=== PATIENT | male | born 1965 | race Hispanic/Latino ===

== ENCOUNTER → 2018-12-29 | Day surgery (SDC) | payer OTHER ==
[~2018-12-29] MED LIST: ATROPINE SULFATE 1 MG/ML VIAL ONE; B&O 60MG R/S 60 MG SUPP PR ONE; BUPIVACAINE HCL 0.5% INJ 30 ML VIAL INJ ONE; CIPRO500 MG PO; FENTANYL CITRATE/PF 100MCG/2 ML INJ ONE; FLOMAX0.4 MG PO; GENTAMICIN 80MG/NS 100 ML 200 ML IV ONE; IOPAMIDOL 300MG/ML 50ML INFUS..BTL IV ONE; LIDOCAINE HCL 2% LOCAL INJ 5 ML SDV VIAL INJ ONE; METHYLPREDNISONE PO; MIDAZOLAM HCL 2 MG/2 ML VIAL ONE; NEOSTIGMINE 1 MG/ML 10ML VIAL ONE; PIPER-TAZ 3.375 GM 50 ML ONE; PROPOFOL IV EMULSION 10 MG/ML 20 ML VIAL ONE; SULFAMETHOXAZO1 EAC1 PO
[2018-12-29 13:15] VITALS: BP 118/77
--- NOTE | 2018-12-30 02:46 | Diagnostic Imaging Report ---
Transrectal ultrasound of the prostate, ultrasound guidance. TECHNIQUE: Sonographic guidance was provided to Dr. Tomy Campfor the purposes of a transrectal prostate biopsy. HISTORY: Hematuria, phimosis FINDINGS: The seminal vesicles are present and unremarkable. The gland size measures 2.5 x 4.3 x 4.9 cm. The volume is 27.7 cubic cm. The peripheral zone is homogeneous without focal nodules. The transition zone demonstrates no discrete nodules. IMPRESSION: As above Signed by: Dr. Maylin Allen MD on 12/30/2018 2:43 AM
--- OUTSIDE RECORDS SUMMARY | 2018-12-31 11:51 | XMS REPORT | Clinical Summary ---
Author Author [facility] Organization [facility] Address Unknown Phone Unavailable Care Team Providers Care County Supervisor Name Role Phone PCP Unavailable Allergies Comments Active Allergy Reactions Severity Noted Date No Known Drug Allergies 09/02/2012 Medications End Date Status Medication Sig Dispensed Refills Start Date Active methylPREDNISolone Take 1 tablet 30 tablet 4 (MEDROL) 4 mg dose by mouth 9 packIndications: daily only Rheumatoid arthritis with positive rheumatoid factor, involving unspecified site Active sulfaSALAzine (SULFAZINE) Take 500 mg 180 tablet 4 500 mg tabletIndications: PO BID after 9 Rheumatoid arthritis with 2 weeks and positive rheumatoid then 1 gm PO factor, involving BID. 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 12/26/2018 Office Visit Ent-Otolaryngology 12/26/2018 Travel 12/03/2018 Travel Rhonda Crooks MD Tracheostomy care (Primary Dx); Vocal cord paresis 11/23/2018 Office Visit Ent-Otolaryngology Rheumatoid arteritis 11/01/2018 Ancillary Radiology Procedure Rheumatoid arteritis 11/01/2018 Ancillary Radiology Procedure Maxx Mohr MD Shaikh, Kashif S, Fellow() Rheumatoid arthritis with positive rheumatoid factor, involving unspecified site (Primary Dx) 11/01/2018 Office Visit Rheumatology Carissa Garcia Interpretation 11/01/2018 Telephone Radha Haddad, Fellow() Rheumatoid arthritis with positive rheumatoid factor, involving unspecified site (Primary Dx) 11/01/2018 Orders Only Rheumatology 11/01/2018 Travel Neptali Hearn NP Alexander, Ronda E, MD Vocal cord paresis (Primary Dx); Tracheostomy care; Tracheostomy in place 09/05/2018 Office Visit Ent-Otolaryngology 09/05/2018 Travel Rosangela Ramos 08/27/2018 Clinical Case Mgt Neptali Hearn NP Alexander, Ronda E, MD Disorder of vocal cords (Primary Dx); Encounter for attention to tracheostomy; Tracheostomy in place 08/08/2018 Office Visit Ent-Otolaryngology Frida Campos Interpretation 08/08/2018 Telephone Oral Surgery Reba Grullon Interpretation 08/08/2018 Telephone 08/08/2018 Travel Rhonda Crooks MD Rheumatoid arthritis involving multiple sites, unspecified rheumatoid factor presence (Primary Dx) 07/20/2018 Orders Only Ent-Otolaryngology Rhonda Crooks MD Rheumatoid arteritis (Primary Dx) 07/11/2018 Orders Only Ent-Otolaryngology Zac Maxwell ResidentRI 07/10/2018 E-Consult Ent-Otolaryngology Rhonda Crooks MD Vocal cord paresis; Rheumatoid arthritis involving multiple sites, unspecified rheumatoid factor presence 07/04/2018 Hospital Lab Encounter Rhonda Crooks MD Vocal cord paresis (Primary Dx); Rheumatoid arthritis involving multiple sites, unspecified rheumatoid factor presence; Shortness of breath 07/04/2018 Office Visit Ent-Otolaryngology 07/04/2018 Travel after 12/30/2017 Social History Date Tobacco Use Types Packs/Day Years Used Former Smoker Smokeless Tobacco: Never Used Food Insecurity Answer Date Recorded Within the past 12 months, you worried that your Never true 09/05/2018 food would run out before you got money to buy more. Within the past 12 months, the food you bought Never true 09/05/2018 just didn't last and you didn't have money to get more. Sex Assigned at Date Recorded Not on file Industry Job Start Date Occupation Not on file Not on file Not on file Travel End Travel History Travel Start No recent travel history available. Last Filed Vital Signs Reading Time Taken Comments Vital Sign 141/66 12/26/2018 11:50 AM CDT Blood Pressure 82 12/26/2018 11:50 AM CDT Pulse 36.7 C (98.1 F) 12/26/2018 11:50 AM CDT Temperature 18 12/26/2018 11:50 AM CDT Respiratory Rate - - Oxygen Saturation - - Inhaled Oxygen Concentration 125.2 kg (276 lb) 12/26/2018 11:50 AM CDT Weight 175.3 cm (5' 9") 12/26/2018 11:50 AM CDT Height 40.76 12/26/2018 11:50 AM CDT Body Mass Index Plan of Treatment Care Team Description Date Type Specialty Ashley Schumacher, Fellow() [address] [place] [address] radha 01/25/2019 Office Visit Rheumatology Health Maintenance Due Date Last Done Comments Colorectal Cancer Scrn 2016 Annual (FIT/FOBT) Age 50 to 75 IMM Influenza Seasonal 03/26/2019 Oct to August (>/=19 yrs) Procedures Comments Procedure Name Priority Date/Time Associated Diagnosis DIFFERENTIAL, MANUAL Routine 12/03/2018 Rheumatoid arthritis with 10:14 AM CDT positive rheumatoid factor, involving unspecified site CBC Routine 12/03/2018 Rheumatoid arthritis with 10:14 AM CDT positive rheumatoid factor, involving unspecified site COMPREHENSIVE METABOLIC Routine 12/03/2018 Rheumatoid arthritis with PANEL 10:14 AM CDT positive rheumatoid factor, involving unspecified site CBC/DIFF Routine 12/03/2018 Rheumatoid arthritis with 10:14 AM CDT positive rheumatoid factor, involving unspecified site XRAY HAND 2 VIEWS Routine 11/01/2018 Rheumatoid arteritis 12:07 PM CDT XRAY HAND 2 VIEWS Routine 11/01/2018 Rheumatoid arteritis 12:07 PM CDT XRAY FOOT 2 VIEWS MIN Routine 11/01/2018 Rheumatoid arteritis 12:07 PM CDT XRAY FOOT 2 VIEWS MIN Routine 11/01/2018 Rheumatoid arteritis 12:07 PM CDT SJOGREN'S AB Routine 11/01/2018 Rheumatoid arthritis with 11:17 AM CDT positive rheumatoid factor, involving unspecified site QUANTIFERON TB GOLD Routine 11/01/2018 11:06 AM CDT QUANTIFERON TB GOLD Routine 11/01/2018 Rheumatoid arthritis with 11:06 AM CDT positive rheumatoid factor, involving unspecified site HEPATITIS PANEL Routine 11/01/2018 Rheumatoid arthritis with 11:06 AM CDT positive rheumatoid factor, involving unspecified site COMPLEMENT C4 Routine 11/01/2018 Rheumatoid arthritis with 11:06 AM CDT positive rheumatoid factor, involving unspecified site COMPLEMENT C3 Routine 11/01/2018 Rheumatoid arthritis with 11:06 AM CDT positive rheumatoid factor, involving unspecified site SANDY Routine 11/01/2018 Rheumatoid arthritis with 11:06 AM CDT positive rheumatoid factor, involving unspecified site COMPREHENSIVE METABOLIC Routine 11/01/2018 Rheumatoid arthritis with PANEL 11:06 AM CDT positive rheumatoid factor, involving unspecified site CBC/DIFF Routine 11/01/2018 Rheumatoid arthritis with 11:06 AM CDT positive rheumatoid factor, involving unspecified site TOTAL PROTEIN/CREATININE Routine 11/01/2018 Rheumatoid arthritis with RATIO, URINE 10:48 AM CDT positive rheumatoid factor, involving unspecified site URINALYSIS Routine 11/01/2018 Rheumatoid arthritis with 10:48 AM CDT positive rheumatoid factor, involving unspecified site CCP IGG ABS Routine 07/04/2018 12:20 PM [facility] [employer] COMPREHENSIVE METABOLIC Routine 07/04/2018 Vocal cord paresis PANEL 12:20 PM [employer] Rheumatoid arthritis involving multiple sites, unspecified rheumatoid factor presence CBC/DIFF Routine 07/04/2018 Vocal cord paresis 12:20 PM [employer] Rheumatoid arthritis involving multiple sites, unspecified rheumatoid factor presence SED RATE Routine 07/04/2018 Vocal cord paresis 12:20 PM [employer] Rheumatoid arthritis involving multiple sites, unspecified rheumatoid factor presence C-REACTIVE PROTEIN HIGH Routine 07/04/2018 Vocal cord paresis SENSITIVITY (CRP-HS) 12:20 PM [employer] Rheumatoid arthritis involving multiple sites, unspecified rheumatoid factor presence RA FACTOR Routine 07/04/2018 Vocal cord paresis 12:20 PM [employer] Rheumatoid arthritis involving multiple sites, unspecified rheumatoid factor presence after 12/30/2017 Results * CBC (12/03/2018 10:14 AM CDT) WBC 9.8 4.5 - 12.0 K/uL [facility] RBC 4.58 (L) 4.60 - 6.20 M/uL [facility] Hemoglobin 13.1 (L) 14.0 - 18.0 g/dL [facility] Hematocrit 41.1 40.0 - 54.0 % [facility] MCV 89.7 82.0 - 92.0 fL [facility] MCH 28.6 27.0 - 31.0 pg [facility] MCHC 31.9 (L) 32.0 - 36.0 g/dL [facility] RDW 51.3 (H) 35.1 - 43.9 fL [facility] Platelet 211 150 - 400 K/uL [facility] Mean Platelet 9.7 9.4 - 12.4 fL [facility] Volume LAB Specimen Blood Performing Organization Address City/State/Zipcode Phone Number [facility] [address] [place] [address] [facility] [address] [place] [address] * COMPREHENSIVE METABOLIC PANEL(DBIL NOT INCLUDED) (12/03/2018 10:14 AM CDT) Only the most recent of 3 results within the time period is included. Sodium 140 136 - 145 mmol/L [facility] Potassium 3.9 3.5 - 5.1 mmol/L [facility] Chloride 107 98 - 107 mmol/L [facility] CO2 26 21 - 31 mmol/L [facility] Glucose 102 70 - 110 mg/dL [facility] Calcium, Total 8.9 8.6 - 10.3 mg/dL [facility] Urea Nitrogen 10.0 7.0 - 25.0 mg/dL [facility] Creatinine 1.0 0.7 - 1.3 mg/dL [facility] Alkaline 41 34 - 104 U/L [facility] Phosphatase LAB ALT 16 7 - 52 U/L [facility] AST 18 13 - 39 U/L [facility] Total Bilirubin 0.4 0.2 - 1.2 mg/dL [facility] Total Protein 6.6 6.0 - 8.3 g/dL [facility] GFR, Estimated >60 mL/min/1.73 m2 [facility] Albumin 3.5 (L) 4.2 - 5.5 g/dL [facility] Anion Gap 7 5 - 16 mmol/L [facility] Specimen Blood Performing Organization Address [facility]/Zipcode Phone Number [facility] [address] [place] [phone] [facility] [address] [place] [phone] * DIFFERENTIAL, MANUAL (12/03/2018 10:14 AM CDT) WBC Corrected 9.8 4.5 - 12.0 K/uL [facility] Neutrophil 62.0 34.0 - 67.9 % [facility] Lymphocyte 20.0 (L) 21.8 - 50.0 % [facility] Monocyte 14.0 (H) 5.3 - 12.0 % [facility] Eosinophil 2.0 0.8 - 5.0 % [facility] Basophil 2.0 (H) 0.2 - 1.2 % [facility] Segs + Bands, 6.08 K/uL [facility] Abs LAB Neutrophil, Abs 6.08 (H) 1.78 - 5.36 K/uL [facility] Lymphocyte, Abs 1.96 1.32 - 3.57 K/uL [facility] Monocyte, Abs 1.37 (H) 0.30 - 0.82 K/uL [facility] Eosinophil, Abs 0.20 0.04 - 0.54 K/uL [facility] Basophil, Abs 0.20 (H) 0.01 - 0.08 K/uL [facility] Cells Counted 100 [facility] Specimen Blood Performing Organization Address City/[facility]/Zipcode Phone Number [facility] [address] [place] [phone] [facility] [address] [place] [phone] * XRAY HAND 2 VIEWS (11/01/2018 12:07 PM CDT) Only the most recent of 2 results within the time period is included. Specimen Impressions Performed At IMPRESSION: SMS Periarticular osseous demineralization may be reflective of early rheumatoid arthropathy. Dictated By: Jj Sierra MD, 11/01/2018 3:07 PM I have reviewed the study and agree with the findings in this report. Signed By: Gera Monaco MD, 11/01/2018 3:08 PM Narrative Performed At Bilateral hand x-rays - 2 view(s), 4 images SMS HISTORY:rheumatoid arthritis COMPARISON: None DISCUSSION: Bone: No acute displaced fracture. No aggressive osseous lesion. Periarticular osseous demineralization. Joints: The joint spaces are well-maintained. No dislocation. Soft tissues: Appear unremarkable. Procedure Note Logan Delgado/Karolina In - 11/01/2018 3:13 PM CDT Bilateral hand x-rays - 2 view(s), 4 images HISTORY: rheumatoid arthritis COMPARISON: None DISCUSSION: Bone: No acute displaced fracture. No aggressive osseous lesion. Periarticular osseous demineralization. Joints: The joint spaces are well-maintained. No dislocation. Soft tissues: Appear unremarkable. IMPRESSION IMPRESSION: Periarticular osseous demineralization may be reflective of early rheumatoid arthropathy. Dictated By: Jj Sierra MD, 11/01/2018 3:07 PM I have reviewed the study and agree with the findings in this report. Signed By: Gera Monaco MD, 11/01/2018 3:08 PM Performing Organization Address City/State/Zipcode Phone Number SMS * XRAY FOOT 2 VIEWS MIN (11/01/2018 12:07 PM CDT) Only the most recent of 2 results within the time period is included. Specimen Impressions Performed At IMPRESSION: SMS Periarticular osseous demineralization may be associated with known diagnosis of rheumatoid arthropathy. Signed By: Gera Monaco MD, 11/02/2018 12:46 PM Narrative Performed At foot x-rays - 2 view(s), right SMS HISTORY:Rheumatoid arthritis COMPARISON: None DISCUSSION: Periarticular osseous demineralization. No acute displaced fracture. No aggressive osseous lesion. Plantar calcaneal enthesophyte Joints: The joint spaces are well-maintained. No dislocation. Soft tissues: Appear unremarkable. Procedure Note Logan Delgado/Karolina In - 11/02/2018 12:51 PM CDT foot x-rays - 2 view(s), right HISTORY: Rheumatoid arthritis COMPARISON: None DISCUSSION: Periarticular osseous demineralization. No acute displaced fracture. No aggressive osseous lesion. Plantar calcaneal enthesophyte Joints: The joint spaces are well-maintained. No dislocation. Soft tissues: Appear unremarkable. IMPRESSION IMPRESSION: Periarticular osseous demineralization may be associated with known diagnosis of rheumatoid arthropathy. Signed By: Gera Monaco MD, 11/02/2018 12:46 PM Performing Organization Address [facility] Phone Number SMS * SJOGREN'S AB (11/01/2018 11:17 AM CDT) Pathologist [facility] Anti SS/A <0.2 LABORATORY Reference range: 0.0 to 0.9 CORPORATION OF Unit: AI [place] Anti SS/B <0.2 LABORATORY Reference range: 0.0 to 0.9 CORPORATION OF Unit: AI [place] Specimen Blood Products (Lab Use Only) - BLOOD Performing Organization Address [facility] Phone Number [employer] [employer] OF [address] [place] [address] HARRY 145 * QUANTIFERON TB GOLD (11/01/2018 11:06 AM CDT) [facility] QuantiFERON Comment LABORATORY Criteria (note) CORPORATION OF The QuantiFERON-TB Gold Plus [place]ARRY result is determined by subtracting the Nil value from either TB antigen (Ag) tube. The mitogen tube serves as a control for the test. Quantiferon TB1 0.21 LABORATORY Unit: IU/mL CORPORATION OF [place] Quantiferon TB2 0.31 LABORATORY Unit: IU/mL [facility]POR[facility] OF [place] QuantiFERON Nil 0.22 LABORATORY Value Unit: IU/mL [facility]POR[facility] OF [place] QuantiFERON >10.00 LABORATORY Mitogen Value Unit: IU/mL [facility]POR[facility] OF [place] Specimen Performing Organization Address [facility] Phone Number [facility] [employer] OF [address] [place] [phone] H[place] 145 * QUANTIFERON TB GOLD (11/01/2018 11:06 AM CDT) [facility] QuantiFERON Incubation performed. LABORATORY Incubation [facility]POR[facility] OF [place] QuantiFERON TB Negative LABORATORY Gold Plus Reference range: Negative [facility]PORATION OF [place] Specimen Blood Performing Organization Address [facility] Phone Number [facility]POR[facility] OF [address] [facility] [place] [address] HARRY 145 * HEPATITIS PANEL (11/01/2018 11:06 AM CDT) HCV IgG Negative NEG BT [facility] 3 HBsAg Negative NEG BT [facility] 3 HAV, IgM Negative NEG BT [facility] 3 HBcAb, IgM Negative NEG BT [facility] 3 Specimen Blood Performing Organization Address City/State/Zipcode Phone Number MISYS BT [facility] 3 * CBC/DIFF (11/01/2018 11:06 AM CDT) Only the most recent of 2 results within the time period is included. WBC 17.6 (H) 4.5 - 12.0 K/uL [facility] 2 RBC 4.70 4.60 - 6.20 M/uL [facility] 2 Hemoglobin 13.4 (L) 14.0 - 18.0 g/dL [place] [address] Hematocrit 41.7 40.0 - 54.0 % [place] [address] MCV 89 82 - 92 fL [facility] 2 MCH 28.5 27.0 - 31.0 pg [facility] 2 MCHC 32.1 32.0 - 36.0 g/dL [place] [address] RDW 50.9 (H) 35.1 - 43.9 fL [facility] 2 Platelets 247 150 - 400 K/uL [facility] 2 Neutrophils 62.3Comment: Corrected on 34.0 - 67.9 % [facility] 2 11/01 AT 1232: Previously reported as: 64.3 Lymphs 22.6 21.8 - 50.0 % [facility] 2 Monocytes 11.2 5.3 - 12.0 % [facility] 2 Eos 1.3 0.8 - 5.0 % [facility] 2 Basos 0.6 0.2 - 1.2 % [facility] 2 Neutrophils 10.96 (H)Comment: Corrected on 1.78 - 5.36 K/uL [facility] 2 (Absolute) 11/01 AT 1232: Previously reported as: 11.31 Lymphs 3.98 (H)Comment: Corrected on 1.32 - 3.57 K/uL [facility] 2 (Absolute) 11/01 AT 1232: Previously reported as: 3.96 Monocytes(Absol 1.97 (H)Comment: Corrected on 0.30 - 0.82 K/uL [facility] 2 eklutna) 11/01 AT 1232: Previously reported as: 1.96 Eos (Absolute) 0.23Comment: Corrected on 0.04 - 0.54 K/uL [facility] 2 11/01 AT 1232: Previously reported as: 0.22 Baso (Absolute) 0.11 (H)Comment: Corrected on 0.01 - 0.08 K/uL [facility] 2 11/01 AT 1232: Previously reported as: 0.10 Atypical Lymph 2 % [facility] 2 Specimen Blood Performing Organization Address [facility] Phone Number [facility] 2 * COMPLEMENT C4 (11/01/2018 11:06 AM CDT) Complement C4 25.2 19 - 52 mg/dL [facility] 1 Specimen Blood Performing Organization Address [facility] Phone Number [facility] BT [facility] 1 * COMPLEMENT C3 (11/01/2018 11:06 AM CDT) Complement C3 141.2 87 - 200 mg/dL [facility] 1 Specimen Blood Performing Organization Address [facility] Phone Number [facility] BT MAIN[facility] 1 * SANDY (11/01/2018 11:06 AM CDT) SANDY Screen Negative NEG BT DIAGNOSTIC IMMUNOLOGY Specimen Blood Performing Organization Address [facility] Phone Number [facility] BT DIAGNOSTIC IMMUNOLOGY * UA CHEMISTRIES (11/01/2018 10:48 AM CDT) Color Yellow [facility] 2 Clarity Clear [facility] 2 Specific 1.019 1.001 - 1.035 BT [facility] [place] 2 pH 6.0 5 - 8 [facility] 2 Protein 1+ (A) NEG BT [facility] 2 Glucose Negative NEG BT [facility] 2 Ketones Negative NEG BT [facility] 2 Bilirubin Negative NEG [facility] 2 Nitrate Negative NEG BT [facility] 2 Urobilinogen,Se <1.0 0.2 - 1.0 EU/dL BT [facility] mi-Qn 2 Leukocyte Negative NEG BT [facility] 2 Occult Blood 3+ (A) NEG BT [facility] 2 RBC 7 (H) 0 - 4 /HPF [facility] 2 WBC 1 0 - 5 /HPF [facility] 2 Epithelial Cell 2 /HPF BT [facility] 2 Mucous Present BT [facility] 2 Specimen Urine Performing Organization Address [facility] Phone Number [facility] 2 * T PROT/CREA RATIO,UR (11/01/2018 10:48 AM CDT) Creatinine, 182.5 20 - 370 mg/dL [facility] Urine 1 T Prot, Ur 0.26 g/L [facility] 1 T Prot/Crea 0.14 0.0 - 0.5 BT [facility] Ratio,Ur 1 Specimen Urine Performing Organization Address [facility] Phone Number [facility] BT [facility] 1 * CCP IGG ABS (07/04/2018 12:20 PM [employer]) CCP Abs IgG/IgA >250 LABORATORY Reference range: 0 to 19 CORPORATION OF Unit: units HARRY (note) Negative <20 Weak - 39 Moderate [id number] - 59 Strong positive>59 (H) Specimen Performing Organization Address [facility] Phone Number [facility] OF [address] [place], [place] [phone] HARRY 145 * CRP, HIGH SENS (07/04/2018 12:20 PM [employer]) CRP, high sens 14.692 (H) <1.0 mg/dL [facility] 1 Specimen Blood Performing Organization Address [facility] Phone Number [facility] 1 * SED RATE (07/04/2018 12:20 PM [employer]) Sed Rate 91 (H) <20 mm/Hr [facility]OD [facility] Specimen Blood Performing Organization Address [facility] Phone Number [facility] [address] [place] [id number] * RA FACTOR (07/04/2018 12:20 PM [employer]) RA Factor 1,754 (H) <14 IU/mL BT [facility] 1 Specimen Blood Performing Organization Address [facility] Phone Number [facility] BT [facility] 1 after 12/30/2017 Insurance Type Payer Benefit Subscriber ID Effective Phone Address Plan / Dates Group [facility] xxxxxxxxxxxx 2018-P [phone] [address] [facility] [id number] [facility] [phone] [employer] PLAN H[employer] PLAN xxxxxxx 2018-9 [address] [place] [address]
--- OUTSIDE RECORDS SUMMARY | 2018-12-31 11:55 | XMS REPORT | Continuity of Care Document ---
Author Author [place] Address Unknown Phone Unavailable Care Team Providers Care Public Safety Director Name Role Phone [employer] Unavailable Unavailable Problems Problem Status Onset Date Classification Date Reported Comments Source Tracheostomy care Active 11/23/2018 12/26/2018 [facility] Vocal cord paresis Active 07/04/2018 12/26/2018 [facility] Encounter for attention to tracheostomy 05/28/2018 10/11/2018 [facility] OTHER Active 03/24/2018 [facility] Sepsis, unspecified organism 01/31/2018 08/11/2018 [facility] SOB Active 01/07/2018 [facility] STRIDOR Active 01/07/2018 [facility] DIFFICULTY BREATHING Active 12/11/2017 [facility] STRIDOR, GI BLEED Active 12/11/2017 [facility] RECURRENT PLEURAL EFFUSION ON RIGHT, ANEUDY Active 12/06/2017 [facility] Pneumonia 10/16/2017 10/19/2017 [facility] SOB 10/16/2017 10/19/2017 [facility] Swelling of lower extremity 10/16/2017 10/19/2017 [facility] DIFF BREATHING Active 10/16/2017 [facility] BACTERIAL PNEUMONIA Active 07/01/2016 [facility] Discharge Diagnosis: Pleurisy 04/11/2016 04/14/2016 [facility] Discharge Diagnosis: Pleural effusion 04/11/2016 04/14/2016 [facility] ABD PAIN Active 03/20/2016 [facility] PLEURAL EFFUSION Active 03/20/2016 [facility] RT PLEURAL EFFUSION Active 03/08/2016 [facility] LT PLEURAL EFFUSION Active 03/04/2016 [facility] LOW BACK PAIN/COUGHING Active 02/03/2016 [facility] PLEURAL EFFSUION, PNEUMONIA Active 02/03/2016 [facility] UTI Active 09/02/2012 12/26/2018 [facility] FLU LIKE SYMPTOMS Active 07/28/2012 [facility] URINARY PROBLEMS Active 05/12/2011 [facility] Disorder of vocal cords Active 12/26/2018 [facility] Encounter for attention to tracheostomy Active 12/26/2018 [facility] Tracheostomy in place Active 12/26/2018 [facility] Rheumatoid arthritis involving multiple sites, unspecified rheumatoid factor presence Active 12/26/2018 [facility] Rheumatoid arteritis Active 12/26/2018 [facility] Shortness of breath Active 12/26/2018 [facility] Rheumatoid arthritis with positive rheumatoid factor, involving unspecified site Active 12/26/2018 [facility] Dietary counseling Active 12/26/2018 [facility] Exercise counseling Active 12/26/2018 [facility] Rheumatoid arthritis Resolved Problem 10/11/2018 [facility] [place] Pleural effusion Resolved Problem 10/11/2018 [facility] Paralysis of vocal cords and larynx, bilateral 10/11/2018 [facility] Rheumatoid arthritis, unspecified 10/11/2018 [facility] jail use of anticoagulants 10/11/2018 [facility] Other nursing home drug therapy 10/11/2018 [facility] Nicotine dependence, cigarettes, uncomplicated 10/11/2018 [facility] Pneumonia due to Pseudomonas 08/11/2018 [facility] Acute respiratory failure with hypoxia 08/11/2018 [facility] Acute on chronic diastolic heart failure 08/11/2018 [facility] Chronic obstructive pulmonary disease with acute lower respiratory infection 08/11/2018 [facility] Dependence on respirator [ventilator] status 08/11/2018 [facility] Severe sepsis without septic shock 08/11/2018 [facility] Major depressive disorder, single episode, unspecified 08/11/2018 [facility] Anxiety disorder, unspecified 08/11/2018 [facility] Anemia, unspecified 08/11/2018 [facility] Obstructive sleep apnea (pediatric) 08/11/2018 [facility] Unspecified atrial fibrillation 08/11/2018 [facility] Dysphagia, unspecified 08/11/2018 [facility] Sleep deprivation 08/11/2018 [facility] PNEUMONIA, UNSPECIFIED ORGANISM Active [facility] PLEURAL EFFUSION, NOT ELSEWHERE CLASSIFI Active [facility] SHORTNESS OF BREATH Active [facility] STRIDOR Active [facility] GASTROINTESTINAL HEMORRHAGE, UNSPECIFIED Active [facility] Medications Medication Details Route Status Patient Instructions Ordering Provider Order Date Source methylPREDNISolone (MEDROL) 4 mg dose pack Take 1 tablet by mouth daily only Oral Active 11/01/2018 [facility] sulfaSALAzine (SULFAZINE) 500 mg tablet Take 500 mg PO BID after 2 weeks and then 1 gm PO BID. Active 11/01/2018 [facility] levofloxacin 750 mg oral tablet 750 mg=1 tab, PO, [id number], X 10 day, # 10 tab, 0 Refill(s), Pharmacy: [id number] No Longer Active 01/20/2018 [facility] Furosemide 20 MG Oral Tablet 20 mg=1 tab, PO, Daily, # 30 tab, 0 Refill(s), Pharmacy: [place] [id number] Active 01/20/2018 [facility] AMIODarone 200 mg oral tablet 200 mg=1 tab, PO, Daily, # 30 tab, 0 Refill(s), Pharmacy: [place] [id number] Active 01/20/2018 [facility] pantoprazole 40 mg oral enteric coated tablet 40 mg=1 tab, PO, BID-Before Meals, # 60 tab, 0 Refill(s), Pharmacy: [place] [id number] Active 01/20/2018 [facility] leflunomide 10 mg oral tablet 10 mg=1 tab, PO, Bedtime, # 30 tab, 0 Refill(s), Pharmacy: [place] [id number] Active 01/20/2018 [facility] rivaroxaban 20 mg oral tablet 20 mg=1 tab, PO, QPM, # 30 tab, 0 Refill(s), Pharmacy: [place] [id number] Active 01/20/2018 [facility] Levaquin 750 mg, 3 tab, Route: PO, Drug form: TAB, [id number], Dosing Weight 107.7, kg, Priority: STAT, Start date: 01/20/18 12:52:00 CDT, Duration: 10 day, Stop date: 01/29/18 12:52:00 CDT, ABX Indication: Pneumon iaNotes: Do not give w/antacids, dairy pdt & minerals Take 1 hr before or 2 hr after dairy pdt (Same as:Levaquin) No Longer Active 01/20/2018 [facility] Amiodarone 200 mg, 1 tab, Route: PO, Drug form: TAB, Daily, Dosing Weight 107.7, kg, Priority: Routine, Start date: 01/20/18 9:00:00 CDT, Duration: 30 day, Stop date: 02/18/18 9:00:00 CDTNotes: (Same as: Cordarone) No Longer Active 01/20/2018 [facility] Mucinex 600 mg, 1 tab, Route: PO, Drug form: ERTAB, Q12H, Dosing Weight 107.7, kg, Priority: NOW, Start date: 01/19/18 21:08:00 CDT, Duration: 30 day, Stop date: 02/18/18 21:00:00 CDTNotes: (Same as: Guaifenesin LA, Humibid LA, Mucinex) "Do Not Crush" Take medication with plenty of water. No Longer Active 01/20/2018 [facility] cefepime 2 gm, Route: IVPB, [id number], Dosing Weight 107.7, kg, (CrCl >/=50 ml/min, INFECTION CONTROL RN infection or neutropenic fever), Start date: 01/18/18 0:00:00 CDT, Duration: 10 day, Stop date: 01/27/18 16:00:00 CDT, ABX Indication: PneumoniaNotes: (Same as: Maxipime) MEDICATION WASTE Product Size: 2000 mg Product Wasted: ___ mg No Longer Active 01/18/2018 [facility] Amiodarone 200 mg, 1 tab, Route: PO, Drug form: TAB, BID, Dosing Weight 107.7, kg, Start date: 01/16/18 21:00:00 CDT, Duration: 30 day, Stop date: 02/15/18 9:00:00 CDTNotes: (Same as: Cordarone) No Longer Active 01/17/2018 [facility] vancomycin + Sodium Chloride 0.9% IV 500 mL 1,750 mg, Route: IVPB, [id number], Start date: 01/16/18 19:00:00 CDT, Duration: 12 day, Stop date: 01/28/18 7:00:00 CDT, ABX Indication: PneumoniaNotes: TIME CRITICAL MEDICATION (Same As: Vancocin) Infusion rate 2001 mg: infuse over 2.5 hours For adult patients only: Round to nearest 250 mg per Medical Staff approval MEDICATION WASTE Product Size: 1000 mg Product Wasted: ___ mg No Longer Active 01/17/2018 [facility] Protonix 40 mg, 1 tab, Route: PO, Drug form: ECTAB, BID- Before Meals, Start date: 01/16/18 17:30:00 CDT, Duration: 30 day, Stop date: 02/15/18 16:30:00 CDTNotes: Tablet should not be chewed or crushed. (Same as: Protonix) No Longer Active 01/16/2018 [facility] ATTN RN please do not admin vanc dose until trough drawn* ATTN RN please do not admin vanc dose until trough drawn*, ATTN RN, Drug form: MISC, Route: MISC, ONCE, 01/16/18 17:00:00 CDT, Stop date: 01/16/18 17:00:00 CDT Inactive 01/16/2018 [facility] Xarelto 20 mg, 1 tab, Route: PO, Drug form: TAB, QPM, Dosing Weight 107.7, kg, Start date: 01/16/18 17:00:00 CDT, Duration: 30 day, Stop date: 02/14/18 17:00:00 CDTNotes: (Same as: Xarelto) Administer with food No Longer Active 01/16/2018 [facility] Digoxin 0.25 MG Oral Tablet 0.25 mg, 1 tab, Route: PO, Drug form: TAB, Daily, Dosing Weight 107.7, kg, Start date: 01/16/18 9:00:00 CDT, Duration: 30 day, Stop date: 02/14/18 9:00:00 CDTNotes: Take on an Empty Stomach (Same as: Lanoxin) No Longer Active 01/16/2018 [facility] Lovenox 110 mg, 0.73 mL, Route: SUB-Q, Drug form: INJ, [id number], Dosing Weight 107.7, kg, Start date: 01/15/18 13:00:00 CDT, Duration: 30 day, Stop date: 02/14/18 1:00:00 CDT No Longer Active 01/15/2018 [facility] Amiodarone 150 mg, 3 mL, Route: IVPB, ONCE, Dosing Weight 107.7, kg, Start date: 01/15/18 10:51:00 CDT, Stop date: 01/15/18 10:51:00 CDTNotes: Central administration only for concentrations > 2 mg/ml. "Recommendation: Use an in-line filter during administration for continuous infusions to reduce the incidence of phlebitis" (Same as Codarone) MEDICATION WASTE Product Size: 150 mg Product Wasted: ___ mg Inactive 01/15/2018 [facility] AMIODarone 900 mg in D5W 500 ml IV 900 mg + Dextrose 5% in Water IV 482 mL 900 mg, 18 mL, Rate: 1 mg/min for 6 hours, then reduce to 0.5 mg/min, Dosing Weight 107.7, kg, Route: IV, Total Volume: 500, Start Date: 01/15/18 10:51:00 CDT, Duration: 1 day, Stop date: 01/16/18 10:50:00 CDT, Replace Every: 24 hrNotes: Central administration only for concentration > 2 mg/ml. Use Glass Bottle or Non PVC Bag "Use 0.22 micron in-line filter" MEDICATION WASTE Product Size: 900 mg Product Wasted: ___ mg No Longer Active 01/15/2018 [facility] Lopressor 5 mg, 5 mL, Route: IVP, Drug form: INJ, ONCE, Dosing Weight 107.7, kg, PRN Other -See Comment, Start date: 01/15/18 10:30:00 CDTNotes: (Same as: Lopressor) Push over 2 minutes Inactive 01/15/2018 [facility] NS (Bolus) IV 1,000 mL, 1,000 ml/hr, Infuse Over: 1 hr, Route: IV, 1,000, Drug form: INJ, ONCE, Priority: STAT, Dosing Weight 107.7 kg, Start date: 01/15/18 10:22:00 CDT, Stop date: 01/15/18 10:22:00 CDT Inactive 01/15/2018 [facility] Metoprolol 5 mg, 5 mL, Route: IVP, Drug form: INJ, ONCE, Dosing Weight 107.7, kg, Start date: 01/15/18 10:18:00 CDT, Stop date: 01/15/18 10:18:00 CDTNotes: (Same as: Lopressor) Push over 2 minutes Inactive 01/15/2018 [facility] Digoxin 250 microgram, 1 mL, Route: IV, Drug form: INJ, ONCE, Dosing Weight 107.7, kg, Start date: 01/15/18 4:47:00 CDT, Stop date: 01/15/18 4:47:00 CDTNotes: (Same as: Lanoxin) Inactive 01/15/2018 [facility] Metoprolol 2.5 mg, 2.5 mL, Route: IV, Drug form: INJ, ONCE, Dosing Weight 107.7, kg, Start date: 01/15/18 2:21:00 CDT, Stop date: 01/15/18 2:21:00 CDTNotes: (Same as: Lopressor) Push over 2 minutes Inactive 01/15/2018 [facility] Diltiazem 5 mg, 1 mL, Route: IV, Drug form: INJ, ONCE, Dosing Weight 107.7, kg, Start date: 01/15/18 1:26:00 CDT, Stop date: 01/15/18 1:26:00 CDTNotes: (Same as: Cardizem) Inactive 01/15/2018 [facility] Zoloft 25 mg, 0.5 tab, Route: PO, Drug form: TAB, Bedtime, Dosing Weight 107.7, kg, Start date: 01/14/18 21:00:00 CDT, Duration: 30 day, Stop date: 02/12/18 21:00:00 CDTNotes: (Same as: Zoloft) No Longer Active 01/15/2018 [facility] cefepime 1 gm, Route: IVPB, [id number], Dosing Weight 107.7, kg, (CrCl >/=50 ml/min), Start date: 01/14/18 18:00:00 CDT, Duration: 10 day, Stop date: 01/24/18 10:00:00 CDT, ABX Indication: ED - Suspected SepsisNotes: (Same As: Maxipime) MEDICATION WASTE Product Size: 1000 mg Product Wasted: ___ mg No Longer Active 01/14/2018 [facility] Vancomycin Route: IVPB, [id number], Dosing Weight 107.7, kg, Start date: 01/14/18 18:00:00 CDT, Duration: 14 day, Stop date: 01/28/18 6:00:00 CDT, ABX Indication: ED - Suspected SepsisNotes: TIME CRITICAL MEDICATI ON (Same As: Vancocin) Infusion rate 2001 mg: infuse over 2.5 hours For adult patients only: Round to nearest 250 mg per Medical Staff approval MEDICATION WASTE Product Size: 1000 mg Product Wasted: ___ mg No Longer Active 01/14/2018 [facility] Tylenol 650 mg, 2 tab, Route: PO, Drug form: TAB, Q6H, Dosing Weight 107.7, kg, PRN Pain 1-3/Temp > 100.4 F, Start date: 01/14/18 17:33:00 CDT, Duration: 30 day, Stop date: 02/13/18 17:32:00 CDTNotes: Do not exceed 4 gm/day. (Same as: Tylenol) No Longer Active 01/14/2018 [facility] Zoloft 25 mg, 0.5 tab, Route: PO, Drug form: TAB, ONCE, Dosing Weight 107.7, kg, Start date: 01/13/18 22:00:00 CDT, Stop date: 01/13/18 22:00:00 CDTNotes: (Same as: Zoloft) Inactive 01/14/2018 [facility] Melatonin 3 MG Extended Release Tablet 3 mg, 1 tab, Route: PO, Drug Form: TAB, Dosing Weight 107.7, kg, Bedtime, PRN Insomnia, Start date: 01/13/18 16:16:00 CDT, Duration: 30 day, Stop date: 02/12/18 16:15:00 CDTNotes: (Same as: Melatonin) No Longer Active 01/13/2018 [facility] D5W 1/2NS 1,000 mL 1,000 mL, Rate: 100 ml/hr, Infuse over: 10 hr, Route: IV, Dosing Weight 107.7 kg, Total Volume: 1,000, Start date: 01/13/18 14:04:00 CDT, Duration: 30 day, Stop date: 02/12/18 14:03:00 CDT, 2.36, m2 No Longer Active 01/13/2018 [facility] D5NS 1000 mL 1,000 mL, Rate: 100 ml/hr, Infuse over: 10 hr, Route: IV, Dosing Weight 107.7 kg, Total Volume: 1,000, Start date: 01/13/18 14:04:00 CDT, Duration: 30 day, Stop date: 02/12/18 14:03:00 CDT, 2.36, m2 Inactive 01/13/2018 [facility] Zofran 4 mg, 2 mL, Route: IVP, Drug form: INJ, Q8H, Dosing Weight 107.7, kg, PRN Nausea, Start date: 01/12/18 19:38:00 CDT, Duration: 30 day, Stop date: 02/11/18 19:37:00 CDTNotes: (Same as: Zofran) MEDICATION WASTE Product Size: 4 mg Product Wasted: ___ mg No Longer Active 01/13/2018 [facility] Morphine 6 mg, 3 mL, Route: PO, Drug form: SOLN, Q4H, Dosing Weight 107.7, kg, PRN Pain Score 7-10, Start date: 01/12/18 14:41:00 CDT, Duration: 30 day, Stop date: 02/11/18 14:40:00 CDTNotes: (Same as:MORPhine Sulfate) No Longer Active 01/12/2018 [facility] Furosemide 20 MG Oral Tablet 20 mg, 1 tab, Route: PO, Drug form: TAB, Daily, Dosing Weight 107.7, kg, Start date: 01/12/18 9:00:00 CDT, Duration: 30 day, Stop date: 02/10/18 9:00:00 CDTNotes: (Same as: Lasix) May cause GI upset. Give with food or milk. No Longer Active 01/12/2018 [facility] Fentanyl 25 microgram, 0.5 mL, Route: IV, Drug form: INJ, Q2H, Dosing Weight 107.7, kg, PRN Pain Score 6-10, Start date: 01/11/18 9:20:00 CDT, Duration: 30 day, Stop date: 02/10/18 9:19:00 CDTNotes: (Same as: Sublimaze) Preservative free. No Longer Active 01/11/2018 [facility] glycopyrrolate (ANES) Route: IV, Drug form: INJ, ONCE, Stop date: 01/10/18 9:46:00 CDT Inactive 01/10/2018 [facility] neostigmine (ANES) Route: IV, Drug form: INJ, ONCE, Stop date: 01/10/18 9:46:00 CDT Inactive 01/10/2018 [facility] dexamethasone (ANES) Route: IV, Drug form: INJ, ONCE, Stop date: 01/10/18 9:31:00 CDT Inactive 01/10/2018 [facility] fentaNYL (ANES) Route: IV, Drug form: INJ, ONCE, Stop date: 01/10/18 9:26:00 CDT Inactive 01/10/2018 [facility] rocuronium (ANES) Route: IV, Drug form: INJ, ONCE, Stop date: 01/10/18 9:26:00 CDT Inactive 01/10/2018 [facility] propofol (ANES) Route: IV, Drug form: INJ, ONCE, Stop date: 01/10/18 9:26:00 CDT Inactive 01/10/2018 [facility] ceFAZolin (ANES) Route: IV, Drug form: INJ, ONCE, Stop date: 01/10/18 9:26:00 CDT Inactive 01/10/2018 [facility] midazolam (ANES) Route: IV, Drug form: SOLN, ONCE, Stop date: 01/10/18 9:16:00 CDT Inactive 01/10/2018 [facility] Lactated Ringers Injection IV (ANES) 1000 mL Route: IV, Total Volume: 1,000, Start date: 01/10/18 8:20:00 CDT, Stop date: 01/10/18 9:20:00 CDT Inactive 01/10/2018 [facility] Epinephrine 0.01 MG/ML / Lidocaine Hydrochloride 10 MG/ML Injectable Solution 30 mL, Route: SUB-Q, Drug Form: INJ, Dosing Weight 107.7, kg, ONCE, Start date: 01/10/18 7:25:00 CDT, Stop date: 01/10/18 7:25:00 CDTNotes: (Same as: Xylocaine w/Epinephrine) Inactive 01/10/2018 [facility] leflunomide 10 mg, 1 tab, Route: PO, Drug form: TAB, Bedtime, Dosing Weight 107.7, kg, Start date: 01/08/18 21:00:00 CDT, Duration: 30 day, Stop date: 02/06/18 21:00:00 CDTNotes: (Same as: Arava) No Longer Active 01/09/2018 [facility] pantoprazole 40 mg, 1 tab, Route: PO, Drug form: ECTAB, BID-Before Meals, Dosing Weight 107.7, kg, Start date: 01/08/18 16:30:00 CDT, Duration: 30 day, Stop date: 02/07/18 7:30:00 CDTNotes: Tablet should not be c hewed or crushed. (Same as: Protonix) Inactive 01/08/2018 [facility] Prevacid 30 mg, 10 mL, Route: NG, Drug form: SUSP, BID- Before Meals, Start date: 01/08/18 16:30:00 CDT, Duration: 30 day, Stop date: 02/07/18 7:30:00 CDTNotes: Take 1 hour before or 2 hours after meal; Expires in 14 days. Shake well before use. (Same as:Prevacid) Compounded Product - formulation not commercially available No Longer Active 01/08/2018 [facility] Carafate 1 gm, 1 tab, Route: PO, Drug form: TAB, QID-Before Meals, Dosing Weight 107.7, kg, Start date: 01/08/18 11:30:00 CDT, Duration: 30 day, Stop date: 02/07/18 7:30:00 CDT No Longer Active 01/08/2018 [facility] Furosemide 20 MG Oral Tablet 20 mg, 1 tab, Route: PO, Drug form: TAB, Q12H, Dosing Weight 107.7, kg, Start date: 01/08/18 10:24:00 CDT, Duration: 30 day, Stop date: 02/07/18 9:00:00 CDTNotes: (Same as: Lasix) May cause GI upset. Give with food or milk. No Longer Active 01/08/2018 [facility] Albuterol 0.83 MG/ML Inhalant Solution 2.49 mg, 3 mL, Route: NEB, Drug form: SOLN, PRN, Dosing Weight 107.7, kg, PRN Respiratory Pathway, Start date: 01/08/18 10:21:00 CDT, Duration: 30 day, Stop date: 02/07/18 10:20:00 CDTNotes: SEE RT DOCUMENTATION (Same as: Proventil) No Longer Active 01/08/2018 [facility] Mupirocin 1 appl, Route: NASAL, Q12H, Drug form: OINT, Start date: 01/08/18 9:00:00 CDT, Duration: 5 day, Stop date: 01/12/18 21:00:00 CDT, MRSA Decolonization No Longer Active 01/08/2018 [facility] Famotidine 20 mg, 2 mL, Route: IVP, Drug form: INJ, Q12H, Dosing Weight 107.7, kg, Start date: 01/08/18 9:00:00 CDT, Duration: 30 day, Stop date: 02/06/18 21:00:00 CDTNotes: (Same as: Pepcid) Can be dilute in 5-10cc NS IVP: Slow IV push over at least 2 minutes. Inactive 01/08/2018 [facility] chlorhexidine gluconate 1.2 MG/ML Mouthwash 15 mL, Route: Swab Mouth, Q12H, Drug form: LIQ, Start date: 01/07/18 21:00:00 CDT, Duration: 30 day, Stop date: 02/06/18 9:00:00 CDTNotes: (Same As: Peridex) No Longer Active 01/08/2018 [facility] heparin 5,000 unit, 1 mL, Route: SUB-Q, Drug form: INJ, Q12H, Dosing Weight 107.7, kg, Start date: 01/07/18 21:00:00 CDT, Duration: 30 day, Stop date: 02/06/18 9:00:00 CDTNotes: porcine heparin No Longer Active 01/08/2018 [facility] Famotidine 20 mg, Route: IVPB, Q12H, Dosing Weight 107.7, kg, Start date: 01/07/18 21:00:00 CDT, Duration: 30 day, Stop date: 02/06/18 9:00:00 CDT Inactive 01/08/2018 [facility] ocular lubricant 1 appl, Route: BOTH EYES, Q6H, Drug form: OINT, Start date: 01/07/18 18:00:00 CDT, Duration: 30 day, Stop date: 02/06/18 12:00:00 CDTNotes: (mineral oil/petrolatum,white 3.5 gm oph OIN) (Same as:Hypo tears) No Longer Active 01/07/2018 [facility] chlorhexidine gluconate 1.2 MG/ML Mouthwash 15 mL, Route: Swab Mouth, PRN, Drug form: LIQ, PRN Other -See Comment, Start date: 01/07/18 16:03:00 CDT, Duration: 30 day, Stop date: 02/06/18 16:02:00 CDTNotes: (Same As: Peridex) No Longer Active 01/07/2018 [facility] chlorhexidine gluconate 1.2 MG/ML Mouthwash 15 mL, Route: Swab Mouth, PRN, PRN Other -See Comment, Start date: 01/07/18 16:02:00 CDT, Duration: 30 day, Stop date: 02/06/18 16:01:00 CDT Inactive 01/07/2018 [facility] Midazolam 50 mg, 50 mL, Rate: Titrate, Start Dose: 1 mg/hr, Titration: Rebolus 1 mg IV and/or Titrate infusion by 1 mg/hour every 30 minutes, Goal(s): -2, Max Dose: 10 mg/hr, Route: IV, Dosing Weight 107.7 kg, To mana Volume: 50, Start date: 01/07/18 11:25:00 CDT...Notes: (Same as: Versed) No Longer Active 01/07/2018 [facility] Fentanyl 1,250 microgram, 250 mL, Rate: Titrate, Start Dose: 50 microgram/hr, Titration: 25 microgram/hour every 15 minutes, Goal(s): - 2, Max Dose: 300 microgram/hr, Route: IV, Dosing Weight 107.7 kg, Total Volume: 250, Start date: 01/07/18 11:25:00 CDT, Durat...Notes: Concentration: 5 microgram / ml No Longer Active 01/07/2018 [facility] methylPREDNISolone SODium SUCCinate 20 mg, 0.5 mL, Route: IV, Drug form: INJ, Daily, Dosing Weight 107.7, kg, Start date: 01/07/18 9:00:00 CDT, Duration: 30 day, Stop date: 02/05/18 9:00:00 CDTNotes: (Same as:Solu-MEDROL, A-Methapred) No Longer Active 01/07/2018 [facility] Rocephin 1 gm, Route: IV, [id number], Dosing Weight 107.7, kg, Start date: 01/07/18 7:00:00 CDT, Duration: 30 day, Stop date: 02/05/18 7:00:00 CDT, ABX Indication: Other (specify in Comments)Notes: (Same As: Roceph in). Use with 100 mL NS and infuse over 30 min MEDICATION WASTE Product Size: 1000 mg Product Wasted: ___ mg No Longer Active 01/07/2018 [facility] Rocephin + sterile water 10 mL 1 gm, Route: IV, [id number], Dosing Weight 107.7, kg, Start date: 01/07/18 7:00:00 CDT, Duration: 30 day, Stop date: 02/05/18 7:00:00 CDT, ABX Indication: Other (specify in Comments)Notes: (Same As: Rocephin). Use with 100 mL NS and infuse over 30 min MEDICATION WASTE Product Size: 1000 mg Product Wasted: ___ mg No Longer Active 01/07/2018 [facility] Nurse pls update Height/Weight/Allergies in adhoc Nurse pls update Height/Weight/Allergies in adhoc, REMINDER, Drug form: MISC, Route: MISC, Q15Min, 01/07/18 6:15:00 CDT, Duration: 1 day, Stop date: 01/08/18 6:00:00 CDT Inactive 01/07/2018 [facility] leflunomide 10 mg oral tablet 10 mg=1 tab, PO, Bedtime, Daily, 0 Refill(s) No Longer Active 01/07/2018 [facility] Vitamin D3 0 Refill(s) No Longer Active 01/07/2018 [facility] multivitamin Daily, 0 Refill(s) No Longer Active 01/07/2018 [facility] Albuterol 0.833 MG/ML / Ipratropium [place] 0.167 MG/ML Inhalant Solution 3 mL, Route: NEB, Drug Form: SOLN, Dosing Weight 107.2, kg, ONCE, STAT, Start date: 01/07/18 1:33:00 CDT, Stop date: 01/07/18 1:33:00 CDT Inactive 01/07/2018 [facility] Racepinephrine 0.5 mL, Route: NEB, Dosing Weight 107.2, kg, ONCE, STAT, Start date: 01/07/18 1:33:00 CDT, Stop date: 01/07/18 1:33:00 CDT Inactive 01/07/2018 [facility] Saline Flush 0.9% 10 mL, Route: IVP, Drug Form: INJ, Dosing Weight 107.2, kg, PRN, PRN Line Flush, Start date: 01/07/18 1:33:00 CDT, Duration: 30 day, Stop date: 02/06/18 1:32:00 CDTNotes: (Same as: BD Posiflush) Inactive 01/07/2018 [facility] methylPREDNISolone SODium SUCCinate 125 mg, 2 mL, Route: IVP, Drug form: INJ, ONCE, Dosing Weight 107.2, kg, Priority: STAT, Start date: 01/07/18 1:33:00 CDT, Stop date: 01/07/18 1:33:00 CDTNotes: (Same as:Solu- MEDROL, A-Methapred) Inactive 01/07/2018 [facility] Racepinephrine 22.5 MG/ML Inhalant Solution 0.5 mL, Route: NEB, Dosing Weight 107.2, kg, ONCE, STAT, Start date: 01/07/18 1:29:00 CDT, Stop date: 01/07/18 1:29:00 CDT Inactive 01/07/2018 [facility] amoxicillin 500 mg oral capsule 1,000 mg=2 cap, PO, BID, X 10 day, # 40 cap, 0 Refill(s), Pharmacy: [facility] [id number] Active 12/15/2017 [facility] Sucralfate 1000 MG Oral Tablet [Carafate] 1 gm=1 tab, PO, QID, # 120 tab, 0 Refill(s), Pharmacy: [facility] [id number] Active 12/15/2017 [facility] pantoprazole 40 mg oral enteric coated tablet 40 mg=1 tab, PO, BID, # 60 tab, 0 Refill(s), Pharmacy: [facility] [id number] Active 12/15/2017 [facility] clarithromycin 250 mg oral tablet 500 mg=2 tab, PO, Q12H, X 10 day, # 40 tab, 0 Refill(s), Pharmacy: [facility] [id number] Active 12/15/2017 [facility] pantoprazole 40 mg, Route: IVP, Drug form: INJ, Q12H, Dosing Weight 113.636, kg, Start date: 12/15/17 9:00:00 CDT, Duration: 30 day, Stop date: 01/13/18 21:00:00 CDTNotes: For IV push reconstitute with 10 ml 0.9% so dium chloride and push over 2 minutes. (Same as: Protonix) No Longer Active 12/15/2017 [facility] Clarithromycin 500 mg, 2 tab, Route: PO, Drug form: TAB, Q12H, Dosing Weight 107.2, kg, Start date: 12/14/17 21:00:00 CDT, Stop date: 12/24/17 9:00:00 CDTNotes: (Same As: Biaxin) No Longer Active 12/15/2017 [facility] Protonix 40 mg, 1 tab, Route: PO, Drug form: ECTAB, BID, Dosing Weight 107.2, kg, Start date: 12/14/17 17:00:00 CDT, Duration: 30 day, Stop date: 01/13/18 9:00:00 CDTNotes: Tablet should not be chewed or crushed. (Same as: Protonix) No Longer Active 12/14/2017 [facility] Clarithromycin 500 mg, 2 tab, Route: PO, Drug form: TAB, Q12H, Dosing Weight 107.2, kg, Start date: 12/14/17 17:00:00 CDT, Stop date: 12/24/17 9:00:00 CDTNotes: (Same As: Biaxin) Inactive 12/14/2017 [facility] Amoxicillin 1,000 mg, 2 cap, Route: PO, Drug form: CAP, BID, Dosing Weight 107.2, kg, Start date: 12/14/17 17:00:00 CDT, Duration: 10 day, Stop date: 12/24/17 9:00:00 CDTNotes: (Same as: Amoxil) No Longer Active 12/14/2017 [facility] Solu-Medrol 40 mg, 1 mL, Route: IV, Drug form: INJ, Q6Hnow, Dosing Weight 107.2, kg, Priority: NOW, Start date: 12/12/17 20:52:00 CDT, Duration: 30 day, Stop date: 01/11/18 14:52:00 CDTNotes: (Same as:Solu-MEDROL, A-Methapred) No Longer Active 12/13/2017 [facility] tramadol hydrochloride 50 MG Oral Tablet 50 mg, 1 tab, Route: PO, Drug form: TAB, Q4H, Dosing Weight 107.2, kg, PRN Pain Score 4-6, Start date: 12/12/17 20:52:00 CDT, Duration: 30 day, Stop date: 01/11/18 20:51:00 CDTNotes: Not to exceed 400mg/day. (Same As: Ultram) No Longer Active 12/13/2017 [facility] Protonix 40 mg, Route: IVP, Drug form: INJ, BID, Dosing Weight 107.2, kg, Start date: 12/12/17 17:00:00 CDT, Duration: 30 day, Stop date: 01/11/18 9:00:00 CDTNotes: For IV push reconstitute with 10 ml 0.9% sodium chloride and push over 2 minutes. (Same as: Protonix) No Longer Active 12/12/2017 [facility] Sucralfate 100 MG/ML Oral Suspension [Carafate] 1 gm, 1 tab, Route: PO, Drug form: TAB, QID, Dosing Weight 107.2, kg, Start date: 12/12/17 17:00:00 CDT, Duration: 30 day, Stop date: 01/11/18 13:00:00 CDTNotes: May interfere w/enteral feeds - Take 1 hr before or 2 hr after antacids, dairy pdt, meals & minerals - On empty stomach. For patients unable to swallow tablet, dissolve in 10mL - 30mL of water or juice and stir before giving. (Same As: Carafate) No Longer Active 12/12/2017 [facility] sodium phosphate 15 mmol, 5 mL, Route: IVPB, PRN, Dosing Weight 113.636, kg, PRN Abnormal Lab Result, Start date: 12/12/17 2:17:00 CDT, Duration: 30 day, Stop date: 01/11/18 2:16:00 CDT, FOR ICU USE ONLY No Longer Active 12/12/2017 [facility] Potassium Chloride 20 mEq, 15 mL, Route: NJ, Drug form: LIQ, PRN, Dosing Weight 113.636, kg, PRN Abnormal Lab Result, Start date: 12/12/17 2:17:00 CDT, Duration: 30 day, Stop date: 01/11/18 2:16:00 CDT, FOR ICU USE ONLYNotes: (Same as: Potassium Chloride) No Longer Active 12/12/2017 [facility] Calcium Carbonate 500 MG Chewable Tablet 500 mg, 1 tab, Route: PO, Drug form: CHEWTAB, PRN, Dosing Weight 113.636, kg, PRN Abnormal Lab Result, FOR ICU USE ONLY, Start date: 12/12/17 2:17:00 CDT, Duration: 30 day, Stop date: 01/11/18 2:16:00 CDTNotes: (Same As: Tums) Calcium Carbonate 500 fy=931 mg elemental calcium Dose= mg calcium carbonate ( mg elemental calcium) No Longer Active 12/12/2017 [facility] Calcium Gluconate 1 gm, 50 mL, Route: IVPB, Drug form: INJ, PRN, Dosing Weight 113.636, kg, PRN Abnormal Lab Result, Start date: 12/12/17 2:17:00 CDT, Duration: 30 day, Stop date: 01/11/18 2:16:00 CDT, FOR ICU USE ONLYNotes: WASTE: F/P - Sink; E - Municipal Trash Bin No Longer Active 12/12/2017 [facility] Magnesium Sulfate 2 gm, 50 mL, Route: IVPB, Drug form: INJ, PRN, Dosing Weight 113.636, kg, PRN Abnormal Lab Result, Start date: 12/12/17 2:17:00 CDT, Duration: 30 day, Stop date: 01/11/18 2:16:00 CDT, FOR ICU USE ONLYNotes: WASTE: F/P - Sink; E - Municipal Trash Bin No Longer Active 12/12/2017 [facility] Magnesium Oxide 800 mg, 2 tab, Route: PO, Drug form: TAB, PRN, Dosing Weight 113.636, kg, PRN Abnormal Lab Result, FOR ICU USE ONLY, Start date: 12/12/17 2:17:00 CDT, Duration: 30 day, Stop date: 01/11/18 2:16:00 CDTNotes: (Same as: Mag-Ox 400) Magnesium oxide [id number] elemental magnesium Dose=____mg magnesium oxide (___mg elemental magnesium) No Longer Active 12/12/2017 [facility] potassium phosphate 45 mmol, 15 mL, Route: IVPB, PRN, Dosing Weight 113.636, kg, PRN Abnormal Lab Result, Start date: 12/12/17 2:17:00 CDT, Duration: 30 day, Stop date: 01/11/18 2:16:00 CDT, FOR ICU USE ONLYNotes: (Same as: K Phosphate.) 1 mMol phoshate has 1.47 mEq potassium Infuse over 4 hours No Longer Active 12/12/2017 [facility] potassium phosphate-sodium phosphate 250 mg-280 mg-160 mg oral powder for reconstitution 2 pkt, Route: PO, Drug Form: PDR/REC, Dosing Weight 113.636, kg, PRN, PRN Abnormal Lab Result, FOR ICU USE ONLY, Start date: 12/12/17 2:17:00 CDT, Duration: 30 day, Stop date: 01/11/18 2:16:00 CDTNotes: (Same as: Phos-NaK) Each 1.5 gm pkt has 250mg phosphorous. Mix w/2.5oz water and stir. No Longer Active 12/12/2017 [facility] potassium phosphate 18 mmol, 6 mL, Route: IVPB, ONCE, Dosing Weight 113.636, kg, Start date: 12/12/17 2:13:00 CDT, Stop date: 12/12/17 2:13:00 CDTNotes: (Same as: K Phosphate.) 1 mMol phoshate has 1.47 mEq potassium Infuse over 4 hours Inactive 12/12/2017 [facility] pantoprazole 80 mg + Sodium Chloride 0.9% IV 100 mL 100 mL, Rate: 10 ml/hr, Infuse over: 10 hr, Route: IVPB, Dosing Weight 113.636 kg, Total Volume: 100, Infuse at 8 mg / hr for 72 hours for GI bleeding, Start date: 12/12/17 1:13:00 CDT, Duration: 72 hr, Stop date: 12/15/17 1:12:00 CDT, 2.38, m2 Inactive 12/12/2017 [facility] Azithromycin 500 mg, Route: IVPB, ONCE, Dosing Weight 113.636, kg, Priority: STAT, Start date: 12/12/17 1:07:00 CDT, Stop date: 12/12/17 1:07:00 CDT, ABX Indication: PneumoniaNotes: (Same As: Zithromax IV) Inactive 12/12/2017 [facility] Ceftriaxone 1 gm, Route: IVPB, Drug form: PDR/INJ, ONCE, Dosing Weight 113.636, kg, Priority: STAT, Start date: 12/12/17 1:07:00 CDT, Stop date: 12/12/17 1:07:00 CDT, ABX Indication: Pneumonia Inactive 12/12/2017 [facility] Hurricaine Route: TOP, ONCE, Drug form: SPRY, Start date: 12/11/17 22:26:00 CDT, Stop date: 12/11/17 22:26:00 CDTNotes: (Same As: Hurricaine) WASTE: F/P - Black; E - Municipal Trash Bin FOR ORAL USE No Longer Active 12/12/2017 [facility] Protonix 40 mg, Route: IVP, Drug form: INJ, ONCE, Dosing Weight 113.636, kg, Priority: STAT, Start date: 12/11/17 22:23:00 CDT, Stop date: 12/11/17 22:23:00 CDTNotes: For IV push reconstitute with 10 ml 0.9% sod ium chloride and push over 2 minutes. (Same as: Protonix) No Longer Active 12/12/2017 [facility] Lidocaine 5 mL, Route: NEB, Drug Form: INJ, Dosing Weight 113.636, kg, ONCE, Start date: 12/11/17 22:21:00 CDT, Stop date: 12/11/17 22:21:00 CDTNotes: (Same as: Xylocaine) Inactive 12/12/2017 [facility] Saline Flush 0.9% 10 mL, Route: IVP, Drug Form: INJ, Dosing Weight 113.636, kg, PRN, PRN Line Flush, Start date: 12/11/17 21:19:00 CDT, Duration: 30 day, Stop date: 01/10/18 21:18:00 CDTNotes: (Same as: BD Posiflush) No Longer Active 12/12/2017 [facility] MethylPREDNISolone Dose Pack 4 mg oral tablet See Instructions, PO, Daily, Use as directed on label., # 1 Pack, 0 Refill(s), Pharmacy: [facility] [id number] Active 12/07/2017 [facility] Methylprednisolone 4 mg, 1 tab, Route: PO, Drug form: TAB, Daily, Dosing Weight 109.091, kg, Start date: 12/07/17 9:00:00 CDT, Duration: 30 day, Stop date: 01/05/18 9:00:00 CDTNotes: (Same as :Medrol) Take with food Inactive 12/07/2017 [facility] Lovenox 40 mg, 0.4 mL, Route: SUB-Q, Drug form: INJ, [id number], Dosing Weight 109.091, kg, Start date: 12/07/17 9:00:00 CDT, Duration: 30 day, Stop date: 01/05/18 9:00:00 CDTNotes: (Same as: Lovenox) Inactive 12/07/2017 [facility] Albuterol 0.833 MG/ML / Ipratropium [place] 0.167 MG/ML Inhalant Solution [DuoNeb] 3 mL, Route: NEB, Drug Form: SOLN, Dosing Weight 113.636, kg, RQID, Start date: 12/07/17 7:00:00 CDT, Duration: 30 day, Stop date: 01/05/18 19:00:00 CDTNotes: (Same as: Duoneb) Inactive 12/07/2017 [facility] Tessalon Perles 100 mg, 1 cap, Route: PO, Drug form: CAP, TID, Dosing Weight 109.091, kg, PRN Cough, Start date: 12/07/17 0:04:00 CDT, Duration: 30 day, Stop date: 01/06/18 0:03:00 CDTNotes: (Same As: Tessalon Perle s) "Do Not Crush" Inactive 12/07/2017 [facility] Levaquin 750 mg, 150 mL, Route: IVPB, Drug form: SOLN, [id number], Dosing Weight 113.636, kg, Start date: 12/07/17 0:00:00 CDT, Duration: 5 day, Stop date: 12/11/17 0:00:00 CDT, ABX Indication: PneumoniaNotes: (Same as:Levaquin) Inactive 12/07/2017 [facility] MethylPREDNISolone Dose Pack 4 mg oral tablet 4 mg, PO, Daily, 0 Refill(s) Inactive 12/07/2017 [facility] NS 1,000 mL 1,000 mL, Rate: 75 ml/hr, Infuse over: 13.3 hr, Route: IV, Dosing Weight 113.636 kg, Total Volume: 1,000, Start date: 12/06/17 23:37:00 CDT, Duration: 30 day, Stop date: 01/05/18 23:36:00 CDT, 2.38, m2 No Longer Active 12/07/2017 [facility] Ondansetron 4 mg, 2 mL, Route: IVP, Drug form: INJ, Q6H, Dosing Weight 113.636, kg, PRN Nausea & Vomiting, Start date: 12/06/17 23:35:00 CDT, Duration: 30 day, Stop date: 01/05/18 23:34:00 CDTNotes: (Same as: [place]) MEDICATION WASTE Product Size: 4 mg Product Wasted: ___ mg No Longer Active 12/07/2017 [facility] Acetaminophen 325 MG / Hydrocodone Bitartrate 5 MG Oral Tablet 1 tab, Route: PO, Drug Form: TAB, Dosing Weight 113.636, kg, Q4H, PRN Pain Score 4-6, Start date: 12/06/17 23:35:00 CDT, Duration: 30 day, Stop date: 01/05/18 23:34:00 CDTNotes: (Same as: [place] 325/5) Do not exceed 4gm/day of acetaminophen. No Longer Active 12/07/2017 [facility] Acetaminophen 650 mg, 2 tab, Route: PO, Drug form: TAB, Q4H, Dosing Weight 113.636, kg, PRN Pain 1-3/Temp > 100.4 F, Start date: 12/06/17 23:35:00 CDT, Duration: 30 day, Stop date: 01/05/18 23:34:00 CDTNotes: Do not exceed 4 gm/day. (Same as: Tylenol) No Longer Active 12/07/2017 [facility] Dexamethasone 10 mg, 2.5 mL, Route: IM, Drug form: INJ, ONCE, Dosing Weight 113.636, kg, Priority: STAT, Start date: 12/06/17 14:10:00 CDT, Stop date: 12/06/17 14:10:00 CDT Inactive 12/06/2017 [facility] Albuterol 0.833 MG/ML / Ipratropium [place] 0.167 MG/ML Inhalant Solution [DuoNeb] 3 ml, Route: NEB, Drug Form: SOLN, Dosing Weight 113.636, kg, PRN, PRN Respiratory Pathway, Start date: 12/06/17 14:09:00 CDT, Duration: 30 day, Stop date: 01/05/18 14:08:00 CDTNotes: (Same as: Duoneb) No Longer Active 12/06/2017 [facility] Levofloxacin 750 MG Oral Tablet [Levaquin] 750 mg=1 tab, PO, Daily, X 5 day, # 5 tab, 0 Refill(s) Active 10/16/2017 [facility] albuterol 90 mcg/inh inhalation aerosol 2 puff, INHALATION, QID, # 17 gm, 0 Refill(s) Active 10/16/2017 [facility] Levofloxacin 750 mg, 150 mL, Route: IVPB, Drug form: SOLN, ONCE, Dosing Weight 113.636, kg, Start date: 10/16/17 11:05:00 CDT, Stop date: 10/16/17 11:05:00 CDT, ABX Indication: PneumoniaNotes: (Same as:Levaquin) Inactive 10/16/2017 [facility] methylPREDNISolone SODium SUCCinate 125 mg, 2 mL, Route: IVP, Drug form: INJ, ONCE, Dosing Weight 113.636, kg, Priority: STAT, Start date: 10/16/17 7:25:00 CDT, Stop date: 10/16/17 7:25:00 CDTNotes: (Same as:Solu- MEDROL, A-Methapred) Inactive 10/16/2017 [facility] Albuterol 0.833 MG/ML / Ipratropium [place] 0.167 MG/ML Inhalant Solution 3 mL, Route: NEB, Drug Form: SOLN, Dosing Weight 113.636, kg, ONCE, STAT, Start date: 10/16/17 7:25:00 CDT, Stop date: 10/16/17 7:25:00 CDTNotes: (Same as: Duoneb) Inactive 10/16/2017 [facility] Saline Flush 0.9% 10 mL, Route: IVP, Drug Form: INJ, Dosing Weight 113.636, kg, PRN, PRN Line Flush, Start date: 10/16/17 7:25:00 CDT, Duration: 30 day, Stop date: 11/15/17 7:24:00 CDTNotes: (Same as: BD Posiflush) Inactive 10/16/2017 [facility] Levofloxacin 500 MG Oral Tablet [Levaquin] 500 mg=1 tab, PO, Q24H, X 7 day, # 7 tab, 0 Refill(s) Active 07/03/2016 [facility] predniSONE 10 mg oral tablet 10 mg=1 tab, PO, Daily, X 30 day, # 30 tab, 0 Refill(s) Active 07/03/2016 [facility] Solu-Medrol 40 mg, 1 mL, Route: IVP, Drug form: INJ, Q8Hnow, Dosing Weight 115, kg, Start date: 07/02/16 6:00:00 LIBRARY SERVICES COORDINATOR, Duration: 30 day, Stop date: 07/31/16 22:00:00 CSTNotes: (Same as:Solu-MEDROL, A-Methapred) No Longer Active 07/02/2016 [facility] Rocephin 1 gm, Route: IVPB, [id number], Dosing Weight 115, kg, Start date: 07/02/16 0:00:00 LIBRARY SERVICES COORDINATOR, Duration: 30 day, Stop date: 07/31/16 0:00:00 CSTNotes: (Same As: Rocephin). Use with 100 mL NS and infuse over 30 m in MEDICATION WASTE Product Size: 1000 mg Product Wasted: ___ mg No Longer Active 07/02/2016 [facility] Azithromycin 500 MG Oral Tablet [Zithromax] 500 mg, 2 tab, Route: PO, Drug form: TAB, [id number], Dosing Weight 115, kg, Start date: 07/02/16 0:00:00 LIBRARY SERVICES COORDINATOR, Duration: 30 day, Stop date: 07/31/16 0:00:00 CSTNotes: Take 1 hour before or 2 hours after meals. (Same As: Zithromax) No Longer Active 07/02/2016 [facility] Albuterol 0.833 MG/ML / Ipratropium [place] 0.167 MG/ML Inhalant Solution [DuoNeb] 3 ml, Route: NEB, Drug Form: SOLN, Dosing Weight 115, kg, PRN, PRN Respiratory Protocol, Start date: 07/01/16 23:37:00 LIBRARY SERVICES COORDINATOR, Duration: 30 day, Stop date: 07/31/16 23:36:00 CSTNotes: (Same as: Duoneb) No Longer Active 07/02/2016 [facility] Levofloxacin 750 mg, 150 mL, Route: IVPB, Drug form: SOLN, ONCE, Dosing Weight 109.091, kg, Priority: STAT, Start date: 07/01/16 21:27:00 LIBRARY SERVICES COORDINATOR, Stop date: 07/01/16 21:27:00 CSTNotes: (Same as:Levaquin) Inactive 07/02/2016 [facility] methylPREDNISolone SODium SUCCinate 125 mg, 2 mL, Route: IVP, Drug form: INJ, ONCE, Dosing Weight 109.091, kg, Priority: STAT, Start date: 07/01/16 21:08:00 LIBRARY SERVICES COORDINATOR, Stop date: 07/01/16 21:08:00 CSTNotes: (Same as:Solu-MEDROL, A-Methapred) Inactive 07/02/2016 [facility] Albuterol 0.83 MG/ML Inhalant Solution 2.49 mg, 3 mL, Route: NEB, Drug form: SOLN, ONCE, Dosing Weight 109.091, kg, Priority: STAT, Start date: 07/01/16 21:08:00 LIBRARY SERVICES COORDINATOR, Stop date: 07/01/16 21:08:00 CSTNotes: SEE RT DOCUMENTATION (Same as: Proventil) Inactive 07/02/2016 [facility] Albuterol 0.833 MG/ML / Ipratropium [place] 0.167 MG/ML Inhalant Solution 3 mL, Route: NEB, Drug Form: SOLN, Dosing Weight 109.091, kg, ONCE, STAT, Start date: 07/01/16 21:08:00 LIBRARY SERVICES COORDINATOR, Stop date: 07/01/16 21:08:00 CSTNotes: (Same as: Duoneb) Inactive 07/02/2016 [facility] Saline Flush 0.9% 10 mL, Route: IVP, Drug Form: INJ, Dosing Weight 109.091, kg, PRN, PRN Line Flush, Start date: 07/01/16 21:08:00 LIBRARY SERVICES COORDINATOR, Duration: 30 day, Stop date: 07/31/16 21:07:00 CSTNotes: (Same as: BD Posiflush) No Longer Active 07/02/2016 [facility] Sodium Chloride 0.154 MEQ/ML Injectable Solution 1,000 mL, 1000 ml/hr, Infuse Over: 1 hr, Route: IV, 1,000, Drug form: INJ, ONCE, Priority: STAT, Dosing Weight 109.091 kg, Start date: 07/01/16 21:08:00 LIBRARY SERVICES COORDINATOR, Duration: 1 doses or times, Stop date: 07/01/16 21:08:00 LIBRARY SERVICES COORDINATOR Inactive 07/02/2016 [facility] Medrol 4 mg oral tablet 4 mg=1 tab, PO, Daily, # 10 tab, 0 Refill(s) No Longer Active 07/02/2016 [facility] Saline Flush 0.9% 10 mL, Route: IVP, Drug Form: INJ, Dosing Weight 115.455, kg, PRN, PRN Line Flush, Start date: 07/01/16 20:09:00 LIBRARY SERVICES COORDINATOR, Duration: 30 day, Stop date: 07/31/16 20:08:00 CSTNotes: (Same as: BD Posiflush) No Longer Active 07/02/2016 [facility] tramadol hydrochloride 50 MG Oral Tablet 50 mg=1 tab, PO, BID, X 15 day, # 30 tab, 0 Refill(s) Active 04/11/2016 [facility] predniSONE 10 mg oral tablet See Special Instructions, PO, Daily, 16 day regimen: 1st week - 40 mg (4 tabs) daily x 4 days, 2nd week - 30 mg (3 tabs) daily x 4 days, 3rd week - 20 mg (2 tabs) daily x 30 days, X 30 day, # 90 tab, 0 Refill(s) Active 04/11/2016 [facility] methylPREDNISolone SODium SUCCinate 125 mg, 2 mL, Route: IVP, Drug form: INJ, ONCE, Dosing Weight 115.455, kg, Priority: STAT, Start date: 04/11/16 14:14:00 CDT, Stop date: 04/11/16 14:14:00 CDTNotes: (Same as:Solu-MEDROL, A-Methapred) Inactive 04/11/2016 [facility] Saline Flush 0.9% 10 mL, Route: IVP, Drug Form: INJ, Dosing Weight 115.455, kg, PRN, PRN Line Flush, Start date: 04/11/16 12:12:00 CDT, Duration: 30 day, Stop date: 05/11/16 11:11:00 CSTNotes: Same as: BD Posiflush Sterile Inactive 04/11/2016 [facility] 24 HR Nicotine 0.583 MG/HR Transdermal Patch =1 patch, TOP, Daily, X 30 day, # 30 patch, 0 Refill(s) Active 03/21/2016 [facility] predniSONE 10 mg oral tablet See Special Instructions, PO, Daily, 16 day regimen: 1st week - 40 mg (4 tabs) daily x 4 days, 2nd week - 30 mg (3 tabs) daily x 4 days, 3rd week - 20 mg (2 tabs) daily x 4days, 4th week - 10 mg (1 tab) daily x 4 days then stop. X16 days, #42 Tabs, X... Active 03/21/2016 [facility] Levofloxacin 500 MG Oral Tablet [Levaquin] 500 mg=1 tab, PO, Q24H, X 7 day, # 7 tab, 0 Refill(s) Active 03/21/2016 [facility] Zosyn + sodium chloride 0.9% 100 ml ADV 100 mL 3.375 gm, Route: IVPB, [id number], Dosing Weight 111.818, kg, CrCl >=20 ml/min infuse over 4 hours, Start date: 03/21/16 0:00:00 CDT, Duration: 30 day, Stop date: 04/19/16 16:00:00 CDTNotes: (Same as: Zosyn) Dosing based on Piperacillin component Inactive 03/21/2016 [facility] Solu-Medrol 20 mg, 0.5 mL, Route: IVP, Drug form: INJ, Q12H, Dosing Weight 111.818, kg, Start date: 03/20/16 21:00:00 CDT, Duration: 30 day, Stop date: 04/19/16 9:00:00 CDTNotes: (Same as:Solu-MEDROL, A-Methapred) No Longer Active 03/21/2016 [facility] Saline Flush 0.9% 10 ml, Route: IVP, Drug Form: INJ, Dosing Weight 112.727, kg, PRN, PRN Line Flush, Start date: 03/20/16 19:56:00 CDT, Duration: 30 day, Stop date: 04/19/16 19:55:00 CDTNotes: (Same as: BD Posiflush) No Longer Active 03/21/2016 [facility] Sodium Chloride 0.154 MEQ/ML Injectable Solution 1,000 mL, Rate: 125 ml/hr, Infuse over: 8 hr, Route: IV, Dosing Weight 112.727 kg, Total Volume: 1,000, Start date: 03/20/16 19:56:00 CDT, Duration: 30 day, Stop date: 04/19/16 19:55:00 CDT No Longer Active 03/21/2016 [facility] Acetaminophen 325 MG / Hydrocodone Bitartrate 5 MG Oral Tablet 2 tab, Route: PO, Drug Form: TAB, Dosing Weight 112.727, kg, Q4H, PRN Pain Score 7-10, Start date: 03/20/16 19:56:00 CDT, Duration: 30 day, Stop date: 04/19/16 19:55:00 CDTNotes: (Same as: [place] 325/5) Do not exceed 4gm/day of acetaminophen. No Longer Active 03/21/2016 [facility] Morphine 2 mg, 1 mL, Route: IVP, Drug form: INJ, Q4H, Dosing Weight 112.727, kg, PRN Pain Score 7-10, Start date: 03/20/16 19:56:00 CDT, Duration: 30 day, Stop date: 04/19/16 19:55:00 CDTNotes: (Same as:MORPhine Sulfate) No Longer Active 03/21/2016 [facility] Zosyn 3.375 gm, Route: IVPB, [id number], Dosing Weight 111.818, kg, CrCl >=20 ml/min infuse over 4 hours, Start date: 03/20/16 18:00:00 CDT, Duration: 30 day, Stop date: 04/19/16 10:00:00 CDTNotes: (Same as: Zosyn) Dosing based on Piperacillin component Inactive 03/20/2016 [facility] Enoxaparin 40 mg, 0.4 mL, Route: SUB-Q, Drug form: INJ, [id number], Dosing Weight 111.818, kg, Start date: 03/20/16 18:00:00 CDT, Duration: 30 day, Stop date: 04/18/16 18:00:00 CDTNotes: (Same as: Lovenox) No Longer Active 03/20/2016 [facility] Tramadol 50 mg, 1 tab, Route: PO, Drug form: TAB, Q6H, Dosing Weight 111.818, kg, PRN Pain Score 1-5, Start date: 03/20/16 17:14:00 CDT, Duration: 30 day, Stop date: 04/19/16 17:13:00 CDTNotes: Not to exceed 400mg/day. (Same As: Ultram) No Longer Active 03/20/2016 [facility] Insulin, Aspart, Human 3 unit, 0.03 mL, Route: SUB-Q, Drug form: SOLN, Bedtime, Dosing Weight 111.818, kg, PRN Blood Glucose Results, Start date: 03/20/16 17:12:00 CDT, Duration: 30 day, Stop date: 04/19/16 17:11:00 CDTNotes: Roll in palms of hands gently; Do not shake vigorously. (Same as: NovoLOG) "single patient use only" WASTE: F/P - Black; E - Municipal Trash Bin Stable for 28 days at room temperature. Expires in days from Date No Longer Active 03/20/2016 [facility] Dextrose 50% Syringe 12.5 gm, 25 mL, Route: IVP, Drug Form: INJ, Dosing Weight 111.818, kg, PRN, PRN Blood Glucose Results, Start date: 03/20/16 17:12:00 CDT, Duration: 30 day, Stop date: 04/19/16 17:11:00 CDT No Longer Active 03/20/2016 [facility] Glucagon 1 mg, Route: IM, Drug form: PDR/INJ, PRN, Dosing Weight 111.818, kg, PRN Blood Glucose Results, Start date: 03/20/16 17:12:00 CDT, Duration: 30 day, Stop date: 04/19/16 17:11:00 CDT No Longer Active 03/20/2016 [facility] Vancomycin 1,000 mg, Route: IVPB, Drug form: INJ, ONCE, Dosing Weight 111.818, kg, Priority: STAT, Start date: 03/20/16 15:43:00 CDT, Stop date: 03/20/16 15:43:00 CDT Inactive 03/20/2016 [facility] Zosyn 3.375 gm, Route: IVPB, ONCE, Dosing Weight 111.818, kg, Priority: STAT, Start date: 03/20/16 15:43:00 CDT, Stop date: 03/20/16 15:43:00 CDT Inactive 03/20/2016 [facility] Tessalon Perles 100 mg, Route: PO, ONCE, Dosing Weight 111.818, kg, Start date: 03/20/16 13:37:00 CDT, Stop date: 03/20/16 13:37:00 CDT Inactive 03/20/2016 [facility] Acetaminophen 325 MG / Hydrocodone Bitartrate 5 MG Oral Tablet 1 tab, Route: PO, Dosing Weight 111.818, kg, ONCE, STAT, Start date: 03/20/16 13:34:00 CDT, Stop date: 03/20/16 13:34:00 CDT Inactive 03/20/2016 [facility] Saline Flush 0.9% 10 mL, Route: IVP, Drug Form: INJ, Dosing Weight 111.818, kg, PRN, PRN Line Flush, Start date: 03/20/16 13:34:00 CDT, Duration: 30 day, Stop date: 04/19/16 13:33:00 CDTNotes: (Same as: BD Posiflush) Inactive 03/20/2016 [facility] Furosemide 40 mg, Route: PO, Drug form: TAB, ONCE, Dosing Weight 115.09, kg, Start date: 02/08/16 12:51:00 CDT, Stop date: 02/08/16 12:51:00 CDT Inactive 02/08/2016 [facility] Lasix 40 mg, 4 mL, Route: IVP, Drug form: INJ, ONCE, Dosing Weight 115.09, kg, Start date: 02/08/16 12:43:00 CDT, Stop date: 02/08/16 12:43:00 CDTNotes: (Same as: Lasix) MEDICATION WASTE Product Size: 40 mg Product Wasted: ___ mg Inactive 02/08/2016 [facility] pneumococcal capsular polysaccharide type 1 vaccine / pneumococcal capsular polysaccharide type 10A vaccine / pneumococcal capsular polysaccharide type 11A vaccine / pneumococcal capsular polysaccharide type 12F vaccine / pneumococcal capsular polysacchar 0.5 mL, Route: IM, Drug Form: INJ, Daily, Start date: 02/08/16 12:00:00 CDT, Stop date: 02/09/16 17:00:00 CDTNotes: (Same as: Pneumovax 23) Refrigerate Inactive 02/08/2016 [facility] Levofloxacin 500 MG Oral Tablet [Levaquin] 500 mg=1 tab, PO, Q24H, X 14 day, # 14 tab, 0 Refill(s) Active 02/08/2016 [facility] Dilaudid 1 mg, 1 mL, Route: IV, Drug form: INJ, Q6H, Dosing Weight 115.09, kg, PRN Pain Score 7-10, Start date: 02/06/16 19:08:00 CDT, Duration: 30 day, Stop date: 03/07/16 19:07:00 CDT No Longer Active 02/07/2016 [facility] Ceftriaxone 1 gm, Route: IVPB, [id number], Dosing Weight 115.909, kg, Priority: Routine, Start date: 02/05/16 5:00:00 CDT, Duration: 30 day, Stop date: 03/05/16 5:00:00 CDTNotes: (Same As: Rocephin). Use with 100 mL NS and infuse over 30 min MEDICATION WASTE Product Size: 1000 mg Product Wasted: ___ mg No Longer Active 02/05/2016 [facility] Vancomycin 1,000 mg, Route: IVPB, [id number], Dosing Weight 115.09, kg, Start date: 02/04/16 20:00:00 CDT, Duration: 30 day, Stop date: 03/04/16 20:00:00 CDTNotes: TIME CRITICAL MEDICATION (Same As: Vancocin) Infusi on rate 2001 mg: infuse over 2.5 hours MEDICATION WASTE Product Size: 1000 mg Product Wasted: ___ mg No Longer Active 02/05/2016 [facility] Zosyn 3.375 gm, Route: IVPB, [id number], Dosing Weight 115.09, kg, CrCl >=20 ml/min infuse over 4 hours, Start date: 02/04/16 20:00:00 CDT, Duration: 30 day, Stop date: 03/05/16 12:00:00 CDTNotes: (Same as: Zosyn) Dosing based on Piperacillin component No Longer Active 02/05/2016 [facility] Enoxaparin 40 mg, 0.4 mL, Route: SUB-Q, Drug form: INJ, [id number], Dosing Weight 115.09, kg, Start date: 02/04/16 11:00:00 CDT, Duration: 30 day, Stop date: 03/04/16 11:00:00 CDTNotes: (Same as: Lovenox) No Longer Active 02/04/2016 [facility] Morphine 2 mg, 1 mL, Route: IVP, Drug form: INJ, Q4H, Dosing Weight 115.09, kg, PRN Pain Score 6-10, Start date: 02/04/16 10:38:00 CDT, Duration: 30 day, Stop date: 03/05/16 10:37:00 CDTNotes: (Same as:MORPhine Sulfate) No Longer Active 02/04/2016 [facility] Tessalon Perles 100 mg, 1 cap, Route: PO, Drug form: CAP, TID, Dosing Weight 115.09, kg, PRN Cough, Start date: 02/04/16 10:36:00 CDT, Duration: 30 day, Stop date: 03/05/16 10:35:00 CDTNotes: (Same As: Tessalon Riley es) "Do Not Crush" No Longer Active 02/04/2016 [facility] Robitussin-AC oral syrup 5 ml, Route: PO, Drug Form: LIQ, Dosing Weight 115.09, kg, Q4H, PRN Cough, Start date: 02/04/16 10:36:00 CDT, Duration: 30 day, Stop date: 03/05/16 10:35:00 CDTNotes: (Same As: Robitussin AC) No Longer Active 02/04/2016 [facility] dextromethorphan-guaiFENesin 10 mg-100 mg/5 mL oral liquid 10 ml, Route: PO, Drug Form: SYRP, Dosing Weight 115.09, kg, Q4H, PRN Cough, Start date: 02/04/16 10:36:00 CDT, Duration: 30 day, Stop date: 03/05/16 10:35:00 CDTNotes: (dextromethorphan-guaifenesin 10-100mg/5ml 10 ml oral SOLN ud) (Same as: Robitussin DM) No Longer Active 02/04/2016 [facility] Tramadol 50 mg, 1 tab, Route: PO, Drug form: TAB, Q6H, Dosing Weight 115.09, kg, PRN Pain Score 4-6, Start date: 02/04/16 10:36:00 CDT, Duration: 30 day, Stop date: 03/05/16 10:35:00 CDTNotes: Not to exceed 4 00mg/day. (Same As: Ultram) No Longer Active 02/04/2016 [facility] Tylenol 650 mg, 2 tab, Route: PO, Drug form: TAB, Q6H, Dosing Weight 115.09, kg, PRN Pain 1-3/Temp > 100.4 F, Start date: 02/04/16 10:36:00 CDT, Duration: 30 day, Stop date: 03/05/16 10:35:00 CDTNotes: Do not exceed 4 gm/day. (Same as: Tylenol) No Longer Active 02/04/2016 [facility] Tramadol 50 mg, PO, Q4-6H, PRN Pain, # 20 tab, 0 Refill(s) Active 02/04/2016 [facility] Azithromycin 500 mg, Route: IVPB, [id number], Dosing Weight 115.909, kg, Priority: Routine, Start date: 02/04/16 7:00:00 CDT, Duration: 5 day, Stop date: 02/08/16 7:00:00 CDTNotes: (Same As: Zithromax IV) No Longer Active 02/04/2016 [facility] Acetaminophen 650 mg, 2 tab, Route: PO, Drug form: TAB, Q4H, Dosing Weight 115.909, kg, PRN Pain Score 1-3, For fever > 100.4. Not to exceed 4 grams in 24 hours, Start date: 02/04/16 6:36:00 CDT, Duration: 30 day, Stop date: 03/05/16 6:35:00 CDTNotes: Do not exceed 4 gm/day. (Same as: Tylenol) Inactive 02/04/2016 [facility] Ceftriaxone 1 gm, Route: IVPB, Drug form: PDR/INJ, ONCE, Dosing Weight 115.909, kg, Priority: STAT, Start date: 02/04/16 5:15:00 CDT, Stop date: 02/04/16 5:15:00 CDT Inactive 02/04/2016 [facility] Azithromycin 500 mg, Route: IVPB, ONCE, Dosing Weight 115.909, kg, Priority: STAT, Start date: 02/04/16 5:15:00 CDT, Stop date: 02/04/16 5:15:00 CDT Inactive 02/04/2016 [facility] Morphine 4 mg, Route: IVP, Drug form: INJ, ONCE, Dosing Weight 115.909, kg, Priority: STAT, Start date: 02/04/16 4:11:00 CDT, Stop date: 02/04/16 4:11:00 CDT Inactive 02/04/2016 [facility] Zofran 4 mg, Route: IVP, Drug form: INJ, ONCE, Dosing Weight 115.909, kg, Priority: STAT, Start date: 02/04/16 4:11:00 CDT, Stop date: 02/04/16 4:11:00 CDT Inactive 02/04/2016 [facility] Morphine 4 mg, Route: IVP, Drug form: INJ, ONCE, Dosing Weight 115.909, kg, Priority: STAT, Start date: 02/04/16 4:01:00 CDT, Stop date: 02/04/16 4:01:00 CDT Inactive 02/04/2016 [facility] Saline Flush 0.9% 10 mL, Route: IVP, Drug Form: INJ, Dosing Weight 115.909, kg, PRN, PRN Line Flush, Start date: 02/03/16 22:25:00 CDT, Duration: 30 day, Stop date: 03/04/16 22:24:00 CDTNotes: (Same as: BD Posiflush) No Longer Active 02/04/2016 [facility] METRONIDazole 500 mg oral tablet 500 mg, 1 tab, PO, Q12H, 14 tab, Substitution Allowed, TAB PO Active Lew 05/16/2011 [facility] azithromycin 1,000 mg, 1 pkt, Route: PO, Drug form: PCKT, ONCE, Priority: STAT, Start date: 05/15/11 16:57:00, Stop date: 05/15/11 16:57:00 PO No Longer Active Lew 05/15/2011 [facility] ceftriaxone 250 mg, Route: IM, Drug form: PDR/INJ, ONCE, Priority: STAT, Start date: 05/15/11 16:57:00, Stop date: 05/15/11 16:57:00 IM No Longer Active Lew 05/15/2011 [facility] Allergies, Adverse Reactions, Alerts Substance Category Reaction Severity Reaction type Status Date Reported Comments Source No Known Drug Allergies Propensity to adverse reactions to drug Active 09/02/2012 [facility] Immunizations Immunization Date Given Site Status Last Updated Comments Source pneumococcal 23-valent vaccine 02/08/2016 Left Deltoid completed [facility], JANEL Liang,[facility] Results Order Name Results Value Reference Range Date Interpretation Comments Source COMPREHENSIVE METABOLIC PANEL(DBIL NOT INCLUDED) <td ID="[id number]">Sodium</td><td>140</td><td>136 - 145 mmol/L</td><td>[facility]</td><td ID="[id number]"/> 140 136 - 145 12/03/2018 [facility] COMPREHENSIVE METABOLIC PANEL(DBIL NOT INCLUDED) <td ID="[id number]">Potassium</td><td>3.9</td><td>3.5 - 5.1 mmol/L</td><td>[facility]</td><td ID="[id number]"/> 3.9 3.5 - 5.1 12/03/2018 [facility] COMPREHENSIVE METABOLIC PANEL(DBIL NOT INCLUDED) <td ID="[id number]">Chloride</td><td>107</td><td>98 - 107 mmol/L</td><td>[facility]</td><td ID="[id number]"/> 107 98 - 107 12/03/2018 [facility] COMPREHENSIVE METABOLIC PANEL(DBIL NOT INCLUDED) CO2 26 21 - 31 12/03/2018 [facility] COMPREHENSIVE METABOLIC PANEL(DBIL NOT INCLUDED) Glucose 102 70 - 110 12/03/2018 [facility] COMPREHENSIVE METABOLIC PANEL(DBIL NOT INCLUDED) Calcium, Total 8.9 8.6 - 10.3 12/03/2018 [facility] COMPREHENSIVE METABOLIC PANEL(DBIL NOT INCLUDED) Urea Nitrogen 10.0 7 - 25 12/03/2018 [facility] COMPREHENSIVE METABOLIC PANEL(DBIL NOT INCLUDED) Creatinine 1.0 0.7 - 1.3 12/03/2018 [facility] COMPREHENSIVE METABOLIC PANEL(DBIL NOT INCLUDED) Alkaline Phosphatase 41 34 - 104 12/03/2018 [facility] COMPREHENSIVE METABOLIC PANEL(DBIL NOT INCLUDED) ALT 16 7 - 52 12/03/2018 [facility] COMPREHENSIVE METABOLIC PANEL(DBIL NOT INCLUDED) AST 18 13 - 39 12/03/2018 [facility] COMPREHENSIVE METABOLIC PANEL(DBIL NOT INCLUDED) <td ID="[id number]">Total Bilirubin</td><td>0.4</td><td>0.2 - 1.2 mg/dL</td><td>[facility]</td><td ID="[id number]"/> 0.4 0.2 - 1.2 12/03/2018 [facility] COMPREHENSIVE METABOLIC PANEL(DBIL NOT INCLUDED) <td ID="[id number]">Total Protein</td><td>6.6</td><td>6.0 - 8.3 g/dL</td><td>[facility]</td><td ID="[id number]"/> 6.6 6 - 8.3 12/03/2018 [facility] COMPREHENSIVE METABOLIC PANEL(DBIL NOT INCLUDED) GFR, Estimated >60 mL/min/1.73 m2 12/03/2018 [facility] METABOLIC PANEL(DBIL NOT INCLUDED) <td ID="[id number]">Albumin</td><td><span style="flagData">3.5</span><span style="flagData"> (L)</span></td><td>4.2 - 5.5 g/dL</td><td>[facility]</td><td ID="[id number]"/> 3.5 4.2 - 5.5 12/03/2018 [facility] COMPREHENSIVE METABOLIC PANEL(DBIL NOT INCLUDED) Anion Gap 7 5 - 16 12/03/2018 [facility] COMPREHENSIVE METABOLIC PANEL(DBIL NOT INCLUDED) Lab Interpretation Abnormal 12/03/2018 [facility] DIFFERENTIAL, MANUAL WBC Corrected 9.8 4.5 - 12 12/03/2018 [facility] DIFFERENTIAL, MANUAL Neutrophil 62.0 34 - 67.9 12/03/2018 [facility] DIFFERENTIAL, MANUAL Lymphocyte 20.0 21.8 - 50 12/03/2018 [facility] DIFFERENTIAL, MANUAL Monocyte 14.0 5.3 - 12 12/03/2018 [facility] DIFFERENTIAL, MANUAL Eosinophil 2.0 0.8 - 5 12/03/2018 [facility] DIFFERENTIAL, MANUAL Basophil 2.0 0.2 - 1.2 12/03/2018 [facility] DIFFERENTIAL, MANUAL Segs + Bands, Abs 6.08 12/03/2018 [facility] DIFFERENTIAL, MANUAL Neutrophil, Abs 6.08 1.78 - 5.36 12/03/2018 [facility] DIFFERENTIAL, MANUAL Lymphocyte, Abs 1.96 1.32 - 3.57 12/03/2018 [facility] DIFFERENTIAL, MANUAL Monocyte, Abs 1.37 0.3 - 0.82 12/03/2018 [facility] DIFFERENTIAL, MANUAL Eosinophil, Abs 0.20 0.04 - 0.54 12/03/2018 [facility] DIFFERENTIAL, MANUAL Basophil, Abs 0.20 0.01 - 0.08 12/03/2018 [facility] DIFFERENTIAL, MANUAL Cells Counted 100 12/03/2018 [facility] DIFFERENTIAL, MANUAL Lab Interpretation Abnormal 12/03/2018 [facility] CBC <td ID="[id number]">WBC</td><td>9.8</td><td>4.5 - 12.0 K/uL</td><td>[facility]</td><td ID="[id number]"/> 9.8 4.5 - 12 12/03/2018 [facility] CBC <td ID="[id number]">RBC</td><td><span style="flagData">4.58</span><span style="flagData"> (L)</span></td><td>4.60 - 6.20 M/uL</td><td>[facility]</td><td ID="[id number]"/> 4.58 4.60 - 6.20 12/03/2018 [facility] CBC <td ID="[id number]">Hemoglobin</td><td><span style="flagData">13.1</span><span style="flagData"> (L)</span></td><td>14.0 - 18.0 g/dL</td><td>[facility]</td><td ID="[id number]"/> 13.1 14 - 18 12/03/2018 [facility] CBC <td ID="[id number]">Hematocrit</td><td>41.1</td><td>40.0 - 54.0 %</td><td>[facility]</td><td ID="[id number]"/> 41.1 40 - 54 12/03/2018 [facility] CBC <td ID="[id number]">MCV</td><td>89.7</td><td>82.0 - 92.0 fL</td><td>[facility]</td><td ID="[id number]"/> 89.7 82 - 92 12/03/2018 [facility] CBC <td ID="[id number]">MCH</td><td>28.6</td><td>27.0 - 31.0 pg</td><td>[facility]</td><td ID="[id number]"/> 28.6 27 - 31 12/03/2018 [facility] CBC <td ID="[id number]">MCHC</td><td><span style="flagData">31.9</span><span style="flagData"> (L)</span></td><td>32.0 - 36.0 g/dL</td><td>[facility]</td><td ID="[id number]"/> 31.9 32 - 36 12/03/2018 [facility] CBC <td ID="[id number]">RDW</td><td><span style="flagData">51.3</span><span style="flagData"> (H)</span></td><td>35.1 - 43.9 fL</td><td>[facility]</td><td ID=& amp;quot;[id number]"/> 51.3 35.1 - 43.9 12/03/2018 [facility] CBC <td ID="[id number]">Platelet</td><td>211</td><td>150 - 400 K/uL</td><td>[facility]</td><td ID="[id number]"/> 211 150 - 400 12/03/2018 [facility] CBC <td ID="[id number]">Mean Platelet Volume</td><td>9.7</td><td>9.4 - 12.4 fL</td><td>[facility]</td><td ID="[id number]"/> 9.7 9.4 - 12.4 12/03/2018 [facility] CBC Lab Interpretation Abnormal 12/03/2018 [facility] QUANTIFERON TB GOLD QuantiFERON Incubation Incubation performed. 11/08/2018 [facility] QUANTIFERON TB GOLD QuantiFERON TB Gold Plus Negative Reference range: Negative 11/08/2018 [facility] QUANTIFERON TB GOLD QuantiFERON Criteria Comment (note) The QuantiFERON-TB Gold Plus result is determined by subtracting the Nil value from either TB antigen (Ag) tube. The mitogen tube serves as a control for the test. 11/08/2018 [facility] QUANTIFERON TB GOLD Quantiferon TB1 0.21 Unit: IU/mL 11/08/2018 [facility] QUANTIFERON TB GOLD Quantiferon TB2 0.31 Unit: IU/mL 11/08/2018 [facility] QUANTIFERON TB GOLD QuantiFERON Nil Value 0.22 Unit: IU/mL 11/08/2018 [facility] QUANTIFERON TB GOLD QuantiFERON Mitogen Value >10.00 Unit: IU/mL 11/08/2018 [facility] SJOGREN'S AB Anti SS/A <0.2 Reference range: 0.0 to 0.9 Unit: AI 11/03/2018 [facility] SJOGREN'S AB Anti SS/B <0.2 Reference range: 0.0 to 0.9 Unit: AI 11/03/2018 [facility] COMPLEMENT C3 Complement C3 141.2 87 - 200 11/02/2018 [facility] COMPLEMENT C4 Complement C4 25.2 19 - 52 11/02/2018 [facility] SANDY SANDY Screen Negative NEG 11/02/2018 [facility] T PROT/CREA RATIO,UR Creatinine, Urine 182.5 20 - 370 11/02/2018 [facility] T PROT/CREA RATIO,UR T Prot, Ur 0.26 11/02/2018 [facility] T PROT/CREA RATIO,UR T Prot/Crea Ratio,Ur 0.14 0.0 - 0.5 11/02/2018 [facility] HEPATITIS PANEL <td ID="[id number]">HCV IgG</td><td>Negative</td><td>NEG</td><td>BT MAIN-STATION 3</td><td ID="[id number]"/> Negative NEG 11/01/2018 [facility] HEPATITIS PANEL <td ID="[id number]">HBsAg</td><td>Negative</td><td>NEG</td><td>BT MAIN-STATION 3</td><td ID="[id number]"/> Negative NEG 11/01/2018 [facility] HEPATITIS PANEL <td ID="[id number]">HAV, IgM</td><td>Negative</td><td>NEG</td><td>BT MAIN-STATION 3</td><td ID="[id number]"/> Negative NEG 11/01/2018 [facility] HEPATITIS PANEL <td ID="[id number]">HBcAb, IgM</td><td>Negative</td><td>NEG</td><td>BT MAIN-STATION 3</td><td ID="[id number]"/> Negative NEG 11/01/2018 [facility] CHEMISTRIES <td ID="[id number]">Color</td><td>Yellow</td><td/><td>BT MAIN-STATION 2</td><td ID="[id number]"/> Yellow 11/01/2018 [facility] UA CHEMISTRIES Clarity Clear 11/01/2018 [facility] CHEMISTRIES <td ID="[id number]">Specific [place]</td><td>1.019</td><td>1.001 - 1.035</td><td>BT MAIN-STATION 2</td><td ID="[id number]"/> 1.019 1.001 - 1.035 11/01/2018 [facility] CHEMISTRIES <td ID="[id number]">pH</td><td>6.0</td><td>5 - 8</td><td>BT MAIN-STATION 2</td><td ID="[id number]"/> 6.0 5 - 8 11/01/2018 [facility] CHEMISTRIES <td ID="[id number]">Protein</td><td><span style="flagData">1+</span><span style="flagData"> (A)</span></td><td>NEG</td><td>BT MAIN-STATION 2</td><td ID=&quot ;[id number]"/> 1+ NEG 11/01/2018 [facility] UA CHEMISTRIES <td ID="[id number]">Glucose</td><td>Negative</td><td>NEG</td><td>BT MAIN-STATION 2</td><td ID="[id number]"/> Negative NEG 11/01/2018 [facility] UA CHEMISTRIES <td ID="[id number]">Ketones</td><td>Negative</td><td>NEG</td><td>BT MAIN-STATION 2</td><td ID="[id number]"/> Negative NEG 11/01/2018 [facility] UA CHEMISTRIES <td ID="[id number]">Bilirubin</td><td>Negative</td><td>NEG</td><td>BT MAIN-STATION 2</td><td ID="[id number]"/> Negative NEG 11/01/2018 [facility] CHEMISTRIES <td ID="[id number]">Nitrate</td><td>Negative</td><td>NEG</td><td>BT MAIN-STATION 2</td><td ID="[id number]"/> Negative NEG 11/01/2018 [facility] UA CHEMISTRIES <td ID="[id number]">Urobilinogen,Semi- Qn</td><td><1.0</td><td>0.2 - 1.0 EU/dL</td><td>BT MAIN-STATION 2</td><td ID="[id number]"/> <1.0 0.2 - 1 11/01/2018 [facility] UA CHEMISTRIES <td ID="[id number]">Leukocyte</td><td>Negative</td><td>NEG</td><td>BT MAIN-STATION 2</td><td ID="[id number]"/> Negative NEG 11/01/2018 [facility] UA CHEMISTRIES Occult Blood 3+ NEG 11/01/2018 [facility] UA CHEMISTRIES RBC 7 0 - 4 11/01/2018 [facility] UA CHEMISTRIES WBC 1 0 - 5 11/01/2018 [facility] UA CHEMISTRIES Epithelial Cell 2 /HPF 11/01/2018 [facility] UA CHEMISTRIES Mucous Present 11/01/2018 [facility] UA CHEMISTRIES Lab Interpretation Abnormal 11/01/2018 [facility] COMPREHENSIVE METABOLIC PANEL(DBIL NOT INCLUDED) <td ID="[id number]">Albumin</td><td><span style="flagData">3.4</span><span style="flagData"> (L)</span></td><td>4.2 - 5.5 g/dL</td><td>[facility]</td><td ID="[id number]"/> 3.4 4.2 - 5.5 11/01/2018 [facility] COMPREHENSIVE METABOLIC PANEL(DBIL NOT INCLUDED) <td ID="[id number]">Calcium</td><td>9.4</td><td>8.6 - 10.3 mg/dL</td><td>[facility]</td><td ID="[id number]"/> 9.4 8.6 - 10.3 11/01/2018 [facility] COMPREHENSIVE METABOLIC PANEL(DBIL NOT INCLUDED) <td ID="[id number]">CO2</td><td>27</td><td>21 - 31 mmol/L</td><td>[facility]</td><td ID="[id number]"/> 27 21 - 31 11/01/2018 [facility] COMPREHENSIVE METABOLIC PANEL(DBIL NOT INCLUDED) <td ID="[id number]">Chloride</td><td>105</td><td>98 - 107 mmol/L</td><td>[place] [address]</td><td ID="[id number]"/> 105 98 - 107 11/01/2018 [facility] COMPREHENSIVE METABOLIC PANEL(DBIL NOT INCLUDED) <td ID="[id number]">Creatinine</td><td>1.00</td><td>0.70 - 1.30 mg/dL</td><td>[place] [address]</td><td ID="[id number]"/> 1.00 0.7 - 1.3 11/01/2018 [facility] COMPREHENSIVE METABOLIC PANEL(DBIL NOT INCLUDED) <td ID="[id number]">Glucose</td><td>88</td><td>70 - 110 mg/dL</td><td>[place] [address]</td><td ID="[id number]"/> 88 70 - 110 11/01/2018 [facility] COMPREHENSIVE METABOLIC PANEL(DBIL NOT INCLUDED) <td ID="[id number]">Alk Phos</td><td>47</td><td>34 - 104 U/L</td><td>[place] [address]</td><td ID="[id number]"/> 47 34 - 104 11/01/2018 [facility] COMPREHENSIVE METABOLIC PANEL(DBIL NOT INCLUDED) <td ID="[id number]">Potassium</td><td>3.6</td><td>3.5 - 5.1 mmol/L</td><td>[place] [address]</td><td ID="[id number]"/> 3.6 3.5 - 5.1 11/01/2018 [facility] COMPREHENSIVE METABOLIC PANEL(DBIL NOT INCLUDED) <td ID="[id number]">Sodium</td><td>140</td><td>136 - 145 mmol/L</td><td>[place] [address]</td><td ID="[id number]"/> 140 136 - 145 11/01/2018 [facility] COMPREHENSIVE METABOLIC PANEL(DBIL NOT INCLUDED) <td ID="[id number]">ALT</td><td>27</td><td>7 - 52 U/L</td><td>[facility]</td><td ID="[id number]"/> 27 7 - 52 11/01/2018 [facility] COMPREHENSIVE METABOLIC PANEL(DBIL NOT INCLUDED) <td ID="[id number]">AST</td><td>18</td><td>13 - 39 U/L</td><td>[place] [address]</td><td ID="[id number]"/> 18 13 - 39 11/01/2018 [facility] COMPREHENSIVE METABOLIC PANEL(DBIL NOT INCLUDED) <td ID="[id number]">Urea Nitrogen</td><td>14</td><td>7 - 25 mg/dL</td><td>[facility]</td><td ID="[id number]"/> 14 7 - 25 11/01/2018 [facility] COMPREHENSIVE METABOLIC PANEL(DBIL NOT INCLUDED) <td ID="[id number]">T Bilirubin</td><td>0.4</td><td>0.2 - 1.2 mg/dL</td><td>[facility]</td><td ID="[id number]"/> 0.4 0.2 - 1.2 11/01/2018 [facility] COMPREHENSIVE METABOLIC PANEL(DBIL NOT INCLUDED) <td ID="[id number]">T Protein</td><td>6.8</td><td>6.0 - 8.3 g/dL</td><td>[facility]</td><td ID="[id number]"/> 6.8 6 - 8.3 11/01/2018 [facility] COMPREHENSIVE METABOLIC PANEL(DBIL NOT INCLUDED) GFR, Estimated >60 mL/min/1.73 m2 11/01/2018 [facility] METABOLIC PANEL(DBIL NOT INCLUDED) GFR, Estim, Afr-Am >60 mL/min/1.73 m2 11/01/2018 [facility] COMPREHENSIVE METABOLIC PANEL(DBIL NOT INCLUDED) Anion Gap 8 11/01/2018 [facility] METABOLIC PANEL(DBIL NOT INCLUDED) Lab Interpretation Abnormal 11/01/2018 [facility] CBC/DIFF <td ID="[id number]">WBC</td><td><span style="flagData">17.6</span><span style="flagData"> (H)</span></td><td>4.5 - 12.0 K/uL</td><td>[place] [address]</td><td ID=&a mp;quot;[id number]"/> 17.6 4.5 - 12 11/01/2018 [facility] CBC/DIFF <td ID="[id number]">RBC</td><td>4.70</td><td>4.60 - 6.20 M/uL</td><td>[place] [address]</td><td ID="[id number]"/> 4.70 4.60 - 6.20 11/01/2018 [facility] CBC/DIFF <td ID="[id number]">Hemoglobin</td><td><span style="flagData">13.4</span><span style="flagData"> (L)</span></td><td>14.0 - 18.0 g/dL</td><td>[place] [address]</td><td ID="[id number]"/> 13.4 14 - 18 11/01/2018 [facility] CBC/DIFF <td ID="[id number]">Hematocrit</td><td>41.7</td><td>40.0 - 54.0 %</td><td>[place] [address]</td><td ID="[id number]"/> 41.7 40 - 54 11/01/2018 [facility] CBC/DIFF <td ID="[id number]">MCV</td><td>89</td><td>82 - 92 fL</td><td>[place] [address]</td><td ID="[id number]"/> 89 82 - 92 11/01/2018 [facility] CBC/DIFF <td ID="[id number]">MCH</td><td>28.5</td><td>27.0 - 31.0 pg</td><td>[place] [address]</td><td ID="[id number]"/> 28.5 27 - 31 11/01/2018 [facility] CBC/DIFF <td ID="[id number]">MCHC</td><td>32.1</td><td>32.0 - 36.0 g/dL</td><td>[place] [address]</td><td ID="[id number]"/> 32.1 32 - 36 11/01/2018 [facility] CBC/DIFF <td ID="[id number]">RDW</td><td><span style="flagData">50.9</span><span style="flagData"> (H)</span></td><td>35.1 - 43.9 fL</td><td>[place] [address]</td><td ID=&am p;quot;[id number]"/> 50.9 35.1 - 43.9 11/01/2018 [facility] CBC/DIFF <td ID="[id number]">Platelets</td><td>247</td><td>150 - 400 K/uL</td><td>[place] [address]</td><td ID="[id number]"/> 247 150 - 400 11/01/2018 [facility] CBC/DIFF <td ID="[id number]">Neutrophils</td><td><span>62.3</span><span style="allIndent"><span style="cellHeader">Comment: </span><span ID="[id number]">Corrected on 11/01 AT 1232: Previously reported as: 64.3</span></span></td><td>34.0 - 67.9 %</td><td>[place] [address]</td><td ID="[id number]"/> 62.3 34 - 67.9 11/01/2018 Corrected on 11/01 AT 1232: Previously reported as: 64.3 [facility] CBC/DIFF <td ID="[id number]">Lymphs</td><td>22.6</td><td>21.8 - 50.0 %</td><td>[place] [address]</td><td ID="[id number]"/> 22.6 21.8 - 50 11/01/2018 [facility] CBC/DIFF <td ID="[id number]">Monocytes</td><td>11.2</td><td>5.3 - 12.0 %</td><td>[place] [address]</td><td ID="[id number]"/> 11.2 5.3 - 12 11/01/2018 [facility] CBC/DIFF <td ID="[id number]">Eos</td><td>1.3</td><td>0.8 - 5.0 %</td><td>[facility]</td><td ID="[id number]"/> 1.3 0.8 - 5 11/01/2018 [facility] CBC/DIFF <td ID="[id number]">Basos</td><td>0.6</td><td>0.2 - 1.2 %</td><td>[facility]</td><td ID="[id number]"/> 0.6 0.2 - 1.2 11/01/2018 [facility] CBC/DIFF Neutrophils (Absolute) 10.96 1.78 - 5.36 11/01/2018 Corrected on 11/01 AT 1232: Previously reported as: 11.31 [facility] CBC/DIFF Lymphs (Absolute) 3.98 1.32 - 3.57 11/01/2018 Corrected on 11/01 AT 1232: Previously reported as: 3.96 [facility] CBC/DIFF Monocytes(Absolute) 1.97 0.3 - 0.82 11/01/2018 Corrected on 11/01 AT 1232: Previously reported as: 1.96 [facility] CBC/DIFF Eos (Absolute) 0.23 0.04 - 0.54 11/01/2018 Corrected on 11/01 AT 1232: Previously reported as: 0.22 [facility] CBC/DIFF Baso (Absolute) 0.11 0.01 - 0.08 11/01/2018 Corrected on 11/01 AT 1232: Previously reported as: 0.10 [facility] CBC/DIFF Atypical Lymph 2 11/01/2018 [facility] CBC/DIFF Lab Interpretation Abnormal 11/01/2018 [facility] CCP IGG ABS CCP Abs IgG/IgA >250 Reference range: 0 to 19 Unit: units (note) Negative 59 07/07/2018 [facility] CCP IGG ABS Lab Interpretation Abnormal 07/07/2018 [facility] RA FACTOR RA Factor 1754 <14 IU/mL 07/05/2018 [facility] RA FACTOR Lab Interpretation Abnormal 07/05/2018 [facility] SED RATE Sed Rate 91 <20 mm/Hr 07/04/2018 [facility] SED RATE Lab Interpretation Abnormal 07/04/2018 [facility] COMPREHENSIVE METABOLIC PANEL(DBIL NOT INCLUDED) Albumin 3.4 4.2 - 5.5 07/04/2018 [facility] COMPREHENSIVE METABOLIC PANEL(DBIL NOT INCLUDED) Calcium 9.1 8.6 - 10.3 07/04/2018 [facility] COMPREHENSIVE METABOLIC PANEL(DBIL NOT INCLUDED) CO2 27 21 - 31 07/04/2018 [facility] COMPREHENSIVE METABOLIC PANEL(DBIL NOT INCLUDED) Chloride 106 98 - 107 07/04/2018 [facility] COMPREHENSIVE METABOLIC PANEL(DBIL NOT INCLUDED) Creatinine 0.80 0.7 - 1.3 07/04/2018 [facility] COMPREHENSIVE METABOLIC PANEL(DBIL NOT INCLUDED) Glucose 89 70 - 110 07/04/2018 [facility] COMPREHENSIVE METABOLIC PANEL(DBIL NOT INCLUDED) Alk Phos 44 34 - 104 07/04/2018 [facility] COMPREHENSIVE METABOLIC PANEL(DBIL NOT INCLUDED) Potassium 4.3 3.5 - 5.1 07/04/2018 [facility] COMPREHENSIVE METABOLIC PANEL(DBIL NOT INCLUDED) Sodium 138 136 - 145 07/04/2018 [facility] COMPREHENSIVE METABOLIC PANEL(DBIL NOT INCLUDED) ALT 14 7 - 52 07/04/2018 [facility] COMPREHENSIVE METABOLIC PANEL(DBIL NOT INCLUDED) AST 14 13 - 39 07/04/2018 [facility] COMPREHENSIVE METABOLIC PANEL(DBIL NOT INCLUDED) Urea Nitrogen 8 7 - 25 07/04/2018 [facility] COMPREHENSIVE METABOLIC PANEL(DBIL NOT INCLUDED) T Bilirubin 0.5 0.2 - 1.2 07/04/2018 [facility] COMPREHENSIVE METABOLIC PANEL(DBIL NOT INCLUDED) T Protein 6.7 6 - 8.3 07/04/2018 [facility] COMPREHENSIVE METABOLIC PANEL(DBIL NOT INCLUDED) GFR, Estimated >60 mL/min/1.73 m2 07/04/2018 [facility] COMPREHENSIVE METABOLIC PANEL(DBIL NOT INCLUDED) GFR, Estim, Afr-Am >60 mL/min/1.73 m2 07/04/2018 [facility] COMPREHENSIVE METABOLIC PANEL(DBIL NOT INCLUDED) Anion Gap 5 07/04/2018 [facility] COMPREHENSIVE METABOLIC PANEL(DBIL NOT INCLUDED) Lab Interpretation Abnormal 07/04/2018 [facility] CRP, HIGH SENS CRP, high sens 14.692 <1.0 07/04/2018 [facility] CRP, HIGH SENS Lab Interpretation Abnormal 07/04/2018 [facility] CBC/DIFF WBC 15.2 4.5 - 12 07/04/2018 [facility] CBC/DIFF RBC 4.87 4.60 - 6.20 07/04/2018 [facility] CBC/DIFF Hemoglobin 12.6 14 - 18 07/04/2018 [facility] CBC/DIFF Hematocrit 42.1 40 - 54 07/04/2018 [facility] CBC/DIFF MCV 86 82 - 92 07/04/2018 [facility] CBC/DIFF MCH 25.9 27 - 31 07/04/2018 [facility] CBC/DIFF MCHC 29.9 32 - 36 07/04/2018 [facility] CBC/DIFF RDW 53.5 35.1 - 43.9 07/04/2018 [facility] CBC/DIFF Platelet 245 150 - 400 07/04/2018 [facility] CBC/DIFF Mean Platelet Volume 9.9 9.4 - 12.4 07/04/2018 [facility] CBC/DIFF Percent NRBC 0.0 07/04/2018 [facility] CBC/DIFF Absolute NRBC 0.00 07/04/2018 [facility] CBC/DIFF Neutrophil 76.0 34 - 67.9 07/04/2018 [facility] CBC/DIFF Lymphocyte 13.0 21.8 - 50 07/04/2018 [facility] CBC/DIFF Monocyte 7.0 5.3 - 12 07/04/2018 [facility] CBC/DIFF Eosinophil 1.0 0.8 - 5 07/04/2018 [facility] CBC/DIFF Basophil 1.0 0.2 - 1.2 07/04/2018 [facility] CBC/DIFF Neutrophil, Abs 11.56 1.78 - 5.36 07/04/2018 [facility] CBC/DIFF Lymphocyte, Abs 1.98 1.32 - 3.57 07/04/2018 [facility] CBC/DIFF Monocyte, Abs 1.06 0.3 - 0.82 07/04/2018 [facility] CBC/DIFF Eosinophil, Abs 0.15 0.04 - 0.54 07/04/2018 [facility] CBC/DIFF Basophil, Abs 0.15 0.01 - 0.08 07/04/2018 [facility] CBC/DIFF Atypical Lymph 2 07/04/2018 [facility] CBC/DIFF Lab Interpretation Abnormal 07/04/2018 [facility] ELECTROLYTES Sodium Lvl 136 135 - 145 01/19/2018 [facility] ELECTROLYTES Calcium Lvl 7.7 8.5 - 10.5 01/19/2018 [facility] ELECTROLYTES Creatinine Lvl 0.72 0.50 - 1.40 01/19/2018 [facility] ELECTROLYTES BUN 9 7 - 22 01/19/2018 [facility] ELECTROLYTES Chloride Lvl 104 95 - 109 01/19/2018 [facility] ELECTROLYTES Potassium Lvl 4.0 3.5 - 5.1 01/19/2018 [facility] ELECTROLYTES CO2 23 24 - 32 01/19/2018 [facility] ELECTROLYTES eGFR 108 01/19/2018 Result Comment: The eGFR is calculated using the CKD-EPI formula. In most young, healthy individuals the eGFR will be >90 mL/min/1.73m2. The eGFR declines with age. An eGFR of 60-89 may be normal in some populations, particularly the elderly, for whom the CKD-EPI formula has not been extensively validated. Use of the eGFR is not recommended in the following populations:

Individuals with unstable creatinine concentrations, including patients and those with serious co-morbid conditions.

Patients with extremes in muscle mass or diet.

The data above are obtained from the National Kidney Disease Education Program (NKDEP) which additionally recommends that when the eGFR is used in patients with extremes of body mass index for purposes of drug dosing, the eGFR should be multiplied by the estimated BMI. [facility] ELECTROLYTES Glucose Lvl 86 70 - 99 01/19/2018 [facility] ELECTROLYTES AGAP 13.0 10.0 - 20.0 01/19/2018 [facility] Monocytes # 2.3 0.0 - 0.8 01/19/2018 [facility] Basophils # 0.1 0.0 - 0.2 01/19/2018 [facility] Eosinophils # 0.2 0.0 - 0.5 01/19/2018 [facility] Lymphocytes 12.6 20.0 - 40.0 01/19/2018 [facility] Basophils 0.7 0.0 - 1.0 01/19/2018 [facility] HEMATOLOGY Eosinophils 1.4 0.0 - 4.0 01/19/2018 [facility] Lymphocytes # 2.2 1.0 - 5.5 01/19/2018 [facility] Neutrophils # 12.6 1.5 - 8.1 01/19/2018 [facility] Monocytes 13.2 2.0 - 12.0 01/19/2018 [facility] Segs 72.1 45.0 - 75.0 01/19/2018 [facility] WBC 17.5 3.7 - 10.4 01/19/2018 [facility] Platelet 336 133 - 450 01/19/2018 [facility] MPV 8.2 7.4 - 10.4 01/19/2018 [facility] MCH 25.9 27.0 - 31.0 01/19/2018 [facility] HEMATOLOGY MCHC 31.0 32.0 - 36.0 01/19/2018 [facility] HEMATOLOGY RDW 17.1 11.5 - 14.5 01/19/2018 [facility] HEMATOLOGY Hgb 10.6 14.0 - 18.0 01/19/2018 [facility] HEMATOLOGY Hct 34.1 42.0 - 54.0 01/19/2018 [facility] HEMATOLOGY MCV 83.3 80.0 - 94.0 01/19/2018 [facility] HEMATOLOGY RBC 4.09 4.70 - 6.10 01/19/2018 [facility] TOXICOLOGY Vanco Tr 11.7 01/16/2018 [facility] TOXICOLOGY Vanco Tr TND 17:30 01/16/2018 [facility] ELECTROLYTES AGAP 11.8 10.0 - 20.0 01/16/2018 [facility] ELECTROLYTES eGFR 110 01/16/2018 Result Comment: The eGFR is calculated using the CKD-EPI formula. In most young, healthy individuals the eGFR will be >90 mL/min/1.73m2. The eGFR declines with age. An eGFR of 60-89 may be normal in some populations, particularly the elderly, for whom the CKD-EPI formula has not been extensively validated. Use of the eGFR is not recommended in the following populations:

Individuals with unstable creatinine concentrations, including patients and those with serious co-morbid conditions.

Patients with extremes in muscle mass or diet.

The data above are obtained from the National Kidney Disease Education Program (NKDEP) which additionally recommends that when the eGFR is used in patients with extremes of body mass index for purposes of drug dosing, the eGFR should be multiplied by the estimated BMI. [facility] ELECTROLYTES BUN 12 7 - 22 01/16/2018 [facility] ELECTROLYTES Sodium Lvl 136 135 - 145 01/16/2018 [facility] ELECTROLYTES Creatinine Lvl 0.69 0.50 - 1.40 01/16/2018 [facility] ELECTROLYTES Calcium Lvl 8.4 8.5 - 10.5 01/16/2018 [facility] ELECTROLYTES Chloride Lvl 100 95 - 109 01/16/2018 [facility] ELECTROLYTES CO2 28 24 - 32 01/16/2018 [facility] ELECTROLYTES Potassium Lvl 3.8 3.5 - 5.1 01/16/2018 [facility] ELECTROLYTES Glucose Lvl 133 70 - 99 01/16/2018 [facility] HEMATOLOGY Basophils 0.7 0.0 - 1.0 01/16/2018 [facility] HEMATOLOGY Eosinophils 2.1 0.0 - 4.0 01/16/2018 [facility] HEMATOLOGY Monocytes 17.1 2.0 - 12.0 01/16/2018 [facility] HEMATOLOGY Lymphocytes 11.0 20.0 - 40.0 01/16/2018 [facility] HEMATOLOGY Monocytes # 3.0 0.0 - 0.8 01/16/2018 [facility] HEMATOLOGY Neutrophils # 11.9 1.5 - 8.1 01/16/2018 [facility] HEMATOLOGY Lymphocytes # 1.9 1.0 - 5.5 01/16/2018 [facility] HEMATOLOGY Segs 69.1 45.0 - 75.0 01/16/2018 [facility] HEMATOLOGY Eosinophils # 0.4 0.0 - 0.5 01/16/2018 [facility] HEMATOLOGY Basophils # 0.1 0.0 - 0.2 01/16/2018 [facility] MCHC 31.3 32.0 - 36.0 01/16/2018 [facility] HEMATOLOGY RDW 17.0 11.5 - 14.5 01/16/2018 [facility] HEMATOLOGY MCV 84.2 80.0 - 94.0 01/16/2018 [facility] MCH 26.3 27.0 - 31.0 01/16/2018 [facility] MPV 9.1 7.4 - 10.4 01/16/2018 [facility] Platelet 245 133 - 450 01/16/2018 [facility] HEMATOLOGY Hct 33.0 42.0 - 54.0 01/16/2018 [facility] RBC 3.91 4.70 - 6.10 01/16/2018 [facility] Hgb 10.3 14.0 - 18.0 01/16/2018 [facility] HEMATOLOGY WBC 17.3 3.7 - 10.4 01/16/2018 [facility] CHEM PANEL Procalcitonin Lvl 0.07 0.00 - 0.10 01/15/2018 [facility] CARDIAC ENZYMES Troponin-I <0.02 0.00 - 0.40 01/15/2018 [facility] CARDIAC ENZYMES Total CK 27 - 01/15/2018 [facility] CARDIAC ENZYMES Troponin-I <0.02 0.00 - 0.40 01/15/2018 [facility] CARDIAC ENZYMES CK MB <1.0 0.5 - 3.6 01/15/2018 [facility] CARDIAC ENZYMES Total CK 28 - 01/15/2018 [facility] CHEM PANEL eGFR 109 01/15/2018 Result Comment: The eGFR is calculated using the CKD-EPI formula. In most young, healthy individuals the eGFR will be >90 mL/min/1.73m2. The eGFR declines with age. An eGFR of 60-89 may be normal in some populations, particularly the elderly, for whom the CKD-EPI formula has not been extensively validated. Use of the eGFR is not recommended in the following populations:

Individuals with unstable creatinine concentrations, including patients and those with serious co-morbid conditions.

Patients with extremes in muscle mass or diet.

The data above are obtained from the National Kidney Disease Education Program (NKDEP) which additionally recommends that when the eGFR is used in patients with extremes of body mass index for purposes of drug dosing, the eGFR should be multiplied by the estimated BMI. [facility] CHEM PANEL Calcium Lvl 8.7 8.5 - 10.5 01/15/2018 [facility] CHEM PANEL Chloride Lvl 100 95 - 109 01/15/2018 [facility] CHEM PANEL CO2 30 24 - 32 01/15/2018 [facility] CHEM PANEL Potassium Lvl 4.2 3.5 - 5.1 01/15/2018 [facility] CHEM PANEL BUN 15 7 - 22 01/15/2018 [facility] CHEM PANEL Creatinine Lvl 0.71 0.50 - 1.40 01/15/2018 [facility] CHEM PANEL Sodium Lvl 135 135 - 145 01/15/2018 [facility] CHEM PANEL Glucose Lvl 148 70 - 99 01/15/2018 [facility] CHEM PANEL AGAP 9.2 10.0 - 20.0 01/15/2018 [facility] HEMATOLOGY Platelet 258 133 - 450 01/15/2018 [facility] HEMATOLOGY RDW 16.5 11.5 - 14.5 01/15/2018 [facility] HEMATOLOGY MCHC 32.0 32.0 - 36.0 01/15/2018 [facility] HEMATOLOGY MPV 8.6 7.4 - 10.4 01/15/2018 [facility] HEMATOLOGY Hct 36.0 42.0 - 54.0 01/15/2018 [facility] RBC 4.31 4.70 - 6.10 01/15/2018 [facility] HEMATOLOGY MCV 83.4 80.0 - 94.0 01/15/2018 [facility] Hgb 11.5 14.0 - 18.0 01/15/2018 [facility] HEMATOLOGY MCH 26.7 27.0 - 31.0 01/15/2018 [facility] HEMATOLOGY WBC 20.6 3.7 - 10.4 01/15/2018 [facility] HEMATOLOGY Basophils # 0.1 0.0 - 0.2 01/15/2018 [facility] HEMATOLOGY Basophils 0.3 0.0 - 1.0 01/15/2018 [facility] HEMATOLOGY Eosinophils 0.5 0.0 - 4.0 01/15/2018 [facility] HEMATOLOGY Monocytes 13.0 2.0 - 12.0 01/15/2018 [facility] HEMATOLOGY Lymphocytes 8.8 20.0 - 40.0 01/15/2018 [facility] HEMATOLOGY Eosinophils # 0.1 0.0 - 0.5 01/15/2018 [facility] HEMATOLOGY Monocytes # 2.7 0.0 - 0.8 01/15/2018 [facility] Neutrophils # 15.9 1.5 - 8.1 01/15/2018 [facility] Lymphocytes # 1.8 1.0 - 5.5 01/15/2018 [facility] Segs 77.4 45.0 - 75.0 01/15/2018 [facility] MEROPENEM:SUSC:PT:ISOLATE:ORDQN:KALPANA Gram Stain Report Gram Stain Performed By: [facility] 01/14/2018 [facility] MEROPENEM:SUSC:PT:ISOLATE:ORDQN:KALPANA Culture: Respiratory w/Gram Stain Many Pseudomonas aeruginosa 01/14/2018 [facility] MEROPENEM:SUSC:PT:ISOLATE:ORDQN:KALPANA Pseudomonas aeruginosa Pseudomonas aeruginosa 01/14/2018 [facility] URINE AND STOOL UA Sq Epi None Seen 01/14/2018 [facility] URINE AND STOOL UA RBC 3 0 - 2 01/14/2018 [facility] URINE AND STOOL UA Bacteria Few /HPF None Seen /HPF 01/14/2018 [facility] URINE AND STOOL UA Amorph Caryn Occasional /HPF None Seen /HPF 01/14/2018 [facility] URINE AND STOOL UA Color Yellow *NA* (01/14/18 9:00 AM) Yellow 01/14/2018 [facility] URINE AND STOOL UA Turbidity Marked *ABN* (01/14/18 9:00 AM) Clear 01/14/2018 [facility] URINE AND STOOL UA Spec Grav 1.024 <=1.030 01/14/2018 [facility] URINE AND STOOL UA pH 7.0 5.0 - 8.0 01/14/2018 [facility] URINE AND STOOL UA Blood Negative (01/14/18 9:00 AM) Negative 01/14/2018 [facility] URINE AND STOOL UA Urobilinogen 4.0 0.1 - 1.0 01/14/2018 [facility] URINE AND STOOL UA Nitrite Negative (01/14/18 9:00 AM) Negative 01/14/2018 [facility] URINE AND STOOL UA Leuk Est Negative (01/14/18 9:00 AM) Negative 01/14/2018 [facility] URINE AND STOOL UA WBC 4 0 - 5 01/14/2018 [facility] URINE AND STOOL UA Protein Negative mg/dL Negative mg/dL 01/14/2018 [facility] URINE AND STOOL UA Glucose Negative mg/dL Negative mg/dL 01/14/2018 [facility] URINE AND STOOL UA Ketones 20 mg/dL Negative mg/dL 01/14/2018 [facility] URINE AND STOOL UA Bili Negative *NA* (01/14/18 9:00 AM) Negative 01/14/2018 [facility] HEMATOLOGY Plt Morph Normal (01/14/18 5:30 AM) 01/14/2018 [facility] RBC Morph Normal (01/14/18 5:30 AM) 01/14/2018 [facility] CHEM PANEL Magnesium Lvl 2.3 1.8 - 2.4 01/13/2018 [facility] CHEM PANEL Phosphorus 3.5 2.5 - 4.5 01/13/2018 [facility] CHEM PANEL Magnesium Lvl 2.5 1.8 - 2.4 01/12/2018 [facility] CHEM PANEL Phosphorus 3.6 2.5 - 4.5 01/12/2018 [facility] CHEM PANEL Magnesium Lvl 2.5 1.8 - 2.4 01/11/2018 [facility] CHEM PANEL Phosphorus 2.8 2.5 - 4.5 01/11/2018 [facility] RBC Morph See Note (01/10/18 3:52 AM) 01/10/2018 [facility] HEMATOLOGY Target Cell slight 01/10/2018 [facility] Polychrom Moderate *ABN* (01/10/18 3:52 AM) None Seen 01/10/2018 [facility] HEMATOLOGY Hypochrom 1+ (01/10/18 3:52 AM) None Seen 01/10/2018 [facility] HEMATOLOGY Plt Morph Normal (01/10/18 3:52 AM) 01/10/2018 [facility] CARDIAC ENZYMES CK MB 2.8 0.5 - 3.6 01/07/2018 [facility] CARDIAC ENZYMES Troponin-I <0.02 0.00 - 0.40 01/07/2018 [facility] CARDIAC ENZYMES Total CK 96 12 - 191 01/07/2018 [facility] CARDIAC ENZYMES CK MB Index 2.9 0.0 - 2.5 01/07/2018 [facility] CHEM PANEL A/G Ratio 0.7 0.7 - 1.6 01/07/2018 [facility] CHEM PANEL Globulin 4.3 2.7 - 4.2 01/07/2018 [facility] CHEM PANEL B/C Ratio 9 6 - 25 01/07/2018 [facility] CHEM PANEL Alk Phos 77 39 - 136 01/07/2018 [facility] CHEM PANEL Bili Total 0.2 0.2 - 1.3 01/07/2018 [facility] CHEM PANEL ALT 16 0 - 65 01/07/2018 [facility] CHEM PANEL AST 24 0 - 37 01/07/2018 [facility] CHEM PANEL Total Protein 7.3 6.4 - 8.4 01/07/2018 [facility] CHEM PANEL Albumin Lvl 3.0 3.5 - 5.0 01/07/2018 [facility] CHEM PANEL Phosphorus 3.6 2.5 - 4.5 12/15/2017 [facility] CHEM PANEL Magnesium Lvl 2.3 1.8 - 2.4 12/15/2017 [facility] CHEM PANEL eGFR 105 12/15/2017 Result Comment: The eGFR is calculated using the CKD-EPI formula. In most young, healthy individuals the eGFR will be >90 mL/min/1.73m2. The eGFR declines with age. An eGFR of 60-89 may be normal in some populations, particularly the elderly, for whom the CKD-EPI formula has not been extensively validated. Use of the eGFR is not recommended in the following populations:

Individuals with unstable creatinine concentrations, including patients and those with serious co-morbid conditions.

Patients with extremes in muscle mass or diet.

The data above are obtained from the National Kidney Disease Education Program (NKDEP) which additionally recommends that when the eGFR is used in patients with extremes of body mass index for purposes of drug dosing, the eGFR should be multiplied by the estimated BMI. [facility] CHEM PANEL BUN 15 7 - 22 12/15/2017 [facility] CHEM PANEL Glucose Lvl 73 70 - 99 12/15/2017 [facility] CHEM PANEL Chloride Lvl 105 95 - 109 12/15/2017 [facility] CHEM PANEL Potassium Lvl 3.7 3.5 - 5.1 12/15/2017 [facility] CHEM PANEL Sodium Lvl 143 135 - 145 12/15/2017 [facility] CHEM PANEL Creatinine Lvl 0.78 0.50 - 1.40 12/15/2017 [facility] CHEM PANEL AGAP 7.7 10.0 - 20.0 12/15/2017 [facility] CHEM PANEL Calcium Lvl 8.1 8.5 - 10.5 12/15/2017 [facility] CHEM PANEL CO2 34 24 - 32 12/15/2017 [facility] HEMATOLOGY MPV 8.3 7.4 - 10.4 12/15/2017 [facility] HEMATOLOGY Platelet 262 133 - 450 12/15/2017 [facility] HEMATOLOGY RDW 14.3 11.5 - 14.5 12/15/2017 [facility] HEMATOLOGY MCHC 33.5 32.0 - 36.0 12/15/2017 [facility] MCH 30.9 27.0 - 31.0 12/15/2017 [facility] HEMATOLOGY MCV 92.2 80.0 - 94.0 12/15/2017 [facility] HEMATOLOGY Hct 25.5 42.0 - 54.0 12/15/2017 [facility] HEMATOLOGY Hgb 8.5 14.0 - 18.0 12/15/2017 [facility] HEMATOLOGY RBC 2.76 4.70 - 6.10 12/15/2017 [facility] HEMATOLOGY WBC 16.1 3.7 - 10.4 12/15/2017 [facility] HEMATOLOGY Eosinophils 0.6 0.0 - 4.0 12/15/2017 [facility] HEMATOLOGY Basophils 0.5 0.0 - 1.0 12/15/2017 [facility] HEMATOLOGY Lymphocytes 24.0 20.0 - 40.0 12/15/2017 [facility] HEMATOLOGY Monocytes 10.3 2.0 - 12.0 12/15/2017 [facility] HEMATOLOGY Segs-Bands # 10.4 1.5 - 8.1 12/15/2017 [facility] HEMATOLOGY Segs 64.6 45.0 - 75.0 12/15/2017 [facility] HEMATOLOGY Monocytes # 1.7 0.0 - 0.8 12/15/2017 [facility] HEMATOLOGY Eosinophils # 0.1 0.0 - 0.5 12/15/2017 [facility] HEMATOLOGY Lymphocytes # 3.9 1.0 - 5.5 12/15/2017 [facility] HEMATOLOGY Basophils # 0.1 0.0 - 0.2 12/15/2017 [facility] CHEM PANEL eGFR 116 12/14/2017 Result Comment: The eGFR is calculated using the CKD-EPI formula. In most young, healthy individuals the eGFR will be >90 mL/min/1.73m2. The eGFR declines with age. An eGFR of 60-89 may be normal in some populations, particularly the elderly, for whom the CKD-EPI formula has not been extensively validated. Use of the eGFR is not recommended in the following populations:

Individuals with unstable creatinine concentrations, including patients and those with serious co-morbid conditions.

Patients with extremes in muscle mass or diet.

The data above are obtained from the National Kidney Disease Education Program (NKDEP) which additionally recommends that when the eGFR is used in patients with extremes of body mass index for purposes of drug dosing, the eGFR should be multiplied by the estimated BMI. [facility] CHEM PANEL Potassium Lvl 4.4 3.5 - 5.1 12/14/2017 [facility] CHEM PANEL Sodium Lvl 143 135 - 145 12/14/2017 [facility] CHEM PANEL Creatinine Lvl 0.60 0.50 - 1.40 12/14/2017 [facility] CHEM PANEL Chloride Lvl 103 95 - 109 12/14/2017 [facility] CHEM PANEL CO2 31 24 - 32 12/14/2017 [facility] CHEM PANEL Calcium Lvl 8.8 8.5 - 10.5 12/14/2017 [facility] CHEM PANEL Glucose Lvl 122 70 - 99 12/14/2017 [facility] CHEM PANEL BUN 15 7 - 22 12/14/2017 [facility] CHEM PANEL AGAP 13.4 10.0 - 20.0 12/14/2017 [facility] CHEM PANEL Phosphorus 2.2 2.5 - 4.5 12/14/2017 [facility] CHEM PANEL Magnesium Lvl 2.1 1.8 - 2.4 12/14/2017 [facility] HEMATOLOGY MPV 8.6 7.4 - 10.4 12/14/2017 [facility] RDW 13.6 11.5 - 14.5 12/14/2017 [facility] Platelet 241 133 - 450 12/14/2017 [facility] MCHC 33.0 32.0 - 36.0 12/14/2017 [facility] Hct 25.6 42.0 - 54.0 12/14/2017 [facility] Hgb 8.5 14.0 - 18.0 12/14/2017 [facility] MCV 90.1 80.0 - 94.0 12/14/2017 [facility] MCH 29.7 27.0 - 31.0 12/14/2017 [facility] WBC 26.1 3.7 - 10.4 12/14/2017 [facility] RBC 2.85 4.70 - 6.10 12/14/2017 [facility] Segs 88.1 45.0 - 75.0 12/14/2017 [facility] Lymphocytes 5.0 20.0 - 40.0 12/14/2017 [facility] Monocytes 6.9 2.0 - 12.0 12/14/2017 [facility] Lymphocytes # 1.3 1.0 - 5.5 12/14/2017 [facility] Monocytes # 1.8 0.0 - 0.8 12/14/2017 [facility] Segs-Bands # 23.0 1.5 - 8.1 12/14/2017 [facility] PANEL eGFR 116 12/13/2017 Result Comment: The eGFR is calculated using the CKD-EPI formula. In most young, healthy individuals the eGFR will be >90 mL/min/1.73m2. The eGFR declines with age. An eGFR of 60-89 may be normal in some populations, particularly the elderly, for whom the CKD-EPI formula has not been extensively validated. Use of the eGFR is not recommended in the following populations:

Individuals with unstable creatinine concentrations, including patients and those with serious co-morbid conditions.

Patients with extremes in muscle mass or diet.

The data above are obtained from the National Kidney Disease Education Program (NKDEP) which additionally recommends that when the eGFR is used in patients with extremes of body mass index for purposes of drug dosing, the eGFR should be multiplied by the estimated BMI. [facility] CHEM PANEL Calcium Lvl 8.4 8.5 - 10.5 12/13/2017 [facility] CHEM PANEL Glucose Lvl 144 70 - 99 12/13/2017 [facility] CHEM PANEL Sodium Lvl 136 135 - 145 12/13/2017 [facility] CHEM PANEL Creatinine Lvl 0.60 0.50 - 1.40 12/13/2017 [facility] CHEM PANEL BUN 13 7 - 22 12/13/2017 [facility] CHEM PANEL Chloride Lvl 101 95 - 109 12/13/2017 [facility] CHEM PANEL Potassium Lvl 4.8 3.5 - 5.1 12/13/2017 [facility] CHEM PANEL CO2 31 24 - 32 12/13/2017 [facility] CHEM PANEL AGAP 8.8 10.0 - 20.0 12/13/2017 [facility] CHEM PANEL Phosphorus 3.8 2.5 - 4.5 12/13/2017 [facility] CHEM PANEL Magnesium Lvl 1.9 1.8 - 2.4 12/13/2017 [facility] HEMATOLOGY Lymphocytes 3.6 20.0 - 40.0 12/13/2017 [facility] HEMATOLOGY Monocytes 1.7 2.0 - 12.0 12/13/2017 [facility] HEMATOLOGY Segs 94.5 45.0 - 75.0 12/13/2017 [facility] HEMATOLOGY Plt Morph Normal (12/13/17 4:42 AM) 12/13/2017 [facility] HEMATOLOGY Segs-Bands # 19.8 1.5 - 8.1 12/13/2017 [facility] HEMATOLOGY Basophils 0.2 0.0 - 1.0 12/13/2017 [facility] HEMATOLOGY Monocytes # 0.4 0.0 - 0.8 12/13/2017 [facility] Lymphocytes # 0.8 1.0 - 5.5 12/13/2017 [facility] RBC Morph Normal (12/13/17 4:42 AM) 12/13/2017 [facility] Hgb 10.0 14.0 - 18.0 12/13/2017 [facility] WBC 20.9 3.7 - 10.4 12/13/2017 [facility] MCV 91.4 80.0 - 94.0 12/13/2017 [facility] RBC 3.27 4.70 - 6.10 12/13/2017 [facility] Hct 29.9 42.0 - 54.0 12/13/2017 [facility] MPV 9.1 7.4 - 10.4 12/13/2017 [facility] RDW 14.0 11.5 - 14.5 12/13/2017 [facility] Platelet 215 133 - 450 12/13/2017 [facility] MCHC 33.7 32.0 - 36.0 12/13/2017 [facility] HEMATOLOGY MCH 30.7 27.0 - 31.0 12/13/2017 [facility] HEMATOLOGY PTT 30.7 22.9 - 35.8 12/12/2017 [facility] HEMATOLOGY INR 1.08 0.85 - 1.17 12/12/2017 [facility] HEMATOLOGY PT 14.0 12.0 - 14.7 12/12/2017 [facility] URINE AND STOOL Occult Bld Stl Positive 1 *ABN* (12/11/17 10:50 PM) Negative 12/12/2017 Result Comment: corrective action called to Marah Eagle RN 12/11/2017 23:14 MS [facility] BLOOD BANK RESULTS ABO/Rh B POS 12/12/2017 [facility] BLOOD BANK RESULTS Antibody Scrn Negative (12/11/17 10:43 PM) 12/12/2017 [facility] CARDIAC ENZYMES CK MB Index 3.7 0.0 - 2.5 12/12/2017 [facility] CARDIAC ENZYMES BNP 5 <=100 pg/mL 12/12/2017 [facility] CARDIAC ENZYMES Total CK 46 12 - 191 12/12/2017 [facility] CARDIAC ENZYMES CK MB 1.7 0.5 - 3.6 12/12/2017 [facility] CARDIAC ENZYMES Troponin-I <0.02 0.00 - 0.40 12/12/2017 [facility] CHEM PANEL Total Protein 5.8 6.4 - 8.4 12/12/2017 [facility] CHEM PANEL Albumin Lvl 2.4 3.5 - 5.0 12/12/2017 [facility] CHEM PANEL A/G Ratio 0.7 0.7 - 1.6 12/12/2017 [facility] CHEM PANEL Globulin 3.4 2.7 - 4.2 12/12/2017 [facility] CHEM PANEL Alk Phos 39 39 - 136 12/12/2017 [facility] CHEM PANEL Bili Total 0.4 0.2 - 1.3 12/12/2017 [facility] CHEM PANEL B/C Ratio 47 6 - 25 12/12/2017 [facility] CHEM PANEL ALT 22 0 - 65 12/12/2017 [facility] CHEM PANEL AST 6 0 - 37 12/12/2017 [facility] HEMATOLOGY Basophils # 0.2 0.0 - 0.2 12/12/2017 [facility] HEMATOLOGY Eosinophils # 0.1 0.0 - 0.5 12/12/2017 [facility] HEMATOLOGY Basophils 0.8 0.0 - 1.0 12/12/2017 [facility] HEMATOLOGY Eosinophils 0.5 0.0 - 4.0 12/12/2017 [facility] HEMATOLOGY RBC Morph Normal (12/11/17 10:43 PM) 12/12/2017 [facility] HEMATOLOGY Plt Morph Normal (12/11/17 10:43 PM) 12/12/2017 [facility] CHEM PANEL eGFR 91 12/07/2017 Result Comment: The eGFR is calculated using the CKD-EPI formula. In most young, healthy individuals the eGFR will be >90 mL/min/1.73m2. The eGFR declines with age. An eGFR of 60-89 may be normal in some populations, particularly the elderly, for whom the CKD-EPI formula has not been extensively validated. Use of the eGFR is not recommended in the following populations:

Individuals with unstable creatinine concentrations, including patients and those with serious co-morbid conditions.

Patients with extremes in muscle mass or diet.

The data above are obtained from the National Kidney Disease Education Program (NKDEP) which additionally recommends that when the eGFR is used in patients with extremes of body mass index for purposes of drug dosing, the eGFR should be multiplied by the estimated BMI. [facility] CHEM PANEL Creatinine Lvl 0.96 0.50 - 1.40 12/07/2017 [facility] CHEM PANEL Sodium Lvl 141 135 - 145 12/07/2017 [facility] CHEM PANEL BUN 8 7 - 22 12/07/2017 [facility] CHEM PANEL Glucose Lvl 200 70 - 99 12/07/2017 [facility] CHEM PANEL AGAP 12.5 10.0 - 20.0 12/07/2017 [facility] CHEM PANEL Calcium Lvl 8.9 8.5 - 10.5 12/07/2017 [facility] CHEM PANEL CO2 28 24 - 32 12/07/2017 [facility] CHEM PANEL Chloride Lvl 105 95 - 109 12/07/2017 [facility] CHEM PANEL Potassium Lvl 4.5 3.5 - 5.1 12/07/2017 [facility] HEMATOLOGY Basophils # 0.1 0.0 - 0.2 12/07/2017 [facility] HEMATOLOGY Lymphocytes # 0.9 1.0 - 5.5 12/07/2017 [facility] HEMATOLOGY Basophils 0.8 0.0 - 1.0 12/07/2017 [facility] Monocytes # 0.1 0.0 - 0.8 12/07/2017 [facility] HEMATOLOGY Segs-Bands # 11.0 1.5 - 8.1 12/07/2017 [facility] HEMATOLOGY Monocytes 1.0 2.0 - 12.0 12/07/2017 [facility] HEMATOLOGY Lymphocytes 7.7 20.0 - 40.0 12/07/2017 [facility] HEMATOLOGY Segs 90.5 45.0 - 75.0 12/07/2017 [facility] HEMATOLOGY PTT 26.8 22.9 - 35.8 12/07/2017 [facility] HEMATOLOGY PT 13.7 12.0 - 14.7 12/07/2017 [facility] HEMATOLOGY INR 1.05 0.85 - 1.17 12/07/2017 [facility] MCV 92.7 80.0 - 94.0 12/07/2017 [facility] Hct 48.5 42.0 - 54.0 12/07/2017 [facility] MCH 30.7 27.0 - 31.0 12/07/2017 [facility] WBC 12.2 3.7 - 10.4 12/07/2017 [facility] Hgb 16.1 14.0 - 18.0 12/07/2017 [facility] RBC 5.24 4.70 - 6.10 12/07/2017 [facility] MPV 8.4 7.4 - 10.4 12/07/2017 [facility] RDW 14.9 11.5 - 14.5 12/07/2017 [facility] MCHC 33.1 32.0 - 36.0 12/07/2017 [facility] Platelet 221 133 - 450 12/07/2017 [facility] CARDIAC ENZYMES CK MB Index 3.0 0.0 - 2.5 12/07/2017 [facility] CARDIAC ENZYMES Total CK 77 12 - 191 12/07/2017 [facility] CARDIAC ENZYMES BNP 25 <=100 pg/mL 12/07/2017 [facility] CARDIAC ENZYMES CK MB 2.3 0.5 - 3.6 12/07/2017 [facility] CARDIAC ENZYMES Troponin-I <0.02 0.00 - 0.40 12/07/2017 [facility] CHEM PANEL eGFR 101 12/07/2017 Result Comment: The eGFR is calculated using the CKD-EPI formula. In most young, healthy individuals the eGFR will be >90 mL/min/1.73m2. The eGFR declines with age. An eGFR of 60-89 may be normal in some populations, particularly the elderly, for whom the CKD-EPI formula has not been extensively validated. Use of the eGFR is not recommended in the following populations:

Individuals with unstable creatinine concentrations, including patients and those with serious co-morbid conditions.

Patients with extremes in muscle mass or diet.

The data above are obtained from the National Kidney Disease Education Program (NKDEP) which additionally recommends that when the eGFR is used in patients with extremes of body mass index for purposes of drug dosing, the eGFR should be multiplied by the estimated BMI. [facility] CHEM PANEL A/G Ratio 0.7 0.7 - 1.6 12/07/2017 [facility] CHEM PANEL B/C Ratio 11 6 - 25 12/07/2017 [facility] CHEM PANEL Globulin 4.1 2.7 - 4.2 12/07/2017 [facility] CHEM PANEL Bili Total 0.3 0.2 - 1.3 12/07/2017 [facility] CHEM PANEL AGAP 7.7 10.0 - 20.0 12/07/2017 [facility] CHEM PANEL Alk Phos 55 39 - 136 12/07/2017 [facility] CHEM PANEL ALT 26 0 - 65 12/07/2017 [facility] CHEM PANEL AST 19 0 - 37 12/07/2017 [facility] CHEM PANEL Calcium Lvl 8.8 8.5 - 10.5 12/07/2017 [facility] CHEM PANEL Total Protein 7.1 6.4 - 8.4 12/07/2017 [facility] CHEM PANEL Albumin Lvl 3.0 3.5 - 5.0 12/07/2017 [facility] CHEM PANEL Chloride Lvl 103 95 - 109 12/07/2017 [facility] CHEM PANEL CO2 32 24 - 32 12/07/2017 [facility] CHEM PANEL Potassium Lvl 3.7 3.5 - 5.1 12/07/2017 [facility] CHEM PANEL Sodium Lvl 139 135 - 145 12/07/2017 [facility] CHEM PANEL Creatinine Lvl 0.85 0.50 - 1.40 12/07/2017 [facility] CHEM PANEL BUN 9 7 - 22 12/07/2017 [facility] CHEM PANEL Glucose Lvl 91 70 - 99 12/07/2017 [facility] HEMATOLOGY Segs 62.3 45.0 - 75.0 12/07/2017 [facility] HEMATOLOGY Eosinophils 1.2 0.0 - 4.0 12/07/2017 [facility] HEMATOLOGY Monocytes 9.9 2.0 - 12.0 12/07/2017 [facility] HEMATOLOGY Segs-Bands # 8.1 1.5 - 8.1 12/07/2017 [facility] HEMATOLOGY Lymphocytes # 3.3 1.0 - 5.5 12/07/2017 [facility] HEMATOLOGY Basophils 1.4 0.0 - 1.0 12/07/2017 [facility] HEMATOLOGY Monocytes # 1.3 0.0 - 0.8 12/07/2017 [facility] HEMATOLOGY Eosinophils # 0.2 0.0 - 0.5 12/07/2017 [facility] HEMATOLOGY Basophils # 0.2 0.0 - 0.2 12/07/2017 [facility] HEMATOLOGY Lymphocytes 25.2 20.0 - 40.0 12/07/2017 [facility] HEMATOLOGY INR 0.97 0.85 - 1.17 12/07/2017 [facility] HEMATOLOGY PT 12.9 12.0 - 14.7 12/07/2017 [facility] PTT 30.5 22.9 - 35.8 12/07/2017 [facility] MPV 8.7 7.4 - 10.4 12/07/2017 [facility] Hgb 15.6 14.0 - 18.0 12/07/2017 [facility] RBC 5.13 4.70 - 6.10 12/07/2017 [facility] Hct 46.9 42.0 - 54.0 12/07/2017 [facility] MCV 91.5 80.0 - 94.0 12/07/2017 [facility] MCH 30.4 27.0 - 31.0 12/07/2017 [facility] MCHC 33.2 32.0 - 36.0 12/07/2017 [facility] RDW 14.6 11.5 - 14.5 12/07/2017 [facility] Platelet 223 133 - 450 12/07/2017 [facility] WBC 13.0 3.7 - 10.4 12/07/2017 [facility] VIRAL - SEROLOGY Influ A Negative (12/06/17 2:43 PM) Negative 12/06/2017 [facility] VIRAL - SEROLOGY Influ B Negative (12/06/17 2:43 PM) Negative 12/06/2017 [facility] CHEM PANEL Lactic Acid Lvl 0.7 0.5 - 2.2 10/16/2017 [facility] CARDIAC ENZYMES Total CK 64 12 - 191 10/16/2017 [facility] CARDIAC ENZYMES BNP 20 <=100 pg/mL 10/16/2017 [facility] CARDIAC ENZYMES Troponin-I <0.02 0.00 - 0.40 10/16/2017 [facility] CARDIAC ENZYMES CK MB 2.5 0.5 - 3.6 10/16/2017 [facility] CARDIAC ENZYMES CK MB Index 3.9 0.0 - 2.5 10/16/2017 [facility] CHEM PANEL eGFR 89 10/16/2017 Result Comment: The eGFR is calculated using the CKD-EPI formula. In most young, healthy individuals the eGFR will be >90 mL/min/1.73m2. The eGFR declines with age. An eGFR of 60-89 may be normal in some populations, particularly the elderly, for whom the CKD-EPI formula has not been extensively validated. Use of the eGFR is not recommended in the following populations:

Individuals with unstable creatinine concentrations, including patients and those with serious co-morbid conditions.

Patients with extremes in muscle mass or diet.

The data above are obtained from the National Kidney Disease Education Program (NKDEP) which additionally recommends that when the eGFR is used in patients with extremes of body mass index for purposes of drug dosing, the eGFR should be multiplied by the estimated BMI. [facility] CHEM PANEL AGAP 11.0 10.0 - 20.0 10/16/2017 [facility] CHEM PANEL Calcium Lvl 8.5 8.5 - 10.5 10/16/2017 [facility] CHEM PANEL CO2 27 24 - 32 10/16/2017 [facility] CHEM PANEL BUN 10 7 - 22 10/16/2017 [facility] CHEM PANEL Glucose Lvl 216 70 - 99 10/16/2017 [facility] CHEM PANEL Chloride Lvl 104 95 - 109 10/16/2017 [facility] CHEM PANEL Potassium Lvl 4.0 3.5 - 5.1 10/16/2017 [facility] CHEM PANEL Sodium Lvl 138 135 - 145 10/16/2017 [facility] CHEM PANEL Creatinine Lvl 0.98 0.50 - 1.40 10/16/2017 [facility] HEMATOLOGY PTT 31.3 22.9 - 35.8 10/16/2017 [facility] HEMATOLOGY MPV 8.9 7.4 - 10.4 10/16/2017 [facility] HEMATOLOGY Platelet 230 133 - 450 10/16/2017 [facility] HEMATOLOGY MCHC 33.3 32.0 - 36.0 10/16/2017 [facility] HEMATOLOGY RDW 14.0 11.5 - 14.5 10/16/2017 [facility] MCH 31.0 27.0 - 31.0 10/16/2017 [facility] [place] HEMATOLOGY MCV 93.1 80.0 - 94.0 10/16/2017 [facility] Hct 46.7 42.0 - 54.0 10/16/2017 [facility] RBC 5.02 4.70 - 6.10 10/16/2017 [facility] Hgb 15.6 14.0 - 18.0 10/16/2017 [facility] WBC 14.4 3.7 - 10.4 10/16/2017 [facility] [place] HEMATOLOGY PT 13.8 12.0 - 14.7 10/16/2017 [facility] INR 1.06 0.85 - 1.17 10/16/2017 [facility] Segs-Bands # 11.9 1.5 - 8.1 10/16/2017 [facility] Lymphocytes # 1.6 1.0 - 5.5 10/16/2017 [facility] Basophils 0.9 0.0 - 1.0 10/16/2017 [facility] Monocytes # 0.7 0.0 - 0.8 10/16/2017 [facility] Basophils # 0.1 0.0 - 0.2 10/16/2017 [facility] Monocytes 5.2 2.0 - 12.0 10/16/2017 [facility] Lymphocytes 11.0 20.0 - 40.0 10/16/2017 [facility] [place] HEMATOLOGY Segs 82.9 45.0 - 75.0 10/16/2017 [facility] [place] ELECTROLYTES AGAP 12.4 10.0 - 20.0 07/04/2016 [facility] [place] ELECTROLYTES eGFR 88 07/04/2016 Result Comment: The eGFR is calculated using the CKD-EPI formula. In most young, healthy individuals the eGFR will be >90 mL/min/1.73m2. The eGFR declines with age. An eGFR of 60-89 may be normal in some populations, particularly the elderly, for whom the CKD-EPI formula has not been extensively validated. Use of the eGFR is not recommended in the following populations:

Individuals with unstable creatinine concentrations, including patients and those with serious co-morbid conditions.

Patients with extremes in muscle mass or diet.

The data above are obtained from the National Kidney Disease Education Program (NKDEP) which additionally recommends that when the eGFR is used in patients with extremes of body mass index for purposes of drug dosing, the eGFR should be multiplied by the estimated BMI. [facility] [place] ELECTROLYTES Chloride Lvl 106 95 - 109 07/04/2016 [facility] [place] ELECTROLYTES CO2 26 24 - 32 07/04/2016 [facility] [place] ELECTROLYTES Calcium Lvl 8.5 8.5 - 10.5 07/04/2016 [facility] [place] ELECTROLYTES Potassium Lvl 4.4 3.5 - 5.1 07/04/2016 [facility] [place] ELECTROLYTES Sodium Lvl 140 135 - 145 07/04/2016 [facility] [place] ELECTROLYTES Glucose Lvl 129 70 - 99 07/04/2016 [facility] [place] ELECTROLYTES Creatinine Lvl 1.00 0.50 - 1.40 07/04/2016 [facility] [place] ELECTROLYTES BUN 17 7 - 22 07/04/2016 [facility] [place] HEMATOLOGY Platelet 181 133 - 450 07/04/2016 [facility] [place] HEMATOLOGY MCHC 32.8 32.0 - 36.0 07/04/2016 [facility] [place] HEMATOLOGY RDW 14.3 11.5 - 14.5 07/04/2016 [facility] [place] HEMATOLOGY MCH 29.5 27.0 - 31.0 07/04/2016 [facility] [place] HEMATOLOGY Hgb 14.4 14.0 - 18.0 07/04/2016 [facility] [place] HEMATOLOGY WBC 26.0 3.7 - 10.4 07/04/2016 [facility] [place] HEMATOLOGY RBC 4.89 4.70 - 6.10 07/04/2016 [facility] [place] HEMATOLOGY MPV 8.1 7.4 - 10.4 07/04/2016 [facility] [place] HEMATOLOGY Hct 44.0 42.0 - 54.0 07/04/2016 [facility] [place] HEMATOLOGY MCV 89.9 80.0 - 94.0 07/04/2016 [facility] [place] CHEM PANEL Lactic Acid Lvl 1.1 0.5 - 2.2 07/02/2016 [facility] [place] CARDIAC ENZYMES CK MB Index 1.6 0.0 - 2.5 07/02/2016 [facility] [place] CARDIAC ENZYMES CK MB 2.8 0.5 - 3.6 07/02/2016 [facility] [place] CARDIAC ENZYMES Troponin-I <0.02 0.00 - 0.40 07/02/2016 [facility] [place] CARDIAC ENZYMES Total CK 172 12 - 191 07/02/2016 [facility] [place] CARDIAC ENZYMES BNP 14 <=100 pg/mL 07/02/2016 [facility] [place] CHEM PANEL AST 32 0 - 37 07/02/2016 [facility] [place] CHEM PANEL Alk Phos 83 39 - 136 07/02/2016 [facility] CHEM PANEL Bili Total 0.4 0.2 - 1.3 07/02/2016 [facility] CHEM PANEL ALT 21 0 - 65 07/02/2016 [facility] CHEM PANEL eGFR 105 07/02/2016 Result Comment: The eGFR is calculated using the CKD-EPI formula. In most young, healthy individuals the eGFR will be >90 mL/min/1.73m2. The eGFR declines with age. An eGFR of 60-89 may be normal in some populations, particularly the elderly, for whom the CKD-EPI formula has not been extensively validated. Use of the eGFR is not recommended in the following populations:

Individuals with unstable creatinine concentrations, including patients and those with serious co-morbid conditions.

Patients with extremes in muscle mass or diet.

The data above are obtained from the National Kidney Disease Education Program (NKDEP) which additionally recommends that when the eGFR is used in patients with extremes of body mass index for purposes of drug dosing, the eGFR should be multiplied by the estimated BMI. [facility] [place] CHEM PANEL Total Protein 8.1 6.4 - 8.4 07/02/2016 [facility] [place] CHEM PANEL Albumin Lvl 3.1 3.5 - 5.0 07/02/2016 [facility] [place] CHEM PANEL Globulin 5.0 2.7 - 4.2 07/02/2016 [facility] [place] CHEM PANEL A/G Ratio 0.6 0.7 - 1.6 07/02/2016 [facility] CHEM PANEL Calcium Lvl 8.9 8.5 - 10.5 07/02/2016 [facility] CHEM PANEL B/C Ratio 10 6 - 25 07/02/2016 [facility] CHEM PANEL AGAP 12.1 10.0 - 20.0 07/02/2016 [facility] [place] CHEM PANEL Creatinine Lvl 0.79 0.50 - 1.40 07/02/2016 [facility] CHEM PANEL Glucose Lvl 90 70 - 99 07/02/2016 [facility] CHEM PANEL BUN 8 7 - 22 07/02/2016 [facility] CHEM PANEL Chloride Lvl 101 95 - 109 07/02/2016 [facility] CHEM PANEL CO2 27 24 - 32 07/02/2016 [facility] CHEM PANEL Sodium Lvl 136 135 - 145 07/02/2016 [facility] CHEM PANEL Potassium Lvl 4.1 3.5 - 5.1 07/02/2016 Result Comment: Slight hemolysis present. [facility] [place] HEMATOLOGY Segs-Bands # 10.5 1.5 - 8.1 07/02/2016 [facility] HEMATOLOGY Basophils 1.0 0.0 - 1.0 07/02/2016 [facility] HEMATOLOGY Eosinophils 0.6 0.0 - 4.0 07/02/2016 [facility] HEMATOLOGY Lymphocytes 12.3 20.0 - 40.0 07/02/2016 [facility] HEMATOLOGY Monocytes 10.4 2.0 - 12.0 07/02/2016 [facility] HEMATOLOGY Basophils # 0.1 0.0 - 0.2 07/02/2016 [facility] HEMATOLOGY Monocytes # 1.4 0.0 - 0.8 07/02/2016 [facility] HEMATOLOGY Eosinophils # 0.1 0.0 - 0.5 07/02/2016 [facility] HEMATOLOGY Lymphocytes # 1.7 1.0 - 5.5 07/02/2016 [facility] [place] HEMATOLOGY Segs 75.7 45.0 - 75.0 07/02/2016 [facility] [place] HEMATOLOGY MCHC 33.7 32.0 - 36.0 07/02/2016 [facility] [place] HEMATOLOGY RDW 13.9 11.5 - 14.5 07/02/2016 [facility] [place] HEMATOLOGY Platelet 194 133 - 450 07/02/2016 [facility] [place] HEMATOLOGY Hct 48.0 42.0 - 54.0 07/02/2016 [facility] [place] HEMATOLOGY Hgb 16.2 14.0 - 18.0 07/02/2016 [facility] [place] HEMATOLOGY RBC 5.40 4.70 - 6.10 07/02/2016 [facility] [place] HEMATOLOGY MCH 30.0 27.0 - 31.0 07/02/2016 [facility] [place] HEMATOLOGY MCV 88.9 80.0 - 94.0 07/02/2016 [facility] [place] HEMATOLOGY MPV 8.1 7.4 - 10.4 07/02/2016 [facility] [place] HEMATOLOGY WBC 13.9 3.7 - 10.4 07/02/2016 [facility] [place] CARDIAC ENZYMES CK MB 2.2 0.5 - 3.6 04/11/2016 [facility] [place] CARDIAC ENZYMES Total CK 69 12 - 191 04/11/2016 [facility] [place] CARDIAC ENZYMES BNP 18 <=100 pg/mL 04/11/2016 [facility] [place] CARDIAC ENZYMES Troponin-I <0.02 0.00 - 0.40 04/11/2016 [facility] [place] CARDIAC ENZYMES CK MB Index 3.2 0.0 - 2.5 04/11/2016 [facility] CHEM PANEL eGFR 100 04/11/2016 Result Comment: The eGFR is calculated using the CKD-EPI formula. In most young, healthy individuals the eGFR will be >90 mL/min/1.73m2. The eGFR declines with age. An eGFR of 60-89 may be normal in some populations, particularly the elderly, for whom the CKD-EPI formula has not been extensively validated. Use of the eGFR is not recommended in the following populations:

Individuals with unstable creatinine concentrations, including patients and those with serious co-morbid conditions.

Patients with extremes in muscle mass or diet.

The data above are obtained from the National Kidney Disease Education Program (NKDEP) which additionally recommends that when the eGFR is used in patients with extremes of body mass index for purposes of drug dosing, the eGFR should be multiplied by the estimated BMI. [facility] CHEM PANEL Chloride Lvl 102 95 - 109 04/11/2016 [facility] [place] CHEM PANEL Glucose Lvl 116 70 - 99 04/11/2016 [facility] CHEM PANEL AGAP 9.6 10.0 - 20.0 04/11/2016 [facility] [place] CHEM PANEL B/C Ratio 9 6 - 25 04/11/2016 [facility] [place] CHEM PANEL Bili Total 0.4 0.2 - 1.3 04/11/2016 [facility] CHEM PANEL Alk Phos 79 39 - 136 04/11/2016 [facility] CHEM PANEL ALT 16 0 - 65 04/11/2016 [facility] CHEM PANEL AST 14 0 - 37 04/11/2016 [facility] CHEM PANEL Albumin Lvl 2.8 3.5 - 5.0 04/11/2016 [facility] CHEM PANEL CO2 29 24 - 32 04/11/2016 [facility] [place] CHEM PANEL Total Protein 7.0 6.4 - 8.4 04/11/2016 [facility] CHEM PANEL Calcium Lvl 8.4 8.5 - 10.5 04/11/2016 [facility] [place] CHEM PANEL Creatinine Lvl 0.89 0.50 - 1.40 04/11/2016 [facility] CHEM PANEL BUN 8 7 - 22 04/11/2016 [facility] CHEM PANEL Potassium Lvl 3.6 3.5 - 5.1 04/11/2016 [facility] CHEM PANEL Sodium Lvl 137 135 - 145 04/11/2016 [facility] [place] CHEM PANEL A/G Ratio 0.7 0.7 - 1.6 04/11/2016 [facility] [place] CHEM PANEL Globulin 4.2 2.7 - 4.2 04/11/2016 [facility] [place] HEMATOLOGY RDW 14.4 11.5 - 14.5 04/11/2016 [facility] [place] HEMATOLOGY Platelet 214 133 - 450 04/11/2016 [facility] MPV 7.7 7.4 - 10.4 04/11/2016 [facility] MCH 29.1 27.0 - 31.0 04/11/2016 [facility] MCHC 32.4 32.0 - 36.0 04/11/2016 [facility] Hgb 14.9 14.0 - 18.0 04/11/2016 [facility] [place] HEMATOLOGY Hct 45.9 42.0 - 54.0 04/11/2016 [facility] [place] HEMATOLOGY MCV 89.8 80.0 - 94.0 04/11/2016 [facility] [place] HEMATOLOGY WBC 15.5 3.7 - 10.4 04/11/2016 [facility] RBC 5.12 4.70 - 6.10 04/11/2016 [facility] Monocytes 10.4 2.0 - 12.0 04/11/2016 [facility] RBC Morph Normal (04/11/16 12:54 PM) 04/11/2016 [facility] Lymphocytes 14.5 20.0 - 40.0 04/11/2016 [facility] Segs 72.8 45.0 - 75.0 04/11/2016 [facility] Plt Morph Normal (04/11/16 12:54 PM) 04/11/2016 [facility] Eosinophils 1.0 0.0 - 4.0 04/11/2016 [facility] Basophils # 0.2 0.0 - 0.2 04/11/2016 [facility] Basophils 1.3 0.0 - 1.0 04/11/2016 [facility] Lymphocytes # 2.2 1.0 - 5.5 04/11/2016 [facility] Segs-Bands # 11.3 1.5 - 8.1 04/11/2016 [facility] Eosinophils # 0.2 0.0 - 0.5 04/11/2016 [facility] Monocytes # 1.6 0.0 - 0.8 04/11/2016 [facility] [place] CHEM PANEL eGFR 105 03/21/2016 Result Comment: The eGFR is calculated using the CKD-EPI formula. In most young, healthy individuals the eGFR will be >90 mL/min/1.73m2. The eGFR declines with age. An eGFR of 60-89 may be normal in some populations, particularly the elderly, for whom the CKD-EPI formula has not been extensively validated. Use of the eGFR is not recommended in the following populations:

Individuals with unstable creatinine concentrations, including patients and those with serious co-morbid conditions.

Patients with extremes in muscle mass or diet.

The data above are obtained from the National Kidney Disease Education Program (NKDEP) which additionally recommends that when the eGFR is used in patients with extremes of body mass index for purposes of drug dosing, the eGFR should be multiplied by the estimated BMI. [facility] [place] CHEM PANEL A/G Ratio 0.5 0.7 - 1.6 03/21/2016 [facility] [place] CHEM PANEL ALT 17 0 - 65 03/21/2016 [facility] [place] CHEM PANEL AST 18 0 - 37 03/21/2016 [facility] [place] CHEM PANEL Alk Phos 60 39 - 136 03/21/2016 [facility] [place] CHEM PANEL Sodium Lvl 139 135 - 145 03/21/2016 [facility] [place] CHEM PANEL Potassium Lvl 4.7 3.5 - 5.1 03/21/2016 [facility] [place] CHEM PANEL Chloride Lvl 106 95 - 109 03/21/2016 [facility] CHEM PANEL CO2 26 24 - 32 03/21/2016 [facility] [place] CHEM PANEL AGAP 11.7 10.0 - 20.0 03/21/2016 [facility] [place] CHEM PANEL Bili Total 0.7 0.2 - 1.3 03/21/2016 [facility] [place] CHEM PANEL B/C Ratio 8 6 - 25 03/21/2016 [facility] [place] CHEM PANEL Total Protein 7.1 6.4 - 8.4 03/21/2016 [facility] [place] CHEM PANEL Albumin Lvl 2.5 3.5 - 5.0 03/21/2016 [facility] [place] CHEM PANEL Globulin 4.6 2.7 - 4.2 03/21/2016 [facility] [place] CHEM PANEL Calcium Lvl 8.3 8.5 - 10.5 03/21/2016 [facility] [place] CHEM PANEL Glucose Lvl 149 70 - 99 03/21/2016 [facility] [place] CHEM PANEL BUN 6 7 - 22 03/21/2016 [facility] [place] CHEM PANEL Creatinine Lvl 0.80 0.50 - 1.40 03/21/2016 [facility] [place] CHEM PANEL Creatinine Lvl 0.82 0.50 - 1.40 03/21/2016 [facility] [place] CHEM PANEL eGFR 104 03/21/2016 Result Comment: The eGFR is calculated using the CKD-EPI formula. In most young, healthy individuals the eGFR will be >90 mL/min/1.73m2. The eGFR declines with age. An eGFR of 60-89 may be normal in some populations, particularly the elderly, for whom the CKD-EPI formula has not been extensively validated. Use of the eGFR is not recommended in the following populations:

Individuals with unstable creatinine concentrations, including patients and those with serious co-morbid conditions.

Patients with extremes in muscle mass or diet.

The data above are obtained from the National Kidney Disease Education Program (NKDEP) which additionally recommends that when the eGFR is used in patients with extremes of body mass index for purposes of drug dosing, the eGFR should be multiplied by the estimated BMI. [facility] Sed Rate 59 0 - 15 03/21/2016 [facility] MPV 7.6 7.4 - 10.4 03/21/2016 [facility] Platelet 284 133 - 450 03/21/2016 [facility] MCHC 33.2 32.0 - 36.0 03/21/2016 [facility] RDW 14.0 11.5 - 14.5 03/21/2016 [facility] MCH 29.7 27.0 - 31.0 03/21/2016 [facility] Hct 42.8 42.0 - 54.0 03/21/2016 [facility] RBC 4.78 4.70 - 6.10 03/21/2016 [facility] WBC 14.4 3.7 - 10.4 03/21/2016 [facility] MCV 89.5 80.0 - 94.0 03/21/2016 [facility] Hgb 14.2 14.0 - 18.0 03/21/2016 [facility] Monocytes # 0.4 0.0 - 0.8 03/21/2016 [facility] Basophils # 0.1 0.0 - 0.2 03/21/2016 [facility] Basophils 0.5 0.0 - 1.0 03/21/2016 [facility] Segs-Bands # 13.0 1.5 - 8.1 03/21/2016 [facility] Monocytes 2.5 2.0 - 12.0 03/21/2016 [facility] [place] HEMATOLOGY Eosinophils 0.2 0.0 - 4.0 03/21/2016 [facility] [place] HEMATOLOGY Lymphocytes # 0.9 1.0 - 5.5 03/21/2016 [facility] [place] HEMATOLOGY Segs 90.7 45.0 - 75.0 03/21/2016 [facility] [place] HEMATOLOGY Lymphocytes 6.1 20.0 - 40.0 03/21/2016 [facility] [place] IMMUNOLOGY T-Spot.TB Negative (03/21/16 3:42 AM) Negative 03/21/2016 [facility] [place] CHEM PANEL eGFR 102 03/20/2016 Result Comment: The eGFR is calculated using the CKD-EPI formula. In most young, healthy individuals the eGFR will be >90 mL/min/1.73m2. The eGFR declines with age. An eGFR of 60-89 may be normal in some populations, particularly the elderly, for whom the CKD-EPI formula has not been extensively validated. Use of the eGFR is not recommended in the following populations:

Individuals with unstable creatinine concentrations, including patients and those with serious co-morbid conditions.

Patients with extremes in muscle mass or diet.

The data above are obtained from the National Kidney Disease Education Program (NKDEP) which additionally recommends that when the eGFR is used in patients with extremes of body mass index for purposes of drug dosing, the eGFR should be multiplied by the estimated BMI. [facility] [place] CHEM PANEL Bili Total 0.1 0.2 - 1.3 03/20/2016 [facility] [place] CHEM PANEL Alk Phos 65 39 - 136 03/20/2016 [facility] [place] CHEM PANEL AST 13 0 - 37 03/20/2016 [facility] [place] CHEM PANEL Chloride Lvl 103 95 - 109 03/20/2016 [facility] [place] CHEM PANEL Potassium Lvl 3.4 3.5 - 5.1 03/20/2016 [facility] [place] CHEM PANEL Sodium Lvl 136 135 - 145 03/20/2016 [facility] [place] CHEM PANEL CO2 28 24 - 32 03/20/2016 [facility] [place] CHEM PANEL Total Protein 7.2 6.4 - 8.4 03/20/2016 [facility] [place] CHEM PANEL Calcium Lvl 8.3 8.5 - 10.5 03/20/2016 [facility] [place] CHEM PANEL Creatinine Lvl 0.85 0.50 - 1.40 03/20/2016 [facility] [place] CHEM PANEL BUN 7 7 - 22 03/20/2016 [facility] CHEM PANEL ALT 16 0 - 65 03/20/2016 [facility] CHEM PANEL Albumin Lvl 2.6 3.5 - 5.0 03/20/2016 [facility] CHEM PANEL Glucose Lvl 85 70 - 99 03/20/2016 [facility] CHEM PANEL B/C Ratio 8 6 - 25 03/20/2016 [facility] [place] CHEM PANEL AGAP 8.4 10.0 - 20.0 03/20/2016 [facility] CHEM PANEL Globulin 4.6 2.7 - 4.2 03/20/2016 [facility] CHEM PANEL A/G Ratio 0.6 0.7 - 1.6 03/20/2016 [facility] CHEM PANEL Lipase Lvl 85 73 - 393 03/20/2016 [facility] HEMATOLOGY Lymphocytes # 2.0 1.0 - 5.5 03/20/2016 [facility] HEMATOLOGY Monocytes # 1.3 0.0 - 0.8 03/20/2016 [facility] HEMATOLOGY Segs-Bands # 9.9 1.5 - 8.1 03/20/2016 [facility] HEMATOLOGY Basophils 0.7 0.0 - 1.0 03/20/2016 [facility] HEMATOLOGY Basophils # 0.1 0.0 - 0.2 03/20/2016 [facility] HEMATOLOGY Eosinophils # 0.3 0.0 - 0.5 03/20/2016 [facility] HEMATOLOGY Lymphocytes 14.9 20.0 - 40.0 03/20/2016 [facility] HEMATOLOGY Monocytes 9.9 2.0 - 12.0 03/20/2016 [facility] HEMATOLOGY Segs 72.5 45.0 - 75.0 03/20/2016 [facility] HEMATOLOGY Eosinophils 2.0 0.0 - 4.0 03/20/2016 [facility] HEMATOLOGY PTT 30.5 22.9 - 35.8 03/20/2016 [facility] HEMATOLOGY INR 0.96 0.85 - 1.17 03/20/2016 [facility] HEMATOLOGY PT 13.1 12.0 - 14.7 03/20/2016 [facility] HEMATOLOGY MPV 7.7 7.4 - 10.4 03/20/2016 [facility] HEMATOLOGY Hct 44.5 42.0 - 54.0 03/20/2016 [facility] HEMATOLOGY MCV 89.7 80.0 - 94.0 03/20/2016 [facility] HEMATOLOGY Hgb 14.9 14.0 - 18.0 03/20/2016 [facility] HEMATOLOGY MCH 30.1 27.0 - 31.0 03/20/2016 [facility] [place] HEMATOLOGY MCHC 33.5 32.0 - 36.0 03/20/2016 [facility] [place] HEMATOLOGY RDW 14.1 11.5 - 14.5 03/20/2016 [facility] [place] HEMATOLOGY Platelet 278 133 - 450 03/20/2016 [facility] [place] HEMATOLOGY WBC 13.6 3.7 - 10.4 03/20/2016 [facility] [place] HEMATOLOGY RBC 4.97 4.70 - 6.10 03/20/2016 [facility] [place] URINE AND STOOL UA RBC <1 0 - 2 03/20/2016 [facility] [place] URINE AND STOOL UA Mucus Few /LPF None Seen /LPF 03/20/2016 [facility] [place] URINE AND STOOL UA WBC 1 0 - 5 03/20/2016 [facility] [place] URINE AND STOOL UA Urobilinogen <=1.0 mg/dL 0.1 - 1.0 03/20/2016 [facility] [place] URINE AND STOOL UA Leuk Est Negative (03/20/16 2:05 PM) Negative 03/20/2016 [facility] [place] URINE AND STOOL UA Nitrite Negative (03/20/16 2:05 PM) Negative 03/20/2016 [facility] [place] URINE AND STOOL UA Blood Negative (03/20/16 2:05 PM) Negative 03/20/2016 [facility] [place] URINE AND STOOL UA Bili Negative *NA* (03/20/16 2:05 PM) Negative 03/20/2016 [facility] [place] URINE AND STOOL UA Sq Epi Occasional /LPF Few /LPF 03/20/2016 [facility] [place] URINE AND STOOL UA Ketones Negative mg/dL Negative mg/dL 03/20/2016 [facility] [place] URINE AND STOOL UA Glucose Negative mg/dL Negative mg/dL 03/20/2016 [facility] [place] URINE AND STOOL UA Protein Negative mg/dL Negative mg/dL 03/20/2016 [facility] [place] URINE AND STOOL UA pH 7.0 5.0 - 8.0 03/20/2016 [facility] [place] URINE AND STOOL UA Spec Grav 1.018 <=1.030 03/20/2016 [facility] [place] URINE AND STOOL UA Turbidity Clear (03/20/16 2:05 PM) Clear 03/20/2016 [facility] [place] URINE AND STOOL UA Color Yellow *NA* (03/20/16 2:05 PM) Yellow 03/20/2016 [facility] [place] BODY FLUIDS LDH BF Type Pleural (03/08/16 1:05 PM) 03/08/2016 [facility] [place] BODY FLUIDS LDH BF >6000 03/08/2016 [facility] [place] BODY FLUIDS Alb BF Type Pleural *NA* (03/08/16 1:05 PM) 03/08/2016 [facility] [place] BODY FLUIDS Albumin BF 1.8 03/08/2016 [facility] [place] BODY FLUIDS Gluc BF Type Pleural (03/08/16 1:05 PM) 03/08/2016 [facility] [place] BODY FLUIDS Glucose BF <1 03/08/2016 [facility] [place] CHEM PANEL eGFR 106 02/07/2016 Result Comment: The eGFR is calculated using the CKD-EPI formula. In most young, healthy individuals the eGFR will be >90 mL/min/1.73m2. The eGFR declines with age. An eGFR of 60-89 may be normal in some populations, particularly the elderly, for whom the CKD-EPI formula has not been extensively validated. Use of the eGFR is not recommended in the following populations:

Individuals with unstable creatinine concentrations, including patients and those with serious co-morbid conditions.

Patients with extremes in muscle mass or diet.

The data above are obtained from the National Kidney Disease Education Program (NKDEP) which additionally recommends that when the eGFR is used in patients with extremes of body mass index for purposes of drug dosing, the eGFR should be multiplied by the estimated BMI. [facility] [place] CHEM PANEL B/C Ratio 8 6 - 25 02/07/2016 [facility] [place] CHEM PANEL A/G Ratio 0.5 0.7 - 1.6 02/07/2016 [facility] [place] CHEM PANEL Globulin 4.9 2.7 - 4.2 02/07/2016 [facility] [place] CHEM PANEL Bili Total 0.6 0.2 - 1.3 02/07/2016 [facility] [place] CHEM PANEL AGAP 11.9 10.0 - 20.0 02/07/2016 [facility] [place] CHEM PANEL Alk Phos 50 39 - 136 02/07/2016 [facility] [place] CHEM PANEL Albumin Lvl 2.4 3.5 - 5.0 02/07/2016 [facility] [place] CHEM PANEL AST 18 0 - 37 02/07/2016 [facility] [place] CHEM PANEL ALT 20 0 - 65 02/07/2016 [facility] [place] CHEM PANEL Total Protein 7.3 6.4 - 8.4 02/07/2016 [facility] [place] CHEM PANEL BUN 6 7 - 22 02/07/2016 [facility] [place] CHEM PANEL Creatinine Lvl 0.78 0.50 - 1.40 02/07/2016 [facility] CHEM PANEL Glucose Lvl 96 70 - 99 02/07/2016 [facility] CHEM PANEL Calcium Lvl 8.7 8.5 - 10.5 02/07/2016 [facility] CHEM PANEL Potassium Lvl 3.9 3.5 - 5.1 02/07/2016 [facility] CHEM PANEL Chloride Lvl 101 95 - 109 02/07/2016 [facility] CHEM PANEL Sodium Lvl 136 135 - 145 02/07/2016 [facility] CHEM PANEL CO2 27 24 - 32 02/07/2016 [facility] CHEM PANEL ALT 22 0 - 65 02/06/2016 [facility] CHEM PANEL AST 21 0 - 37 02/06/2016 [facility] CHEM PANEL Alk Phos 52 39 - 136 02/06/2016 [facility] CHEM PANEL Calcium Lvl 8.4 8.5 - 10.5 02/06/2016 [facility] CHEM PANEL Total Protein 6.9 6.4 - 8.4 02/06/2016 [facility] CHEM PANEL Albumin Lvl 2.4 3.5 - 5.0 02/06/2016 [facility] CHEM PANEL eGFR 106 02/06/2016 Result Comment: The eGFR is calculated using the CKD-EPI formula. In most young, healthy individuals the eGFR will be >90 mL/min/1.73m2. The eGFR declines with age. An eGFR of 60-89 may be normal in some populations, particularly the elderly, for whom the CKD-EPI formula has not been extensively validated. Use of the eGFR is not recommended in the following populations:

Individuals with unstable creatinine concentrations, including patients and those with serious co-morbid conditions.

Patients with extremes in muscle mass or diet.

The data above are obtained from the National Kidney Disease Education Program (NKDEP) which additionally recommends that when the eGFR is used in patients with extremes of body mass index for purposes of drug dosing, the eGFR should be multiplied by the estimated BMI. [facility] CHEM PANEL A/G Ratio 0.5 0.7 - 1.6 02/06/2016 [facility] CHEM PANEL AGAP 11.9 10.0 - 20.0 02/06/2016 [facility] CHEM PANEL Bili Total 0.8 0.2 - 1.3 02/06/2016 [facility] CHEM PANEL Globulin 4.5 2.7 - 4.2 02/06/2016 [facility] CHEM PANEL B/C Ratio 12 6 - 25 02/06/2016 [facility] CHEM PANEL Potassium Lvl 3.9 3.5 - 5.1 02/06/2016 [facility] CHEM PANEL CO2 26 24 - 32 02/06/2016 [facility] CHEM PANEL Chloride Lvl 102 95 - 109 02/06/2016 [facility] CHEM PANEL Sodium Lvl 136 135 - 145 02/06/2016 [facility] CHEM PANEL Creatinine Lvl 0.78 0.50 - 1.40 02/06/2016 [facility] CHEM PANEL BUN 9 7 - 22 02/06/2016 [facility] CHEM PANEL Glucose Lvl 90 70 - 99 02/06/2016 [facility] CHEM PANEL Glucose Lvl 102 70 - 99 02/05/2016 [facility] CHEM PANEL LDH 650 98 - 192 02/05/2016 [facility] CHEM PANEL Total Protein 6.3 6.4 - 8.4 02/05/2016 [facility] BODY FLUIDS Meso BF Occasional (02/05/16 3:30 PM) 02/05/2016 [facility] BODY FLUIDS Color BF Light Yellow (02/05/16 3:30 PM) Colorless 02/05/2016 [facility] BODY FLUIDS CellCnt BF Type Pleural (02/05/16 3:30 PM) 02/05/2016 [facility] BODY FLUIDS Macrophage BF 11 02/05/2016 [facility] BODY FLUIDS Segs BF 71 02/05/2016 [facility] BODY FLUIDS Lymph BF 18 02/05/2016 [facility] BODY FLUIDS WBC BF 1675 02/05/2016 [facility] BODY FLUIDS Clarity BF Slight Cloudy (02/05/16 3:30 PM) Clear 02/05/2016 [facility] BODY FLUIDS RBC BF 175 02/05/2016 [facility] BODY FLUIDS Gluc BF Type Pleural (02/05/16 3:30 PM) 02/05/2016 [facility] BODY FLUIDS Glucose BF <1 02/05/2016 [facility] BODY FLUIDS Alb BF Type Pleural *NA* (02/05/16 3:30 PM) 02/05/2016 [facility] BODY FLUIDS Albumin BF 1.7 02/05/2016 [facility] BODY FLUIDS pH BF 7.70 02/05/2016 [facility] BODY FLUIDS pH BF Type Pleural (02/05/16 3:30 PM) 02/05/2016 [facility] BODY FLUIDS Amyl BF Type Pleural *NA* (02/05/16 3:30 PM) 02/05/2016 [facility] BODY FLUIDS Amylase BF 21 02/05/2016 [facility] BODY FLUIDS LDH BF 5224 02/05/2016 [facility] BODY FLUIDS LDH BF Type Pleural (02/05/16 3:30 PM) 02/05/2016 [facility] BODY FLUIDS Trig BF Type Pleural *NA* (02/05/16 3:30 PM) 02/05/2016 [facility] BODY FLUIDS Trig BF 16 02/05/2016 [facility] BODY FLUIDS Prot BF Type Pleural *NA* (02/05/16 3:30 PM) 02/05/2016 [facility] BODY FLUIDS Protein BF 4.4 02/05/2016 [facility] BODY FLUIDS Lipase BF Type Pleural *NA* (02/05/16 3:30 PM) 02/05/2016 [facility] BODY FLUIDS Lipase BF 48 02/05/2016 [facility] CHEM PANEL eGFR 105 02/05/2016 Result Comment: The eGFR is calculated using the CKD-EPI formula. In most young, healthy individuals the eGFR will be >90 mL/min/1.73m2. The eGFR declines with age. An eGFR of 60-89 may be normal in some populations, particularly the elderly, for whom the CKD-EPI formula has not been extensively validated. Use of the eGFR is not recommended in the following populations:

Individuals with unstable creatinine concentrations, including patients and those with serious co-morbid conditions.

Patients with extremes in muscle mass or diet.

The data above are obtained from the National Kidney Disease Education Program (NKDEP) which additionally recommends that when the eGFR is used in patients with extremes of body mass index for purposes of drug dosing, the eGFR should be multiplied by the estimated BMI. [facility] CHEM PANEL BUN 6 7 - 22 02/05/2016 [facility] CHEM PANEL Creatinine Lvl 0.80 0.50 - 1.40 02/05/2016 [facility] CHEM PANEL Sodium Lvl 138 135 - 145 02/05/2016 [facility] CHEM PANEL Potassium Lvl 3.9 3.5 - 5.1 02/05/2016 [facility] CHEM PANEL Chloride Lvl 103 95 - 109 02/05/2016 [facility] CHEM PANEL CO2 26 24 - 32 02/05/2016 [facility] CHEM PANEL AGAP 12.9 10.0 - 20.0 02/05/2016 [facility] CHEM PANEL B/C Ratio 8 6 - 25 02/05/2016 [facility] CHEM PANEL Calcium Lvl 8.2 8.5 - 10.5 02/05/2016 [facility] CHEM PANEL Albumin Lvl 2.6 3.5 - 5.0 02/05/2016 [facility] CHEM PANEL Globulin 4.5 2.7 - 4.2 02/05/2016 [facility] CHEM PANEL ALT 24 0 - 65 02/05/2016 [facility] CHEM PANEL A/G Ratio 0.6 0.7 - 1.6 02/05/2016 [facility] CHEM PANEL AST 23 0 - 37 02/05/2016 [facility] CHEM PANEL Alk Phos 56 39 - 136 02/05/2016 [facility] CHEM PANEL Bili Total 0.8 0.2 - 1.3 02/05/2016 [facility] HEMATOLOGY Platelet 238 133 - 450 02/05/2016 [facility] HEMATOLOGY MPV 8.3 7.4 - 10.4 02/05/2016 [facility] HEMATOLOGY MCHC 33.0 32.0 - 36.0 02/05/2016 [facility] HEMATOLOGY MCH 30.4 27.0 - 31.0 02/05/2016 [facility] HEMATOLOGY RDW 13.8 11.5 - 14.5 02/05/2016 [facility] HEMATOLOGY Hgb 14.7 14.0 - 18.0 02/05/2016 [facility] HEMATOLOGY WBC 11.8 3.7 - 10.4 02/05/2016 [facility] HEMATOLOGY RBC 4.84 4.70 - 6.10 02/05/2016 [facility] HEMATOLOGY Hct 44.6 42.0 - 54.0 02/05/2016 [facility] HEMATOLOGY MCV 92.0 80.0 - 94.0 02/05/2016 [facility] HEMATOLOGY Lymphocytes # 1.3 1.0 - 5.5 02/05/2016 [facility] HEMATOLOGY Basophils # 0.1 0.0 - 0.2 02/05/2016 [facility] HEMATOLOGY Basophils 1.2 0.0 - 1.0 02/05/2016 [facility] HEMATOLOGY Eosinophils # 0.4 0.0 - 0.5 02/05/2016 [facility] HEMATOLOGY Monocytes # 1.5 0.0 - 0.8 02/05/2016 [facility] HEMATOLOGY Segs-Bands # 8.5 1.5 - 8.1 02/05/2016 [facility] HEMATOLOGY Monocytes 12.7 2.0 - 12.0 02/05/2016 [facility] HEMATOLOGY Segs 71.5 45.0 - 75.0 02/05/2016 [facility] HEMATOLOGY Eosinophils 3.7 0.0 - 4.0 02/05/2016 [facility] HEMATOLOGY Lymphocytes 10.9 20.0 - 40.0 02/05/2016 [facility] HEMATOLOGY Sed Rate 72 0 - 15 02/04/2016 [facility] BODY FLUIDS Prot BF Type Pleural *NA* (02/04/16 11:00 AM) 02/04/2016 [facility] Protein BF 6.0 02/04/2016 [facility] LDH BF >6000 02/04/2016 [facility] LDH BF Type Pleural (02/04/16 11:00 AM) 02/04/2016 [facility] FLUIDS Lymph BF See Note 3 (02/04/16 11:00 AM) 02/04/2016 Result Comment: Cell diff not performed. No viable cells. All necrotic. per Dr. Klein 02/04/2016 14:14 [facility] FLUIDS Segs BF See Note 2 (02/04/16 11:00 AM) 02/04/2016 Result Comment: Cell diff not performed. No viable cells. All necrotic. per Dr. Klein 02/04/2016 14:14 [facility] [place] [id number] 02/04/2016 [facility] Meso BF See Note 6 (02/04/16 11:00 AM) 02/04/2016 Result Comment: Cell diff not performed. No viable cells. All necrotic. per Dr. Klein 02/04/2016 14:14 [facility] FLUIDS Eos BF See Note 4 (02/04/16 11:00 AM) 02/04/2016 Result Comment: Cell diff not performed. No viable cells. All necrotic. per Dr. Klein 02/04/2016 14:14 [facility] BODY FLUIDS Comment BF Cell diff not performed. No viable cells. All necrotic. per Dr. Klein 02/04/2016 14:14 [facility] 02/04/2016 Result Comment: Cell diff not performed. No viable cells. All necrotic. per Dr. Klein 02/04/2016 14:14 [facility] FLUIDS Macrophage BF See Note 5 (02/04/16 11:00 AM) 02/04/2016 Result Comment: Cell diff not performed. No viable cells. All necrotic. per Dr. Klein 02/04/2016 14:14 [facility] [place] [id number] 02/04/2016 [facility] BODY FLUIDS Supernat BF Brown *ABN* (02/04/16 11:00 AM) Colorless 02/04/2016 [facility] BODY FLUIDS CellCnt BF Type Pleural (02/04/16 11:00 AM) 02/04/2016 [facility] BODY FLUIDS Color BF Brown *ABN* (02/04/16 11:00 AM) Colorless 02/04/2016 [facility] BODY FLUIDS Clarity BF See Note 1 (02/04/16 11:00 AM) Clear 02/04/2016 Result Comment: Turbid [facility] BODY FLUIDS Gluc BF Type Pleural *NA* (02/04/16 11:00 AM) 02/04/2016 [facility] BODY FLUIDS Glucose BF 4 02/04/2016 [facility] BODY FLUIDS Alb BF Type Pleural *NA* (02/04/16 11:00 AM) 02/04/2016 [facility] BODY FLUIDS Albumin BF 1.9 02/04/2016 [facility] CHEM PANEL Lactic Acid Lvl 1.1 0.5 - 2.2 02/04/2016 [facility] RF Qnt >600 IU/mL 0 - 20 02/04/2016 [facility] SANDY Positive *ABN* (02/04/16 7:30 AM) Negative 02/04/2016 [facility] C-REACTIVE PROTEIN 34.1 <=2.9 mg/L 02/04/2016 [facility] SS-A (Ro) Ab <0.2 <=0.9 AI 02/04/2016 [facility] SS-B (La) Ab <0.2 <=0.9 AI 02/04/2016 [facility] DNA Ab (DS) Negative (02/04/16 7:30 AM) Negative 02/04/2016 [facility] Sm Ab <0.2 <=0.9 AI 02/04/2016 [facility] WEB [employer] DES[employer]ER Ab 0.5 <=0.9 AI 02/04/2016 [facility] SANDY Interp Pattern appears Speckled, Chromosome Positive 02/04/2016 [facility] SANDY Titer 1:80 *ABN* (02/04/16 7:30 AM) Negative 02/04/2016 [facility] URINE AND STOOL UA Mucus Many /LPF None Seen /LPF 02/04/2016 [facility] URINE AND STOOL UA CaOx Caryn Occasional /HPF None Seen /HPF 02/04/2016 [facility] URINE AND STOOL UA Hyal Cast 10 0 - 2 02/04/2016 [facility] URINE AND STOOL UA Color Joellen 02/04/2016 [facility] URINE AND STOOL UA Turbidity Slight *ABN* (02/03/16 11:41 PM) Clear 02/04/2016 [facility] URINE AND STOOL UA Spec Grav 1.036 <=1.030 02/04/2016 [facility] URINE AND STOOL UA Protein 100 mg/dL Negative mg/dL 02/04/2016 [facility] URINE AND STOOL UA Ketones Trace mg/dL Negative mg/dL 02/04/2016 [facility] URINE AND STOOL UA Bili Moderate *ABN* (02/03/16 11:41 PM) Negative 02/04/2016 [facility] URINE AND STOOL UA pH 5.0 5.0 - 8.0 02/04/2016 [facility] URINE AND STOOL UA Glucose Negative mg/dL Negative mg/dL 02/04/2016 [facility] URINE AND STOOL UA WBC 3 0 - 5 02/04/2016 [facility] URINE AND STOOL UA Leuk Est Negative (02/03/16 11:41 PM) Negative 02/04/2016 [facility] URINE AND STOOL UA Sq Epi Moderate /LPF Few /LPF 02/04/2016 [facility] URINE AND STOOL UA RBC 1 0 - 2 02/04/2016 [facility] URINE AND STOOL UA Urobilinogen 2.0 0.1 - 1.0 02/04/2016 [facility] URINE AND STOOL UA Nitrite Negative (02/03/16 11:41 PM) Negative 02/04/2016 [facility] URINE AND STOOL UA Blood Negative (02/03/16 11:41 PM) Negative 02/04/2016 [facility] CARDIAC ENZYMES CK MB Index 1.4 0.0 - 2.5 02/04/2016 [facility] CARDIAC ENZYMES CK MB 3.2 0.5 - 3.6 02/04/2016 [facility] CARDIAC ENZYMES Total CK 225 12 - 191 02/04/2016 [facility] CARDIAC ENZYMES Troponin-I <0.02 0.00 - 0.40 02/04/2016 [facility] CARDIAC ENZYMES BNP 14 <=100 pg/mL 02/04/2016 [facility] CHEM PANEL Lipase Lvl 77 73 - 393 02/04/2016 [facility] CHEM PANEL Amylase Lvl 52 25 - 115 02/04/2016 [facility] HEMATOLOGY Lymphocytes # 1.6 1.0 - 5.5 02/04/2016 [facility] HEMATOLOGY Segs-Bands # 7.6 1.5 - 8.1 02/04/2016 [facility] HEMATOLOGY Monocytes # 1.2 0.0 - 0.8 02/04/2016 [facility] HEMATOLOGY Basophils 1.2 0.0 - 1.0 02/04/2016 [facility] HEMATOLOGY Eosinophils 6.7 0.0 - 4.0 02/04/2016 [facility] HEMATOLOGY Basophils # 0.1 0.0 - 0.2 02/04/2016 [facility] HEMATOLOGY Eosinophils # 0.8 0.0 - 0.5 02/04/2016 [facility] HEMATOLOGY Segs 67.6 45.0 - 75.0 02/04/2016 [facility] HEMATOLOGY Monocytes 10.5 2.0 - 12.0 02/04/2016 [facility] HEMATOLOGY Lymphocytes 14.0 20.0 - 40.0 02/04/2016 [facility] HEMATOLOGY INR 1.00 0.85 - 1.17 02/04/2016 [facility] HEMATOLOGY PT 13.5 12.0 - 14.7 02/04/2016 [facility] HEMATOLOGY PTT 42.1 22.9 - 35.8 02/04/2016 [facility] HEMATOLOGY Hct 43.2 42.0 - 54.0 02/04/2016 [facility] HEMATOLOGY Hgb 14.4 14.0 - 18.0 02/04/2016 [facility] HEMATOLOGY RBC 4.74 4.70 - 6.10 02/04/2016 [facility] HEMATOLOGY WBC 11.3 3.7 - 10.4 02/04/2016 [facility] HEMATOLOGY Platelet 255 133 - 450 02/04/2016 [facility] HEMATOLOGY MCH 30.2 27.0 - 31.0 02/04/2016 [facility] MCV 91.0 80.0 - 94.0 02/04/2016 [facility] HEMATOLOGY RDW 13.6 11.5 - 14.5 02/04/2016 [facility] HEMATOLOGY MCHC 33.2 32.0 - 36.0 02/04/2016 [facility] HEMATOLOGY MPV 8.4 7.4 - 10.4 02/04/2016 [facility] URINALYSIS UA Blood Trace *ABN* (05/15/2011 16:35:00) ?? >Negative 05/15/2011 ABN [facility] URINALYSIS UA Bili Negative *NA* (05/15/2011 16:35:00) ?? >Negative 05/15/2011 NA [facility] URINALYSIS UA Urobilinogen 0.2 0.1 - 1.0 05/15/2011 Normal [facility] URINALYSIS UA Glucose Negative (05/15/2011 16:35:00) ?? >Negative 05/15/2011 Normal [facility] URINALYSIS UA Bacteria Moderate /HPF (05/15/2011 16:35:00) ?? >None Seen 05/15/2011 Normal [facility] URINALYSIS UA Trichomonas Moderate /HPF *ABN* (05/15/2011 16:35:00) ?? >None Seen 05/15/2011 ABN [facility] URINALYSIS UA RBC 0-2 /HPF (05/15/2011 16:35:00) ?? >0 - 2 05/15/2011 Normal [facility] URINALYSIS UA Nitrite Negative (05/15/2011 16:35:00) ?? >Negative 05/15/2011 Normal [facility] URINALYSIS UA Leuk Est Small *ABN* (05/15/2011 16:35:00) ?? >Negative 05/15/2011 ABN [facility] URINALYSIS Micro? Performed (05/15/2011 16:35:00) ?? 05/15/2011 Normal [facility] URINALYSIS UA Sq Epi Few /LPF (05/15/2011 16:35:00) ?? >Few 05/15/2011 Normal [facility] URINALYSIS UA WBC 6-10 /HPF *ABN* (05/15/2011 16:35:00) ?? >None Seen 05/15/2011 ABN [facility] URINALYSIS UA Ketones Negative *NA* (05/15/2011 16:35:00) ?? >Negative 05/15/2011 NA [facility] URINALYSIS UA Spec Grav 1.025 <<=1.030 05/15/2011 Normal [facility] URINALYSIS UA pH 6.0 5.0 - 8.0 05/15/2011 Normal [facility] URINALYSIS UA Protein Negative (05/15/2011 16:35:00) ?? >Negative 05/15/2011 Normal [facility] URINALYSIS UA Turbidity Clear (05/15/2011 16:35:00) ?? >Clear 05/15/2011 Normal [facility] URINALYSIS UA Color Yellow *NA* (05/15/2011 16:35:00) ?? >Yellow 05/15/2011 NA [facility] Pathology Reports No Data Provided for This Section Diagnostic Reports Report Value Date Source XRAY FOOT 2 VIEWS MIN IMPRESSION: Periarticular osseous demineralization may be associated with knowndiagnosis of rheumatoid arthropathy. Signed By: Gera Monaco MD, 11/02/2018 12:46 PM foot x-rays - 2 view(s), right HISTORY:Rheumatoid arthritis COMPARISON: None DISCUSSION:Periarticular osseous demineralization.No acute displaced fracture.No aggressive osseous lesion.Plantar calcaneal enthesophyte Joints:The joint spaces are well-maintained.No dislocation. Soft tissues:Appear unremarkable. Logan Delgado/Karolina In - 11/02/2018 12:51 PM [...] By: Gera Monaco MD, 11/02/2018 12:46 PM 11/02/2018 [facility] XRAY HAND 2 VIEWS IMPRESSION: Periarticular osseous demineralization may be reflective of earlyrheumatoid arthropathy. Dictated By: Jj Sierra MD, 11/01/2018 3:07 PM I have reviewed the study and agree with the findings in this report. Signed By: Gera Monaco MD, 11/01/2018 3:08 PM Bilateral hand x-rays - 2 view(s), 4 images HISTORY:rheumatoid arthritis COMPARISON: None DISCUSSION:Bone:No acute displaced fracture.No aggressive osseous lesion.Periarticular osseous demineralization. Joints:The joint spaces are well- maintained.No dislocation. Soft tissues:Appear unremarkable. Joshua Delgado In - 11/01/2018 3:13 PM CDTBilateral hand x-rays - 2 view(s), 4 images [...] By: Gera Monaco MD, 11/01/2018 3:08 PM 11/01/2018 [facility] Chest 1view DX Study: Chest 1view DX portable 01/20/2018 0718 hours Clinical Indication: -Pneumonia, tracheostomy tube Comparison: Chest 01/14/2018 FINDINGS: Tracheostomy tube is in satisfactory position. Cardiac size is normal. The lungs are moderately inflated and demonstrate diffuse interstitial opacities consistent with scarring. Extensive pleural opacity in the right hemithorax is stable. No vascular congestion is seen. Feeding tube has been removed. SL: [id number] 01/20/2018 [facility] Esophagus BA swallow function video DX Patient Name: SANDY RIOJAS : 1965; Age: 52 years y/o Male MR: [id number] * MODIFIED BARIUM SWALLOW HISTORY: Dysphagia, COMMENT: A modified barium swallow was performed in conjunction with the speech pathologist in the usual manner. It is noted that the patient had a Passy-[place] speaking valve in place during this study. The fluoroscopy time was: 1.19 minutes. Radiation dose: 7.08 mGy. IMPRESSION: Thin barium from a spoon x2: No aspiration or penetration. Thin barium from a cup x2: Flash penetration was noted on the initial swallow. The 2nd swallow, no aspiration or penetration. Thin barium from a straw with consecutive sips: No aspiration or penetration. Tornado consistent barium from a spoon x2: No aspiration or penetration. Tornado consistency barium from a cup x2: No aspiration or penetration. Barium of pudding consistency: Normal swallowing mechanism, no aspiration or penetration. A cracker impregnated with barium: Normal swallowing mechanism, no aspiration or penetration. Please refer to the speech pathologist report. SL: [id number] 01/16/2018 [facility] Ext Lower Venous Doppler Bilat US Exam: Ext Lower Venous Doppler Bilat US Clinical Indication: - lower extremity swelling. Comparison: None. TECHNIQUE: Sonographic evaluation of the bilateral lower extremity veins was performed using high resolution B-mode imaging, along with pulse and color Doppler imaging. FINDINGS: Right lower extremity: The common femoral vein, superficial femoral vein, popliteal vein and visualized posterior tibial/calf veins are patent. There is no echogenic debris to suggest deep venous thrombosis. The saphenofemoral junction is unremarkable. Left lower extremity: The common femoral vein, superficial femoral vein, popliteal vein and visualized posterior tibial/calf veins are patent. There is no echogenic debris to suggest deep venous thrombosis. The saphenofemoral junction is unremarkable. IMPRESSION: No deep venous thrombosis of bilateral lower extremities. SL: [id number] 01/14/2018 [facility] 1view DX Portable chest: The tracheostomy tube is in satisfactory position. The nasogastric sump tube has been removed since the previous day with placement of a feeding tube with the tip in the proximal stom ach. There is no change in the bilateral pleural effusions and mild lower lobe interstitial infiltrates. The cardiac silhouette is normal in size without significant pulmonary venous congestion. There are no other new findings. [id number] 01/14/2018 [facility] Abdomen AP DX PROCEDURE: Portable supine abdomen radiograph one view on 01/10/2018 at 1031 hours. INDICATION: Dobbhoff tube placement COMPARISON: Chest radiograph dated 01/08/2018. CT chest without contrast dated 12/07/2017. FINDINGS: Distal Dobbhoff tube tip overlies the midline upper abdomen and appears likely within the stomach. Bowel gas pattern the abdomen appears unremarkable. Pleural-parenchymal opacities are again identified in the mid to lower chest bilaterally and appear more prominent on the right side. Cardiac silhouette is borderline prominent. IMPRESSION: 1. Distal Dobbhoff tube tip appears likely positioned within the stomach, midline upper abdomen. SL: [id number] 01/10/2018 [facility] 1view DX Chest 1view DX CLINICAL HISTORY: - Intubated/SOB COMPARISON: 01/07/2018 FINDINGS: Limited AP portable study. Support Devices: The various support lines and tubes are stable in position in comparison to previous study. Lungs: Loculated pleural collection in the right upper lung is unchanged. Interval increase in right basilar effusion. Small left basilar effusion is also noted. Vascular congestion has increased in the interim. No pneumothorax is evident. Cardiomediastinum: Stable cardiomediastinum. Bone and Soft Tissues: No acute bony abnormality is noted. Multiple EKG leads and other wires project over the patient's chest. IMPRESSION: Interval increase in bibasilar effusions and vascular congestion. SL: [id number] 01/08/2018 [facility] 1view DX 1 VIEW CXR. PORTABLE EXAM 11:33 AM HISTORY: Endotracheal tube and NG tube placement. COMPARISON: This morning's 1:31 AM chest x-ray. Endotracheal tube tip is at the level of the medial aspect of the clavicles. The NG tube extends in the stomach and the sidehole and tip of the NG tube are within the gastric lumen. Partially loculated stable right pleural fluid collection unchanged from earlier today. Diffuse prominence of interstitial markings bilaterally which appears slightly worse now than they did 10 hours ago. Cardiomediastinal silhouette normal. There is a healing right fourth rib fracture laterally. Bones otherwise intact. IMPRESSION: Developing interstitial process bilaterally consistent with edema or pneumonia. Exam otherwise stable. Well-positioned ET and NG tube. END OF IMPRESSION SL: [id number] 01/07/2018 [facility] Chest 1view DX CHEST RADIOGRAPH SINGLE VIEW INDICATION: Shortness of breath, wheezing COMPARISON: Chest radiograph 12/11/2017 IMPRESSION: The previously seen partially loculated right pleural effusion appears mildly increased in size. Mild pleural effusion at the left lung base is grossly unchanged. There is mild pulmonary vascular congestion. There is stable atelectasis of the right upper lobe. SL:16 01/07/2018 [facility] Brain w/wo contrast MRI Clinical Indication: - r/o brain abnormalities impeding resp function. Comparison: None. TECHNIQUE: Multiplanar pre- and post-gadolinium contrast-enhanced MRI of the brain is performed. Contrast: 20 cc of gadolinium was administered. Full and complete MRI brain with and without gadolinium contrast exam was performed. FINDINGS: There is no evidence of acute infarction, intracranial hemorrhage or intracranial mass lesion. There is no specific evidence of abnormal intracranial enhancement. The ventricles are within normal limits in size and configuration, without evidence of hydrocephalus. The major intracranial flow-voids are intact. The paranasal sinuses are clear. There are bilateral mastoid effusions. The bones and extracranial soft tissues are unremarkable. IMPRESSION: No evidence of acute infarction, intracranial hemorrhage, intracranial mass lesion or hydrocephalus. SL: [id number] 12/13/2017 [facility] Neck soft tissue w contrast CT Clinical Indication: - stridor Comparison: None Technique: CT of the neck is performed with a multidetector CT. Coronal and sagittal reconstructions were obtained. CONTRAST: 100 cc of IV Omnipaque contrast material was used for the exam. FINDINGS: SOFT TISSUES: There are no neck masses noted. There are no fluid collections or abscess. LYMPH NODES: There is no submandibular lymphadenopathy. There is no jugular chain or posterior cervical chain lymphadenopathy or masses. The nasopharyngeal adenoids and tonsillar pillar regions appear unremarkable. SALIVARY GLANDS: The submandibular and parotid glands are unremarkable. PARANASAL SINUSES AND AIRWAY: The paranasal sinuses are clear without soft tissue thickening or air-fluid levels. The nasopharyngeal, oropharyngeal, supraglottic and infraglottic airway is unremarkable. SUPRAHYOID NECK: The oropharynx, oral cavity, parapharyngeal space, and retropharyngeal space are normal. INFRAHYOID NECK: The valleculae and piriform sinuses are normal. The larynx, hypopharynx, epiglottis and supraglottis are normal. ORBITS: The visualized orbits are unremarkable. VASCULAR STRUCTURES: The jugular veins and carotid vessels are unremarkable. OSSEOUS STRUCTURES: There are no fractures or dislocations. There are no lucencies at the bases of the mandibular teeth to suggest abscess. There are no radiopaque foreign bodies noted. THYROID GLANDS: The thyroid lobes are symmetric and there are no lesions. VISUALIZED LUNG APICES: There are no pulmonary masses or consolidation. Pleural thickening is noted versus loculated effusion If there is further concern for neck masses or malignancy, PET/CT imaging or MRI of the neck should be performed for complete assessment. IMPRESSION: Unremarkable postcontrast CT examination of the neck. Right apical pleural thickening versus loculated effusion SL: ANNEL 12/11/2017 [facility] 1view DX Clinical Indication: Chest pain - Comparison: 12/06/2017 Technique: X-ray chest frontal projection FINDINGS: There are bilateral pleural effusions, small to moderate on the right and small on the left. There is airspace disease/atelectasis at the right base. The heart is normal in size. The mediastinum is central in position. The visualized bones and soft tissues are unremarkable. IMPRESSION: Airspace disease/atelectasis at the right base. Small to moderate right and small left pleural effusions. SL: [id number] 12/11/2017 [facility] wo contrast CT Clinical Indication: - loculated effusion Comparison: None TECHNIQUE: Sequential trans-axial images were obtained thru the chest and upper abdomen without iodinated contrast. Oral contrast has been administered. Coronal and sagittal reconstructions were obtained. Dose: NBD=675.96 mGy-cm FINDINGS: LUNG PARENCHYMA AND PLEURA: There are no lung nodules. There is no significant interstitial lung disease. There are bilateral pleural effusions, small on the left and small on the right though there is a loculated appearing effusion on the right which involves the apex of the right lung and lateral margin of the right upper lung and hemithorax. Fluid is noted within the right major fissure and left major fissure. There is linear opacity noted in the right upper lobe which may represent scarring or atelectasis. There is no pneumothorax. AIRWAY: The central airway is normal. . MEDIASTINUM: No significant mediastinal lymphadenopathy. HEART: The cardiac chambers are unremarkable. There is no pericardial effusion. VASCULAR STRUCTURES: The pulmonary arteries and great vessels are unremarkable. The thoracic aorta is grossly within normal limits.. The superior vena cava is unremarkable. OSSEOUS STRUCTURES: There are multiple old healed right-sided rib fractures and an old healed left lateral 6th rib fracture. SOFT TISSUE: The subcutaneous soft tissues are unremarkable. VISUALIZED UPPER ABDOMEN: The visualized upper abdomen is within normal limits. ESOPHAGUS: No gross abnormalities. IMPRESSION: 1. Bilateral small pleural effusions and findings to suggest loculation of effusion in the right lateral and superior aspect of the right hemithorax. 2. Small amount of fluid tracking into the bilateral major fissures. 3. Bilateral old healed rib fractures. SL: [id number] 12/07/2017 [facility] Chest 2 views DX CHEST TWO VIEW INDICATION: Cough. Wheezing. COMPARISON: 10/16/2017 chest x-ray FINDINGS: Small to moderate right right and trace amount of left pleural fluid. Mild right base atelectasis The lungs are otherwise clear. Cardiomediastinal silhouette normal. Bones intact. IMPRESSION: Bilateral pleural effusions small to moderate on the right very small on the left. Similar appearance noted in September of this year. END IMPRESSION SL: [id number] 12/06/2017 [facility] Ext Lower Venous Doppler Unilat Patient Name: SANDY RIOJAS : 1965; Age: 52 years Male MR: [id number] Study: Ext Lower Venous Doppler Unilat US 10/16/2017 7:37 AM CDT CLINICAL INDICATION: - SOB, RLE edema. COMPARISON: None TECHNIQUE: Sonographic evaluation of the right lower extremity veins was performed using high resolution B-mode imaging, along with pulse and color Doppler imaging. FINDINGS: Right lower extremity: The common femoral vein, femoral vein, popliteal vein and visualized posterior tibial/calf veins are patent and compressible. The saphenofemoral junction and visualized greater saphenous vein are patent and compressible. IMPRESSION: No evidence of deep venous thrombosis within the right lower extremity. SL: [id number] 10/16/2017 [facility] Chest 1view DX Patient Name: BJ ALONZO : 1965; Age: 52 years Male MR: [id number] Study: Chest 1view DX Order Time: 10/16/2017 7:25 AM CDT CLINICAL INDICATION: - wheezing, sob, smoker COMPARISON: Chest radiograph on 07/01/2016 FINDINGS: Lines: None. Lungs: Small to moderate and loculated right pleural effusion. Right lower lung interstitial opacities. No pneumothorax. Mediastinum: The cardiac silhouette is mildly enlarged. Midline trachea. Bones and soft tissues: No acute abnormalities. IMPRESSION: Small to moderate and loculated right pleural effusion. Right lower lung interstitial opacities may represent atelectasis or pneumonia. SL: [id number] 10/16/2017 [facility] Chest 2 views DX Study: Chest 2 views DX Clinical Indication: Chest pain Comparison: Chest x-ray from 04/11/2016 FINDINGS: Cardiac silhouette is normal in size. Small, loculated appearing pleural effusion along the right lung is seen. Peripheral alveolar opacity in the right upper lobe is stable. Small left pleural effusion is also stable. There is no pneumothorax. The osseous structures are unremarkable. IMPRESSION: Stable appearance of small bilateral pleural effusions. SL: [id number] 07/01/2016 [facility] Chest 2 views DX Chest 2 views DX 04/11/2016 12:12 PM CDT Ordering Physician: Susannah Woods MD CLINICAL HISTORY: Chest pain; TECHNIQUE: PA and lateral upright views of the chest were obtained. COMPARISON: 02/08/2016 and 03/20/2016 FINDINGS: Loculated mild right pleural effusion is present. Small left pleural effusion present. Hyperinflation is present. Otherwise, lungs are clear.. No pneumothorax is present. Cardiomediastinal silhouette is normal. Bones are normal. IMPRESSION: 1. Persistent loculated mild right pleural effusion. 2. Persistent small left pleural effusion. 3. Pulmonary emphysematous changes.. SL: [id number] 04/11/2016 [facility] CTA CTA PULMONARY ARTERIES: HISTORY: Chest pain. TECHNIQUE: Multislice helical images targeted to the pulmonary arteries were done during IV contrast bolus. This was followed by a complete study of the chest with IV contrast. 3-D volume rendered images of the pulmonary arteries were done. ANGIOGRAPHIC FINDINGS: There is no evidence of pulmonary embolus. The central pulmonary arteries are normal caliber. The main pulmonary artery measures 2.0 cm in diameter. There are no other significant pulmonary or systemic vascular abnormalities. NON-ANGIOGRAPHIC FINDINGS: There are stable bilateral pleural effusions and compressive atelectasis in the lungs compared to 03/03/2016. Multiple healing rib fractures on the right are noted. There is no other significant change. IMPRESSION: 1. No evidence of pulmonary embolus. 2. Stable bilateral pleural effusions and compressive lung atelectasis. [id number] 03/20/2016 [facility] Chest 2 views DX Chest 2 views DX CLINICAL HISTORY: Pleural effusion COMPARISON: 03/09/2016 FINDINGS/IMPRESSION: LUNGS: Residual loculated pleural fluid versus pleural thickening is noted along the right lateral hemithorax more prominent superiorly. Similar changes to a lesser degree are noted in the left lower hemithorax. Pleural-parenchymal scarring is present at the left lung base laterally. No other parenchymal lung abnormality is noted. No pulmonary edema. CARDIOVASCULAR: Cardiac silhouette size is normal. MEDIASTINUM/CLIFTON: Trachea is midline. No contour abnormality is noted. OSSEOUS STRUCTURES: No significant bony abnormality is noted. SOFT TISSUES: No significant soft tissue abnormality is noted. Multiple EKG leads and other wires project over the patient's chest. : [id number] 03/20/2016 [facility] Chest 2 views DX PA and lateral chest: Radiographs following right thoracentesis show no change in the right pleural thickening and/or effusion over the upper right lateral and posterior pleural space compared to the radiographs following left thoracentesis on the previous day. There was no significant fluid yield with the right thoracentesis, with a small amount of organized exudative material obtained which was sent for cultures and cytology. There is no evidence of pneumothorax. There is no reaccumulation of the left pleural effusion since the previous thoracentesis, with stable residual pleural changes. The lungs are otherwise clear. The cardiac silhouette and pulmonary vasculature are normal. There is no other significant change. [id number] 03/09/2016 [facility] Thoracentesis with catheter VR RIGHT THORACENTESIS: HISTORY: Chronic loculated right pleural effusion. Patient had previous right thoracentesis on 02/05/2016 with removal 260 mL of fluid. The patient had a repeat left thoracentesis yesterday with removal of 450 mL of fluid. PROCEDURE: Preliminary ultrasound showed a hypoechoic area over the upper right lateral pleural space corresponding to loculated fluid demonstrated on the previous CT and chest radiographs. Using sterile technique, local anesthetic and ultrasound guidance, a 5-Ivorian Yueh catheter was placed into the right pleural space from a posterior intercostal approach. There is no significant yield of fluid, with a small amount of thick exudative material obtained. The Yueh catheter was removed following which a 2nd Yueh catheter was placed at the same location with similar results, with yielded only a small amount of exudative material. The specimens obtained were sent for cultures and cytology.. The patient tolerated the procedure well without immediate complications. A postprocedure PA and lateral chest radiographs showed no change in the loculated right effusion and pleural thickening without evidence of pneumothorax. The patient was subsequently discharged from [facility] in stable condition.. COMMENT: The loculated right effusion is most likely organized at this point. [id number] 03/09/2016 [facility] Chest 2 views DX PA and lateral chest: Radiographs following left thoracentesis with removal of 450 mL of fluid show mild residual pleural thickening or fluid in the left lateral posterior costophrenic angle, similar in appearance to the postthoracentesis radiograph on 02/08/2016. There is no change in the loculated right lateral pleural effusion and pleural thickening since the previous exam. There is no evidence of pneumothorax. The cardiac silhouette and pulmonary vasculature are within normal limits. Multiple old rib fractures are again noted. There is no other significant change. [id number] 03/08/2016 [facility] Thoracentesis with catheter VR LEFT THORACENTESIS: HISTORY: Recurrent left pleural effusion.. PROCEDURE: Using sterile technique, local anesthetic and ultrasound guidance, a 5-Ivorian Yueh catheter was placed into the left pleural space from a posterior intercostal approach. 450 mLof opaque brown pleural fluid was then drained following which the catheter was removed. The patient describes the previous fluid as clear yellow. It is noted that there was a hemorrhagic component of the effusion on the previous CT of 02/05/2016, therefore old hemorrhage is probably the etiology of the brown color. Specimens of the fluid were sent for the requested studies. The patient tolerated the procedure well without immediate complications. Post procedure PA and lateral chest radiographs showed near-complete evacuation of the effusion with residual pleural thickening or fluid at the left base. The patient was subsequently discharged from [facility] in stable condition. MANUEL 13 03/08/2016 [facility] Chest wo contrast CT EXAM: Chest wo contrast CT HISTORY: J90 Pleural effusion, not elsewhere classified COMPARISON: 02/05/2016 Technique: CT scan of the chest was performed from the thoracic inlet to the lung bases without intravenous contrast administration. Images are presented in the axial, sagittal, and coronal planes. The total DLP for this examination is 358 mGycm. FINDINGS: Decrease in size of the inferior aspect of the right effusion since the prior study related to thoracentesis. There is a moderate amount of loculated pleural fluid surrounding the superior right hemithorax which appears stable. There is a moderate amount of pleural fluid surrounding the left lower lobe and entering the left-sided fissure. This appears slightly increased since the prior study. The visualized thyroid gland appears normal. There is no calcific atherosclerotic disease. There is no mediastinal, hilar or axillary adenopathy within the confines of noncontrast technique. There is no pericardial effusion. No endotracheal or endobronchial lesions are present. Evaluation of the lung parenchyma demonstrates no discrete pulmonary nodule or pulmonary mass. The lungs are grossly clear bilaterally. Bilateral healing rib fractures are noted once again. The visualized upper abdomen appears unremarkable for noncontrast technique. IMPRESSION: Loculated moderate right effusion involving the superior aspect of the hemithorax is stable. Persistent moderate left effusion has increased slightly since the prior study. 03/03/2016 [facility] Chest 2 views DX Chest 2 views DX CLINICAL HISTORY:Abnormal chest sounds COMPARISON: 02/05/2016 FINDINGS/IMPRESSION: Limited AP portable study. Support Lines/Devices: none Lungs: Loculated pleural effusion in the right upper lung zone. Extension of fluid into the minor fissure is unchanged from previous study. Small right basilar effusion and atelectasis is also noted. Loculated fluid is present in the left lower hemithorax to worse the left lung base unchanged from previous study. Cardiomediastinum: Cardiomediastinal silhouette is stable. Bone and Soft Tissues: No significant abnormality is evident. Multiple EKG leads and other wires project over the patient's chest. SL: [id number] 02/08/2016 [facility] Ext Lower Venous Doppler Unilat US EXAM: Right lower extremity venous Doppler ultrasound HISTORY: Right lower extremity leg pain and swelling COMPARISON: None TECHNIQUE: Sonographic evaluation of the right lower extremity deep veins was performed using high resolution B-mode imaging, along with pulse and color Doppler imaging. FINDINGS: The common femoral, femoral and popliteal veins and greater saphenous and posterior tibial veins are patent. IMPRESSION: No deep vein thrombosis is seen in the right lower extremity. SL: [id number] 02/05/2016 [facility] Thoracentesis with catheter VR Clinical Indication: Other- See Reason for Consult; Comparison: None CONSENT: Prior to the procedure, the procedure, risks including pneumothorax, benefits and alternatives were discussed with the patient. Written informed consent was obtained. A limited preprocedure ultrasound of the right chest was performed. This showed a water size pocket of fluid in the right costophrenic sulcus, as well as a smaller pocket of fluid in the upper lateral chest. The more dependent pocket was targeted for thoracentesis. PROCEDURE: The patient was prepped and draped in the usual sterile fashion. Using ultrasound guidance, a 5 Ivorian sheathed needle was placed in the largest locule of a right pleural effusion. Approximately 260 mL of somewhat thick, yellow fluid was aspirated. An ultrasound image was printed, scanned, and saved into the permanent medical record. The fluid was sent for routine analysis including cell count, stain, triglycerides, and cultures. The sheath was removed at the end of the procedure. The patient tolerated the procedure well, and there were no immediate complications. A post procedure chest X-ray will be performed. IMPRESSION: Ultrasound guided right thoracentesis with aspiration of 260 mL of fluid. SL: [id number] 02/05/2016 [facility] Chest 1view DX Clinical Indication:50 years Male with Pleural effusion Comparison: Chest x-ray 02/04/2016 FINDINGS: Lines: None. The single frontal chest radiograph shows normal lung volumes. No interstitial or airspace opacities. There is a small amount of loculated pleural fluid in the right upper and mid lateral chest. Trace left pleural effusion. No pneumothorax. Cardiac silhouette is normal. Pulmonary vasculature is normal. The trachea is midline. There are no clinically significant osseous abnormalities noted. IMPRESSION: 1. Decreased size of right pleural effusion post thoracentesis. There is a persistent loculated portion of the pleural effusion in the right upper/mid lateral hemithorax. No pneumothorax. 2. Trace left pleural effusion. 3. No other changes since the last chest x-ray. 02/05/2016 [facility] wo contrast CT Clinical Indication: Absent of breath sounds; shortness of breath, pneumonia Comparison: Chest CT 02/04/2016 TECHNIQUE: Sequential trans-axial images were obtained thru the chest and upper abdomen [<without>] administration of iodinated contrast. Coronal and sagittal reconstructions were obtained. CT Radiation Dose DLP 325 mGy-cm FINDINGS: LUNG PARENCHYMA AND PLEURA: There are no lung nodules. There is no interstitial lung disease. Unchanged small right pleural effusion. Decreased, now small left pleural effusion. There is no pneumothorax. Minimal right lower lobe atelectasis. Improved mild left lower lobe linear opacities. AIRWAY: The central airway is normal. MEDIASTINUM: The non-contrast enhanced images of the mediastinum show no definite mediastinal lymphadenopathy. The non-contrast enhanced images of the heart, pulmonary arteries and great vessels are unremarkable. OSSEOUS STRUCTURES: Several old bilateral rib fractures. No acute abnormalities. VISUALIZED NON-CONTRAST ENHANCED UPPER ABDOMEN: Hepatic steatosis. No other significant abnormalities of the upper abdomen. IMPRESSION: 1. Decreased size of a now small left pleural effusion post thoracentesis. The adjacent linear opacities in the left lower lobe also decreased and are most likely atelectasis, less likely pneumonia. 2. Unchanged small right pleural effusion and minimal right basilar atelectasis. SL: [id number] 02/05/2016 [facility] 1view DX Portable chest: Loculated right pleural effusion is stable compared to 02/03/2016. There is less pleural opacity at the left base. Mild pulmonary venous congestion is again noted. The lungs are other erwin clear. There is no other significant change. [id number] 02/04/2016 [facility] Thoracentesis with catheter VR Clinical Indication: Left pleural effusion; Comparison: Chest x-ray 02/03/2016 CONSENT: Prior to the procedure, the procedure, risks including pneumothorax, benefits and alternatives were discussed with the patient. Written informed consent was obtained. PROCEDURE: The patient was prepped and draped in the usual sterile fashion. Using ultrasound guidance, a 5 Ivorian sheathed needle was placed in the left pleural effusion. An ultrasound image was printed and scanned into the medical record. Approximately 1350 cc of yellow, thick fluid was aspirated. The fluid was sent for routine analysis including cell count, stain, and cultures. The sheath was removed at the end of the procedure. The patient tolerated the procedure well, and there were no immediate complications. IMPRESSION: Ultrasound guided left thoracentesis with aspiration of 1350 cc of yellow, thick fluid. SL: [id number] 02/04/2016 [facility] Chest w contrast CT PROCEDURE: CT CHEST WITH CONTRAST INDICATION: Chest pain COMPARISON: None. TECHNIQUE: CT of the chest with intravenous contrast (100 ccOmnipaque 300). Multiplanar reformats were obtained. COMMENTS: Lines/tubes: None Lungs/pleura: Large left pleural effusion with associated dependent opacity which more likely represents atelectasis though pneumonia is not excluded. Moderate right pleural effusion. Trachea: Unremarkable. Aorta and great vessels: Mild atherosclerotic changes. Pulmonary arteries: Central pulmonary arteries grossly patent. Lymph nodes: Nonspecific mildly enlarged subcarinal lymph node. Mediastinum/heart: No pericardial effusion. Esophagus: Unremarkable. Lower neck/Thyroid: Visualized portions grossly unremarkable. Upper abdomen: Contrast timing somewhat limits evaluation. Visualized portions grossly unremarkable. Soft tissues: Unremarkable. Bones: Bilateral remote rib fractures. IMPRESSION: 1. Large left pleural effusion with associated dependent opacity which more likely represents atelectasis though pneumonia is not excluded. Moderate right pleural effusion. Recommend radiographic follow-up to resolution. 2. Mild atherosclerosis. SL: [id number] 02/04/2016 [facility] Chest 2 views DX Study: CHEST, PA AND LATERAL Clinical Indication: Cough and fever; Comparison: Chest 04/03/2006 FINDINGS: Moderate-sized bilateral loculated pleural effusions have developed. Cardiac size is grossly normal. Mediastinum is not remarkable. No vascular congestion is seen. Chest CT with contrast is recommended for further evaluation. SL: [id number] 02/03/2016 [facility] Consultation Notes No Data Provided for This Section Discharge Summaries No Data Provided for This Section History and Physicals No Data Provided for This Section Vital Signs Vital Sign Value Date Comments Source Systolic (mm Hg) 141 12/26/2018 [facility] Diastolic (mm Hg) 66 12/26/2018 [facility] Heart Rate 82 12/26/2018 [facility] Temperature Oral (F) 36.72 Aracely 12/26/2018 [facility] Respitory Rate 18 12/26/2018 [facility] Height 175.3 cm 12/26/2018 [facility] Weight 125.193 12/26/2018 [facility] Systolic (mm Hg) 152 11/23/2018 [facility] Diastolic (mm Hg) 91 11/23/2018 [facility] Heart Rate 68 11/23/2018 [facility] Temperature Oral (F) 36.78 Aracely 11/23/2018 [facility] Respitory Rate 18 11/23/2018 [facility] Height 175.3 cm 11/23/2018 [facility] Weight 127.007 11/23/2018 [facility] Systolic (mm Hg) 121 11/01/2018 [facility] Diastolic (mm Hg) 69 11/01/2018 [facility] Heart Rate 66 11/01/2018 [facility] Temperature Oral (F) 36.72 Aracely 11/01/2018 [facility] Respitory Rate 20 11/01/2018 [facility] Height 175.3 cm 11/01/2018 [facility] Weight 124.966 11/01/2018 [facility] Respitory Rate 18 09/05/2018 [facility] Height 175.3 cm 09/05/2018 [facility] Weight 121.564 09/05/2018 [facility] Systolic (mm Hg) 122 08/08/2018 [facility] Diastolic (mm Hg) 81 08/08/2018 [facility] Heart Rate 58 08/08/2018 [facility] Temperature Oral (F) 36.67 Aracely 08/08/2018 [facility] Respitory Rate 18 08/08/2018 [facility] Height 175.3 cm 08/08/2018 [facility] Weight 124.286 08/08/2018 [facility] Systolic (mm Hg) 127 07/04/2018 [facility] Diastolic (mm Hg) 74 07/04/2018 [facility] Heart Rate 59 07/04/2018 [facility] Temperature Oral (F) 36.67 Aracely 07/04/2018 [facility] Respitory Rate 18 07/04/2018 [facility] Height 175.3 cm 07/04/2018 [facility] Weight 121.11 07/04/2018 [facility] Temperature Oral (F) 98.1 F 03/24/2018 [facility] Systolic (mm Hg) 137 03/24/2018 [facility] Diastolic (mm Hg) 93 03/24/2018 [facility] Systolic (mm Hg) 148 03/24/2018 [facility] Diastolic (mm Hg) 89 03/24/2018 [facility] Respitory Rate 14 03/24/2018 [facility] Systolic (mm Hg) 131 03/24/2018 [facility] Diastolic (mm Hg) 92 03/24/2018 [facility] Weight 112.727 03/24/2018 [facility] BMI Calculated 36.7 03/24/2018 [facility] Height 175.26 cm 03/24/2018 [facility] Respitory Rate 20 03/24/2018 [facility] Heart Rate 54 03/24/2018 [facility] Temperature Oral (F) 97.9 F 03/24/2018 [facility] Systolic (mm Hg) 110 01/22/2018 [facility] Diastolic (mm Hg) 66 01/22/2018 [facility] Heart Rate 86 01/22/2018 [facility] Respitory Rate 18 01/22/2018 [facility] Temperature Oral (F) 98.7 F 01/22/2018 [facility] Systolic (mm Hg) 95 01/22/2018 [facility] Diastolic (mm Hg) 67 01/22/2018 [facility] Heart Rate 82 01/22/2018 [facility] Temperature Oral (F) 99.3 F 01/22/2018 [facility] Respitory Rate 18 01/22/2018 [facility] Respitory Rate 12 01/22/2018 [facility] Systolic (mm Hg) 107 01/22/2018 [facility] Diastolic (mm Hg) 65 01/22/2018 [facility] Heart Rate 69 01/22/2018 [facility] Temperature Oral (F) 98.3 F 01/22/2018 [facility] Height 182.88 cm 01/11/2018 [facility] Height 182.88 cm 01/11/2018 [facility] Height 182.88 cm 01/11/2018 [facility] BMI Calculated 32.2 01/07/2018 [facility] Weight 107.7 01/07/2018 [facility] Weight 107.7 01/07/2018 [facility] Temperature Oral (F) 98.1 F 12/15/2017 [facility] Heart Rate 83 12/15/2017 [facility] Respitory Rate 18 12/15/2017 [facility] Systolic (mm Hg) 90 12/15/2017 [facility] Diastolic (mm Hg) 53 12/15/2017 [facility] Respitory Rate 18 12/15/2017 [facility] Systolic (mm Hg) 100 12/15/2017 [facility] Diastolic (mm Hg) 58 12/15/2017 [facility] Heart Rate 61 12/15/2017 [facility] Temperature Oral (F) 97.8 F 12/15/2017 [facility] Systolic (mm Hg) 94 12/15/2017 [facility] Diastolic (mm Hg) 50 12/15/2017 [facility] Respitory Rate 18 12/15/2017 [facility] Temperature Oral (F) 98.4 F 12/15/2017 [facility] Heart Rate 72 12/15/2017 [facility] Weight 107.2 12/12/2017 [facility] Weight 113.636 12/12/2017 [facility] BMI Calculated 37 12/12/2017 [facility] Height 175.26 cm 12/12/2017 [facility] Temperature Oral (F) 97.9 F 12/07/2017 [facility] Heart Rate 62 12/07/2017 [facility] Respitory Rate 19 12/07/2017 [facility] Systolic (mm Hg) 121 12/07/2017 [facility] Diastolic (mm Hg) 70 12/07/2017 [facility] Systolic (mm Hg) 113 12/07/2017 [facility] Diastolic (mm Hg) 72 12/07/2017 [facility] Respitory Rate 20 12/07/2017 [facility] Heart Rate 58 12/07/2017 [facility] Temperature Oral (F) 97.8 F 12/07/2017 [facility] Weight 109.09 12/07/2017 [facility] Systolic (mm Hg) 119 12/07/2017 [facility] Diastolic (mm Hg) 74 12/07/2017 [facility] Respitory Rate 19 12/07/2017 [facility] Heart Rate 57 12/07/2017 [facility] Temperature Oral (F) 98 F 12/07/2017 [facility] Height 175.26 cm 12/07/2017 [facility] Weight 109.091 12/07/2017 [facility] BMI Calculated 35.52 12/07/2017 [facility] Weight 113.636 12/06/2017 [facility] BMI Calculated 37 12/06/2017 [facility] Height 175.26 cm 12/06/2017 [facility] Respitory Rate 20 10/16/2017 [facility] Systolic (mm Hg) 116 10/16/2017 [facility] Diastolic (mm Hg) 65 10/16/2017 [facility] Respitory Rate 13 10/16/2017 [facility] Temperature Oral (F) 98.2 F 10/16/2017 [facility] Respitory Rate 27 10/16/2017 [facility] Systolic (mm Hg) 116 10/16/2017 [facility] Diastolic (mm Hg) 64 10/16/2017 [facility] Systolic (mm Hg) 123 10/16/2017 [facility] Diastolic (mm Hg) 68 10/16/2017 [facility] Temperature Oral (F) 97.7 F 10/16/2017 [facility] Heart Rate 62 10/16/2017 [facility] Heart Rate 76 10/16/2017 [facility] Temperature Oral (F) 98.9 F 10/16/2017 [facility] Heart Rate 78 10/16/2017 [facility] Weight 113.636 10/16/2017 [facility] Height 175.26 cm 10/16/2017 [facility] BMI Calculated 37 10/16/2017 [facility] Respitory Rate 18 07/04/2016 [facility] Systolic (mm Hg) 116 07/03/2016 [facility] Diastolic (mm Hg) 68 07/03/2016 [facility] Temperature Oral (F) 98.1 F 07/03/2016 [facility] Heart Rate 88 07/03/2016 [facility] Respitory Rate 20 07/03/2016 [facility] Temperature Oral (F) 97.9 F 07/03/2016 [facility] Systolic (mm Hg) 131 07/03/2016 [facility] Diastolic (mm Hg) 80 07/03/2016 [facility] Respitory Rate 20 07/03/2016 [facility] Heart Rate 99 07/03/2016 [facility] Systolic (mm Hg) 109 07/03/2016 [facility] Diastolic (mm Hg) 78 07/03/2016 [facility] Heart Rate 110 07/03/2016 [facility] Temperature Oral (F) 98.0 F 07/03/2016 [facility] Weight 115 07/02/2016 [facility] Height 175.26 cm 07/02/2016 [facility] BMI Calculated 37.44 07/02/2016 [facility] Height 175.26 cm 07/02/2016 [facility] Weight 109.091 07/02/2016 [facility] BMI Calculated 35.52 07/02/2016 [facility] Respitory Rate 18 04/11/2016 [facility] Heart Rate 89 04/11/2016 [facility] Systolic (mm Hg) 124 04/11/2016 [facility] Diastolic (mm Hg) 74 04/11/2016 [facility] Temperature Oral (F) 98.1 F 04/11/2016 [facility] Respitory Rate 20 04/11/2016 [facility] Heart Rate 96 04/11/2016 [facility] Systolic (mm Hg) 133 04/11/2016 [facility] Diastolic (mm Hg) 82 04/11/2016 [facility] Temperature Oral (F) 97.7 F 04/11/2016 [facility] Height 175.26 cm 04/11/2016 [facility] BMI Calculated 37.59 04/11/2016 [facility] Weight 115.455 04/11/2016 [facility] Weight 111.477 03/21/2016 [facility] Systolic (mm Hg) 103 03/21/2016 [facility] Diastolic (mm Hg) 65 03/21/2016 [facility] Temperature Oral (F) 98.0 F 03/21/2016 [facility] Systolic (mm Hg) 99 03/21/2016 [facility] Diastolic (mm Hg) 66 03/21/2016 [facility] Respitory Rate 18 03/21/2016 [facility] Respitory Rate 18 03/21/2016 [facility] Temperature Oral (F) 97.7 F 03/21/2016 [facility] Systolic (mm Hg) 120 03/21/2016 [facility] Diastolic (mm Hg) 74 03/21/2016 [facility] Respitory Rate 16 03/21/2016 [facility] Temperature Oral (F) 97.6 F 03/21/2016 [facility] BMI Calculated 36.7 03/20/2016 [facility] Weight 112.727 03/20/2016 [facility] Height 175.26 cm 03/20/2016 [facility] Heart Rate 82 03/20/2016 [facility] BMI Calculated 36.4 03/20/2016 [facility] Weight 111.818 03/20/2016 [facility] Height 175.26 cm 03/20/2016 [facility] Heart Rate 95 03/20/2016 [facility] Height 175.26 cm 03/09/2016 [facility] BMI Calculated 36.4 03/09/2016 [facility] Weight 111.818 03/09/2016 [facility] Respitory Rate 16 02/08/2016 [facility] Systolic (mm Hg) 110 02/08/2016 [facility] Diastolic (mm Hg) 70 02/08/2016 [facility] Heart Rate 72 02/08/2016 [facility] Temperature Oral (F) 97.8 F 02/08/2016 [facility] Temperature Oral (F) 98.2 F 02/08/2016 [facility] Heart Rate 75 02/08/2016 [facility] Respitory Rate 16 02/08/2016 [facility] Systolic (mm Hg) 110 02/08/2016 [facility] Diastolic (mm Hg) 68 02/08/2016 [facility] Respitory Rate 18 02/08/2016 [facility] Heart Rate 82 02/08/2016 [facility] Temperature Oral (F) 98.2 F 02/08/2016 [facility] Systolic (mm Hg) 102 02/08/2016 [facility] Diastolic (mm Hg) 65 02/08/2016 [facility] BMI Calculated 37.47 02/04/2016 [facility] Weight 115.09 02/04/2016 [facility] Height 175.26 cm 02/04/2016 [facility] Height 175.26 cm 02/04/2016 [facility] Weight 115.909 02/04/2016 [facility] BMI Calculated 37.74 02/04/2016 [facility] Weight 113.636 07/28/2012 [facility] Height 175.26 cm 07/28/2012 [facility] Systolic (mm Hg) 155.0 05/16/2011 [facility] Diastolic (mm Hg) 97.0 05/16/2011 [facility] Heart Rate 85.0 05/16/2011 [facility] Temperature Oral (F) 97.9 F 05/16/2011 [facility] Respitory Rate 18.0 05/16/2011 [facility] Height 175.26 cm 05/15/2011 [facility] Weight 118.182 05/15/2011 [facility] Respitory Rate 18.0 05/15/2011 [facility] Heart Rate 89.0 05/15/2011 [facility] Systolic (mm Hg) 140.0 05/15/2011 [facility] Diastolic (mm Hg) 83.0 05/15/2011 [facility] Temperature Oral (F) 98.4 F 05/15/2011 [facility] Encounters Location Location Details Encounter Type Encounter Number Reason For Visit Attending Provider ADM Date DC Date Status Source [facility] Emergency [id number] ROSANNA SCALES 05/15/2011 05/15/2011 Discharged [facility] Emergency [id number] VLADIMIR TELLO 07/28/2012 07/29/2012 Discharged [facility] Inpatient [id number] Mike Enrique 02/04/2016 02/08/2016 [facility] [place] [facility] Diag Services [id number] Nadia Amanda 03/03/2016 03/04/2016 [facility] [id number] Nadia Arellano 03/08/2016 03/09/2016 [facility] Outpatient [id number] Nadia Arellano 03/09/2016 03/10/2016 [facility] Observation [id number] Maxx Donis 03/20/2016 03/21/2016 [facility] Emergency [id number] Susannah Woods 04/11/2016 04/11/2016 [facility] Inpatient [id number] Nadia Mooneyqui 07/02/2016 07/04/2016 [facility] Emergency [id number] Licha Reillyanter 10/16/2017 10/16/2017 [facility] Observation [id number] Alex Coto 12/06/2017 12/07/2017 [facility] Inpatient [id number] Jesus Rangel 12/12/2017 12/15/2017 [facility] Inpatient [id number] Jose Angel Hogue 01/07/2018 01/22/2018 [facility] Pre-Reg [id number] Daiana Almonte 01/30/2018 01/30/2018 [facility] Emergency [id number] Jese Wolfe 03/24/2018 03/24/2018 [facility] Travel [id number] 07/04/2018 [facility] Office Visit [id number] Rhonda Crooks MD 07/04/2018 07/04/2018 [facility] Encounter [id number] Rhonda Crooks MD 07/04/2018 07/05/2018 [facility] E-Consult [id number] Zac CarrCA 07/10/2018 [facility] Orders Only [id number] Rhonda Crooks MD 07/11/2018 [facility] Orders Only [id number] Rhonda Crooks MD 07/20/2018 [facility] Oral Surgery Clinic Telephone [id number] Frida Andres 08/08/2018 [facility] CUSTOMER RELATIONS SERVICES Telephone [id number] Reba Grullon 08/08/2018 [facility] Travel [id number] 08/08/2018 [facility] Office Visit [id number] Neptali Hearn SERVICE TEAM LEADER 08/08/2018 08/08/2018 [facility] CLINICAL CASE MGMT Clinical Case Mgt [id number] Rosangela Ramos 08/27/2018 [facility] Travel [id number] 09/05/2018 [facility] Office Visit [id number] Neptali Hearn SERVICE TEAM LEADER 09/05/2018 09/05/2018 [facility] Travel [id number] 11/01/2018 [facility] CUSTOMER RELATIONS SERVICES Telephone [id number] Carissa Garcia 11/01/2018 [facility] Rheumatology [facility] [place] Orders Only [id number] Junior Arreola() 11/01/2018 [facility] [place] Office Visit [id number] Maxx Mohr MD 11/01/2018 11/01/2018 [facility] Diagnostic Radiology [place] Ancillary Procedure [id number] 11/01/2018 11/01/2018 [facility] [place] Ancillary Procedure [id number] 11/01/2018 11/01/2018 [facility] Office Visit [id number] Rhonda Crooks MD 11/23/2018 11/23/2018 [facility] Travel [id number] 12/03/2018 [facility] Travel [id number] 12/26/2018 [facility] Office Visit [id number] Bettye Ferreiar MD 12/26/2018 12/26/2018 [facility] Procedures Procedure Code Date Perfomer Comments Source CBC/DIFF [id number] 12/03/2018 [facility] COMPREHENSIVE METABOLIC PANEL 05704 12/03/2018 [facility] CBC 154277 12/03/2018 [facility] DIFFERENTIAL, MANUAL 24073 12/03/2018 [facility] XRAY HAND 2 VIEWS 05911 11/01/2018 [facility] XRAY FOOT 2 VIEWS MIN 93756 11/01/2018 [facility] [address] 11/01/2018 [facility] CBC/DIFF 82748 11/01/2018 [facility] COMPREHENSIVE METABOLIC PANEL(DBIL NOT INCLUDED) 99741 11/01/2018 [facility] SANDY 10315 11/01/2018 [facility] COMPLEMENT C3 15060 11/01/2018 [facility] COMPLEMENT C4 47596 11/01/2018 [facility] HEPATITIS PANEL 41122 11/01/2018 [facility] QUANTIFERON TB GOLD 012400 11/01/2018 [facility] QUANTIFERON TB GOLD 082295 11/01/2018 [facility] COMPREHENSIVE METABOLIC PANEL 21975 11/01/2018 [facility] UA CHEMISTRIES 79823 11/01/2018 [facility] T PROT/CREA RATIO,UR 05815 11/01/2018 [facility] URINALYSIS 95126 11/01/2018 [facility] TOTAL PROTEIN/CREATININE RATIO, URINE 34955 11/01/2018 [facility] RA FACTOR 12471 07/05/2018 [facility] CRP, HIGH SENS 83045 07/05/2018 [facility] SED RATE 89326 07/05/2018 [facility] CBC/DIFF 79827 07/05/2018 [facility] COMPREHENSIVE METABOLIC PANEL(DBIL NOT INCLUDED) 93643 07/05/2018 [facility] CCP IGG ABS 08430 07/05/2018 [facility] C-REACTIVE PROTEIN HIGH SENSITIVITY (CRP-HS) 91052 07/05/2018 [facility] COMPREHENSIVE METABOLIC PANEL 16786 07/05/2018 [facility] Closed reduction of dislocation of shoulder [id number] [facility] Closed reduction of dislocation of shoulder [id number] [facility] Assessment and Plan Assessment and Plan Date Source Extracted from:Title: Clinical Document Author: Tomás Hart MD Date: 01/22/18 Progress Note Cardiology [facility] Impression: New onset atrial fibrillation with RVR Pneumonia acute hypoxemic respiratory failure 2/2 vocal cord dysfunction s/p tracheostomy Chronic diastolic heart failure Obstructive sleep apnea Tachycardia Plan: Continue amiodarone On Xarelto Primary team discharging patient today Please call if any questions Subjective: Patient seen and examined. No chest pain or trouble breathing. Wants to go home. No bleeding. No palpitations. No edema. No fever. Objective: Telemetry Vitals Tmp(F) Pulse BP RR SpO2 FIO2 01/22 11:42 99.3 82 95/67 18 98 --- 01/22 10:53 ---- --- ----- -- 98 --- 01/22 10:50 ---- --- ----- 12 98 --- 01/22 10:49 ---- --- ----- -- 98 --- 01/22 08:05 98.3 69 107/65 18 99 --- 24 Hr Tmax: 99.3F (37.39c) at 01/22 11:42 Vital Signs are the last 5 in the past 48 hours. Gen: Alert, trach Neck: No JVD Lungs: Decreased at the bases Heart: normal S1, S2; no gallop Abd: Soft, nt, nd, +bs Ext: No edema Neuro: No focal deficits Skin: warm, moist Labs (Last four charted values) WBC H 17.5 (JAN 19) H 17.3 (JAN 16) H 20.6 (JAN 15) H 21.3 (JAN 14) Hgb L 10.6 (JAN 19) L 10.3 (JAN 16) L 11.5 (JAN 15) L 11.7 (JAN 14) Hct L 34.1 (JAN 19) L 33.0 (JAN 16) L 36.0 (JAN 15) L 36.1 (JAN 14) Plt 336 (JAN 19) 245 (JAN 16) 258 (JAN 15) 226 (JAN 14) Na 136 (JAN 19) 136 (JAN 16) 135 (JAN 15) 136 (JAN 14) K 4.0 (JAN 19) 3.8 (JAN 16) 4.2 (JAN 15) 3.9 (JAN 14) CO2 L 23 (JAN 19) 28 (JAN 16) 30 (JAN 15) 29 (JAN 14) Cl 104 (JAN 19) 100 (JAN 16) 100 (JAN 15) 98 (JAN 14) Cr 0.72 (JAN 19) 0.69 (JAN 16) 0.71 (JAN 15) 0.79 (JAN 14) BUN 9 (JAN 19) 12 (JAN 16) 15 (JAN 15) 16 (JAN 14) Glucose Random 86 (JAN 19) H 133 (JAN 16) H 148 (JAN 15) 95 (JAN 14) Mg 2.3 (JAN 13) H 2.5 (JAN 12) H 2.5 (JAN 11) H 2.5 (JAN 10) Phos 3.5 (JAN 13) 3.6 (JAN 12) 2.8 (JAN 11) 3.6 (JAN 10) Ca L 7.7 (JAN 19) L 8.4 (JAN 16) 8.7 (JAN 15) 8.7 (JAN 14) Troponin <0.02 (JAN 15) <0.02 (JAN 15) <0.02 (JAN 07) CK MB <1.0 (JAN 15) 2.8 (JAN 07) Total CK 27 (JAN 15) 28 (JAN 15) 96 (JAN 07) Scheduled Meds (8): 01/20/18 AMIODarone 200 mg PO Daily 01/12/18 furosemide (furosemide 20 mg oral tablet) 20 mg PO Daily 01/19/18 guaiFENesin (Mucinex) 600 mg PO Q12H 01/08/18 leflunomide 10 mg PO Bedtime 01/20/18 levofloxacin (Levaquin) 750 mg PO [id number] 01/16/18 pantoprazole (Protonix) 40 mg PO BID-Before Meals 01/16/18 rivaroxaban (Xarelto) 20 mg PO QPM 01/14/18 sertraline (Zoloft) 25 mg PO Bedtime Continuous Infusions: None Extracted from:Title: Clinical Document Author: Jose Angel Hogue MD Date: 01/22/18 Date of admission: 01/07/2018 Date of discharge: 01/22/2018 Discharge diagnoses 1. Acute hypoxic respiratory failure secondary to vocal cord paralysis needing tracheostomy placement 2. Acute hypoxic respiratory failure on mechanical ventilation 3. Pseudomonas pneumonia 4. New onset atrial fibrillation with RVR 5. Obstructive sleep apnea Hospital course Patient is a 52-year-old man who came in with shortness of breath and was intubated needing ICU admission. Patient was found to have Pseudomonas pneumonia and ID was consulted. On arrival he did have stridor and was found to have vocal cord paralysis as dysfunction therefore needed laryngoscopy and tracheostomy on 01/10. Completing the course has been new onset atrial fibrillation for which cardiology was consulted and patient will continue amiodarone as outpatient. For Pseudomonas she will be treated with Levaquin. His QTC is in the low 400 range. Patient will follow-up with cardiology within the next few days of being discharged to make sure that the QTC is not prolonged being on amiodarone and Levaquin. Patient seen and examined on the day of discharge. Vitals at the time of discharge are temperature 94.4, blood pressure 107/67, heart rate 75, 98% on room air. Discharge was delayed over the weekend as home health have not been set. Patient to be discharged on 01/22, case discussed with nursing staff and case management is aware of home health issue. Discharge condition fair Discharge home Please see discharge medicine form. Activity as tolerated Follow-up with infectious disease, cardiology, ENT, pulmonary services, and primary care physician. Extracted from:Title: Clinical Document Author: Pk Coleman MD Date: 01/21/18 Patient seen, report dictated 01/22/2018 Jazmyn Extracted from:Title: Discharge Summary * Author: Jesus Rangel MD Date: 12/15/17 Patient: SANDY RIOJAS Age: 52 years Sex: Male : 1965 Associated Diagnoses: None Author: Jesus Rangel MD Results Review General results Labs (Last four charted values) WBC H 16.1 (VARGAS 22) H 26.1 (VARGAS 21) H 20.9 (VARGAS 20) H 23.4 (VARGAS 18) Hgb L 8.5 (VARGAS 22) L 8.5 (VARGAS 21) L 10.0 (VARGAS 20) L 10.5 (VARGAS 20) Hct L 25.5 (VARGAS 22) L 25.6 (VARGAS 21) L 29.9 (VARGAS 20) L 31.6 (VARGAS 20) Plt 262 (VARGAS 22) 241 (VARGAS 21) 215 (VARGAS 20) 206 (VARGAS 18) Na 143 (VARGAS 22) 143 (VARGAS 21) 136 (VARGAS 20) 140 (VARGAS 18) K 3.7 (VARGAS 22) 4.4 (VARGAS 21) 4.8 (VARGAS 20) 4.5 (AVRGAS 19) CO2 H 34 (VARGAS 22) 31 (VARGAS 21) 31 (VARGAS 20) 28 (VARGAS 18) Cl 105 (VARGAS 22) 103 (VARGAS 21) 101 (VARGAS 20) 107 (VARGAS 18) Cr 0.78 (VARGAS 22) 0.60 (VARGAS 21) 0.60 (VARGAS 20) 0.74 (VARGAS 18) BUN 15 (VARGAS 22) 15 (VARGAS 21) 13 (VARGAS 20) H 35 (VARGAS 18) Glucose Random 73 (VARGAS 22) H 122 (VARGAS 21) H 144 (VARGAS 20) 95 (VARGAS 18) Mg 2.3 (VARGAS 22) 2.1 (VARGAS 21) 1.9 (VARGAS 20) 1.8 (VARGAS 18) Phos 3.6 (VARGAS 22) L 2.2 (VARGAS 21) 3.8 (VARGAS 20) 3.1 (VARGAS 19) Ca L 8.1 (VARGAS 22) 8.8 (VARGAS 21) L 8.4 (VARGAS 20) L 7.5 (VARGAS 18) PT 14.0 (VARGAS 19) INR 1.08 (VARGAS 19) PTT 30.7 (VARGAS 19) Troponin <0.02 (VARGAS 18) CK MB 1.7 (VARGAS 18) Total CK 46 (VARGAS 18) Final discharge diagnoses: 1. Acute GI bleed status post EGD with erosive esophagitis and duodenitis 2. Bilateral vocal cord dysfunction with stridor and TVC paralysis 3. Anemia secondary to chronic disease and GI bleed 4. Rheumatoid arthritis 5. Steroid-induced leukocytosis 6. Biopsy-proven H pylori Consultants: ENT, pulmonary critical care, GI Discharge Information Disposition to home Condition stable Medications: See med reconciliation form Diet: Heart healthy Physical Examination VS/Measurements Vital Signs (last 24 hrs) Last Charted Temp Oral 98.1 DegF (DEC 15:) Heart Rate Peripheral 83 bpm (DEC 15:) Resp Rate 18 BRMIN (DEC 15:) SBP 90 mmHg (DEC 15:) DBP L 53mmHg (DEC 15) SpO2 99 % (DEC 15:) General: Alert and oriented, No acute distress. Eye: Pupils are equal, round and reactive to light, Extraocular movements are intact, Normal conjunctiva. HENT: Normocephalic, Oral mucosa is moist. Neck: Supple, Non-tender, No jugular venous distention. Respiratory: Lungs are clear to auscultation, Respirations are non-labored, Breath sounds are equal. Cardiovascular: Normal rate, Regular rhythm, No murmur. Gastrointestinal: Soft, Non-tender, Non-distended, Normal bowel sounds. Genitourinary: No costovertebral angle tenderness. Musculoskeletal Normal range of motion. Normal strength. Integumentary: Warm, Dry. Neurologic: Alert, Oriented. Cognition and Speech: Oriented, Speech clear and coherent. Psychiatric: Cooperative, Appropriate mood and affect. Chest x-ray: IMPRESSION: Airspace disease/atelectasis at the right base. Small to moderate right and small left pleural effusions. CT neck: IMPRESSION: Unremarkable postcontrast CT examination of the neck. Right apical pleural thickening versus loculated effusion MRI of the brain with and without contrast: IMPRESSION: No evidence of acute infarction, intracranial hemorrhage, intracranial mass lesion or hydrocephalus. Pathology report: Diagnosis 1. Duodenal biopsy: - Minute fragment of markedly distorted tissue. Tissue insufficient for diagnosis. - Some of the tissue may not survived processing. 2. Gastric biopsy, rule out Helicobacter pylori: - Fundic type gastric mucosa showing mild chronic active superficial gastritis and superficial mucosal erosion. - Warthin-Starry special stain shows few organisms consistent with Helicobacter pylori. Hospital Course 52-year-old male who came into the ED with underlying GI bleed and an underlying stridor. Patient was admitted under ICU care patient was started on IV steroids due to the stridor. Patient had a status post EGD that showed evidence of erosive esophagitis and duodenitis and started on Protonix. Pathology was consistent with H pylori and will be discharged on oral amoxicillin clindamycin and PPIs for 10 total days. He also be discharged on oral Carafate. He has been cleared by GI for discharge. ENT was consulted for the underlying stridor in which she was felt to be that the patient has bilateral vocal cord dysfunction with TVC paralysis. Patient did not make up his mind about which intervention he wants at this time ENT cleared patient for discharge home which he can follow-up as an outpatient his office for further management and care. Patient has been cleared by both consultants for discharge home. On the day of discharge vital signs stable, largely stable. Patient seen and evaluated examined thoroughly in the division other complaints. Patient verbalized understanding and agreed to plan of care to follow-up accordingly as an outpatient with his primary care physician in 1 week. Patient is to follow-up with ENT and GI in 2 weeks. Discharge Plan In the event of any worsening symptom patient was to come back to the ED for further evaluation Discharge summary to greater than 35 minutes Addendum by Jesus Rangel MD on 12/15/2017 22:37 Steroid-induced leukocytosis Extracted from:Title: General Admission H&P * Author: Jesus Rangel MD Date: 12/14/17 Patient: SANDY RIOJAS Age: 52 years Sex: Male : 1965 Associated Diagnoses: None Author: Jesus Rangel MD Chief Complaint Transfer from ICU due to stridor History of Present Illness 52-year-old male who came in to the ED with underlying GI bleed and admitted to the ICU due to underlying stridor. Patient had a status post EGD that showed erosive esophagitis. Patient also had some underlying stridor in which ENT was consulted and felt to be from bilateral vocal cord dysfunction. Patient has underlying rheumatoid arthritis as well likely leading to this etiology of vocal cord dysfunction. Patient was on IV steroids. Patient improved throughout the ICU stay and transfer to the medical floor for further management and care. Her ENT the patient can follow-up as an outpatient once he has discussed this with his family thoroughly. Patient's hemoglobin maintained stable while here. Patient seen and evaluated at bedside on the medical floor currently doing well with no other complaints. Review of Systems Pertinent positive: GI bleed, vocal cord dysfunction Pertinent negative: Denies any chest pain palpitations nausea vomiting diarrhea dysuria hematuria frequency urgency lightheadedness dizziness abdominal pain headache or any other complaints The rest of 14 point review systems are reviewed patient and are negative Health Status Allergies: Allergic Reactions (Selected) Severity Not Documented NKDA- No reactions were documented., Allergies (1) Active Reaction NKDA None Documented Current medications: (Selected) Inpatient Medications Ordered Protonix: 40 mg, 1 tab, PO, BID amoxicillin: 1,000 mg, 2 cap, PO, BID calcium carbonate 500 mg (200 mg elemental calcium) oral tablet: 1,000 mg, 2 tab, PO, PRN, PRN: Abnormal Lab Result calcium carbonate 500 mg (200 mg elemental calcium) oral tablet: 500 mg, 1 tab, PO, PRN, PRN: Abnormal Lab Result calcium gluconate: 1 gm, 50 mL, 100 ml/hr, IVPB, PRN, PRN: Abnormal Lab Result clarithromycin: 500 mg, 2 tab, PO, BID magnesium oxide: 800 mg, 2 tab, PO, PRN, PRN: Abnormal Lab Result magnesium sulfate: 2 gm, 50 mL, 25 ml/hr, IVPB, PRN, PRN: Abnormal Lab Result potassium chloride + Sodium Chloride 0.9% IV 90 mL: 20 mEq, 10 mL, 50 ml/hr, IVPB, PRN, PRN: Abnormal Lab Result potassium chloride + Sodium Chloride 0.9% IV 95 mL: 10 mEq, 5 mL, 100 ml/hr, IVPB, PRN, PRN: Abnormal Lab Result potassium chloride: 20 mEq, 1 tab, PO, PRN, PRN: Abnormal Lab Result potassium chloride: 20 mEq, 15 mL, NJ, PRN, PRN: Abnormal Lab Result potassium phosphate + Sodium Chloride 0.9% IV 250 mL: 15 mmol, 5 mL, 62.5 ml/hr, IVPB, PRN, PRN: Abnormal Lab Result potassium phosphate + Sodium Chloride 0.9% IV 250 mL: 30 mmol, 10 mL, 62.5 ml/hr, IVPB, PRN, PRN: Abnormal Lab Result potassium phosphate + Sodium Chloride 0.9% IV 250 mL: 45 mmol, 15 mL, 62.5 ml/hr, IVPB, PRN, PRN: Abnormal Lab Result potassium phosphate-sodium phosphate 250 mg-280 mg-160 mg oral powder for reconstitution: 2 pkt, PO, PRN, PRN: Abnormal Lab Result sodium phosphate + Dextrose 5% in Water IV 250 mL: 15 mmol, 5 mL, 62.5 ml/hr, IVPB, PRN, PRN: Abnormal Lab Result sodium phosphate + Dextrose 5% in Water IV 250 mL: 30 mmol, 10 mL, 62.5 ml/hr, IVPB, PRN, PRN: Abnormal Lab Result sodium phosphate + Dextrose 5% in Water IV 250 mL: 45 mmol, 15 mL, 62.5 ml/hr, IVPB, PRN, PRN: Abnormal Lab Result sucralfate: 1 gm, 1 tab, PO, QID tramadol 50 mg oral tablet: 50 mg, 1 tab, PO, Q4H, PRN: Pain Score 4-6 Prescriptions Suspended MethylPREDNISolone Dose Pack 4 mg oral tablet: See Instructions, PO, Daily, for 6 day, Use as directed on label., 1 Pack, 0 Refill(s) albuterol 90 mcg/inh inhalation aerosol: 2 puff, INHALATION, QID, 17 gm, 0 Refill(s) Documented Medications Suspended tramadol: 50 mg, PO, Q4H, for 4 day, PRN: Pain Score 4-6, 20 tab, 0 Refill(s), Medications (21) Active Scheduled: (4) amoxicillin 500 mg CAP 1,000 mg 2 cap, PO, BID clarithromycin 250 mg TAB 500 mg 2 tab, PO, BID pantoprazole 40 mg ECT 40 mg 1 tab, PO, BID sucralfate 1 gm TAB 1 gm 1 tab, PO, QID Continuous: (0) PRN: (17) calcium carbonate 500 mg (200 mg elemental) CHEW 500 mg 1 tab, PO, PRN calcium carbonate 500 mg (200 mg elemental) CHEW 1,000 mg 2 tab, PO, PRN calcium gluconate 1gm/ NS 50 ml premix 1 gm 50 mL, IVPB, PRN magnesium oxide (242 mg elemental) tab 800 mg 2 tab, PO, PRN magnesium sulfate 2 gm/H20 50ml soln 2 gm 50 mL, IVPB, PRN potassium chloride 20 mEq ERT 20 mEq 1 tab, PO, PRN potassium chloride 20mEq/15ml LIQ ud 20 mEq 15 mL, NJ, PRN potassium chloride 2mEq/1ml 20ml VL + sodium chloride 0.9% INJ 90 mL 20 mEq 10 mL, IVPB, PRN potassium chloride 2mEq/1ml 20ml VL + sodium chloride 0.9% INJ 95 mL 10 mEq 5 mL, IVPB, PRN potassium phosphate 3mmol/1ml 15ml VL + sodium chloride 0.9% INJ 250 mL 15 mmol 5 mL, IVPB, PRN potassium phosphate 3mmol/1ml 15ml VL + sodium chloride 0.9% INJ 250 mL 30 mmol 10 mL, IVPB, PRN potassium phosphate 3mmol/1ml 15ml VL + sodium chloride 0.9% INJ 250 mL 45 mmol 15 mL, IVPB, PRN potassium phosphate-sodium phosphate 1.5 gm pkt 2 pkt, PO, PRN sodium phosphate 3 mmol/1 ml 15 ml vial + D5W 250 mL 15 mmol 5 mL, IVPB, PRN sodium phosphate 3 mmol/1 ml 15 ml vial + D5W 250 mL 30 mmol 10 mL, IVPB, PRN sodium phosphate 3 mmol/1 ml 15 ml vial + D5W 250 mL 45 mmol 15 mL, IVPB, PRN traMADol 50 mg TAB 50 mg 1 tab, PO, Q4H Problem list: No qualifying data available Histories Past Medical History: Resolved Rheumatoid arthritis ([id number]): Resolved. Pleural effusion ([id number]): Resolved. Family History: Hypertension Mother Heart disease Father Procedure history: Closed reduction of dislocation of shoulder ([id number]). Social History Social and Psychosocial Habits Alcohol 12/06/2017 Use: Past Type: Beer, Liquor Substance Abuse 12/06/2017 Use: None Tobacco 03/20/2016 Use: Current every day smoker Type: Cigarettes Number of years: 38 Started [age] age: 12.0 Years Previous treatment: None Ready to change: Yes Concerns about tobacco use in household: No Exposure to Tobacco Smoke Lives with someone who sm Cigarette Smoking Last 365 Days Yes Reg Smoking Cessation Counseling No 04/11/2016 Use: Current every day smoker Type: Cigarettes Ready to change: No Concerns about tobacco use in household: Yes Exposure to Tobacco Smoke Lives with someone who sm Cigarette Smoking Last 365 Days Yes Reg Smoking Cessation Counseling No 12/12/2017 Use: Current every day smoker Type: Cigarettes Exposure to Tobacco Smoke None Cigarette Smoking Last 365 Days No Reg Smoking Cessation Counseling Yes . Physical Examination VS/Measurements Vital Signs (last 24 hrs) Last Charted Temp Oral 98.0 DegF (DEC 14 15:05) Heart Rate Peripheral 71 bpm (DEC 14:) Resp Rate 18 BRMIN (DEC 14:) SBP 113 mmHg (DEC 14:) DBP 70 mmHg (DEC 14:) SpO2 98 % (DEC 14:) Intake and Output I/O Intake Output Balance 12/14/2017 7a-3p 360.00 0.00 360.00 3p-11p 140.00 0.00 140.00 As of 18:35 11p-7a 0.00 0.00 0.00 Totals 500.00 0.00 500.00 12/13/2017 7a-3p 241.00 500.00 -259.00 3p-11p 0.00 400.00 -400.00 11p-7a 0.00 0.00 0.00 Totals 241.00 900.00 -659.00 12/12/2017 7a-3p 122.67 0.00 122.67 3p-11p 11.00 720.00 -709.00 11p-7a 1.00 0.00 1.00 Totals 134.67 720.00 -585.33 General: Alert and oriented, No acute distress. Eye: Pupils are equal, round and reactive to light, Extraocular movements are intact, Normal conjunctiva. HENT: Normocephalic, Oral mucosa is moist. Neck: Supple, Non-tender, No jugular venous distention. Respiratory: Lungs are clear to auscultation, Respirations are non-labored, Breath sounds are equal. Cardiovascular: Normal rate, Regular rhythm, No murmur. Gastrointestinal: Soft, Non-tender, Non-distended, Normal bowel sounds. Genitourinary: No costovertebral angle tenderness. Musculoskeletal Normal range of motion. Normal strength. Integumentary: Warm, Dry. Neurologic: Alert, Oriented. Cognition and Speech: Oriented, Speech clear and coherent. Psychiatric: Cooperative, Appropriate mood and affect. Review / Management Results review: Labs (Last four charted values) WBC H 26.1 (DEC 14) H 20.9 (VARGAS 20) H 23.4 (VARGAS 18) Hgb L 8.5 (VARGAS 21) L 10.0 (VARGAS 20) L 10.5 (VARGAS 20) L 10.1 (VARGAS 19) Hct L 25.6 (VARGAS 21) L 29.9 (VARGAS 20) L 31.6 (VARGAS 20) L 30.7 (VARGAS 19) Plt 241 (VARGAS 21) 215 (VARGAS 20) 206 (VARGAS 18) Na 143 (VARGAS 21) 136 (VARGAS 20) 140 (VARGAS 18) K 4.4 (VARGAS 21) 4.8 (VARGAS 20) 4.5 (VARGAS 19) 3.8 (VARGAS 18) CO2 31 (VARGAS 21) 31 (VARGAS 20) 28 (VARGAS 18) Cl 103 (VARGAS 21) 101 (VARGAS 20) 107 (VARGAS 18) Cr 0.60 (VARGAS 21) 0.60 (VARGAS 20) 0.74 (VARAGS 18) BUN 15 (VARGAS 21) 13 (VARGAS 20) H 35 (VARGAS 18) Glucose Random H 122 (VARGAS 21) H 144 (VARGAS 20) 95 (VARGAS 18) Mg 2.1 (VARGAS 21) 1.9 (VARGAS 20) 1.8 (VARGAS 18) Phos L 2.2 (VARGAS 21) 3.8 (VARGAS 20) 3.1 (VARGAS 19) L 1.8 (VARGAS 18) Ca 8.8 (VARGAS 21) L 8.4 (VARGAS 20) L 7.5 (VARGAS 18) PT 14.0 (VARGAS 19) INR 1.08 (VARGAS 19) PTT 30.7 (VARAGS 19) Troponin <0.02 (VARGAS 18) CK MB 1.7 (VARGAS 18) Total CK 46 (VARGAS 18) . Chest x-ray: IMPRESSION: Airspace disease/atelectasis at the right base. Small to moderate right and small left pleural effusions. CT neck: IMPRESSION: Unremarkable postcontrast CT examination of the neck. Right apical pleural thickening versus loculated effusion MRI of the brain with and without contrast: IMPRESSION: No evidence of acute infarction, intracranial hemorrhage, intracranial mass lesion or hydrocephalus. Pathology report: Diagnosis 1. Duodenal biopsy: - Minute fragment of markedly distorted tissue. Tissue insufficient for diagnosis. - Some of the tissue may not survived processing. 2. Gastric biopsy, rule out Helicobacter pylori: - Fundic type gastric mucosa showing mild chronic active superficial gastritis and superficial mucosal erosion. - Warthin-Starry special stain shows few organisms consistent with Helicobacter pylori. Impression and Plan 1. Acute GI hemorrhage status post EGD with erosive esophagitis and duodenitis 2. Bilateral vocal cord dysfunction with stridor with TVC paralysis 3. Anemia secondary to chronic disease and GI bleed 4. Rheumatoid arthritis 5. Steroid-induced leukocytosis Plan: Stop steroids, ENT recommends outpatient follow-up with him in the office Protonix twice daily with Carafate Start on triple therapy for H. pylori: Amoxicillin 1 g p.o. twice daily, clarithromycin 500 mg p.o. twice daily as well as Protonix 40 mg p.o. twice daily for 10 total days, outpatient follow-up with GI Patient will likely be discharged home tomorrow Addendum by Jesus Rangel MD on 12/15/2017 22:33 Correction: Internal medicine consultation note Extracted from:Title: GI Author: Cherise Rodriguez NP Date: 12/14/17 Progress Note - Daily [facility] Completed: Nov, 15:24 by Cherise Rodriguez [employer]ICE [employer] LE[employer]ER RM: 137 - 2W, SE C1A RIOJAS, SANDY JARAMIL 52y (: 1965) M Attending: Jesus Rangel MD Service: Internal Medicine Reason for Admission: STRIDOR, GI BLEED Working DRG: Code status: None Specified=FULL CODE Current diet: Isolation: No Isolation/Standard Precautions Allergies: NKDA SUBJECTIVE no new complaints no n/v or abd pain OBJECTIVE 24hr Labs 12/14 0443 Glucose Lvl 122 H BUN 15 Creatinine Lvl 0.60 Sodium Lvl 143 Potassium Lvl 4.4 Chloride Lvl 103 CO2 31 AGAP 13.4 Calcium Lvl 8.8 eGFR 116 Magnesium Lvl 2.1 Phosphorus 2.2 L WBC 26.1 H RBC 2.85 L Hgb 8.5 L Hct 25.6 L MCV 90.1 MCH 29.7 MCHC 33.0 RDW 13.6 Platelet 241 MPV 8.6 Segs 88.1 H Monocytes 6.9 Lymphocytes 5.0 L Segs-Bands # 23.0 H Lymphocytes # 1.3 Monocytes # 1.8 H Pascual still necessary (Yes/No): Line still necessary (Yes/No): Vitals Tmp(F) Pulse BP RR SpO2 FIO2 12/14 12:24 98.6 76 104/67 18 96 --- 12/14 10:04 ---- --- ----- 18 98 1.0L/m 12/14 07:23 98.6 84 99/57 18 96 --- 12/14 04:42 98.1 70 101/57 18 98 --- 12/14 01:26 98.2 101 152/85 18 99 --- 24 Hr Tmax: 98.6F (37.00c) at 12/14 12:24 Vital Signs are the last 5 in the past 48 hours. Date Wt(kg) Wt(lb) Ht(cm) Ht(in) Method 12/12 107.20 235.84 Measured 12/11 (initial) 113.64 250.00 Estimated 12/11 175.26 69.00 Stated I&O Record In Out Bal 12/14 24hr Tot 360 0 360 12/13 24hr Tot 241 900 -659 Medications (22) Active Scheduled Meds (5): 12/14/17 amoxicillin 1,000 mg PO BID 12/14/17 clarithromycin 500 mg PO BID 12/12/17 pantoprazole (Protonix) 40 mg IVP BID 12/14/17 pantoprazole (Protonix) 40 mg PO BID 12/12/17 sucralfate 1 gm PO QID Unscheduled Meds: None PRN Meds (17): 12/12/17 calcium carbonate (calcium carbonate 500 mg (200 mg elemental calcium) oral tablet) 500 mg PO PRN 12/12/17 calcium carbonate (calcium carbonate 500 mg (200 mg elemental calcium) oral tablet) 1,000 mg PO PRN 12/12/17 calcium gluconate 1 gm IVPB PRN 100 ml/hr 12/12/17 magnesium oxide 800 mg PO PRN 12/12/17 magnesium sulfate 2 gm IVPB PRN 25 ml/hr 12/12/17 potassium chloride + Sodium Chloride 0.9% IV 90 mL 20 mEq IVPB PRN 50 ml/hr 12/12/17 potassium chloride + Sodium Chloride 0.9% IV 95 mL 10 mEq IVPB PRN 100 ml/hr 12/12/17 potassium chloride 20 mEq PO PRN 12/12/17 potassium chloride 20 mEq NJ PRN 12/12/17 potassium phosphate + Sodium Chloride 0.9% IV 250 mL 15 mmol IVPB PRN 62.5 ml/hr 12/12/17 potassium phosphate + Sodium Chloride 0.9% IV 250 mL 30 mmol IVPB PRN 62.5 ml/hr 12/12/17 potassium phosphate + Sodium Chloride 0.9% IV 250 mL 45 mmol IVPB PRN 62.5 ml/hr 12/12/17 potassium phosphate-sodium phosphate (potassium phosphate-sodium phosphate 250 mg-280 mg-160 mg oral powder for reconstitution) 2 pkt PO PRN 12/12/17 sodium phosphate + Dextrose 5% in Water IV 250 mL 15 mmol IVPB PRN 62.5 ml/hr 12/12/17 sodium phosphate + Dextrose 5% in Water IV 250 mL 30 mmol IVPB PRN 62.5 ml/hr 12/12/17 sodium phosphate + Dextrose 5% in Water IV 250 mL 45 mmol IVPB PRN 62.5 ml/hr 12/12/17 tramadol (tramadol 50 mg oral tablet) 50 mg PO Q4H One Time Meds: None Continuous Infusions: None General: No acute distress. HENT: Normocephalic, Neck: Supple, Non-tender. Respiratory: Lungs are clear to auscultation, Respirations are mildly labored, + stridor Cardiovascular: Normal rate, Regular rhythm, No murmur, Gastrointestinal: Soft, Non-tender, Non-distended. Integumentary: Warm, Dry, [place]. Neurologic: Alert, Oriented x 3 Psychiatric: Cooperative, Appropriate mood and affect IMPRESSION 1. Coffee ground emesis with Melena and FOBT + stool -s/p EGD- Erosive Esophagitis, LA Grade D, Esophageal Ulcers, Non- Obstructing S Ring, Moderate Erosive Gastritis Mild Duodenitis Duodenal biopsy: Minute fragment of markedly distorted tissue. Tissue insufficient for diagnosis. Gastric biopsy: Fundic type gastric mucosa showing mild chronic active superficial gastritis and superficial mucosal erosion. + Helicobacter pylori. 2. Anemia due to blood loss- no further bleeding reported 4. Vocal cord dysfunction and stridor- ENT following 5. NSAID Use 6. + H pylori RECOMMENDATIONS 1. PPI BID and Carafate QID 2. Triple therapy for H pylori. Amoxicillin 1 g BID, Clarithromycin 500 mg BID, and PPI BID x 10 days 3. Monitor H/H, transfuse for hgb < 7 4. Monitor for recurrent acute GI bleeding 5. Advance diet as tolerated 6. Follow up in GI clinic in 1-2 weeks after d/c GI Attending I have examined the patient with the Nurse Practitioner and confirmed the essential components of history, physical examination, diagnosis and treatment plan. I agree with the patient's care as documented by the Nurse Practitioner. H pylori induced gastritis. Antibiotics for 10 days Breath tests in 3 months to confirm eridication Extracted from:Title: Clinical Document Author: Abdoulaye Fontanez MD Date: 12/12/17 Pulmonary Critical Care ICU Admission Note Attending: Daphnie Duarte DO Service: Internal Medicine Code status: None Specified=FULL CODE Reason for Admission: STRIDOR, GI BLEED Working DRG: Isolation: No Isolation/Standard Precautions Consulting Physicians: Stevo Grossman MD Office: Service: Otolaryngology Navneet Currie MD Office: Service: Gastroenterology Allergies: NKDA History of Present Illness: 52-year-old man with rheumatoid arthritis and rheumatoid associated pleural effusions bilaterally in the past returns to the ER secondary to shortness of breath and dark stools. The stools are described as black consistent with melena. He denies lightheadedness dizziness or abdominal pain. He did have an episode of hematemesis. He also states that he is having shortness of breath this is been going on for several weeks he has had some change in his voice over the previous several weeks as well. In the emergency department when he was asleep he was noted to be having abnormal noises, stridor, with inspiration. The ED physician examined the patients vocal cords with the bronchoscope and did not see abduction with inspiration, with either cord. He was also found to have a fall in his hemoglobin from 16 down to 11 g/dL over a 4 day. Past Medical History: Rheumatoid arthritis, pleural effusions bilateral secondary to rheumatoid arthritis. Past Surgical History: Thoracentesis Social History: He is he does not drink or do drugs. He did smoke in the past. Family History: Noncontributory ROS: He denies fevers chills night sweats weight loss. He admits to shortness of breath. He denies chest pain or palpitations. He denies rashes. He denies nausea vomiting diarrhea. He admits to black stool. Apparently according to the kids who were with him he did have an episode of vomiting black and bloody material. Medications (8) Active Scheduled Meds (1): 12/12/17 pantoprazole 40 mg IVP Q12H Unscheduled Meds: None PRN Meds (1): 12/11/17 sodium chloride (Saline Flush 0.9%) 10 mL IVP PRN One Time Meds (5): 12/12/17 (Ordered) azithromycin + Sodium Chloride 0.9% IV 250 mL 500 mg IVPB ONCE 166.67 ml/hr 12/11/17 (Ordered) benzocaine topical (Hurricaine) TOP ONCE 12/12/17 (Completed) cefTRIAXone 1 gm IVPB ONCE 12/11/17 (Completed) lidocaine (lidocaine 4% inhalation solution) 5 mL NEB ONCE 12/11/17 (Completed) pantoprazole (Protonix) 40 mg IVP ONCE Continuous Infusions (1): 12/12/17 pantoprazole 80 mg + Sodium Chloride 0.9% IV 100 mL 100 mL 10 ml/hr Vitals Tmp(F) Pulse BP RR SpO2 FIO2 12/12 01:54 ---- 109 111/66 17 98 2.0L/m 12/12 00:57 ---- --- ----- -- 97 2.0L/m 12/12 00:40 ---- 105 97/47 19 --- --- 12/12 00:24 ---- 101 122/63 19 97 --- 12/11 23:30 ---- --- ----- -- --- 2.0L/m 24 Hr Tmax: 97.7F (36.50c) at 12/11 21:06 Vital Signs are the last 5 in the past 48 hours. 12/12/2017 01:54 Oxygen Therapy Mode Nasal cannula SpO2 percent 98 12/11/2017 21:37 FIO2 (%) 21 Physical Examination: On exam this is an obese appearing male nondistressed. He is awake alert he is pleasant. Initially upon entering the room when he was asleep he did have a very loud stridor sound. When he wakes up it goes away and is nowhere near as audible. His head is normocephalic atraumatic his pupils round reactive his mucous murmurs are moist. His neck is supple stridor is heard at the base the neck. His chest is otherwise clear to auscultation and has symmetric expansion. His heart is a regular rate and rhythm without murmurs rubs or gallops. His abdomen is mildly obese soft nontender nondistended. His extremities have no cyanosis or clubbing there is some edema present some mild varicose veins present. Neurologically is awake alert nonfocal. Labs (Last four charted values) WBC H 23.4 (DEC 11) Hgb L 11.6 (DEC 11) Hct L 35.5 (DEC 11) Plt 206 (DEC 11) Na 140 (DEC 11) K 3.8 (DEC 11) CO2 28 (DEC 11) Cl 107 (DEC 11) Cr 0.74 (DEC 11) BUN H 35 (DEC 11) Glucose Random 95 (DEC 11) Mg 1.8 (DEC 11) Phos L 1.8 (DEC 11) Ca L 7.5 (DEC 11) Troponin <0.02 (DEC 11) CK MB 1.7 (DEC 11) Total CK 46 (DEC 11) Other reviewed data: His electrolytes are unremarkable. His creatinine is 0.74 but his BUN is 35 it was 8 on the . Glucose is 95 albumin is 2.4 calcium 7.5 phosphorus 1.8 AST ALT bilirubin and alkaline phosphatase are normal cardiac enzymes including B natruretic peptide are normal. His white count is elevated at 23,000, hemoglobin hematocrit are 11.6 and 35% respectively again this is reduced from 16 and 48% on 07 December. His platelets 206,000. His occult blood positive. His chest x-ray looks about the same as previous last week. His CT of the neck does not show any acute pathology Assessment/Impression: Acute gastrointestinal hemorrhage likely upper Bilateral vocal cord dysfunction and stridor Anemia secondary to blood loss Rheumatoid arthritis Hypophosphatemia Plan: He will be admitted into the intensive care unit for closer monitoring for worsening bleeding or compromise of respiratory status. He will be given proton pump inhibitor for the GI bleeding. Gastroenterology service is ready been consulted. He will be transfused if his hemoglobin falls less than 8 or he becomes hypotensive. ENT will be consulted as well from the emergency department. We will get mechanical DVT prophylaxis. His electrolytes will be replaced per 12/15/2017 Jazmyn Extracted from:Title: [facility] Hospitalist Service Discharge Summary Author: Alex Paz MD Date: 12/07/17 [facility] Discharge Summary PATIENT NAME:SANDY RIOJAS ATTENDING: ALEX COTO JR, MD ADMISSION DATE:12/06/2017 13:56 DISCHARGE DATE:12/07/2017 16:38 DISCHARGE DIAGNOSIS: Pleural effusion, not elsewhere classified (J90) Shortness of breath (R06.02) CONSULTING PHYSICIANS/SERVICES: Gabriel Prieto MD Office: Service: Pulmonary, Medicine Nadia Arellano MD Office: Service: Pulmonary, Medicine DISCHARGE CONDITION: Fair HISTORY OF PRESENT ILLNESS: Please see admission history and physical for presenting details HOSPITAL COURSE: The patient was admitted secondary to shortness of breath. The patient was believed to have a mild exacerbation of chronic bronchitis. Patient was started on steroids as well as IV antibiotics. The patient was also started on submental oxygen however this was weaned. According to imaging there was concern for possible bilateral pleural effusions. These pleural effusions have not changed in character since the last time he had imaging done in September 2017. He initially was made n.p.o. in case he were to receive a thoracentesis however since there is no significant change in imaging and he was already breathing comfortably at room air this procedure was discontinued. Patient was seen by pulmonary medicine who offer further recommendations however they also agreed to discharge the patient home. I spoke with patient's daughter in detail and explained the course of care and the need for him to stop smoking cigarettes. I saw and examined the patient on day of discharge. The patient was discharged in fair condition with appropriate medications and appropriate follow-up. DISCHARGE INSTRUCTIONS: Please notify your physician if any of the following occur: Bleeding, Fever, Nausea, Pain, Shortness of breath, Signs of infection, Swelling Activity: Activity as tolerated, No strenuous activity DISCHARGE DIET: Home Diet: Diet Adult Regular DISCHARGE MEDICATIONS: PLEASE SEE HMR FOR DETAILS PERTAINING TO DISCHARGE MEDICATIONS DISCHARGE FOLLOWUP: Follow Up With Aruna Coleman MD, Call for appointment, within: 1 Week, reason: Establish Primary Care Physician A total of 33 minutes was spent planning discharge which included bedside counseling. Extracted from:Title: Clinical Document Author: Gabriel Prieto MD Date: 12/07/17 seen and examined, spoke with daughter and patient. Will do CT chest for further assessment. Extracted from:Title: General Admission H&P * Author: Kenneth Grewal MD Date: 12/06/17 Impression and Plan -Shortness of breath secondary to pleural effusion from underlying rheumatoid arthritis Pulmonary consult Thoracentesis need to be determined -Leukocytosis Likely from chronic steroids and possible pneumonia, organism unspecified Levaquin -Rheumatoid arthritis Continue methylprednisolone DVT prophylaxis Lovenox DISPO: expect 1 mn stay 12/07/2017 [facility] Extracted from:Title: Clinical Document Author: Mike Enrique DO Date: 02/08/16 Progress Daily [facility] Completed: Jan, 10:54 by Mike Enrique DO RM: 351 - 1D, SE C3AE RIOJAS, SANDY 50y (: 1965) M Attending: Mike Enrique DO Service: Internal Medicine Reason for Admission: PLEURAL EFFSUION, PNEUMONIA Working DRG: Connective tissue disorders w CC Code status: Full Code [Ordered] Current diet: Isolation: None Documented Allergies: NKDA SUBJECTIVE Patient seen and examined. Events noted overnight. Labs/Images reviewed feeling better, SOB resolved OBJECTIVE Labs (Last four charted values) WBC H 11.8 (FEB 04) H 11.3 (FEB 02) Hgb 14.7 (FEB 04) 14.4 (FEB 02) Hct 44.6 (FEB 04) 43.2 (FEB 02) Plt 238 (FEB 04) 255 (FEB 02) Na 136 (FEB 06) 136 (FEB 05) 138 (FEB 04) 139 (FEB 02) K 3.9 (FEB 06) 3.9 (FEB 05) 3.9 (FEB 04) L 3.4 (FEB 02) CO2 27 (FEB 06) 26 (FEB 05) 26 (FEB 04) 31 (FEB 02) Cl 101 (FEB 06) 102 (FEB 05) 103 (FEB 04) 104 (FEB 02) Cr 0.78 (FEB 06) 0.78 (FEB 05) 0.80 (FEB 04) 1.13 (FEB 02) BUN L 6 (FEB 06) 9 (FEB 05) L 6 (FEB 04) 7 (FEB 02) Glucose Random 96 (FEB 06) 90 (FEB 05) H 102 (FEB 04) 87 (FEB 04) Ca 8.7 (FEB 06) L 8.4 (FEB 05) L 8.2 (FEB 04) L 8.4 (FEB 02) PT 13.5 (FEB 02) INR 1.00 (FEB 02) PTT H 42.1 (FEB 02) Troponin <0.02 (FEB 02) CK MB 3.2 (FEB 02) Total CK H 225 (FEB 02) ASSESSMENT and EXAM Gen: NAD, Alert, Awake HEENT: NC/AT, PERRLA, oral area clear and moist Neck: No LAD, No JVD, trachea midline Chest: CTAB, no c/w/r CV: RRR, S1, S2 GI: +BS, S, NT, ND, No organomegaly Ext: no c/c/e Neuro: AOx3, no gross deficits noted Skin: No notable rashes PLAN and TREATMENT breathing better apprecaite pulm and thorasic surgeon on theri recs PO abx for 14 days pt to stop tobacco f/u with rheum for further eval DIAGNOSES and PROBLEMS 1. Bilateral pleural effusion secondary to rheumatoid arthritis. 2. Rheumatoid arthritis. 3. Shortness of breath. 4. Hypokalemia. 5. Tobacco abuse Ready for Discharge (Yes/No)? Pascual still necessary (Yes/No): Line still necessary (Yes/No): (no lab data in past 24 hours) Vitals Tmp(F) Pulse BP RR SpO2 FIO2 02/07 08:25 98.2 75 110/68 16 93 --- 02/07 07:13 ---- --- ----- 18 97 --- 02/07 04:00 98.2 82 102/65 18 93 --- 02/07 00:00 98.2 64 111/72 16 98 --- 02/06 21:42 ---- --- ----- 20 94 21% 24 Hr Tmax: 98.6F (37.00c) at 02/06 15:37 Vital Signs are the last 5 in the past 48 hours. Date Wt(kg) Wt(lb) Ht(cm) Ht(in) Method 02/03 115.09 253.20 175.26 69.00 Measured 02/02 (initial) 115.91 255.00 Estimated 02/02 175.26 69.00 Stated I&O Record In Out Bal 02/07 24hr Tot 129 200 -71 02/06 24hr Tot 779 1125 -346 Medications (10) Active Scheduled Meds (3): 02/04/16 enoxaparin 40 mg SUB-Q [id number] 02/04/16 piperacillin-tazobactam + sodium chloride 0.9% 100 ml ADV 100 mL (Zosyn + sodium chloride 0.9% 100 ml ADV 100 mL) 3.375 gm IVPB ABXQ8H 25 ml/hr 02/04/16 vancomycin + sodium chloride 0.9% INJ 250 mL 1,000 mg IVPB [id number] 250 ml/hr Unscheduled Meds: None PRN Meds (7): 02/04/16 acetaminophen (Tylenol) 650 mg PO Q6H 02/04/16 benzonatate (Tessalon Perles) 100 mg PO TID 02/04/16 codeine-guaiFENesin (Robitussin-AC oral syrup) 5 ml PO Q4H 02/04/16 dextromethorphan-guaiFENesin (dextromethorphan-guaiFENesin 10 mg-100 mg/5 mL oral liquid) 10 ml PO Q4H 02/06/16 hydromorphone (Dilaudid) 1 mg IV Q6H 02/04/16 morphine Sulfate 2 mg IVP Q4H 02/04/16 tramadol 50 mg PO Q6H One Time Meds: None Continuous Infusions: None 02/08/2016 [facility] Plan of Care Plan of Care Date Source IMM Influenza Seasonal Mar to August (>/=19 yrs) 03/26/2019 [facility] Upcoming EncountersDateTypeSpecialtyCare TeamDescription 01/25/2019 Office Visit Rheumatology Ashley Schumacher, Fellow()[address] [place], [place] [phone] [facility] Health MaintenanceDue DateLast DoneComments Colorectal Cancer Scrn Annual (FIT/FOBT) Age 50 to 75 2016 IMM Influenza Seasonal Mar to August (>/=19 yrs) 03/26/2019 12/26/2018 [facility] Upcoming EncountersDateTypeSpecialtyCare TeamDescription 12/26/2018 Office Visit Ent-Otolaryngology Bettye Ferreira III, MD[address] [place], [place] [phone] 01/25/2019 Office Visit Rheumatology Ashley Schumacher, Fellow()[address] [place] [address] [phone] [facility] DateLast DoneComments Colorectal Cancer Scrn Annual (FIT/FOBT) Age 50 to 75 2016 IMM Influenza Seasonal Mar to August (>/=19 yrs) 03/26/2019 12/21/2018 [facility] Upcoming EncountersDateTypeSpecialtyCare TeamDescription 11/23/2018 Office Visit Ent-Otolaryngology TO SEE DR CROOKS 12/03/2018 Lab Appointment Lab 01/25/2019 Office Visit Rheumatology Ashley Schumacher, Fellow()[address] [phone] [facility] DateLast DoneComments Colorectal Cancer Scrn Annual (FIT/FOBT) Age 50 to 75 2016 IMM Influenza Seasonal Mar to August (>/=19 yrs) 03/26/2019 11/23/2018 [facility] Upcoming EncountersDateTypeSpecialtyCare TeamDescription 11/23/2018 Office Visit Ent-Otolaryngology TO SEE DR CROOKS [facility] DateLast DoneComments Colorectal Cancer Scrn Annual (FIT/FOBT) Age 50 to 75 2016 IMM Influenza Seasonal Mar to August (>/=19 yrs) 03/26/2019 11/01/2018 [facility] Upcoming EncountersDateTypeSpecialtyCare TeamDescription 11/01/2018 Office Visit Rheumatology Junior Haddad, Fellow()[address] [place] [address] [phone] Ref#[id number] [facility] DateLast DoneComments Colorectal Cancer Scrn Annual (FIT/FOBT) Age 50 to 75 2016 IMM Influenza Seasonal Oct to August (>/=19 yrs) 03/26/2018 09/05/2018 [facility] Upcoming EncountersDateTypeSpecialtyCare TeamDescription 09/05/2018 Office Visit Ent-Otolaryngology Neptali Hearn, NPLBJ [facility] E[facility] Clinical [address] [place] [address] [phone]) 11/01/2018 Office Visit Rheumatology Junior Haddad, Fellow()[address] [place], [place] [phone] Ref#[id number] [facility] DateLast [facility]Comclinton hospital Colorectal Cancer Scrn Annual (FIT/FOBT) Age 50 to 75 2016 IMM Influenza Seasonal Mar to August (>/=19 yrs) 03/26/2018 08/27/2018 [facility] Upcoming EncountersDateTypeSpecialtyCare TeamDescription 11/01/2018 Office Visit Rheumatology Junior Haddad, Fellow()[address] [place], [place] [phone] Ref#[id number] [facility] DateLast [facility]Comcl[facility] hospital Colorectal Cancer Scrn Annual (FIT/FOBT) Age 50 to 75 2016 IMM Influenza Seasonal Mar to August (>/=19 yrs) 03/26/2018 08/22/2018 [facility] Upcoming EncountersDateTypeSpecialtyCare TeamDescription 08/08/2018 Office Visit Ent-Otolaryngology Neptali Hearn, DEVINLBJ PR ENT Clinical Vzf[address] [place] [address] [phone] (Fax) Rhonda Crooks MD[address] [place] [address] [phone] (Fax) To [facility] Dr. Crooks [facility] DoneComharlan Colorectal Cancer Scrn Annual (FIT/FOBT) Age 50 to 75 2016 IMM Influenza Seasonal Mar to August (>/=19 yrs) 03/26/2018 08/07/2018 [facility] Upcoming EncountersDateTypeSpecialtyCare TeamDescription 08/08/2018 Office Visit Ent-Otolaryngology Neptali Hearn, NPLBJ PR ENT Clinical Mk[address] [place] [address] [phone] (Fax) Rhonda Crooks MD[address] [place], [place] [phone] (Fax) To [facility] Dr. Crooks [facility] DoneComharlan Colorectal Cancer Scrn Annual (FIT/FOBT) Age 50 to 75 2016 IMM Influenza Seasonal Oct to August (>/=19 yrs) 03/26/2018 07/26/2018 [facility] Upcoming EncountersDateTypeSpecialtyCare TeamDescription 08/08/2018 Office Visit Ent-Otolaryngology Neptali Hearn, NPLBJ PR ENT Clinical Bl[address] [place] [address] [phone] (Fax) Rhonda Crooks MD[address] [place] [address] [phone] (Fax) To [facility]. Crooks [facility]The [facility] Institute[facility] Colorectal Cancer Scrn Annual (FIT/FOBT) Age 50 to 75 2016 IMM Influenza Seasonal Mar to August (>/=19 yrs) 03/26/2018 07/25/2018 [facility] IMM Influenza Seasonal Mar to August (>/=19 yrs) 03/26/2018 [facility] Colorectal Cancer Scrn Annual (FIT/FOBT) Age 50 to 75 2016 [facility] Social History Social History Date Source Tobacco UseTypesPacks/DayYears UsedDate Former Smoker Smokeless Tobacco: Never Used Food InsecurityAnswerDate Recorded Within the past 12 months, you worried that your food would run out before you got money to buy more. Never true 09/05/2018 Within the past 12 months, the food you bought just didn't last and you didn't have money to get more. Never true 09/05/2018 Sex Assigned at BirthDate Recorded Not on file Job Start DateOccupationIndustry Not on file Not on file Not on file Travel HistoryTravel StartTravel End No recent travel history available. 12/26/2018 [facility] Social History TypeResponse Substance Abuse Use: None. Alcohol Past, Type Beer, Liquor. Smoking Status Former smoker; Type: Cigarettes; Exposure to Tobacco Smoke None; Cigarette Smoking Last 365 Days No; Reg Smoking Cessation Counseling No entered on: 03/24/18 12/07/2017 [facility] Social History TypeResponse Substance Abuse Use: None. Alcohol Past, Type Beer, Liquor. Smoking Status Former smoker; Type: Cigarettes; Exposure to Tobacco Smoke None; Cigarette Smoking Last 365 Days No; Reg Smoking Cessation Counseling No entered on: 03/24/18 12/07/2017 [facility] Social History TypeResponse Smoking Status Never smoker; Exposure to Tobacco Smoke None; Cigarette Smoking Last 365 Days No; Reg Smoking Cessation Counseling Yes 02/04/2016 JANEL Liang Family History No Data Provided for This Section Advance Directives No Data Provided for This Section Functional Status No Data Provided for This Section
--- OUTSIDE RECORDS SUMMARY | 2018-12-31 11:59 | XMS REPORT | Clinical Summary ---
Author Author [facility] Organization [facility] Address Unknown Phone Unavailable Care Team Providers Care [employer] Man Name Role Phone PCP Unavailable Allergies Comments [...] Encounters Care Team Description Date Type Specialty 12/03/2018 Travel Rhonda Crooks MD Tracheostomy care (Primary Dx); Vocal cord paresis 11/23/2018 Office Visit Ent-Otolaryngology Rheumatoid arteritis 11/01/2018 Ancillary Radiology Procedure Rheumatoid arteritis 11/01/2018 Ancillary Radiology Procedure Maxx Mohr MD Shaikh, Kashif S, Fellow(MD) Rheumatoid arthritis with positive rheumatoid factor, involving unspecified site (Primary Dx) 11/01/2018 Office Visit Rheumatology Carissa Garcia Interpretation 11/01/2018 Telephone Junior Haddad, Fellow() Rheumatoid arthritis with positive rheumatoid factor, involving unspecified site (Primary Dx) 11/01/2018 Orders Only Rheumatology 11/01/2018 Travel Neptali Hearn NP Alexander, Ronda E, MD Vocal cord paresis (Primary Dx); Tracheostomy care; Tracheostomy in place 09/05/2018 Office Visit Ent-Otolaryngology 09/05/2018 Travel Rosangela Ramos 08/27/2018 Clinical Case Mgt Neptali Hearn, Rhonda Mcqueen MD Disorder of vocal cords (Primary Dx); Encounter for attention to tracheostomy; Tracheostomy in place 08/08/2018 Office Visit Ent-Otolaryngology CamposFrida Interpretation 08/08/2018 Telephone Oral Surgery Reba Grullon Interpretation 08/08/2018 Telephone 08/08/2018 Travel Rhonda Crooks MD Rheumatoid arthritis involving multiple sites, unspecified rheumatoid factor presence (Primary Dx) 07/20/2018 Orders Only Ent-Otolaryngology Rhonda Crooks MD Rheumatoid arteritis (Primary Dx) 07/11/2018 Orders Only Ent-Otolaryngology Zac Maxwell ResidentMN 07/10/2018 E-Consult Ent-Otolaryngology Rhonda Crooks MD Vocal cord paresis; Rheumatoid arthritis involving multiple sites, unspecified rheumatoid factor presence 07/04/2018 Hospital Lab Encounter Rhonda Crooks MD Vocal cord paresis (Primary Dx); Rheumatoid arthritis involving multiple sites, unspecified rheumatoid factor presence; Shortness of breath 07/04/2018 Office Visit Ent-Otolaryngology 07/04/2018 Travel after 12/20/2017 Social History Date Tobacco Use Types Packs/Day [...] Signs Reading Time Taken Comments Vital Sign 152/91 11/23/2018 2:16 PM CDT Blood Pressure 68 11/23/2018 2:16 PM CDT Pulse 36.8 C (98.2 F) 11/23/2018 2:16 PM CDT Temperature 18 11/23/2018 2:16 PM CDT Respiratory Rate - - Oxygen Saturation - - Inhaled Oxygen Concentration 127 kg (280 lb) 11/23/2018 2:16 PM CDT Weight 175.3 cm (5' 9") 11/23/2018 2:16 PM CDT Height 41.35 11/23/2018 2:16 PM CDT Body Mass Index Plan of Treatment Care Team Description Date Type Specialty Bettye Ferreira III, MD [address] [facility] [place] [address] 12/26/2018 Office Visit Ent-Otolaryngology Ashley Schumacher, Fellow() [facility] [place] [address] [facility] 01/25/2019 Office Visit Rheumatology Health Maintenance Due [...] CCP IGG ABS Routine 07/04/2018 12:20 PM SALES EXPERT COMPREHENSIVE METABOLIC Routine 07/04/2018 Vocal cord paresis PANEL 12:20 PM SALES EXPERT Rheumatoid arthritis involving multiple sites, unspecified rheumatoid factor presence CBC/DIFF Routine 07/04/2018 Vocal cord paresis 12:20 PM SALES EXPERT Rheumatoid arthritis involving multiple sites, unspecified rheumatoid factor presence SED RATE Routine 07/04/2018 Vocal cord paresis 12:20 PM SALES EXPERT Rheumatoid arthritis involving multiple sites, unspecified rheumatoid factor presence C-REACTIVE PROTEIN HIGH Routine 07/04/2018 Vocal cord paresis SENSITIVITY (CRP-HS) 12:20 PM SALES EXPERT Rheumatoid arthritis involving multiple sites, unspecified rheumatoid factor presence RA FACTOR Routine 07/04/2018 Vocal cord paresis 12:20 PM SALES EXPERT Rheumatoid arthritis involving multiple sites, unspecified rheumatoid factor presence after 12/20/2017 Results * CBC (12/03/2018 10:14 AM CDT) Pathologist [facility] WBC 9.8 4.5 - 12.0 K/uL [facility] RBC 4.58 (L) 4.60 - 6.20 M/uL [facility] Hemoglobin 13.1 (L) 14.0 - 18.0 g/dL [facility] Hematocrit 41.1 40.0 - 54.0 % [facility] MCV 89.7 82.0 - 92.0 fL [facility] MCH 28.6 27.0 - 31.0 pg [facility] MCHC 31.9 (L) 32.0 - 36.0 g/dL [facility] RDW 51.3 (H) 35.1 - 43.9 fL [facility] Platelet 211 150 - 400 K/uL [facility] Mean Platelet 9.7 9.4 - 12.4 fL [facility] Volume LAB Specimen Blood Performing Organization Address City/State/Zipcode Phone Number [facility] [address] [place] [address] [facility] [address] [place] [address] * COMPREHENSIVE METABOLIC PANEL(DBIL NOT INCLUDED) (12/03/2018 10:14 AM CDT) Only the most recent of 3 results within the time period is included. Pathologist [facility] Sodium 140 136 - 145 mmol/L [facility] Potassium 3.9 3.5 - 5.1 mmol/L [facility] Chloride 107 98 - 107 mmol/L [facility] CO2 26 21 - 31 mmol/L [facility] Glucose 102 70 - 110 mg/dL [facility] Calcium, Total 8.9 8.6 - 10.3 mg/dL [facility] Urea Nitrogen 10.0 7.0 - 25.0 mg/dL [facility] Creatinine 1.0 0.7 - 1.3 mg/dL [facility] Alkaline 41 34 - 104 U/L [facility] Phosphatase LAB ALT 16 7 - 52 U/L [facility] AST 18 13 - 39 U/L [facility] Total Bilirubin 0.4 0.2 - 1.2 mg/dL [facility] Total Protein 6.6 6.0 - 8.3 g/dL [facility] GFR, Estimated >60 mL/min/1.73 m2 [facility] Albumin 3.5 (L) 4.2 - 5.5 g/dL [facility] Anion Gap 7 5 - 16 mmol/L [facility] Specimen Blood Performing Organization Address City/[facility]/Zipcode Phone Number [facility] [address] [place] [phone] [facility] [address] [place] [phone] * DIFFERENTIAL, MANUAL (12/03/2018 10:14 AM CDT) WBC Corrected 9.8 4.5 - 12.0 K/uL [facility] Neutrophil 62.0 34.0 - 67.9 % [facility] Lymphocyte 20.0 (L) 21.8 - 50.0 % [facility] Monocyte 14.0 (H) 5.3 - 12.0 % [facility] Eosinophil 2.0 0.8 - 5.0 % [facility] Basophil 2.0 (H) 0.2 - 1.2 % [facility] Segs + Bands, 6.08 K/uL [facility] Abs LAB Neutrophil, Abs 6.08 (H) 1.78 - 5.36 K/uL [facility] Lymphocyte, Abs 1.96 1.32 - 3.57 K/uL [facility] Monocyte, Abs 1.37 (H) 0.30 - 0.82 K/uL [facility] Eosinophil, Abs 0.20 0.04 - 0.54 K/uL [facility] Basophil, Abs 0.20 (H) 0.01 - 0.08 K/uL [facility] Cells Counted 100 [facility] Specimen Blood Performing Organization Address City/[facility]/Zipcode Phone Number [facility] [address] [place] [phone] [facility] [address] [place] [phone] * XRAY HAND 2 VIEWS (11/01/2018 [...] Soft tissues: Appear unremarkable. Procedure Note Logan Delgado/Ofeog In - 11/01/2018 3:13 PM CDT Bilateral [...] dislocation. Soft tissues: Appear unremarkable. Procedure Note Interface Rad/Mammog In - 11/02/2018 12:51 PM CDT foot [...] MD, 11/02/2018 12:46 PM Performing Organization Address [facility] Phone Number SMS * SJOGREN'S AB (11/01/2018 11:17 AM CDT) [facility] Anti SS/A <0.2 LABORATORY Reference range: 0.0 to 0.9 CORPORATION OF Unit: AI [place] Anti SS/B <0.2 LABORATORY Reference range: 0.0 to 0.9 CORPORATION OF Unit: AI [place] Specimen Blood Products (Lab Use Only) - BLOOD Performing Organization Address [facility] Phone Number arGEN-X LABORATORY CORPORATION OF [address] [phone] [place] 145 * QUANTIFERON TB GOLD (11/01/2018 11:06 AM CDT) [facility] QuantiFERON Comment LABORATORY Criteria (note) CORPORATION OF [...] CORPORATION OF [place] Specimen Performing Organization Address [facility] Phone Number arGEN[facility]X [facility] [address] [phone] [place] 145 * QUANTIFERON TB GOLD (11/01/2018 11:06 AM CDT) [facility] QuantiFERON Incubation performed. LABORATORY Incubation [facility]POR[facility] [place] QuantiFERON TB Negative LABORATORY Gold Plus Reference range: Negative CORPORATION OF [place] Specimen Blood Performing Organization Address [facility] Phone Number [facility] [address] [phone] [place] 145 * HEPATITIS PANEL (11/01/2018 11:06 [...] WBC 17.6 (H) 4.5 - 12.0 K/uL [facility] RBC 4.70 4.60 - 6.20 M/uL [facility] Hemoglobin 13.4 (L) 14.0 - 18.0 g/dL [place] [address] Hematocrit 41.7 40.0 - 54.0 % [place] [address] MCV 89 82 - 92 fL [place] [address] MCH 28.5 27.0 - 31.0 pg [place] [address] MCHC 32.1 32.0 - 36.0 g/dL [place] [address] RDW 50.9 (H) 35.1 - 43.9 fL [facility] Platelets 247 150 - 400 K/uL [facility] Neutrophils 62.3Comment: Corrected on 34.0 - 67.9 % [facility] 11/01 AT 1232: Previously reported as: 64.3 Lymphs 22.6 21.8 - 50.0 % [facility] Monocytes 11.2 5.3 - 12.0 % [facility] Eos 1.3 0.8 - 5.0 % [facility] Basos 0.6 0.2 - 1.2 % [facility] Neutrophils 10.96 (H)Comment: Corrected on 1.78 - 5.36 K/uL [facility] (Absolute) 11/01 AT 1232: Previously reported as: 11.31 Lymphs 3.98 (H)Comment: Corrected on 1.32 - 3.57 K/uL [facility] (Absolute) 11/01 AT 1232: Previously reported as: 3.96 Monocytes(Absol 1.97 (H)Comment: Corrected on 0.30 - 0.82 K/uL [facility] gambell) 11/01 AT 1232: Previously reported as: 1.96 Eos (Absolute) 0.23Comment: Corrected on 0.04 - 0.54 K/uL [facility] 11/01 AT 1232: Previously reported as: 0.22 Baso (Absolute) 0.11 (H)Comment: Corrected on 0.01 - 0.08 K/uL [facility] 11/01 AT 1232: Previously reported as: 0.10 Atypical Lymph 2 % [facility] Specimen Blood Performing Organization Address [facility] Phone Number [facility] * COMPLEMENT C4 (11/01/2018 11:06 AM CDT) Complement C4 25.2 19 - 52 mg/dL [facility] 1 Specimen Blood Performing Organization Address [facility] Phone Number [facility] * COMPLEMENT C3 (11/01/2018 11:06 AM CDT) Complement C3 141.2 87 - 200 mg/dL [facility] 1 Specimen Blood Performing Organization Address [facility] Phone Number MISYS BT [facility] 1 * SANDY (11/01/2018 11:06 AM CDT) SANDY Screen Negative NEG BT DIAGNOSTIC IMMUNOLOGY Specimen Blood Performing Organization Address [facility] Phone Number [facility] IMMUNOLOGY * UA CHEMISTRIES (11/01/2018 10:48 AM CDT) Color Yellow [facility] 2 Clarity Clear [facility] 2 Specific 1.019 1.001 - 1.035 BT [facility] [place] 2 pH 6.0 5 - 8 BT [...] MAIN-STATION 2 Specimen Urine Performing Organization Address [facility] Phone Number [facility] 2 * T PROT/CREA RATIO,UR (11/01/2018 10:48 AM CDT) Creatinine, 182.5 20 - 370 mg/dL [facility] Urine 1 T Prot, Ur 0.26 g/L [facility] 1 T Prot/Crea 0.14 0.0 - 0.5 BT [facility] Ratio,Ur 1 Specimen Urine Performing Organization Address City/State/[facility]ode Phone Number [facility] 1 * CCP IGG ABS (07/04/2018 12:20 PM SALES EXPERT) CCP Abs IgG/IgA >250 LABORATORY Reference range: 0 to 19 CORPORATION OF Unit: units [place] (note) Negative <20 Weak spnafijx71 - 39 Moderate saexznnl73 - 59 Strong positive>59 (H) Specimen Performing Organization Address City/State/Zipcode Phone Number [facility] [place] [address] [place] 145 * CRP, HIGH SENS (07/04/2018 12:20 PM SALES EXPERT) CRP, high sens 14.692 (H) <1.0 mg/dL [facility] 1 Specimen Blood Performing Organization Address City/State/Zipcode Phone Number [facility] 1 * SED RATE (07/04/2018 12:20 PM SALES EXPERT) Pathologist [facility] Sed Rate 91 (H) <20 mm/Hr [facility] Specimen Blood Performing Organization Address City/State/Zipcode Phone Number [facility] [address] [place] [phone] * RA FACTOR (07/04/2018 12:20 PM SALES EXPERT) Pathologist [facility] RA Factor 1,754 (H) <14 IU/mL [facility] 1 Specimen Blood Performing Organization Address City/State/Zipcode Phone Number [facility] 1 after 12/20/2017 Insurance Type Payer Benefit Subscriber ID Effective Phone Address Plan / Dates Group [facility] xxxxxxxxxxxx 2018-P [phone] [address] [facility] [id number] [facility] [phone] [employer] PLAN [employer] PLAN xxxxxxx 2018-9 [address] [place] [address]
--- OUTSIDE RECORDS SUMMARY | 2018-12-31 12:00 | XMS REPORT | Clinical Summary ---
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 Ancillary Radiology Procedure Rheumatoid arteritis 11/01/2018 Ancillary Radiology Procedure Maxx Mohr MD Shaikh, Kashif, Fellow() Rheumatoid arthritis with positive rheumatoid factor, [...] Tracheostomy in place 08/08/2018 Office Visit Ent-Otolaryngology Andres Frida Interpretation 08/08/2018 Telephone Oral Surgery Reba Grullon Interpretation 08/08/2018 Telephone 08/08/2018 Travel Rhonda Oconnell MD Rheumatoid arthritis involving multiple sites, unspecified rheumatoid factor presence (Primary Dx) 07/20/2018 Orders Only Ent-Otolaryngology Rhonda Oconnell MD Rheumatoid arteritis (Primary Dx) 07/11/2018 Orders Only Ent-Otolaryngology Zac Maxwell, ResidentIA 07/10/2018 E-Consult Ent-Otolaryngology Rhonda Oconnell MD Vocal cord paresis; Rheumatoid arthritis involving multiple sites, unspecified rheumatoid factor presence 07/04/2018 Hospital Lab Encounter Rhonda Oconnell MD Vocal cord paresis (Primary Dx); Rheumatoid arthritis involving multiple sites, unspecified rheumatoid factor presence; Shortness of breath 07/04/2018 Office Visit Ent-Otolaryngology 07/04/2018 Travel after 11/22/2017 Social History Date Tobacco Use Types Packs/Day Years Used Former Smoker Smokeless Tobacco: Never Used Sex Assigned at Date Recorded Not on file Industry Job Start Date Occupation Not on file Not on file Not on file Travel End Travel History Travel Start No recent travel history available. Last Filed Vital Signs Reading Time Taken Comments Vital Sign 121/69 11/01/2018 10:04 AM CDT Blood Pressure 66 11/01/2018 10:04 AM CDT Pulse 36.7 C (98.1 F) 11/01/2018 10:04 AM CDT Temperature 20 11/01/2018 10:04 AM CDT Respiratory Rate - - Oxygen Saturation - - Inhaled Oxygen Concentration 125 kg (275 lb 8 oz) 11/01/2018 10:04 AM CDT Weight 175.3 cm (5' 9") 11/01/2018 10:04 AM CDT Height 40.68 11/01/2018 10:04 AM CDT Body Mass Index Plan of Treatment Care Team Description Date Type Specialty TO SEE DR OCONNELL 11/23/2018 Office Visit Ent-Otolaryngology 12/03/2018 Lab Appointment Lab Ashley Schumacher, Fellow() [address] [address] [facility] 01/25/2019 Office Visit Rheumatology Health Maintenance Due Date Last Done Comments Colorectal Cancer Scrn 2016 Annual (FIT/FOBT) Age 50 to 75 IMM Influenza Seasonal 03/26/2019 Oct to August (>/=19 yrs) Procedures Comments Procedure Name Priority Date/Time Associated Diagnosis XRAY HAND 2 VIEWS Routine 11/01/2018 Rheumatoid [...] COMPREHENSIVE METABOLIC Routine 11/01/2018 Rheumatoid arthritis with PANEL(DBIL NOT INCLUDED) 11:06 AM CDT positive rheumatoid factor, involving unspecified site CBC/DIFF Routine 11/01/2018 Rheumatoid arthritis with 11:06 AM CDT positive rheumatoid factor, involving unspecified site T PROT/CREA RATIO,UR Routine 11/01/2018 Rheumatoid arthritis with 10:48 AM CDT positive rheumatoid factor, involving unspecified site UA CHEMISTRIES Routine 11/01/2018 Rheumatoid arthritis with 10:48 AM CDT positive rheumatoid factor, involving unspecified site CCP IGG ABS Routine 07/04/2018 12:20 PM CHEMISTRY TEACHER COMPREHENSIVE METABOLIC Routine 07/04/2018 Vocal cord paresis PANEL(DBIL NOT INCLUDED) 12:20 PM CHEMISTRY TEACHER Rheumatoid arthritis involving multiple sites, unspecified rheumatoid factor presence CBC/DIFF Routine 07/04/2018 Vocal cord paresis 12:20 PM CHEMISTRY TEACHER Rheumatoid arthritis involving multiple sites, unspecified rheumatoid factor presence SED RATE Routine 07/04/2018 Vocal cord paresis 12:20 PM CHEMISTRY TEACHER Rheumatoid arthritis involving multiple sites, unspecified rheumatoid factor presence CRP, HIGH SENS Routine 07/04/2018 Vocal cord paresis 12:20 PM CHEMISTRY TEACHER Rheumatoid arthritis involving multiple sites, unspecified rheumatoid factor presence RA FACTOR Routine 07/04/2018 Vocal cord paresis 12:20 PM CHEMISTRY TEACHER Rheumatoid arthritis involving multiple sites, unspecified rheumatoid factor presence after 11/22/2017 Results * XRAY HAND 2 VIEWS (11/01/2018 12:07 PM CDT) Only the most recent of 2 results within the time period is included. Specimen Impressions Performed At IMPRESSION: [facility] Periarticular osseous demineralization may be reflective of [...] dislocation. Soft tissues: Appear unremarkable. Procedure Note Interface, Rad/Mammog In - 11/01/2018 3:13 PM CDT Bilateral [...] MD, 11/01/2018 3:08 PM Performing Organization Address [facility] Phone Number SMS * XRAY FOOT 2 VIEWS MIN (11/01/2018 12:07 PM CDT) Only the most recent of 2 results within the time period is included. Specimen Impressions Performed At IMPRESSION: [facility] Periarticular osseous demineralization may be associated with known diagnosis of rheumatoid arthropathy. Signed By: Gera Monaco MD, 11/02/2018 12:46 PM Narrative Performed At foot x-rays - 2 view(s), right SMS HISTORY:Rheumatoid arthritis COMPARISON: None DISCUSSION: Periarticular osseous demineralization. No acute displaced fracture. No aggressive osseous lesion. Plantar calcaneal enthesophyte Joints: The joint spaces are well-maintained. No dislocation. Soft tissues: Appear unremarkable. Procedure Note Interface, Rad/Mammog In - 11/02/2018 12:51 PM CDT [...] MD, 11/02/2018 12:46 PM Performing Organization Address [facility]/[employer] Phone Number [facility] * SJOGREN'S AB (11/01/2018 11:17 AM CDT) Anti SS/A <0.2 LABORATORY Reference range: 0.0 to 0.9 CORPORATION OF Unit: AI [place] Anti SS/B <0.2 LABORATORY Reference range: 0.0 to 0.9 CORPORATION OF Unit: AI [place] Specimen Blood bag - BLOOD Performing Organization Address [facility] Phone Number [employer] OF [address] [place] [address] HARRY 145 * QUANTIFERON TB GOLD (11/01/2018 11:06 AM CDT) [facility] QuantiFERON Comment LABORATORY Criteria (note) CORPORATION OF The QuantiFERON-TB Gold Plus HARRY result is determined by subtracting the Nil value from either TB antigen (Ag) tube. The mitogen tube serves as a control for the test. QUANTIFERON TB1 0.21 LABORATORY AG VALUE Unit: IU/mL [facility]PORATION OF [place] QUANTIFERON TB2 0.31 LABORATORY AG VALUE Unit: IU/mL [facility]POR[facility] OF [place] QuantiFERON Nil 0.22 LABORATORY Value Unit: IU/mL [facility]POR[facility] OF [place] QuantiFERON >10.00 LABORATORY Mitogen Value Unit: IU/mL CORPORATION OF [place] Specimen Performing Organization Address [facility] Phone Number [employer] OF [address] [place] [address] HARRY 145 * QUANTIFERON TB GOLD (11/01/2018 11:06 AM CDT) [facility] QuantiFERON Incubation performed. LABORATORY Incubation [facility]POR[facility] OF [place] QuantiFERON TB Negative LABORATORY Gold Reference range: Negative CORPORATION OF [place] Specimen Blood Performing Organization Address [facility] Phone Number [employer] LABORATORY CORPORATION OF [address] [place] [address] HARRY 145 * COMPREHENSIVE METABOLIC PANEL(DBIL NOT INCLUDED) (11/01/2018 11:06 AM CDT) Only the most recent of 2 results within the time period is included. [facility] Albumin 3.4 (L) 4.2 - 5.5 g/dL [facility] 1 Calcium 9.4 8.6 - 10.3 mg/dL [facility] 1 CO2 27 21 - 31 mmol/L [facility] 1 Chloride 105 98 - 107 mmol/L [facility] 1 Creatinine 1.00 0.70 - 1.30 mg/dL [facility] 1 Glucose 88 70 - 110 mg/dL [facility] 1 Alk Phos 47 34 - 104 U/L [facility] 1 Potassium 3.6 3.5 - 5.1 mmol/L [facility] 1 Sodium 140 136 - 145 mmol/L [facility] 1 ALT 27 7 - 52 U/L [facility] 1 AST 18 13 - 39 U/L [facility] 1 Urea Nitrogen 14 7 - 25 mg/dL [facility] 1 T Bilirubin 0.4 0.2 - 1.2 mg/dL [facility] 1 T Protein 6.8 6.0 - 8.3 g/dL [facility] 1 GFR, Estimated >60 mL/min/1.73 m2 [facility] 1 GFR, Estim, >60 mL/min/1.73 m2 [facility] 1 Afr-Am Anion Gap 8 [facility] 1 Specimen Blood Performing Organization Address [facility] Phone Number [facility] 1 * HEPATITIS PANEL (11/01/2018 11:06 AM CDT) Pathologist [facility] HCV IgG Negative NEG BT [facility] 3 HBsAg Negative NEG BT [facility] 3 HAV, IgM Negative NEG BT [facility] 3 HBcAb, IgM Negative NEG BT [facility] 3 Specimen Blood Performing Organization Address [facility] Phone Number [facility] 3 * CBC/DIFF (11/01/2018 11:06 AM CDT) Only the most recent of 2 results within the time period is included. WBC 17.6 (H) 4.5 - 12.0 K/uL [facility] 2 RBC 4.70 4.60 - 6.20 M/uL [facility] 2 Hemoglobin 13.4 (L) 14.0 - 18.0 g/dL [facility] 2 Hematocrit 41.7 40.0 - 54.0 % [facility] 2 MCV 89 82 - 92 fL [facility] 2 MCH 28.5 27.0 - 31.0 pg [facility] 2 MCHC 32.1 32.0 - 36.0 g/dL [facility] 2 RDW 50.9 (H) 35.1 - 43.9 fL [facility] 2 Platelet 247 150 - 400 K/uL [facility] 2 Neutrophil 62.3Comment: Corrected on 34.0 - 67.9 % [facility] 2 11/01 AT 1232: Previously reported as: 64.3 Lymphocyte 22.6 21.8 - 50.0 % [facility] 2 Monocyte 11.2 5.3 - 12.0 % [facility] 2 Eosinophil 1.3 0.8 - 5.0 % [facility] 2 Basophil 0.6 0.2 - 1.2 % [facility] 2 Neutrophil, Abs 10.96 (H)Comment: Corrected on 1.78 - 5.36 K/uL [facility] 2 11/01 AT 1232: Previously reported as: 11.31 Lymphocyte, Abs 3.98 (H)Comment: Corrected on 1.32 - 3.57 K/uL [facility] 2 11/01 AT 1232: Previously reported as: 3.96 Monocyte, Abs 1.97 (H)Comment: Corrected on 0.30 - 0.82 K/uL [place] [id number] 11/01 AT 1232: Previously reported as: 1.96 Eosinophil, Abs 0.23Comment: Corrected on 0.04 - 0.54 K/uL [place] [id number] 11/01 AT 1232: Previously reported as: 0.22 Basophil, Abs 0.11 (H)Comment: Corrected on 0.01 - 0.08 K/uL [place] [id number] 11/01 AT 1232: Previously reported as: 0.10 Atypical Lymph 2 % [facility] 2 Specimen Blood Performing Organization Address [facility] Phone Number [facility] 2 * COMPLEMENT C4 (11/01/2018 11:06 AM CDT) Complement C4 25.2 19 - 52 mg/dL BT [facility] 1 Specimen Blood Performing Organization Address [facility] Phone Number [facility] 1 * COMPLEMENT C3 (11/01/2018 11:06 AM CDT) Complement C3 141.2 87 - 200 mg/dL BT [facility] 1 Specimen Blood Performing Organization Address [facility] Phone Number [facility] 1 * SANDY (11/01/2018 11:06 AM CDT) SANDY Screen Negative NEG BT DIAGNOSTIC IMMUNOLOGY Specimen Blood Performing Organization Address [facility] Phone Number [facility] DIAGNOSTIC IMMUNOLOGY * UA CHEMISTRIES (11/01/2018 10:48 AM CDT) Color Yellow BT [facility] 2 Clarity Clear BT [facility] 2 Spec Earling 1.019 1.001 - 1.035 [facility] 2 pH 6.0 5 - 8 [facility] 2 Protein 1+ (A) NEG BT [facility] 2 Glucose Negative NEG BT [facility] 2 Ketone Negative NEG BT [facility] 2 Bilirubin Negative NEG BT [facility] 2 Nitrate Negative NEG BT [facility] 2 Urobilinogen <1.0 0.2 - 1.0 EU/dL BT [facility] 2 Leukocyte Negative NEG BT [facility] 2 Blood 3+ (A) NEG BT [facility] 2 RBC 7 (H) 0 - 4 /HPF BT [facility] 2 WBC 1 0 - 5 /HPF BT [facility] 2 Epithelial Cell 2 /HPF BT [facility] 2 Mucous Present BT [facility] 2 Specimen Urine Performing Organization Address [facility] Phone Number [facility] BT [facility] 2 * T PROT/CREA RATIO,UR (11/01/2018 10:48 AM CDT) Creatinine, Ur 182.5 20 - 370 mg/dL BT [facility] 1 T Prot, Ur 0.26 g/L BT [facility] 1 T Prot/Crea 0.14 0.0 - 0.5 BT [facility] Ratio,Ur 1 Specimen Urine Performing Organization Address [facility] Phone Number [facility] BT [facility] 1 * CCP IGG ABS (07/04/2018 12:20 PM CHEMISTRY TEACHER) CCP Abs IgG/IgA >250 LABORATORY Reference range: 0 to 19 CORPORATION OF Unit: units [place]Y (note) Negative <20 Weak [id number] - 39 Moderate [id number] - 59 Strong positive>59 (H) Specimen Performing Organization Address [facility] Phone Number [facility] LABORATORY CORPOR[facility] OF [address] [place] [address] HARRY 145 * CRP, HIGH SENS (07/04/2018 12:20 PM CHEMISTRY TEACHER) CRP, high sens 14.692 (H) <1.0 mg/dL [facility] 1 Specimen Blood Performing Organization Address [facility] Phone Number [facility] 1 * SED RATE (07/04/2018 12:20 PM CHEMISTRY TEACHER) Sed Rate 91 (H) <20 mm/Hr [facility] BLOOD BANK Specimen Blood Performing Organization Address [facility] Phone Number [facility] * RA FACTOR (07/04/2018 12:20 PM CHEMISTRY TEACHER) RA Factor 1,754 (H) <14 IU/mL BT [facility] 1 Specimen Blood Performing Organization Address [facility]/State/Zipcode Phone Number MISYS BT [facility] 1 after 11/22/2017 Insurance Type Payer Benefit Subscriber ID Effective Phone Address Plan / Dates Group [facility] xxxxxxxxxxxx 2018-P [phone] resent [id number] [facility] [place] [address] [employer] [place] xxxxxxx 2018-P [phone] INDIGENT FAMILY resent [id number] [place], [place] [address] [employer] xxxxxxx 2018-9 [address] [place] [address]
--- OUTSIDE RECORDS SUMMARY | 2018-12-31 12:01 | XMS REPORT | Clinical Summary ---
Author Author [facility] Organization [facility] Address Unknown Phone Unavailable Care Team Providers Care Warp Trucker Name Role Phone PCP Unavailable Allergies Comments [...] Dx) 07/11/2018 Orders Only Ent-Otolaryngology Zac Maxwell ResidentNH 07/10/2018 E-Consult Ent-Otolaryngology Rhonda Crooks MD Vocal cord paresis; Rheumatoid arthritis involving multiple sites, unspecified rheumatoid factor presence 07/04/2018 Hospital Lab Encounter Rhonda Crooks MD Vocal cord paresis (Primary Dx); Rheumatoid arthritis involving multiple sites, unspecified rheumatoid factor presence; Shortness of breath 07/04/2018 Office Visit Ent-Otolaryngology 07/04/2018 Travel after 12/25/2017 Social History Date Tobacco Use Types Packs/Day [...] Date Type Specialty Ashley Schumacher, Fellow() [address] [place] [address] radha 01/25/2019 Office Visit Rheumatology Health Maintenance [...] CCP IGG ABS Routine 07/04/2018 12:20 PM BOARD CERTIFIED BEHAVIORAL ANALYST COMPREHENSIVE METABOLIC Routine 07/04/2018 Vocal cord paresis PANEL 12:20 PM BOARD CERTIFIED BEHAVIORAL ANALYST Rheumatoid arthritis involving multiple sites, unspecified rheumatoid factor presence CBC/DIFF Routine 07/04/2018 Vocal cord paresis 12:20 PM BOARD CERTIFIED BEHAVIORAL ANALYST Rheumatoid arthritis involving multiple sites, unspecified rheumatoid factor presence SED RATE Routine 07/04/2018 Vocal cord paresis 12:20 PM BOARD CERTIFIED BEHAVIORAL ANALYST Rheumatoid arthritis involving multiple sites, unspecified rheumatoid factor presence C-REACTIVE PROTEIN HIGH Routine 07/04/2018 Vocal cord paresis SENSITIVITY (CRP-HS) 12:20 PM BOARD CERTIFIED BEHAVIORAL ANALYST Rheumatoid arthritis involving multiple sites, unspecified rheumatoid factor presence RA FACTOR Routine 07/04/2018 Vocal cord paresis 12:20 PM BOARD CERTIFIED BEHAVIORAL ANALYST Rheumatoid arthritis involving multiple sites, unspecified rheumatoid factor presence after 12/25/2017 Results * CBC (12/03/2018 10:14 AM CDT) WBC 9.8 4.5 - 12.0 K/uL [facility] RBC 4.58 (L) 4.60 - 6.20 M/uL [facility] Hemoglobin 13.1 (L) 14.0 - 18.0 g/dL [facility] Hematocrit 41.1 40.0 - 54.0 % [facility] MCV 89.7 82.0 - 92.0 fL [facility] MCH 28.6 27.0 - 31.0 pg [facility] MCHC 31.9 (L) 32.0 - 36.0 g/dL [facility] RDW 51.3 (H) 35.1 - 43.9 fL [facility] Platelet 211 150 - 400 K/uL [facility] Mean Platelet 9.7 9.4 - 12.4 fL [facility] Volume LAB Specimen Blood Performing Organization Address City/State/Zipcode Phone Number [facility] [address] [place] [address] [facility] [address] [place] [address] * COMPREHENSIVE METABOLIC PANEL(DBIL NOT INCLUDED) (12/03/2018 10:14 AM CDT) Only the most recent of 3 results within the time period is included. Sodium 140 136 - 145 mmol/L [facility] Potassium 3.9 3.5 - 5.1 mmol/L [facility] Chloride 107 98 - 107 mmol/L [facility] CO2 26 21 - 31 mmol/L [facility] Glucose 102 70 - 110 mg/dL [facility] Calcium, Total 8.9 8.6 - 10.3 mg/dL [facility] Urea Nitrogen 10.0 7.0 - 25.0 mg/dL [facility] Creatinine 1.0 0.7 - 1.3 mg/dL [facility] Alkaline 41 34 - 104 U/L [facility] Phosphatase LAB ALT 16 7 - 52 U/L [facility] AST 18 13 - 39 U/L [facility] Total Bilirubin 0.4 0.2 - 1.2 mg/dL [facility] Total Protein 6.6 6.0 - 8.3 g/dL [facility] GFR, Estimated >60 mL/min/1.73 m2 [facility] Albumin 3.5 (L) 4.2 - 5.5 g/dL [facility] Anion Gap 7 5 - 16 mmol/L [facility] Specimen Blood Performing Organization Address [facility]/Zipcode Phone Number [facility] [address] [place] [phone] [facility] [address] [place] [phone] * DIFFERENTIAL, MANUAL (12/03/2018 10:14 AM CDT) WBC Corrected 9.8 4.5 - 12.0 K/uL [facility] Neutrophil 62.0 34.0 - 67.9 % [facility] Lymphocyte 20.0 (L) 21.8 - 50.0 % [facility] Monocyte 14.0 (H) 5.3 - 12.0 % [facility] Eosinophil 2.0 0.8 - 5.0 % [facility] Basophil 2.0 (H) 0.2 - 1.2 % [facility] Segs + Bands, 6.08 K/uL [facility] Abs LAB Neutrophil, Abs 6.08 (H) 1.78 - 5.36 K/uL [facility] Lymphocyte, Abs 1.96 1.32 - 3.57 K/uL [facility] Monocyte, Abs 1.37 (H) 0.30 - 0.82 K/uL [facility] Eosinophil, Abs 0.20 0.04 - 0.54 K/uL [facility] Basophil, Abs 0.20 (H) 0.01 - 0.08 K/uL [facility] Cells Counted 100 [facility] Specimen Blood Performing Organization Address City/[facility]/Zipcode Phone Number [facility] [address] [place] [phone] [facility] [address] [place] [phone] * XRAY HAND 2 VIEWS (11/01/2018 [...] MD, 11/02/2018 12:46 PM Performing Organization Address [facility] Phone Number SMS * SJOGREN'S AB (11/01/2018 11:17 AM CDT) Pathologist [facility] Anti SS/A <0.2 LABORATORY Reference range: 0.0 to 0.9 CORPORATION OF Unit: AI [place] Anti SS/B <0.2 LABORATORY Reference range: 0.0 to 0.9 CORPORATION OF Unit: AI [place] Specimen Blood Products (Lab Use Only) - BLOOD Performing Organization Address [facility] Phone Number [employer] LABORATORY [facility] OF [address] [place] [address] HARRY 145 * QUANTIFERON TB GOLD (11/01/2018 11:06 AM CDT) [facility] QuantiFERON Comment LABORATORY Criteria (note) CORPORATION OF [...] [place]ARRY Specimen Performing Organization Address [facility] Phone Number [employer] LABORATORY [facility] OF [address] [place] [id number] HARRY 145 * QUANTIFERON TB GOLD (11/01/2018 11:06 AM CDT) [facility] QuantiFERON Incubation performed. LABORATORY Incubation CORPORATION OF [place] QuantiFERON TB Negative LABORATORY Gold Plus Reference range: Negative CORPORATION OF [place] Specimen Blood Performing Organization Address [facility] Phone Number [employer] [facility]AT[facility] CORPORATION OF [address] [facility] [place] [address] HARRY 145 * HEPATITIS PANEL (11/01/2018 11:06 [...] WBC 17.6 (H) 4.5 - 12.0 K/uL [facility] 2 RBC 4.70 4.60 - 6.20 M/uL [facility] 2 Hemoglobin 13.4 (L) 14.0 - 18.0 g/dL [place] [address] Hematocrit 41.7 40.0 - 54.0 % [place] [address] MCV 89 82 - 92 fL [facility] 2 MCH 28.5 27.0 - 31.0 pg [facility] 2 MCHC 32.1 32.0 - 36.0 g/dL [place] [address] RDW 50.9 (H) 35.1 - 43.9 fL [facility] 2 Platelets 247 150 - 400 K/uL [facility] 2 Neutrophils 62.3Comment: Corrected on 34.0 - 67.9 % [facility] 2 11/01 AT 1232: Previously reported as: 64.3 Lymphs 22.6 21.8 - 50.0 % [facility] 2 Monocytes 11.2 5.3 - 12.0 % [facility] 2 Eos 1.3 0.8 - 5.0 % [facility] 2 Basos 0.6 0.2 - 1.2 % [facility] 2 Neutrophils 10.96 (H)Comment: Corrected on 1.78 - 5.36 K/uL [facility] 2 (Absolute) 11/01 AT 1232: Previously reported as: 11.31 Lymphs 3.98 (H)Comment: Corrected on 1.32 - 3.57 K/uL [facility] 2 (Absolute) 11/01 AT 1232: Previously reported as: 3.96 Monocytes(Absol 1.97 (H)Comment: Corrected on 0.30 - 0.82 K/uL [facility] 2 [place]) 11/01 AT 1232: Previously reported as: 1.96 Eos (Absolute) 0.23Comment: Corrected on 0.04 - 0.54 K/uL [facility] 2 11/01 AT 1232: Previously reported as: 0.22 Baso (Absolute) 0.11 (H)Comment: Corrected on 0.01 - 0.08 K/uL [facility] 2 11/01 AT 1232: Previously reported as: 0.10 Atypical Lymph 2 % [facility] 2 Specimen Blood Performing Organization Address [facility] Phone Number [facility] 2 * COMPLEMENT C4 (11/01/2018 11:06 AM CDT) Complement C4 25.2 19 - 52 mg/dL [facility] MAIN-STATION 1 Specimen Blood Performing Organization Address [facility] Phone Number [facility] BT MAIN-STATION 1 * COMPLEMENT C3 (11/01/2018 11:06 AM CDT) Complement C3 141.2 87 - 200 mg/dL [facility]IN-[facility] 1 Specimen Blood Performing Organization Address [facility] Phone Number [facility] BT MAIN-STATION 1 * SANDY (11/01/2018 11:06 AM CDT) SANDY Screen Negative NEG BT DIAGNOSTIC IMMUNOLOGY Specimen Blood Performing Organization Address [facility] Phone Number [facility] BT DIAGNOSTIC IMMUNOLOGY * UA CHEMISTRIES (11/01/2018 10:48 AM CDT) Color Yellow [facility]IN[facility] 2 Clarity Clear [facility] 2 Specific 1.019 1.001 - 1.035 [facility] Gary 2 pH 6.0 5 - 8 BT [...] MAIN-STATION 2 Specimen Urine Performing Organization Address [facility] Phone Number [facility]IN-ST[facility] 2 * T PROT/CREA RATIO,UR (11/01/2018 10:48 AM CDT) Creatinine, 182.5 20 - 370 mg/dL [facility] Urine 1 T Prot, Ur 0.26 g/L [facility] 1 T Prot/Crea 0.14 0.0 - 0.5 [facility] MAIN[facility] Ratio,Ur 1 Specimen Urine Performing Organization Address [facility] Phone Number [facility] MAIN-ST[facility] 1 * CCP IGG ABS (07/04/2018 12:20 PM BOARD CERTIFIED BEHAVIORAL ANALYST) CCP Abs IgG/IgA >250 LABORATORY Reference range: 0 to 19 CORPORATION OF Unit: units HARRY (note) Negative <20 Weak - 39 Moderate [id number] - 59 Strong positive>59 (H) Specimen Performing Organization Address [facility] Phone Number [facility] CORPORATION OF [address] [place], [place] [phone] HARRY 145 * CRP, HIGH SENS (07/04/2018 12:20 PM BOARD CERTIFIED BEHAVIORAL ANALYST) CRP, high sens 14.692 (H) <1.0 mg/dL [facility] 1 Specimen Blood Performing Organization Address [facility] Phone Number [facility] MAIN-STATION 1 * SED RATE (07/04/2018 12:20 PM BOARD CERTIFIED BEHAVIORAL ANALYST) Sed Rate 91 (H) <20 mm/Hr [facility]OD [facility] Specimen Blood Performing Organization Address [facility] Phone Number [facility] [address] [place] [phone] * RA FACTOR (07/04/2018 12:20 PM BOARD CERTIFIED BEHAVIORAL ANALYST) RA Factor 1,754 (H) <14 IU/mL [facility] MAIN-STATION 1 Specimen Blood Performing Organization Address [facility] Phone Number [facility] MAIN-STATION 1 after 12/25/2017 Insurance Type Payer Benefit Subscriber ID Effective Phone Address Plan / Dates Group [facility] xxxxxxxxxxxx 2018-P [phone] [address] [facility] [id number] [facility] [address] HCHD PLAN HCHD PLAN xxxxxxx 2018-9 [address] [place] [address]
--- OUTSIDE RECORDS SUMMARY | 2018-12-31 12:02 | XMS REPORT | Clinical Summary ---
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 UTI (urinary tract infection) 09/02/2012 Encounters Care Team Description Date Type Specialty Neptali Hearn NP Alexander, Ronda E, MD [...] Dx) 07/11/2018 Orders Only Ent-Otolaryngology Zac Maxwell ResidentNE 07/10/2018 E-Consult Ent-Otolaryngology Rhonda Crooks MD Vocal cord paresis; Rheumatoid arthritis involving multiple sites, unspecified rheumatoid factor presence 07/04/2018 Hospital Lab Encounter Rhonda Crooks MD Vocal cord paresis (Primary Dx); Rheumatoid arthritis involving multiple sites, unspecified rheumatoid factor presence; Shortness of breath 07/04/2018 Office Visit Ent-Otolaryngology 07/04/2018 Travel after 08/21/2017 Social History Date Tobacco Use Types Packs/Day Years Used Former Smoker Smokeless Tobacco: Never Used Sex Assigned at Date Recorded Not on file Industry Job Start Date Occupation Not on file Not on file Not on file Travel End Travel History Travel Start No recent travel history available. Last Filed Vital Signs Time Taken Vital Sign Reading 08/08/2018 9:19 AM [employer]ER [employer] Blood Pressure 122/81 08/08/2018 9:19 AM PAPER [employer] Pulse 58 08/08/2018 9:19 AM P[employer]ER [employer] Temperature 36.7 C (98 F) 08/08/2018 9:19 AM PAPER [employer]E [employer] Respiratory Rate 18 - Oxygen Saturation - - Inhaled Oxygen - Concentration 08/08/2018 9:19 AM PAPER [employer]E [employer]ER Weight 124.3 kg (274 lb) 08/08/2018 9:19 AM PAPER [employer]E [employer] Height 175.3 cm (5' 9") 08/08/2018 9:19 AM PAPER [employer]E GRADER Body Mass Index 40.46 Plan of Treatment Care Team Description Date Type Specialty Junior Haddad, Fellow() [address] [place] [address] Ref#[id number] 11/01/2018 Office Visit Rheumatology Health Maintenance Due Date Last Done Comments Colorectal Cancer Scrn 2016 Annual (FIT/FOBT) Age 50 to 75 IMM Influenza Seasonal 03/26/2018Mar to August (>/=19 yrs) Procedures Comments Procedure Name Priority Date/Time Associated Diagnosis CCP IGG ABS Routine 07/04/2018 12:20 PM PAPER CONE GRADER COMPREHENSIVE METABOLIC Routine 07/04/2018 Vocal cord paresis PANEL(DBIL NOT INCLUDED) 12:20 PM PAPER CONE GRADER Rheumatoid arthritis involving multiple sites, unspecified rheumatoid factor presence CBC/DIFF Routine 07/04/2018 Vocal cord paresis 12:20 PM PAPER CONE GRADER Rheumatoid arthritis involving multiple sites, unspecified rheumatoid factor presence SED RATE Routine 07/04/2018 Vocal cord paresis 12:20 PM PAPER CONE GRADER Rheumatoid arthritis involving multiple sites, unspecified rheumatoid factor presence CRP, HIGH SENS Routine 07/04/2018 Vocal cord paresis 12:20 PM PAPER CONE GRADER Rheumatoid arthritis involving multiple sites, unspecified rheumatoid factor presence RA FACTOR Routine 07/04/2018 Vocal cord paresis 12:20 PM PAPER CONE GRADER Rheumatoid arthritis involving multiple sites, unspecified rheumatoid factor presence after 08/21/2017 Results * COMPREHENSIVE METABOLIC PANEL(DBIL NOT INCLUDED) (07/04/2018 12:20 PM PAPER CONE GRADER) Albumin 3.4 (L) 4.2 - 5.5 g/dL [facility] 1 Calcium 9.1 8.6 - 10.3 mg/dL [facility]IN[facility] 1 CO2 27 21 - 31 mmol/L [facility] 1 Chloride 106 98 - 107 mmol/L [facility] 1 Creatinine 0.80 0.7 - 1.3 mg/dL [facility] 1 Glucose 89 70 - 110 mg/dL [facility] 1 Alk Phos 44 34 - 104 U/L [facility] 1 Potassium 4.3 3.5 - 5.1 mmol/L [facility] 1 Sodium 138 136 - 145 mmol/L [facility] 1 ALT 14 7 - 52 U/L [facility] AST 14 13 - 39 U/L [facility] 1 Urea Nitrogen 8 7 - 25 mg/dL [facility] T Bilirubin 0.5 0.2 - 1.2 mg/dL [facility] 1 T Protein 6.7 6.0 - 8.3 g/dL [facility] 1 GFR, Estimated >60 mL/min/1.73 m2 [facility] GFR, Estim, >60 mL/min/1.73 m2 [facility] Afr-Am MAIN-STATION 1 Anion Gap 5 [facility] 1 Specimen Blood Performing Organization Address [facility] Phone Number [facility]ATION 1 * CCP IGG ABS (07/04/2018 12:20 PM PAPER CONE GRADER) [facility] CCP Abs IgG/IgA >250 LABORATORY Reference range: 0 to 19 CORPORATION OF Unit: units HARRY (note) Negative <20 Weak [id number] - 39 Moderate [id number] - 59 Strong positive>59 (H) Performing Organization Address [facility] [email or web address] Phone Number [employer] LABORATORY CORPORATION OF [address] [facility] [place] [address] HARRY 145 * CRP, HIGH SENS (07/04/2018 12:20 PM PAPER CONE GRADER) [facility] CRP, high sens 14.692 (H) <1.0 mg/dL [facility] 1 Specimen Blood Performing Organization Address [facility] Phone Number [facility] 1 * SED RATE (07/04/2018 12:20 PM PAPER CONE GRADER) Sed Rate 91 (H) <20 mm/Hr [facility] Specimen Blood Performing Organization Address City/State/Zipcode Phone Number [facility] * RA FACTOR (07/04/2018 12:20 PM PAPER CONE GRADER) RA Factor 1,754 (H) <14 IU/mL [facility]IN-[facility] 1 Specimen Blood Performing Organization Address City/State/Zipcode Phone Number [facility] 1 * CBC/DIFF (07/04/2018 12:20 PM PAPER CONE GRADER) WBC 15.2 (H) 4.5 - 12.0 K/uL [facility] 2 RBC 4.87 4.60 - 6.20 M/uL [facility] 2 Hemoglobin 12.6 (L) 14.0 - 18.0 g/dL [facility] 2 Hematocrit 42.1 40.0 - 54.0 % [facility] 2 MCV 86 82 - 92 fL [facility] 2 MCH 25.9 (L) 27.0 - 31.0 pg [facility] 2 MCHC 29.9 (L) 32.0 - 36.0 g/dL [facility] 2 RDW 53.5 (H) 35.1 - 43.9 fL [facility] 2 Platelet 245 150 - 400 K/uL [facility] 2 Mean Platelet 9.9 9.4 - 12.4 fL [facility] Volume MAIN-STATION 2 Percent NRBC 0.0 [facility] MAIN-STATION 2 Absolute NRBC 0.00 [facility]IN-ST[facility] 2 Neutrophil 76.0 (H) 34.0 - 67.9 % [facility] 2 Lymphocyte 13.0 (L) 21.8 - 50.0 % [facility] 2 Monocyte 7.0 5.3 - 12.0 % [facility] 2 Eosinophil 1.0 0.8 - 5.0 % [facility] 2 Basophil 1.0 0.2 - 1.2 % [facility] 2 Neutrophil, Abs 11.56 (H) 1.78 - 5.36 K/uL [facility] 2 Lymphocyte, Abs 1.98 1.32 - 3.57 K/uL [facility] 2 Monocyte, Abs 1.06 (H) 0.30 - 0.82 K/uL [facility] 2 Eosinophil, Abs 0.15 0.04 - 0.54 K/uL [facility] 2 Basophil, Abs 0.15 (H) 0.01 - 0.08 K/uL [facility] 2 Atypical Lymph 2 % [facility] 2 Specimen Blood Performing Organization Address City/State/Zipcode Phone Number [facility] 2 after 08/21/2017 Insurance Type Payer Benefit Subscriber ID Effective Phone Address Plan / Dates Group [facility] xxxxxxxxxxxx 2018-P [phone] [address] [facility] [address] [place] [id number] [facility] [address] HC PLAN [facility] PLAN xxxxxxxxxxxx 2018- [phone] [address] [place] [address]
--- OUTSIDE RECORDS SUMMARY | 2018-12-31 12:03 | XMS REPORT | Clinical Summary ---
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 UTI (urinary tract infection) 09/02/2012 Encounters Care Team Description Date Type Specialty Junior Haddad, Fellow() Arrived 11/01/2018 Office Visit Rheumatology 11/01/2018 Neptali Rogel NP Alexander, Ronda E, MD Vocal cord [...] Surgery Reba Grullon Interpretation 08/08/2018 Telephone 08/08/2018 Rhonda Tan MD Rheumatoid arthritis involving multiple sites, unspecified rheumatoid factor presence (Primary Dx) 07/20/2018 Orders Only Ent-Otolaryngology Rhonda Oconnell MD Rheumatoid arteritis (Primary Dx) 07/11/2018 Orders Only Ent-Otolaryngology Zac Maxwell ResidentMD 07/10/2018 E-Consult Ent-Otolaryngology Rhonda Oconnell MD Vocal cord paresis; Rheumatoid arthritis involving multiple sites, unspecified rheumatoid factor presence 07/04/2018 Hospital Lab Encounter Rhonda Oconnell MD Vocal cord paresis (Primary Dx); Rheumatoid arthritis involving multiple sites, unspecified rheumatoid factor presence; Shortness of breath 07/04/2018 Office Visit Ent-Otolaryngology 07/04/2018 Travel after 10/31/2017 Social History Date Tobacco Use Types Packs/Day Years Used Former Smoker Smokeless Tobacco: Never Used Sex Assigned at Date Recorded Not on file Industry Job Start Date Occupation Not on file Not on file Not on file Travel End Travel History Travel Start No recent travel history available. Last Filed Vital Signs Time Taken Vital Sign Reading 11/01/2018 10:04 AM CDT Blood Pressure 121/69 11/01/2018 10:04 AM CDT Pulse 66 11/01/2018 10:04 AM CDT Temperature 36.7 C (98.1 F) 11/01/2018 10:04 AM CDT Respiratory Rate 20 - Oxygen Saturation - - Inhaled Oxygen - Concentration 11/01/2018 10:04 AM CDT Weight 125 kg (275 lb 8 oz) 11/01/2018 10:04 AM CDT Height 175.3 cm (5' 9") 11/01/2018 10:04 AM CDT Body Mass Index 40.68 Plan of Treatment Care Team Description Date Type Specialty TO SEE DR OCONNELL 11/23/2018 Office Visit Ent-Otolaryngology Health Maintenance Due Date Last Done Comments Colorectal Cancer Scrn 2016 Annual (FIT/FOBT) Age 50 to 75 IMM Influenza Seasonal 03/26/2019 Oct to August (>/=19 yrs) Procedures Comments Procedure Name Priority Date/Time Associated Diagnosis CCP IGG ABS Routine 07/04/2018 12:20 PM FLAME CHANNELER COMPREHENSIVE METABOLIC Routine 07/04/2018 Vocal cord paresis PANEL(DBIL NOT INCLUDED) 12:20 PM FLAME CHANNELER Rheumatoid arthritis involving multiple sites, unspecified rheumatoid factor presence CBC/DIFF Routine 07/04/2018 Vocal cord paresis 12:20 PM FLAME CHANNELER Rheumatoid arthritis involving multiple sites, unspecified rheumatoid factor presence SED RATE Routine 07/04/2018 Vocal cord paresis 12:20 PM FLAME CHANNELER Rheumatoid arthritis involving multiple sites, unspecified rheumatoid factor presence CRP, HIGH SENS Routine 07/04/2018 Vocal cord paresis 12:20 PM FLAME CHANNELER Rheumatoid arthritis involving multiple sites, unspecified rheumatoid factor presence RA FACTOR Routine 07/04/2018 Vocal cord paresis 12:20 PM FLAME CHANNELER Rheumatoid arthritis involving multiple sites, unspecified rheumatoid factor presence after 10/31/2017 Results * COMPREHENSIVE METABOLIC PANEL(DBIL NOT INCLUDED) (07/04/2018 12:20 PM FLAME CHANNELER) Pathologist [facility] Albumin 3.4 (L) 4.2 - 5.5 g/dL [facility] 1 Calcium 9.1 8.6 - 10.3 mg/dL [facility] 1 CO2 27 21 - 31 mmol/L [facility] 1 Chloride 106 98 - 107 mmol/L [facility] 1 Creatinine 0.80 0.7 - 1.3 mg/dL [facility] 1 Glucose 89 70 - 110 mg/dL [facility] 1 Alk Phos 44 34 - 104 U/L [facility] 1 Potassium 4.3 3.5 - 5.1 mmol/L [facility] MA[facility] 1 Sodium 138 136 - 145 mmol/L [facility] 1 ALT 14 7 - 52 U/L [facility] 1 AST 14 13 - 39 U/L [facility] 1 Urea Nitrogen 8 7 - 25 mg/dL [facility] 1 T Bilirubin 0.5 0.2 - 1.2 mg/dL [facility] 1 T Protein 6.7 6.0 - 8.3 g/dL [facility] 1 GFR, Estimated >60 mL/min/1.73 m2 [facility] MAIN-ST[facility] 1 GFR, Estim, >60 mL/min/1.73 m2 [facility] Afr-Am MAIN-STATION 1 Anion Gap 5 [facility]IN[facility] 1 Specimen Blood Performing Organization Address [facility] Cent[facility]ode Phone Number MISYS [facility] MAIN-STATION 1 * CCP IGG ABS (07/04/2018 12:20 PM FLAME CHANNELER) Pathologist [facility] CCP Abs IgG/IgA >250 LABORATORY Reference range: 0 to 19 CORPORATION OF Unit: units HARRY (note) Negative <20 Weak gkoxgwuf14 - 39 Moderate pqxskwas39 - 59 Strong positive>59 (H) Performing Organization Address City/[facility]/Zipcode Phone Number [employer] LABORATORY CORPORATION OF [address] [facility] [place] [address] [facility] 145 * CRP, HIGH SENS (07/04/2018 12:20 PM FLAME CHANNELER) CRP, high sens 14.692 (H) <1.0 mg/dL [facility]IN-STATION 1 Specimen Blood Performing Organization Address [facility] Centercotn Phone Number [facility] MAIN-STATION 1 * SED RATE (07/04/2018 12:20 PM FLAME CHANNELER) Pathologist [facility] Sed Rate 91 (H) <20 mm/Hr [facility]OD B[facility] Specimen Blood Performing Organization Address [facility]n Phone Number [facility] BLOOD BANK * RA FACTOR (07/04/2018 12:20 PM FLAME CHANNELER) Pathologist [facility] RA Factor 1,754 (H) <14 IU/mL [facility] MAIN-STATION 1 Specimen Blood Performing Organization Address [facility]otn Phone Number [facility] BT MAIN-STATION 1 * CBC/DIFF (07/04/2018 12:20 PM FLAME CHANNELER) Pathologist [facility] WBC 15.2 (H) 4.5 - 12.0 K/uL [facility] 2 RBC 4.87 4.60 - 6.20 M/uL [facility] 2 Hemoglobin 12.6 (L) 14.0 - 18.0 g/dL [facility] 2 Hematocrit 42.1 40.0 - 54.0 % [facility] MAIN-STATION 2 MCV 86 82 - 92 fL [facility] 2 MCH 25.9 (L) 27.0 - 31.0 pg [facility] MAIN-STATION 2 MCHC 29.9 (L) 32.0 - 36.0 g/dL [facility] 2 RDW 53.5 (H) 35.1 - 43.9 fL [facility] MAIN-STATION 2 Platelet 245 150 - 400 K/uL [facility] MAIN-STATION 2 Mean Platelet 9.9 9.4 - 12.4 fL [facility] Volume MAIN-STATION 2 Percent NRBC 0.0 [facility] MAIN-STATION 2 Absolute NRBC 0.00 [facility] MAIN-STATION 2 Neutrophil 76.0 (H) 34.0 - 67.9 % [facility] MAIN-STATION 2 Lymphocyte 13.0 (L) 21.8 - 50.0 % [facility] MAIN-STATION 2 Monocyte 7.0 5.3 - 12.0 [...] Performing Organization Address City/State/Zipcode Phone Number MISYS [facility]IN-STATION 2 after 10/31/2017 Insurance Type Payer Benefit Subscriber ID Effective Phone Address Plan / Dates Group [facility] xxxxxxxxxxxx 2018-P [phone] resent [id number] [facility] E [address] [facility] [place] xxxxxxx 2018-P [phone] [facility] FAMILY resent [id number] [place], [place] INDIGENT [address] [facility] PLAN [facility] PLAN xxxxxxx 2018-9 [address] [place] [address]
--- OUTSIDE RECORDS SUMMARY | 2018-12-31 12:03 | XMS REPORT | Clinical Summary ---
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 UTI (urinary tract infection) 09/02/2012 Encounters Care Team Description Date Type Specialty Rosangela Ramos 08/27/2018 Clinical Case Mgt Neptali [...] Dx) 07/11/2018 Orders Only Ent-Otolaryngology Zac Maxwell ResidentWV 07/10/2018 E-Consult Ent-Otolaryngology Rhonda Crooks MD Vocal cord paresis; Rheumatoid arthritis involving multiple sites, unspecified rheumatoid factor presence 07/04/2018 Hospital Lab Encounter Rhonad Crooks MD Vocal cord paresis (Primary Dx); Rheumatoid arthritis involving multiple sites, unspecified rheumatoid factor presence; Shortness of breath 07/04/2018 Office Visit Ent-Otolaryngology 07/04/2018 Travel after 08/26/2017 Social History Date Tobacco Use Types Packs/Day Years Used Former Smoker Smokeless Tobacco: Never Used Sex Assigned at Date Recorded Not on file Industry Job Start Date Occupation Not on file Not on file Not on file Travel End Travel History Travel Start No recent travel history available. Last Filed Vital Signs Time Taken Vital Sign Reading 08/08/2018 9:19 AM GAMES DEALER Blood Pressure 122/81 08/08/2018 9:19 AM GAMES DEALER Pulse 58 08/08/2018 9:19 AM GAMES DEALER Temperature 36.7 C (98 F) 08/08/2018 9:19 AM GAMES DEALER Respiratory Rate 18 - Oxygen Saturation - - Inhaled Oxygen - Concentration 08/08/2018 9:19 AM GAMES DEALER Weight 124.3 kg (274 lb) 08/08/2018 9:19 AM GAMES DEALER Height 175.3 cm (5' 9") 08/08/2018 9:19 AM GAMES DEALER Body Mass Index 40.46 Plan of Treatment Care Team Description Date Type Specialty Neptali Hearn NP [facility] Clinical Office [address] [place] [address] [id number] 09/05/2018 Office Visit Ent-Otolaryngology Junior Haddad, Fellow() [address] [place] [address] Ref#[id number] 11/01/2018 Office Visit Rheumatology Health Maintenance Due Date Last Done Comments Colorectal Cancer Scrn 2016 Annual (FIT/FOBT) Age 50 to 75 IMM Influenza Seasonal 03/26/2018Mar to August (>/=19 yrs) Procedures Comments Procedure Name Priority Date/Time Associated Diagnosis CCP IGG ABS Routine 07/04/2018 12:20 PM GAMES DEALER COMPREHENSIVE METABOLIC Routine 07/04/2018 Vocal cord paresis PANEL(DBIL NOT INCLUDED) 12:20 PM GAMES DEALER Rheumatoid arthritis involving multiple sites, unspecified rheumatoid factor presence CBC/DIFF Routine 07/04/2018 Vocal cord paresis 12:20 PM GAMES DEALER Rheumatoid arthritis involving multiple sites, unspecified rheumatoid factor presence SED RATE Routine 07/04/2018 Vocal cord paresis 12:20 PM GAMES DEALER Rheumatoid arthritis involving multiple sites, unspecified rheumatoid factor presence CRP, HIGH SENS Routine 07/04/2018 Vocal cord paresis 12:20 PM GAMES DEALER Rheumatoid arthritis involving multiple sites, unspecified rheumatoid factor presence RA FACTOR Routine 07/04/2018 Vocal cord paresis 12:20 PM GAMES DEALER Rheumatoid arthritis involving multiple sites, unspecified rheumatoid factor presence after 08/26/2017 Results * COMPREHENSIVE METABOLIC PANEL(DBIL NOT INCLUDED) (07/04/2018 12:20 PM GAMES DEALER) Pathologist [facility] Albumin 3.4 (L) 4.2 - 5.5 g/dL [facility] 1 Calcium 9.1 8.6 - 10.3 mg/dL [facility] 1 CO2 27 21 - 31 mmol/L [facility] 1 Chloride 106 98 - 107 mmol/L [facility] 1 Creatinine 0.80 0.7 - 1.3 mg/dL [facility] 1 Glucose 89 70 - 110 mg/dL [facility] 1 Alk Phos 44 34 - 104 U/L [facility] 1 Potassium 4.3 3.5 - 5.1 mmol/L [facility] 1 Sodium 138 136 - 145 mmol/L [facility] 1 ALT 14 7 - 52 U/L [facility] 1 AST 14 13 - 39 U/L [facility] 1 Urea Nitrogen 8 7 - 25 mg/dL [facility] 1 T Bilirubin 0.5 0.2 - 1.2 mg/dL [facility] 1 T Protein 6.7 6.0 - 8.3 g/dL [facility] 1 GFR, Estimated >60 mL/min/1.73 m2 [facility] 1 GFR, Estim, >60 mL/min/1.73 m2 [facility] Afr-Am MAIN-STATION 1 Anion Gap 5 [facility] 1 Specimen Blood Performing Organization Address [facility]ode Phone Number MISYS [facility]IN[facility] 1 * CCP IGG ABS (07/04/2018 12:20 PM GAMES DEALER) [facility] CCP Abs IgG/IgA >250 LABORATORY Reference range: 0 to 19 CORPORATION OF Unit: units HARRY (note) Negative <20 Weak - 39 Moderate [id number] - 59 Strong positive>59 (H) Performing Organization Address City/[facility]/Zipcode Phone Number [employer] LABORATORY CORPORATION OF [address] [facility], [place] [address] HARRY 145 * CRP, HIGH SENS (07/04/2018 12:20 PM GAMES DEALER) CRP, high sens 14.692 (H) <1.0 mg/dL [facility]IN-ST[facility] 1 Specimen Blood Performing Organization Address [facility] Phone Number [facility] 1 * SED RATE (07/04/2018 12:20 PM GAMES DEALER) Pathologist [facility] Sed Rate 91 (H) <20 mm/Hr [facility]OD [facility] Specimen Blood Performing Organization Address [facility] Phone Number [facility] BLOOD [facility] * RA FACTOR (07/04/2018 12:20 PM GAMES DEALER) Pathologist [facility] RA Factor 1,754 (H) <14 IU/mL [facility] MAIN-STATION 1 Specimen Blood Performing Organization Address [facility] Phone Number [facility] BT MAIN-STATION 1 * CBC/DIFF (07/04/2018 12:20 PM GAMES DEALER) WBC 15.2 (H) 4.5 - 12.0 K/uL [...] MCHC 29.9 (L) 32.0 - 36.0 g/dL [facility] MA[facility] 2 RDW 53.5 (H) 35.1 - [...] 2 Monocyte 7.0 5.3 - 12.0 % [facility] MAIN-STATION 2 Eosinophil 1.0 0.8 - 5.0 [...] Phone Number MISYS [facility] 2 after 08/26/2017 Insurance Type Payer Benefit Subscriber ID Effective Phone Address Plan / Dates Group [facility] xxxxxxxxxxxx 2018-P [phone] [address] [facility] [id number] [facility] [address] [facility] PLAN [facility] PLAN xxxxxxxxxxxx 2018- [phone] [address] [place] [address]
--- OUTSIDE RECORDS SUMMARY | 2018-12-31 12:04 | XMS REPORT | Clinical Summary ---
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 Last Filed Vital Signs Time Taken Vital Sign Reading 07/04/2018 10:09 AM GRILL CHEF Blood Pressure 127/74 07/04/2018 10:09 AM GRILL CHEF Pulse 59 07/04/2018 10:09 AM GRILL CHEF Temperature 36.7 C (98 F) 07/04/2018 10:09 AM GRILL CHEF Respiratory Rate 18 - Oxygen Saturation - - Inhaled Oxygen - Concentration 07/04/2018 10:09 AM GRILL CHEF Weight 121.1 kg (267 lb) 07/04/2018 10:09 AM GRILL CHEF Height 175.3 cm (5' 9") 07/04/2018 10:09 AM GRILL CHEF Body Mass Index 39.43 Plan of Treatment Health Maintenance Due Date Last Done Comments Colorectal Cancer Scrn 2016 Annual (FIT/FOBT) Age 50 to 75 IMM Influenza Seasonal 03/26/2018Mar to August (>/=19 yrs) Results Not on fileafter 07/03/2017 Insurance Type Payer Benefit Subscriber ID Effective Phone Address Plan / Dates Group [facility] PLAN [facility] PLAN xxxxxxxxxxxx 2018- [phone] [address] [place] [address]
--- OUTSIDE RECORDS SUMMARY | 2018-12-31 12:04 | XMS REPORT | Clinical Summary ---
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 UTI (urinary tract infection) 09/02/2012 Encounters Care Team Description Date Type Specialty Rhonda Crooks MD Rheumatoid arthritis involving multiple sites, unspecified rheumatoid factor presence (Primary Dx) 07/20/2018 Orders Only Ent-Otolaryngology Rhonda Crooks MD Rheumatoid arteritis (Primary Dx) 07/11/2018 Orders Only Ent-Otolaryngology Zac Maxwell ResidentPR 07/10/2018 E-Consult Ent-Otolaryngology Rhonda Crooks MD Vocal cord paresis; Rheumatoid arthritis involving multiple sites, unspecified rheumatoid factor presence 07/04/2018 Hospital Lab Encounter Rhonda Crooks MD Vocal cord paresis (Primary Dx); Rheumatoid arthritis involving multiple sites, unspecified rheumatoid factor presence; Shortness of breath 07/04/2018 Office Visit Ent-Otolaryngology 07/04/2018 Travel after 07/25/2017 Social History Date Tobacco Use Types Packs/Day Years Used Former Smoker Smokeless Tobacco: Never Used Sex Assigned at Date Recorded Not on file Industry Job Start Date Occupation Not on file Not on file Not on file Travel End Travel History Travel Start No recent travel history available. Last Filed Vital Signs Time Taken Vital Sign Reading 07/04/2018 10:09 AM PLASTERER SPRAY GUN Blood Pressure 127/74 07/04/2018 10:09 AM PLASTERER SPRAY GUN Pulse 59 07/04/2018 10:09 AM PLASTERER SPRAY GUN Temperature 36.7 C (98 F) 07/04/2018 10:09 AM PLASTERER SPRAY GUN Respiratory Rate 18 - Oxygen Saturation - - Inhaled Oxygen - Concentration 07/04/2018 10:09 AM PLASTERER SPRAY GUN Weight 121.1 kg (267 lb) 07/04/2018 10:09 AM PLASTERER SPRAY GUN Height 175.3 cm (5' 9") 07/04/2018 10:09 AM PLASTERER SPRAY GUN Body Mass Index 39.43 Plan of Treatment Care Team Description Date Type Specialty Neptali Hearn NP [email or web address] ENT Clinical Office [address] [place] [address] Rhonda Crooks MD [address] [facility] [place] [address] Crooks 08/08/2018 Office Visit Ent-Otolaryngology Health Maintenance Due Date Last Done Comments Colorectal Cancer Scrn 2016 Annual (FIT/FOBT) Age 50 to 75 IMM Influenza Seasonal 03/26/2018Mar to August (>/=19 yrs) Procedures Comments Procedure Name Priority Date/Time Associated Diagnosis CCP IGG ABS Routine 07/04/2018 12:20 PM PLASTERER SPRAY GUN COMPREHENSIVE METABOLIC Routine 07/04/2018 Vocal cord paresis PANEL(DBIL NOT INCLUDED) 12:20 PM PLASTERER SPRAY GUN Rheumatoid arthritis involving multiple sites, unspecified rheumatoid factor presence CBC/DIFF Routine 07/04/2018 Vocal cord paresis 12:20 PM PLASTERER SPRAY GUN Rheumatoid arthritis involving multiple sites, unspecified rheumatoid factor presence SED RATE Routine 07/04/2018 Vocal cord paresis 12:20 PM PLASTERER SPRAY GUN Rheumatoid arthritis involving multiple sites, unspecified rheumatoid factor presence CRP, HIGH SENS Routine 07/04/2018 Vocal cord paresis 12:20 PM PLASTERER SPRAY GUN Rheumatoid arthritis involving multiple sites, unspecified rheumatoid factor presence RA FACTOR Routine 07/04/2018 Vocal cord paresis 12:20 PM PLASTERER SPRAY GUN Rheumatoid arthritis involving multiple sites, unspecified rheumatoid factor presence after 07/25/2017 Results * COMPREHENSIVE METABOLIC PANEL(DBIL NOT INCLUDED) (07/04/2018 12:20 PM PLASTERER SPRAY GUN) Albumin 3.4 (L) 4.2 - 5.5 g/dL [facility]-STATION 1 Calcium 9.1 8.6 - 10.3 mg/dL [facility] MAIN-STATION 1 CO2 27 21 - 31 mmol/L [facility]-STATION 1 Chloride 106 98 - 107 mmol/L [facility]-STATION 1 Creatinine 0.80 0.7 - 1.3 mg/dL [facility]-STATION 1 Glucose 89 70 - 110 mg/dL [facility] MAIN-STATION 1 Alk Phos 44 34 - 104 U/L [facility] [address] Potassium 4.3 3.5 - 5.1 mmol/L [facility] [address] Sodium 138 136 - 145 mmol/L [facility] 1 ALT 14 7 - 52 U/L [facility] 1 AST 14 13 - 39 U/L [facility]-STATION 1 Urea Nitrogen 8 7 - 25 mg/dL [facility] 1 T Bilirubin 0.5 0.2 - 1.2 mg/dL [facility]-STATION 1 T Protein 6.7 6.0 - 8.3 g/dL [facility] 1 GFR, Estimated >60 mL/min/1.73 m2 [facility] 1 GFR, Estim, >60 mL/min/1.73 m2 [facility] Afr-Am MAIN-STATION 1 Anion Gap 5 [facility]-STATION 1 Specimen Blood Performing Organization Address [facility] Phone Number [facility] * CCP IGG ABS (07/04/2018 12:20 PM PLASTERER SPRAY GUN) [facility] CCP Abs IgG/IgA >250 LABORATORY Reference range: 0 to 19 CORPORATION OF Unit: units HARRY (note) Negative <20 Weak [id number] - 39 Moderate - 59 Strong positive>59 (H) Performing Organization Address [facility] Phone Number [employer] LABORATORY CORPORATION OF [address] [facility] [place] [id number] HARRY 145 * CRP, HIGH SENS (07/04/2018 12:20 PM PLASTERER SPRAY GUN) [facility] CRP, high sens 14.692 (H) <1.0 mg/dL [facility] Specimen Blood Performing Organization Address [facility] Phone Number [facility] 1 * SED RATE (07/04/2018 12:20 PM PLASTERER SPRAY GUN) Sed Rate 91 (H) <20 mm/Hr [facility]OD [facility] Specimen Blood Performing Organization Address City/State/Zipcode Phone Number MISYS [facility] BLOOD BANK * RA FACTOR (07/04/2018 12:20 PM PLASTERER SPRAY GUN) RA Factor 1,754 (H) <14 IU/mL [facility] MAIN-STATION 1 Specimen Blood Performing Organization Address City/State/Zipcode Phone Number MISYS [facility] MAIN-STATION 1 * CBC/DIFF (07/04/2018 12:20 PM PLASTERER SPRAY GUN) WBC 15.2 (H) 4.5 - 12.0 K/uL [...] Performing Organization Address City/State/Zipcode Phone Number [facility] MAIN-STATION 2 after 07/25/2017 Insurance Type Payer Benefit Subscriber ID Effective Phone Address Plan / Dates Group [facility] xxxxxxxxxxxx 2018-P [phone] [facility] [facility] [id number] [facility] [address] [address] [facility] PLAN [facility] PLAN xxxxxxxxxxxx 2018- [phone] [address] [place] [address]
--- OUTSIDE RECORDS SUMMARY | 2018-12-31 12:04 | XMS REPORT | Clinical Summary ---
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 UTI (urinary tract infection) 09/02/2012 Encounters Care Team Description Date Type Specialty Neptali Hearn NP Alexander, Ronda E, MD Arrived 09/05/2018 Office Visit Ent-Otolaryngology 09/05/2018 Travel [place] [...] Dx) 07/11/2018 Orders Only Ent-Otolaryngology Zac Maxwell ResidentDE 07/10/2018 E-Consult Ent-Otolaryngology Rhonda Crooks MD Vocal cord paresis; Rheumatoid arthritis involving multiple sites, unspecified rheumatoid factor presence 07/04/2018 Hospital Lab Encounter Rhonda Crooks MD Vocal cord paresis (Primary Dx); Rheumatoid arthritis involving multiple sites, unspecified rheumatoid factor presence; Shortness of breath 07/04/2018 Office Visit Ent-Otolaryngology 07/04/2018 Travel after 09/04/2017 Social History Date Tobacco Use Types Packs/Day Years Used Former Smoker Smokeless Tobacco: Never Used Sex Assigned at Date Recorded Not on file Industry Job Start Date Occupation Not on file Not on file Not on file Travel End Travel History Travel Start No recent travel history available. Last Filed Vital Signs Time Taken Vital Sign Reading 08/08/2018 9:19 AM STEAMING MACHINE OPERATOR Blood Pressure 122/81 08/08/2018 9:19 AM STEAMING MACHINE OPERATOR Pulse 58 08/08/2018 9:19 AM STEAMING MACHINE OPERATOR Temperature 36.7 C (98 F) 09/05/2018 10:12 AM CDT Respiratory Rate 18 - Oxygen Saturation - - Inhaled Oxygen - Concentration 09/05/2018 10:12 AM CDT Weight 121.6 kg (268 lb) 09/05/2018 10:12 AM CDT Height 175.3 cm (5' 9") 09/05/2018 10:12 AM CDT Body Mass Index 39.58 Plan of Treatment Care Team Description Date Type Specialty Junior Haddad, Fellow() [address] [place] [address] Ref#[id number] 11/01/2018 Office Visit Rheumatology Health Maintenance Due Date Last Done Comments Colorectal Cancer Scrn 2016 Annual (FIT/FOBT) Age 50 to 75 IMM Influenza Seasonal 03/26/2018Mar to August (>/=19 yrs) Procedures Comments Procedure Name Priority Date/Time Associated Diagnosis CCP IGG ABS Routine 07/04/2018 12:20 PM STEAMING MACHINE OPERATOR COMPREHENSIVE METABOLIC Routine 07/04/2018 Vocal cord paresis PANEL(DBIL NOT INCLUDED) 12:20 PM STEAMING MACHINE OPERATOR Rheumatoid arthritis involving multiple sites, unspecified rheumatoid factor presence CBC/DIFF Routine 07/04/2018 Vocal cord paresis 12:20 PM STEAMING MACHINE OPERATOR Rheumatoid arthritis involving multiple sites, unspecified rheumatoid factor presence SED RATE Routine 07/04/2018 Vocal cord paresis 12:20 PM STEAMING MACHINE OPERATOR Rheumatoid arthritis involving multiple sites, unspecified rheumatoid factor presence CRP, HIGH SENS Routine 07/04/2018 Vocal cord paresis 12:20 PM STEAMING MACHINE OPERATOR Rheumatoid arthritis involving multiple sites, unspecified rheumatoid factor presence RA FACTOR Routine 07/04/2018 Vocal cord paresis 12:20 PM STEAMING MACHINE OPERATOR Rheumatoid arthritis involving multiple sites, unspecified rheumatoid factor presence after 09/04/2017 Results * COMPREHENSIVE METABOLIC PANEL(DBIL NOT INCLUDED) (07/04/2018 12:20 PM STEAMING MACHINE OPERATOR) [facility] Albumin 3.4 (L) 4.2 - 5.5 g/dL [facility] 1 Calcium 9.1 8.6 - 10.3 mg/dL [facility] 1 CO2 27 21 - 31 mmol/L [facility] 1 Chloride 106 98 - 107 mmol/L [facility] 1 Creatinine 0.80 0.7 - 1.3 mg/dL [facility] 1 Glucose 89 70 - 110 mg/dL [facility] 1 Alk Phos 44 34 - 104 U/L [facility] 1 Potassium 4.3 3.5 - 5.1 mmol/L [facility] 1 Sodium 138 136 - 145 mmol/L [facility] 1 ALT 14 7 - 52 U/L [facility] 1 AST 14 13 - 39 U/L [facility] 1 Urea Nitrogen 8 7 - 25 mg/dL [facility] 1 T Bilirubin 0.5 0.2 - 1.2 mg/dL [facility] 1 T Protein 6.7 6.0 - 8.3 g/dL [facility] 1 GFR, Estimated >60 mL/min/1.73 m2 [facility] 1 GFR, Estim, >60 mL/min/1.73 m2 [facility] Afr-Am MAIN-STATION 1 Anion Gap 5 [facility] 1 Specimen Blood Performing Organization Address [facility] Phone [facility] 1 * CCP IGG ABS (07/04/2018 12:20 PM STEAMING MACHINE OPERATOR) [facility] CCP Abs IgG/IgA >250 LABORATORY Reference range: 0 to 19 CORPORATION OF Unit: units HARRY (note) Negative <20 Weak lvnjfjea38 - 39 Moderate narqykar37 - 59 Strong positive>59 (H) Performing Organization Address City/[facility]/Zipcode Phone Number [facility] OF [address] [facility] [place] [address] HARRY 145 * CRP, HIGH SENS (07/04/2018 12:20 PM STEAMING MACHINE OPERATOR) Pathologist [facility] CRP, high sens 14.692 (H) <1.0 mg/dL [facility] 1 Specimen Blood Performing Organization Address City/[facility] Phone Number [facility] 1 * SED RATE (07/04/2018 12:20 PM STEAMING MACHINE OPERATOR) Pathologist [facility] Sed Rate 91 (H) <20 mm/Hr [facility] Specimen Blood Performing Organization Address [facility] Phone Number [facility]OD [facility] * RA FACTOR (07/04/2018 12:20 PM STEAMING MACHINE OPERATOR) Pathologist [facility] RA Factor 1,754 (H) <14 IU/mL [facility] MAIN-STATION 1 Specimen Blood Performing Organization Address [facility] Phone Number [facility] * CBC/DIFF (07/04/2018 12:20 PM STEAMING MACHINE OPERATOR) Pathologist [facility] WBC 15.2 (H) 4.5 - 12.0 K/uL [facility] 2 RBC 4.87 4.60 - 6.20 M/uL [facility] 2 Hemoglobin 12.6 (L) 14.0 - 18.0 g/dL [facility] 2 Hematocrit 42.1 40.0 - 54.0 % [facility] 2 MCV 86 82 - 92 fL [facility] 2 MCH 25.9 (L) 27.0 - 31.0 pg LB [facility]IN[facility]STATION 2 MCHC 29.9 (L) 32.0 - 36.0 g/dL [facility] 2 RDW 53.5 (H) 35.1 - 43.9 fL LB [facility]STATION 2 Platelet 245 150 - 400 K/uL [facility] 2 Mean Platelet 9.9 9.4 - 12.4 fL [facility] Volume [facility] 2 Percent NRBC 0.0 [facility] 2 Absolute NRBC 0.00 [facility] 2 Neutrophil 76.0 (H) 34.0 - 67.9 % [facility] 2 Lymphocyte 13.0 (L) 21.8 - 50.0 % [facility] 2 Monocyte 7.0 5.3 - 12.0 % [facility] 2 Eosinophil 1.0 0.8 - 5.0 % [facility] 2 Basophil 1.0 0.2 - 1.2 [...] Phone Number [facility] 2 after 09/04/2017 Insurance Type Payer Benefit Subscriber ID Effective Phone Address Plan / Dates Group [facility] xxxxxxxxxxxx 2018-P [phone] resent [id number] [facility] E [address] [employer] PLAN HCHD PLAN xxxxxxxxxxxx 2018- [phone] [address] [place] [address]
--- OUTSIDE RECORDS SUMMARY | 2018-12-31 12:05 | XMS REPORT | Clinical Summary ---
Author Author [facility] Organization [facility] Address Unknown Phone Unavailable Care Team Providers Care President And Chief Operating Officer Name Role Phone PCP Unavailable Allergies Comments [...] Dx) 07/11/2018 Orders Only Ent-Otolaryngology Zac Maxwell ResidentMI 07/10/2018 E-Consult Ent-Otolaryngology Rhonda Crooks MD Vocal cord paresis; Rheumatoid arthritis involving multiple sites, unspecified rheumatoid factor presence 07/04/2018 Hospital Lab Encounter Rhonda Crooks MD Vocal cord paresis (Primary Dx); Rheumatoid arthritis involving multiple sites, unspecified rheumatoid factor presence; Shortness of breath 07/04/2018 Office Visit Ent-Otolaryngology 07/04/2018 Travel after 08/06/2017 Social History Date Tobacco Use Types Packs/Day Years Used Former Smoker Smokeless Tobacco: Never Used Sex Assigned at Date Recorded Not on file Industry Job Start Date Occupation Not on file Not on file Not on file Travel End Travel History Travel Start No recent travel history available. Last Filed Vital Signs Time Taken Vital Sign Reading 07/04/2018 10:09 AM WINE CELLAR STOCK CLERK Blood Pressure 127/74 07/04/2018 10:09 AM WINE CELLAR STOCK CLERK Pulse 59 07/04/2018 10:09 AM WINE CELLAR STOCK CLERK Temperature 36.7 C (98 F) 07/04/2018 10:09 AM WINE CELLAR STOCK CLERK Respiratory Rate 18 - Oxygen Saturation - - Inhaled Oxygen - Concentration 07/04/2018 10:09 AM WINE CELLAR STOCK CLERK Weight 121.1 kg (267 lb) 07/04/2018 10:09 AM WINE CELLAR STOCK CLERK Height 175.3 cm (5' 9") 07/04/2018 10:09 AM WINE CELLAR STOCK CLERK Body Mass Index 39.43 Plan of Treatment Care Team Description Date Type Specialty Neptali Hearn NP [facility] ENT Clinical Office [address] [place] [address] Rhonda Crooks MD [address] [facility] [place] [address] Crooks 08/08/2018 Office Visit Ent-Otolaryngology Health Maintenance Due Date Last Done Comments Colorectal Cancer Scrn 2016 Annual (FIT/FOBT) Age 50 to 75 IMM Influenza Seasonal 03/26/2018Mar to August (>/=19 yrs) Procedures Comments Procedure Name Priority Date/Time Associated Diagnosis CCP IGG ABS Routine 07/04/2018 12:20 PM WINE CELLAR STOCK CLERK COMPREHENSIVE METABOLIC Routine 07/04/2018 Vocal cord paresis PANEL(DBIL NOT INCLUDED) 12:20 PM WINE CELLAR STOCK CLERK Rheumatoid arthritis involving multiple sites, unspecified rheumatoid factor presence CBC/DIFF Routine 07/04/2018 Vocal cord paresis 12:20 PM WINE CELLAR STOCK CLERK Rheumatoid arthritis involving multiple sites, unspecified rheumatoid factor presence SED RATE Routine 07/04/2018 Vocal cord paresis 12:20 PM WINE CELLAR STOCK CLERK Rheumatoid arthritis involving multiple sites, unspecified rheumatoid factor presence CRP, HIGH SENS Routine 07/04/2018 Vocal cord paresis 12:20 PM WINE CELLAR STOCK CLERK Rheumatoid arthritis involving multiple sites, unspecified rheumatoid factor presence RA FACTOR Routine 07/04/2018 Vocal cord paresis 12:20 PM WINE CELLAR STOCK CLERK Rheumatoid arthritis involving multiple sites, unspecified rheumatoid factor presence after 08/06/2017 Results * COMPREHENSIVE METABOLIC PANEL(DBIL NOT INCLUDED) (07/04/2018 12:20 PM WINE CELLAR STOCK CLERK) Albumin 3.4 (L) 4.2 - 5.5 g/dL [facility]IN-STATION 1 Calcium 9.1 8.6 - 10.3 mg/dL [facility] 1 CO2 27 21 - 31 mmol/L [facility] 1 Chloride 106 98 - 107 mmol/L [facility] 1 Creatinine 0.80 0.7 - 1.3 mg/dL [facility] 1 Glucose 89 70 - 110 mg/dL [facility] 1 Alk Phos 44 34 - 104 U/L [facility] [address] Potassium 4.3 3.5 - 5.1 mmol/L [facility] [address] Sodium 138 136 - 145 mmol/L [facility] 1 ALT 14 7 - 52 U/L [facility] 1 AST 14 13 - 39 U/L [facility] 1 Urea Nitrogen 8 7 - 25 mg/dL [facility] 1 T Bilirubin 0.5 0.2 - 1.2 mg/dL [facility] 1 T Protein 6.7 6.0 - 8.3 g/dL [facility] 1 GFR, Estimated >60 mL/min/1.73 m2 [facility] 1 GFR, Estim, >60 mL/min/1.73 m2 [facility] Afr-Am MAIN-STATION 1 Anion Gap 5 [facility] 1 Specimen Blood Performing Organization Address [facility] Phone Number [facility] * CCP IGG ABS (07/04/2018 12:20 PM WINE CELLAR STOCK CLERK) [facility] CCP Abs IgG/IgA >250 LABORATORY Reference range: 0 to 19 CORPORATION OF Unit: units HARRY (note) Negative <20 Weak didhidry41 - 39 Moderate nvaoocai82 - 59 Strong positive>59 (H) Performing Organization Address [facility] Phone Number [facility] OF [address] [facility] [place] [id number] HARRY 145 * CRP, HIGH SENS (07/04/2018 12:20 PM WINE CELLAR STOCK CLERK) [facility] CRP, high sens 14.692 (H) <1.0 mg/dL [facility] Specimen Blood Performing Organization Address [facility] Phone Number [facility] 1 * SED RATE (07/04/2018 12:20 PM WINE CELLAR STOCK CLERK) Sed Rate 91 (H) <20 mm/Hr [facility] Specimen Blood Performing Organization Address City/State/Zipcode Phone Number [facility]OD [facility] * RA FACTOR (07/04/2018 12:20 PM WINE CELLAR STOCK CLERK) RA Factor 1,754 (H) <14 IU/mL [facility]IN-[facility]ATION 1 Specimen Blood Performing Organization Address City/State/Zipcode Phone Number [facility] 1 * CBC/DIFF (07/04/2018 12:20 PM WINE CELLAR STOCK CLERK) WBC 15.2 (H) 4.5 - 12.0 K/uL [...] Phone Number [facility] 2 after 08/06/2017 Insurance Type Payer Benefit Subscriber ID Effective Phone Address Plan / Dates Group [facility] xxxxxxxxxxxx 2018-P [phone] [facility] resent [id number] [facility] E [address] [employer]CHD PLAN HCHD PLAN xxxxxxxxxxxx 2018- [phone] [address] [place] [address]
--- OUTSIDE RECORDS SUMMARY | 2018-12-31 12:05 | XMS REPORT | Clinical Summary ---
Author Author [facility] Organization [facility] Address Unknown Phone Unavailable Care Team Providers Care Well Shooter Name Role Phone PCP Unavailable Allergies Comments [...] arteritis (Primary Dx) 07/11/2018 Orders Only Ent-Otolaryngology Zca Maxwell ResidentOR 07/10/2018 E-Consult Ent-Otolaryngology Rhonda Crooks MD Vocal cord paresis; Rheumatoid arthritis involving multiple sites, unspecified rheumatoid factor presence 07/04/2018 Hospital Lab Encounter Rhonda Crooks MD Vocal cord paresis (Primary Dx); Rheumatoid arthritis involving multiple sites, unspecified rheumatoid factor presence; Shortness of breath 07/04/2018 Office Visit Ent-Otolaryngology 07/04/2018 Travel after 07/24/2017 Social History Date Tobacco Use Types Packs/Day Years Used Former Smoker Smokeless Tobacco: Never Used Sex Assigned at Date Recorded Not on file Industry Job Start Date Occupation Not on file Not on file Not on file Travel End Travel History Travel Start No recent travel history available. Last Filed Vital Signs Time Taken Vital Sign Reading 07/04/2018 10:09 AM MUSIC PROMOTER Blood Pressure 127/74 07/04/2018 10:09 AM MUSIC PROMOTER Pulse 59 07/04/2018 10:09 AM MUSIC PROMOTER Temperature 36.7 C (98 F) 07/04/2018 10:09 AM MUSIC PROMOTER Respiratory Rate 18 - Oxygen Saturation - - Inhaled Oxygen - Concentration 07/04/2018 10:09 AM MUSIC PROMOTER Weight 121.1 kg (267 lb) 07/04/2018 10:09 AM MUSIC PROMOTER Height 175.3 cm (5' 9") 07/04/2018 10:09 AM MUSIC PROMOTER Body Mass Index 39.43 Plan of Treatment Care Team Description Date Type Specialty Neptali Hearn NP [facility] ENT Clinical Office [address] [place] [address] Rhonda Crooks MD [address] [facility] [place] [address] Crooks 08/08/2018 Office Visit Ent-Otolaryngology Health Maintenance Due Date Last Done Comments Colorectal Cancer Scrn 2016 Annual (FIT/FOBT) Age 50 to 75 IMM Influenza Seasonal 03/26/2018Mar to August (>/=19 yrs) Procedures Comments Procedure Name Priority Date/Time Associated Diagnosis CCP IGG ABS Routine 07/04/2018 12:20 PM MUSIC PROMOTER COMPREHENSIVE METABOLIC Routine 07/04/2018 Vocal cord paresis PANEL(DBIL NOT INCLUDED) 12:20 PM MUSIC PROMOTER Rheumatoid arthritis involving multiple sites, unspecified rheumatoid factor presence CBC/DIFF Routine 07/04/2018 Vocal cord paresis 12:20 PM MUSIC PROMOTER Rheumatoid arthritis involving multiple sites, unspecified rheumatoid factor presence SED RATE Routine 07/04/2018 Vocal cord paresis 12:20 PM MUSIC PROMOTER Rheumatoid arthritis involving multiple sites, unspecified rheumatoid factor presence CRP, HIGH SENS Routine 07/04/2018 Vocal cord paresis 12:20 PM MUSIC PROMOTER Rheumatoid arthritis involving multiple sites, unspecified rheumatoid factor presence RA FACTOR Routine 07/04/2018 Vocal cord paresis 12:20 PM MUSIC PROMOTER Rheumatoid arthritis involving multiple sites, unspecified rheumatoid factor presence after 07/24/2017 Results * COMPREHENSIVE METABOLIC PANEL(DBIL NOT INCLUDED) (07/04/2018 12:20 PM MUSIC PROMOTER) Albumin 3.4 (L) 4.2 - 5.5 g/dL [facility] 1 Calcium 9.1 8.6 - 10.3 mg/dL [facility] 1 CO2 27 21 - 31 mmol/L [facility] 1 Chloride 106 98 - 107 mmol/L [facility] 1 Creatinine 0.80 0.7 - 1.3 mg/dL [facility] 1 Glucose 89 70 - 110 mg/dL [facility] 1 Alk Phos 44 34 - 104 U/L [facility] [address] Potassium 4.3 3.5 - 5.1 mmol/L [facility] [address] Sodium 138 136 - 145 mmol/L [facility] 1 ALT 14 7 - 52 U/L [facility] 1 AST 14 13 - 39 U/L [facility] 1 Urea Nitrogen 8 7 - 25 mg/dL [facility] 1 T Bilirubin 0.5 0.2 - 1.2 mg/dL [facility] 1 T Protein 6.7 6.0 - 8.3 g/dL [facility] 1 GFR, Estimated >60 mL/min/1.73 m2 [facility] 1 GFR, Estim, >60 mL/min/1.73 m2 [facility] Afr-Am MAIN-STATION 1 Anion Gap 5 [facility] 1 Specimen Blood Performing Organization Address [facility] Phone [facility] * CCP IGG ABS (07/04/2018 12:20 PM MUSIC PROMOTER) [facility] CCP Abs IgG/IgA >250 LABORATORY Reference range: 0 to 19 CORPORATION OF Unit: units HARRY (note) Negative <20 Weak meppdflu62 - 39 Moderate alozliit83 - 59 Strong positive>59 (H) Performing Organization Address [facility] Phone Number [facility] OF [address] [facility] [place] [phone] HARRY 145 * CRP, HIGH SENS (07/04/2018 12:20 PM MUSIC PROMOTER) [facility] CRP, high sens 14.692 (H) <1.0 mg/dL [facility] Specimen Blood Performing Organization Address [facility] Phone Number [facility] 1 * SED RATE (07/04/2018 12:20 PM MUSIC PROMOTER) Sed Rate 91 (H) <20 mm/Hr [facility] Specimen Blood Performing Organization Address City/State/Zipcode Phone Number [facility]OD [facility] * RA FACTOR (07/04/2018 12:20 PM MUSIC PROMOTER) RA Factor 1,754 (H) <14 IU/mL [facility]IN-[facility]ATION 1 Specimen Blood Performing Organization Address City/State/Zipcode Phone Number [facility]IN-[facility] 1 * CBC/DIFF (07/04/2018 12:20 PM MUSIC PROMOTER) WBC 15.2 (H) 4.5 - 12.0 K/uL [...] Phone Number [facility]E [facility]IN-ST[facility] 2 after 07/24/2017 Insurance Type Payer Benefit Subscriber ID Effective Phone Address Plan / Dates Group [facility] xxxxxxxxxxxx 2018-P [phone] [address] [facility] [id number] [facility] E [address] HCHD PLAN HCHD PLAN xxxxxxxxxxxx 2018- [phone] [address] [place] [address]
--- OUTSIDE RECORDS SUMMARY | 2018-12-31 12:06 | XMS REPORT | Summary of Care ---
Author Author [facility] Organization [facility] Address Unknown Phone Unavailable Encounter KHADIJAH Alanis(AL) [id number] Date(s): 12/06/17 - 12/07/17 [facility] [address] [place] [address]- Discharge Disposition: Home or Self Care Attending Physician: Alex Paz MD Admitting Physician: Alex Paz MD Vital Signs 1 2 3 Most recent to oldest [Reference Range]: 175.26 cm (12/06/17 11:52 PM) 175.26 cm (12/06/17 2:05 PM) Height 97.9 DegF (12/07/17 3:54 PM) 97.8 DegF (12/07/17 11:09 AM) 98 DegF (12/07/17 8:04 AM) Temperature Oral [96.4-99.1 DegF] 121/70 mmHg (12/07/17 3:54 PM) 113/72 mmHg (12/07/17 11:09 AM) 119/74 mmHg (12/07/17 8:04 AM) Blood Pressure [90-140/60-90 mmHg] 19 BRMIN (12/07/17 3:54 PM) 20 BRMIN (12/07/17 11:09 AM) 19 BRMIN (12/07/17 8:04 AM) Respiratory Rate [14-20 BRMIN] 62 bpm (12/07/17 3:54 PM) 58 bpm *LOW* (12/07/17 11:09 AM) 57 bpm *LOW* (12/07/17 8:04 AM) Peripheral Pulse Rate [60-100 bpm] 109.09 kg (12/07/17 9:00 AM) 109.091 kg (12/06/17 11:52 PM) 113.636 kg (12/06/17 2:05 PM) Weight 35.52 m2 (12/06/17 11:52 PM) 37 m2 (12/06/17 2:05 PM) Body Mass Index Problem List Condition Effective Dates Status Health Status Informant Pleural Resolved effusion(Confirmed) Rheumatoid Resolved arthritis(Confirmed) Allergies, Adverse Reactions, Alerts Substance Reaction Severity Status NKDA Active Medications acetaminophen 650 mg, 2 tab, Route: PO, Drug form: TAB, Q4H, Dosing Weight 113.636, kg, PRN Pa in 1-3/Temp > 100.4 F, Start date: 12/06/17 23:35:00 CDT, Duration: 30 day, Stop date: 01/05/18 23:34:00 CDT Notes: Do not exceed 4 gm/day. (Same as: Tylenol) Start Date: 12/06/17 Stop Date: 12/07/17 Status: Discontinued acetaminophen-hydrocodone 325 mg-5 mg oral tablet 1 tab, Route: PO, Drug Form: TAB, Dosing Weight 113.636, kg, Q4H, PRN Pain Score 4-6, Start date: 12/06/17 23:35:00 CDT, Duration: 30 day, Stop date: 01/05/18 2 3:34:00 CDT Notes: (Same as: Hudson 325/5) Do not exceed 4gm/day of acetaminophen. Start Date: 12/06/17 Stop Date: 12/07/17 Status: Discontinued dexamethasone 10 mg, 2.5 mL, Route: IM, Drug form: INJ, ONCE, Dosing Weight 113.636, kg, Prior ity: STAT, Start date: 12/06/17 14:10:00 CDT, Stop date: 12/06/17 14:10:00 CDT Start Date: 12/06/17 Stop Date: 12/06/17 Status: Completed DuoNeb inhalation solution 3 ml, Route: NEB, Drug Form: SOLN, Dosing Weight 113.636, kg, PRN, PRN Respirato ry Pathway, Start date: 12/06/17 14:09:00 CDT, Duration: 30 day, Stop date: 12/24 09/10 14:08:00 CDT Notes: (Same as: Duoneb) Start Date: 12/06/17 Stop Date: 12/07/17 Status: Discontinued DuoNeb inhalation solution 3 mL, Route: NEB, Drug Form: SOLN, Dosing Weight 113.636, kg, RQID, Start date: 12/07/17 7:00:00 CDT, Duration: 30 day, Stop date: 01/05/18 19:00:00 CDT Notes: (Same as: Duoneb) Start Date: 12/07/17 Stop Date: 12/07/17 Status: Discontinued Levaquin 750 mg, 150 mL, Route: IVPB, Drug form: SOLN, [id number], Dosing Weight 113.636, kg , Start date: 12/07/17 0:00:00 CDT, Duration: 5 day, Stop date: 12/11/17 0:00:00 CDT, ABX Indication: Pneumonia Notes: (Same as:Levaquin) Start Date: 12/07/17 Stop Date: 12/07/17 Status: Discontinued Lovenox 40 mg, 0.4 mL, Route: SUB-Q, Drug form: INJ, [id number], Dosing Weight 109.091, kg , Start date: 12/07/17 9:00:00 CDT, Duration: 30 day, Stop date: 01/05/18 9:00:0 0 CDT Notes: (Same as: Lovenox) Start Date: 12/07/17 Stop Date: 12/07/17 Status: Discontinued MethylPREDNISolone Dose Pack 4 mg oral tablet See Instructions, PO, Daily, Use as directed on label., # 1 Pack, 0 Refill(s), P harmacy: [place] [id number] Start Date: 12/07/17 Stop Date: 12/13/17 Status: Ordered MethylPREDNISolone Dose Pack 4 mg oral tablet 4 mg, PO, Daily, 0 Refill(s) Start Date: 12/07/17 Stop Date: 12/07/17 Status: Discontinued methylPREDNISolone ORAL tab 4 mg, 1 tab, Route: PO, Drug form: TAB, Daily, Dosing Weight 109.091, kg, Start date: 12/07/17 9:00:00 CDT, Duration: 30 day, Stop date: 01/05/18 9:00:00 CDT Notes: (Same as :Medrol) Take with food Start Date: 12/07/17 Stop Date: 12/07/17 Status: Discontinued NS 1,000 mL 1,000 mL, Rate: 75 ml/hr, Infuse over: 13.3 hr, Route: IV, Dosing Weight 113.636 kg, Total Volume: 1,000, Start date: 12/06/17 23:37:00 CDT, Duration: 30 day, S top date: 01/05/18 23:36:00 CDT, 2.38, m2 Start Date: 12/06/17 Stop Date: 12/07/17 Status: Discontinued ondansetron 4 mg, 2 mL, Route: IVP, Drug form: INJ, Q6H, Dosing Weight 113.636, kg, PRN Naus ea & Vomiting, Start date: 12/06/17 23:35:00 CDT, Duration: 30 day, Stop date: 01/05/18 23:34:00 CDT Notes: (Same as: Zofran) MEDICATION WASTE Product Size: 4 mgProduct Was kahlil: ___ mg Start Date: 12/06/17 Stop Date: 12/07/17 Status: Discontinued Tessalon Perles 100 mg, 1 cap, Route: PO, Drug form: CAP, TID, Dosing Weight 109.091, kg, PRN Co ugh, Start date: 12/07/17 0:04:00 CDT, Duration: 30 day, Stop date: 01/06/18 0:0 3:00 CDT Notes: (Same As: Tessalon Perles)"Do Not Crush" Start Date: 12/07/17 Stop Date: 12/07/17 Status: Discontinued Results ELECTROLYTES Most recent to 1 2 oldest [Reference Range]: Sodium Lvl [135-145 141 mEq/L 139 mEq/L mEq/L] (12/07/17 4:02 AM) (12/06/17 8:35 PM) Potassium Lvl 4.5 mEq/L 3.7 mEq/L [3.5-5.1 mEq/L] (12/07/17 4:02 AM) (12/06/17 8:35 PM) Chloride Lvl [95-109 105 mEq/L 103 mEq/L mEq/L] (12/07/17 4:02 AM) (12/06/17 8:35 PM) CO2 [24-32 mEq/L] 28 mEq/L 32 mEq/L (12/07/17 4:02 AM) (12/06/17 8:35 PM) AGAP [10.0-20.0 12.5 mEq/L 7.7 mEq/L mEq/L] (12/07/17 4:02 AM) *LOW* (12/06/17 8:35 PM) CHEM PANEL Most recent to 1 2 oldest [Reference Range]: Creatinine Lvl 0.96 mg/dL 0.85 mg/dL [0.50-1.40 mg/dL] (12/07/17 4:02 AM) (12/06/17 8:35 PM) eGFR 91 mL/min/1.73m2 1 101 mL/min/1.73m2 2 *NA* *NA* (12/07/17 4:02 AM) (12/06/17 8:35 PM) BUN [7-22 mg/dL] 8 mg/dL 9 mg/dL (12/07/17 4:02 AM) (12/06/17 8:35 PM) B/C Ratio [6-25] 11 (12/06/17 8:35 PM) Glucose Lvl [70-99 200 mg/dL 91 mg/dL mg/dL] *HI* (12/06/17 8:35 PM) (12/07/17 4:02 AM) Total Protein 7.1 g/dL [6.4-8.4 g/dL] (12/06/17 8:35 PM) Albumin Lvl [3.5-5.0 3.0 g/dL g/dL] *LOW* (12/06/17 8:35 PM) Globulin [2.7-4.2 4.1 g/dL g/dL] (12/06/17 8:35 PM) A/G Ratio [0.7-1.6] 0.7 (12/06/17 8:35 PM) Calcium Lvl 8.9 mg/dL 8.8 mg/dL [8.5-10.5 mg/dL] (12/07/17 4:02 AM) (12/06/17 8:35 PM) ALT [0-65 unit/L] 26 unit/L (12/06/17 8:35 PM) AST [0-37 unit/L] 19 unit/L (12/06/17 8:35 PM) Alk Phos [39-136 55 unit/L unit/L] (12/06/17 8:35 PM) Bili Total [0.2-1.3 0.3 mg/dL mg/dL] (12/06/17 8:35 PM) 1Result Comment: The eGFR is calculated using the [...] from the National Kid[employer] Disease Education Program ( NKDEP) which additionally recommends that when the eGFR is used in patients with extremes of body mass index for purposes of drug dosing, the eGFR should be mul tiplied by the estimated BMI. 2Result Comment: The eGFR is calculated using the [...] from the National Kidney Disease Education Program ( NKDEP) which additionally recommends that when the eGFR is used in patients with extremes of body mass index for purposes of drug dosing, the eGFR should be mul tiplied by the estimated BMI. CARDIAC ENZYMES Most recent to 1 2 oldest [Reference Range]: Total CK [12-191 77 unit/L unit/L] (12/06/17 8:35 PM) CK MB [0.5-3.6 2.3 ng/mL ng/mL] (12/06/17 8:35 PM) CK MB Index 3.0 [0.0-2.5] *HI* (12/06/17 8:35 PM) Troponin-I <0.02 ng/mL [0.00-0.40 ng/mL] (12/06/17 8:35 PM) BNP [<=100 pg/mL] 25 pg/mL (12/06/17 8:35 PM) HEMATOLOGY Most recent to 1 2 oldest [Reference Range]: WBC [3.7-10.4 K/CMM] 12.2 K/CMM 13.0 K/CMM *HI* *HI* (12/07/17 4:02 AM) (12/06/17 8:35 PM) RBC [4.70-6.10 5.24 M/CMM 5.13 M/CMM M/CMM] (12/07/17 4:02 AM) (12/06/17 8:35 PM) Hgb [14.0-18.0 g/dL] 16.1 g/dL 15.6 g/dL (12/07/17 4:02 AM) (12/06/17 8:35 PM) Hct [42.0-54.0 %] 48.5 % 46.9 % (12/07/17 4:02 AM) (12/06/17 8:35 PM) MCV [80.0-94.0 fL] 92.7 fL 91.5 fL (12/07/17 4:02 AM) (12/06/17 8:35 PM) MCH [27.0-31.0 pg] 30.7 pg 30.4 pg (12/07/17 4:02 AM) (12/06/17 8:35 PM) MCHC [32.0-36.0 33.1 g/dL 33.2 g/dL g/dL] (12/07/17 4:02 AM) (12/06/17 8:35 PM) RDW [11.5-14.5 %] 14.9 % 14.6 % *HI* *HI* (12/07/17 4:02 AM) (12/06/17 8:35 PM) MPV [7.4-10.4 fL] 8.4 fL 8.7 fL (12/07/17 4:02 AM) (12/06/17 8:35 PM) Platelet [133-450 221 K/CMM 223 K/CMM K/CMM] (12/07/17 4:02 AM) (12/06/17 8:35 PM) Segs [45.0-75.0 %] 90.5 % 62.3 % *HI* (12/06/17 8:35 PM) (12/07/17 4:02 AM) Lymphocytes 7.7 % 25.2 % [20.0-40.0 %] *LOW* (12/06/17 8:35 PM) (12/07/17 4:02 AM) Monocytes [2.0-12.0 1.0 % 9.9 % %] *LOW* (12/06/17 8:35 PM) (12/07/17 4:02 AM) Eosinophils [0.0-4.0 1.2 % %] (12/06/17 8:35 PM) Basophils [0.0-1.0 0.8 % 1.4 % %] (12/07/17 4:02 AM) *HI* (12/06/17 8:35 PM) Segs-Bands # 11.0 K/CMM 8.1 K/CMM [1.5-8.1 K/CMM] *HI* (12/06/17 8:35 PM) (12/07/17 4:02 AM) Lymphocytes # 0.9 K/CMM 3.3 K/CMM [1.0-5.5 K/CMM] *LOW* (12/06/17 8:35 PM) (12/07/17 4:02 AM) Monocytes # [0.0-0.8 0.1 K/CMM 1.3 K/CMM K/CMM] (12/07/17 4:02 AM) *HI* (12/06/17 8:35 PM) Eosinophils # 0.2 K/CMM [0.0-0.5 K/CMM] (12/06/17 8:35 PM) Basophils # [0.0-0.2 0.1 K/CMM 0.2 K/CMM K/CMM] (12/07/17 4:02 AM) (12/06/17 8:35 PM) PT [12.0-14.7 13.7 seconds 12.9 seconds seconds] (12/07/17 4:02 AM) (12/06/17 8:35 PM) INR [0.85-1.17] 1.05 0.97 (12/07/17 4:02 AM) (12/06/17 8:35 PM) PTT [22.9-35.8 26.8 seconds 30.5 seconds seconds] (12/07/17 4:02 AM) (12/06/17 8:35 PM) VIRAL - SEROLOGY Most recent to 1 2 oldest [Reference Range]: Influ A [Negative] Negative (12/06/17 2:43 PM) Influ B [Negative] Negative (12/06/17 2:43 PM) Immunizations Given and Recorded Vaccine Date Status Refusal Reason pneumococcal 23-valent vaccine 02/08/16 Given Procedures Procedure Date Related Diagnosis Body Site Status Closed reduction of dislocation of shoulder Completed Social History Social History Type Response Substance Abuse Use: None. Alcohol Past, Type Beer, Liquor. Smoking Status Current every day smoker; Type: Cigarettes; Exposure to Tobacco Smoke None; Cigarette Smoking Last 365 Days No; Reg Smoking Cessation Counseling Yes entered on: 12/06/17 Assessment and Plan Extracted from: Title: [facility] Author: Alex Paz MD Date: 12/07/17 Hospitalist Service Discharge Summary [facility] Hospitalist Service Discharge Summary PATIENT NAME:SANDY RIOJAS ATTENDING: ALEX COTO JR, MD ADMISSION DATE:12/06/2017 13:56 DISCHARGE DATE:12/07/2017 16:38 DISCHARGE DIAGNOSIS: Pleural effusion, not elsewhere classified (J90) Shortness of breath (R06.02) CONSULTING PHYSICIANS/SERVICES: Gabriel Prieto MDOffice: Service: Pulmonary, Medicine Nadia Arellano MDOffice: Service: Pulmonary, Medicine DISCHARGE CONDITION: Fair HISTORY [...] planning discharge which included bedside counseling. Extracted from: Title: Clinical Document Author: Gabriel Prieto MD Date: 12/07/17 seen and examined, spoke with daughter and patient. Will do CT chest for further assessment. Extracted from: Title: General Admission H&P * Author: Kenneth Grewal MD Date: 12/06/17 Impression and Plan -Shortness of breath secondary to pleural effusion from underlying rheumatoid arthritis Pulmonary consult Thoracentesis need to be determined -Leukocytosis Likely from chronic steroids and possible pneumonia, organism unspecified Levaquin -Rheumatoid arthritis Continue methylprednisolone DVT prophylaxis Lovenox DISPO: expect 1 mn stay
--- OUTSIDE RECORDS SUMMARY | 2018-12-31 12:06 | XMS REPORT | Summary of Care ---
Author Author [facility] Organization [facility] Address Unknown Phone Unavailable Encounter HQ Encntr_alias(FIN) [id number] Date(s): 01/30/18 - 01/30/18 [facility] [address], [address] [place] [address]- [phone] Attending Physician: Daiana Gayle MD Vital Signs No data available for this section Problem List Condition Effective Dates Status Health Status Informant Pleural Resolved effusion(Confirmed) Rheumatoid Resolved arthritis(Confirmed) Allergies, Adverse Reactions, Alerts Substance Reaction Severity Status NKDA Active Medications No data available for this section Results No data available for this section Immunizations Given and Recorded Vaccine Date Status [...] Smoking Cessation Counseling No entered on: 03/24/18 Assessment and Plan No data available for this section
--- OUTSIDE RECORDS SUMMARY | 2018-12-31 12:06 | XMS REPORT | Summary of Care ---
Author Author [facility] Organization [facility] Address Unknown Phone Unavailable Encounter HQ [place]) [id number] Date(s): 12/11/17 - 12/15/17 [facility] [address] [place] [address]- Discharge Disposition: Home or Self Care Attending Physician: Jesus Rangel MD Admitting Physician: Jesus Rangel MD Vital Signs 1 2 3 Most recent to oldest [Reference Range]: 175.26 cm (12/11/17 9:06 PM) Height 98.1 DegF (12/15/17 11:05 AM) 97.8 DegF (12/15/17 7:24 AM) 98.4 DegF (12/15/17 4:09 AM) Temperature Oral [96.4-99.1 DegF] 90/53 mmHg (12/15/17 11:05 AM) 100/58 mmHg (12/15/17 7:24 AM) 94/50 mmHg (12/15/17 4:09 AM) Blood Pressure [90-140/60-90 mmHg] 18 BRMIN (12/15/17 11:05 AM) 18 BRMIN (12/15/17 7:24 AM) 18 BRMIN (12/15/17 4:09 AM) Respiratory Rate [14-20 BRMIN] 83 bpm (12/15/17 11:05 AM) 61 bpm (12/15/17 7:24 AM) 72 bpm (12/15/17 4:09 AM) Peripheral Pulse Rate [60-100 bpm] 107.2 kg (12/12/17 3:55 AM) 113.636 kg (12/11/17 9:06 PM) Weight 37 m2 (12/11/17 9:06 PM) Body Mass Index Problem List Condition Effective Dates Status Health Status Informant Pleural Resolved effusion(Confirmed) Rheumatoid Resolved arthritis(Confirmed) Allergies, Adverse Reactions, Alerts Substance Reaction Severity Status NKDA Active Medications amoxicillin 1,000 mg, 2 cap, Route: PO, Drug form: CAP, BID, Dosing Weight 107.2, kg, Start date: 12/14/17 17:00:00 CDT, Duration: 10 day, Stop date: 12/24/17 9:00:00 CDT Notes: (Same as: Amoxil) Start Date: 12/14/17 Stop Date: 12/15/17 Status: Discontinued amoxicillin 500 mg oral capsule 1,000 mg=2 cap, PO, BID, X 10 day, # 40 cap, 0 Refill(s), Pharmacy: [facility] [id number] Start Date: 12/15/17 Stop Date: 12/25/17 Status: Ordered azithromycin + Sodium Chloride 0.9% IV 250 mL 500 mg, Route: IVPB, ONCE, Dosing Weight 113.636, kg, Priority: STAT, Start date : 12/12/17 1:07:00 CDT, Stop date: 12/12/17 1:07:00 CDT, ABX Indication: Pneumon ia Notes: (Same As: Zithromax IV) Start Date: 12/12/17 Stop Date: 12/12/17 Status: Completed calcium carbonate 500 mg (200 mg elemental calcium) oral tablet 500 mg, 1 tab, Route: PO, Drug form: CHEWTAB, PRN, Dosing Weight 113.636, kg, ND N Abnormal Lab Result, FOR ICU USE ONLY, Start date: 12/12/17 2:17:00 CDT, Durat ion: 30 day, Stop date: 01/11/18 2:16:00 CDT Notes: (Same As: Tums)Calcium Carbonate 500 sj=171 mg elemental calcium Dose=_ mg calcium carbonate ( mg elemental calcium) Start Date: 12/12/17 Stop Date: 12/15/17 Status: Discontinued calcium carbonate 500 mg (200 mg elemental calcium) oral tablet 1,000 mg, 2 tab, Route: PO, Drug form: CHEWTAB, PRN, Dosing Weight 113.636, kg, PRN Abnormal Lab Result, FOR ICU USE ONLY, Start date: 12/12/17 2:17:00 CDT, Dur ation: 30 day, Stop date: 01/11/18 2:16:00 CDT Notes: (Same As: Marjorie)Calcium Carbonate 500 um=641 mg elemental calcium Dose=_ mg calcium carbonate ( mg elemental calcium) Start Date: 12/12/17 Stop Date: 12/15/17 Status: Discontinued calcium gluconate 1 gm, 50 mL, Route: IVPB, Drug form: INJ, PRN, Dosing Weight 113.636, kg, PRN Ab normal Lab Result, Start date: 12/12/17 2:17:00 CDT, Duration: 30 day, Stop date : 01/11/18 2:16:00 CDT, FOR ICU USE ONLY Notes: WASTE: F/P - Sink; E - Municipal Trash Bin Start Date: 12/12/17 Stop Date: 12/15/17 Status: Discontinued Carafate 1 g oral tablet 1 gm=1 tab, PO, QID, # 120 tab, 0 Refill(s), Pharmacy: [facility] [id number] Start Date: 12/15/17 Stop Date: 01/14/18 Status: Ordered cefTRIAXone 1 gm, Route: IVPB, Drug form: PDR/INJ, ONCE, Dosing Weight 113.636, kg, Priority : STAT, Start date: 12/12/17 1:07:00 CDT, Stop date: 12/12/17 1:07:00 CDT, ABX I ndication: Pneumonia Start Date: 12/12/17 Stop Date: 12/12/17 Status: Completed clarithromycin 500 mg, 2 tab, Route: PO, Drug form: TAB, Q12H, Dosing Weight 107.2, kg, Start d ate: 12/14/17 21:00:00 CDT, Stop date: 12/24/17 9:00:00 CDT Notes: (Same As: Biaxin) Start Date: 12/14/17 Stop Date: 12/15/17 Status: Discontinued clarithromycin 500 mg, 2 tab, Route: PO, Drug form: TAB, Q12H, Dosing Weight 107.2, kg, Start d ate: 12/14/17 17:00:00 CDT, Stop date: 12/24/17 9:00:00 CDT Notes: (Same As: Biaxin) Start Date: 12/14/17 Stop Date: 12/14/17 Status: Discontinued clarithromycin 250 mg oral tablet 500 mg=2 tab, PO, Q12H, X 10 day, # 40 tab, 0 Refill(s), Pharmacy: [id number] Start Date: 12/15/17 Stop Date: 12/25/17 Status: Ordered Hurricaine Route: TOP, ONCE, Drug form: SPRY, Start date: 12/11/17 22:26:00 CDT, Stop date: 12/11/17 22:26:00 CDT Notes: (Same As: Hurricaine)WASTE: F/P - Black; E - Municipal Trash Bin FOR ORA L USE Start Date: 12/11/17 Stop Date: 12/13/17 Status: Completed lidocaine 4% inhalation solution 5 mL, Route: NEB, Drug Form: INJ, Dosing Weight 113.636, kg, ONCE, Start date: 0 12/11/17 22:21:00 CDT, Stop date: 12/11/17 22:21:00 CDT Notes: (Same as: Xylocaine) Start Date: 12/11/17 Stop Date: 12/11/17 Status: Completed magnesium oxide 800 mg, 2 tab, Route: PO, Drug form: TAB, PRN, Dosing Weight 113.636, kg, PRN Ab normal Lab Result, FOR ICU USE ONLY, Start date: 12/12/17 2:17:00 CDT, Duration: 30 day, Stop date: 01/11/18 2:16:00 CDT Notes: (Same as: Mag-Ox 400)Magnesium oxide [id number] elemental magnesiumDose= ____mg magnesium oxide (___mg elemental magnesium) Start Date: 12/12/17 Stop Date: 12/15/17 Status: Discontinued magnesium sulfate 2 gm, 50 mL, Route: IVPB, Drug form: INJ, PRN, Dosing Weight 113.636, kg, PRN Ab normal Lab Result, Start date: 12/12/17 2:17:00 CDT, Duration: 30 day, Stop date : 01/11/18 2:16:00 CDT, FOR ICU USE ONLY Notes: WASTE: F/P - Sink; E - Municipal Trash Bin Start Date: 12/12/17 Stop Date: 12/15/17 Status: Discontinued pantoprazole 40 mg, Route: IVP, Drug form: INJ, Q12H, Dosing Weight 113.636, kg, Start date: 12/15/17 9:00:00 CDT, Duration: 30 day, Stop date: 01/13/18 21:00:00 CDT Notes: For IV push reconstitute with 10 ml 0.9% sodium chloride and push over 2 minutes. (Same as: Protonix) Start Date: 12/15/17 Stop Date: 12/12/17 Status: Canceled pantoprazole 40 mg oral enteric coated tablet 40 mg=1 tab, PO, BID, # 60 tab, 0 Refill(s), Pharmacy: [facility] [id number] Start Date: 12/15/17 Stop Date: 01/14/18 Status: Ordered pantoprazole 80 mg + Sodium Chloride 0.9% IV 100 mL 100 mL, Rate: 10 ml/hr, Infuse over: 10 hr, Route: IVPB, Dosing Weight 113.636 k g, Total Volume: 100, Infuse at 8 mg / hr for 72 hours for GI bleeding, Start da te: 12/12/17 1:13:00 CDT, Duration: 72 hr, Stop date: 12/15/17 1:12:00 CDT, 2.38 , m2 Start Date: 12/12/17 Stop Date: 12/12/17 Status: Discontinued potassium chloride 20 mEq, 15 mL, Route: NJ, Drug form: LIQ, PRN, Dosing Weight 113.636, kg, PRN Ab normal Lab Result, Start date: 12/12/17 2:17:00 CDT, Duration: 30 day, Stop date : 01/11/18 2:16:00 CDT, FOR ICU USE ONLY Notes: (Same as: Potassium Chloride) Start Date: 12/12/17 Stop Date: 12/15/17 Status: Discontinued potassium chloride 20 mEq, 1 tab, Route: PO, Drug form: ERTAB, PRN, Dosing Weight 113.636, kg, PRN Abnormal Lab Result, Start date: 12/12/17 2:17:00 CDT, Duration: 30 day, Stop da te: 01/11/18 2:16:00 CDT, FOR ICU USE ONLY Notes: (Same as: K-Dur 20)"Do Not Crush"For patients unable to swallow tablet, d issolve in one half glass of water. Allow about 2 minutes for the tablets to dis integrate. Stir before giving to prepare slurry and administer.Please exclude Pa tients with feeding tube less than 14 Qatari (Dobhoff, J-tube etc) and pediat adina and patients. With food and full glass of water Start Date: 12/12/17 Stop Date: 12/15/17 Status: Discontinued potassium chloride + Sodium Chloride 0.9% IV 90 mL 20 mEq, 10 mL, Route: IVPB, PRN, Dosing Weight 113.636, kg, PRN Abnormal Lab Res ult, Via central line, Start date: 12/12/17 2:17:00 CDT, Duration: 30 day, Stop date: 01/11/18 2:16:00 CDT, FOR ICU USE ONLY Notes: MUST be Diluted before use(Same as: KCl) MEDICATION WASTE Product Size: 40 mEqProduct Wasted: 20 mEq Start Date: 12/12/17 Stop Date: 12/15/17 Status: Discontinued potassium chloride + Sodium Chloride 0.9% IV 95 mL 10 mEq, 5 mL, Route: IVPB, PRN, Dosing Weight 113.636, kg, PRN Abnormal Lab Resu lt, Via peripheral line, Start date: 12/12/17 2:17:00 CDT, Duration: 30 day, Sto p date: 01/11/18 2:16:00 CDT, FOR ICU USE ONLY Notes: MUST be Diluted before use(Same as: KCl) MEDICATION WASTE Product Size: 40 mEqProduct Wasted: 30 mEq Start Date: 12/12/17 Stop Date: 12/15/17 Status: Discontinued potassium phosphate + Sodium Chloride 0.9% IV 250 mL 45 mmol, 15 mL, Route: IVPB, PRN, Dosing Weight 113.636, kg, PRN Abnormal Lab Re sult, Start date: 12/12/17 2:17:00 CDT, Duration: 30 day, Stop date: 01/11/18 2: 16:00 CDT, FOR ICU USE ONLY Notes: (Same as: K Phosphate.) 1 mMol phoshate has 1.47 mEq potassium Infuse o jos 4 hours Start Date: 12/12/17 Stop Date: 12/15/17 Status: Discontinued potassium phosphate + Sodium Chloride 0.9% IV 250 mL 30 mmol, 10 mL, Route: IVPB, PRN, Dosing Weight 113.636, kg, PRN Abnormal Lab Re sult, Start date: 12/12/17 2:17:00 CDT, Duration: 30 day, Stop date: 01/11/18 2: 16:00 CDT, FOR ICU USE ONLY Notes: (Same as: K Phosphate.) 1 mMol phoshate has 1.47 mEq potassium Infuse o jos 4 hours Start Date: 12/12/17 Stop Date: 12/15/17 Status: Discontinued potassium phosphate + Sodium Chloride 0.9% IV 250 mL 15 mmol, 5 mL, Route: IVPB, PRN, Dosing Weight 113.636, kg, PRN Abnormal Lab Res ult, Start date: 12/12/17 2:17:00 CDT, Duration: 30 day, Stop date: 01/11/18 2:1 6:00 CDT, FOR ICU USE ONLY Notes: (Same as: K Phosphate.) 1 mMol phoshate has 1.47 mEq potassium Infuse o jos 4 hours Start Date: 12/12/17 Stop Date: 12/15/17 Status: Discontinued potassium phosphate + Sodium Chloride 0.9% IV 250 mL 18 mmol, 6 mL, Route: IVPB, ONCE, Dosing Weight 113.636, kg, Start date: 8 2:13:00 CDT, Stop date: 12/12/17 2:13:00 CDT Notes: (Same as: K Phosphate.) 1 mMol phoshate has 1.47 mEq potassium Infuse o jos 4 hours Start Date: 12/12/17 Stop Date: 12/12/17 Status: Completed potassium phosphate-sodium phosphate 250 mg-280 mg-160 mg oral powder for recons titution 2 pkt, Route: PO, Drug Form: PDR/REC, Dosing Weight 113.636, kg, PRN, PRN Abnorm al Lab Result, FOR ICU USE ONLY, Start date: 12/12/17 2:17:00 CDT, Duration: 30 day, Stop date: 01/11/18 2:16:00 CDT Notes: (Same as: Phos-NaK) Each 1.5 gm pkt has 250mg phosphorous. Mix w/2.5oz w ater and stir. Start Date: 12/12/17 Stop Date: 12/15/17 Status: Discontinued Protonix 40 mg, Route: IVP, Drug form: INJ, BID, Dosing Weight 107.2, kg, Start date: 17:00:00 CDT, Duration: 30 day, Stop date: 01/11/18 9:00:00 CDT Notes: For IV push reconstitute with 10 ml 0.9% sodium chloride and push over 2 minutes. (Same as: Protonix) Start Date: 12/12/17 Stop Date: 12/14/17 Status: Discontinued Protonix 40 mg, 1 tab, Route: PO, Drug form: ECTAB, BID, Dosing Weight 107.2, kg, Start d ate: 12/14/17 17:00:00 CDT, Duration: 30 day, Stop date: 01/13/18 9:00:00 CDT Notes: Tablet should not be chewed or crushed.(Same as: Protonix) Start Date: 12/14/17 Stop Date: 12/15/17 Status: Discontinued Protonix 40 mg, Route: IVP, Drug form: INJ, ONCE, Dosing Weight 113.636, kg, Priority: ST AT, Start date: 12/11/17 22:23:00 CDT, Stop date: 12/11/17 22:23:00 CDT Notes: For IV push reconstitute with 10 ml 0.9% sodium chloride and push over 2 minutes. (Same as: Protonix) Start Date: 12/11/17 Stop Date: 12/12/17 Status: Completed Saline Flush 0.9% 10 mL, Route: IVP, Drug Form: INJ, Dosing Weight 113.636, kg, PRN, PRN Line Flus h, Start date: 12/11/17 21:19:00 CDT, Duration: 30 day, Stop date: 01/10/18 21:1 8:00 CDT Notes: (Same as: BD Posiflush) Start Date: 12/11/17 Stop Date: 12/13/17 Status: Discontinued sodium phosphate + Dextrose 5% in Water IV 250 mL 15 mmol, 5 mL, Route: IVPB, PRN, Dosing Weight 113.636, kg, PRN Abnormal Lab Res ult, Start date: 12/12/17 2:17:00 CDT, Duration: 30 day, Stop date: 01/11/18 2:1 6:00 CDT, FOR ICU USE ONLY Start Date: 12/12/17 Stop Date: 12/15/17 Status: Discontinued sodium phosphate + Dextrose 5% in Water IV 250 mL 30 mmol, 10 mL, Route: IVPB, PRN, Dosing Weight 113.636, kg, PRN Abnormal Lab Re sult, Start date: 12/12/17 2:17:00 CDT, Duration: 30 day, Stop date: 01/11/18 2: 16:00 CDT, FOR ICU USE ONLY Start Date: 12/12/17 Stop Date: 12/15/17 Status: Discontinued sodium phosphate + Dextrose 5% in Water IV 250 mL 45 mmol, 15 mL, Route: IVPB, PRN, Dosing Weight 113.636, kg, PRN Abnormal Lab Re sult, Start date: 12/12/17 2:17:00 CDT, Duration: 30 day, Stop date: 01/11/18 2: 16:00 CDT, FOR ICU USE ONLY Start Date: 12/12/17 Stop Date: 12/15/17 Status: Discontinued Solu-MEDROL 40 mg, 1 mL, Route: IV, Drug form: INJ, Q6Hnow, Dosing Weight 107.2, kg, Priorit y: NOW, Start date: 12/12/17 20:52:00 CDT, Duration: 30 day, Stop date: 01/11/18 14:52:00 CDT Notes: (Same as:Solu-MEDROL, A-Methapred) Start Date: 12/12/17 Stop Date: 12/13/17 Status: Discontinued sucralfate 1 gm, 1 tab, Route: PO, Drug form: TAB, QID, Dosing Weight 107.2, kg, Start date : 12/12/17 17:00:00 CDT, Duration: 30 day, Stop date: 01/11/18 13:00:00 CDT Notes: May interfere w/enteral feeds - Take 1 hr before or 2 hr after antacids, dairy pdt, meals & minerals - On empty stomach.For patients unable to swallow tablet, dissolve in 10mL - 30mL of water or juice and stir before giving. (Same As: Carafate) Start Date: 12/12/17 Stop Date: 12/15/17 Status: Discontinued tramadol 50 mg oral tablet 50 mg, 1 tab, Route: PO, Drug form: TAB, Q4H, Dosing Weight 107.2, kg, PRN Pain Score 4-6, Start date: 12/12/17 20:52:00 CDT, Duration: 30 day, Stop date: 01/11 20:51:00 CDT Notes: Not to exceed 400mg/day. (Same As: Ultram) Start Date: 12/12/17 Stop Date: 12/15/17 Status: Discontinued Results BLOOD BANK RESULTS 1 2 3 Most recent to oldest [Reference Range]: B POS *Unknown* (12/11/17 10:43 PM) ABO/Rh Negative (12/11/17 10:43 PM) Antibody Scrn ELECTROLYTES 1 2 3 Most recent to oldest [Reference Range]: 143 mEq/L (12/15/17 4:38 AM) 143 mEq/L (12/14/17 4:43 AM) 136 mEq/L (12/13/17 4:42 AM) Sodium Lvl [135-145 mEq/L] 3.7 mEq/L (12/15/17 4:38 AM) 4.4 mEq/L (12/14/17 4:43 AM) 4.8 mEq/L (12/13/17 4:42 AM) Potassium Lvl [3.5-5.1 mEq/L] 105 mEq/L (12/15/17 4:38 AM) 103 mEq/L (12/14/17 4:43 AM) 101 mEq/L (12/13/17 4:42 AM) Chloride Lvl [95-109 mEq/L] 34 mEq/L *HI* (12/15/17 4:38 AM) 31 mEq/L (12/14/17 4:43 AM) 31 mEq/L (12/13/17 4:42 AM) CO2 [24-32 mEq/L] 7.7 mEq/L *LOW* (12/15/17 4:38 AM) 13.4 mEq/L (12/14/17 4:43 AM) 8.8 mEq/L *LOW* (12/13/17 4:42 AM) AGAP [10.0-20.0 mEq/L] CHEM PANEL 1 2 3 Most recent to oldest [Reference Range]: 0.78 mg/dL (12/15/17 4:38 AM) 0.60 mg/dL (12/14/17 4:43 AM) 0.60 mg/dL (12/13/17 4:42 AM) Creatinine Lvl [0.50-1.40 mg/dL] 105 mL/min/1.73m2 1 *NA* (12/15/17 4:38 AM) 116 mL/min/1.73m2 2 *NA* (12/14/17 4:43 AM) 116 mL/min/1.73m2 3 *NA* (12/13/17 4:42 AM) eGFR 15 mg/dL (12/15/17 4:38 AM) 15 mg/dL (12/14/17 4:43 AM) 13 mg/dL (12/13/17 4:42 AM) BUN [7-22 mg/dL] 47 *HI* (12/11/17 10:43 PM) B/C Ratio [6-25] 73 mg/dL (12/15/17 4:38 AM) 122 mg/dL *HI* (12/14/17 4:43 AM) 144 mg/dL *HI* (12/13/17 4:42 AM) Glucose Lvl [70-99 mg/dL] 5.8 g/dL *LOW* (12/11/17 10:43 PM) Total Protein [6.4-8.4 g/dL] 2.4 g/dL *LOW* (12/11/17 10:43 PM) Albumin Lvl [3.5-5.0 g/dL] 3.4 g/dL (12/11/17 10:43 PM) Globulin [2.7-4.2 g/dL] 0.7 (12/11/17 10:43 PM) A/G Ratio [0.7-1.6] 8.1 mg/dL *LOW* (12/15/17 4:38 AM) 8.8 mg/dL (12/14/17 4:43 AM) 8.4 mg/dL *LOW* (12/13/17 4:42 AM) Calcium Lvl [8.5-10.5 mg/dL] 3.6 mg/dL (12/15/17 4:38 AM) 2.2 mg/dL *LOW* (12/14/17 4:43 AM) 3.8 mg/dL (12/13/17 4:42 AM) Phosphorus [2.5-4.5 mg/dL] 2.3 mg/dL (12/15/17 4:38 AM) 2.1 mg/dL (12/14/17 4:43 AM) 1.9 mg/dL (12/13/17 4:42 AM) Magnesium Lvl [1.8-2.4 mg/dL] 22 unit/L (12/11/17 10:43 PM) ALT [0-65 unit/L] 6 unit/L (12/11/17 10:43 PM) AST [0-37 unit/L] 39 unit/L (12/11/17 10:43 PM) Alk Phos [39-136 unit/L] 0.4 mg/dL (12/11/17 10:43 PM) Bili Total [0.2-1.3 mg/dL] 1Result Comment: The eGFR is calculated using [...] be mul tiplied by the estimated BMI. 3Result Comment: The eGFR is calculated using the [...] tiplied by the estimated BMI. CARDIAC ENZYMES 1 2 3 Most recent to oldest [Reference Range]: 46 unit/L (12/11/17 10:43 PM) Total CK [12-191 unit/L] 1.7 ng/mL (12/11/17 10:43 PM) CK MB [0.5-3.6 ng/mL] 3.7 *HI* (12/11/17 10:43 PM) CK MB Index [0.0-2.5] <0.02 ng/mL (12/11/17 10:43 PM) Troponin-I [0.00-0.40 ng/mL] 5 pg/mL (12/11/17 10:43 PM) BNP [<=100 pg/mL] URINE AND STOOL 1 2 3 Most recent to oldest [Reference Range]: Positive 1 *ABN* (12/11/17 10:50 PM) Occult Bld Stl [Negative] 1Result Comment: corrective action called to Marah Eagle RN 12/11/2017 23:14 MS HEMATOLOGY 1 2 3 Most recent to oldest [Reference Range]: 16.1 K/CMM *HI* (12/15/17 4:38 AM) 26.1 K/CMM *HI* (12/14/17 4:43 AM) 20.9 K/CMM *HI* (12/13/17 4:42 AM) WBC [3.7-10.4 K/CMM] 2.76 M/CMM *LOW* (12/15/17 4:38 AM) 2.85 M/CMM *LOW* (12/14/17 4:43 AM) 3.27 M/CMM *LOW* (12/13/17 4:42 AM) RBC [4.70-6.10 M/CMM] 8.5 g/dL *LOW* (12/15/17 4:38 AM) 8.5 g/dL *LOW* (12/14/17 4:43 AM) 10.0 g/dL *LOW* (12/13/17 4:42 AM) Hgb [14.0-18.0 g/dL] 25.5 % *LOW* (12/15/17 4:38 AM) 25.6 % *LOW* (12/14/17 4:43 AM) 29.9 % *LOW* (12/13/17 4:42 AM) Hct [42.0-54.0 %] 92.2 fL (12/15/17 4:38 AM) 90.1 fL (12/14/17 4:43 AM) 91.4 fL (12/13/17 4:42 AM) MCV [80.0-94.0 fL] 30.9 pg (12/15/17 4:38 AM) 29.7 pg (12/14/17 4:43 AM) 30.7 pg (12/13/17 4:42 AM) MCH [27.0-31.0 pg] 33.5 g/dL (12/15/17 4:38 AM) 33.0 g/dL (12/14/17 4:43 AM) 33.7 g/dL (12/13/17 4:42 AM) MCHC [32.0-36.0 g/dL] 14.3 % (12/15/17 4:38 AM) 13.6 % (12/14/17 4:43 AM) 14.0 % (12/13/17 4:42 AM) RDW [11.5-14.5 %] 8.3 fL (12/15/17 4:38 AM) 8.6 fL (12/14/17 4:43 AM) 9.1 fL (12/13/17 4:42 AM) MPV [7.4-10.4 fL] 262 K/CMM (12/15/17 4:38 AM) 241 K/CMM (12/14/17 4:43 AM) 215 K/CMM (12/13/17 4:42 AM) Platelet [133-450 K/CMM] 64.6 % (12/15/17 4:38 AM) 88.1 % *HI* (12/14/17 4:43 AM) 94.5 % *HI* (12/13/17 4:42 AM) Segs [45.0-75.0 %] 24.0 % (12/15/17 4:38 AM) 5.0 % *LOW* (12/14/17 4:43 AM) 3.6 % *LOW* (12/13/17 4:42 AM) Lymphocytes [20.0-40.0 %] 10.3 % (12/15/17 4:38 AM) 6.9 % (12/14/17 4:43 AM) 1.7 % *LOW* (12/13/17 4:42 AM) Monocytes [2.0-12.0 %] 0.6 % (12/15/17 4:38 AM) 0.5 % (12/11/17 10:43 PM) Eosinophils [0.0-4.0 %] 0.5 % (12/15/17 4:38 AM) 0.2 % (12/13/17 4:42 AM) 0.8 % (12/11/17 10:43 PM) Basophils [0.0-1.0 %] 10.4 K/CMM *HI* (12/15/17 4:38 AM) 23.0 K/CMM *HI* (12/14/17 4:43 AM) 19.8 K/CMM *HI* (12/13/17 4:42 AM) Segs-Bands # [1.5-8.1 K/CMM] 3.9 K/CMM (12/15/17 4:38 AM) 1.3 K/CMM (12/14/17 4:43 AM) 0.8 K/CMM *LOW* (12/13/17 4:42 AM) Lymphocytes # [1.0-5.5 K/CMM] 1.7 K/CMM *HI* (12/15/17 4:38 AM) 1.8 K/CMM *HI* (12/14/17 4:43 AM) 0.4 K/CMM (12/13/17 4:42 AM) Monocytes # [0.0-0.8 K/CMM] 0.1 K/CMM (12/15/17 4:38 AM) 0.1 K/CMM (12/11/17 10:43 PM) Eosinophils # [0.0-0.5 K/CMM] 0.1 K/CMM (12/15/17 4:38 AM) 0.2 K/CMM (12/11/17 10:43 PM) Basophils # [0.0-0.2 K/CMM] Normal (12/13/17 4:42 AM) Normal (12/11/17 10:43 PM) RBC Morph Normal (12/13/17 4:42 AM) Normal (12/11/17 10:43 PM) Plt Morph 14.0 seconds (12/12/17 4:41 AM) PT [12.0-14.7 seconds] 1.08 (12/12/17 4:41 AM) INR [0.85-1.17] 30.7 seconds (12/12/17 4:41 AM) PTT [22.9-35.8 seconds] Immunizations Given and Recorded Vaccine Date Status [...] Reg Smoking Cessation Counseling Yes entered on: 12/12/17 Assessment and Plan Extracted from: Title: Discharge Summary * Author: Jesus Rangel MD Date: 12/15/17 Patient: SANDY RIOJAS Age: 52 years Sex: Male : 1965 Associated Diagnoses: None Author: Jesus Rangel MD Results Review General results Labs (Last four charted values) WBC H 16.1(VARGAS 22)H 26.1(VARGAS 21)H 20.9(VARGAS 20)H 23.4(VARGAS 18) Hgb L 8.5(VARGAS 22)L 8.5(VARGAS 21)L 10.0(VARGAS 20)L 10.5(VARGAS 20) Hct L 25.5(VARGAS 22)L 25.6(VARGAS 21)L 29.9(VARGAS 20)L 31.6(VARGAS 20) Plt 262(VARGAS 22)241(VARGAS 21)215(VARGAS 20)206(VARGAS 18) Na 143(VARGAS 22)143(VARGAS 21)136(VARGAS 20)140(VARGAS 18) K 3.7(VARGAS 22)4.4(VARGAS 21)4.8(VARGAS 20)4.5(VARGAS 19) CO2 H 34(VARGAS 22)31(VARGAS 21)31(VARGAS 20)28(VARGAS 18) Cl 105(VARGAS 22)103(VARGAS 21)101(VARGAS 20)107(VARGAS 18) Cr 0.78(VARGAS 22)0.60(VARGAS 21)0.60(VARGAS 20)0.74(VARGAS 18) BUN 15(VARGAS 22)15(VARGAS 21)13(VARGAS 20)H 35(VARGAS 18) Glucose Random 73(VARGAS 22)H 122(VARGAS 21)H 144(VARGAS 20)95(VARGAS 18) Mg 2.3(VARGAS 22)2.1(VARGAS 21)1.9(VARGAS 20)1.8(VARGAS 18) Phos 3.6(VARGAS 22)L 2.2(VARGAS 21)3.8(VARGAS 20)3.1(VARGAS 19) Ca L 8.1(VARGAS 22)8.8(VARGAS 21)L 8.4(VARGAS 20)L 7.5(VARGAS 18) PT 14.0(VARGAS 19) INR 1.08(VARGAS 19) PTT 30.7(VARGAS 19) Troponin <0.02(VARGAS 18) CK MB 1.7(VARGAS 18) Total CK 46(VARGAS 18) Final discharge diagnoses: 1. Acute GI [...] Signs (last 24 hrs) Last Charted Temp Oral98.1 DegF (DEC 15:) Heart Rate Bxkdbjjgqf71 bpm (DEC 15:) Resp Rate 18 BRMIN (DEC 15) SBP90 mmHg (DEC 15:) DBPL 53mmHg (DEC 15:) UuG118 % (DEC 15:) General: Alert and oriented, [...] clear and coherent. Psychiatric: Cooperative, Appropriate mood & affect. Chest x-ray: IMPRESSION: Airspace disease/atelectasis at [...] summary to greater than 35 minutes Addendum Steroid-induced leukocytosis by Jesus Rangel MD on 12/15/2017 22:37 Extracted from: Title: General Admission H&P * Author: Jesus Rangel [...] NKDA- No reactions were documented., Allergies (1) ActiveReaction NKDANone Documented Current medications: (Selected) Inpatient Medications Ordered [...] Histories Past Medical History: Resolved Rheumatoid arthritis ([id number]): Resolved. Pleural effusion ([id number]): Resolved. Family History: Hypertension Mother Heart disease Father Procedure history: Closed reduction of dislocation of shoulder ([id number]). Social History Social & Psychosocial Habits Alcohol 12/06/2017 Use: Past Type: [...] Signs (last 24 hrs) Last Charted Temp Oral98.0 DegF (DEC 14:) Heart Rate Uclqcgsybe08 bpm (DEC 14:) Resp Rate 18 BRMIN (DEC 14:) SMI604 mmHg (DEC 14:) DBP70 mmHg (DEC 14:) ZjD570 % (DEC 14:) Intake and Output I/O Intake OutputBalance 12/14/20177a-3p 360.00 0.00 360.00 3p-11p 140.00 0.00 140.00As of 18:35 11p-7a 0.00 0.00 0.00 Totals 500.00 0.00 500.00 12/13/20177a-3p 241.00 500.00 -259.00 3p-11p 0.00 400.00 -400.00 11p-7a 0.00 0.00 0.00 Totals 241.00 900.00 -659.00 12/12/20177a-3p 122.67 0.00 122.67 3p-11p 11.00 720.00 -709.00 [...] clear and coherent. Psychiatric: Cooperative, Appropriate mood & affect. Review / Management Results review: Labs (Last four charted values) WBC H 26.1(NOV 21)H 20.9(NOV 20)H 23.4(NOV 18) Hgb L 8.5(VARGAS 21)L 10.0(VARGAS 20)L 10.5(VARGAS 20)L 10.1(VARGAS 19) Hct L 25.6(NOV 21)L 29.9(VARGAS 20)L 31.6(VARGAS 20)L 30.7(VARGAS 19) Plt 241(NOV 21)215(VARGAS 20)206(VARGAS 18) Na 143(NOV 21)136(VARGAS 20)140(VARGAS 18) K 4.4(NOV 21)4.8(VARGAS 20)4.5(VARGAS 19)3.8(VARGAS 18) CO2 31(NOV 21)31(VARGAS 20)28(VARGAS 18) Cl 103(NOV 21)101(VARGAS 20)107(NOV 18) Cr 0.60(DEC 14)0.60(VARGAS 20)0.74(NOV 18) BUN 15(NOV 21)13(VARGAS 20)H 35(VARGAS 18) Glucose Random H 122(NOV 21)H 144(VARGAS 20)95(VARGAS 18) Mg 2.1(NOV 21)1.9(VARGAS 20)1.8(VARGAS 18) Phos L 2.2(NOV 21)3.8(VARGAS 20)3.1(VARGAS 19)L 1.8(NOV 18) Ca 8.8(DEC 14)L 8.4(NOV 20)L 7.5(NOV 18) PT 14.0(DEC 12) INR 1.08(NOV 19) PTT 30.7(NOV 19) Troponin <0.02(NOV 18) CK MB 1.7(NOV 18) Total CK 46(NOV 18). Chest x-ray: IMPRESSION: Airspace disease/atelectasis at the [...] will likely be discharged home tomorrow Addendum Correction: Internal medicine consultation note by Jesus Rangel MD on 12/15/2017 22:33 Extracted from: Title: GI Author: Cherise Rodriguez NP Date: 12/14/17 Progress Note - Daily [facility] Completed: Nov, 15:24 by Cherise Rodriguez NP RM: 137 - 2W, SE [id number] GARCIA [id number] (: 1965) M Attending: Jesus Rangel MDPhone: Service: Internal Medicine Reason for Admission: STRIDOR, GI BLEED Working DRG: Code status: None Specified=FULL CODECurrent diet: Isolation: No Isolation/Standard Precautions Allergies: NKDA SUBJECTIVE no new complaints no n/v or abd pain OBJECTIVE 24hr Labs 12/14 0443 Glucose Wmz744 H BUN15 Creatinine Lvl0.60 Sodium Vhd876 Potassium Lvl4.4 Chloride Wdc699 CO231 AGAP13.4 Calcium Lvl8.8 lFBS226 Magnesium Lvl2.1 Phosphorus2.2 L WBC26.1 H RBC2.85 L Hgb8.5 L Hct25.6 L MCV90.1 MCH29.7 MCHC33.0 RDW13.6 [id number] MPV8.6 Segs88.1 H Monocytes6.9 Lymphocytes5.0 L Segs-Bands #23.0 H Lymphocytes #1.3 Monocytes #1.8 H Pascual still necessary (Yes/No): Line still necessary (Yes/No): VitalsTmp(F)[id number] 12/14 12:2498.561810/[id number]--- 12/14 10:04 1898 1.0L/m 12/14 07:2398.28526/851227--- 12/14 04:4298.457665/746005--- 12/14 01:2698.6270306/082211--- 24 Hr Tmax: 98.6F (37.00c) at 12/14 12:24Vital Signs are the last 5 in the past 48 hours. DateWt(kg)Wt(lb)Ht(cm)Ht(in)Method .20 235.84Measured 12/11 (initial)113.64 250.00Estimated 75.26 69.00Stated I&ORecordInOutBal 11/2123hr Tot 360 0 360 11/2023hr Tot 241 900 -659 Medications (22) Active [...] Gastrointestinal: Soft, Non-tender, Non-distended. Integumentary: Warm, Dry, [place]. Neurologic: Alert, Oriented x 3 Psychiatric: Cooperative, Appropriate mood & affect IMPRESSION 1. Coffee ground emesis with [...] in 3 months to confirm eridication Extracted from: Title: Clinical Document Author: Abdoulaye Fontanez MD Date: 12/12/17 Pulmonary Critical Care ICU Admission Note Attending: Daphnie Duartene: Service: Internal Medicine Code status: None Specified=FULL CODE Reason for Admission: STRIDOR, GI BLEED Working DRG: Isolation: No Isolation/Standard Precautions Consulting Physicians: Stevo Grossman MDOffice: Service: Otolaryngology Navneet Currie MDOffice: Service: Gastroenterology Allergies: NKDA History of Present [...] IV 100 mL 100 mL 10 ml/hr VitalsTmp(F)[id number] 12/12 01:54----[id number] 2.0L/m 12/12 00:57 97 2.0L/m 12/12 00:40----98218/4719------ 12/12 00:24----[id number]--- 12/11 23:30 2.0L/m 24 Hr Tmax: 97.7F (36.50c) at 12/11 21:06Vital Signs are the last 5 in the past 48 hours. 12/12/2017 01:54 Oxygen Therapy ModeNasal cannula SpO2 [id number] 12/11/2017 21:37 FIO2 (%)21 Physical Examination: On exam this is an [...] Labs (Last four charted values) WBC H 23.4(DEC 11) Hgb L 11.6(DEC 11) Hct L 35.5(DEC 11) Plt 206(DEC 11) Na 140(DEC 11) K 3.8(DEC 11) CO2 28(DEC 11) Cl 107(DEC 11) Cr 0.74(DEC 11) BUN H 35(DEC 11) Glucose Random 95(DEC 11) Mg 1.8(DEC 11) Phos L 1.8(DEC 11) Ca L 7.5(DEC 11) Troponin <0.02(DEC 11) CK MB 1.7(DEC 11) Total CK 46(DEC 11) Other reviewed data: His electrolytes are [...]
--- OUTSIDE RECORDS SUMMARY | 2018-12-31 12:06 | XMS REPORT | Summary of Care ---
Author Author [facility] Organization [facility] Address Unknown Phone Unavailable Encounter HQ Zeke(FIN) [id number] Date(s): 10/16/17 - 10/16/17 [facility] [address] [place] [address]- [phone] Encounter Diagnosis Pneumonia (Discharge Diagnosis) - 10/16/17 SOB (shortness of breath) (Discharge Diagnosis) - 10/16/17 Swelling of lower extremity (Discharge Diagnosis) - 10/16/17 SOB (shortness of breath) (Discharge Diagnosis) - 10/16/17 Discharge Disposition: Home or Self Care Attending Physician: Licha Palma MD Vital Signs 1 2 3 Most recent to oldest [Reference Range]: 175.26 cm (10/16/17 5:56 AM) Height 98.2 DegF (10/16/17 2:14 PM) 97.7 DegF (10/16/17 11:10 AM) 98.9 DegF (10/16/17 6:21 AM) Temperature Oral [96.4-99.1 DegF] 116/65 mmHg (10/16/17 2:56 PM) 116/64 mmHg (10/16/17 1:18 PM) 123/68 mmHg (10/16/17 12:07 PM) Blood Pressure [90-140/60-90 mmHg] 20 BRMIN (10/16/17 2:56 PM) 13 BRMIN *LOW* (10/16/17 2:14 PM) 27 BRMIN *HI* (10/16/17 1:18 PM) Respiratory Rate [14-20 BRMIN] 62 bpm (10/16/17 6:55 AM) 76 bpm (10/16/17 6:21 AM) 78 bpm (10/16/17 5:56 AM) Peripheral Pulse Rate [60-100 bpm] 113.636 kg (10/16/17 5:56 AM) Weight 37 m2 (10/16/17 5:56 AM) Body Mass Index Problem List Condition Effective Dates Status Health Status Informant Pleural Resolved effusion(Confirmed) Rheumatoid Resolved arthritis(Confirmed) Allergies, Adverse Reactions, Alerts Substance Reaction Severity Status NKDA Active Medications albuterol 90 mcg/inh inhalation aerosol 2 puff, INHALATION, QID, # 17 gm, 0 Refill(s) Start Date: 10/16/17 Status: Ordered albuterol-ipratropium 2.5-0.5 mg inhalation solution 3 mL, Route: NEB, Drug Form: SOLN, Dosing Weight 113.636, kg, ONCE, STAT, Start date: 10/16/17 7:25:00 CDT, Stop date: 10/16/17 7:25:00 CDT Notes: (Same as: Markos) Start Date: 10/16/17 Stop Date: 10/16/17 Status: Completed Levaquin 750 mg oral tablet 750 mg=1 tab, PO, Daily, X 5 day, # 5 tab, 0 Refill(s) Start Date: 10/16/17 Stop Date: 10/21/17 Status: Ordered levofloxacin 750 mg, 150 mL, Route: IVPB, Drug form: SOLN, ONCE, Dosing Weight 113.636, kg, S tart date: 10/16/17 11:05:00 CDT, Stop date: 10/16/17 11:05:00 CDT, ABX Indicati on: Pneumonia Notes: (Same as:Levaquin) Start Date: 10/16/17 Stop Date: 10/16/17 Status: Completed methylPREDNISolone SODium SUCCinate 125 mg, 2 mL, Route: IVP, Drug form: INJ, ONCE, Dosing Weight 113.636, kg, Prior ity: STAT, Start date: 10/16/17 7:25:00 CDT, Stop date: 10/16/17 7:25:00 CDT Notes: (Same as:Solu-MEDROL, A-Methapred) Start Date: 10/16/17 Stop Date: 10/16/17 Status: Completed Saline Flush 0.9% 10 mL, Route: IVP, Drug Form: INJ, Dosing Weight 113.636, kg, PRN, PRN Line Flus h, Start date: 10/16/17 7:25:00 CDT, Duration: 30 day, Stop date: 11/15/17 7:24: 00 CDT Notes: (Same as: BD Posiflush) Start Date: 10/16/17 Stop Date: 10/16/17 Status: Discontinued Results ELECTROLYTES Most recent to 1 oldest [Reference Range]: Sodium Lvl [135-145 138 mEq/L mEq/L] (10/16/17 7:29 AM) Potassium Lvl 4.0 mEq/L [3.5-5.1 mEq/L] (10/16/17 7:29 AM) Chloride Lvl [95-109 104 mEq/L mEq/L] (10/16/17 7:29 AM) CO2 [24-32 mEq/L] 27 mEq/L (10/16/17 7:29 AM) AGAP [10.0-20.0 11.0 mEq/L mEq/L] (10/16/17 7:29 AM) CHEM PANEL Most recent to 1 oldest [Reference Range]: Creatinine Lvl 0.98 mg/dL [0.50-1.40 mg/dL] (10/16/17 7:29 AM) eGFR 89 mL/min/1.73m2 1 *NA* (10/16/17 7:29 AM) BUN [7-22 mg/dL] 10 mg/dL (10/16/17 7:29 AM) Glucose Lvl [70-99 216 mg/dL mg/dL] *HI* (10/16/17 7:29 AM) Calcium Lvl 8.5 mg/dL [8.5-10.5 mg/dL] (10/16/17 7:29 AM) Lactic Acid Lvl 0.7 mMol/L [0.5-2.2 mMol/L] (10/16/17 10:54 AM) 1Result Comment: The eGFR is calculated using [...] BMI. CARDIAC ENZYMES Most recent to 1 oldest [Reference Range]: Total CK [12-191 64 unit/L unit/L] (10/16/17 7:29 AM) CK MB [0.5-3.6 2.5 ng/mL ng/mL] (10/16/17 7:29 AM) CK MB Index 3.9 [0.0-2.5] *HI* (10/16/17 AM) Troponin-I <0.02 ng/mL [0.00-0.40 ng/mL] (10/16/17 7:29 AM) BNP [<=100 pg/mL] 20 pg/mL (10/16/17 7:29 AM) HEMATOLOGY Most recent to 1 oldest [Reference Range]: WBC [3.7-10.4 K/CMM] 14.4 K/CMM *HI* (10/16/17 7:29 AM) RBC [4.70-6.10 5.02 M/CMM M/CMM] (10/16/17 7:29 AM) Hgb [14.0-18.0 g/dL] 15.6 g/dL (10/16/17 7:29 AM) Hct [42.0-54.0 %] 46.7 % (10/16/17 7:29 AM) MCV [80.0-94.0 fL] 93.1 fL (10/16/17 7:29 AM) MCH [27.0-31.0 pg] 31.0 pg (10/16/17 7:29 AM) MCHC [32.0-36.0 33.3 g/dL g/dL] (10/16/17 7:29 AM) RDW [11.5-14.5 %] 14.0 % (10/16/17 7:29 AM) MPV [7.4-10.4 fL] 8.9 fL (10/16/17 7:29 AM) Platelet [133-450 230 K/CMM K/CMM] (10/16/17 7:29 AM) Segs [45.0-75.0 %] 82.9 % *HI* (10/16/17 7:29 AM) Lymphocytes 11.0 % [20.0-40.0 %] *LOW* (10/16/17 7:29 AM) Monocytes [2.0-12.0 5.2 % %] (10/16/17 7:29 AM) Basophils [0.0-1.0 0.9 % %] (10/16/17 7:29 AM) Segs-Bands # 11.9 K/CMM [1.5-8.1 K/CMM] *HI* (10/16/17 7:29 AM) Lymphocytes # 1.6 K/CMM [1.0-5.5 K/CMM] (10/16/17 7:29 AM) Monocytes # [0.0-0.8 0.7 K/CMM K/CMM] (10/16/17 7:29 AM) Basophils # [0.0-0.2 0.1 K/CMM K/CMM] (10/16/17 7:29 AM) PT [12.0-14.7 13.8 seconds seconds] (10/16/17 7:29 AM) INR [0.85-1.17] 1.06 (10/16/17 7:29 AM) PTT [22.9-35.8 31.3 seconds seconds] (10/16/17 7:29 AM) Immunizations Given and Recorded Vaccine Date Status Refusal Reason pneumococcal 23-valent vaccine 02/08/16 Given Procedures Procedure Date Related Diagnosis Body Site Status Closed reduction of dislocation of shoulder Completed Social History Social History Type Response Smoking Status Current every day smoker; Type: Cigarettes; Exposure to Tobacco Smoke None; Cigarette Smoking Last 365 Days No; Reg Smoking Cessation Counseling Yes entered on: 10/16/17 Assessment and Plan No data available for this section
--- OUTSIDE RECORDS SUMMARY | 2018-12-31 12:07 | XMS REPORT | Summary of Care ---
Author Author [facility] Organization [facility] Address Unknown Phone Unavailable Encounter KHADIJAH Alanis(AL) [id number] Date(s): 01/07/18 - 01/22/18 [facility] [address] [place] [address]- [phone] Discharge Disposition: Home or Self Care Attending Physician: Jose Angel Hogue MD Admitting Physician: Jose Angel Hogue MD Vital Signs 1 2 3 Most recent to oldest [Reference Range]: 182.88 cm (01/11/18 7:03 AM) 182.88 cm (01/11/18 2:48 AM) 182.88 cm (01/10/18 10:35 PM) Height 98.7 DegF (01/22/18 3:30 PM) 99.3 DegF *HI* (01/22/18 11:42 AM) 98.3 DegF (01/22/18 8:05 AM) Temperature Oral [96.4-99.1 DegF] 110/66 mmHg (01/22/18 3:30 PM) 95/67 mmHg (01/22/18 11:42 AM) 107/65 mmHg (01/22/18 8:05 AM) Blood Pressure [90-140/60-90 mmHg] 18 BRMIN (01/22/18 3:30 PM) 18 BRMIN (01/22/18 11:42 AM) 12 BRMIN *LOW* (01/22/18 10:50 AM) Respiratory Rate [14-20 BRMIN] 86 bpm (01/22/18 3:30 PM) 82 bpm (01/22/18 11:42 AM) 69 bpm (01/22/18 8:05 AM) Peripheral Pulse Rate [60-100 bpm] 107.7 kg (01/07/18 6:22 AM) 107.7 kg (01/07/18 4:31 AM) Weight 32.2 m2 (01/07/18 6:22 AM) Body Mass Index Problem List Condition Effective Dates Status Health Status Informant Pleural Resolved effusion(Confirmed) Rheumatoid Resolved arthritis(Confirmed) Allergies, Adverse Reactions, Alerts Substance Reaction Severity Status NKDA Active Medications ATTN RN please do not admin vanc dose until trough drawn* ATTN RN please do not admin vanc dose until trough drawn*, ATTN RN, Drug form: MISC, Route: MISC, ONCE, 01/16/18 17:00:00 CDT, Stop date: 01/16/18 17:00: 00 CDT Start Date: 01/16/18 Stop Date: 01/16/18 Status: Completed albuterol 0.083% inhalation solution 2.49 mg, 3 mL, Route: NEB, Drug form: SOLN, PRN, Dosing Weight 107.7, kg, PRN Re spiratory Pathway, Start date: 01/08/18 10:21:00 CDT, Duration: 30 day, Stop aminta e: 02/07/18 10:20:00 CDT Notes: SEE RT DOCUMENTATION (Same as: Proventil) Start Date: 01/08/18 Stop Date: 01/22/18 Status: Discontinued albuterol-ipratropium 2.5-0.5 mg inhalation solution 3 mL, Route: NEB, Drug Form: SOLN, Dosing Weight 107.2, kg, ONCE, STAT, Start da te: 01/07/18 1:33:00 CDT, Stop date: 01/07/18 1:33:00 CDT Start Date: 01/07/18 Stop Date: 01/07/18 Status: Completed AMIODarone 200 mg, 1 tab, Route: PO, Drug form: TAB, BID, Dosing Weight 107.7, kg, Start da te: 01/16/18 21:00:00 CDT, Duration: 30 day, Stop date: 02/15/18 9:00:00 CDT Notes: (Same as: Cordarone) Start Date: 01/16/18 Stop Date: 01/19/18 Status: Discontinued AMIODarone 200 mg, 1 tab, Route: PO, Drug form: TAB, Daily, Dosing Weight 107.7, kg, Priori ty: Routine, Start date: 01/20/18 9:00:00 CDT, Duration: 30 day, Stop date: 01/25 12/11 9:00:00 CDT Notes: (Same as: Cordarone) Start Date: 01/20/18 Stop Date: 01/22/18 Status: Discontinued AMIODarone + Dextrose 5% in Water 100 mL 150 mg, 3 mL, Route: IVPB, ONCE, Dosing Weight 107.7, kg, Start date: 01/15/18 1 0:51:00 CDT, Stop date: 01/15/18 10:51:00 CDT Notes: Central administration only for concentrations > 2 mg/ml."Recommendation: Use an in-line filter during administration for continuous infusions to reduce the incidence of phlebitis"(Same as Codarone) MEDICATION WASTE Product Size: 150 mgProduct Wasted: ___ mg Start Date: 01/15/18 Stop Date: 01/15/18 Status: Completed AMIODarone 200 mg oral tablet 200 mg=1 tab, PO, Daily, # 30 tab, 0 Refill(s), Pharmacy: [facility] [id number] Start Date: 01/20/18 Stop Date: 02/19/18 Status: Ordered AMIODarone 900 mg in D5W 500 ml IV 900 mg + Dextrose 5% in Water IV 482 mL 900 mg, 18 mL, Rate: 1 mg/min for 6 hours, then reduce to 0.5 mg/min, Dosing Amaury ght 107.7, kg, Route: IV, Total Volume: 500, Start Date: 01/15/18 10:51:00 CDT, Duration: 1 day, Stop date: 01/16/18 10:50:00 CDT, Replace Every: 24 hr Notes: Central administration only for concentration > 2 mg/ml. Use Glass Bottle or Non PVC Bag"Use 0.22 micron in-line filter" MEDICATION WASTE Product Size: 900 mgProduct Wasted: ___ mg Start Date: 01/15/18 Stop Date: 01/16/18 Status: Completed Carafate 1 gm, 1 tab, Route: PO, Drug form: TAB, QID-Before Meals, Dosing Weight 107.7, k g, Start date: 01/08/18 11:30:00 CDT, Duration: 30 day, Stop date: 02/07/18 7:30 :00 CDT Start Date: 01/08/18 Stop Date: 01/12/18 Status: Discontinued ceFAZolin (ANES) Route: IV, Drug form: INJ, ONCE, Stop date: 01/10/18 9:26:00 CDT Start Date: 01/10/18 Stop Date: 01/10/18 Status: Completed cefepime + Sodium Chloride 0.9% IV 100 mL 1 gm, Route: IVPB, ABXQ8H, Dosing Weight 107.7, kg, (CrCl >/=50 ml/min), Start date: 01/14/18 18:00:00 CDT, Duration: 10 day, Stop date: 01/24/18 10:00:00 CDT, ABX Indication: ED - Suspected Sepsis Notes: (Same As: Maxipime) MEDICATION WASTE Product Size: 1000 mgProduc t Wasted: ___ mg Start Date: 01/14/18 Stop Date: 01/17/18 Status: Discontinued cefepime + Sodium Chloride 0.9% IV 100 mL 2 gm, Route: IVPB, ABXQ8H, Dosing Weight 107.7, kg, (CrCl >/=50 ml/min, [employer] SUPER[employer] infection or neutropenic fever), Start date: 01/18/18 0:00:00 CDT, Duration: 10 day, Stop date: 01/27/18 16:00:00 CDT, ABX Indication: Pneumonia Notes: (Same as: Maxipime) MEDICATION WASTE Product Size: 2000 mgProduc t Wasted: ___ mg Start Date: 01/18/18 Stop Date: 01/19/18 Status: Discontinued chlorhexidine topical 0.12% liquid 15 mL, Route: Swab Mouth, Q12H, Drug form: LIQ, Start date: 01/07/18 21:00:00 CD T, Duration: 30 day, Stop date: 02/06/18 9:00:00 CDT Notes: (Same As: Peridex) Start Date: 01/07/18 Stop Date: 01/12/18 Status: Discontinued chlorhexidine topical 0.12% liquid 15 mL, Route: Swab Mouth, PRN, Drug form: LIQ, PRN Other -See Comment, Start aminta e: 01/07/18 16:03:00 CDT, Duration: 30 day, Stop date: 02/06/18 16:02:00 CDT Notes: (Same As: Peridex) Start Date: 01/07/18 Stop Date: 01/12/18 Status: Discontinued chlorhexidine topical 0.12% liquid 15 mL, Route: Swab Mouth, PRN, PRN Other -See Comment, Start date: 01/07/18 16:0 2:00 CDT, Duration: 30 day, Stop date: 02/06/18 16:01:00 CDT Start Date: 01/07/18 Stop Date: 01/07/18 Status: Discontinued chlorhexidine topical 0.12% liquid 15 mL, Route: Swab Mouth, Q12H, Start date: 01/07/18 21:00:00 CDT, Duration: 30 day, Stop date: 02/06/18 9:00:00 CDT Start Date: 01/07/18 Stop Date: 01/07/18 Status: Canceled D5NS 1000 mL 1,000 mL, Rate: 100 ml/hr, Infuse over: 10 hr, Route: IV, Dosing Weight 107.7 kg , Total Volume: 1,000, Start date: 01/13/18 14:04:00 CDT, Duration: 30 day, Stop date: 02/12/18 14:03:00 CDT, 2.36, m2 Start Date: 01/13/18 Stop Date: 01/13/18 Status: Discontinued D5W 1/2NS 1,000 mL 1,000 mL, Rate: 100 ml/hr, Infuse over: 10 hr, Route: IV, Dosing Weight 107.7 kg , Total Volume: 1,000, Start date: 01/13/18 14:04:00 CDT, Duration: 30 day, Stop date: 02/12/18 14:03:00 CDT, 2.36, m2 Start Date: 01/13/18 Stop Date: 01/15/18 Status: Discontinued dexamethasone (ANES) Route: IV, Drug form: INJ, ONCE, Stop date: 01/10/18 9:31:00 CDT Start Date: 01/10/18 Stop Date: 01/10/18 Status: Completed digoxin 250 microgram, 1 mL, Route: IV, Drug form: INJ, ONCE, Dosing Weight 107.7, kg, S tart date: 01/15/18 4:47:00 CDT, Stop date: 01/15/18 4:47:00 CDT Notes: (Same as: Lanoxin) Start Date: 01/15/18 Stop Date: 01/15/18 Status: Completed digoxin 250 mcg (0.25 mg) oral tablet 0.25 mg, 1 tab, Route: PO, Drug form: TAB, Daily, Dosing Weight 107.7, kg, Start date: 01/16/18 9:00:00 CDT, Duration: 30 day, Stop date: 02/14/18 9:00:00 CDT Notes: Take on an Empty Stomach (Same as: Lanoxin) Start Date: 01/16/18 Stop Date: 01/15/18 Status: Canceled diltiazem 5 mg, 1 mL, Route: IV, Drug form: INJ, ONCE, Dosing Weight 107.7, kg, Start date : 01/15/18 1:26:00 CDT, Stop date: 01/15/18 1:26:00 CDT Notes: (Same as: Cardizem) Start Date: 01/15/18 Stop Date: 01/15/18 Status: Completed famotidine 20 mg, 2 mL, Route: IVP, Drug form: INJ, Q12H, Dosing Weight 107.7, kg, Start da te: 01/08/18 9:00:00 CDT, Duration: 30 day, Stop date: 02/06/18 21:00:00 CDT Notes: (Same as: Pepcid)Can be dilute in 5-10cc NS IVP: Slow IV push over at le ast 2 minutes. Start Date: 01/08/18 Stop Date: 01/08/18 Status: Discontinued famotidine 20 mg, Route: IVPB, Q12H, Dosing Weight 107.7, kg, Start date: 01/07/18 21:00:00 CDT, Duration: 30 day, Stop date: 02/06/18 9:00:00 CDT Start Date: 01/07/18 Stop Date: 01/07/18 Status: Canceled fentaNYL 25 microgram, 0.5 mL, Route: IV, Drug form: INJ, Q2H, Dosing Weight 107.7, kg, P RN Pain Score 6-10, Start date: 01/11/18 9:20:00 CDT, Duration: 30 day, Stop aminta e: 02/10/18 9:19:00 CDT Notes: (Same as: Sublimaze) Preservative free. Start Date: 01/11/18 Stop Date: 01/12/18 Status: Discontinued fentaNYL (ANES) Route: IV, Drug form: INJ, ONCE, Stop date: 01/10/18 9:26:00 CDT Start Date: 01/10/18 Stop Date: 01/10/18 Status: Completed fentaNYL 1250 microgram in NS 250 mL (Titrate.) IV 1,250 microgram 1,250 microgram, 250 mL, Rate: Titrate, Start Dose: 50 microgram/hr, Titration: 25 microgram/hour every 15 minutes, Goal(s): -2, Max Dose: 300 microgram/hr, Rou te: IV, Dosing Weight 107.7 kg, Total Volume: 250, Start date: 01/07/18 11:25:00 CDT, Durat... Notes: Concentration: 5 microgram / ml Start Date: 01/07/18 Stop Date: 01/11/18 Status: Discontinued furosemide 20 mg oral tablet 20 mg=1 tab, PO, Daily, # 30 tab, 0 Refill(s), Pharmacy: [facility] [id number] Start Date: 01/20/18 Stop Date: 02/19/18 Status: Ordered furosemide 20 mg oral tablet 20 mg, 1 tab, Route: PO, Drug form: TAB, Daily, Dosing Weight 107.7, kg, Start d ate: 01/12/18 9:00:00 CDT, Duration: 30 day, Stop date: 02/10/18 9:00:00 CDT Notes: (Same as: Lasix) May cause GI upset. Give with food or milk. Start Date: 01/12/18 Stop Date: 01/22/18 Status: Discontinued furosemide 20 mg oral tablet 20 mg, 1 tab, Route: PO, Drug form: TAB, Q12H, Dosing Weight 107.7, kg, Start da te: 01/08/18 10:24:00 CDT, Duration: 30 day, Stop date: 02/07/18 9:00:00 CDT Notes: (Same as: Lasix) May cause GI upset. Give with food or milk. Start Date: 01/08/18 Stop Date: 01/11/18 Status: Discontinued glycopyrrolate (ANES) Route: IV, Drug form: INJ, ONCE, Stop date: 01/10/18 9:46:00 CDT Start Date: 01/10/18 Stop Date: 01/10/18 Status: Completed heparin 5,000 unit, 1 mL, Route: SUB-Q, Drug form: INJ, Q12H, Dosing Weight 107.7, kg, S tart date: 01/07/18 21:00:00 CDT, Duration: 30 day, Stop date: 02/06/18 9:00:00 CDT Notes: porcine heparin Start Date: 01/07/18 Stop Date: 01/15/18 Status: Discontinued Lactated Ringers Injection IV (ANES) 1000 mL Route: IV, Total Volume: 1,000, Start date: 01/10/18 8:20:00 CDT, Stop date: 9:20:00 CDT Start Date: 01/10/18 Stop Date: 01/10/18 Status: Completed leflunomide 10 mg, 1 tab, Route: PO, Drug form: TAB, Bedtime, Dosing Weight 107.7, kg, Start date: 01/08/18 21:00:00 CDT, Duration: 30 day, Stop date: 02/06/18 21:00:00 CDT Notes: (Same as: Arava) Start Date: 01/08/18 Stop Date: 01/22/18 Status: Discontinued leflunomide 10 mg oral tablet 10 mg=1 tab, PO, Bedtime, # 30 tab, 0 Refill(s), Pharmacy: [place] [facility] [id number] Start Date: 01/20/18 Stop Date: 02/19/18 Status: Ordered leflunomide 10 mg oral tablet 10 mg=1 tab, PO, Bedtime, Daily, 0 Refill(s) Start Date: 01/07/18 Stop Date: 01/20/18 Status: Discontinued Levaquin 750 mg, 3 tab, Route: PO, Drug form: TAB, [id number], Dosing Weight 107.7, kg, Prio rity: STAT, Start date: 01/20/18 12:52:00 CDT, Duration: 10 day, Stop date: 12/11 12:52:00 CDT, ABX Indication: Pneumonia Notes: Do not give w/antacids, dairy pdt & minerals Take 1 hr before or 2 hr after dairy pdt (Same as:Levaquin) Start Date: 01/20/18 Stop Date: 01/22/18 Status: Discontinued levofloxacin 750 mg oral tablet 750 mg=1 tab, PO, [id number], X 10 day, # 10 tab, 0 Refill(s), Pharmacy: [id number] Start Date: 01/20/18 Stop Date: 01/30/18 Status: Ordered lidocaine-epi 1%-[id number] 30 mL, Route: SUB-Q, Drug Form: INJ, Dosing Weight 107.7, kg, ONCE, Start date: 01/10/18 7:25:00 CDT, Stop date: 01/10/18 7:25:00 CDT Notes: (Same as: Xylocaine w/Epinephrine) Start Date: 01/10/18 Stop Date: 01/10/18 Status: Completed Lopressor 5 mg, 5 mL, Route: IVP, Drug form: INJ, ONCE, Dosing Weight 107.7, kg, PRN Other -See Comment, Start date: 01/15/18 10:30:00 CDT Notes: (Same as: Lopressor)Push over 2 minutes Start Date: 01/15/18 Stop Date: 01/15/18 Status: Completed Lovenox 110 mg, 0.73 mL, Route: SUB-Q, Drug form: INJ, [id number], Dosing Weight 107.7, kg , Start date: 01/15/18 13:00:00 CDT, Duration: 30 day, Stop date: 02/14/18 1:00: 00 CDT Start Date: 01/15/18 Stop Date: 01/16/18 Status: Discontinued melatonin 3 mg oral tablet 3 mg, 1 tab, Route: PO, Drug Form: TAB, Dosing Weight 107.7, kg, Bedtime, PRN In somnia, Start date: 01/13/18 16:16:00 CDT, Duration: 30 day, Stop date: 02/12/18 16:15:00 CDT Notes: (Same as: Melatonin) Start Date: 01/13/18 Stop Date: 01/22/18 Status: Discontinued methylPREDNISolone SODium SUCCinate 20 mg, 0.5 mL, Route: IV, Drug form: INJ, Daily, Dosing Weight 107.7, kg, Start date: 01/07/18 9:00:00 CDT, Duration: 30 day, Stop date: 02/05/18 9:00:00 CDT Notes: (Same as:Solu-MEDROL, A-Methapred) Start Date: 01/07/18 Stop Date: 01/11/18 Status: Discontinued methylPREDNISolone SODium SUCCinate 125 mg, 2 mL, Route: IVP, Drug form: INJ, ONCE, Dosing Weight 107.2, kg, Priorit y: STAT, Start date: 01/07/18 1:33:00 CDT, Stop date: 01/07/18 1:33:00 CDT Notes: (Same as:Solu-MEDROL, A-Methapred) Start Date: 01/07/18 Stop Date: 01/07/18 Status: Completed metoprolol 5 mg/5 ml INJ 5 mg, 5 mL, Route: IVP, Drug form: INJ, ONCE, Dosing Weight 107.7, kg, Start aminta e: 01/15/18 10:18:00 CDT, Stop date: 01/15/18 10:18:00 CDT Notes: (Same as: Lopressor)Push over 2 minutes Start Date: 01/15/18 Stop Date: 01/15/18 Status: Deleted metoprolol 5 mg/5 ml INJ 2.5 mg, 2.5 mL, Route: IV, Drug form: INJ, ONCE, Dosing Weight 107.7, kg, Start date: 01/15/18 2:21:00 CDT, Stop date: 01/15/18 2:21:00 CDT Notes: (Same as: Lopressor)Push over 2 minutes Start Date: 01/15/18 Stop Date: 01/15/18 Status: Completed midazolam (ANES) Route: IV, Drug form: SOLN, ONCE, Stop date: 01/10/18 9:16:00 CDT Start Date: 01/10/18 Stop Date: 01/10/18 Status: Completed midazolam 50 mg in NS 50 mL (Titrate.) IV 50 mg 50 mg, 50 mL, Rate: Titrate, Start Dose: 1 mg/hr, Titration: Rebolus 1 mg IV and /or Titrate infusion by 1 mg/hour every 30 minutes, Goal(s): -2, Max Dose: 10 mg /hr, Route: IV, Dosing Weight 107.7 kg, Total Volume: 50, Start date: 01/07/18 1 1:25:00 CDT... Notes: (Same as: Versed) Start Date: 01/07/18 Stop Date: 01/11/18 Status: Discontinued morphine Sulfate 6 mg, 3 mL, Route: PO, Drug form: SOLN, Q4H, Dosing Weight 107.7, kg, PRN Pain S core 7-10, Start date: 01/12/18 14:41:00 CDT, Duration: 30 day, Stop date: 02/11 14:40:00 CDT Notes: (Same as:MORPhine Sulfate) Start Date: 01/12/18 Stop Date: 01/22/18 Status: Discontinued Mucinex 600 mg, 1 tab, Route: PO, Drug form: ERTAB, Q12H, Dosing Weight 107.7, kg, Prior ity: NOW, Start date: 01/19/18 21:08:00 CDT, Duration: 30 day, Stop date: 21:00:00 CDT Notes: (Same as: Guaifenesin LA, Humibid LA, Mucinex)"Do Not Crush" Take medica tion with plenty of water. Start Date: 01/19/18 Stop Date: 01/22/18 Status: Discontinued multivitamin Daily, 0 Refill(s) Start Date: 01/07/18 Stop Date: 01/20/18 Status: Discontinued mupirocin topical 1 appl, Route: NASAL, Q12H, Drug form: OINT, Start date: 01/08/18 9:00:00 CDT, D uration: 5 day, Stop date: 01/12/18 21:00:00 CDT, MRSA Decolonization Start Date: 01/08/18 Stop Date: 01/12/18 Status: Completed neostigmine (ANES) Route: IV, Drug form: INJ, ONCE, Stop date: 01/10/18 9:46:00 CDT Start Date: 01/10/18 Stop Date: 01/10/18 Status: Completed NS (Bolus) IV 1,000 mL, 1,000 ml/hr, Infuse Over: 1 hr, Route: IV, 1,000, Drug form: INJ, ONCE , Priority: STAT, Dosing Weight 107.7 kg, Start date: 01/15/18 10:22:00 CDT, Sto p date: 01/15/18 10:22:00 CDT Start Date: 01/15/18 Stop Date: 01/15/18 Status: Completed Nurse pls update Height/Weight/Allergies in adhoc Nurse pls update Height/Weight/Allergies in adhoc, REMINDER, Drug form: MISC, Ro alina: MISC, Q15Min, 01/07/18 6:15:00 CDT, Duration: 1 day, Stop date: 01/08/18 6: 00:00 CDT Start Date: 01/07/18 Stop Date: 01/07/18 Status: Voided With Results ocular lubricant 1 appl, Route: BOTH EYES, Q6H, Drug form: OINT, Start date: 01/07/18 18:00:00 CD T, Duration: 30 day, Stop date: 02/06/18 12:00:00 CDT Notes: (mineral oil/petrolatum,white 3.5 gm oph OIN) (Same as:Hypotears) Start Date: 01/07/18 Stop Date: 01/11/18 Status: Discontinued ocular lubricant 1 appl, Route: BOTH EYES, Q6H, Start date: 01/07/18 18:00:00 CDT, Duration: 30 d ay, Stop date: 02/06/18 12:00:00 CDT Start Date: 01/07/18 Stop Date: 01/07/18 Status: Canceled pantoprazole 40 mg, 1 tab, Route: PO, Drug form: ECTAB, BID-Before Meals, Dosing Weight 107.7 , kg, Start date: 01/08/18 16:30:00 CDT, Duration: 30 day, Stop date: 02/07/18 7 :30:00 CDT Notes: Tablet should not be chewed or crushed.(Same as: Protonix) Start Date: 01/08/18 Stop Date: 01/08/18 Status: Canceled pantoprazole 40 mg oral enteric coated tablet 40 mg=1 tab, PO, BID-Before Meals, # 60 tab, 0 Refill(s), Pharmacy: [facility] [facility] [id number] Start Date: 01/20/18 Stop Date: 02/19/18 Status: Ordered Prevacid 30 mg, 10 mL, Route: NG, Drug form: SUSP, BID-Before Meals, Start date: 01/08/18 16:30:00 CDT, Duration: 30 day, Stop date: 02/07/18 7:30:00 CDT Notes: Take 1 hour before or 2 hours after meal; Expires in 14 days. Shake well before use. (Same as:Prevacid) Compounded Product - formulation not commerci ally available Start Date: 01/08/18 Stop Date: 01/16/18 Status: Voided With Results propofol (ANES) Route: IV, Drug form: INJ, ONCE, Stop date: 01/10/18 9:26:00 CDT Start Date: 01/10/18 Stop Date: 01/10/18 Status: Completed Protonix 40 mg, 1 tab, Route: PO, Drug form: ECTAB, BID-Before Meals, Start date: 8 17:30:00 CDT, Duration: 30 day, Stop date: 02/15/18 16:30:00 CDT Notes: Tablet should not be chewed or crushed.(Same as: Protonix) Start Date: 01/16/18 Stop Date: 01/22/18 Status: Discontinued racemic epinephrine 2.25% inhalation solution 0.5 mL, Route: NEB, Dosing Weight 107.2, kg, ONCE, STAT, Start date: 01/07/18 1: 29:00 CDT, Stop date: 01/07/18 1:29:00 CDT Start Date: 01/07/18 Stop Date: 01/07/18 Status: Completed racepinephrine 0.5 mL, Route: NEB, Dosing Weight 107.2, kg, ONCE, STAT, Start date: 01/07/18 1: 33:00 CDT, Stop date: 01/07/18 1:33:00 CDT Start Date: 01/07/18 Stop Date: 01/07/18 Status: Discontinued rivaroxaban 20 mg oral tablet 20 mg=1 tab, PO, QPM, # 30 tab, 0 Refill(s), Pharmacy: [facility] [id number] Start Date: 01/20/18 Stop Date: 02/19/18 Status: Ordered Rocephin + sterile water 10 mL 1 gm, Route: IV, [id number], Dosing Weight 107.7, kg, Start date: 01/07/18 7:00:00 CDT, Duration: 30 day, Stop date: 02/05/18 7:00:00 CDT, ABX Indication: Other (s pecify in Comments) Notes: (Same As: Rocephin).Use with 100 mL NS and infuse over 30 min MEDICA TION WASTE Product Size: 1000 mgProduct Wasted: ___ mg Start Date: 01/07/18 Stop Date: 01/14/18 Status: Discontinued rocuronium (ANES) Route: IV, Drug form: INJ, ONCE, Stop date: 01/10/18 9:26:00 CDT Start Date: 01/10/18 Stop Date: 01/10/18 Status: Completed Saline Flush 0.9% 10 mL, Route: IVP, Drug Form: INJ, Dosing Weight 107.2, kg, PRN, PRN Line Flush, Start date: 01/07/18 1:33:00 CDT, Duration: 30 day, Stop date: 02/06/18 1:32:00 CDT Notes: (Same as: BD Posiflush) Start Date: 01/07/18 Stop Date: 01/07/18 Status: Discontinued Tylenol 650 mg, 2 tab, Route: PO, Drug form: TAB, Q6H, Dosing Weight 107.7, kg, PRN Pain 1-3/Temp > 100.4 F, Start date: 01/14/18 17:33:00 CDT, Duration: 30 day, Stop date: 02/13/18 17:32:00 CDT Notes: Do not exceed 4 gm/day. (Same as: Tylenol) Start Date: 01/14/18 Stop Date: 01/22/18 Status: Discontinued vancomycin + Sodium Chloride 0.9% IV 500 mL 1,750 mg, Route: IVPB, [id number], Start date: 01/16/18 19:00:00 CDT, Duration: 12 day, Stop date: 01/28/18 7:00:00 CDT, ABX Indication: Pneumonia Notes: TIME CRITICAL MEDICATION(Same As: Vancocin)Infusion rate< 1000 mg: infuse over 1 [id number] - 1500 mg: infuse over 1.5 [id number] - 2000 mg: infuse over 2 hours> 2001 mg: infuse over 2.5 hoursFor adult patients only: Round to nearest 250 mg per Medical Staff approval MEDICATION WASTE Product Size: 1000 mgProduct Wasted: ___ mg Start Date: 01/16/18 Stop Date: 01/17/18 Status: Discontinued vancomycin 1,500 mg + Dextrose 5% in Water IV 250 mL Route: IVPB, [id number], Dosing Weight 107.7, kg, Start date: 01/14/18 18:00:00 CDT , Duration: 14 day, Stop date: 01/28/18 6:00:00 CDT, ABX Indication: ED - Suspec kahlil Sepsis Notes: TIME CRITICAL MEDICATION(Same As: Vancocin)Infusion rate< 1000 mg: infuse over 1 [id number] - 1500 mg: infuse over 1.5 [id number] - 2000 mg: infuse over 2 hours> 2001 mg: infuse over 2.5 hoursFor adult patients only: Round to nearest 250 mg per Medical Staff approval MEDICATION WASTE Product Size: 1000 mgProduct Wasted: ___ mg Start Date: 01/14/18 Stop Date: 01/16/18 Status: Discontinued Vitamin D3 0 Refill(s) Start Date: 01/07/18 Stop Date: 01/20/18 Status: Discontinued Xarelto 20 mg, 1 tab, Route: PO, Drug form: TAB, QPM, Dosing Weight 107.7, kg, Start aminta e: 01/16/18 17:00:00 CDT, Duration: 30 day, Stop date: 02/14/18 17:00:00 CDT Notes: (Same as: Xarelto)Administer with food Start Date: 01/16/18 Stop Date: 01/22/18 Status: Discontinued Zofran 4 mg, 2 mL, Route: IVP, Drug form: INJ, Q8H, Dosing Weight 107.7, kg, PRN Nausea , Start date: 01/12/18 19:38:00 CDT, Duration: 30 day, Stop date: 02/11/18 19:37 :00 CDT Notes: (Same as: Zofran) MEDICATION WASTE Product Size: 4 mgProduct Was kahlil: ___ mg Start Date: 01/12/18 Stop Date: 01/15/18 Status: Discontinued Zoloft 25 mg, 0.5 tab, Route: PO, Drug form: TAB, ONCE, Dosing Weight 107.7, kg, Start date: 01/13/18 22:00:00 CDT, Stop date: 01/13/18 22:00:00 CDT Notes: (Same as: Zoloft) Start Date: 01/13/18 Stop Date: 01/13/18 Status: Completed Zoloft 25 mg, 0.5 tab, Route: PO, Drug form: TAB, Bedtime, Dosing Weight 107.7, kg, Sta rt date: 01/14/18 21:00:00 CDT, Duration: 30 day, Stop date: 02/12/18 21:00:00 C DT Notes: (Same as: Zoloft) Start Date: 01/14/18 Stop Date: 01/22/18 Status: Discontinued Results ELECTROLYTES 1 2 3 Most recent to oldest [Reference Range]: 136 mEq/L (01/19/18 4:57 AM) 136 mEq/L (01/16/18 5:42 AM) 135 mEq/L (01/15/18 7:19 AM) Sodium Lvl [135-145 mEq/L] 4.0 mEq/L (01/19/18 4:57 AM) 3.8 mEq/L (01/16/18 5:42 AM) 4.2 mEq/L (01/15/18 7:19 AM) Potassium Lvl [3.5-5.1 mEq/L] 104 mEq/L (01/19/18 4:57 AM) 100 mEq/L (01/16/18 5:42 AM) 100 mEq/L (01/15/18 7:19 AM) Chloride Lvl [95-109 mEq/L] 23 mEq/L *LOW* (01/19/18 4:57 AM) 28 mEq/L (01/16/18 5:42 AM) 30 mEq/L (01/15/18 7:19 AM) CO2 [24-32 mEq/L] 13.0 mEq/L (01/19/18 4:57 AM) 11.8 mEq/L (01/16/18 5:42 AM) 9.2 mEq/L *LOW* (01/15/18 7:19 AM) AGAP [10.0-20.0 mEq/L] CHEM PANEL 1 2 3 Most recent to oldest [Reference Range]: 0.72 mg/dL (01/19/18 4:57 AM) 0.69 mg/dL (01/16/18 5:42 AM) 0.71 mg/dL (01/15/18 7:19 AM) Creatinine Lvl [0.50-1.40 mg/dL] 108 mL/min/1.73m2 1 *NA* (01/19/18 4:57 AM) 110 mL/min/1.73m2 2 *NA* (01/16/18 5:42 AM) 109 mL/min/1.73m2 3 *NA* (01/15/18 7:19 AM) eGFR 9 mg/dL (01/19/18 4:57 AM) 12 mg/dL (01/16/18 5:42 AM) 15 mg/dL (01/15/18 7:19 AM) BUN [7-22 mg/dL] 9 (01/07/18 1:24 AM) B/C Ratio [6-25] 86 mg/dL (01/19/18 4:57 AM) 133 mg/dL *HI* (01/16/18 5:42 AM) 148 mg/dL *HI* (01/15/18 7:19 AM) Glucose Lvl [70-99 mg/dL] 7.3 g/dL (01/07/18 1:24 AM) Total Protein [6.4-8.4 g/dL] 3.0 g/dL *LOW* (01/07/18 1:24 AM) Albumin Lvl [3.5-5.0 g/dL] 4.3 g/dL *HI* (01/07/18 1:24 AM) Globulin [2.7-4.2 g/dL] 0.7 (01/07/18 1:24 AM) A/G Ratio [0.7-1.6] 7.7 mg/dL *LOW* (01/19/18 4:57 AM) 8.4 mg/dL *LOW* (01/16/18 5:42 AM) 8.7 mg/dL (01/15/18 7:19 AM) Calcium Lvl [8.5-10.5 mg/dL] 3.5 mg/dL (01/13/18 4:42 AM) 3.6 mg/dL (01/12/18 4:29 AM) 2.8 mg/dL (01/11/18 3:59 AM) Phosphorus [2.5-4.5 mg/dL] 2.3 mg/dL (01/13/18 4:42 AM) 2.5 mg/dL *HI* (01/12/18 4:29 AM) 2.5 mg/dL *HI* (01/11/18 3:59 AM) Magnesium Lvl [1.8-2.4 mg/dL] 16 unit/L (01/07/18 1:24 AM) ALT [0-65 unit/L] 24 unit/L (01/07/18 1:24 AM) AST [0-37 unit/L] 77 unit/L (01/07/18 1:24 AM) Alk Phos [39-136 unit/L] 0.2 mg/dL (01/07/18 1:24 AM) Bili Total [0.2-1.3 mg/dL] 0.07 ng/mL (01/15/18 6:45 PM) Procalcitonin Lvl [0.00-0.10 ng/mL] 1Result Comment: The eGFR is calculated using [...] 3 Most recent to oldest [Reference Range]: 27 unit/L (01/15/18 3:12 PM) 28 unit/L (01/15/18 11:29 AM) 96 unit/L (01/07/18 1:24 AM) Total CK [12-191 unit/L] <1.0 ng/mL (01/15/18 11:29 AM) 2.8 ng/mL (01/07/18 1:24 AM) CK MB [0.5-3.6 ng/mL] 2.9 *HI* (01/07/18 1:24 AM) CK MB Index [0.0-2.5] <0.02 ng/mL (01/15/18 3:12 PM) <0.02 ng/mL (01/15/18 11:29 AM) <0.02 ng/mL (01/07/18 1:24 AM) Troponin-I [0.00-0.40 ng/mL] TOXICOLOGY 1 2 3 Most recent to oldest [Reference Range]: 17:30 *NA* (01/16/18 5:19 PM) Vanco Tr TND 11.7 ug/ml *NA* (01/16/18 5:19 PM) Vanco Tr URINE AND STOOL 1 2 3 Most recent to oldest [Reference Range]: Marked *ABN* (01/14/18 9:00 AM) UA Turbidity [Clear] Yellow *NA* (01/14/18 9:00 AM) UA Color [Yellow] 7.0 (01/14/18 9:00 AM) UA pH [5.0-8.0] 1.024 (01/14/18 9:00 AM) UA Spec Grav [<=1.030] Negative mg/dL *NA* (01/14/18 9:00 AM) UA Glucose [Negative mg/dL] Negative (01/14/18 9:00 AM) UA Blood [Negative] 20 mg/dL *ABN* (01/14/18 9:00 AM) UA Ketones [Negative mg/dL] Negative mg/dL (01/14/18 9:00 AM) UA Protein [Negative mg/dL] 4.0 mg/dL *HI* (01/14/18 9:00 AM) UA Urobilinogen [0.1-1.0 mg/dL] Negative *NA* (01/14/18 9:00 AM) UA Bili [Negative] Negative (01/14/18 9:00 AM) UA Leuk Est [Negative] Negative (01/14/18 9:00 AM) UA Nitrite [Negative] 4 /HPF (01/14/18 9:00 AM) UA WBC [0-5 /HPF] 3 /HPF *HI* (01/14/18 9:00 AM) UA RBC [0-2 /HPF] Few /HPF *NA* (01/14/18 9:00 AM) UA Bacteria [None Seen /HPF] None Seen *NA* (01/14/18 9:00 AM) UA Sq Epi Occasional /HPF *NA* (01/14/18 9:00 AM) UA Amorph Caryn [None Seen /HPF] HEMATOLOGY 1 2 3 Most recent to oldest [Reference Range]: 17.5 K/CMM *HI* (01/19/18 4:57 AM) 17.3 K/CMM *HI* (01/16/18 5:42 AM) 20.6 K/CMM *HI* (01/15/18 7:19 AM) WBC [3.7-10.4 K/CMM] 4.09 M/CMM *LOW* (01/19/18 4:57 AM) 3.91 M/CMM *LOW* (01/16/18 5:42 AM) 4.31 M/CMM *LOW* (01/15/18 7:19 AM) RBC [4.70-6.10 M/CMM] 10.6 g/dL *LOW* (01/19/18 4:57 AM) 10.3 g/dL *LOW* (01/16/18 5:42 AM) 11.5 g/dL *LOW* (01/15/18 7:19 AM) Hgb [14.0-18.0 g/dL] 34.1 % *LOW* (01/19/18 4:57 AM) 33.0 % *LOW* (01/16/18 5:42 AM) 36.0 % *LOW* (01/15/18 7:19 AM) Hct [42.0-54.0 %] 83.3 fL (01/19/18 4:57 AM) 84.2 fL (01/16/18 5:42 AM) 83.4 fL (01/15/18 7:19 AM) MCV [80.0-94.0 fL] 25.9 pg *LOW* (01/19/18 4:57 AM) 26.3 pg *LOW* (01/16/18 5:42 AM) 26.7 pg *LOW* (01/15/18 7:19 AM) MCH [27.0-31.0 pg] 31.0 g/dL *LOW* (01/19/18 4:57 AM) 31.3 g/dL *LOW* (01/16/18 5:42 AM) 32.0 g/dL (01/15/18 7:19 AM) MCHC [32.0-36.0 g/dL] 17.1 % *HI* (01/19/18 4:57 AM) 17.0 % *HI* (01/16/18 5:42 AM) 16.5 % *HI* (01/15/18 7:19 AM) RDW [11.5-14.5 %] 8.2 fL (01/19/18 4:57 AM) 9.1 fL (01/16/18 5:42 AM) 8.6 fL (01/15/18 7:19 AM) MPV [7.4-10.4 fL] 336 K/CMM (01/19/18 4:57 AM) 245 K/CMM (01/16/18 5:42 AM) 258 K/CMM (01/15/18 7:19 AM) Platelet [133-450 K/CMM] 72.1 % (01/19/18 4:57 AM) 69.1 % (01/16/18 5:42 AM) 77.4 % *HI* (01/15/18 7:19 AM) Segs [45.0-75.0 %] 12.6 % *LOW* (01/19/18 4:57 AM) 11.0 % *LOW* (01/16/18 5:42 AM) 8.8 % *LOW* (01/15/18 7:19 AM) Lymphocytes [20.0-40.0 %] 13.2 % *HI* (01/19/18 4:57 AM) 17.1 % *HI* (01/16/18 5:42 AM) 13.0 % *HI* (01/15/18 7:19 AM) Monocytes [2.0-12.0 %] 1.4 % (01/19/18 4:57 AM) 2.1 % (01/16/18 5:42 AM) 0.5 % (01/15/18 7:19 AM) Eosinophils [0.0-4.0 %] 0.7 % (01/19/18 4:57 AM) 0.7 % (01/16/18 5:42 AM) 0.3 % (01/15/18 7:19 AM) Basophils [0.0-1.0 %] 12.6 K/CMM *HI* (01/19/18 4:57 AM) 11.9 K/CMM *HI* (01/16/18 5:42 AM) 15.9 K/CMM *HI* (01/15/18 7:19 AM) Segs-Bands # [1.5-8.1 K/CMM] 2.2 K/CMM (01/19/18 4:57 AM) 1.9 K/CMM (01/16/18 5:42 AM) 1.8 K/CMM (01/15/18 7:19 AM) Lymphocytes # [1.0-5.5 K/CMM] 2.3 K/CMM *HI* (01/19/18 4:57 AM) 3.0 K/CMM *HI* (01/16/18 5:42 AM) 2.7 K/CMM *HI* (01/15/18 7:19 AM) Monocytes # [0.0-0.8 K/CMM] 0.2 K/CMM (01/19/18 4:57 AM) 0.4 K/CMM (01/16/18 5:42 AM) 0.1 K/CMM (01/15/18 7:19 AM) Eosinophils # [0.0-0.5 K/CMM] 0.1 K/CMM (01/19/18 4:57 AM) 0.1 K/CMM (01/16/18 5:42 AM) 0.1 K/CMM (01/15/18 7:19 AM) Basophils # [0.0-0.2 K/CMM] Normal (01/14/18 5:30 AM) See Note (01/10/18 3:52 AM) RBC Morph Moderate *ABN* (01/10/18 3:52 AM) Polychrom [None Seen] 1+ (01/10/18 3:52 AM) Hypochrom [None Seen] slight *NA* (01/10/18 3:52 AM) Target Cell Normal (01/14/18 5:30 AM) Normal (01/10/18 3:52 AM) Plt Morph Microbiology Reports TEST: Culture: Respiratory w/Gram Stain STATUS: Auth (Verified) BODY SITE: SOURCE: Tracheal Aspirate COLLECTED DATE/TIME: 01/14/18 3:30 PM FINAL REPORT Many Pseudomonas aeruginosa STAIN REPORT Gram Stain Performed By: [facility] ORGANISM:Pseudomonas aeruginosa Immunizations Given and Recorded Vaccine Date Status [...] Reg Smoking Cessation Counseling Yes entered on: 01/07/18 Assessment and Plan Extracted from: Title: Clinical Document Author: Tomás Hart MD Date: 01/22/18 Progress Note Cardiology [facility] Impression: New onset atrial fibrillation [...] palpitations. No edema. No fever. Objective: Telemetry VitalsTmp(F)[id number] 01/22 11:[id number]--- 01/22 10:53 98--- 01/22 10:50 1298--- 01/22 10:49 98--- 01/22 08:[id number]--- 24 Hr Tmax: 99.3F (37.39c) at 01/22 11:42Vital Signs are the last 5 in the past 48 hours. Gen: Alert, trach Neck: No JVD Lungs: Decreased at the bases Heart: normal S1, S2; no gallop Abd: Soft, nt, nd, +bs Ext: No edema Neuro: No focal deficits Skin: warm, moist Labs (Last four charted values) WBC H 17.5(JAN 19)H 17.3(JAN 16)H 20.6(JAN 15)H 21.3(JAN 14) Hgb L 10.6(JAN 19)L 10.3(JAN 16)L 11.5(JAN 15)L 11.7(JAN 14) Hct L 34.1(JAN 19)L 33.0(JAN 16)L 36.0(JAN 15)L 36.1(JAN 14) Plt 336(JAN 19)245(JAN 16)258(JAN 15)226(JAN 14) Na 136(JAN 19)136(JAN 16)135(JAN 15)136(JAN 14) K 4.0(JAN 19)3.8(JAN 16)4.2(JAN 15)3.9(JAN 14) CO2 L 23(JAN 19)28(JAN 16)30(JAN 15)29(JAN 14) Cl 104(JAN 19)100(JAN 16)100(JAN 15)98(JAN 14) Cr 0.72(JAN 19)0.69(JAN 16)0.71(JAN 15)0.79(JAN 14) BUN 9(JAN 19)12(JAN 16)15(JAN 15)16(JAN 14) Glucose Random 86(JAN 19)H 133(JAN 16)H 148(JAN 15)95(JAN 14) Mg 2.3(JAN 13)H 2.5(JAN 12)H 2.5(JAN 11)H 2.5(JAN 10) Phos 3.5(JAN 13)3.6(JAN 12)2.8(JAN 11)3.6(JAN 10) Ca L 7.7(JAN 19)L 8.4(JAN 16)8.7(JAN 15)8.7(JAN 14) Troponin <0.02(JAN 15)<0.02(JAN 15)<0.02(JAN 07) CK MB <1.0(JAN 15)2.8(JAN 07) Total CK 27(JAN 15)28(JAN 15)96(JAN 07) Scheduled Meds (8): 01/20/18 AMIODarone 200 mg PO Daily 01/12/18 furosemide (furosemide 20 mg oral tablet) 20 mg PO Daily 01/19/18 guaiFENesin (Mucinex) 600 mg PO Q12H 01/08/18 leflunomide 10 mg PO Bedtime 01/20/18 levofloxacin (Levaquin) 750 mg PO [id number] 01/16/18 pantoprazole (Protonix) 40 mg PO BID-Before Meals 01/16/18 rivaroxaban (Xarelto) 20 mg PO QPM 01/14/18 sertraline (Zoloft) 25 mg PO Bedtime Continuous Infusions: None Extracted from: Title: Clinical Document Author: Jose Angel Hogue MD [...] pulmonary services, and primary care physician. Extracted from: Title: Clinical Document Author: Hang Fischer MD Date: 01/15/18 INFECTIOUS DISEASES CONSULTATION NOTE Hang Fischer M.D. Attending: Theo Forbes: Service: Internal Medicine Code status: None Specified=FULL CODE Reason for Admission: STRIDOR Working DRG: Isolation: No Isolation/Standard Precautions Consulting Physicians: Tomás Hart MDOffice: Service: Cardiology Hermilo Paniagua MDOffice: Service: Physical Medicine/Rehabilitation Stevo Grossman MDOffice: Service: Otolaryngology Maxx Donis MDOffice: Service: Pulmonary, Medicine Moe Arroyo MDOffice: Service: Infectious Disease Hang Fischer MDOffice: Service: Infectious Disease Pk Coleman MDOffice: Service: Psychiatry Nancy Ji MDOffice: Service: Cardiology Seth Felipe MDOffice: Service: Otolaryngology Lucita Langston MDOffice: Service: Medicine HPI: This is a 52-year-old gentleman who has known past medical history significant for Bilateral vocal cord paralysis history of rheumatoid arthritis congestive heart failure GI bleeding and pleural effusion who presented to our facility with respiratory distress and stridor he was admitted to the ICU Underwent evaluation by ENT and pulmonary critical care he underwent change of his trach. His hospital course was unremarkable until he started to have some fevers 100.8 and 100 blood work showed rising white count his most recent white count is 20.6 creatinine 0.71 urinalysis was done which were negative all his cultures date are negative as well infectious diseases consultation was called to give recommendation PAST MEDICAL HISTORY: Cord paralysis, RA, congestive heart failure, GI bleeding, effusion. SURGICAL HISTORY: Closed reduction of dislocation of shoulder FAMILY HISTORY: Father: Heart disease Mother: Hypertension Allergies (1) ActiveReaction NKDANone documented SOCIAL HISTORY: Alcohol Details: Past, Type Beer, Liquor. Tobacco Details: Use: Current every day smoker. Type: Cigarettes. Ready to change: No. Household tobacco concerns: Yes. Tobacco smoke exposure: Lives with someone who smokes. Did the Patient Smoke Cigarettes Anytime During the Last 365 Days? Yes. Cessation Counseling Provided? No. Details: Use: Current every day smoker. Type: Cigarettes. 38 year(s). Started age 12.0 Years. Previous treatment: None. Ready to change: Yes. Household tobacco concerns: No. Tobacco smoke exposure: Lives with someone who smokes. Did the Patient Smoke Cigarettes Anytime During the Last 365 Days? Yes. Cessation Counseling Provided? No. Details: Use: Current every day smoker. Type: Cigarettes. Tobacco smoke exposure: None. Did the Patient Smoke Cigarettes Anytime During the Last 365 Days? No. Cessation Counseling Provided? Yes. Substance Abuse Details: Use: None. ROS: GENERAL: No change in appetite, energy or weight. No fever, chills or sweats. HEENT: No auditory or visual complaints. No tinnitus. No pharyngeal complaints RESPIRATORY: Nocough, SOB. CARDIOVASCULAR: No chest pain or pressure. No palpitations GASTROINTESTINAL: No dysphagia, odynophagia, heartburn, diarrhea or constipation. No nausea or vomiting. MUSCULOSKELETAL: No myalgias, arthralgias, joint swelling. NEUROLOGICAL: No vertigo or disturbance of balance or coordination.No motor or sensory complaints. No headache. GENITOURINARY: No dysuria, urgency or urinary frequency. No incontinence. MEDICATIONS: Scheduled Meds (7): 01/14/18 cefepime + Sodium Chloride 0.9% IV 100 mL 1 gm IVPB [id number] 25 ml/hr 01/15/18 enoxaparin (Lovenox) 110 mg SUB-Q [id number] 01/12/18 furosemide (furosemide 20 mg oral tablet) 20 mg PO Daily 01/08/18 lansoprazole (Prevacid) 30 mg NG BID-Before Meals 01/08/18 leflunomide 10 mg PO Bedtime 01/14/18 sertraline (Zoloft) 25 mg PO Bedtime 01/14/18 vancomycin 1,500 mg + Dextrose 5% in Water IV 250 mL 1,500 mg IVPB [id number] 166.67 ml/hr VITAL SIGNS: VitalsTmp(F)[id number] 01/15 13:00----[id number]--- 01/15 12:30----[id number]--- 01/15 12:15----[id number]--- 01/15 12:0897.6 01/15 11:30----[id number]--- 24 Hr Tmax: 100.8F (38.22c) at 01/14 16:00Vital Signs are the last 5 in the past 48 hours. PHYSICAL EXAMINATION: GENERAL: Well-developed, well-nourished in no apparent distress. HEENT: Head is normocephalic and atraumatic. PERRLA, EOMI, NECK: Supple. No carotid bruits. No lymphadenopathy or thyromegaly. CHEST: Symmetrical with equal expansion. LUNGS: CTA HEART: RRR, no murmurs. . GASTROINTESTINAL: Bowel sounds are normal. Soft, NT, ND. No guarding or rebound tenderness. EXTREMITIES: No edema or varicosities. Pulses 2+ symmetric. LABS: Labs (Last four charted values) WBC H 20.6(JAN 15)H 21.3(JAN 14)H 15.7(JAN 13)H 18.1(JAN 12) Hgb L 11.5(JAN 15)L 11.7(JAN 14)L 10.6(JAN 13)L 9.7(JAN 12) Hct L 36.0(JAN 15)L 36.1(JAN 14)L 33.7(JAN 13)L 31.2(JAN 12) Plt 258(JAN 15)226(JAN 14)229(JAN 13)229(JAN 12) Na 135(JAN 15)136(JAN 14)140(JAN 13)143(JAN 12) K 4.2(JAN 15)3.9(JAN 14)3.6(JAN 13)4.3(JAN 12) CO2 30(JAN 15)29(JAN 14)H 37(JAN 13)H 39(JAN 12) Cl 100(JAN 15)98(JAN 14)100(JAN 13)98(JAN 12) Cr 0.71(JAN 15)0.79(JAN 14)0.75(JAN 13)0.73(JAN 12) BUN 15(JAN 15)16(JAN 14)18(JAN 13)17(JAN 12) Glucose Random H 148(JAN 15)95(JAN 14)75(JAN 13)H 143(JAN 12) Mg 2.3(JAN 13)H 2.5(JAN 12)H 2.5(JAN 11)H 2.5(JAN 10) Phos 3.5(JAN 13)3.6(JAN 12)2.8(JAN 11)3.6(JAN 10) Ca 8.7(JAN 15)8.7(JAN 14)8.8(JAN 13)8.5(JAN 12) Troponin <0.02(JAN 15)<0.02(JAN 07) CK MB <1.0(JAN 15)2.8(JAN 07) Total CK 28(JAN 15)96(JAN 07) CULTURES: DATE/SOURCE/RESULT/ SENSITIVITIES: IMAGING: ASSESMENT AND PLAN: 52-year-old gentleman with 1. Sepsis rule 2. Leukocytosis 3. Low-grade fever 4. Fever of unknown origin 5. A. fib with RVR RECOMMENDATIONS: As per infectious disease standpoint patient seen and evaluated. Continue to monitor He received his lab work we add pro calcitonin level patient has been initiated on IV antibiotics in the form of cefepime yesterday few dosage of cefepime and vancomycin will continue to monitor to the culture data so far and give further recommendation based on further workup. We will continue to follow. Thank you for providing me the opportunity to take care of this patient.
--- OUTSIDE RECORDS SUMMARY | 2018-12-31 12:08 | XMS REPORT | Summary of Care ---
Author Author [facility] Organization [facility] Address Unknown Phone Unavailable Encounter KHADIJAH Alanis(AL) [id number] Date(s): 01/07/18 - 01/22/[address] [facility] [address] [place] [address]- Encounter Diagnosis Sepsis, unspecified organism (Final) - 01/30/18 Pneumonia due to Pseudomonas (Final) - Acute respiratory failure with hypoxia (Final) - Acute on chronic diastolic (congestive) heart failure (Final) - Chronic obstructive pulmonary disease with acute lower respiratory infection (Final) - Dependence on respirator [ventilator] status (Final) - Severe sepsis without septic shock (Final) - Nicotine dependence, cigarettes, uncomplicated (Final) - Major depressive disorder, single episode, unspecified (Final) - Anxiety disorder, unspecified (Final) - Anemia, unspecified (Final) - Obstructive sleep apnea (adult) (pediatric) (Final) - Unspecified atrial fibrillation (Final) - Paralysis of vocal cords and larynx, bilateral (Final) - Rheumatoid arthritis, unspecified (Final) - Dysphagia, unspecified (Final) - Sleep deprivation (Final) - long term (current) use of anticoagulants (Final) - Discharge Disposition: Home or Self Care Attending [...] CDT Notes: SEE RT DOCUMENTATION (Same as: Liz) Start Date: 01/08/18 Stop Date: 01/22/18 Status: [...] Daily, # 30 tab, 0 Refill(s), Pharmacy: [facility] [id number] Start Date: 01/20/18 Stop Date: 02/19/18 Status: [...] Dosing Weight 107.7, kg, (CrCl >/=50 ml/min, SQL 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 infection or neutropenic fever), Start date: 01/18/18 [...] Daily, # 30 tab, 0 Refill(s), Pharmacy: [facility] [id number] Start Date: 01/20/18 Stop Date: 02/19/18 Status: [...] Bedtime, # 30 tab, 0 Refill(s), Pharmacy: [facility] [id number] Start Date: 01/20/18 Stop Date: 02/19/18 Status: Ordered leflunomide 10 mg oral tablet 10 mg=1 tab, PO, Bedtime, Daily, 0 Refill(s) Start Date: 01/07/18 Stop Date: 01/20/18 Status: Discontinued Levaquin 750 mg, 3 tab, Route: PO, Drug form: TAB, [id number], Dosing Weight 107.7, kg, Prio rity: STAT, Start date: 01/20/18 12:52:00 CDT, Duration: 10 day, Stop date: 12/11 12:52:00 CDT, ABX Indication: Pneumonia Notes: Do not give w/antacids, dairy pdt & minerals Take 1 hr before or 2 hr after dairy pdt (Same as:Levaquin) Start Date: 01/20/18 Stop Date: 01/22/18 Status: Discontinued levofloxacin 750 mg oral tablet 750 mg=1 tab, PO, [id number], X 10 day, # 10 tab, 0 Refill(s), Pharmacy: [facility] [id number] Start Date: 01/20/18 Stop Date: 01/30/18 Status: Completed lidocaine-epi 1%-1:960902 30 mL, Route: SUB-Q, Drug Form: INJ, [...] 0.73 mL, Route: SUB-Q, Drug form: INJ, [id number], Dosing Weight 107.7, kg , Start date: [...] in adhoc, REMINDER, Drug form: MISC, Ro wiyot: MISC, Q15Min, 01/07/18 6:15:00 CDT, Duration: 1 [...] Meals, # 60 tab, 0 Refill(s), Pharmacy: [facility] [id number] Start Date: 01/20/18 Stop Date: 02/19/18 Status: [...] QPM, # 30 tab, 0 Refill(s), Pharmacy: [facility] [id number] Start Date: 01/20/18 Stop Date: 02/19/18 Status: Ordered Rocephin + sterile water 10 mL 1 gm, Route: IV, [id number], Dosing Weight 107.7, kg, Start date: 01/07/18 [...] IV 500 mL 1,750 mg, Route: IVPB, [id number], Start date: 01/16/18 19:00:00 CDT, Duration: 12 day, Stop date: 01/28/18 7:00:00 CDT, ABX Indication: Pneumonia Notes: TIME CRITICAL MEDICATION(Same As: Vancocin)Infusion rate< 1000 mg: infuse over 1 [id number] - 1500 mg: infuse over 1.5 [id number] - 2000 mg: infuse over 2 hours> 2001 mg: infuse over 2.5 hoursFor adult patients only: Round to nearest 250 mg per Medical Staff approval MEDICATION WASTE Product Size: 1000 mgProduct Wasted: ___ mg Start Date: 01/16/18 Stop Date: 01/17/18 Status: Discontinued vancomycin 1,500 mg + Dextrose 5% in Water IV 250 mL Route: IVPB, [id number], Dosing Weight 107.7, kg, Start date: 01/14/18 18:00:00 CDT , Duration: 14 day, Stop date: 01/28/18 6:00:00 CDT, ABX Indication: ED - [facility] Sepsis Notes: TIME CRITICAL MEDICATION(Same As: Vancocin)Infusion rate< 1000 mg: infuse over 1 [id number] - 1500 mg: infuse over 1.5 [id number] - 2000 mg: infuse over 2 hours> [...] AM) 15.9 K/CMM *HI* (01/15/18 7:19 AM) Neutrophils # [1.5-8.1 K/CMM] 2.2 K/CMM (01/19/18 4:57 [...] aeruginosa STAIN REPORT Gram Stain Performed By: [facility] ORGANISM:Pseudomonas aeruginosa Immunizations Given and Recorded [...] No entered on: 03/24/18 Assessment and Plan Extracted from: Title: Clinical Document Author: Tomás Hart MD Date: 01/22/18 Progress Note Cardiology [facility] Impression: New onset atrial fibrillation [...] palpitations. No edema. No fever. Objective: Telemetry VitalsTmp(F)[id number] 01/22 11:[id number]--- 01/22 10:53 98--- 01/22 10:50 1298--- 01/22 10:49 98--- 01/22 08:[id number]--- 24 Hr Tmax: 99.3F (37.39c) at 01/22 [...] Bedtime 01/20/18 levofloxacin (Levaquin) 750 mg PO [id number] 01/16/18 pantoprazole (Protonix) 40 mg PO BID-Before [...] physician. Extracted from: Title: Clinical Document Author: Pk Coleman MD Date: 01/21/18 Patient seen, report dictated
--- OUTSIDE RECORDS SUMMARY | 2018-12-31 12:08 | XMS REPORT | Summary of Care ---
Author Author [facility] Organization [facility] Address Unknown Phone Unavailable Encounter HQ Zeke([place]) [id number] Date(s): 03/24/18 - 03/24/18 [facility] [address] [place] [address]- Encounter Diagnosis Encounter for attention to tracheostomy (Final) - 05/27/18 Paralysis of vocal cords and larynx, bilateral (Final) - Rheumatoid arthritis, unspecified (Final) - care home (current) use of anticoagulants (Final) - Other termination clerk (current) drug therapy (Final) - Nicotine dependence, cigarettes, uncomplicated (Final) - Discharge Disposition: Home or Self Care Attending Physician: Jese Wolfe MD Vital Signs 1 2 3 Most recent to oldest [Reference Range]: 175.26 cm (03/24/18 6:11 AM) Height 98.1 DegF (03/24/18 8:00 AM) 97.9 DegF (03/24/18 6:11 AM) Temperature Oral [96.4-99.1 DegF] 137/93 mmHg (03/24/18 7:54 AM) 148/89 mmHg *HI* (03/24/18 7:30 AM) 131/92 mmHg (03/24/18 6:51 AM) Blood Pressure [90-140/60-90 mmHg] 14 BRMIN (03/24/18 6:56 AM) 20 BRMIN (03/24/18 6:11 AM) Respiratory Rate [14-20 BRMIN] 54 bpm *LOW* (03/24/18 6:11 AM) Peripheral Pulse Rate [60-100 bpm] 112.727 kg (03/24/18 6:11 AM) Weight 36.7 m2 (03/24/18 6:11 AM) Body Mass Index Problem List Condition [...]
--- OUTSIDE RECORDS SUMMARY | 2018-12-31 12:09 | XMS REPORT | Summary of Care ---
Author Author [facility] Organization [facility] Address Unknown Phone Unavailable Encounter HQ [place]) [id number] Date(s): 02/03/16 - 02/08/16 [facility] [address] [place] [address]- [phone] Discharge Disposition: Home or Self Care Attending Physician: Mike Enrique DO Admitting Physician: Mike Enrique DO Vital Signs 1 2 3 Most recent to oldest [Reference Range]: 175.26 cm (02/04/16 6:46 AM) 175.26 cm (02/03/16 9:26 PM) Height 97.8 DegF (02/08/16 12:10 PM) 98.2 DegF (02/08/16 8:25 AM) 98.2 DegF (02/08/16 4:00 AM) Temperature Oral [96.4-99.1 DegF] 110/70 mmHg (02/08/16 12:10 PM) 110/68 mmHg (02/08/16 8:25 AM) 102/65 mmHg (02/08/16 4:00 AM) Blood Pressure [90-140/60-90 mmHg] 16 BRMIN (02/08/16 12:10 PM) 16 BRMIN (02/08/16 8:25 AM) 18 BRMIN (02/08/16 7:13 AM) Respiratory Rate [14-20 BRMIN] 72 bpm (02/08/16 12:10 PM) 75 bpm (02/08/16 8:25 AM) 82 bpm (02/08/16 4:00 AM) Peripheral Pulse Rate [60-100 bpm] 115.09 kg (02/04/16 6:46 AM) 115.909 kg (02/03/16 9:26 PM) Weight 37.47 m2 (02/04/16 6:46 AM) 37.74 m2 (02/03/16 9:26 PM) Body Mass Index Problem List Condition Effective Dates Status Health Status Informant Rheumatoid Resolved arthritis(Confirmed) Allergies, Adverse Reactions, Alerts Substance Reaction Severity Status NKDA Active Medications acetaminophen 650 mg, 2 tab, Route: PO, Drug form: TAB, Q4H, Dosing Weight 115.909, kg, PRN Pa in Score 1-3, For fever > 100.4. Not to exceed 4 grams in 24 hours, Start date: 02/04/16 6:36:00 CDT, Duration: 30 day, Stop date: 03/05/16 6:35:00 CDT Notes: Do not exceed 4 gm/day. (Same as: Tylenol) Start Date: 02/04/16 Stop Date: 02/04/16 Status: Discontinued azithromycin 500 mg, Route: IVPB, ONCE, Dosing Weight 115.909, kg, Priority: STAT, Start date : 02/04/16 5:15:00 CDT, Stop date: 02/04/16 5:15:00 CDT Start Date: 02/04/16 Stop Date: 02/04/16 Status: Deleted azithromycin + sodium chloride 0.9% INJ 250 mL 500 mg, Route: IVPB, [id number], Dosing Weight 115.909, kg, Priority: Routine, Star t date: 02/04/16 7:00:00 CDT, Duration: 5 day, Stop date: 02/08/16 7:00:00 CDT Notes: (Same As: Zithromax IV) Start Date: 02/04/16 Stop Date: 02/08/16 Status: Completed cefTRIAXone 1 gm, Route: IVPB, Drug form: PDR/INJ, ONCE, Dosing Weight 115.909, kg, Priority : STAT, Start date: 02/04/16 5:15:00 CDT, Stop date: 02/04/16 5:15:00 CDT Start Date: 02/04/16 Stop Date: 02/04/16 Status: Completed cefTRIAXone + sodium chloride 0.9% INJ 100 mL 1 gm, Route: IVPB, [id number], Dosing Weight 115.909, kg, Priority: Routine, Start date: 02/05/16 5:00:00 CDT, Duration: 30 day, Stop date: 03/05/16 5:00:00 CDT Notes: (Same As: Rocephin).Use with 100 mL NS and infuse over 30 min MEDICA TION WASTE Product Size: 1000 mgProduct Wasted: ___ mg Start Date: 02/05/16 Stop Date: 02/04/16 Status: Canceled dextromethorphan-guaiFENesin 10 mg-100 mg/5 mL oral liquid 10 ml, Route: PO, Drug Form: SYRP, Dosing Weight 115.09, kg, Q4H, PRN Cough, Sta rt date: 02/04/16 10:36:00 CDT, Duration: 30 day, Stop date: 03/05/16 10:35:00 C DT Notes: (dextromethorphan-guaifenesin 10-100mg/5ml 10 ml oral SOLN ud) (Same as: Robitussin DM) Start Date: 02/04/16 Stop Date: 02/08/16 Status: Discontinued Dilaudid 1 mg, 1 mL, Route: IV, Drug form: INJ, Q6H, Dosing Weight 115.09, kg, PRN Pain S core 7-10, Start date: 02/06/16 19:08:00 CDT, Duration: 30 day, Stop date: 03/07 19:07:00 CDT Start Date: 02/06/16 Stop Date: 02/08/16 Status: Discontinued enoxaparin 40 mg, 0.4 mL, Route: SUB-Q, Drug form: INJ, [id number], Dosing Weight 115.09, kg, Start date: 02/04/16 11:00:00 CDT, Duration: 30 day, Stop date: 03/04/16 11:00: 00 CDT Notes: (Same as: Lovenox) Start Date: 02/04/16 Stop Date: 02/08/16 Status: Discontinued furosemide 40 mg, Route: PO, Drug form: TAB, ONCE, Dosing Weight 115.09, kg, Start date: 12:51:00 CDT, Stop date: 02/08/16 12:51:00 CDT Start Date: 02/08/16 Stop Date: 02/08/16 Status: Completed Lasix 40 mg, 4 mL, Route: IVP, Drug form: INJ, ONCE, Dosing Weight 115.09, kg, Start d ate: 02/08/16 12:43:00 CDT, Stop date: 02/08/16 12:43:00 CDT Notes: (Same as: Lasix) MEDICATION WASTE Product Size: 40 mgProduct Was kahlil: ___ mg Start Date: 02/08/16 Stop Date: 02/08/16 Status: Discontinued Levaquin 500 mg oral tablet 500 mg=1 tab, PO, Q24H, X 14 day, # 14 tab, 0 Refill(s) Start Date: 02/08/16 Stop Date: 02/22/16 Status: Ordered morphine Sulfate 4 mg, Route: IVP, Drug form: INJ, ONCE, Dosing Weight 115.909, kg, Priority: STA T, Start date: 02/04/16 4:11:00 CDT, Stop date: 02/04/16 4:11:00 CDT Start Date: 02/04/16 Stop Date: 02/04/16 Status: Completed morphine Sulfate 4 mg, Route: IVP, Drug form: INJ, ONCE, Dosing Weight 115.909, kg, Priority: STA T, Start date: 02/04/16 4:01:00 CDT, Stop date: 02/04/16 4:01:00 CDT Start Date: 02/04/16 Stop Date: 02/04/16 Status: Completed morphine Sulfate 2 mg, 1 mL, Route: IVP, Drug form: INJ, Q4H, Dosing Weight 115.09, kg, PRN Pain Score 6-10, Start date: 02/04/16 10:38:00 CDT, Duration: 30 day, Stop date: 02/24 10:37:00 CDT Notes: (Same as:MORPhine Sulfate) Start Date: 02/04/16 Stop Date: 02/08/16 Status: Discontinued pneumococcal 23-valent vaccine 0.5 mL, Route: IM, Drug Form: INJ, Daily, Start date: 02/08/16 12:00:00 CDT, Sto p date: 02/09/16 17:00:00 CDT Notes: (Same as: Pneumovax 23) Refrigerate Start Date: 02/08/16 Stop Date: 02/08/16 Status: Discontinued Robitussin-AC oral syrup 5 ml, Route: PO, Drug Form: LIQ, Dosing Weight 115.09, kg, Q4H, PRN Cough, Start date: 02/04/16 10:36:00 CDT, Duration: 30 day, Stop date: 03/05/16 10:35:00 CDT Notes: (Same As: Robitussin AC) Start Date: 02/04/16 Stop Date: 02/08/16 Status: Discontinued Saline Flush 0.9% 10 mL, Route: IVP, Drug Form: INJ, Dosing Weight 115.909, kg, PRN, PRN Line Flus h, Start date: 02/03/16 22:25:00 CDT, Duration: 30 day, Stop date: 03/04/16 22:2 4:00 CDT Notes: (Same as: BD Posiflush) Start Date: 02/03/16 Stop Date: 02/05/16 Status: Discontinued Tessalon Perles 100 mg, 1 cap, Route: PO, Drug form: CAP, TID, Dosing Weight 115.09, kg, PRN Cou gh, Start date: 02/04/16 10:36:00 CDT, Duration: 30 day, Stop date: 03/05/16 10: 35:00 CDT Notes: (Same As: Tessalon Perles)"Do Not Crush" Start Date: 02/04/16 Stop Date: 02/08/16 Status: Discontinued tramadol 50 mg, PO, Q4-6H, PRN Pain, # 20 tab, 0 Refill(s) Start Date: 02/04/16 Stop Date: 02/08/16 Status: Ordered tramadol 50 mg, 1 tab, Route: PO, Drug form: TAB, Q6H, Dosing Weight 115.09, kg, PRN Pain Score 4-6, Start date: 02/04/16 10:36:00 CDT, Duration: 30 day, Stop date: 02/24 10:35:00 CDT Notes: Not to exceed 400mg/day. (Same As: Ultram) Start Date: 02/04/16 Stop Date: 02/08/16 Status: Discontinued Tylenol 650 mg, 2 tab, Route: PO, Drug form: TAB, Q6H, Dosing Weight 115.09, kg, PRN Jorge n 1-3/Temp > 100.4 F, Start date: 02/04/16 10:36:00 CDT, Duration: 30 day, Stop date: 03/05/16 10:35:00 CDT Notes: Do not exceed 4 gm/day. (Same as: Tylenol) Start Date: 02/04/16 Stop Date: 02/08/16 Status: Discontinued vancomycin + sodium chloride 0.9% INJ 250 mL 1,000 mg, Route: IVPB, [id number], Dosing Weight 115.09, kg, Start date: 02/04/16 2 0:00:00 CDT, Duration: 30 day, Stop date: 03/04/16 20:00:00 CDT Notes: TIME CRITICAL MEDICATION(Same As: Vancocin)Infusion rate< 1000 mg: infuse over 1 [id number] - 1500 mg: infuse over 1.5 [id number] - 2000 mg: infuse over 2 hours> 2001 mg: infuse over 2.5 hours MEDICATION WASTE Product Size: 1000 mgProduct Wasted: ___ mg Start Date: 02/04/16 Stop Date: 02/08/16 Status: Discontinued Zofran 4 mg, Route: IVP, Drug form: INJ, ONCE, Dosing Weight 115.909, kg, Priority: STA T, Start date: 02/04/16 4:11:00 CDT, Stop date: 02/04/16 4:11:00 CDT Start Date: 02/04/16 Stop Date: 02/04/16 Status: Completed Zosyn + sodium chloride 0.9% 100 ml ADV 100 mL 3.375 gm, Route: IVPB, [id number], Dosing Weight 115.09, kg, CrCl >=20 ml/min infuse over 4 hours, Start date: 02/04/16 20:00:00 CDT, Duration: 30 day, Stop date: 03/05/16 12:00:00 CDT Notes: (Same as: Zosyn) Dosing based on Piperacillin component Start Date: 02/04/16 Stop Date: 02/08/16 Status: Discontinued Results ELECTROLYTES 1 2 3 Most recent to oldest [Reference Range]: 136 mEq/L (02/07/16 4:20 AM) 136 mEq/L (02/06/16 5:55 AM) 138 mEq/L (02/05/16 4:49 AM) Sodium Lvl [135-145 mEq/L] 3.9 mEq/L (02/07/16 4:20 AM) 3.9 mEq/L (02/06/16 5:55 AM) 3.9 mEq/L (02/05/16 4:49 AM) Potassium Lvl [3.5-5.1 mEq/L] 101 mEq/L (02/07/16 4:20 AM) 102 mEq/L (02/06/16 5:55 AM) 103 mEq/L (02/05/16 4:49 AM) Chloride Lvl [95-109 mEq/L] 27 mEq/L (02/07/16 4:20 AM) 26 mEq/L (02/06/16 5:55 AM) 26 mEq/L (02/05/16 4:49 AM) CO2 [24-32 mEq/L] 11.9 mEq/L (02/07/16 4:20 AM) 11.9 mEq/L (02/06/16 5:55 AM) 12.9 mEq/L (02/05/16 4:49 AM) AGAP [10.0-20.0 mEq/L] CHEM PANEL 1 2 3 Most recent to oldest [Reference Range]: 0.78 mg/dL (02/07/16 4:20 AM) 0.78 mg/dL (02/06/16 5:55 AM) 0.80 mg/dL (02/05/16 4:49 AM) Creatinine Lvl [0.50-1.40 mg/dL] 106 mL/min/1.73m2 1 *NA* (02/07/16 4:20 AM) 106 mL/min/1.73m2 2 *NA* (02/06/16 5:55 AM) 105 mL/min/1.73m2 3 *NA* (02/05/16 4:49 AM) eGFR 6 mg/dL *LOW* (02/07/16 4:20 AM) 9 mg/dL (02/06/16 5:55 AM) 6 mg/dL *LOW* (02/05/16 4:49 AM) BUN [7-22 mg/dL] 8 (02/07/16 4:20 AM) 12 (02/06/16 5:55 AM) 8 (02/05/16 4:49 AM) B/C Ratio [6-25] 96 mg/dL (02/07/16 4:20 AM) 90 mg/dL (02/06/16 5:55 AM) 102 mg/dL *HI* (02/05/16 6:52 PM) Glucose Lvl [70-99 mg/dL] 7.3 g/dL (02/07/16 4:20 AM) 6.9 g/dL (02/06/16 5:55 AM) 6.3 g/dL *LOW* (02/05/16 6:52 PM) Total Protein [6.4-8.4 g/dL] 2.4 g/dL *LOW* (02/07/16 4:20 AM) 2.4 g/dL *LOW* (02/06/16 5:55 AM) 2.6 g/dL *LOW* (02/05/16 4:49 AM) Albumin Lvl [3.5-5.0 g/dL] 4.9 g/dL *HI* (02/07/16 4:20 AM) 4.5 g/dL *HI* (02/06/16 5:55 AM) 4.5 g/dL *HI* (02/05/16 4:49 AM) Globulin [2.7-4.2 g/dL] 0.5 *LOW* (02/07/16 4:20 AM) 0.5 *LOW* (02/06/16 5:55 AM) 0.6 *LOW* (02/05/16 4:49 AM) A/G Ratio [0.7-1.6] 8.7 mg/dL (02/07/16 4:20 AM) 8.4 mg/dL *LOW* (02/06/16 5:55 AM) 8.2 mg/dL *LOW* (02/05/16 4:49 AM) Calcium Lvl [8.5-10.5 mg/dL] 20 unit/L (02/07/16 4:20 AM) 22 unit/L (02/06/16 5:55 AM) 24 unit/L (02/05/16 4:49 AM) ALT [0-65 unit/L] 18 unit/L (02/07/16 4:20 AM) 21 unit/L (02/06/16 5:55 AM) 23 unit/L (02/05/16 4:49 AM) AST [0-37 unit/L] 50 unit/L (02/07/16 4:20 AM) 52 unit/L (02/06/16 5:55 AM) 56 unit/L (02/05/16 4:49 AM) Alk Phos [39-136 unit/L] 650 unit/L *HI* (02/05/16 6:52 PM) LDH [98-192 unit/L] 0.6 mg/dL (02/07/16 4:20 AM) 0.8 mg/dL (02/06/16 5:55 AM) 0.8 mg/dL (02/05/16 4:49 AM) Bili Total [0.2-1.3 mg/dL] 52 unit/L (02/03/16 10:52 PM) Amylase Lvl [25-115 unit/L] 77 unit/L (02/03/16 10:52 PM) Lipase Lvl [73-393 unit/L] 1.1 mMol/L (02/04/16 7:30 AM) Lactic Acid Lvl [0.5-2.2 mMol/L] 1Result Comment: The eGFR is calculated using [...] 3 Most recent to oldest [Reference Range]: 225 unit/L *HI* (02/03/16 10:52 PM) Total CK [12-191 unit/L] 3.2 ng/mL (02/03/16 10:52 PM) CK MB [0.5-3.6 ng/mL] 1.4 (02/03/16 10:52 PM) CK MB Index [0.0-2.5] <0.02 ng/mL (02/03/16 10:52 PM) Troponin-I [0.00-0.40 ng/mL] 14 pg/mL (02/03/16 10:52 PM) BNP [<=100 pg/mL] URINE AND STOOL 1 2 3 Most recent to oldest [Reference Range]: Slight *ABN* (02/03/16 11:41 PM) UA Turbidity [Clear] Joellen *NA* (02/03/16 11:41 PM) UA Color 5.0 (02/03/16 11:41 PM) UA pH [5.0-8.0] 1.036 *HI* (02/03/16 11:41 PM) UA Spec Grav [<=1.030] Negative mg/dL *NA* (02/03/16 11:41 PM) UA Glucose [Negative mg/dL] Negative (02/03/16 11:41 PM) UA Blood [Negative] Trace mg/dL *ABN* (02/03/16 11:41 PM) UA Ketones [Negative mg/dL] 100 mg/dL *ABN* (02/03/16 11:41 PM) UA Protein [Negative mg/dL] 2.0 mg/dL *HI* (02/03/16 11:41 PM) UA Urobilinogen [0.1-1.0 mg/dL] Moderate *ABN* (02/03/16 11:41 PM) UA Bili [Negative] Negative (02/03/16 11:41 PM) UA Leuk Est [Negative] Negative (02/03/16 11:41 PM) UA Nitrite [Negative] 3 /HPF (02/03/16 11:41 PM) UA WBC [0-5 /HPF] 1 /HPF (02/03/16 11:41 PM) UA RBC [0-2 /HPF] Moderate /LPF *ABN* (02/03/16 11:41 PM) UA Sq Epi [Few /LPF] 10 /LPF *HI* (02/03/16 11:41 PM) UA Hyal Cast [0-2 /LPF] Occasional /HPF *NA* (02/03/16 11:41 PM) UA CaOx Caryn [None Seen /HPF] Many /LPF *ABN* (02/03/16 11:41 PM) UA Mucus [None Seen /LPF] BODY FLUIDS 1 2 3 Most recent to oldest [Reference Range]: <1 mg/dL *NA* (02/05/16 3:30 PM) 4 mg/dL *NA* (02/04/16 11:00 AM) Glucose BF Pleural (02/05/16 3:30 PM) Pleural *NA* (02/04/16 11:00 AM) Gluc BF Type 21 unit/L *NA* (02/05/16 3:30 PM) Amylase BF Pleural *NA* (02/05/16 3:30 PM) Amyl BF Type 1.7 g/dL *NA* (02/05/16 3:30 PM) 1.9 g/dL *NA* (02/04/16 11:00 AM) Albumin BF Pleural *NA* (02/05/16 3:30 PM) Pleural *NA* (02/04/16 11:00 AM) Alb BF Type 16 mg/dL *NA* (02/05/16 3:30 PM) Trig BF Pleural *NA* (02/05/16 3:30 PM) Trig BF Type 7.70 *NA* (02/05/16 3:30 PM) pH BF Pleural (02/05/16 3:30 PM) pH BF Type Pleural *NA* (02/05/16 3:30 PM) Pleural *NA* (02/04/16 11:00 AM) Prot BF Type Pleural (02/05/16 3:30 PM) Pleural (02/04/16 11:00 AM) LDH BF Type 48 unit/L *NA* (02/05/16 3:30 PM) Lipase BF Pleural *NA* (02/05/16 3:30 PM) Lipase BF Type 4.4 g/dL *NA* (02/05/16 3:30 PM) 6.0 g/dL *NA* (02/04/16 11:00 AM) Protein BF 5224 unit/L *NA* (02/05/16 3:30 PM) >6000 unit/L *NA* (02/04/16 11:00 AM) LDH BF Light Yellow (02/05/16 3:30 PM) Brown *ABN* (02/04/16 11:00 AM) Color BF [Colorless] Slight Cloudy (02/05/16 3:30 PM) See Note 1 (02/04/16 11:00 AM) Clarity BF [Clear] Brown *ABN* (02/04/16 11:00 AM) Supernat BF [Colorless] 175 /mm3 *NA* (02/05/16 3:30 PM) 64501 /mm3 *NA* (02/04/16 11:00 AM) RBC BF 1675 /mm3 *NA* (02/05/16 3:30 PM) 98425 /mm3 *NA* (02/04/16 11:00 AM) WBC BF 71 % *NA* (02/05/16 3:30 PM) Segs BF See Note 2 (02/04/16 11:00 AM) Segs BF 18 % *NA* (02/05/16 3:30 PM) Lymph BF See Note 3 (02/04/16 11:00 AM) Lymph BF See Note 4 (02/04/16 11:00 AM) Eos BF 11 % *NA* (02/05/16 3:30 PM) Macrophage BF See Note 5 (02/04/16 11:00 AM) Macrophage BF Occasional (02/05/16 3:30 PM) See Note 6 (02/04/16 11:00 AM) Meso BF Cell diff not performed. No viable cells. All necrotic. per Dr. Klein 02/04/2016 14:14 kyh 7 *NA* (02/04/16 11:00 AM) Comment BF Pleural (02/05/16 3:30 PM) Pleural (02/04/16 11:00 AM) CellCnt BF Type 1Result Comment: Turbid 2Result Comment: Cell diff not performed. No viable cells. All necrotic. per Dr. Klein 02/04/2016 14:14 ky 3Result Comment: Cell diff not performed. No viable cells. All necrotic. per Dr. Klein 02/04/2016 14:14 ky 4Result Comment: Cell diff not performed. No viable cells. All necrotic. per Dr. Klein 02/04/2016 14:14 kyh 5Result Comment: Cell diff not performed. No viable cells. All necrotic. per Dr. Klein 02/04/2016 14:14 ky 6Result Comment: Cell diff not performed. No viable cells. All necrotic. per Dr. Klein 02/04/2016 14:14 ky 7Result Comment: Cell diff not performed. No viable cells. All necrotic. per Dr. Klein 02/04/2016 14:14 kyh IMMUNOLOGY 1 2 3 Most recent to oldest [Reference Range]: Positive *ABN* (02/04/16 7:30 AM) SANDY [Negative] 1:80 *ABN* (02/04/16 7:30 AM) SANDY Titer [Negative] Pattern appears Speckled, Chromosome Positive *NA* (02/04/16 7:30 AM) SANDY Interp >600 IU/mL (02/04/16 7:30 AM) RF Qnt [0-20 IU/mL] Negative (02/04/16 7:30 AM) DNA Ab (DS) [Negative] <0.2 AI (02/04/16 7:30 AM) Sm Ab [<=0.9 AI] 0.5 AI (02/04/16 7:30 AM) GASOLINE TRACTOR OPERATOR Ab [<=0.9 AI] <0.2 AI (02/04/16 7:30 AM) SS-A (Ro) Ab [<=0.9 AI] <0.2 AI (02/04/16 7:30 AM) SS-B (La) Ab [<=0.9 AI] 34.1 mg/L *HI* (02/04/16 7:30 AM) CRP [<=2.9 mg/L] HEMATOLOGY 1 2 3 Most recent to oldest [Reference Range]: 11.8 K/CMM *HI* (02/05/16 4:49 AM) 11.3 K/CMM *HI* (02/03/16 10:52 PM) WBC [3.7-10.4 K/CMM] 4.84 M/CMM (02/05/16 4:49 AM) 4.74 M/CMM (02/03/16 10:52 PM) RBC [4.70-6.10 M/CMM] 14.7 g/dL (02/05/16 4:49 AM) 14.4 g/dL (02/03/16 10:52 PM) Hgb [14.0-18.0 g/dL] 44.6 % (02/05/16 4:49 AM) 43.2 % (02/03/16 10:52 PM) Hct [42.0-54.0 %] 92.0 fL (02/05/16 4:49 AM) 91.0 fL (02/03/16 10:52 PM) MCV [80.0-94.0 fL] 30.4 pg (02/05/16 4:49 AM) 30.2 pg (02/03/16 10:52 PM) MCH [27.0-31.0 pg] 33.0 g/dL (02/05/16 4:49 AM) 33.2 g/dL (02/03/16 10:52 PM) MCHC [32.0-36.0 g/dL] 13.8 % (02/05/16 4:49 AM) 13.6 % (02/03/16 10:52 PM) RDW [11.5-14.5 %] 238 K/CMM (02/05/16 4:49 AM) 255 K/CMM (02/03/16 10:52 PM) Platelet [133-450 K/CMM] 8.3 fL (02/05/16 4:49 AM) 8.4 fL (02/03/16 10:52 PM) MPV [7.4-10.4 fL] 71.5 % (02/05/16 4:49 AM) 67.6 % (02/03/16 10:52 PM) Segs [45.0-75.0 %] 10.9 % *LOW* (02/05/16 4:49 AM) 14.0 % *LOW* (02/03/16 10:52 PM) Lymphocytes [20.0-40.0 %] 12.7 % *HI* (02/05/16 4:49 AM) 10.5 % (02/03/16 10:52 PM) Monocytes [2.0-12.0 %] 3.7 % (02/05/16 4:49 AM) 6.7 % *HI* (02/03/16 10:52 PM) Eosinophils [0.0-4.0 %] 1.2 % *HI* (02/05/16 4:49 AM) 1.2 % *HI* (02/03/16 10:52 PM) Basophils [0.0-1.0 %] 8.5 K/CMM *HI* (02/05/16 4:49 AM) 7.6 K/CMM (02/03/16 10:52 PM) Segs-Bands # [1.5-8.1 K/CMM] 1.3 K/CMM (02/05/16 4:49 AM) 1.6 K/CMM (02/03/16 10:52 PM) Lymphocytes # [1.0-5.5 K/CMM] 1.5 K/CMM *HI* (02/05/16 4:49 AM) 1.2 K/CMM *HI* (02/03/16 10:52 PM) Monocytes # [0.0-0.8 K/CMM] 0.4 K/CMM (02/05/16 4:49 AM) 0.8 K/CMM *HI* (02/03/16 10:52 PM) Eosinophils # [0.0-0.5 K/CMM] 0.1 K/CMM (02/05/16 4:49 AM) 0.1 K/CMM (02/03/16 10:52 PM) Basophils # [0.0-0.2 K/CMM] 72 mm/hr *HI* (02/04/16 11:01 AM) Sed Rate [0-15 mm/hr] 13.5 seconds (02/03/16 10:52 PM) PT [12.0-14.7 seconds] 1.00 (02/03/16 10:52 PM) INR [0.85-1.17] 42.1 seconds *HI* (02/03/16 10:52 PM) PTT [22.9-35.8 seconds] Immunizations Given and Recorded Vaccine Date Status Refusal Reason pneumococcal 23-valent vaccine 02/08/16 Given Procedures No data available for this section Social History Social History Type Response Smoking Status Never smoker; Exposure to Tobacco Smoke None; Cigarette Smoking Last 365 Days No; Reg Smoking Cessation Counseling Yes Assessment and Plan Extracted from: Title: Clinical Document Author: Mike Enrique DO Date: 02/08/16 Progress Daily [facility] Completed: Jan, 10:54 by Mike Enrique DO RM: 351 - 1D, SE [id number] (: 1965) M Attending: Mike Enrique: Service: Internal Medicine Reason for Admission: PLEURAL EFFSUION, PNEUMONIA Working DRG: Connective tissue disorders w CC Code status: Full Code [Ordered]Current diet: Isolation: None Documented Allergies: NKDA SUBJECTIVE Patient seen and examined. Events noted overnight. Labs/Images reviewed feeling better, SOB resolved OBJECTIVE Labs (Last four charted values) WBC H 11.8(FEB 04)H 11.3(FEB 02) Hgb 14.7(FEB 04)14.4(FEB 02) Hct 44.6(FEB 04)43.2(FEB 02) Plt 238(FEB 04)255(FEB 02) Na 136(FEB 06)136(FEB 05)138(FEB 04)139(FEB 02) K 3.9(FEB 06)3.9(FEB 05)3.9(FEB 04)L 3.4(FEB 02) CO2 27(FEB 06)26(FEB 05)26(FEB 04)31(FEB 02) Cl 101(FEB 06)102(FEB 05)103(FEB 04)104(FEB 02) Cr 0.78(FEB 06)0.78(FEB 05)0.80(FEB 04)1.13(FEB 02) BUN L 6(FEB 06)9(FEB 05)L 6(FEB 04)7(FEB 02) Glucose Random 96(FEB 06)90(FEB 05)H 102(FEB 04)87(FEB 04) Ca 8.7(FEB 06)L 8.4(FEB 05)L 8.2(FEB 04)L 8.4(FEB 02) PT 13.5(FEB 02) INR 1.00(FEB 02) PTT H 42.1(FEB 02) Troponin <0.02(FEB 02) CK MB 3.2(FEB 02) Total CK H 225(FEB 02) ASSESSMENT & EXAM Gen: NAD, Alert, Awake HEENT: NC/AT, PERRLA, oral area clear and moist Neck: No LAD, No JVD, trachea midline Chest: CTAB, no c/w/r CV: RRR, S1, S2 GI: +BS, S, NT, ND, No organomegaly Ext: no c/c/e Neuro: AOx3, no gross deficits noted Skin: No notable rashes PLAN & TREATMENT breathing better apprecaite pulm and thorasic surgeon on theri recs PO abx for 14 days pt to stop tobacco f/u with rheum for further eval DIAGNOSES & PROBLEMS 1. Bilateral pleural effusion secondary to rheumatoid arthritis. 2. Rheumatoid arthritis. 3. Shortness of breath. 4. Hypokalemia. 5. Tobacco abuse Ready for Discharge (Yes/No)? Pascual still necessary (Yes/No): Line still necessary (Yes/No): (no lab data in past 24 hours) VitalsTmp(F)[id number] 02/07 08:[id number]--- 02/07 07:13 1897--- 02/07 04:0098.681709/130086--- 02/07 00:0098.409131/[id number]--- 02/06 21:42 2093 21% 24 Hr Tmax: 98.6F (37.00c) at 02/06 15:37Vital Signs are the last 5 in the past 48 hours. DateWt(kg)Wt(lb)Ht(cm)Ht(in)Method 253..26 69.00Measured 02/02 (initial)115.91 255.00Estimated . 69.00Stated I&ORecordInOutBal 1524hr Tot 129 200 -71 1424hr Tot 779 1125 -346 Medications (10) Active Scheduled Meds (3): 02/04/16 enoxaparin 40 mg SUB-Q [id number] 02/04/16 piperacillin-tazobactam + sodium chloride 0.9% 100 ml ADV 100 mL (Zosyn + sodium chloride 0.9% 100 ml ADV 100 mL) 3.375 gm IVPB [id number] 25 ml/hr 02/04/16 vancomycin + sodium chloride 0.9% INJ 250 mL 1,000 mg IVPB [id number] 250 ml/hr Unscheduled Meds: None PRN Meds [...]
--- OUTSIDE RECORDS SUMMARY | 2018-12-31 12:09 | XMS REPORT | CCD ---
Author Author Auto Generated Organization [facility] Address Unknown Phone Unavailable Care Team Providers Care Route Vending Machine Servicer Name Role Phone PCP, None CP Unavailable Marissa Webster CP Unavailable Jhony Zhao CP Stevo Rivero CP Unavailable ChartServer, Login CP Unavailable Zuleika Darby CP [phone] Marco Zambrano CP Unavailable Tammie Erazo CP Unavailable Kleber Lew CP [phone] Leodan Martinez CP Unavailable Ty Yung CP Unavailable Stevo Perkins CP Unavailable Farhan Sanches CP Allergies, Adverse Reactions, Alerts Substance Reaction Status NKDA ?? Active Medications Medication Instructions Start Date End Date Status azithromycin 1,000 mg, 1 pkt, Route: PO, Drug 05/15/2011 05/15/2011 Completed form: PCKT, ONCE, Priority: STAT, Start date: 05/15/11 16:57:00, Stop date: 05/15/11 16:57:00 ceftriaxone 250 mg, Route: IM, Drug form: 05/15/2011 05/15/2011 Completed PDR/INJ, ONCE, Priority: STAT, Start date: 05/15/11 16:57:00, Stop date: 05/15/11 16:57:00 METRONIDazole 500 mg 500 mg, 1 tab, PO, Q12H, 14 tab, 05/15/2011 05/22/2011 Ordered oral tablet Substitution Allowed, TAB Vital Signs Most recent to oldest [Reference Range]: 1 2 Height 175.26 cm (05/15/2011 15:44:00) ? Temperature Oral [96.4-99.1 DegF] 97.9 DegF (05/15/2011 18:37:00) ?? 98.4 DegF (05/15/2011 15:44:00) ?? Systolic Blood Pressure [90-140 mmHg] 155 mmHg *HI* (05/15/2011 18:37:00) ?? 140 mmHg (05/15/2011 15:44:00) ?? Diastolic Blood Pressure [60-90 mmHg] 97 mmHg *HI* (05/15/2011 18:37:00) ?? 83 mmHg (05/15/2011 15:44:00) ?? Respiratory Rate [14-20 BRMIN] 18 BRMIN (05/15/2011 18:37:00) ?? 18 BRMIN (05/15/2011 15:44:00) ?? Peripheral Pulse Rate [60-100 bpm] 85 bpm (05/15/2011 18:37:00) ?? 89 bpm (05/15/2011 15:44:00) ?? Weight 118.182 kg (05/15/2011 15:44:00) ? Results URINALYSIS Most recent to oldest [Reference Range]: 1 UA Turbidity [>Clear] Clear (05/15/2011 16:35:00) ?? UA Color [>Yellow] Yellow *NA* (05/15/2011 16:35:00) ?? UA pH [5.0-8.0] 6.0 (05/15/2011 16:35:00) ?? UA Spec Grav [<<=1.030] 1.025 (05/15/2011 16:35:00) ?? UA Glucose [>Negative] Negative (05/15/2011 16:35:00) ?? UA Blood [>Negative] Trace *ABN* (05/15/2011 16:35:00) ?? UA Ketones [>Negative] Negative *NA* (05/15/2011 16:35:00) ?? UA Protein [>Negative] Negative (05/15/2011 16:35:00) ?? UA Urobilinogen [0.1-1.0 EU/dL] 0.2 EU/dL (05/15/2011 16:35:00) ?? UA Bili [>Negative] Negative *NA* (05/15/2011 16:35:00) ?? UA Leuk Est [>Negative] Small *ABN* (05/15/2011 16:35:00) ?? UA Nitrite [>Negative] Negative (05/15/2011 16:35:00) ?? UA WBC [>None Seen /HPF] 6-10 /HPF *ABN* (05/15/2011 16:35:00) ?? UA RBC [>0-2 /HPF] 0-2 /HPF (05/15/2011 16:35:00) ?? UA Bacteria [>None Seen /HPF] Moderate /HPF (05/15/2011 16:35:00) ?? UA Sq Epi [>Few /LPF] Few /LPF (05/15/2011 16:35:00) ?? UA Trichomonas [>None Seen /HPF] Moderate /HPF *ABN* (05/15/2011 16:35:00) ?? Micro? Performed (05/15/2011 16:35:00) ??
--- OUTSIDE RECORDS SUMMARY | 2018-12-31 12:09 | XMS REPORT | Summary of Care ---
Author Author [facility] Organization [facility] Address Unknown Phone Unavailable Encounter HQ Luigintr_duane(FIN) [id number] Date(s): 03/08/16 - 03/08/16 [facility] [address] [place] [address]- [phone] Discharge Disposition: Home or Self Care Attending Physician: Nadia Arellano MD Referring Physician: Nadia Arellano MD Vital Signs No data available for this section Problem List Condition Effective Dates Status Health Status Informant Rheumatoid Resolved arthritis(Confirmed) Allergies, Adverse Reactions, Alerts Substance Reaction Severity Status NKDA Active Medications No data available for this section Results BODY FLUIDS Most recent to 1 oldest [Reference Range]: Glucose BF <1 mg/dL *NA* (03/08/16 1:05 PM) Gluc BF Type Pleural (03/08/16 1:05 PM) Albumin BF 1.8 g/dL *NA* (03/08/16 1:05 PM) Alb BF Type Pleural *NA* (03/08/16 1:05 PM) LDH BF Type Pleural (03/08/16 1:05 PM) LDH BF > 6000 unit/L *NA* (03/08/16 1:05 PM) Immunizations Given and Recorded Vaccine Date Status Refusal Reason pneumococcal 23-valent vaccine 02/08/16 Given Procedures No data available for this section Social History Social History Type Response Smoking Status Never smoker; Exposure to Tobacco Smoke None; Cigarette Smoking Last 365 Days No; Reg Smoking Cessation Counseling Yes Assessment and Plan No data available for this section
--- OUTSIDE RECORDS SUMMARY | 2018-12-31 12:09 | XMS REPORT | CCD ---
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
--- OUTSIDE RECORDS SUMMARY | 2018-12-31 12:10 | XMS REPORT | Summary of Care ---
Author Author [facility] [place] Organization [facility] [place] Address Unknown Phone Unavailable Encounter HQ Encntr_aliayana(FIN) [phone] Date(s): 03/03/16 - 03/03/16 [facility] [place] [address] [place] [address] [phone] Discharge Disposition: Home or Self Care Attending Physician: Nadia Amadna MD Vital Signs No data available for [...]
--- OUTSIDE RECORDS SUMMARY | 2018-12-31 12:10 | XMS REPORT | Summary of Care ---
Author Author [facility] Organization [facility] Address Unknown Phone Unavailable Encounter KHADIJAH Alanis(AL) [id number] Date(s): 04/11/16 - 04/11/16 [facility] [address] [place] [address]- [phone] Discharge Diagnosis: Pleurisy Discharge Diagnosis: Pleural effusion Discharge Disposition: Home or Self Care Attending Physician: Susannah Woods MD Vital Signs Most recent to 1 2 oldest [Reference Range]: Height 175.26 cm (04/11/16 11:53 AM) Temperature Oral 98.1 DegF 97.7 DegF [96.4-99.1 DegF] (04/11/16 3:00 PM) (04/11/16 11:53 AM) Blood Pressure 124/74 mmHg 133/82 mmHg [90-140/60-90 mmHg] (04/11/16 3:00 PM) (04/11/16 11:53 AM) Respiratory Rate 18 BRMIN 20 BRMIN [14-20 BRMIN] (04/11/16 3:00 PM) (04/11/16 11:53 AM) Peripheral Pulse 89 bpm 96 bpm Rate [60-100 bpm] (04/11/16 3:00 PM) (04/11/16 11:53 AM) Weight 115.455 kg (04/11/16 11:53 AM) Body Mass Index 37.59 m2 (04/11/16 11:53 AM) Problem List Condition Effective Dates Status Health Status Informant Pleural Resolved effusion(Confirmed) Rheumatoid Resolved arthritis(Confirmed) Allergies, Adverse Reactions, Alerts Substance Reaction Severity Status NKDA Active Medications methylPREDNISolone SODium SUCCinate 125 mg, 2 mL, Route: IVP, Drug form: INJ, ONCE, Dosing Weight 115.455, kg, Prior ity: STAT, Start date: 04/11/16 14:14:00 CDT, Stop date: 04/11/16 14:14:00 CDT Notes: (Same as:Solu-MEDROL, A-Methapred) Start Date: 04/11/16 Stop Date: 04/11/16 Status: Completed predniSONE 10 mg oral tablet See Special Instructions, PO, Daily, 16 day regimen: 1st week - 40 mg (4 tabs) d aily x 4 days, 2nd week - 30 mg (3 tabs) daily x 4 days, 3rd week - 20 mg (2 tab s) daily x 30 days, X 30 day, # 90 tab, 0 Refill(s) Start Date: 04/11/16 Stop Date: 05/11/16 Status: Ordered Saline Flush 0.9% 10 mL, Route: IVP, Drug Form: INJ, Dosing Weight 115.455, kg, PRN, PRN Line Flus h, Start date: 04/11/16 12:12:00 CDT, Duration: 30 day, Stop date: 05/11/16 11:1 1:00 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: Same as: BD Posiflush Sterile Start Date: 04/11/16 Stop Date: 04/11/16 Status: Discontinued tramadol 50 mg oral tablet 50 mg=1 tab, PO, BID, X 15 day, # 30 tab, 0 Refill(s) Start Date: 04/11/16 Stop Date: 04/26/16 Status: Ordered Results ELECTROLYTES Most recent to 1 oldest [Reference Range]: Sodium Lvl [135-145 137 mEq/L mEq/L] (04/11/16 12:54 PM) Potassium Lvl 3.6 mEq/L [3.5-5.1 mEq/L] (04/11/16 12:54 PM) Chloride Lvl [95-109 102 mEq/L mEq/L] (04/11/16 12:54 PM) CO2 [24-32 mEq/L] 29 mEq/L (04/11/16 12:54 PM) AGAP [10.0-20.0 9.6 mEq/L mEq/L] *LOW* (04/11/16 12:54 PM) CHEM PANEL Most recent to 1 oldest [Reference Range]: Creatinine Lvl 0.89 mg/dL [0.50-1.40 mg/dL] (04/11/16 12:54 PM) eGFR 100 mL/min/1.73m2 1 *NA* (04/11/16 12:54 PM) BUN [7-22 mg/dL] 8 mg/dL (04/11/16 12:54 PM) B/C Ratio [6-25] 9 (04/11/16 12:54 PM) Glucose Lvl [70-99 116 mg/dL mg/dL] *HI* (04/11/16 12:54 PM) Total Protein 7.0 g/dL [6.4-8.4 g/dL] (04/11/16 12:54 PM) Albumin Lvl [3.5-5.0 2.8 g/dL g/dL] *LOW* (04/11/16 12:54 PM) Globulin [2.7-4.2 4.2 g/dL g/dL] (04/11/16 12:54 PM) A/G Ratio [0.7-1.6] 0.7 (04/11/16 12:54 PM) Calcium Lvl 8.4 mg/dL [8.5-10.5 mg/dL] *LOW* (04/11/16 12:54 PM) ALT [0-65 unit/L] 16 unit/L (04/11/16 12:54 PM) AST [0-37 unit/L] 14 unit/L (04/11/16 12:54 PM) Alk Phos [39-136 79 unit/L unit/L] (04/11/16 12:54 PM) Bili Total [0.2-1.3 0.4 mg/dL mg/dL] (04/11/16 12:54 PM) 1Result Comment: The eGFR is calculated [...] 1 oldest [Reference Range]: Total CK [12-191 69 unit/L unit/L] (04/11/16 12:54 PM) CK MB [0.5-3.6 2.2 ng/mL ng/mL] (04/11/16 12:54 PM) CK MB Index 3.2 [0.0-2.5] *HI* (04/11/16 12:54 PM) Troponin-I <0.02 ng/mL [0.00-0.40 ng/mL] (04/11/16 12:54 PM) BNP [<=100 pg/mL] 18 pg/mL (04/11/16 12:54 PM) HEMATOLOGY Most recent to 1 oldest [Reference Range]: WBC [3.7-10.4 K/CMM] 15.5 K/CMM *HI* (04/11/16 12:54 PM) RBC [4.70-6.10 5.12 M/CMM M/CMM] (04/11/16 12:54 PM) Hgb [14.0-18.0 g/dL] 14.9 g/dL (04/11/16 12:54 PM) Hct [42.0-54.0 %] 45.9 % (04/11/16 12:54 PM) MCV [80.0-94.0 fL] 89.8 fL (04/11/16 12:54 PM) MCH [27.0-31.0 pg] 29.1 pg (04/11/16 12:54 PM) MCHC [32.0-36.0 32.4 g/dL g/dL] (04/11/16 12:54 PM) RDW [11.5-14.5 %] 14.4 % (04/11/16 12:54 PM) Platelet [133-450 214 K/CMM K/CMM] (04/11/16 12:54 PM) MPV [7.4-10.4 fL] 7.7 fL (04/11/16 12:54 PM) Segs [45.0-75.0 %] 72.8 % (04/11/16 12:54 PM) Lymphocytes 14.5 % [20.0-40.0 %] *LOW* (04/11/16 12:54 PM) Monocytes [2.0-12.0 10.4 % %] (04/11/16 12:54 PM) Eosinophils [0.0-4.0 1.0 % %] (04/11/16 12:54 PM) Basophils [0.0-1.0 1.3 % %] *HI* (04/11/16 12:54 PM) Segs-Bands # 11.3 K/CMM [1.5-8.1 K/CMM] *HI* (04/11/16 12:54 PM) Lymphocytes # 2.2 K/CMM [1.0-5.5 K/CMM] (04/11/16 12:54 PM) Monocytes # [0.0-0.8 1.6 K/CMM K/CMM] *HI* (04/11/16 12:54 PM) Eosinophils # 0.2 K/CMM [0.0-0.5 K/CMM] (04/11/16 12:54 PM) Basophils # [0.0-0.2 0.2 K/CMM K/CMM] (04/11/16 12:54 PM) RBC Morph Normal (04/11/16 12:54 PM) Plt Morph Normal (04/11/16 12:54 PM) Immunizations Given and Recorded Vaccine Date Status Refusal Reason pneumococcal 23-valent vaccine 02/08/16 Given Procedures No data available for this section Social History Social History Type Response Smoking Status Current every day smoker; Type: Cigarettes; Ready to change: No; Concerns about tobacco use in household: Yes; Lives with someone who smokes; Cigarette Smoking Last 365 Days Yes; Reg Smoking Cessation Counseling No Assessment and Plan No data available for this section
--- OUTSIDE RECORDS SUMMARY | 2018-12-31 12:10 | XMS REPORT | Summary of Care ---
Author Author [facility] Organization [facility] Address Unknown Phone Unavailable Encounter KHADIJAH Alanis([place]) [id number] Date(s): 03/20/16 - 03/21/16 [facility] [address] [place] [address]- Discharge Disposition: Home or Self Care Attending Physician: Maxx Donis MD Admitting Physician: Maxx Donis MD Vital Signs 1 2 3 Most recent to oldest [Reference Range]: 175.26 cm (03/20/16 6:04 PM) 175.26 cm (03/20/16 12:58 PM) Height 98.0 DegF (03/21/16 11:00 AM) 97.7 DegF (03/21/16 7:00 AM) 97.6 DegF (03/21/16 3:33 AM) Temperature Oral [96.4-99.1 DegF] 103/65 mmHg 1 (03/21/16 1:49 PM) 99/66 mmHg (03/21/16 11:00 AM) 120/74 mmHg (03/21/16 7:00 AM) Blood Pressure [90-140/60-90 mmHg] 18 BRMIN (03/21/16 11:00 AM) 18 BRMIN (03/21/16 7:00 AM) 16 BRMIN (03/21/16 6:59 AM) Respiratory Rate [14-20 BRMIN] 82 bpm (03/20/16 4:49 PM) 95 bpm (03/20/16 12:58 PM) Peripheral Pulse Rate [60-100 bpm] 111.477 kg (03/21/16 2:23 PM) 112.727 kg (03/20/16 6:04 PM) 111.818 kg (03/20/16 12:58 PM) Weight 36.7 m2 (03/20/16 6:04 PM) 36.4 m2 (03/20/16 12:58 PM) Body Mass Index 1Result Comment: TAKEN BY OTHER Problem List Condition Effective Dates Status Health Status Informant Pleural Resolved effusion(Confirmed) Rheumatoid Resolved arthritis(Confirmed) Allergies, Adverse Reactions, Alerts Substance Reaction Severity Status NKDA Active Medications acetaminophen-hydrocodone 325 mg-5 mg oral tablet 1 tab, Route: PO, Dosing Weight 111.818, kg, ONCE, STAT, Start date: 03/20/16 13 :34:00 CDT, Stop date: 03/20/16 13:34:00 CDT Start Date: 03/20/16 Stop Date: 03/20/16 Status: Completed acetaminophen-hydrocodone 325 mg-5 mg oral tablet 2 tab, Route: PO, Drug Form: TAB, Dosing Weight 112.727, kg, Q4H, PRN Pain Score 7-10, Start date: 03/20/16 19:56:00 CDT, Duration: 30 day, Stop date: 04/19/16 19:55:00 CDT Notes: (Same as: Grampian 325/5) Do not exceed 4gm/day of acetaminophen. Start Date: 03/20/16 Stop Date: 03/21/16 Status: Discontinued Dextrose 50% Syringe 12.5 gm, 25 mL, Route: IVP, Drug Form: INJ, Dosing Weight 111.818, kg, PRN, PRN Blood Glucose Results, Start date: 03/20/16 17:12:00 CDT, Duration: 30 day, Stop date: 04/19/16 17:11:00 CDT Start Date: 03/20/16 Stop Date: 03/21/16 Status: Discontinued Dextrose 50% Syringe 25 gm, 50 mL, Route: IVP, Drug Form: INJ, Dosing Weight 111.818, kg, PRN, PRN Bl ood Glucose Results, Start date: 03/20/16 17:12:00 CDT, Duration: 30 day, Stop d ate: 04/19/16 17:11:00 CDT Start Date: 03/20/16 Stop Date: 03/21/16 Status: Discontinued enoxaparin 40 mg, 0.4 mL, Route: SUB-Q, Drug form: INJ, [id number], Dosing Weight 111.818, kg , Start date: 03/20/16 18:00:00 CDT, Duration: 30 day, Stop date: 04/18/16 18:00 :00 CDT Notes: (Same as: Lovenox) Start Date: 03/20/16 Stop Date: 03/21/16 Status: Discontinued glucagon 1 mg, Route: IM, Drug form: PDR/INJ, PRN, Dosing Weight 111.818, kg, PRN Blood G lucose Results, Start date: 03/20/16 17:12:00 CDT, Duration: 30 day, Stop date: 04/19/16 17:11:00 CDT Start Date: 03/20/16 Stop Date: 03/21/16 Status: Discontinued insulin aspart 3 unit, 0.03 mL, Route: SUB-Q, Drug form: SOLN, Bedtime, Dosing Weight 111.818, kg, PRN Blood Glucose Results, Start date: 03/20/16 17:12:00 CDT, Duration: 30 d ay, Stop date: 04/19/16 17:11:00 CDT Notes: Roll in palms of hands gently; Do not shake vigorously. (Same as: NovoCHADWICK Burgos)"single patient use only"WASTE: F/P - Black; E - Municipal Trash Bin Stable f or 28 days at room temperature.Expires in days from Date Start Date: 03/20/16 Stop Date: 03/21/16 Status: Discontinued insulin aspart 4 unit, 0.04 mL, Route: SUB-Q, Drug form: SOLN, Bedtime, Dosing Weight 111.818, kg, PRN Blood Glucose Results, Start date: 03/20/16 17:12:00 CDT, Duration: 30 d ay, Stop date: 04/19/16 17:11:00 CDT Notes: Roll in palms of hands gently; Do not shake vigorously. (Same as: NovoLO G)"single patient use only"WASTE: F/P - Black; E - Municipal Trash Bin Stable f or 28 days at room temperature.Expires in days from Date Start Date: 03/20/16 Stop Date: 03/21/16 Status: Discontinued insulin aspart 2 unit, 0.02 mL, Route: SUB-Q, Drug form: SOLN, Bedtime, Dosing Weight 111.818, kg, PRN Blood Glucose Results, Start date: 03/20/16 17:12:00 CDT, Duration: 30 d ay, Stop date: 04/19/16 17:11:00 CDT Notes: Roll in palms of hands gently; Do not shake vigorously. (Same as: Francis Burgos)"single patient use only"WASTE: F/P - Black; E - Municipal Trash Bin Stable f or 28 days at room temperature.Expires in days from Date Start Date: 03/20/16 Stop Date: 03/21/16 Status: Discontinued insulin aspart 1 unit, 0.01 mL, Route: SUB-Q, Drug form: SOLN, Bedtime, Dosing Weight 111.818, kg, PRN Blood Glucose Results, Start date: 03/20/16 17:12:00 CDT, Duration: 30 d ay, Stop date: 04/19/16 17:11:00 CDT Notes: Roll in palms of hands gently; Do not shake vigorously. (Same as: Francis Burgos)"single patient use only"WASTE: F/P - Black; E - Municipal Trash Bin Stable f or 28 days at room temperature.Expires in days from Date Start Date: 03/20/16 Stop Date: 03/21/16 Status: Discontinued insulin aspart 4 unit, 0.04 mL, Route: SUB-Q, Drug form: SOLN, TID-Before Meals, Dosing Weight 111.818, kg, PRN Blood Glucose Results, Start date: 03/20/16 17:12:00 CDT, Durat ion: 30 day, Stop date: 04/19/16 17:11:00 CDT Notes: Roll in palms of hands gently; Do not shake vigorously. (Same as: Francis Burgos)"single patient use only"WASTE: F/P - Black; E - Municipal Trash Bin Stable f or 28 days at room temperature.Expires in days from Date Start Date: 03/20/16 Stop Date: 03/21/16 Status: Discontinued insulin aspart 5 unit, 0.05 mL, Route: SUB-Q, Drug form: SOLN, TID-Before Meals, Dosing Weight 111.818, kg, PRN Blood Glucose Results, Start date: 03/20/16 17:12:00 CDT, Durat ion: 30 day, Stop date: 04/19/16 17:11:00 CDT Notes: Roll in palms of hands gently; Do not shake vigorously. (Same as: Francis Burgos)"single patient use only"WASTE: F/P - Black; E - Municipal Trash Bin Stable f or 28 days at room temperature.Expires in days from Date Start Date: 03/20/16 Stop Date: 03/21/16 Status: Discontinued insulin aspart 1 unit, 0.01 mL, Route: SUB-Q, Drug form: SOLN, TID-Before Meals, Dosing Weight 111.818, kg, PRN Blood Glucose Results, Start date: 03/20/16 17:12:00 CDT, Durat ion: 30 day, Stop date: 04/19/16 17:11:00 CDT Notes: Roll in palms of hands gently; Do not shake vigorously. (Same as: Francis Burgos)"single patient use only"WASTE: F/P - Black; E - Municipal Trash Bin Stable f or 28 days at room temperature.Expires in days from Date Start Date: 03/20/16 Stop Date: 03/21/16 Status: Discontinued insulin aspart 3 unit, 0.03 mL, Route: SUB-Q, Drug form: SOLN, TID-Before Meals, Dosing Weight 111.818, kg, PRN Blood Glucose Results, Start date: 03/20/16 17:12:00 CDT, Durat ion: 30 day, Stop date: 04/19/16 17:11:00 CDT Notes: Roll in palms of hands gently; Do not shake vigorously. (Same as: Francis Burgos)"single patient use only"WASTE: F/P - Black; E - Municipal Trash Bin Stable f or 28 days at room temperature.Expires in days from Date Start Date: 03/20/16 Stop Date: 03/21/16 Status: Discontinued insulin aspart 2 unit, 0.02 mL, Route: SUB-Q, Drug form: SOLN, TID-Before Meals, Dosing Weight 111.818, kg, PRN Blood Glucose Results, Start date: 03/20/16 17:12:00 CDT, Durat ion: 30 day, Stop date: 04/19/16 17:11:00 CDT Notes: Roll in palms of hands gently; Do not shake vigorously. (Same as: Francis Burgos)"single patient use only"WASTE: F/P - Black; E - Municipal Trash Bin Stable f or 28 days at room temperature.Expires in days from Date Start Date: 03/20/16 Stop Date: 03/21/16 Status: Discontinued Levaquin 500 mg oral tablet 500 mg=1 tab, PO, Q24H, X 7 day, # 7 tab, 0 Refill(s) Start Date: 03/21/16 Stop Date: 03/28/16 Status: Ordered morphine Sulfate 2 mg, 1 mL, Route: IVP, Drug form: INJ, Q4H, Dosing Weight 112.727, kg, PRN Pain Score 7-10, Start date: 03/20/16 19:56:00 CDT, Duration: 30 day, Stop date: 19:55:00 CDT Notes: (Same as:MORPhine Sulfate) Start Date: 03/20/16 Stop Date: 03/21/16 Status: Discontinued nicotine 14 mg/24 hr transdermal film, extended release =1 patch, TOP, Daily, X 30 day, # 30 patch, 0 Refill(s) Start Date: 03/21/16 Stop Date: 04/20/16 Status: Ordered predniSONE 10 mg oral tablet See Special Instructions, PO, Daily, 16 day regimen: 1st week - 40 mg (4 tabs) d aily x 4 days, 2nd week - 30 mg (3 tabs) daily x 4 days, 3rd week - 20 mg (2 tab s) daily x 4days, 4th week - 10 mg (1 tab) daily x 4 days then stop. X16 days, #42 Tabs, X... Start Date: 03/21/16 Stop Date: 04/06/16 Status: Ordered Saline Flush 0.9% 10 mL, Route: IVP, Drug Form: INJ, Dosing Weight 111.818, kg, PRN, PRN Line Flus h, Start date: 03/20/16 13:34:00 CDT, Duration: 30 day, Stop date: 04/19/16 13:3 3:00 CDT Notes: (Same as: BD Posiflush) Start Date: 03/20/16 Stop Date: 03/20/16 Status: Discontinued Saline Flush 0.9% 10 ml, Route: IVP, Drug Form: INJ, Dosing Weight 112.727, kg, PRN, PRN Line Flus h, Start date: 03/20/16 19:56:00 CDT, Duration: 30 day, Stop date: 04/19/16 19:5 5:00 CDT Notes: (Same as: BD Posiflush) Start Date: 03/20/16 Stop Date: 03/21/16 Status: Discontinued sodium chloride 0.9% 1000 ml INJ 1,000 mL 1,000 mL, Rate: 125 ml/hr, Infuse over: 8 hr, Route: IV, Dosing Weight 112.727 k g, Total Volume: 1,000, Start date: 03/20/16 19:56:00 CDT, Duration: 30 day, Sto p date: 04/19/16 19:55:00 CDT Start Date: 03/20/16 Stop Date: 03/21/16 Status: Discontinued Solu-MEDROL 20 mg, 0.5 mL, Route: IVP, Drug form: INJ, Q12H, Dosing Weight 111.818, kg, Star t date: 03/20/16 21:00:00 CDT, Duration: 30 day, Stop date: 04/19/16 9:00:00 CDT Notes: (Same as:Solu-MEDROL, A-Methapred) Start Date: 03/20/16 Stop Date: 03/21/16 Status: Discontinued Tessalon Perles 100 mg, Route: PO, ONCE, Dosing Weight 111.818, kg, Start date: 03/20/16 13:37:0 0 CDT, Stop date: 03/20/16 13:37:00 CDT Start Date: 03/20/16 Stop Date: 03/20/16 Status: Completed tramadol 50 mg, 1 tab, Route: PO, Drug form: TAB, Q6H, Dosing Weight 111.818, kg, PRN Jorge n Score 1-5, Start date: 03/20/16 17:14:00 CDT, Duration: 30 day, Stop date: 17:13:00 CDT Notes: Not to exceed 400mg/day. (Same As: Ultram) Start Date: 03/20/16 Stop Date: 03/21/16 Status: Discontinued vancomycin 1,000 mg, Route: IVPB, Drug form: INJ, ONCE, Dosing Weight 111.818, kg, Priority : STAT, Start date: 03/20/16 15:43:00 CDT, Stop date: 03/20/16 15:43:00 CDT Start Date: 03/20/16 Stop Date: 03/20/16 Status: Completed Zosyn 3.375 gm, Route: IVPB, ONCE, Dosing Weight 111.818, kg, Priority: STAT, Start da te: 03/20/16 15:43:00 CDT, Stop date: 03/20/16 15:43:00 CDT Start Date: 03/20/16 Stop Date: 03/20/16 Status: Completed Zosyn + sodium chloride 0.9% 100 ml ADV 100 mL 3.375 gm, Route: IVPB, ABXQ8H, Dosing Weight 111.818, kg, CrCl >=20 ml/min infuse over 4 hours, Start date: 03/21/16 0:00:00 CDT, Duration: 30 day, Stop date: 04/19/16 16:00:00 CDT Notes: (Same as: Zosyn) Dosing based on Piperacillin component Start Date: 03/21/16 Stop Date: 03/21/16 Status: Discontinued Zosyn + sodium chloride 0.9% 100 ml ADV 100 mL 3.375 gm, Route: IVPB, ABXQ8H, Dosing Weight 111.818, kg, CrCl >=20 ml/min infuse over 4 hours, Start date: 03/20/16 18:00:00 CDT, Duration: 30 day, Stop date: 04/19/16 10:00:00 CDT Notes: (Same as: Zosyn) Dosing based on Piperacillin component Start Date: 03/20/16 Stop Date: 03/20/16 Status: Deleted Results ELECTROLYTES 1 2 3 Most recent to oldest [Reference Range]: 139 mEq/L (03/21/16 3:42 AM) 136 mEq/L (03/20/16 2:05 PM) Sodium Lvl [135-145 mEq/L] 4.7 mEq/L (03/21/16 3:42 AM) 3.4 mEq/L *LOW* (03/20/16 2:05 PM) Potassium Lvl [3.5-5.1 mEq/L] 106 mEq/L (03/21/16 3:42 AM) 103 mEq/L (03/20/16 2:05 PM) Chloride Lvl [95-109 mEq/L] 26 mEq/L (03/21/16 3:42 AM) 28 mEq/L (03/20/16 2:05 PM) CO2 [24-32 mEq/L] 11.7 mEq/L (03/21/16 3:42 AM) 8.4 mEq/L *LOW* (03/20/16 2:05 PM) AGAP [10.0-20.0 mEq/L] CHEM PANEL 1 2 3 Most recent to oldest [Reference Range]: 0.80 mg/dL (03/21/16 3:42 AM) 0.82 mg/dL (03/21/16 3:42 AM) 0.85 mg/dL (03/20/16 2:05 PM) Creatinine Lvl [0.50-1.40 mg/dL] 105 mL/min/1.73m2 1 *NA* (03/21/16 3:42 AM) 104 mL/min/1.73m2 2 *NA* (03/21/16 3:42 AM) 102 mL/min/1.73m2 3 *NA* (03/20/16 2:05 PM) eGFR 6 mg/dL *LOW* (03/21/16 3:42 AM) 7 mg/dL (9/25/16 2:05 PM) BUN [7-22 mg/dL] 8 (03/21/16 3:42 AM) 8 (03/20/16 2:05 PM) B/C Ratio [6-25] 149 mg/dL *HI* (03/21/16 3:42 AM) 85 mg/dL (03/20/16 2:05 PM) Glucose Lvl [70-99 mg/dL] 7.1 g/dL (03/21/16 3:42 AM) 7.2 g/dL (03/20/16 2:05 PM) Total Protein [6.4-8.4 g/dL] 2.5 g/dL *LOW* (03/21/16 3:42 AM) 2.6 g/dL *LOW* (03/20/16 2:05 PM) Albumin Lvl [3.5-5.0 g/dL] 4.6 g/dL *HI* (03/21/16 3:42 AM) 4.6 g/dL *HI* (03/20/16 2:05 PM) Globulin [2.7-4.2 g/dL] 0.5 *LOW* (03/21/16 3:42 AM) 0.6 *LOW* (03/20/16 2:05 PM) A/G Ratio [0.7-1.6] 8.3 mg/dL *LOW* (03/21/16 3:42 AM) 8.3 mg/dL *LOW* (03/20/16 2:05 PM) Calcium Lvl [8.5-10.5 mg/dL] 17 unit/L (03/21/16 3:42 AM) 16 unit/L (03/20/16 2:05 PM) ALT [0-65 unit/L] 18 unit/L (03/21/16 3:42 AM) 13 unit/L (03/20/16 2:05 PM) AST [0-37 unit/L] 60 unit/L (03/21/16 3:42 AM) 65 unit/L (03/20/16 2:05 PM) Alk Phos [39-136 unit/L] 0.7 mg/dL (03/21/16 3:42 AM) 0.1 mg/dL *LOW* (03/20/16 2:05 PM) Bili Total [0.2-1.3 mg/dL] 85 unit/L (03/20/16 2:05 PM) Lipase Lvl [73-393 unit/L] 1Result Comment: The eGFR is calculated using [...] be mul tiplied by the estimated BMI. URINE AND STOOL 1 2 3 Most recent to oldest [Reference Range]: Clear (03/20/16 2:05 PM) UA Turbidity [Clear] Yellow *NA* (03/20/16 2:05 PM) UA Color [Yellow] 7.0 (03/20/16 2:05 PM) UA pH [5.0-8.0] 1.018 (03/20/16 2:05 PM) UA Spec Grav [<=1.030] Negative mg/dL *NA* (03/20/16 2:05 PM) UA Glucose [Negative mg/dL] Negative (03/20/16 2:05 PM) UA Blood [Negative] Negative mg/dL *NA* (03/20/16 2:05 PM) UA Ketones [Negative mg/dL] Negative mg/dL (03/20/16 2:05 PM) UA Protein [Negative mg/dL] <=1.0 mg/dL *NA* (03/20/16 2:05 PM) UA Urobilinogen [0.1-1.0 mg/dL] Negative *NA* (03/20/16 2:05 PM) UA Bili [Negative] Negative (03/20/16 2:05 PM) UA Leuk Est [Negative] Negative (03/20/16 2:05 PM) UA Nitrite [Negative] 1 /HPF (03/20/16 2:05 PM) UA WBC [0-5 /HPF] <1 /HPF (03/20/16 2:05 PM) UA RBC [0-2 /HPF] Occasional /LPF *NA* (03/20/16 2:05 PM) UA Sq Epi [Few /LPF] Few /LPF *NA* (03/20/16 2:05 PM) UA Mucus [None Seen /LPF] IMMUNOLOGY 1 2 3 Most recent to oldest [Reference Range]: Negative (03/21/16 3:42 AM) T-Spot.TB [Negative] HEMATOLOGY 1 2 3 Most recent to oldest [Reference Range]: 14.4 K/CMM *HI* (03/21/16 3:42 AM) 13.6 K/CMM *HI* (03/20/16 2:05 PM) WBC [3.7-10.4 K/CMM] 4.78 M/CMM (03/21/16 3:42 AM) 4.97 M/CMM (03/20/16 2:05 PM) RBC [4.70-6.10 M/CMM] 14.2 g/dL (03/21/16 3:42 AM) 14.9 g/dL (03/20/16 2:05 PM) Hgb [14.0-18.0 g/dL] 42.8 % (03/21/16 3:42 AM) 44.5 % (03/20/16 2:05 PM) Hct [42.0-54.0 %] 89.5 fL (03/21/16 3:42 AM) 89.7 fL (03/20/16 2:05 PM) MCV [80.0-94.0 fL] 29.7 pg (03/21/16 3:42 AM) 30.1 pg (03/20/16 2:05 PM) MCH [27.0-31.0 pg] 33.2 g/dL (03/21/16 3:42 AM) 33.5 g/dL (03/20/16 2:05 PM) MCHC [32.0-36.0 g/dL] 14.0 % (03/21/16 3:42 AM) 14.1 % (03/20/16 2:05 PM) RDW [11.5-14.5 %] 284 K/CMM (03/21/16 3:42 AM) 278 K/CMM (03/20/16 2:05 PM) Platelet [133-450 K/CMM] 7.6 fL (03/21/16 3:42 AM) 7.7 fL (03/20/16 2:05 PM) MPV [7.4-10.4 fL] 90.7 % *HI* (03/21/16 3:42 AM) 72.5 % (03/20/16 2:05 PM) Segs [45.0-75.0 %] 6.1 % *LOW* (03/21/16 3:42 AM) 14.9 % *LOW* (03/20/16 2:05 PM) Lymphocytes [20.0-40.0 %] 2.5 % (03/21/16 3:42 AM) 9.9 % (03/20/16 2:05 PM) Monocytes [2.0-12.0 %] 0.2 % (03/21/16 3:42 AM) 2.0 % (03/20/16 2:05 PM) Eosinophils [0.0-4.0 %] 0.5 % (03/21/16 3:42 AM) 0.7 % (03/20/16 2:05 PM) Basophils [0.0-1.0 %] 13.0 K/CMM *HI* (03/21/16 3:42 AM) 9.9 K/CMM *HI* (03/20/16 2:05 PM) Segs-Bands # [1.5-8.1 K/CMM] 0.9 K/CMM *LOW* (03/21/16 3:42 AM) 2.0 K/CMM (03/20/16 2:05 PM) Lymphocytes # [1.0-5.5 K/CMM] 0.4 K/CMM (03/21/16 3:42 AM) 1.3 K/CMM *HI* (03/20/16 2:05 PM) Monocytes # [0.0-0.8 K/CMM] 0.3 K/CMM (03/20/16 2:05 PM) Eosinophils # [0.0-0.5 K/CMM] 0.1 K/CMM (03/21/16 3:42 AM) 0.1 K/CMM (03/20/16 2:05 PM) Basophils # [0.0-0.2 K/CMM] 59 mm/hr *HI* (03/21/16 3:42 AM) Sed Rate [0-15 mm/hr] 13.1 seconds (03/20/16 2:05 PM) PT [12.0-14.7 seconds] 0.96 (03/20/16 2:05 PM) INR [0.85-1.17] 30.5 seconds (03/20/16 2:05 PM) PTT [22.9-35.8 seconds] Immunizations Given and Recorded Vaccine Date Status Refusal Reason pneumococcal 23-valent vaccine 02/08/16 Given Procedures No data available for this section Social History Social History Type Response Smoking Status Current every day smoker; Type: Cigarettes; Number of years: 38; Started at age: 13.0; Previous treatment: None; Ready to change: Yes; Concerns about tobacco use in household: No; Lives with someone who smokes; Cigarette Smoking Last 365 Days Yes; Reg Smoking Cessation Counseling No Assessment and Plan No data available for this section
--- OUTSIDE RECORDS SUMMARY | 2018-12-31 12:10 | XMS REPORT | Summary of Care ---
Author Author [facility] Organization [facility] Address Unknown Phone Unavailable Encounter [facility] Zeke([place]) [id number] Date(s): 03/09/16 - 03/09/16 [facility] [address] [place] [address]- [phone] Discharge Disposition: Home or Self Care Attending Physician: Nadia Arellano MD Referring Physician: Nadia Arellano MD Vital Signs Most recent to 1 oldest [Reference Range]: Height 175.26 cm (03/09/16 1:03 PM) Weight 111.818 kg (03/09/16 1:03 PM) Body Mass Index 36.4 m2 (03/09/16 1:03 PM) Problem List Condition Effective Dates Status Health [...]
--- OUTSIDE RECORDS SUMMARY | 2018-12-31 12:11 | XMS REPORT ---
[facility] Address Unknown Phone Unavailable Care Team Providers Care Hospital Manager Name Role Phone KARLENE CAMP Unavailable Unavailable Problems This patient has no known problems. Allergies, Adverse Reactions, Alerts This patient has no known allergies or adverse reactions. Medications This patient has no known medications. Encounters Start Date/Time End Date/Time Encounter Type Admission Type Attending [facility] Care Facility Care Department Encounter ID 2019-01-25 00:00:00 2019-01-25 00:00:00 Outpatient [facility] [id number] 2018-12-26 11:38:23 2018-12-26 11:38:23 Outpatient [facility] [id number] 2018-12-03 10:13:52 2018-12-03 10:13:52 Outpatient [facility] [id number] 2018-11-23 14:08:58 2018-11-23 14:08:58 Outpatient [facility] [id number] 2018-11-01 11:50:29 2018-11-01 11:50:29 Outpatient [facility] [id number] 2018-11-01 11:50:24 2018-11-01 11:50:24 Outpatient [facility] [id number] 2018-11-01 11:50:20 2018-11-01 11:50:20 Outpatient [facility] [id number] 2018-11-01 11:50:17 2018-11-01 11:50:17 Outpatient [facility] [id number] 2018-11-01 10:51:47 2018-11-01 10:51:47 Outpatient [facility] [id number] 2018-11-01 10:06:13 2018-11-01 10:06:13 Outpatient [facility] [id number] 2018-09-05 10:13:19 2018-09-05 10:13:19 Outpatient [facility] [id number] 2018-08-08 08:58:11 2018-08-08 08:58:11 Outpatient [facility] [id number] 2018-07-04 12:06:53 2018-07-04 12:06:53 Outpatient [facility] [id number] 2018-07-04 10:13:10 2018-07-04 10:13:10 Outpatient [facility] [id number] Results Test Description Test Time Test Comments Text Results Atomic Results Result Comments US PROSTATE-TRANSRECTAL 2018-12-30 02:41:00 [place] [address] Patient Name: SANDY ENGLISH MR #: [id number] : 1965 Age/Sex: 53/M Req #: [id number] Adm Physician: Ordered by: KARLENE CAMP MD Report #: [id number] Location: OR Room/Bed: Procedure: [id number] US/US PROSTATE-TRANSRECTAL Exam Date: 12/29/18 Exam Time: 1042 REPORT STATUS: Signed Transrectal ultrasound of the prostate, ultrasound guidance. TECHNIQUE: Sonographic guidance was provided to Dr. Karlene Campfor the purposes of a transrectal prostate biopsy. HISTORY: Hematuria, phimosis FINDINGS: The seminal vesicles are present and unremarkable. The gland size measures 2.5 x 4.3 x 4.9 cm. The volume is 27.7 cubic cm. The peripheral zone is homogeneous without focal nodules. The transition zone demonstrates no discrete nodules. IMPRESSION: As above Signed by: Dr. Bryan Allen MD on 12/30/2018 2:43 AM Dictated By: BRYAN ALLEN MD 2 Transcribed By: SEGUNDO on 12/30/18242 COPY TO: KARLENE CAMP MD
--- OUTSIDE RECORDS SUMMARY | 2018-12-31 12:11 | XMS REPORT | Summary of Care ---
Author Author [facility] Organization [facility] Address Unknown Phone Unavailable Encounter HQ Zeke([place]) [id number] Date(s): 07/01/16 - 07/03/16 [facility] [address] [place] [address]- Discharge Disposition: Home or Self Care Attending Physician: Nadia Arellano MD Admitting Physician: Nadia Arellano MD Vital Signs 1 2 3 Most recent to oldest [Reference Range]: 175.26 cm (07/01/16 10:35 PM) 175.26 cm (07/01/16 8:08 PM) Height 98.1 DegF (07/03/16 4:00 PM) 97.9 DegF (07/03/16 11:59 AM) 98.0 DegF (07/03/16 8:00 AM) Temperature Oral [96.4-99.1 DegF] 116/68 mmHg (07/03/16 4:00 PM) 131/80 mmHg (07/03/16 11:59 AM) 109/78 mmHg (07/03/16 8:00 AM) Blood Pressure [90-140/60-90 mmHg] 18 BRMIN (07/03/16 8:08 PM) 20 BRMIN (07/03/16 4:00 PM) 20 BRMIN (07/03/16 11:59 AM) Respiratory Rate [14-20 BRMIN] 88 bpm (07/03/16 4:00 PM) 99 bpm (07/03/16 11:59 AM) 110 bpm *HI* (07/03/16 8:00 AM) Peripheral Pulse Rate [60-100 bpm] 115 kg (07/01/16 10:35 PM) 109.091 kg (07/01/16 8:08 PM) Weight 37.44 m2 (07/01/16 10:35 PM) 35.52 m2 (07/01/16 8:08 PM) Body Mass Index Problem List Condition Effective Dates Status Health Status Informant Pleural Resolved effusion(Confirmed) Rheumatoid Resolved arthritis(Confirmed) Allergies, Adverse Reactions, Alerts Substance Reaction Severity Status NKDA Active Medications albuterol 0.083% inhalation solution 2.49 mg, 3 mL, Route: NEB, Drug form: SOLN, ONCE, Dosing Weight 109.091, kg, Praveena ority: STAT, Start date: 07/01/16 21:08:00 REPAIR DEPARTMENT MANAGER, Stop date: 07/01/16 21:08:00 REPAIR DEPARTMENT MANAGER Notes: SEE RT DOCUMENTATION (Same as: Liz) Start Date: 07/01/16 Stop Date: 07/01/16 Status: Completed albuterol-ipratropium 2.5-0.5 mg inhalation solution 3 mL, Route: NEB, Drug Form: SOLN, Dosing Weight 109.091, kg, ONCE, STAT, Start date: 07/01/16 21:08:00 REPAIR DEPARTMENT MANAGER, Stop date: 07/01/16 21:08:00 REPAIR DEPARTMENT MANAGER Notes: (Same as: Duoneb) Start Date: 07/01/16 Stop Date: 07/01/16 Status: Completed DuoNeb inhalation solution 3 ml, Route: NEB, Drug Form: SOLN, Dosing Weight 115, kg, PRN, PRN Respiratory P rotocol, Start date: 07/01/16 23:37:00 REPAIR DEPARTMENT MANAGER, Duration: 30 day, Stop date: 7 23:36:00 REPAIR DEPARTMENT MANAGER Notes: (Same as: Duoneb) Start Date: 07/01/16 Stop Date: 07/03/16 Status: Discontinued Levaquin 500 mg oral tablet 500 mg=1 tab, PO, Q24H, X 7 day, # 7 tab, 0 Refill(s) Start Date: 07/03/16 Stop Date: 07/10/16 Status: Ordered levofloxacin 750 mg, 150 mL, Route: IVPB, Drug form: SOLN, ONCE, Dosing Weight 109.091, kg, P riority: STAT, Start date: 07/01/16 21:27:00 REPAIR DEPARTMENT MANAGER, Stop date: 07/01/16 21:27:[address] Notes: (Same as:Levaquin) Start Date: 07/01/16 Stop Date: 07/01/16 Status: Completed Medrol 4 mg oral tablet 4 mg=1 tab, PO, Daily, # 10 tab, 0 Refill(s) Start Date: 07/01/16 Stop Date: 07/03/16 Status: Discontinued methylPREDNISolone SODium SUCCinate 125 mg, 2 mL, Route: IVP, Drug form: INJ, ONCE, Dosing Weight 109.091, kg, Prior ity: STAT, Start date: 07/01/16 21:08:00 REPAIR DEPARTMENT MANAGER, Stop date: 07/01/16 21:08:00 REPAIR DEPARTMENT MANAGER Notes: (Same as:Solu-MEDROL, A-Methapred) Start Date: 07/01/16 Stop Date: 07/01/16 Status: Completed predniSONE 10 mg oral tablet 10 mg=1 tab, PO, Daily, X 30 day, # 30 tab, 0 Refill(s) Start Date: 07/03/16 Stop Date: 08/02/16 Status: Ordered Rocephin + sodium chloride 0.9% INJ 100 mL 1 gm, Route: IVPB, [id number], Dosing Weight 115, kg, Start date: 07/02/16 0:00:00 REPAIR DEPARTMENT MANAGER, Duration: 30 day, Stop date: 07/31/16 0:00:00 REPAIR DEPARTMENT MANAGER Notes: (Same As: Rocephin).Use with 100 mL NS and infuse over 30 min MEDICA TION WASTE Product Size: 1000 mgProduct Wasted: ___ mg Start Date: 07/02/16 Stop Date: 07/03/16 Status: Discontinued Saline Flush 0.9% 10 mL, Route: IVP, Drug Form: INJ, Dosing Weight 109.091, kg, PRN, PRN Line Flus h, Start date: 07/01/16 21:08:00 REPAIR DEPARTMENT MANAGER, Duration: 30 day, Stop date: 07/31/16 21:0 7:00 REPAIR DEPARTMENT MANAGER Notes: (Same as: BD Posiflush) Start Date: 07/01/16 Stop Date: 07/03/16 Status: Discontinued Saline Flush 0.9% 10 mL, Route: IVP, Drug Form: INJ, Dosing Weight 115.455, kg, PRN, PRN Line Flus h, Start date: 07/01/16 20:09:00 REPAIR DEPARTMENT MANAGER, Duration: 30 day, Stop date: 07/31/16 20:0 8:00 REPAIR DEPARTMENT MANAGER Notes: (Same as: BD Posiflush) Start Date: 07/01/16 Stop Date: 07/03/16 Status: Discontinued Sodium Chloride 0.9% (Bolus) IV 1,000 mL, 1000 ml/hr, Infuse Over: 1 hr, Route: IV, 1,000, Drug form: INJ, ONCE, Priority: STAT, Dosing Weight 109.091 kg, Start date: 07/01/16 21:08:00 REPAIR DEPARTMENT MANAGER, Du ration: 1 doses or times, Stop date: 07/01/16 21:08:00 REPAIR DEPARTMENT MANAGER Start Date: 07/01/16 Stop Date: 07/01/16 Status: Completed Solu-MEDROL 40 mg, 1 mL, Route: IVP, Drug form: INJ, Q8Hnow, Dosing Weight 115, kg, Start da te: 07/02/16 6:00:00 REPAIR DEPARTMENT MANAGER, Duration: 30 day, Stop date: 07/31/16 22:00:00 REPAIR DEPARTMENT MANAGER Notes: (Same as:Solu-MEDROL, A-Methapred) Start Date: 07/02/16 Stop Date: 07/03/16 Status: Discontinued Zithromax 500 mg oral tablet 500 mg, 2 tab, Route: PO, Drug form: TAB, [id number], Dosing Weight 115, kg, Start date: 07/02/16 0:00:00 REPAIR DEPARTMENT MANAGER, Duration: 30 day, Stop date: 07/31/16 0:00:00 REPAIR DEPARTMENT MANAGER Notes: Take 1 hour before or 2 hours after meals.(Same As: Zithromax) Start Date: 07/02/16 Stop Date: 07/03/16 Status: Discontinued Results ELECTROLYTES Most recent to 1 2 oldest [Reference Range]: Sodium Lvl [135-145 140 mEq/L 136 mEq/L mEq/L] (07/03/16 6:25 PM) (07/01/16 8:28 PM) Potassium Lvl 4.4 mEq/L 4.1 mEq/L 1 [3.5-5.1 mEq/L] (07/03/16 6:25 PM) (07/01/16 8:28 PM) Chloride Lvl [95-109 106 mEq/L 101 mEq/L mEq/L] (07/03/16 6:25 PM) (07/01/16 8:28 PM) CO2 [24-32 mEq/L] 26 mEq/L 27 mEq/L (07/03/16 6:25 PM) (07/01/16 8:28 PM) AGAP [10.0-20.0 12.4 mEq/L 12.1 mEq/L mEq/L] (07/03/16 6:25 PM) (07/01/16 8:28 PM) 1Result Comment: Slight hemolysis present. CHEM PANEL Most recent to 1 2 oldest [Reference Range]: Creatinine Lvl 1.00 mg/dL 0.79 mg/dL [0.50-1.40 mg/dL] (07/03/16 6:25 PM) (07/01/16 8:28 PM) eGFR 88 mL/min/1.73m2 1 105 mL/min/1.73m2 2 *NA* *NA* (07/03/16 6:25 PM) (07/01/16 8:28 PM) BUN [7-22 mg/dL] 17 mg/dL 8 mg/dL (07/03/16 6:25 PM) (07/01/16 8:28 PM) B/C Ratio [6-25] 10 (07/01/16 8:28 PM) Glucose Lvl [70-99 129 mg/dL 90 mg/dL mg/dL] *HI* (07/01/16 8:28 PM) (07/03/16 6:25 PM) Total Protein 8.1 g/dL [6.4-8.4 g/dL] (07/01/16 8:28 PM) Albumin Lvl [3.5-5.0 3.1 g/dL g/dL] *LOW* (07/01/16 8:28 PM) Globulin [2.7-4.2 5.0 g/dL g/dL] *HI* (07/01/16 8:28 PM) A/G Ratio [0.7-1.6] 0.6 *LOW* (07/01/16 8:28 PM) Calcium Lvl 8.5 mg/dL 8.9 mg/dL [8.5-10.5 mg/dL] (07/03/16 6:25 PM) (07/01/16 8:28 PM) ALT [0-65 unit/L] 21 unit/L (07/01/16 8:28 PM) AST [0-37 unit/L] 32 unit/L (07/01/16 8:28 PM) Alk Phos [39-136 83 unit/L unit/L] (07/01/16 8:28 PM) Bili Total [0.2-1.3 0.4 mg/dL mg/dL] (07/01/16 8:28 PM) Lactic Acid Lvl 1.1 mMol/L [0.5-2.2 mMol/L] (07/01/16 10:01 PM) 1Result Comment: The eGFR is calculated [...] 2 oldest [Reference Range]: Total CK [12-191 172 unit/L unit/L] (07/01/16 8:28 PM) CK MB [0.5-3.6 2.8 ng/mL ng/mL] (07/01/16 8:28 PM) CK MB Index 1.6 [0.0-2.5] (07/01/16 8:28 PM) Troponin-I <0.02 ng/mL [0.00-0.40 ng/mL] (07/01/16 8:28 PM) BNP [<=100 pg/mL] 14 pg/mL (07/01/16 8:28 PM) HEMATOLOGY Most recent to 1 2 oldest [Reference Range]: WBC [3.7-10.4 K/CMM] 26.0 K/CMM 13.9 K/CMM *HI* *HI* (07/03/16 6:25 PM) (07/01/16 8:28 PM) RBC [4.70-6.10 4.89 M/CMM 5.40 M/CMM M/CMM] (07/03/16 6:25 PM) (07/01/16 8:28 PM) Hgb [14.0-18.0 g/dL] 14.4 g/dL 16.2 g/dL (07/03/16 6:25 PM) (07/01/16 8:28 PM) Hct [42.0-54.0 %] 44.0 % 48.0 % (07/03/16 6:25 PM) (07/01/16 8:28 PM) MCV [80.0-94.0 fL] 89.9 fL 88.9 fL (07/03/16 6:25 PM) (07/01/16 8:28 PM) MCH [27.0-31.0 pg] 29.5 pg 30.0 pg (07/03/16 6:25 PM) (07/01/16 8:28 PM) MCHC [32.0-36.0 32.8 g/dL 33.7 g/dL g/dL] (07/03/16 6:25 PM) (07/01/16 8:28 PM) RDW [11.5-14.5 %] 14.3 % 13.9 % (07/03/16 6:25 PM) (07/01/16 8:28 PM) Platelet [133-450 181 K/CMM 194 K/CMM K/CMM] (07/03/16 6:25 PM) (07/01/16 8:28 PM) MPV [7.4-10.4 fL] 8.1 fL 8.1 fL (07/03/16 6:25 PM) (07/01/16 8:28 PM) Segs [45.0-75.0 %] 75.7 % *HI* (07/01/16 8:28 PM) Lymphocytes 12.3 % [20.0-40.0 %] *LOW* (07/01/16 8:28 PM) Monocytes [2.0-12.0 10.4 % %] (07/01/16 8:28 PM) Eosinophils [0.0-4.0 0.6 % %] (07/01/16 8:28 PM) Basophils [0.0-1.0 1.0 % %] (07/01/16 8:28 PM) Segs-Bands # 10.5 K/CMM [1.5-8.1 K/CMM] *HI* (07/01/16 8:28 PM) Lymphocytes # 1.7 K/CMM [1.0-5.5 K/CMM] (07/01/16 8:28 PM) Monocytes # [0.0-0.8 1.4 K/CMM K/CMM] *HI* (07/01/16 8:28 PM) Eosinophils # 0.1 K/CMM [0.0-0.5 K/CMM] (07/01/16 8:28 PM) Basophils # [0.0-0.2 0.1 K/CMM K/CMM] (07/01/16 8:28 PM) Immunizations Given and Recorded Vaccine Date Status Refusal Reason pneumococcal 23-valent vaccine 02/08/16 Given Procedures Procedure Date Related Diagnosis Body Site Closed reduction of dislocation of shoulder Social History Social History Type Response Smoking Status Current every day smoker; Type: Cigarettes; Exposure to Tobacco Smoke None; Cigarette Smoking Last 365 Days No; Reg Smoking Cessation Counseling Yes Assessment and Plan No data available for this section
--- NOTE | 2019-02-18 01:27 | Operative Report ---
DATE OF PROCEDURE: 12/29/2018 SURGEON: Tomy Camp MD PREOPERATIVE DIAGNOSES: 1. Elevated PSA. 2. Gross hematuria. 3. Microscopic hematuria. 4. Urinary tract infections. 5. Phimosis. POSTOPERATIVE DIAGNOSES: 1. Elevated PSA. 2. Gross hematuria. 3. Microscopic hematuria. 4. Urinary tract infections. 5. Phimosis. 6. Distal urethral stricture disease. OPERATION PERFORMED: 1. Transrectal sonography interpretation (no radiologist present). 2. Radiological services for supervision and interpretation of ultrasonographic guidance for needle biopsies (no radiologist present). 3. Transrectal needle biopsies of the prostate (separate procedure performed for elevated PSA). 4. Cystourethroscopy with calibration and dilation of distal urethral stricture (separate procedure performed for the diagnosis of stricture). 5. Cystourethroscopy with bilateral ureteral catheterization and retrograde ureteropyelography (separate procedure performed for the hematuria and urinary tract infections). 6. Interpretation of retrograde ureteropyelography. 7. Supervision of fluoroscopy, no radiologist present. 8. Circumcision (separate procedure performed for phimosis). 9. Regional nerve block (separate procedure performed for postoperative pain control and not required for actual performance of surgery, done under general anesthesia. ANESTHESIA: General. COMPLICATIONS: None. CLINICAL SUMMARY: Bucky Blanchard is a 53-year-old man with the above preoperative diagnoses. He was brought for the above procedures. He is aware of the risks of bleeding, infection, injury to adjacent structures, need for additional procedures and elected to proceed. OPERATIVE PROCEDURE IN DETAIL: Informed consent was verified. Bucky Blanchard was properly identified, taken to the operating room, where anesthesia was uneventfully begun. He was carefully and gently repositioned in the lateral position on the stretcher. Transrectal sonography was performed. Interpretation of transrectal sonography, a real-time ultrasonography was performed. The patient's prostate was enlarged at 27.7 mL. The capsule was smooth. Seminal vesicles were unremarkable. There were very few calcifications noted in the transition zone. Under ultrasonographic guidance, needle biopsies of the prostate were taken. A total of 12 biopsies were taken at 6 different locations. Two biopsies each were taken at 6 different locations with differentiated right versus left and base versus mid versus apex. After obtaining all the biopsies, the patient was transferred over to the operating room bed, where genitalia were shaved, prepared, and draped in usual sterile fashion. Marcaine without epinephrine was utilized to infiltrate subcutaneously circumferentially the base of the penis as well the regional dorsal penile nerves. This was done for postoperative pain control and not required actual performance of surgery, which was done under general anesthesia. A circumferential incision was then made overlying the morris of the glans penis. The foreskin was fully retracted and secondary incision made approximately 5 mm away from the morris of the glans penis along the inner preputial skin. A sleeve circumcision was performed. The foreskin was removed. Pinpoint electrocautery was utilized to achieve hemostasis. The patient's incision then approximated with 4-0 chromic suture with an excellent cosmetic result. The patient was then carefully and gently repositioned in dorsal lithotomy position with all pressure points well padded. The patient was redraped. The cystoscope sheath with visual obturator in place. It was atraumatically inserted into the patient's urethral meatus. It was guided into the meatus, but there was obstruction at the fossa navicularis. We tried to go through the obstruction with the scope, but this was not possible. We utilized sounds to calibrate this at approximately 16-Algerian in size and dilated to 26-Algerian in size. We then easily able to place the cystoscope sheath and guided down the otherwise relatively unremarkable urethra except for blanching and wide panurethral stricture disease, which was nonobstructive. We passed a normal sphincteric region, went through the prostate bed, which was significant for early BPH. We entered into the patient's bladder, which exhibited grade 1 trabeculations. An 8-Algerian catheter was used to cannulate each ureter and retrograde ureteropyelograms were performed. Interpretation of retrograde ureteropyelography contrast was instilled in retrograde fashion bilaterally. There were no tumors, no stones, and no diverticula. Unobstructed drainage was observed bilaterally fluoroscopically. The patient's bladder was drained. Panendoscopy again was performed revealing no tumors, no stones, and no diverticula. No suspicious mucosal lesions were identified. The patient's bladder was drained. Cystoscope was withdrawn. Sterile dressings were applied of bacitracin ointment followed by Vaseline gauze, followed by loose-fitting Kami, and the patient was uneventfully reversed from anesthesia and taken to recovery in stable condition. Explicit postop instructions were given. We will follow the patient in the office. There were no complications to the procedure. He tolerated the procedure well. Sponge, needle, and instrument counts were of course correct x2 at the end of the case. MD [address]/GREER /[id number]
== END | disposition home or self-care (01) ==
LOC: OR 08:35
PROVIDERS: ATTEND Urology
DX: N47.1 Phimosis (principal); N42.31 Prostatic intraepithelial neoplasia; N35.919 Unspecified urethral stricture, male, unspecified site; N48.0 Leukoplakia of penis; N39.0 Urinary tract infection, site not specified; N39.41 Urge incontinence; N32.89 Other specified disorders of bladder; N40.0 Benign prostatic hyperplasia without lower urinary tract symptoms; R80.9 Proteinuria, unspecified; R35.1 Nocturia; Q55.22 Retractile testis; M06.9 Rheumatoid arthritis, unspecified; R56.9 Unspecified convulsions; K21.9 Gastro-esophageal reflux disease without esophagitis; E66.9 Obesity, unspecified; Z01.810 Encounter for preprocedural cardiovascular examination; Z68.36 Body mass index [BMI] 36.0-36.9, adult
CPT/HCPCS: 52281; 54161; 55700; 74420; 76872; 76998; 88304; 88305; 93005; C1758; J0461; J1580; J2001; J2250; J2543; J2704; J2710; Q9967; J3010

== ENCOUNTER 2019-01-06 11:28 | Emergency (ER) | payer OTHER ==
[~2019-01-06] VITALS: Ht 175.3 cm; Wt 124.7 kg
[~2019-01-06 11:28] MED LIST changes: -ATROPINE SULFATE 1 MG/ML VIAL ONE; -B&O 60MG R/S 60 MG SUPP PR ONE; -BUPIVACAINE HCL 0.5% INJ 30 ML VIAL INJ ONE; -FENTANYL CITRATE/PF 100MCG/2 ML INJ ONE; -GENTAMICIN 80MG/NS 100 ML 200 ML IV ONE; -IOPAMIDOL 300MG/ML 50ML INFUS..BTL IV ONE; -LIDOCAINE HCL 2% LOCAL INJ 5 ML SDV VIAL INJ ONE; -MIDAZOLAM HCL 2 MG/2 ML VIAL ONE; -NEOSTIGMINE 1 MG/ML 10ML VIAL ONE; -PIPER-TAZ 3.375 GM 50 ML ONE; -PROPOFOL IV EMULSION 10 MG/ML 20 ML VIAL ONE
--- OUTSIDE RECORDS SUMMARY | 2019-01-06 11:32 | XMS REPORT | Clinical Summary ---
Author Author [facility] Organization [facility] Address Unknown Phone Unavailable Care Team Providers Care Scrap Preparer Name Role Phone PCP Unavailable Allergies Comments [...] Dx) 07/11/2018 Orders Only Ent-Otolaryngology Zac Maxwell ResidentNC 07/10/2018 E-Consult Ent-Otolaryngology Rhonda Crooks MD Vocal cord paresis; Rheumatoid arthritis involving multiple sites, unspecified rheumatoid factor presence 07/04/2018 Hospital Lab Encounter Rhonda Crooks MD Vocal cord paresis (Primary Dx); Rheumatoid arthritis involving multiple sites, unspecified rheumatoid factor presence; Shortness of breath 07/04/2018 Office Visit Ent-Otolaryngology 07/04/2018 Travel after 01/05/2018 Social History Date Tobacco Use Types Packs/Day [...] Date Type Specialty Ashley Schumacher, Fellow() [address] [place] [address] radha 01/25/2019 Office Visit Rheumatology Health Maintenance [...] CCP IGG ABS Routine 07/04/2018 12:20 PM TECHNICAL OPERATIONS MANAGER COMPREHENSIVE METABOLIC Routine 07/04/2018 Vocal cord paresis PANEL 12:20 PM TECHNICAL OPERATIONS MANAGER Rheumatoid arthritis involving multiple sites, unspecified rheumatoid factor presence CBC/DIFF Routine 07/04/2018 Vocal cord paresis 12:20 PM TECHNICAL OPERATIONS MANAGER Rheumatoid arthritis involving multiple sites, unspecified rheumatoid factor presence SED RATE Routine 07/04/2018 Vocal cord paresis 12:20 PM TECHNICAL OPERATIONS MANAGER Rheumatoid arthritis involving multiple sites, unspecified rheumatoid factor presence C-REACTIVE PROTEIN HIGH Routine 07/04/2018 Vocal cord paresis SENSITIVITY (CRP-HS) 12:20 PM TECHNICAL OPERATIONS MANAGER Rheumatoid arthritis involving multiple sites, unspecified rheumatoid factor presence RA FACTOR Routine 07/04/2018 Vocal cord paresis 12:20 PM TECHNICAL OPERATIONS MANAGER Rheumatoid arthritis involving multiple sites, unspecified rheumatoid factor presence after 01/05/2018 Results * CBC (12/03/2018 10:14 AM CDT) WBC 9.8 4.5 - 12.0 K/uL [facility] RBC 4.58 (L) 4.60 - 6.20 M/uL [facility] Hemoglobin 13.1 (L) 14.0 - 18.0 g/dL [facility] Hematocrit 41.1 40.0 - 54.0 % [facility] MCV 89.7 82.0 - 92.0 fL [facility] MCH 28.6 27.0 - 31.0 pg [facility] MCHC 31.9 (L) 32.0 - 36.0 g/dL [facility] RDW 51.3 (H) 35.1 - 43.9 fL [facility] Platelet 211 150 - 400 K/uL [facility] Mean Platelet 9.7 9.4 - 12.4 fL [facility] Volume LAB Specimen Blood Performing Organization Address City/State/Zipcode Phone Number [facility] [address] [place] [address] [facility] [address] [place] [address] * COMPREHENSIVE METABOLIC PANEL(DBIL NOT INCLUDED) (12/03/2018 10:14 AM CDT) Only the most recent of 3 results within the time period is included. Sodium 140 136 - 145 mmol/L [facility] Potassium 3.9 3.5 - 5.1 mmol/L [facility] Chloride 107 98 - 107 mmol/L [facility] CO2 26 21 - 31 mmol/L [facility] Glucose 102 70 - 110 mg/dL [facility] Calcium, Total 8.9 8.6 - 10.3 mg/dL [facility] Urea Nitrogen 10.0 7.0 - 25.0 mg/dL [facility] Creatinine 1.0 0.7 - 1.3 mg/dL [facility] Alkaline 41 34 - 104 U/L [facility] Phosphatase LAB ALT 16 7 - 52 U/L [facility] AST 18 13 - 39 U/L [facility] Total Bilirubin 0.4 0.2 - 1.2 mg/dL [facility] Total Protein 6.6 6.0 - 8.3 g/dL [facility] GFR, Estimated >60 mL/min/1.73 m2 [facility] Albumin 3.5 (L) 4.2 - 5.5 g/dL [facility] Anion Gap 7 5 - 16 mmol/L [facility] Specimen Blood Performing Organization Address [facility]/Zipcode Phone Number [facility] [address] [place] [phone] [facility] [address] [place] [phone] * DIFFERENTIAL, MANUAL (12/03/2018 10:14 AM CDT) WBC Corrected 9.8 4.5 - 12.0 K/uL [facility] Neutrophil 62.0 34.0 - 67.9 % [facility] Lymphocyte 20.0 (L) 21.8 - 50.0 % [facility] Monocyte 14.0 (H) 5.3 - 12.0 % [facility] Eosinophil 2.0 0.8 - 5.0 % [facility] Basophil 2.0 (H) 0.2 - 1.2 % [facility] Segs + Bands, 6.08 K/uL [facility] Abs LAB Neutrophil, Abs 6.08 (H) 1.78 - 5.36 K/uL [facility] Lymphocyte, Abs 1.96 1.32 - 3.57 K/uL [facility] Monocyte, Abs 1.37 (H) 0.30 - 0.82 K/uL [facility] Eosinophil, Abs 0.20 0.04 - 0.54 K/uL [facility] Basophil, Abs 0.20 (H) 0.01 - 0.08 K/uL [facility] Cells Counted 100 [facility] Specimen Blood Performing Organization Address City/[facility]/Zipcode Phone Number [facility] [address] [place] [phone] [facility] [address] [place] [phone] * XRAY HAND 2 VIEWS (11/01/2018 [...] MD, 11/02/2018 12:46 PM Performing Organization Address [facility] Phone Number SMS * SJOGREN'S AB (11/01/2018 11:17 AM CDT) Pathologist [facility] Anti SS/A <0.2 LABORATORY Reference range: 0.0 to 0.9 CORPORATION OF Unit: AI [place] Anti SS/B <0.2 LABORATORY Reference range: 0.0 to 0.9 CORPORATION OF Unit: AI [place]ARRY Specimen Blood Products (Lab Use Only) - BLOOD Performing Organization Address [facility] Phone Number [facility] Reasult OF [address] [place] [address] HARRY 145 * QUANTIFERON TB GOLD (11/01/2018 11:06 AM CDT) [facility] QuantiFERON Comment LABORATORY Criteria (note) CORPORATION OF [...] CORPORATION OF [place] Specimen Performing Organization Address [facility] Phone Number [facility] Reasult OF [address] [place] [phone] H[place] 145 * QUANTIFERON TB GOLD (11/01/2018 11:06 AM CDT) [facility] QuantiFERON Incubation performed. LABORATORY Incubation CORPORATION OF [place] QuantiFERON TB Negative LABORATORY Gold Plus Reference range: Negative CORPORATION OF [place]Y Specimen Blood Performing Organization Address [facility] Phone Number [facility] CORPORATION OF [address] [facility] [place] [address] HARRY 145 * HEPATITIS PANEL (11/01/2018 11:06 [...] WBC 17.6 (H) 4.5 - 12.0 K/uL [facility] RBC 4.70 4.60 - 6.20 M/uL [facility] Hemoglobin 13.4 (L) 14.0 - 18.0 g/dL [place] [address] Hematocrit 41.7 40.0 - 54.0 % [place] [address] MCV 89 82 - 92 fL [facility] 2 MCH 28.5 27.0 - 31.0 pg [facility] 2 MCHC 32.1 32.0 - 36.0 g/dL [place] [address] RDW 50.9 (H) 35.1 - 43.9 fL [facility] 2 Platelets 247 150 - 400 K/uL [facility] 2 Neutrophils 62.3Comment: Corrected on 34.0 - 67.9 % [facility] 2 11/01 AT 1232: Previously reported as: 64.3 Lymphs 22.6 21.8 - 50.0 % [facility] Monocytes 11.2 5.3 - 12.0 % [facility] 2 Eos 1.3 0.8 - 5.0 % [facility] 2 Basos 0.6 0.2 - 1.2 % [facility] 2 Neutrophils 10.96 (H)Comment: Corrected on 1.78 - 5.36 K/uL [facility] 2 (Absolute) 11/01 AT 1232: Previously reported as: 11.31 Lymphs 3.98 (H)Comment: Corrected on 1.32 - 3.57 K/uL [facility] 2 (Absolute) 11/01 AT 1232: Previously reported as: 3.96 Monocytes(Absol 1.97 (H)Comment: Corrected on 0.30 - 0.82 K/uL [facility] 2 [facility]) 11/01 AT 1232: Previously reported as: 1.96 Eos (Absolute) 0.23Comment: Corrected on 0.04 - 0.54 K/uL [facility] 2 11/01 AT 1232: Previously reported as: 0.22 Baso (Absolute) 0.11 (H)Comment: Corrected on 0.01 - 0.08 K/uL [facility] 2 11/01 AT 1232: Previously reported as: 0.10 Atypical Lymph 2 % [facility] 2 Specimen Blood Performing Organization Address [facility] Phone Number [facility] 2 * COMPLEMENT C4 (11/01/2018 11:06 AM CDT) Complement C4 25.2 19 - 52 mg/dL [facility]IN-[facility] 1 Specimen Blood Performing Organization Address [facility] Phone Number [facility] BT [facility] 1 * COMPLEMENT C3 (11/01/2018 11:06 AM CDT) Complement C3 141.2 87 - 200 mg/dL [facility] 1 Specimen Blood Performing Organization Address [facility] Phone Number [facility] BT [facility] 1 * SANDY (11/01/2018 11:06 AM CDT) SANDY Screen Negative NEG BT DIAGNOSTIC IMMUNOLOGY Specimen Blood Performing Organization Address [facility] Phone Number [facility] BT DIAGNOSTIC IMMUNOLOGY * UA CHEMISTRIES (11/01/2018 10:48 AM CDT) Color Yellow [facility] 2 Clarity Clear [facility] 2 Specific 1.019 1.001 - 1.035 BT MAIN-STATION [place] 2 pH 6.0 5 - 8 BT [...] MAIN-STATION 2 Specimen Urine Performing Organization Address [facility] Phone Number [facility] 2 * T PROT/CREA RATIO,UR (11/01/2018 10:48 AM CDT) Creatinine, 182.5 20 - 370 mg/dL [facility] Urine 1 T Prot, Ur 0.26 g/L [facility] 1 T Prot/Crea 0.14 0.0 - 0.5 BT MAIN-STATION Ratio,Ur 1 Specimen Urine Performing Organization Address [facility] Phone Number [facility] BT [facility]IN-[facility] 1 * CCP IGG ABS (07/04/2018 12:20 PM TECHNICAL OPERATIONS MANAGER) CCP Abs IgG/IgA >250 LABORATORY Reference range: 0 to 19 CORPORATION OF Unit: units HARRY (note) Negative <20 Weak ptixgrlb32 - 39 Moderate - 59 Strong positive>59 (H) Specimen Performing Organization Address [facility] Phone Number [facility] CORPORATION OF [address] [place], [place] [phone] HARRY 145 * CRP, HIGH SENS (07/04/2018 12:20 PM TECHNICAL OPERATIONS MANAGER) CRP, high sens 14.692 (H) <1.0 mg/dL [facility] 1 Specimen Blood Performing Organization Address [facility] Phone Number [facility]IN-ST[facility] 1 * SED RATE (07/04/2018 12:20 PM TECHNICAL OPERATIONS MANAGER) Sed Rate 91 (H) <20 mm/Hr [facility] BLOOD BANK Specimen Blood Performing Organization Address [facility] Phone Number [facility] B[facility]OD BANK [address] [place] [phone] * RA FACTOR (07/04/2018 12:20 PM TECHNICAL OPERATIONS MANAGER) RA Factor 1,754 (H) <14 IU/mL [facility]IN[facility] 1 Specimen Blood Performing Organization Address [facility] Phone Number [facility] BT MAIN-STATION 1 after 01/05/2018 Insurance Type Payer Benefit Subscriber ID Effective Phone Address Plan / Dates Group [facility] xxxxxxxxxxxx 2018-P [phone] [address] [facility] [id number] [facility] [phone] [employer] PLAN [employer] PLAN xxxxxxx 2018-9 [address] [place] [address]
--- OUTSIDE RECORDS SUMMARY | 2019-01-06 11:36 | XMS REPORT | Continuity of Care Document ---
Author Author [employer] Address Unknown Phone Unavailable Care Team Providers Care Communication Skills Instructor Name Role Phone [employer] Unavailable Unavailable Problems Problem Status Onset Date Classification Date Reported Comments Source Tracheostomy care Active 11/23/2018 12/26/2018 [facility] Vocal cord paresis Active 07/04/2018 12/26/2018 [facility] Encounter for attention to tracheostomy 05/28/2018 10/11/2018 [facility] OTHER Active 03/24/2018 [facility] Sepsis, unspecified organism 01/31/2018 08/11/2018 [facility] SOB Active 01/07/2018 [facility] STRIDOR Active 01/07/2018 [facility] DIFFICULTY BREATHING Active 12/11/2017 [facility] STRIDOR, GI BLEED Active 12/11/2017 [facility] RECURRENT PLEURAL EFFUSION ON RIGHT, ANEUDY Active 12/06/2017 [facility] Pneumonia 10/16/2017 10/19/2017 [facility] SOB 10/16/2017 10/19/2017 [facility] Swelling of lower extremity 10/16/2017 10/19/2017 [facility] DIFF BREATHING Active 10/16/2017 [facility] BACTERIAL PNEUMONIA Active 07/01/2016 [facility] Discharge Diagnosis: Pleurisy 04/11/2016 04/14/2016 [facility] Discharge Diagnosis: Pleural effusion 04/11/2016 04/14/2016 [facility] ABD PAIN Active 03/20/2016 [facility] PLEURAL EFFUSION Active 03/20/2016 [facility] RT PLEURAL EFFUSION Active 03/08/2016 [facility] LT PLEURAL EFFUSION Active 03/04/2016 [facility] LOW BACK PAIN/COUGHING Active 02/03/2016 [facility] PLEURAL EFFSUION, PNEUMONIA Active 02/03/2016 [facility] UTI Active 09/02/2012 12/26/2018 [facility] FLU LIKE SYMPTOMS Active 07/28/2012 [facility] URINARY PROBLEMS Active 05/12/2011 [facility] Disorder of vocal cords Active 12/26/2018 [facility] Encounter for attention to tracheostomy Active 12/26/2018 [facility] Tracheostomy in place Active 12/26/2018 [facility] Rheumatoid arthritis involving multiple sites, unspecified rheumatoid factor presence Active 12/26/2018 [facility] Rheumatoid arteritis Active 12/26/2018 [facility] Shortness of breath Active 12/26/2018 [facility] Rheumatoid arthritis with positive rheumatoid factor, involving unspecified site Active 12/26/2018 [facility] Dietary counseling Active 12/26/2018 [facility] Exercise counseling Active 12/26/2018 [facility] Rheumatoid arthritis Resolved Problem 10/11/2018 [facility] [place] Pleural effusion Resolved Problem 10/11/2018 [facility] Paralysis of vocal cords and larynx, bilateral 10/11/2018 [facility] Rheumatoid arthritis, unspecified 10/11/2018 [facility] use of anticoagulants 10/11/2018 [facility] Other alf drug therapy 10/11/2018 [facility] Nicotine dependence, cigarettes, uncomplicated 10/11/2018 [facility] Pneumonia due to Pseudomonas 08/11/2018 [facility] Acute respiratory failure with hypoxia 08/11/2018 [facility] Acute on chronic diastolic heart failure 08/11/2018 [facility] Chronic obstructive pulmonary disease with acute lower respiratory infection 08/11/2018 [facility] Dependence on respirator [ventilator] status 08/11/2018 [facility] Severe sepsis without septic shock 08/11/2018 [facility] Major depressive disorder, single episode, unspecified 08/11/2018 [facility] Anxiety disorder, unspecified 08/11/2018 [facility] Anemia, unspecified 08/11/2018 [facility] Obstructive sleep apnea (pediatric) 08/11/2018 [facility] Unspecified atrial fibrillation 08/11/2018 [facility] Dysphagia, unspecified 08/11/2018 [facility] Sleep deprivation 08/11/2018 [facility] PNEUMONIA, UNSPECIFIED ORGANISM Active [facility] PLEURAL EFFUSION, NOT ELSEWHERE CLASSIFI Active [facility] SHORTNESS OF BREATH Active [facility] STRIDOR Active [facility] GASTROINTESTINAL HEMORRHAGE, UNSPECIFIED Active [facility] Medications Medication Details Route Status Patient Instructions Ordering Provider Order Date Source methylPREDNISolone (MEDROL) 4 mg dose pack Take 1 tablet by mouth daily only Oral Active 11/01/2018 [facility] sulfaSALAzine (SULFAZINE) 500 mg tablet Take 500 mg PO BID after 2 weeks and then 1 gm PO BID. Active 11/01/2018 [facility] levofloxacin 750 mg oral tablet 750 mg=1 tab, PO, [id number], X 10 day, # 10 tab, 0 Refill(s), Pharmacy: [id number] No Longer Active 01/20/2018 [facility] Furosemide 20 MG Oral Tablet 20 mg=1 tab, PO, Daily, # 30 tab, 0 Refill(s), Pharmacy: [place] [id number] Active 01/20/2018 [facility] AMIODarone 200 mg oral tablet 200 mg=1 tab, PO, Daily, # 30 tab, 0 Refill(s), Pharmacy: [place] [id number] Active 01/20/2018 [facility] pantoprazole 40 mg oral enteric coated tablet 40 mg=1 tab, PO, BID-Before Meals, # 60 tab, 0 Refill(s), Pharmacy: [place] [id number] Active 01/20/2018 [facility] leflunomide 10 mg oral tablet 10 mg=1 tab, PO, Bedtime, # 30 tab, 0 Refill(s), Pharmacy: [place] [id number] Active 01/20/2018 [facility] rivaroxaban 20 mg oral tablet 20 mg=1 tab, PO, QPM, # 30 tab, 0 Refill(s), Pharmacy: [place] [id number] Active 01/20/2018 [facility] Levaquin 750 mg, 3 tab, Route: PO, Drug form: TAB, [id number], Dosing Weight 107.7, kg, Priority: STAT, Start date: 01/20/18 12:52:00 CDT, Duration: 10 day, Stop date: 01/29/18 12:52:00 CDT, ABX Indication: Pneumon iaNotes: Do not give w/antacids, dairy pdt & minerals Take 1 hr before or 2 hr after dairy pdt (Same as:Levaquin) No Longer Active 01/20/2018 [facility] Amiodarone 200 mg, 1 tab, Route: PO, Drug form: TAB, Daily, Dosing Weight 107.7, kg, Priority: Routine, Start date: 01/20/18 9:00:00 CDT, Duration: 30 day, Stop date: 02/18/18 9:00:00 CDTNotes: (Same as: Cordarone) No Longer Active 01/20/2018 [facility] Mucinex 600 mg, 1 tab, Route: PO, Drug form: ERTAB, Q12H, Dosing Weight 107.7, kg, Priority: NOW, Start date: 01/19/18 21:08:00 CDT, Duration: 30 day, Stop date: 02/18/18 21:00:00 CDTNotes: (Same as: Guaifenesin LA, Humibid LA, Mucinex) "Do Not Crush" Take medication with plenty of water. No Longer Active 01/20/2018 [facility] cefepime 2 gm, Route: IVPB, [id number], Dosing Weight 107.7, kg, (CrCl >/=50 ml/min, DRIVER TRAINEE infection or neutropenic fever), Start date: 01/18/18 0:00:00 CDT, Duration: 10 day, Stop date: 01/27/18 16:00:00 CDT, ABX Indication: PneumoniaNotes: (Same as: Maxipime) MEDICATION WASTE Product Size: 2000 mg Product Wasted: ___ mg No Longer Active 01/18/2018 [facility] Amiodarone 200 mg, 1 tab, Route: PO, Drug form: TAB, BID, Dosing Weight 107.7, kg, Start date: 01/16/18 21:00:00 CDT, Duration: 30 day, Stop date: 02/15/18 9:00:00 CDTNotes: (Same as: Cordarone) No Longer Active 01/17/2018 [facility] vancomycin + Sodium Chloride 0.9% IV 500 mL 1,750 mg, Route: IVPB, [id number], Start date: 01/16/18 19:00:00 CDT, Duration: 12 day, Stop date: 01/28/18 7:00:00 CDT, ABX Indication: PneumoniaNotes: TIME CRITICAL MEDICATION (Same As: Vancocin) Infusion rate 2001 mg: infuse over 2.5 hours For adult patients only: Round to nearest 250 mg per Medical Staff approval MEDICATION WASTE Product Size: 1000 mg Product Wasted: ___ mg No Longer Active 01/17/2018 [facility] Protonix 40 mg, 1 tab, Route: PO, Drug form: ECTAB, BID- Before Meals, Start date: 01/16/18 17:30:00 CDT, Duration: 30 day, Stop date: 02/15/18 16:30:00 CDTNotes: Tablet should not be chewed or crushed. (Same as: Protonix) No Longer Active 01/16/2018 [facility] ATTN RN please do not admin vanc dose until trough drawn* ATTN RN please do not admin vanc dose until trough drawn*, ATTN RN, Drug form: MISC, Route: MISC, ONCE, 01/16/18 17:00:00 CDT, Stop date: 01/16/18 17:00:00 CDT Inactive 01/16/2018 [facility] Xarelto 20 mg, 1 tab, Route: PO, Drug form: TAB, QPM, Dosing Weight 107.7, kg, Start date: 01/16/18 17:00:00 CDT, Duration: 30 day, Stop date: 02/14/18 17:00:00 CDTNotes: (Same as: Xarelto) Administer with food No Longer Active 01/16/2018 [facility] Digoxin 0.25 MG Oral Tablet 0.25 mg, 1 tab, Route: PO, Drug form: TAB, Daily, Dosing Weight 107.7, kg, Start date: 01/16/18 9:00:00 CDT, Duration: 30 day, Stop date: 02/14/18 9:00:00 CDTNotes: Take on an Empty Stomach (Same as: Lanoxin) No Longer Active 01/16/2018 [facility] Lovenox 110 mg, 0.73 mL, Route: SUB-Q, Drug form: INJ, [id number], Dosing Weight 107.7, kg, Start date: 01/15/18 13:00:00 CDT, Duration: 30 day, Stop date: 02/14/18 1:00:00 CDT No Longer Active 01/15/2018 [facility] Amiodarone 150 mg, 3 mL, Route: IVPB, ONCE, Dosing Weight 107.7, kg, Start date: 01/15/18 10:51:00 CDT, Stop date: 01/15/18 10:51:00 CDTNotes: Central administration only for concentrations > 2 mg/ml. "Recommendation: Use an in-line filter during administration for continuous infusions to reduce the incidence of phlebitis" (Same as Codarone) MEDICATION WASTE Product Size: 150 mg Product Wasted: ___ mg Inactive 01/15/2018 [facility] AMIODarone 900 mg in D5W 500 ml [...] Wasted: ___ mg No Longer Active 01/15/2018 [facility] Lopressor 5 mg, 5 mL, Route: IVP, Drug form: INJ, ONCE, Dosing Weight 107.7, kg, PRN Other -See Comment, Start date: 01/15/18 10:30:00 CDTNotes: (Same as: Lopressor) Push over 2 minutes Inactive 01/15/2018 [facility] NS (Bolus) IV 1,000 mL, 1,000 ml/hr, Infuse Over: 1 hr, Route: IV, 1,000, Drug form: INJ, ONCE, Priority: STAT, Dosing Weight 107.7 kg, Start date: 01/15/18 10:22:00 CDT, Stop date: 01/15/18 10:22:00 CDT Inactive 01/15/2018 [facility] Metoprolol 5 mg, 5 mL, Route: IVP, Drug form: INJ, ONCE, Dosing Weight 107.7, kg, Start date: 01/15/18 10:18:00 CDT, Stop date: 01/15/18 10:18:00 CDTNotes: (Same as: Lopressor) Push over 2 minutes Inactive 01/15/2018 [facility] Digoxin 250 microgram, 1 mL, Route: IV, Drug form: INJ, ONCE, Dosing Weight 107.7, kg, Start date: 01/15/18 4:47:00 CDT, Stop date: 01/15/18 4:47:00 CDTNotes: (Same as: Lanoxin) Inactive 01/15/2018 [facility] Metoprolol 2.5 mg, 2.5 mL, Route: IV, Drug form: INJ, ONCE, Dosing Weight 107.7, kg, Start date: 01/15/18 2:21:00 CDT, Stop date: 01/15/18 2:21:00 CDTNotes: (Same as: Lopressor) Push over 2 minutes Inactive 01/15/2018 [facility] Diltiazem 5 mg, 1 mL, Route: IV, Drug form: INJ, ONCE, Dosing Weight 107.7, kg, Start date: 01/15/18 1:26:00 CDT, Stop date: 01/15/18 1:26:00 CDTNotes: (Same as: Cardizem) Inactive 01/15/2018 [facility] Zoloft 25 mg, 0.5 tab, Route: PO, Drug form: TAB, Bedtime, Dosing Weight 107.7, kg, Start date: 01/14/18 21:00:00 CDT, Duration: 30 day, Stop date: 02/12/18 21:00:00 CDTNotes: (Same as: Zoloft) No Longer Active 01/15/2018 [facility] cefepime 1 gm, Route: IVPB, [id number], Dosing Weight 107.7, kg, (CrCl >/=50 ml/min), Start date: 01/14/18 18:00:00 CDT, Duration: 10 day, Stop date: 01/24/18 10:00:00 CDT, ABX Indication: ED - Suspected SepsisNotes: (Same As: Maxipime) MEDICATION WASTE Product Size: 1000 mg Product Wasted: ___ mg No Longer Active 01/14/2018 [facility] Vancomycin Route: IVPB, [id number], Dosing Weight 107.7, kg, Start date: 01/14/18 [...] Wasted: ___ mg No Longer Active 01/14/2018 [facility] Tylenol 650 mg, 2 tab, Route: PO, Drug form: TAB, Q6H, Dosing Weight 107.7, kg, PRN Pain 1-3/Temp > 100.4 F, Start date: 01/14/18 17:33:00 CDT, Duration: 30 day, Stop date: 02/13/18 17:32:00 CDTNotes: Do not exceed 4 gm/day. (Same as: Tylenol) No Longer Active 01/14/2018 [facility] Zoloft 25 mg, 0.5 tab, Route: PO, Drug form: TAB, ONCE, Dosing Weight 107.7, kg, Start date: 01/13/18 22:00:00 CDT, Stop date: 01/13/18 22:00:00 CDTNotes: (Same as: Zoloft) Inactive 01/14/2018 [facility] Melatonin 3 MG Extended Release Tablet 3 mg, 1 tab, Route: PO, Drug Form: TAB, Dosing Weight 107.7, kg, Bedtime, PRN Insomnia, Start date: 01/13/18 16:16:00 CDT, Duration: 30 day, Stop date: 02/12/18 16:15:00 CDTNotes: (Same as: Melatonin) No Longer Active 01/13/2018 [facility] D5W 1/2NS 1,000 mL 1,000 mL, Rate: 100 ml/hr, Infuse over: 10 hr, Route: IV, Dosing Weight 107.7 kg, Total Volume: 1,000, Start date: 01/13/18 14:04:00 CDT, Duration: 30 day, Stop date: 02/12/18 14:03:00 CDT, 2.36, m2 No Longer Active 01/13/2018 [facility] D5NS 1000 mL 1,000 mL, Rate: 100 ml/hr, Infuse over: 10 hr, Route: IV, Dosing Weight 107.7 kg, Total Volume: 1,000, Start date: 01/13/18 14:04:00 CDT, Duration: 30 day, Stop date: 02/12/18 14:03:00 CDT, 2.36, m2 Inactive 01/13/2018 [facility] Zofran 4 mg, 2 mL, Route: IVP, Drug form: INJ, Q8H, Dosing Weight 107.7, kg, PRN Nausea, Start date: 01/12/18 19:38:00 CDT, Duration: 30 day, Stop date: 02/11/18 19:37:00 CDTNotes: (Same as: Zofran) MEDICATION WASTE Product Size: 4 mg Product Wasted: ___ mg No Longer Active 01/13/2018 [facility] Morphine 6 mg, 3 mL, Route: PO, Drug form: SOLN, Q4H, Dosing Weight 107.7, kg, PRN Pain Score 7-10, Start date: 01/12/18 14:41:00 CDT, Duration: 30 day, Stop date: 02/11/18 14:40:00 CDTNotes: (Same as:MORPhine Sulfate) No Longer Active 01/12/2018 [facility] Furosemide 20 MG Oral Tablet 20 mg, 1 tab, Route: PO, Drug form: TAB, Daily, Dosing Weight 107.7, kg, Start date: 01/12/18 9:00:00 CDT, Duration: 30 day, Stop date: 02/10/18 9:00:00 CDTNotes: (Same as: Lasix) May cause GI upset. Give with food or milk. No Longer Active 01/12/2018 [facility] Fentanyl 25 microgram, 0.5 mL, Route: IV, Drug form: INJ, Q2H, Dosing Weight 107.7, kg, PRN Pain Score 6-10, Start date: 01/11/18 9:20:00 CDT, Duration: 30 day, Stop date: 02/10/18 9:19:00 CDTNotes: (Same as: Sublimaze) Preservative free. No Longer Active 01/11/2018 [facility] glycopyrrolate (ANES) Route: IV, Drug form: INJ, ONCE, Stop date: 01/10/18 9:46:00 CDT Inactive 01/10/2018 [facility] neostigmine (ANES) Route: IV, Drug form: INJ, ONCE, Stop date: 01/10/18 9:46:00 CDT Inactive 01/10/2018 [facility] dexamethasone (ANES) Route: IV, Drug form: INJ, ONCE, Stop date: 01/10/18 9:31:00 CDT Inactive 01/10/2018 [facility] fentaNYL (ANES) Route: IV, Drug form: INJ, ONCE, Stop date: 01/10/18 9:26:00 CDT Inactive 01/10/2018 [facility] rocuronium (ANES) Route: IV, Drug form: INJ, ONCE, Stop date: 01/10/18 9:26:00 CDT Inactive 01/10/2018 [facility] propofol (ANES) Route: IV, Drug form: INJ, ONCE, Stop date: 01/10/18 9:26:00 CDT Inactive 01/10/2018 [facility] ceFAZolin (ANES) Route: IV, Drug form: INJ, ONCE, Stop date: 01/10/18 9:26:00 CDT Inactive 01/10/2018 [facility] midazolam (ANES) Route: IV, Drug form: SOLN, ONCE, Stop date: 01/10/18 9:16:00 CDT Inactive 01/10/2018 [facility] Lactated Ringers Injection IV (ANES) 1000 mL Route: IV, Total Volume: 1,000, Start date: 01/10/18 8:20:00 CDT, Stop date: 01/10/18 9:20:00 CDT Inactive 01/10/2018 [facility] Epinephrine 0.01 MG/ML / Lidocaine Hydrochloride 10 MG/ML Injectable Solution 30 mL, Route: SUB-Q, Drug Form: INJ, Dosing Weight 107.7, kg, ONCE, Start date: 01/10/18 7:25:00 CDT, Stop date: 01/10/18 7:25:00 CDTNotes: (Same as: Xylocaine w/Epinephrine) Inactive 01/10/2018 [facility] leflunomide 10 mg, 1 tab, Route: PO, Drug form: TAB, Bedtime, Dosing Weight 107.7, kg, Start date: 01/08/18 21:00:00 CDT, Duration: 30 day, Stop date: 02/06/18 21:00:00 CDTNotes: (Same as: Arava) No Longer Active 01/09/2018 [facility] pantoprazole 40 mg, 1 tab, Route: PO, Drug form: ECTAB, BID-Before Meals, Dosing Weight 107.7, kg, Start date: 01/08/18 16:30:00 CDT, Duration: 30 day, Stop date: 02/07/18 7:30:00 CDTNotes: Tablet should not be c hewed or crushed. (Same as: Protonix) Inactive 01/08/2018 [facility] Prevacid 30 mg, 10 mL, Route: NG, Drug form: SUSP, BID- Before Meals, Start date: 01/08/18 16:30:00 CDT, Duration: 30 day, Stop date: 02/07/18 7:30:00 CDTNotes: Take 1 hour before or 2 hours after meal; Expires in 14 days. Shake well before use. (Same as:Prevacid) Compounded Product - formulation not commercially available No Longer Active 01/08/2018 [facility] Carafate 1 gm, 1 tab, Route: PO, Drug form: TAB, QID-Before Meals, Dosing Weight 107.7, kg, Start date: 01/08/18 11:30:00 CDT, Duration: 30 day, Stop date: 02/07/18 7:30:00 CDT No Longer Active 01/08/2018 [facility] Furosemide 20 MG Oral Tablet 20 mg, 1 tab, Route: PO, Drug form: TAB, Q12H, Dosing Weight 107.7, kg, Start date: 01/08/18 10:24:00 CDT, Duration: 30 day, Stop date: 02/07/18 9:00:00 CDTNotes: (Same as: Lasix) May cause GI upset. Give with food or milk. No Longer Active 01/08/2018 [facility] Albuterol 0.83 MG/ML Inhalant Solution 2.49 mg, 3 mL, Route: NEB, Drug form: SOLN, PRN, Dosing Weight 107.7, kg, PRN Respiratory Pathway, Start date: 01/08/18 10:21:00 CDT, Duration: 30 day, Stop date: 02/07/18 10:20:00 CDTNotes: SEE RT DOCUMENTATION (Same as: Proventil) No Longer Active 01/08/2018 [facility] Mupirocin 1 appl, Route: NASAL, Q12H, Drug form: OINT, Start date: 01/08/18 9:00:00 CDT, Duration: 5 day, Stop date: 01/12/18 21:00:00 CDT, MRSA Decolonization No Longer Active 01/08/2018 [facility] Famotidine 20 mg, 2 mL, Route: IVP, Drug form: INJ, Q12H, Dosing Weight 107.7, kg, Start date: 01/08/18 9:00:00 CDT, Duration: 30 day, Stop date: 02/06/18 21:00:00 CDTNotes: (Same as: Pepcid) Can be dilute in 5-10cc NS IVP: Slow IV push over at least 2 minutes. Inactive 01/08/2018 [facility] chlorhexidine gluconate 1.2 MG/ML Mouthwash 15 mL, Route: Swab Mouth, Q12H, Drug form: LIQ, Start date: 01/07/18 21:00:00 CDT, Duration: 30 day, Stop date: 02/06/18 9:00:00 CDTNotes: (Same As: Peridex) No Longer Active 01/08/2018 [facility] heparin 5,000 unit, 1 mL, Route: SUB-Q, Drug form: INJ, Q12H, Dosing Weight 107.7, kg, Start date: 01/07/18 21:00:00 CDT, Duration: 30 day, Stop date: 02/06/18 9:00:00 CDTNotes: porcine heparin No Longer Active 01/08/2018 [facility] Famotidine 20 mg, Route: IVPB, Q12H, Dosing Weight 107.7, kg, Start date: 01/07/18 21:00:00 CDT, Duration: 30 day, Stop date: 02/06/18 9:00:00 CDT Inactive 01/08/2018 [facility] ocular lubricant 1 appl, Route: BOTH EYES, Q6H, Drug form: OINT, Start date: 01/07/18 18:00:00 CDT, Duration: 30 day, Stop date: 02/06/18 12:00:00 CDTNotes: (mineral oil/petrolatum,white 3.5 gm oph OIN) (Same as:Hypo tears) No Longer Active 01/07/2018 [facility] chlorhexidine gluconate 1.2 MG/ML Mouthwash 15 mL, Route: Swab Mouth, PRN, Drug form: LIQ, PRN Other -See Comment, Start date: 01/07/18 16:03:00 CDT, Duration: 30 day, Stop date: 02/06/18 16:02:00 CDTNotes: (Same As: Peridex) No Longer Active 01/07/2018 [facility] chlorhexidine gluconate 1.2 MG/ML Mouthwash 15 mL, Route: Swab Mouth, PRN, PRN Other -See Comment, Start date: 01/07/18 16:02:00 CDT, Duration: 30 day, Stop date: 02/06/18 16:01:00 CDT Inactive 01/07/2018 [facility] Midazolam 50 mg, 50 mL, Rate: Titrate, Start Dose: 1 mg/hr, Titration: Rebolus 1 mg IV and/or Titrate infusion by 1 mg/hour every 30 minutes, Goal(s): -2, Max Dose: 10 mg/hr, Route: IV, Dosing Weight 107.7 kg, To mana Volume: 50, Start date: 01/07/18 11:25:00 CDT...Notes: (Same as: Versed) No Longer Active 01/07/2018 [facility] Fentanyl 1,250 microgram, 250 mL, Rate: Titrate, Start Dose: 50 microgram/hr, Titration: 25 microgram/hour every 15 minutes, Goal(s): - 2, Max Dose: 300 microgram/hr, Route: IV, Dosing Weight 107.7 kg, Total Volume: 250, Start date: 01/07/18 11:25:00 CDT, Durat...Notes: Concentration: 5 microgram / ml No Longer Active 01/07/2018 [facility] methylPREDNISolone SODium SUCCinate 20 mg, 0.5 mL, Route: IV, Drug form: INJ, Daily, Dosing Weight 107.7, kg, Start date: 01/07/18 9:00:00 CDT, Duration: 30 day, Stop date: 02/05/18 9:00:00 CDTNotes: (Same as:Solu-MEDROL, A-Methapred) No Longer Active 01/07/2018 [facility] Rocephin 1 gm, Route: IV, [id number], Dosing Weight 107.7, kg, Start date: 01/07/18 7:00:00 CDT, Duration: 30 day, Stop date: 02/05/18 7:00:00 CDT, ABX Indication: Other (specify in Comments)Notes: (Same As: Roceph in). Use with 100 mL NS and infuse over 30 min MEDICATION WASTE Product Size: 1000 mg Product Wasted: ___ mg No Longer Active 01/07/2018 [facility] Rocephin + sterile water 10 mL 1 gm, Route: IV, [id number], Dosing Weight 107.7, kg, Start date: 01/07/18 7:00:00 CDT, Duration: 30 day, Stop date: 02/05/18 7:00:00 CDT, ABX Indication: Other (specify in Comments)Notes: (Same As: Rocephin). Use with 100 mL NS and infuse over 30 min MEDICATION WASTE Product Size: 1000 mg Product Wasted: ___ mg No Longer Active 01/07/2018 [facility] Nurse pls update Height/Weight/Allergies in adhoc Nurse pls update Height/Weight/Allergies in adhoc, REMINDER, Drug form: MISC, Route: MISC, Q15Min, 01/07/18 6:15:00 CDT, Duration: 1 day, Stop date: 01/08/18 6:00:00 CDT Inactive 01/07/2018 [facility] leflunomide 10 mg oral tablet 10 mg=1 tab, PO, Bedtime, Daily, 0 Refill(s) No Longer Active 01/07/2018 [facility] Vitamin D3 0 Refill(s) No Longer Active 01/07/2018 [facility] multivitamin Daily, 0 Refill(s) No Longer Active 01/07/2018 [facility] Albuterol 0.833 MG/ML / Ipratropium [place] 0.167 MG/ML Inhalant Solution 3 mL, Route: NEB, Drug Form: SOLN, Dosing Weight 107.2, kg, ONCE, STAT, Start date: 01/07/18 1:33:00 CDT, Stop date: 01/07/18 1:33:00 CDT Inactive 01/07/2018 [facility] Racepinephrine 0.5 mL, Route: NEB, Dosing Weight 107.2, kg, ONCE, STAT, Start date: 01/07/18 1:33:00 CDT, Stop date: 01/07/18 1:33:00 CDT Inactive 01/07/2018 [facility] Saline Flush 0.9% 10 mL, Route: IVP, Drug Form: INJ, Dosing Weight 107.2, kg, PRN, PRN Line Flush, Start date: 01/07/18 1:33:00 CDT, Duration: 30 day, Stop date: 02/06/18 1:32:00 CDTNotes: (Same as: BD Posiflush) Inactive 01/07/2018 [facility] methylPREDNISolone SODium SUCCinate 125 mg, 2 mL, Route: IVP, Drug form: INJ, ONCE, Dosing Weight 107.2, kg, Priority: STAT, Start date: 01/07/18 1:33:00 CDT, Stop date: 01/07/18 1:33:00 CDTNotes: (Same as:Solu- MEDROL, A-Methapred) Inactive 01/07/2018 [facility] Racepinephrine 22.5 MG/ML Inhalant Solution 0.5 mL, Route: NEB, Dosing Weight 107.2, kg, ONCE, STAT, Start date: 01/07/18 1:29:00 CDT, Stop date: 01/07/18 1:29:00 CDT Inactive 01/07/2018 [facility] amoxicillin 500 mg oral capsule 1,000 mg=2 cap, PO, BID, X 10 day, # 40 cap, 0 Refill(s), Pharmacy: [facility] [facility] [id number] Active 12/15/2017 [facility] Sucralfate 1000 MG Oral Tablet [Carafate] 1 gm=1 tab, PO, QID, # 120 tab, 0 Refill(s), Pharmacy: [place] [id number] Active 12/15/2017 [facility] pantoprazole 40 mg oral enteric coated tablet 40 mg=1 tab, PO, BID, # 60 tab, 0 Refill(s), Pharmacy: [facility] [id number] Active 12/15/2017 [facility] clarithromycin 250 mg oral tablet 500 mg=2 tab, PO, Q12H, X 10 day, # 40 tab, 0 Refill(s), Pharmacy: [facility] [id number] Active 12/15/2017 [facility] pantoprazole 40 mg, Route: IVP, Drug form: INJ, Q12H, Dosing Weight 113.636, kg, Start date: 12/15/17 9:00:00 CDT, Duration: 30 day, Stop date: 01/13/18 21:00:00 CDTNotes: For IV push reconstitute with 10 ml 0.9% so dium chloride and push over 2 minutes. (Same as: Protonix) No Longer Active 12/15/2017 [facility] Clarithromycin 500 mg, 2 tab, Route: PO, Drug form: TAB, Q12H, Dosing Weight 107.2, kg, Start date: 12/14/17 21:00:00 CDT, Stop date: 12/24/17 9:00:00 CDTNotes: (Same As: Biaxin) No Longer Active 12/15/2017 [facility] Protonix 40 mg, 1 tab, Route: PO, Drug form: ECTAB, BID, Dosing Weight 107.2, kg, Start date: 12/14/17 17:00:00 CDT, Duration: 30 day, Stop date: 01/13/18 9:00:00 CDTNotes: Tablet should not be chewed or crushed. (Same as: Protonix) No Longer Active 12/14/2017 [facility] Clarithromycin 500 mg, 2 tab, Route: PO, Drug form: TAB, Q12H, Dosing Weight 107.2, kg, Start date: 12/14/17 17:00:00 CDT, Stop date: 12/24/17 9:00:00 CDTNotes: (Same As: Biaxin) Inactive 12/14/2017 [facility] Amoxicillin 1,000 mg, 2 cap, Route: PO, Drug form: CAP, BID, Dosing Weight 107.2, kg, Start date: 12/14/17 17:00:00 CDT, Duration: 10 day, Stop date: 12/24/17 9:00:00 CDTNotes: (Same as: Amoxil) No Longer Active 12/14/2017 [facility] Solu-Medrol 40 mg, 1 mL, Route: IV, Drug form: INJ, Q6Hnow, Dosing Weight 107.2, kg, Priority: NOW, Start date: 12/12/17 20:52:00 CDT, Duration: 30 day, Stop date: 01/11/18 14:52:00 CDTNotes: (Same as:Solu-MEDROL, A-Methapred) No Longer Active 12/13/2017 [facility] tramadol hydrochloride 50 MG Oral Tablet 50 mg, 1 tab, Route: PO, Drug form: TAB, Q4H, Dosing Weight 107.2, kg, PRN Pain Score 4-6, Start date: 12/12/17 20:52:00 CDT, Duration: 30 day, Stop date: 01/11/18 20:51:00 CDTNotes: Not to exceed 400mg/day. (Same As: Ultram) No Longer Active 12/13/2017 [facility] Protonix 40 mg, Route: IVP, Drug form: INJ, BID, Dosing Weight 107.2, kg, Start date: 12/12/17 17:00:00 CDT, Duration: 30 day, Stop date: 01/11/18 9:00:00 CDTNotes: For IV push reconstitute with 10 ml 0.9% sodium chloride and push over 2 minutes. (Same as: Protonix) No Longer Active 12/12/2017 [facility] Sucralfate 100 MG/ML Oral Suspension [Carafate] 1 [...] (Same As: Carafate) No Longer Active 12/12/2017 [facility] sodium phosphate 15 mmol, 5 mL, Route: IVPB, PRN, Dosing Weight 113.636, kg, PRN Abnormal Lab Result, Start date: 12/12/17 2:17:00 CDT, Duration: 30 day, Stop date: 01/11/18 2:16:00 CDT, FOR ICU USE ONLY No Longer Active 12/12/2017 [facility] Potassium Chloride 20 mEq, 15 mL, Route: NJ, Drug form: LIQ, PRN, Dosing Weight 113.636, kg, PRN Abnormal Lab Result, Start date: 12/12/17 2:17:00 CDT, Duration: 30 day, Stop date: 01/11/18 2:16:00 CDT, FOR ICU USE ONLYNotes: (Same as: Potassium Chloride) No Longer Active 12/12/2017 [facility] Calcium Carbonate 500 MG Chewable Tablet 500 mg, 1 tab, Route: PO, Drug form: CHEWTAB, PRN, Dosing Weight 113.636, kg, PRN Abnormal Lab Result, FOR ICU USE ONLY, Start date: 12/12/17 2:17:00 CDT, Duration: 30 day, Stop date: 01/11/18 2:16:00 CDTNotes: (Same As: Tums) Calcium Carbonate 500 [id number] mg elemental calcium Dose= mg calcium carbonate ( mg elemental calcium) No Longer Active 12/12/2017 [facility] Calcium Gluconate 1 gm, 50 mL, Route: IVPB, Drug form: INJ, PRN, Dosing Weight 113.636, kg, PRN Abnormal Lab Result, Start date: 12/12/17 2:17:00 CDT, Duration: 30 day, Stop date: 01/11/18 2:16:00 CDT, FOR ICU USE ONLYNotes: WASTE: F/P - Sink; E - Municipal Trash Bin No Longer Active 12/12/2017 [facility] Magnesium Sulfate 2 gm, 50 mL, Route: IVPB, Drug form: INJ, PRN, Dosing Weight 113.636, kg, PRN Abnormal Lab Result, Start date: 12/12/17 2:17:00 CDT, Duration: 30 day, Stop date: 01/11/18 2:16:00 CDT, FOR ICU USE ONLYNotes: WASTE: F/P - Sink; E - Municipal Trash Bin No Longer Active 12/12/2017 [facility] Magnesium Oxide 800 mg, 2 tab, Route: PO, Drug form: TAB, PRN, Dosing Weight 113.636, kg, PRN Abnormal Lab Result, FOR ICU USE ONLY, Start date: 12/12/17 2:17:00 CDT, Duration: 30 day, Stop date: 01/11/18 2:16:00 CDTNotes: (Same as: Mag-Ox 400) Magnesium oxide [id number] elemental magnesium Dose=____mg magnesium oxide (___mg elemental magnesium) No Longer Active 12/12/2017 [facility] potassium phosphate 45 mmol, 15 mL, Route: IVPB, PRN, Dosing Weight 113.636, kg, PRN Abnormal Lab Result, Start date: 12/12/17 2:17:00 CDT, Duration: 30 day, Stop date: 01/11/18 2:16:00 CDT, FOR ICU USE ONLYNotes: (Same as: K Phosphate.) 1 mMol phoshate has 1.47 mEq potassium Infuse over 4 hours No Longer Active 12/12/2017 [facility] potassium phosphate-sodium phosphate 250 mg-280 mg-160 mg oral powder for reconstitution 2 pkt, Route: PO, Drug Form: PDR/REC, Dosing Weight 113.636, kg, PRN, PRN Abnormal Lab Result, FOR ICU USE ONLY, Start date: 12/12/17 2:17:00 CDT, Duration: 30 day, Stop date: 01/11/18 2:16:00 CDTNotes: (Same as: Phos-NaK) Each 1.5 gm pkt has 250mg phosphorous. Mix w/2.5oz water and stir. No Longer Active 12/12/2017 [facility] potassium phosphate 18 mmol, 6 mL, Route: IVPB, ONCE, Dosing Weight 113.636, kg, Start date: 12/12/17 2:13:00 CDT, Stop date: 12/12/17 2:13:00 CDTNotes: (Same as: K Phosphate.) 1 mMol phoshate has 1.47 mEq potassium Infuse over 4 hours Inactive 12/12/2017 [facility] pantoprazole 80 mg + Sodium Chloride 0.9% IV 100 mL 100 mL, Rate: 10 ml/hr, Infuse over: 10 hr, Route: IVPB, Dosing Weight 113.636 kg, Total Volume: 100, Infuse at 8 mg / hr for 72 hours for GI bleeding, Start date: 12/12/17 1:13:00 CDT, Duration: 72 hr, Stop date: 12/15/17 1:12:00 CDT, 2.38, m2 Inactive 12/12/2017 [facility] Azithromycin 500 mg, Route: IVPB, ONCE, Dosing Weight 113.636, kg, Priority: STAT, Start date: 12/12/17 1:07:00 CDT, Stop date: 12/12/17 1:07:00 CDT, ABX Indication: PneumoniaNotes: (Same As: Zithromax IV) Inactive 12/12/2017 [facility] Ceftriaxone 1 gm, Route: IVPB, Drug form: PDR/INJ, ONCE, Dosing Weight 113.636, kg, Priority: STAT, Start date: 12/12/17 1:07:00 CDT, Stop date: 12/12/17 1:07:00 CDT, ABX Indication: Pneumonia Inactive 12/12/2017 [facility] Hurricaine Route: TOP, ONCE, Drug form: SPRY, Start date: 12/11/17 22:26:00 CDT, Stop date: 12/11/17 22:26:00 CDTNotes: (Same As: Hurricaine) WASTE: F/P - Black; E - Municipal Trash Bin FOR ORAL USE No Longer Active 12/12/2017 [facility] Protonix 40 mg, Route: IVP, Drug form: INJ, ONCE, Dosing Weight 113.636, kg, Priority: STAT, Start date: 12/11/17 22:23:00 CDT, Stop date: 12/11/17 22:23:00 CDTNotes: For IV push reconstitute with 10 ml 0.9% sod ium chloride and push over 2 minutes. (Same as: Protonix) No Longer Active 12/12/2017 [facility] Lidocaine 5 mL, Route: NEB, Drug Form: INJ, Dosing Weight 113.636, kg, ONCE, Start date: 12/11/17 22:21:00 CDT, Stop date: 12/11/17 22:21:00 CDTNotes: (Same as: Xylocaine) Inactive 12/12/2017 [facility] Saline Flush 0.9% 10 mL, Route: IVP, Drug Form: INJ, Dosing Weight 113.636, kg, PRN, PRN Line Flush, Start date: 12/11/17 21:19:00 CDT, Duration: 30 day, Stop date: 01/10/18 21:18:00 CDTNotes: (Same as: BD Posiflush) No Longer Active 12/12/2017 [facility] MethylPREDNISolone Dose Pack 4 mg oral tablet See Instructions, PO, Daily, Use as directed on label., # 1 Pack, 0 Refill(s), Pharmacy: [facility] [id number] Active 12/07/2017 [facility] Methylprednisolone 4 mg, 1 tab, Route: PO, Drug form: TAB, Daily, Dosing Weight 109.091, kg, Start date: 12/07/17 9:00:00 CDT, Duration: 30 day, Stop date: 01/05/18 9:00:00 CDTNotes: (Same as :Medrol) Take with food Inactive 12/07/2017 [facility] Lovenox 40 mg, 0.4 mL, Route: SUB-Q, Drug form: INJ, [id number], Dosing Weight 109.091, kg, Start date: 12/07/17 9:00:00 CDT, Duration: 30 day, Stop date: 01/05/18 9:00:00 CDTNotes: (Same as: Lovenox) Inactive 12/07/2017 [facility] Albuterol 0.833 MG/ML / Ipratropium [place] 0.167 MG/ML Inhalant Solution [DuoNeb] 3 mL, Route: NEB, Drug Form: SOLN, Dosing Weight 113.636, kg, RQID, Start date: 12/07/17 7:00:00 CDT, Duration: 30 day, Stop date: 01/05/18 19:00:00 CDTNotes: (Same as: Duoneb) Inactive 12/07/2017 [facility] Tessalon Perles 100 mg, 1 cap, Route: PO, Drug form: CAP, TID, Dosing Weight 109.091, kg, PRN Cough, Start date: 12/07/17 0:04:00 CDT, Duration: 30 day, Stop date: 01/06/18 0:03:00 CDTNotes: (Same As: Tessalon Perle s) "Do Not Crush" Inactive 12/07/2017 [facility] Levaquin 750 mg, 150 mL, Route: IVPB, Drug form: SOLN, [id number], Dosing Weight 113.636, kg, Start date: 12/07/17 0:00:00 CDT, Duration: 5 day, Stop date: 12/11/17 0:00:00 CDT, ABX Indication: PneumoniaNotes: (Same as:Levaquin) Inactive 12/07/2017 [facility] MethylPREDNISolone Dose Pack 4 mg oral tablet 4 mg, PO, Daily, 0 Refill(s) Inactive 12/07/2017 [facility] NS 1,000 mL 1,000 mL, Rate: 75 ml/hr, Infuse over: 13.3 hr, Route: IV, Dosing Weight 113.636 kg, Total Volume: 1,000, Start date: 12/06/17 23:37:00 CDT, Duration: 30 day, Stop date: 01/05/18 23:36:00 CDT, 2.38, m2 No Longer Active 12/07/2017 [facility] Ondansetron 4 mg, 2 mL, Route: IVP, Drug form: INJ, Q6H, Dosing Weight 113.636, kg, PRN Nausea & Vomiting, Start date: 12/06/17 23:35:00 CDT, Duration: 30 day, Stop date: 01/05/18 23:34:00 CDTNotes: (Same as: Sandy) MEDICATION WASTE Product Size: 4 mg Product Wasted: ___ mg No Longer Active 12/07/2017 [facility] Acetaminophen 325 MG / Hydrocodone Bitartrate 5 MG Oral Tablet 1 tab, Route: PO, Drug Form: TAB, Dosing Weight 113.636, kg, Q4H, PRN Pain Score 4-6, Start date: 12/06/17 23:35:00 CDT, Duration: 30 day, Stop date: 01/05/18 23:34:00 CDTNotes: (Same as: [employer] 325/5) Do not exceed 4gm/day of acetaminophen. No Longer Active 12/07/2017 [facility] Acetaminophen 650 mg, 2 tab, Route: PO, Drug form: TAB, Q4H, Dosing Weight 113.636, kg, PRN Pain 1-3/Temp > 100.4 F, Start date: 12/06/17 23:35:00 CDT, Duration: 30 day, Stop date: 01/05/18 23:34:00 CDTNotes: Do not exceed 4 gm/day. (Same as: Tylenol) No Longer Active 12/07/2017 [facility] Dexamethasone 10 mg, 2.5 mL, Route: IM, Drug form: INJ, ONCE, Dosing Weight 113.636, kg, Priority: STAT, Start date: 12/06/17 14:10:00 CDT, Stop date: 12/06/17 14:10:00 CDT Inactive 12/06/2017 [facility] Albuterol 0.833 MG/ML / Ipratropium [place] 0.167 MG/ML Inhalant Solution [DuoNeb] 3 ml, Route: NEB, Drug Form: SOLN, Dosing Weight 113.636, kg, PRN, PRN Respiratory Pathway, Start date: 12/06/17 14:09:00 CDT, Duration: 30 day, Stop date: 01/05/18 14:08:00 CDTNotes: (Same as: Duoneb) No Longer Active 12/06/2017 [facility] Levofloxacin 750 MG Oral Tablet [Levaquin] 750 mg=1 tab, PO, Daily, X 5 day, # 5 tab, 0 Refill(s) Active 10/16/2017 [facility] albuterol 90 mcg/inh inhalation aerosol 2 puff, INHALATION, QID, # 17 gm, 0 Refill(s) Active 10/16/2017 [facility] Levofloxacin 750 mg, 150 mL, Route: IVPB, Drug form: SOLN, ONCE, Dosing Weight 113.636, kg, Start date: 10/16/17 11:05:00 CDT, Stop date: 10/16/17 11:05:00 CDT, ABX Indication: PneumoniaNotes: (Same as:Levaquin) Inactive 10/16/2017 [facility] methylPREDNISolone SODium SUCCinate 125 mg, 2 mL, Route: IVP, Drug form: INJ, ONCE, Dosing Weight 113.636, kg, Priority: STAT, Start date: 10/16/17 7:25:00 CDT, Stop date: 10/16/17 7:25:00 CDTNotes: (Same as:Solu- MEDROL, A-Methapred) Inactive 10/16/2017 [facility] Albuterol 0.833 MG/ML / Ipratropium [place] 0.167 MG/ML Inhalant Solution 3 mL, Route: NEB, Drug Form: SOLN, Dosing Weight 113.636, kg, ONCE, STAT, Start date: 10/16/17 7:25:00 CDT, Stop date: 10/16/17 7:25:00 CDTNotes: (Same as: Duoneb) Inactive 10/16/2017 [facility] Saline Flush 0.9% 10 mL, Route: IVP, Drug Form: INJ, Dosing Weight 113.636, kg, PRN, PRN Line Flush, Start date: 10/16/17 7:25:00 CDT, Duration: 30 day, Stop date: 11/15/17 7:24:00 CDTNotes: (Same as: BD Posiflush) Inactive 10/16/2017 [facility] Levofloxacin 500 MG Oral Tablet [Levaquin] 500 mg=1 tab, PO, Q24H, X 7 day, # 7 tab, 0 Refill(s) Active 07/03/2016 [facility] predniSONE 10 mg oral tablet 10 mg=1 tab, PO, Daily, X 30 day, # 30 tab, 0 Refill(s) Active 07/03/2016 [facility] Solu-Medrol 40 mg, 1 mL, Route: IVP, Drug form: INJ, Q8Hnow, Dosing Weight 115, kg, Start date: 07/02/16 6:00:00 SSIS ARCHITECT, Duration: 30 day, Stop date: 07/31/16 22:00:00 CSTNotes: (Same as:Solu-MEDROL, A-Methapred) No Longer Active 07/02/2016 [facility] Rocephin 1 gm, Route: IVPB, [id number], Dosing Weight 115, kg, Start date: 07/02/16 0:00:00 SSIS ARCHITECT, Duration: 30 day, Stop date: 07/31/16 0:00:00 CSTNotes: (Same As: Rocephin). Use with 100 mL NS and infuse over 30 m in MEDICATION WASTE Product Size: 1000 mg Product Wasted: ___ mg No Longer Active 07/02/2016 [facility] Azithromycin 500 MG Oral Tablet [Zithromax] 500 mg, 2 tab, Route: PO, Drug form: TAB, [id number], Dosing Weight 115, kg, Start date: 07/02/16 0:00:00 SSIS ARCHITECT, Duration: 30 day, Stop date: 07/31/16 0:00:00 CSTNotes: Take 1 hour before or 2 hours after meals. (Same As: Zithromax) No Longer Active 07/02/2016 [facility] Albuterol 0.833 MG/ML / Ipratropium [place] 0.167 MG/ML Inhalant Solution [DuoNeb] 3 ml, Route: NEB, Drug Form: SOLN, Dosing Weight 115, kg, PRN, PRN Respiratory Protocol, Start date: 07/01/16 23:37:00 SSIS ARCHITECT, Duration: 30 day, Stop date: 07/31/16 23:36:00 CSTNotes: (Same as: Duoneb) No Longer Active 07/02/2016 [facility] Levofloxacin 750 mg, 150 mL, Route: IVPB, Drug form: SOLN, ONCE, Dosing Weight 109.091, kg, Priority: STAT, Start date: 07/01/16 21:27:00 SSIS ARCHITECT, Stop date: 07/01/16 21:27:00 CSTNotes: (Same as:Levaquin) Inactive 07/02/2016 [facility] methylPREDNISolone SODium SUCCinate 125 mg, 2 mL, Route: IVP, Drug form: INJ, ONCE, Dosing Weight 109.091, kg, Priority: STAT, Start date: 07/01/16 21:08:00 SSIS ARCHITECT, Stop date: 07/01/16 21:08:00 CSTNotes: (Same as:Solu-MEDROL, A-Methapred) Inactive 07/02/2016 [facility] Albuterol 0.83 MG/ML Inhalant Solution 2.49 mg, 3 mL, Route: NEB, Drug form: SOLN, ONCE, Dosing Weight 109.091, kg, Priority: STAT, Start date: 07/01/16 21:08:00 SSIS ARCHITECT, Stop date: 07/01/16 21:08:00 CSTNotes: SEE RT DOCUMENTATION (Same as: Proventil) Inactive 07/02/2016 [facility] Albuterol 0.833 MG/ML / Ipratropium [place] 0.167 MG/ML Inhalant Solution 3 mL, Route: NEB, Drug Form: SOLN, Dosing Weight 109.091, kg, ONCE, STAT, Start date: 07/01/16 21:08:00 SSIS ARCHITECT, Stop date: 07/01/16 21:08:00 CSTNotes: (Same as: Duoneb) Inactive 07/02/2016 [facility] Saline Flush 0.9% 10 mL, Route: IVP, Drug Form: INJ, Dosing Weight 109.091, kg, PRN, PRN Line Flush, Start date: 07/01/16 21:08:00 SSIS ARCHITECT, Duration: 30 day, Stop date: 07/31/16 21:07:00 CSTNotes: (Same as: BD Posiflush) No Longer Active 07/02/2016 [facility] Sodium Chloride 0.154 MEQ/ML Injectable Solution 1,000 mL, 1000 ml/hr, Infuse Over: 1 hr, Route: IV, 1,000, Drug form: INJ, ONCE, Priority: STAT, Dosing Weight 109.091 kg, Start date: 07/01/16 21:08:00 SSIS ARCHITECT, Duration: 1 doses or times, Stop date: 07/01/16 21:08:00 SSIS ARCHITECT Inactive 07/02/2016 [facility] Medrol 4 mg oral tablet 4 mg=1 tab, PO, Daily, # 10 tab, 0 Refill(s) No Longer Active 07/02/2016 [facility] Saline Flush 0.9% 10 mL, Route: IVP, Drug Form: INJ, Dosing Weight 115.455, kg, PRN, PRN Line Flush, Start date: 07/01/16 20:09:00 SSIS ARCHITECT, Duration: 30 day, Stop date: 07/31/16 20:08:00 CSTNotes: (Same as: BD Posiflush) No Longer Active 07/02/2016 [facility] tramadol hydrochloride 50 MG Oral Tablet 50 mg=1 tab, PO, BID, X 15 day, # 30 tab, 0 Refill(s) Active 04/11/2016 [facility] predniSONE 10 mg oral tablet See Special Instructions, PO, Daily, 16 day regimen: 1st week - 40 mg (4 tabs) daily x 4 days, 2nd week - 30 mg (3 tabs) daily x 4 days, 3rd week - 20 mg (2 tabs) daily x 30 days, X 30 day, # 90 tab, 0 Refill(s) Active 04/11/2016 [facility] methylPREDNISolone SODium SUCCinate 125 mg, 2 mL, Route: IVP, Drug form: INJ, ONCE, Dosing Weight 115.455, kg, Priority: STAT, Start date: 04/11/16 14:14:00 CDT, Stop date: 04/11/16 14:14:00 CDTNotes: (Same as:Solu-MEDROL, A-Methapred) Inactive 04/11/2016 [facility] Saline Flush 0.9% 10 mL, Route: IVP, Drug Form: INJ, Dosing Weight 115.455, kg, PRN, PRN Line Flush, Start date: 04/11/16 12:12:00 CDT, Duration: 30 day, Stop date: 05/11/16 11:11:00 CSTNotes: Same as: BD Posiflush Sterile Inactive 04/11/2016 [facility] 24 HR Nicotine 0.583 MG/HR Transdermal Patch =1 patch, TOP, Daily, X 30 day, # 30 patch, 0 Refill(s) Active 03/21/2016 [facility] predniSONE 10 mg oral tablet See Special [...] X16 days, #42 Tabs, X... Active 03/21/2016 [facility] Levofloxacin 500 MG Oral Tablet [Levaquin] 500 mg=1 tab, PO, Q24H, X 7 day, # 7 tab, 0 Refill(s) Active 03/21/2016 [facility] Zosyn + sodium chloride 0.9% 100 ml ADV 100 mL 3.375 gm, Route: IVPB, [id number], Dosing Weight 111.818, kg, CrCl >=20 ml/min infuse over 4 hours, Start date: 03/21/16 0:00:00 CDT, Duration: 30 day, Stop date: 04/19/16 16:00:00 CDTNotes: (Same as: Zosyn) Dosing based on Piperacillin component Inactive 03/21/2016 [facility] Solu-Medrol 20 mg, 0.5 mL, Route: IVP, Drug form: INJ, Q12H, Dosing Weight 111.818, kg, Start date: 03/20/16 21:00:00 CDT, Duration: 30 day, Stop date: 04/19/16 9:00:00 CDTNotes: (Same as:Solu-MEDROL, A-Methapred) No Longer Active 03/21/2016 [facility] Saline Flush 0.9% 10 ml, Route: IVP, Drug Form: INJ, Dosing Weight 112.727, kg, PRN, PRN Line Flush, Start date: 03/20/16 19:56:00 CDT, Duration: 30 day, Stop date: 04/19/16 19:55:00 CDTNotes: (Same as: BD Posiflush) No Longer Active 03/21/2016 [facility] Sodium Chloride 0.154 MEQ/ML Injectable Solution 1,000 mL, Rate: 125 ml/hr, Infuse over: 8 hr, Route: IV, Dosing Weight 112.727 kg, Total Volume: 1,000, Start date: 03/20/16 19:56:00 CDT, Duration: 30 day, Stop date: 04/19/16 19:55:00 CDT No Longer Active 03/21/2016 [facility] Acetaminophen 325 MG / Hydrocodone Bitartrate 5 MG Oral Tablet 2 tab, Route: PO, Drug Form: TAB, Dosing Weight 112.727, kg, Q4H, PRN Pain Score 7-10, Start date: 03/20/16 19:56:00 CDT, Duration: 30 day, Stop date: 04/19/16 19:55:00 CDTNotes: (Same as: [employer] 325/5) Do not exceed 4gm/day of acetaminophen. No Longer Active 03/21/2016 [facility] Morphine 2 mg, 1 mL, Route: IVP, Drug form: INJ, Q4H, Dosing Weight 112.727, kg, PRN Pain Score 7-10, Start date: 03/20/16 19:56:00 CDT, Duration: 30 day, Stop date: 04/19/16 19:55:00 CDTNotes: (Same as:MORPhine Sulfate) No Longer Active 03/21/2016 [facility] Zosyn 3.375 gm, Route: IVPB, [id number], Dosing Weight 111.818, kg, CrCl >=20 ml/min infuse over 4 hours, Start date: 03/20/16 18:00:00 CDT, Duration: 30 day, Stop date: 04/19/16 10:00:00 CDTNotes: (Same as: Zosyn) Dosing based on Piperacillin component Inactive 03/20/2016 [facility] Enoxaparin 40 mg, 0.4 mL, Route: SUB-Q, Drug form: INJ, [id number], Dosing Weight 111.818, kg, Start date: 03/20/16 18:00:00 CDT, Duration: 30 day, Stop date: 04/18/16 18:00:00 CDTNotes: (Same as: Lovenox) No Longer Active 03/20/2016 [facility] Tramadol 50 mg, 1 tab, Route: PO, Drug form: TAB, Q6H, Dosing Weight 111.818, kg, PRN Pain Score 1-5, Start date: 03/20/16 17:14:00 CDT, Duration: 30 day, Stop date: 04/19/16 17:13:00 CDTNotes: Not to exceed 400mg/day. (Same As: Ultram) No Longer Active 03/20/2016 [facility] Insulin, Aspart, Human 3 unit, 0.03 mL, [...] days from Date No Longer Active 03/20/2016 [facility] Dextrose 50% Syringe 12.5 gm, 25 mL, Route: IVP, Drug Form: INJ, Dosing Weight 111.818, kg, PRN, PRN Blood Glucose Results, Start date: 03/20/16 17:12:00 CDT, Duration: 30 day, Stop date: 04/19/16 17:11:00 CDT No Longer Active 03/20/2016 [facility] Glucagon 1 mg, Route: IM, Drug form: PDR/INJ, PRN, Dosing Weight 111.818, kg, PRN Blood Glucose Results, Start date: 03/20/16 17:12:00 CDT, Duration: 30 day, Stop date: 04/19/16 17:11:00 CDT No Longer Active 03/20/2016 [facility] Vancomycin 1,000 mg, Route: IVPB, Drug form: INJ, ONCE, Dosing Weight 111.818, kg, Priority: STAT, Start date: 03/20/16 15:43:00 CDT, Stop date: 03/20/16 15:43:00 CDT Inactive 03/20/2016 [facility] Zosyn 3.375 gm, Route: IVPB, ONCE, Dosing Weight 111.818, kg, Priority: STAT, Start date: 03/20/16 15:43:00 CDT, Stop date: 03/20/16 15:43:00 CDT Inactive 03/20/2016 [facility] Tessalon Perles 100 mg, Route: PO, ONCE, Dosing Weight 111.818, kg, Start date: 03/20/16 13:37:00 CDT, Stop date: 03/20/16 13:37:00 CDT Inactive 03/20/2016 [facility] Acetaminophen 325 MG / Hydrocodone Bitartrate 5 MG Oral Tablet 1 tab, Route: PO, Dosing Weight 111.818, kg, ONCE, STAT, Start date: 03/20/16 13:34:00 CDT, Stop date: 03/20/16 13:34:00 CDT Inactive 03/20/2016 [facility] Saline Flush 0.9% 10 mL, Route: IVP, Drug Form: INJ, Dosing Weight 111.818, kg, PRN, PRN Line Flush, Start date: 03/20/16 13:34:00 CDT, Duration: 30 day, Stop date: 04/19/16 13:33:00 CDTNotes: (Same as: BD Posiflush) Inactive 03/20/2016 [facility] Furosemide 40 mg, Route: PO, Drug form: TAB, ONCE, Dosing Weight 115.09, kg, Start date: 02/08/16 12:51:00 CDT, Stop date: 02/08/16 12:51:00 CDT Inactive 02/08/2016 [facility] Lasix 40 mg, 4 mL, Route: IVP, Drug form: INJ, ONCE, Dosing Weight 115.09, kg, Start date: 02/08/16 12:43:00 CDT, Stop date: 02/08/16 12:43:00 CDTNotes: (Same as: Lasix) MEDICATION WASTE Product Size: 40 mg Product Wasted: ___ mg Inactive 02/08/2016 [facility] pneumococcal capsular polysaccharide type 1 vaccine / pneumococcal capsular polysaccharide type 10A vaccine / pneumococcal capsular polysaccharide type 11A vaccine / pneumococcal capsular polysaccharide type 12F vaccine / pneumococcal capsular polysacchar 0.5 mL, Route: IM, Drug Form: INJ, Daily, Start date: 02/08/16 12:00:00 CDT, Stop date: 02/09/16 17:00:00 CDTNotes: (Same as: Pneumovax 23) Refrigerate Inactive 02/08/2016 [facility] Levofloxacin 500 MG Oral Tablet [Levaquin] 500 mg=1 tab, PO, Q24H, X 14 day, # 14 tab, 0 Refill(s) Active 02/08/2016 [facility] Dilaudid 1 mg, 1 mL, Route: IV, Drug form: INJ, Q6H, Dosing Weight 115.09, kg, PRN Pain Score 7-10, Start date: 02/06/16 19:08:00 CDT, Duration: 30 day, Stop date: 03/07/16 19:07:00 CDT No Longer Active 02/07/2016 [facility] Ceftriaxone 1 gm, Route: IVPB, [id number], Dosing Weight 115.909, kg, Priority: Routine, Start date: 02/05/16 5:00:00 CDT, Duration: 30 day, Stop date: 03/05/16 5:00:00 CDTNotes: (Same As: Rocephin). Use with 100 mL NS and infuse over 30 min MEDICATION WASTE Product Size: 1000 mg Product Wasted: ___ mg No Longer Active 02/05/2016 [facility] Vancomycin 1,000 mg, Route: IVPB, [id number], Dosing Weight 115.09, kg, Start date: 02/04/16 20:00:00 CDT, Duration: 30 day, Stop date: 03/04/16 20:00:00 CDTNotes: TIME CRITICAL MEDICATION (Same As: Vancocin) Infusi on rate 2001 mg: infuse over 2.5 hours MEDICATION WASTE Product Size: 1000 mg Product Wasted: ___ mg No Longer Active 02/05/2016 [facility] Zosyn 3.375 gm, Route: IVPB, ABXQ8H, Dosing Weight 115.09, kg, CrCl >=20 ml/min infuse over 4 hours, Start date: 02/04/16 20:00:00 CDT, Duration: 30 day, Stop date: 03/05/16 12:00:00 CDTNotes: (Same as: Zosyn) Dosing based on Piperacillin component No Longer Active 02/05/2016 [facility] Enoxaparin 40 mg, 0.4 mL, Route: SUB-Q, Drug form: INJ, [id number], Dosing Weight 115.09, kg, Start date: 02/04/16 11:00:00 CDT, Duration: 30 day, Stop date: 03/04/16 11:00:00 CDTNotes: (Same as: Lovenox) No Longer Active 02/04/2016 [facility] Morphine 2 mg, 1 mL, Route: IVP, Drug form: INJ, Q4H, Dosing Weight 115.09, kg, PRN Pain Score 6-10, Start date: 02/04/16 10:38:00 CDT, Duration: 30 day, Stop date: 03/05/16 10:37:00 CDTNotes: (Same as:MORPhine Sulfate) No Longer Active 02/04/2016 [facility] Tessalon Perles 100 mg, 1 cap, Route: PO, Drug form: CAP, TID, Dosing Weight 115.09, kg, PRN Cough, Start date: 02/04/16 10:36:00 CDT, Duration: 30 day, Stop date: 03/05/16 10:35:00 CDTNotes: (Same As: Tessalon Riley es) "Do Not Crush" No Longer Active 02/04/2016 [facility] Robitussin-AC oral syrup 5 ml, Route: PO, Drug Form: LIQ, Dosing Weight 115.09, kg, Q4H, PRN Cough, Start date: 02/04/16 10:36:00 CDT, Duration: 30 day, Stop date: 03/05/16 10:35:00 CDTNotes: (Same As: Robitussin AC) No Longer Active 02/04/2016 [facility] dextromethorphan-guaiFENesin 10 mg-100 mg/5 mL oral liquid 10 ml, Route: PO, Drug Form: SYRP, Dosing Weight 115.09, kg, Q4H, PRN Cough, Start date: 02/04/16 10:36:00 CDT, Duration: 30 day, Stop date: 03/05/16 10:35:00 CDTNotes: (dextromethorphan-guaifenesin 10-100mg/5ml 10 ml oral SOLN ud) (Same as: Robitussin DM) No Longer Active 02/04/2016 [facility] Tramadol 50 mg, 1 tab, Route: PO, Drug form: TAB, Q6H, Dosing Weight 115.09, kg, PRN Pain Score 4-6, Start date: 02/04/16 10:36:00 CDT, Duration: 30 day, Stop date: 03/05/16 10:35:00 CDTNotes: Not to exceed 4 00mg/day. (Same As: Ultram) No Longer Active 02/04/2016 [facility] Tylenol 650 mg, 2 tab, Route: PO, Drug form: TAB, Q6H, Dosing Weight 115.09, kg, PRN Pain 1-3/Temp > 100.4 F, Start date: 02/04/16 10:36:00 CDT, Duration: 30 day, Stop date: 03/05/16 10:35:00 CDTNotes: Do not exceed 4 gm/day. (Same as: Tylenol) No Longer Active 02/04/2016 [facility] Tramadol 50 mg, PO, Q4-6H, PRN Pain, # 20 tab, 0 Refill(s) Active 02/04/2016 [facility] Azithromycin 500 mg, Route: IVPB, [id number], Dosing Weight 115.909, kg, Priority: Routine, Start date: 02/04/16 7:00:00 CDT, Duration: 5 day, Stop date: 02/08/16 7:00:00 CDTNotes: (Same As: Zithromax IV) No Longer Active 02/04/2016 [facility] Acetaminophen 650 mg, 2 tab, Route: PO, Drug form: TAB, Q4H, Dosing Weight 115.909, kg, PRN Pain Score 1-3, For fever > 100.4. Not to exceed 4 grams in 24 hours, Start date: 02/04/16 6:36:00 CDT, Duration: 30 day, Stop date: 03/05/16 6:35:00 CDTNotes: Do not exceed 4 gm/day. (Same as: Tylenol) Inactive 02/04/2016 [facility] Ceftriaxone 1 gm, Route: IVPB, Drug form: PDR/INJ, ONCE, Dosing Weight 115.909, kg, Priority: STAT, Start date: 02/04/16 5:15:00 CDT, Stop date: 02/04/16 5:15:00 CDT Inactive 02/04/2016 [facility] Azithromycin 500 mg, Route: IVPB, ONCE, Dosing Weight 115.909, kg, Priority: STAT, Start date: 02/04/16 5:15:00 CDT, Stop date: 02/04/16 5:15:00 CDT Inactive 02/04/2016 [facility] Morphine 4 mg, Route: IVP, Drug form: INJ, ONCE, Dosing Weight 115.909, kg, Priority: STAT, Start date: 02/04/16 4:11:00 CDT, Stop date: 02/04/16 4:11:00 CDT Inactive 02/04/2016 [facility] Zofran 4 mg, Route: IVP, Drug form: INJ, ONCE, Dosing Weight 115.909, kg, Priority: STAT, Start date: 02/04/16 4:11:00 CDT, Stop date: 02/04/16 4:11:00 CDT Inactive 02/04/2016 [facility] Morphine 4 mg, Route: IVP, Drug form: INJ, ONCE, Dosing Weight 115.909, kg, Priority: STAT, Start date: 02/04/16 4:01:00 CDT, Stop date: 02/04/16 4:01:00 CDT Inactive 02/04/2016 [facility] Saline Flush 0.9% 10 mL, Route: IVP, Drug Form: INJ, Dosing Weight 115.909, kg, PRN, PRN Line Flush, Start date: 02/03/16 22:25:00 CDT, Duration: 30 day, Stop date: 03/04/16 22:24:00 CDTNotes: (Same as: BD Posiflush) No Longer Active 02/04/2016 [facility] METRONIDazole 500 mg oral tablet 500 mg, 1 tab, PO, Q12H, 14 tab, Substitution Allowed, TAB PO Active Lew 05/16/2011 [facility] azithromycin 1,000 mg, 1 pkt, Route: PO, Drug form: PCKT, ONCE, Priority: STAT, Start date: 05/15/11 16:57:00, Stop date: 05/15/11 16:57:00 PO No Longer Active Lew 05/15/2011 [facility] ceftriaxone 250 mg, Route: IM, Drug form: PDR/INJ, ONCE, Priority: STAT, Start date: 05/15/11 16:57:00, Stop date: 05/15/11 16:57:00 IM No Longer Active Lew 05/15/2011 [facility] Allergies, Adverse Reactions, Alerts Substance Category Reaction Severity Reaction type Status Date Reported Comments Source No Known Drug Allergies Propensity to adverse reactions to drug Active 09/02/2012 [facility] Immunizations Immunization Date Given Site Status Last Updated Comments Source pneumococcal 23-valent vaccine 02/08/2016 Left Deltoid completed [facility], JANEL Liang,[facility] Results Order Name Results Value Reference Range Date Interpretation Comments Source COMPREHENSIVE METABOLIC PANEL(DBIL NOT INCLUDED) <td ID="[id number]">Sodium</td><td>140</td><td>136 - 145 mmol/L</td><td>[facility]</td><td ID="[id number]"/> 140 136 - 145 12/03/2018 [facility] COMPREHENSIVE METABOLIC PANEL(DBIL NOT INCLUDED) <td ID="[id number]">Potassium</td><td>3.9</td><td>3.5 - 5.1 mmol/L</td><td>[facility]</td><td ID="[id number]"/> 3.9 3.5 - 5.1 12/03/2018 [facility] COMPREHENSIVE METABOLIC PANEL(DBIL NOT INCLUDED) <td ID="[id number]">Chloride</td><td>107</td><td>98 - 107 mmol/L</td><td>[facility]</td><td ID="[id number]"/> 107 98 - 107 12/03/2018 [facility] COMPREHENSIVE METABOLIC PANEL(DBIL NOT INCLUDED) CO2 26 21 - 31 12/03/2018 [facility] COMPREHENSIVE METABOLIC PANEL(DBIL NOT INCLUDED) Glucose 102 70 - 110 12/03/2018 [facility] COMPREHENSIVE METABOLIC PANEL(DBIL NOT INCLUDED) Calcium, Total 8.9 8.6 - 10.3 12/03/2018 [facility] COMPREHENSIVE METABOLIC PANEL(DBIL NOT INCLUDED) Urea Nitrogen 10.0 7 - 25 12/03/2018 [facility] COMPREHENSIVE METABOLIC PANEL(DBIL NOT INCLUDED) Creatinine 1.0 0.7 - 1.3 12/03/2018 [facility] COMPREHENSIVE METABOLIC PANEL(DBIL NOT INCLUDED) Alkaline Phosphatase 41 34 - 104 12/03/2018 [facility] COMPREHENSIVE METABOLIC PANEL(DBIL NOT INCLUDED) ALT 16 7 - 52 12/03/2018 [facility] COMPREHENSIVE METABOLIC PANEL(DBIL NOT INCLUDED) AST 18 13 - 39 12/03/2018 [facility] COMPREHENSIVE METABOLIC PANEL(DBIL NOT INCLUDED) <td ID="[id number]">Total Bilirubin</td><td>0.4</td><td>0.2 - 1.2 mg/dL</td><td>[facility]</td><td ID="[id number]"/> 0.4 0.2 - 1.2 12/03/2018 [facility] COMPREHENSIVE METABOLIC PANEL(DBIL NOT INCLUDED) <td ID="[id number]">Total Protein</td><td>6.6</td><td>6.0 - 8.3 g/dL</td><td>[facility]</td><td ID="[id number]"/> 6.6 6 - 8.3 12/03/2018 [facility] COMPREHENSIVE METABOLIC PANEL(DBIL NOT INCLUDED) GFR, Estimated >60 mL/min/1.73 m2 12/03/2018 [facility] METABOLIC PANEL(DBIL NOT INCLUDED) <td ID="[id number]">Albumin</td><td><span style="flagData">3.5</span><span style="flagData"> (L)</span></td><td>4.2 - 5.5 g/dL</td><td>[facility]</td><td ID="[id number]"/> 3.5 4.2 - 5.5 12/03/2018 [facility] COMPREHENSIVE METABOLIC PANEL(DBIL NOT INCLUDED) Anion Gap 7 5 - 16 12/03/2018 [facility] COMPREHENSIVE METABOLIC PANEL(DBIL NOT INCLUDED) Lab Interpretation Abnormal 12/03/2018 [facility] DIFFERENTIAL, MANUAL WBC Corrected 9.8 4.5 - 12 12/03/2018 [facility] DIFFERENTIAL, MANUAL Neutrophil 62.0 34 - 67.9 12/03/2018 [facility] DIFFERENTIAL, MANUAL Lymphocyte 20.0 21.8 - 50 12/03/2018 [facility] DIFFERENTIAL, MANUAL Monocyte 14.0 5.3 - 12 12/03/2018 [facility] DIFFERENTIAL, MANUAL Eosinophil 2.0 0.8 - 5 12/03/2018 [facility] DIFFERENTIAL, MANUAL Basophil 2.0 0.2 - 1.2 12/03/2018 [facility] DIFFERENTIAL, MANUAL Segs + Bands, Abs 6.08 12/03/2018 [facility] DIFFERENTIAL, MANUAL Neutrophil, Abs 6.08 1.78 - 5.36 12/03/2018 [facility] DIFFERENTIAL, MANUAL Lymphocyte, Abs 1.96 1.32 - 3.57 12/03/2018 [facility] DIFFERENTIAL, MANUAL Monocyte, Abs 1.37 0.3 - 0.82 12/03/2018 [facility] DIFFERENTIAL, MANUAL Eosinophil, Abs 0.20 0.04 - 0.54 12/03/2018 [facility] DIFFERENTIAL, MANUAL Basophil, Abs 0.20 0.01 - 0.08 12/03/2018 [facility] DIFFERENTIAL, MANUAL Cells Counted 100 12/03/2018 [facility] DIFFERENTIAL, MANUAL Lab Interpretation Abnormal 12/03/2018 [facility] CBC <td ID="[id number]">WBC</td><td>9.8</td><td>4.5 - 12.0 K/uL</td><td>[facility]</td><td ID="[id number]"/> 9.8 4.5 - 12 12/03/2018 [facility] CBC <td ID="[id number]">RBC</td><td><span style="flagData">4.58</span><span style="flagData"> (L)</span></td><td>4.60 - 6.20 M/uL</td><td>[facility]</td><td ID="[id number]"/> 4.58 4.60 - 6.20 12/03/2018 [facility] CBC <td ID="[id number]">Hemoglobin</td><td><span style="flagData">13.1</span><span style="flagData"> (L)</span></td><td>14.0 - 18.0 g/dL</td><td>[facility]</td><td ID="[id number]"/> 13.1 14 - 18 12/03/2018 [facility] CBC <td ID="[id number]">Hematocrit</td><td>41.1</td><td>40.0 - 54.0 %</td><td>[facility]</td><td ID="[id number]"/> 41.1 40 - 54 12/03/2018 [facility] CBC <td ID="[id number]">MCV</td><td>89.7</td><td>82.0 - 92.0 fL</td><td>[facility]</td><td ID="[id number]"/> 89.7 82 - 92 12/03/2018 [facility] CBC <td ID="[id number]">MCH</td><td>28.6</td><td>27.0 - 31.0 pg</td><td>[facility]</td><td ID="[id number]"/> 28.6 27 - 31 12/03/2018 [facility] CBC <td ID="[id number]">MCHC</td><td><span style="flagData">31.9</span><span style="flagData"> (L)</span></td><td>32.0 - 36.0 g/dL</td><td>[facility]</td><td ID="[id number]"/> 31.9 32 - 36 12/03/2018 [facility] CBC <td ID="[id number]">RDW</td><td><span style="flagData">51.3</span><span style="flagData"> (H)</span></td><td>35.1 - 43.9 fL</td><td>[facility]</td><td ID=& amp;quot;[id number]"/> 51.3 35.1 - 43.9 12/03/2018 [facility] CBC <td ID="[id number]">Platelet</td><td>211</td><td>150 - 400 K/uL</td><td>[facility]</td><td ID="[id number]"/> 211 150 - 400 12/03/2018 [facility] CBC <td ID="[id number]">Mean Platelet Volume</td><td>9.7</td><td>9.4 - 12.4 fL</td><td>[facility]</td><td ID="[id number]"/> 9.7 9.4 - 12.4 12/03/2018 [facility] CBC Lab Interpretation Abnormal 12/03/2018 [facility] QUANTIFERON TB GOLD QuantiFERON Incubation Incubation performed. 11/08/2018 [facility] QUANTIFERON TB GOLD QuantiFERON TB Gold Plus Negative Reference range: Negative 11/08/2018 [facility] QUANTIFERON TB GOLD QuantiFERON Criteria Comment (note) The QuantiFERON-TB Gold Plus result is determined by subtracting the Nil value from either TB antigen (Ag) tube. The mitogen tube serves as a control for the test. 11/08/2018 [facility] QUANTIFERON TB GOLD Quantiferon TB1 0.21 Unit: IU/mL 11/08/2018 [facility] QUANTIFERON TB GOLD Quantiferon TB2 0.31 Unit: IU/mL 11/08/2018 [facility] QUANTIFERON TB GOLD QuantiFERON Nil Value 0.22 Unit: IU/mL 11/08/2018 [facility] QUANTIFERON TB GOLD QuantiFERON Mitogen Value >10.00 Unit: IU/mL 11/08/2018 [facility] SJOGREN'S AB Anti SS/A <0.2 Reference range: 0.0 to 0.9 Unit: AI 11/03/2018 [facility] SJOGREN'S AB Anti SS/B <0.2 Reference range: 0.0 to 0.9 Unit: AI 11/03/2018 [facility] COMPLEMENT C3 Complement C3 141.2 87 - 200 11/02/2018 [facility] COMPLEMENT C4 Complement C4 25.2 19 - 52 11/02/2018 [facility] SANDY SANDY Screen Negative NEG 11/02/2018 [facility] T PROT/CREA RATIO,UR Creatinine, Urine 182.5 20 - 370 11/02/2018 [facility] T PROT/CREA RATIO,UR T Prot, Ur 0.26 11/02/2018 [facility] T PROT/CREA RATIO,UR T Prot/Crea Ratio,Ur 0.14 0.0 - 0.5 11/02/2018 [facility] HEPATITIS PANEL <td ID="[id number]">HCV IgG</td><td>Negative</td><td>NEG</td><td>[facility] 3</td><td ID="[id number]"/> Negative NEG 11/01/2018 [facility] HEPATITIS PANEL <td ID="[id number]">HBsAg</td><td>Negative</td><td>NEG</td><td>BT MAIN-STATION 3</td><td ID="[id number]"/> Negative NEG 11/01/2018 [facility] HEPATITIS PANEL <td ID="[id number]">HAV, IgM</td><td>Negative</td><td>NEG</td><td>BT MAIN-STATION 3</td><td ID="[id number]"/> Negative NEG 11/01/2018 [facility] HEPATITIS PANEL <td ID="[id number]">HBcAb, IgM</td><td>Negative</td><td>NEG</td><td>BT MAIN-STATION 3</td><td ID="[id number]"/> Negative NEG 11/01/[address] [facility] CHEMISTRIES <td ID="[id number]">Color</td><td>Yellow</td><td/><td>BT MAIN-STATION 2</td><td ID="[id number]"/> Yellow 11/01/2018 [facility] UA CHEMISTRIES Clarity Clear 11/01/[address] [facility] CHEMISTRIES <td ID="[id number]">Specific [place]</td><td>1.019</td><td>1.001 - 1.035</td><td>[facility]</td><td ID="[id number]"/> 1.019 1.001 - 1.035 11/01/[address] [facility] CHEMISTRIES <td ID="[id number]">pH</td><td>6.0</td><td>5 - 8</td><td>[facility]</td><td ID="[id number]"/> 6.0 5 - 8 11/01/[address] [facility] CHEMISTRIES <td ID="[id number]">Protein</td><td><span style="flagData">1+</span><span style="flagData"> (A)</span></td><td>NEG</td><td>BT [facility]IN-[facility] 2</td><td ID=&quot ;[id number]"/> 1+ NEG 11/01/2018 [facility] UA CHEMISTRIES <td ID="[id number]">Glucose</td><td>Negative</td><td>NEG</td><td>BT MAIN-STATION 2</td><td ID="[id number]"/> Negative NEG 11/01/2018 [facility] UA CHEMISTRIES <td ID="[id number]">Ketones</td><td>Negative</td><td>NEG</td><td>BT MAIN-STATION 2</td><td ID="[id number]"/> Negative NEG 11/01/2018 [facility] UA CHEMISTRIES <td ID="[id number]">Bilirubin</td><td>Negative</td><td>NEG</td><td>BT MAIN-STATION 2</td><td ID="[id number]"/> Negative NEG 11/01/[address] [facility] CHEMISTRIES <td ID="[id number]">Nitrate</td><td>Negative</td><td>NEG</td><td>BT MAIN-STATION 2</td><td ID="[id number]"/> Negative NEG 11/01/2018 [facility] UA CHEMISTRIES <td ID="[id number]">Urobilinogen,Semi- Qn</td><td><1.0</td><td>0.2 - 1.0 EU/dL</td><td>[facility]</td><td ID="[id number]"/> <1.0 0.2 - 1 11/01/2018 [facility] UA CHEMISTRIES <td ID="[id number]">Leukocyte</td><td>Negative</td><td>NEG</td><td>BT MAIN-STATION 2</td><td ID="[id number]"/> Negative NEG 11/01/2018 [facility] UA CHEMISTRIES Occult Blood 3+ NEG 11/01/2018 [facility] UA CHEMISTRIES RBC 7 0 - 4 11/01/2018 [facility] UA CHEMISTRIES WBC 1 0 - 5 11/01/2018 [facility] UA CHEMISTRIES Epithelial Cell 2 /HPF 11/01/2018 [facility] UA CHEMISTRIES Mucous Present 11/01/2018 [facility] UA CHEMISTRIES Lab Interpretation Abnormal 11/01/2018 [facility] COMPREHENSIVE METABOLIC PANEL(DBIL NOT INCLUDED) <td ID="[id number]">Albumin</td><td><span style="flagData">3.4</span><span style="flagData"> (L)</span></td><td>4.2 - 5.5 g/dL</td><td>[facility]</td><td ID="[id number]"/> 3.4 4.2 - 5.5 11/01/2018 [facility] COMPREHENSIVE METABOLIC PANEL(DBIL NOT INCLUDED) <td ID="[id number]">Calcium</td><td>9.4</td><td>8.6 - 10.3 mg/dL</td><td>[facility]</td><td ID="[id number]"/> 9.4 8.6 - 10.3 11/01/2018 [facility] COMPREHENSIVE METABOLIC PANEL(DBIL NOT INCLUDED) <td ID="[id number]">CO2</td><td>27</td><td>21 - 31 mmol/L</td><td>[facility]</td><td ID="[id number]"/> 27 21 - 31 11/01/2018 [facility] COMPREHENSIVE METABOLIC PANEL(DBIL NOT INCLUDED) <td ID="[id number]">Chloride</td><td>105</td><td>98 - 107 mmol/L</td><td>[place] [address]</td><td ID="[id number]"/> 105 98 - 107 11/01/2018 [facility] COMPREHENSIVE METABOLIC PANEL(DBIL NOT INCLUDED) <td ID="[id number]">Creatinine</td><td>1.00</td><td>0.70 - 1.30 mg/dL</td><td>[place] [address]</td><td ID="[id number]"/> 1.00 0.7 - 1.3 11/01/2018 [facility] COMPREHENSIVE METABOLIC PANEL(DBIL NOT INCLUDED) <td ID="[id number]">Glucose</td><td>88</td><td>70 - 110 mg/dL</td><td>[place] [address]</td><td ID="[id number]"/> 88 70 - 110 11/01/2018 [facility] COMPREHENSIVE METABOLIC PANEL(DBIL NOT INCLUDED) <td ID="[id number]">Alk Phos</td><td>47</td><td>34 - 104 U/L</td><td>[place] [address]</td><td ID="[id number]"/> 47 34 - 104 11/01/2018 [facility] COMPREHENSIVE METABOLIC PANEL(DBIL NOT INCLUDED) <td ID="[id number]">Potassium</td><td>3.6</td><td>3.5 - 5.1 mmol/L</td><td>[place] [address]</td><td ID="[id number]"/> 3.6 3.5 - 5.1 11/01/2018 [facility] COMPREHENSIVE METABOLIC PANEL(DBIL NOT INCLUDED) <td ID="[id number]">Sodium</td><td>140</td><td>136 - 145 mmol/L</td><td>[place] [address]</td><td ID="[id number]"/> 140 136 - 145 11/01/2018 [facility] COMPREHENSIVE METABOLIC PANEL(DBIL NOT INCLUDED) <td ID="[id number]">ALT</td><td>27</td><td>7 - 52 U/L</td><td>[facility]</td><td ID="[id number]"/> 27 7 - 52 11/01/2018 [facility] COMPREHENSIVE METABOLIC PANEL(DBIL NOT INCLUDED) <td ID="[id number]">AST</td><td>18</td><td>13 - 39 U/L</td><td>[place] [address]</td><td ID="[id number]"/> 18 13 - 39 11/01/2018 [facility] COMPREHENSIVE METABOLIC PANEL(DBIL NOT INCLUDED) <td ID="[id number]">Urea Nitrogen</td><td>14</td><td>7 - 25 mg/dL</td><td>[facility]</td><td ID="[id number]"/> 14 7 - 25 11/01/2018 [facility] COMPREHENSIVE METABOLIC PANEL(DBIL NOT INCLUDED) <td ID="[id number]">T Bilirubin</td><td>0.4</td><td>0.2 - 1.2 mg/dL</td><td>[facility]</td><td ID="[id number]"/> 0.4 0.2 - 1.2 11/01/2018 [facility] COMPREHENSIVE METABOLIC PANEL(DBIL NOT INCLUDED) <td ID="[id number]">T Protein</td><td>6.8</td><td>6.0 - 8.3 g/dL</td><td>[facility]</td><td ID="[id number]"/> 6.8 6 - 8.3 11/01/2018 [facility] COMPREHENSIVE METABOLIC PANEL(DBIL NOT INCLUDED) GFR, Estimated >60 mL/min/1.73 m2 11/01/2018 [facility] METABOLIC PANEL(DBIL NOT INCLUDED) GFR, Estim, Afr-Am >60 mL/min/1.73 m2 11/01/2018 [facility] COMPREHENSIVE METABOLIC PANEL(DBIL NOT INCLUDED) Anion Gap 8 11/01/2018 [facility] METABOLIC PANEL(DBIL NOT INCLUDED) Lab Interpretation Abnormal 11/01/2018 [facility] CBC/DIFF <td ID="[id number]">WBC</td><td><span style="flagData">17.6</span><span style="flagData"> (H)</span></td><td>4.5 - 12.0 K/uL</td><td>[place] [address]</td><td ID=&a mp;quot;[id number]"/> 17.6 4.5 - 12 11/01/2018 [facility] CBC/DIFF <td ID="[id number]">RBC</td><td>4.70</td><td>4.60 - 6.20 M/uL</td><td>[place] [address]</td><td ID="[id number]"/> 4.70 4.60 - 6.20 11/01/2018 [facility] CBC/DIFF <td ID="[id number]">Hemoglobin</td><td><span style="flagData">13.4</span><span style="flagData"> (L)</span></td><td>14.0 - 18.0 g/dL</td><td>[place] [address]</td><td ID="[id number]"/> 13.4 14 - 18 11/01/2018 [facility] CBC/DIFF <td ID="[id number]">Hematocrit</td><td>41.7</td><td>40.0 - 54.0 %</td><td>[place] [address]</td><td ID="[id number]"/> 41.7 40 - 54 11/01/2018 [facility] CBC/DIFF <td ID="[id number]">MCV</td><td>89</td><td>82 - 92 fL</td><td>[place] [address]</td><td ID="[id number]"/> 89 82 - 92 11/01/2018 [facility] CBC/DIFF <td ID="[id number]">MCH</td><td>28.5</td><td>27.0 - 31.0 pg</td><td>[place] [address]</td><td ID="[id number]"/> 28.5 27 - 31 11/01/2018 [facility] CBC/DIFF <td ID="[id number]">MCHC</td><td>32.1</td><td>32.0 - 36.0 g/dL</td><td>[place] [address]</td><td ID="[id number]"/> 32.1 32 - 36 11/01/2018 [facility] CBC/DIFF <td ID="[id number]">RDW</td><td><span style="flagData">50.9</span><span style="flagData"> (H)</span></td><td>35.1 - 43.9 fL</td><td>[place] [address]</td><td ID=&am p;quot;[id number]"/> 50.9 35.1 - 43.9 11/01/2018 [facility] CBC/DIFF <td ID="[id number]">Platelets</td><td>247</td><td>150 - 400 K/uL</td><td>[place] [address]</td><td ID="[id number]"/> 247 150 - 400 11/01/2018 [facility] CBC/DIFF <td ID="[id number]">Neutrophils</td><td><span>62.3</span><span style="allIndent"><span style="cellHeader">Comment: </span><span ID="[id number]">Corrected on 11/01 AT 1232: Previously reported as: 64.3</span></span></td><td>34.0 - 67.9 %</td><td>[place] [address]</td><td ID="[id number]"/> 62.3 34 - 67.9 11/01/2018 Corrected on 11/01 AT 1232: Previously reported as: 64.3 [facility] CBC/DIFF <td ID="[id number]">Lymphs</td><td>22.6</td><td>21.8 - 50.0 %</td><td>[place] [address]</td><td ID="[id number]"/> 22.6 21.8 - 50 11/01/2018 [facility] CBC/DIFF <td ID="[id number]">Monocytes</td><td>11.2</td><td>5.3 - 12.0 %</td><td>[place] [address]</td><td ID="[id number]"/> 11.2 5.3 - 12 11/01/2018 [facility] CBC/DIFF <td ID="[id number]">Eos</td><td>1.3</td><td>0.8 - 5.0 %</td><td>[facility]</td><td ID="[id number]"/> 1.3 0.8 - 5 11/01/2018 [facility] CBC/DIFF <td ID="[id number]">Basos</td><td>0.6</td><td>0.2 - 1.2 %</td><td>[facility]</td><td ID="[id number]"/> 0.6 0.2 - 1.2 11/01/2018 [facility] CBC/DIFF Neutrophils (Absolute) 10.96 1.78 - 5.36 11/01/2018 Corrected on 11/01 AT 1232: Previously reported as: 11.31 [facility] CBC/DIFF Lymphs (Absolute) 3.98 1.32 - 3.57 11/01/2018 Corrected on 11/01 AT 1232: Previously reported as: 3.96 [facility] CBC/DIFF Monocytes(Absolute) 1.97 0.3 - 0.82 11/01/2018 Corrected on 11/01 AT 1232: Previously reported as: 1.96 [facility] CBC/DIFF Eos (Absolute) 0.23 0.04 - 0.54 11/01/2018 Corrected on 11/01 AT 1232: Previously reported as: 0.22 [facility] CBC/DIFF Baso (Absolute) 0.11 0.01 - 0.08 11/01/2018 Corrected on 11/01 AT 1232: Previously reported as: 0.10 [facility] CBC/DIFF Atypical Lymph 2 11/01/2018 [facility] CBC/DIFF Lab Interpretation Abnormal 11/01/2018 [facility] CCP IGG ABS CCP Abs IgG/IgA >250 Reference range: 0 to 19 Unit: units (note) Negative 59 07/07/2018 [facility] CCP IGG ABS Lab Interpretation Abnormal 07/07/2018 [facility] RA FACTOR RA Factor 1754 <14 IU/mL 07/05/2018 [facility] RA FACTOR Lab Interpretation Abnormal 07/05/2018 [facility] SED RATE Sed Rate 91 <20 mm/Hr 07/04/2018 [facility] SED RATE Lab Interpretation Abnormal 07/04/2018 [facility] COMPREHENSIVE METABOLIC PANEL(DBIL NOT INCLUDED) Albumin 3.4 4.2 - 5.5 07/04/2018 [facility] COMPREHENSIVE METABOLIC PANEL(DBIL NOT INCLUDED) Calcium 9.1 8.6 - 10.3 07/04/2018 [facility] COMPREHENSIVE METABOLIC PANEL(DBIL NOT INCLUDED) CO2 27 21 - 31 07/04/2018 [facility] COMPREHENSIVE METABOLIC PANEL(DBIL NOT INCLUDED) Chloride 106 98 - 107 07/04/2018 [facility] COMPREHENSIVE METABOLIC PANEL(DBIL NOT INCLUDED) Creatinine 0.80 0.7 - 1.3 07/04/2018 [facility] COMPREHENSIVE METABOLIC PANEL(DBIL NOT INCLUDED) Glucose 89 70 - 110 07/04/2018 [facility] COMPREHENSIVE METABOLIC PANEL(DBIL NOT INCLUDED) Alk Phos 44 34 - 104 07/04/2018 [facility] COMPREHENSIVE METABOLIC PANEL(DBIL NOT INCLUDED) Potassium 4.3 3.5 - 5.1 07/04/2018 [facility] COMPREHENSIVE METABOLIC PANEL(DBIL NOT INCLUDED) Sodium 138 136 - 145 07/04/2018 [facility] COMPREHENSIVE METABOLIC PANEL(DBIL NOT INCLUDED) ALT 14 7 - 52 07/04/2018 [facility] COMPREHENSIVE METABOLIC PANEL(DBIL NOT INCLUDED) AST 14 13 - 39 07/04/2018 [facility] COMPREHENSIVE METABOLIC PANEL(DBIL NOT INCLUDED) Urea Nitrogen 8 7 - 25 07/04/2018 [facility] COMPREHENSIVE METABOLIC PANEL(DBIL NOT INCLUDED) T Bilirubin 0.5 0.2 - 1.2 07/04/2018 [facility] COMPREHENSIVE METABOLIC PANEL(DBIL NOT INCLUDED) T Protein 6.7 6 - 8.3 07/04/2018 [facility] COMPREHENSIVE METABOLIC PANEL(DBIL NOT INCLUDED) GFR, Estimated >60 mL/min/1.73 m2 07/04/2018 [facility] COMPREHENSIVE METABOLIC PANEL(DBIL NOT INCLUDED) GFR, Estim, Afr-Am >60 mL/min/1.73 m2 07/04/2018 [facility] COMPREHENSIVE METABOLIC PANEL(DBIL NOT INCLUDED) Anion Gap 5 07/04/2018 [facility] COMPREHENSIVE METABOLIC PANEL(DBIL NOT INCLUDED) Lab Interpretation Abnormal 07/04/2018 [facility] CRP, HIGH SENS CRP, high sens 14.692 <1.0 07/04/2018 [facility] CRP, HIGH SENS Lab Interpretation Abnormal 07/04/2018 [facility] CBC/DIFF WBC 15.2 4.5 - 12 07/04/2018 [facility] CBC/DIFF RBC 4.87 4.60 - 6.20 07/04/2018 [facility] CBC/DIFF Hemoglobin 12.6 14 - 18 07/04/2018 [facility] CBC/DIFF Hematocrit 42.1 40 - 54 07/04/2018 [facility] CBC/DIFF MCV 86 82 - 92 07/04/2018 [facility] CBC/DIFF MCH 25.9 27 - 31 07/04/2018 [facility] CBC/DIFF MCHC 29.9 32 - 36 07/04/2018 [facility] CBC/DIFF RDW 53.5 35.1 - 43.9 07/04/2018 [facility] CBC/DIFF Platelet 245 150 - 400 07/04/2018 [facility] CBC/DIFF Mean Platelet Volume 9.9 9.4 - 12.4 07/04/2018 [facility] CBC/DIFF Percent NRBC 0.0 07/04/2018 [facility] CBC/DIFF Absolute NRBC 0.00 07/04/2018 [facility] CBC/DIFF Neutrophil 76.0 34 - 67.9 07/04/2018 [facility] CBC/DIFF Lymphocyte 13.0 21.8 - 50 07/04/2018 [facility] CBC/DIFF Monocyte 7.0 5.3 - 12 07/04/2018 [facility] CBC/DIFF Eosinophil 1.0 0.8 - 5 07/04/2018 [facility] CBC/DIFF Basophil 1.0 0.2 - 1.2 07/04/2018 [facility] CBC/DIFF Neutrophil, Abs 11.56 1.78 - 5.36 07/04/2018 [facility] CBC/DIFF Lymphocyte, Abs 1.98 1.32 - 3.57 07/04/2018 [facility] CBC/DIFF Monocyte, Abs 1.06 0.3 - 0.82 07/04/2018 [facility] CBC/DIFF Eosinophil, Abs 0.15 0.04 - 0.54 07/04/2018 [facility] CBC/DIFF Basophil, Abs 0.15 0.01 - 0.08 07/04/2018 [facility] CBC/DIFF Atypical Lymph 2 07/04/2018 [facility] CBC/DIFF Lab Interpretation Abnormal 07/04/2018 [facility] ELECTROLYTES Sodium Lvl 136 135 - 145 01/19/2018 [facility] ELECTROLYTES Calcium Lvl 7.7 8.5 - 10.5 01/19/2018 [facility] ELECTROLYTES Creatinine Lvl 0.72 0.50 - 1.40 01/19/2018 [facility] ELECTROLYTES BUN 9 7 - 22 01/19/2018 [facility] ELECTROLYTES Chloride Lvl 104 95 - 109 01/19/2018 [facility] ELECTROLYTES Potassium Lvl 4.0 3.5 - 5.1 01/19/2018 [facility] ELECTROLYTES CO2 23 24 - 32 01/19/2018 [facility] ELECTROLYTES eGFR 108 01/19/2018 Result Comment: The [...] should be multiplied by the estimated BMI. [facility] ELECTROLYTES Glucose Lvl 86 70 - 99 01/19/2018 [facility] ELECTROLYTES AGAP 13.0 10.0 - 20.0 01/19/2018 [facility] Monocytes # 2.3 0.0 - 0.8 01/19/2018 [facility] Basophils # 0.1 0.0 - 0.2 01/19/2018 [facility] Eosinophils # 0.2 0.0 - 0.5 01/19/2018 [facility] Lymphocytes 12.6 20.0 - 40.0 01/19/2018 [facility] Basophils 0.7 0.0 - 1.0 01/19/2018 [facility] HEMATOLOGY Eosinophils 1.4 0.0 - 4.0 01/19/2018 [facility] Lymphocytes # 2.2 1.0 - 5.5 01/19/2018 [facility] Neutrophils # 12.6 1.5 - 8.1 01/19/2018 [facility] Monocytes 13.2 2.0 - 12.0 01/19/2018 [facility] Segs 72.1 45.0 - 75.0 01/19/2018 [facility] WBC 17.5 3.7 - 10.4 01/19/2018 [facility] Platelet 336 133 - 450 01/19/2018 [facility] MPV 8.2 7.4 - 10.4 01/19/2018 [facility] MCH 25.9 27.0 - 31.0 01/19/2018 [facility] HEMATOLOGY MCHC 31.0 32.0 - 36.0 01/19/2018 [facility] HEMATOLOGY RDW 17.1 11.5 - 14.5 01/19/2018 [facility] HEMATOLOGY Hgb 10.6 14.0 - 18.0 01/19/2018 [facility] HEMATOLOGY Hct 34.1 42.0 - 54.0 01/19/2018 [facility] HEMATOLOGY MCV 83.3 80.0 - 94.0 01/19/2018 [facility] HEMATOLOGY RBC 4.09 4.70 - 6.10 01/19/2018 [facility] TOXICOLOGY Vanco Tr 11.7 01/16/2018 [facility] TOXICOLOGY Vanco Tr TND 17:30 01/16/2018 [facility] ELECTROLYTES AGAP 11.8 10.0 - 20.0 01/16/2018 [facility] ELECTROLYTES eGFR 110 01/16/2018 Result Comment: The [...] should be multiplied by the estimated BMI. [facility] ELECTROLYTES BUN 12 7 - 22 01/16/2018 [facility] ELECTROLYTES Sodium Lvl 136 135 - 145 01/16/2018 [facility] ELECTROLYTES Creatinine Lvl 0.69 0.50 - 1.40 01/16/2018 [facility] ELECTROLYTES Calcium Lvl 8.4 8.5 - 10.5 01/16/2018 [facility] ELECTROLYTES Chloride Lvl 100 95 - 109 01/16/2018 [facility] ELECTROLYTES CO2 28 24 - 32 01/16/2018 [facility] ELECTROLYTES Potassium Lvl 3.8 3.5 - 5.1 01/16/2018 [facility] ELECTROLYTES Glucose Lvl 133 70 - 99 01/16/2018 [facility] HEMATOLOGY Basophils 0.7 0.0 - 1.0 01/16/2018 [facility] HEMATOLOGY Eosinophils 2.1 0.0 - 4.0 01/16/2018 [facility] HEMATOLOGY Monocytes 17.1 2.0 - 12.0 01/16/2018 [facility] HEMATOLOGY Lymphocytes 11.0 20.0 - 40.0 01/16/2018 [facility] HEMATOLOGY Monocytes # 3.0 0.0 - 0.8 01/16/2018 [facility] HEMATOLOGY Neutrophils # 11.9 1.5 - 8.1 01/16/2018 [facility] HEMATOLOGY Lymphocytes # 1.9 1.0 - 5.5 01/16/2018 [facility] HEMATOLOGY Segs 69.1 45.0 - 75.0 01/16/2018 [facility] HEMATOLOGY Eosinophils # 0.4 0.0 - 0.5 01/16/2018 [facility] HEMATOLOGY Basophils # 0.1 0.0 - 0.2 01/16/2018 [facility] MCHC 31.3 32.0 - 36.0 01/16/2018 [facility] HEMATOLOGY RDW 17.0 11.5 - 14.5 01/16/2018 [facility] HEMATOLOGY MCV 84.2 80.0 - 94.0 01/16/2018 [facility] MCH 26.3 27.0 - 31.0 01/16/2018 [facility] MPV 9.1 7.4 - 10.4 01/16/2018 [facility] Platelet 245 133 - 450 01/16/2018 [facility] HEMATOLOGY Hct 33.0 42.0 - 54.0 01/16/2018 [facility] RBC 3.91 4.70 - 6.10 01/16/2018 [facility] Hgb 10.3 14.0 - 18.0 01/16/2018 [facility] HEMATOLOGY WBC 17.3 3.7 - 10.4 01/16/2018 [facility] CHEM PANEL Procalcitonin Lvl 0.07 0.00 - 0.10 01/15/2018 [facility] CARDIAC ENZYMES Troponin-I <0.02 0.00 - 0.40 01/15/2018 [facility] CARDIAC ENZYMES Total CK 27 - 01/15/2018 [facility] CARDIAC ENZYMES Troponin-I <0.02 0.00 - 0.40 01/15/2018 [facility] CARDIAC ENZYMES CK MB <1.0 0.5 - 3.6 01/15/2018 [facility] CARDIAC ENZYMES Total CK 28 - 01/15/2018 [facility] CHEM PANEL eGFR 109 01/15/2018 Result Comment: [...] should be multiplied by the estimated BMI. [facility] CHEM PANEL Calcium Lvl 8.7 8.5 - 10.5 01/15/2018 [facility] CHEM PANEL Chloride Lvl 100 95 - 109 01/15/2018 [facility] CHEM PANEL CO2 30 24 - 32 01/15/2018 [facility] CHEM PANEL Potassium Lvl 4.2 3.5 - 5.1 01/15/2018 [facility] CHEM PANEL BUN 15 7 - 22 01/15/2018 [facility] CHEM PANEL Creatinine Lvl 0.71 0.50 - 1.40 01/15/2018 [facility] CHEM PANEL Sodium Lvl 135 135 - 145 01/15/2018 [facility] CHEM PANEL Glucose Lvl 148 70 - 99 01/15/2018 [facility] CHEM PANEL AGAP 9.2 10.0 - 20.0 01/15/2018 [facility] HEMATOLOGY Platelet 258 133 - 450 01/15/2018 [facility] HEMATOLOGY RDW 16.5 11.5 - 14.5 01/15/2018 [facility] HEMATOLOGY MCHC 32.0 32.0 - 36.0 01/15/2018 [facility] HEMATOLOGY MPV 8.6 7.4 - 10.4 01/15/2018 [facility] HEMATOLOGY Hct 36.0 42.0 - 54.0 01/15/2018 [facility] RBC 4.31 4.70 - 6.10 01/15/2018 [facility] HEMATOLOGY MCV 83.4 80.0 - 94.0 01/15/2018 [facility] Hgb 11.5 14.0 - 18.0 01/15/2018 [facility] HEMATOLOGY MCH 26.7 27.0 - 31.0 01/15/2018 [facility] HEMATOLOGY WBC 20.6 3.7 - 10.4 01/15/2018 [facility] HEMATOLOGY Basophils # 0.1 0.0 - 0.2 01/15/2018 [facility] HEMATOLOGY Basophils 0.3 0.0 - 1.0 01/15/2018 [facility] HEMATOLOGY Eosinophils 0.5 0.0 - 4.0 01/15/2018 [facility] HEMATOLOGY Monocytes 13.0 2.0 - 12.0 01/15/2018 [facility] HEMATOLOGY Lymphocytes 8.8 20.0 - 40.0 01/15/2018 [facility] HEMATOLOGY Eosinophils # 0.1 0.0 - 0.5 01/15/2018 [facility] HEMATOLOGY Monocytes # 2.7 0.0 - 0.8 01/15/2018 [facility] Neutrophils # 15.9 1.5 - 8.1 01/15/2018 [facility] Lymphocytes # 1.8 1.0 - 5.5 01/15/2018 [facility] Segs 77.4 45.0 - 75.0 01/15/2018 [facility] MEROPENEM:SUSC:PT:ISOLATE:ORDQN:KALPANA Gram Stain Report Gram Stain Performed By: [facility] 01/14/2018 [facility] MEROPENEM:SUSC:PT:ISOLATE:ORDQN:KALPANA Culture: Respiratory w/Gram Stain Many Pseudomonas aeruginosa 01/14/2018 [facility] MEROPENEM:SUSC:PT:ISOLATE:ORDQN:KALPANA Pseudomonas aeruginosa Pseudomonas aeruginosa 01/14/2018 [facility] URINE AND STOOL UA Sq Epi None Seen 01/14/2018 [facility] URINE AND STOOL UA RBC 3 0 - 2 01/14/2018 [facility] URINE AND STOOL UA Bacteria Few /HPF None Seen /HPF 01/14/2018 [facility] URINE AND STOOL UA Amorph Caryn Occasional /HPF None Seen /HPF 01/14/2018 [facility] URINE AND STOOL UA Color Yellow *NA* (01/14/18 9:00 AM) Yellow 01/14/2018 [facility] URINE AND STOOL UA Turbidity Marked *ABN* (01/14/18 9:00 AM) Clear 01/14/2018 [facility] URINE AND STOOL UA Spec Grav 1.024 <=1.030 01/14/2018 [facility] URINE AND STOOL UA pH 7.0 5.0 - 8.0 01/14/2018 [facility] URINE AND STOOL UA Blood Negative (01/14/18 9:00 AM) Negative 01/14/2018 [facility] URINE AND STOOL UA Urobilinogen 4.0 0.1 - 1.0 01/14/2018 [facility] URINE AND STOOL UA Nitrite Negative (01/14/18 9:00 AM) Negative 01/14/2018 [facility] URINE AND STOOL UA Leuk Est Negative (01/14/18 9:00 AM) Negative 01/14/2018 [facility] URINE AND STOOL UA WBC 4 0 - 5 01/14/2018 [facility] URINE AND STOOL UA Protein Negative mg/dL Negative mg/dL 01/14/2018 [facility] URINE AND STOOL UA Glucose Negative mg/dL Negative mg/dL 01/14/2018 [facility] URINE AND STOOL UA Ketones 20 mg/dL Negative mg/dL 01/14/2018 [facility] URINE AND STOOL UA Bili Negative *NA* (01/14/18 9:00 AM) Negative 01/14/2018 [facility] HEMATOLOGY Plt Morph Normal (01/14/18 5:30 AM) 01/14/2018 [facility] RBC Morph Normal (01/14/18 5:30 AM) 01/14/2018 [facility] CHEM PANEL Magnesium Lvl 2.3 1.8 - 2.4 01/13/2018 [facility] CHEM PANEL Phosphorus 3.5 2.5 - 4.5 01/13/2018 [facility] CHEM PANEL Magnesium Lvl 2.5 1.8 - 2.4 01/12/2018 [facility] CHEM PANEL Phosphorus 3.6 2.5 - 4.5 01/12/2018 [facility] CHEM PANEL Magnesium Lvl 2.5 1.8 - 2.4 01/11/2018 [facility] CHEM PANEL Phosphorus 2.8 2.5 - 4.5 01/11/2018 [facility] RBC Morph See Note (01/10/18 3:52 AM) 01/10/2018 [facility] HEMATOLOGY Target Cell slight 01/10/2018 [facility] Polychrom Moderate *ABN* (01/10/18 3:52 AM) None Seen 01/10/2018 [facility] HEMATOLOGY Hypochrom 1+ (01/10/18 3:52 AM) None Seen 01/10/2018 [facility] HEMATOLOGY Plt Morph Normal (01/10/18 3:52 AM) 01/10/2018 [facility] CARDIAC ENZYMES CK MB 2.8 0.5 - 3.6 01/07/2018 [facility] CARDIAC ENZYMES Troponin-I <0.02 0.00 - 0.40 01/07/2018 [facility] CARDIAC ENZYMES Total CK 96 12 - 191 01/07/2018 [facility] CARDIAC ENZYMES CK MB Index 2.9 0.0 - 2.5 01/07/2018 [facility] CHEM PANEL A/G Ratio 0.7 0.7 - 1.6 01/07/2018 [facility] CHEM PANEL Globulin 4.3 2.7 - 4.2 01/07/2018 [facility] CHEM PANEL B/C Ratio 9 6 - 25 01/07/2018 [facility] CHEM PANEL Alk Phos 77 39 - 136 01/07/2018 [facility] CHEM PANEL Bili Total 0.2 0.2 - 1.3 01/07/2018 [facility] CHEM PANEL ALT 16 0 - 65 01/07/2018 [facility] CHEM PANEL AST 24 0 - 37 01/07/2018 [facility] CHEM PANEL Total Protein 7.3 6.4 - 8.4 01/07/2018 [facility] CHEM PANEL Albumin Lvl 3.0 3.5 - 5.0 01/07/2018 [facility] CHEM PANEL Phosphorus 3.6 2.5 - 4.5 12/15/2017 [facility] CHEM PANEL Magnesium Lvl 2.3 1.8 - 2.4 12/15/2017 [facility] CHEM PANEL eGFR 105 12/15/2017 Result Comment: [...] should be multiplied by the estimated BMI. [facility] CHEM PANEL BUN 15 7 - 22 12/15/2017 [facility] CHEM PANEL Glucose Lvl 73 70 - 99 12/15/2017 [facility] CHEM PANEL Chloride Lvl 105 95 - 109 12/15/2017 [facility] CHEM PANEL Potassium Lvl 3.7 3.5 - 5.1 12/15/2017 [facility] CHEM PANEL Sodium Lvl 143 135 - 145 12/15/2017 [facility] CHEM PANEL Creatinine Lvl 0.78 0.50 - 1.40 12/15/2017 [facility] CHEM PANEL AGAP 7.7 10.0 - 20.0 12/15/2017 [facility] CHEM PANEL Calcium Lvl 8.1 8.5 - 10.5 12/15/2017 [facility] CHEM PANEL CO2 34 24 - 32 12/15/2017 [facility] HEMATOLOGY MPV 8.3 7.4 - 10.4 12/15/2017 [facility] HEMATOLOGY Platelet 262 133 - 450 12/15/2017 [facility] HEMATOLOGY RDW 14.3 11.5 - 14.5 12/15/2017 [facility] HEMATOLOGY MCHC 33.5 32.0 - 36.0 12/15/2017 [facility] MCH 30.9 27.0 - 31.0 12/15/2017 [facility] HEMATOLOGY MCV 92.2 80.0 - 94.0 12/15/2017 [facility] HEMATOLOGY Hct 25.5 42.0 - 54.0 12/15/2017 [facility] HEMATOLOGY Hgb 8.5 14.0 - 18.0 12/15/2017 [facility] HEMATOLOGY RBC 2.76 4.70 - 6.10 12/15/2017 [facility] HEMATOLOGY WBC 16.1 3.7 - 10.4 12/15/2017 [facility] HEMATOLOGY Eosinophils 0.6 0.0 - 4.0 12/15/2017 [facility] HEMATOLOGY Basophils 0.5 0.0 - 1.0 12/15/2017 [facility] HEMATOLOGY Lymphocytes 24.0 20.0 - 40.0 12/15/2017 [facility] HEMATOLOGY Monocytes 10.3 2.0 - 12.0 12/15/2017 [facility] HEMATOLOGY Segs-Bands # 10.4 1.5 - 8.1 12/15/2017 [facility] HEMATOLOGY Segs 64.6 45.0 - 75.0 12/15/2017 [facility] HEMATOLOGY Monocytes # 1.7 0.0 - 0.8 12/15/2017 [facility] HEMATOLOGY Eosinophils # 0.1 0.0 - 0.5 12/15/2017 [facility] HEMATOLOGY Lymphocytes # 3.9 1.0 - 5.5 12/15/2017 [facility] HEMATOLOGY Basophils # 0.1 0.0 - 0.2 12/15/2017 [facility] CHEM PANEL eGFR 116 12/14/2017 Result Comment: [...] should be multiplied by the estimated BMI. [facility] CHEM PANEL Potassium Lvl 4.4 3.5 - 5.1 12/14/2017 [facility] CHEM PANEL Sodium Lvl 143 135 - 145 12/14/2017 [facility] CHEM PANEL Creatinine Lvl 0.60 0.50 - 1.40 12/14/2017 [facility] CHEM PANEL Chloride Lvl 103 95 - 109 12/14/2017 [facility] CHEM PANEL CO2 31 24 - 32 12/14/2017 [facility] CHEM PANEL Calcium Lvl 8.8 8.5 - 10.5 12/14/2017 [facility] CHEM PANEL Glucose Lvl 122 70 - 99 12/14/2017 [facility] CHEM PANEL BUN 15 7 - 22 12/14/2017 [facility] CHEM PANEL AGAP 13.4 10.0 - 20.0 12/14/2017 [facility] CHEM PANEL Phosphorus 2.2 2.5 - 4.5 12/14/2017 [facility] CHEM PANEL Magnesium Lvl 2.1 1.8 - 2.4 12/14/2017 [facility] HEMATOLOGY MPV 8.6 7.4 - 10.4 12/14/2017 [facility] RDW 13.6 11.5 - 14.5 12/14/2017 [facility] Platelet 241 133 - 450 12/14/2017 [facility] MCHC 33.0 32.0 - 36.0 12/14/2017 [facility] Hct 25.6 42.0 - 54.0 12/14/2017 [facility] Hgb 8.5 14.0 - 18.0 12/14/2017 [facility] MCV 90.1 80.0 - 94.0 12/14/2017 [facility] MCH 29.7 27.0 - 31.0 12/14/2017 [facility] WBC 26.1 3.7 - 10.4 12/14/2017 [facility] RBC 2.85 4.70 - 6.10 12/14/2017 [facility] Segs 88.1 45.0 - 75.0 12/14/2017 [facility] Lymphocytes 5.0 20.0 - 40.0 12/14/2017 [facility] Monocytes 6.9 2.0 - 12.0 12/14/2017 [facility] Lymphocytes # 1.3 1.0 - 5.5 12/14/2017 [facility] Monocytes # 1.8 0.0 - 0.8 12/14/2017 [facility] Segs-Bands # 23.0 1.5 - 8.1 12/14/2017 [facility] PANEL eGFR 116 12/13/2017 Result Comment: [...] should be multiplied by the estimated BMI. [facility] CHEM PANEL Calcium Lvl 8.4 8.5 - 10.5 12/13/2017 [facility] CHEM PANEL Glucose Lvl 144 70 - 99 12/13/2017 [facility] CHEM PANEL Sodium Lvl 136 135 - 145 12/13/2017 [facility] CHEM PANEL Creatinine Lvl 0.60 0.50 - 1.40 12/13/2017 [facility] CHEM PANEL BUN 13 7 - 22 12/13/2017 [facility] CHEM PANEL Chloride Lvl 101 95 - 109 12/13/2017 [facility] CHEM PANEL Potassium Lvl 4.8 3.5 - 5.1 12/13/2017 [facility] CHEM PANEL CO2 31 24 - 32 12/13/2017 [facility] CHEM PANEL AGAP 8.8 10.0 - 20.0 12/13/2017 [facility] CHEM PANEL Phosphorus 3.8 2.5 - 4.5 12/13/2017 [facility] CHEM PANEL Magnesium Lvl 1.9 1.8 - 2.4 12/13/2017 [facility] HEMATOLOGY Lymphocytes 3.6 20.0 - 40.0 12/13/2017 [facility] HEMATOLOGY Monocytes 1.7 2.0 - 12.0 12/13/2017 [facility] HEMATOLOGY Segs 94.5 45.0 - 75.0 12/13/2017 [facility] HEMATOLOGY Plt Morph Normal (12/13/17 4:42 AM) 12/13/2017 [facility] HEMATOLOGY Segs-Bands # 19.8 1.5 - 8.1 12/13/2017 [facility] HEMATOLOGY Basophils 0.2 0.0 - 1.0 12/13/2017 [facility] HEMATOLOGY Monocytes # 0.4 0.0 - 0.8 12/13/2017 [facility] Lymphocytes # 0.8 1.0 - 5.5 12/13/2017 [facility] RBC Morph Normal (12/13/17 4:42 AM) 12/13/2017 [facility] Hgb 10.0 14.0 - 18.0 12/13/2017 [facility] WBC 20.9 3.7 - 10.4 12/13/2017 [facility] MCV 91.4 80.0 - 94.0 12/13/2017 [facility] RBC 3.27 4.70 - 6.10 12/13/2017 [facility] Hct 29.9 42.0 - 54.0 12/13/2017 [facility] MPV 9.1 7.4 - 10.4 12/13/2017 [facility] RDW 14.0 11.5 - 14.5 12/13/2017 [facility] Platelet 215 133 - 450 12/13/2017 [facility] MCHC 33.7 32.0 - 36.0 12/13/2017 [facility] HEMATOLOGY MCH 30.7 27.0 - 31.0 12/13/2017 [facility] HEMATOLOGY PTT 30.7 22.9 - 35.8 12/12/2017 [facility] HEMATOLOGY INR 1.08 0.85 - 1.17 12/12/2017 [facility] HEMATOLOGY PT 14.0 12.0 - 14.7 12/12/2017 [facility] URINE AND STOOL Occult Bld Stl Positive 1 *ABN* (12/11/17 10:50 PM) Negative 12/12/2017 Result Comment: corrective action called to Marah Eagle RN 12/11/2017 23:14 MS [facility] BLOOD BANK RESULTS ABO/Rh B POS 12/12/2017 [facility] BLOOD BANK RESULTS Antibody Scrn Negative (12/11/17 10:43 PM) 12/12/2017 [facility] CARDIAC ENZYMES CK MB Index 3.7 0.0 - 2.5 12/12/2017 [facility] CARDIAC ENZYMES BNP 5 <=100 pg/mL 12/12/2017 [facility] CARDIAC ENZYMES Total CK 46 12 - 191 12/12/2017 [facility] CARDIAC ENZYMES CK MB 1.7 0.5 - 3.6 12/12/2017 [facility] CARDIAC ENZYMES Troponin-I <0.02 0.00 - 0.40 12/12/2017 [facility] CHEM PANEL Total Protein 5.8 6.4 - 8.4 12/12/2017 [facility] CHEM PANEL Albumin Lvl 2.4 3.5 - 5.0 12/12/2017 [facility] CHEM PANEL A/G Ratio 0.7 0.7 - 1.6 12/12/2017 [facility] CHEM PANEL Globulin 3.4 2.7 - 4.2 12/12/2017 [facility] CHEM PANEL Alk Phos 39 39 - 136 12/12/2017 [facility] CHEM PANEL Bili Total 0.4 0.2 - 1.3 12/12/2017 [facility] CHEM PANEL B/C Ratio 47 6 - 25 12/12/2017 [facility] CHEM PANEL ALT 22 0 - 65 12/12/2017 [facility] CHEM PANEL AST 6 0 - 37 12/12/2017 [facility] HEMATOLOGY Basophils # 0.2 0.0 - 0.2 12/12/2017 [facility] HEMATOLOGY Eosinophils # 0.1 0.0 - 0.5 12/12/2017 [facility] HEMATOLOGY Basophils 0.8 0.0 - 1.0 12/12/2017 [facility] HEMATOLOGY Eosinophils 0.5 0.0 - 4.0 12/12/2017 [facility] HEMATOLOGY RBC Morph Normal (12/11/17 10:43 PM) 12/12/2017 [facility] HEMATOLOGY Plt Morph Normal (12/11/17 10:43 PM) 12/12/2017 [facility] CHEM PANEL eGFR 91 12/07/2017 Result Comment: [...] should be multiplied by the estimated BMI. [facility] CHEM PANEL Creatinine Lvl 0.96 0.50 - 1.40 12/07/2017 [facility] CHEM PANEL Sodium Lvl 141 135 - 145 12/07/2017 [facility] CHEM PANEL BUN 8 7 - 22 12/07/2017 [facility] CHEM PANEL Glucose Lvl 200 70 - 99 12/07/2017 [facility] CHEM PANEL AGAP 12.5 10.0 - 20.0 12/07/2017 [facility] CHEM PANEL Calcium Lvl 8.9 8.5 - 10.5 12/07/2017 [facility] CHEM PANEL CO2 28 24 - 32 12/07/2017 [facility] CHEM PANEL Chloride Lvl 105 95 - 109 12/07/2017 [facility] CHEM PANEL Potassium Lvl 4.5 3.5 - 5.1 12/07/2017 [facility] HEMATOLOGY Basophils # 0.1 0.0 - 0.2 12/07/2017 [facility] HEMATOLOGY Lymphocytes # 0.9 1.0 - 5.5 12/07/2017 [facility] HEMATOLOGY Basophils 0.8 0.0 - 1.0 12/07/2017 [facility] Monocytes # 0.1 0.0 - 0.8 12/07/2017 [facility] HEMATOLOGY Segs-Bands # 11.0 1.5 - 8.1 12/07/2017 [facility] HEMATOLOGY Monocytes 1.0 2.0 - 12.0 12/07/2017 [facility] HEMATOLOGY Lymphocytes 7.7 20.0 - 40.0 12/07/2017 [facility] HEMATOLOGY Segs 90.5 45.0 - 75.0 12/07/2017 [facility] HEMATOLOGY PTT 26.8 22.9 - 35.8 12/07/2017 [facility] HEMATOLOGY PT 13.7 12.0 - 14.7 12/07/2017 [facility] HEMATOLOGY INR 1.05 0.85 - 1.17 12/07/2017 [facility] MCV 92.7 80.0 - 94.0 12/07/2017 [facility] Hct 48.5 42.0 - 54.0 12/07/2017 [facility] MCH 30.7 27.0 - 31.0 12/07/2017 [facility] WBC 12.2 3.7 - 10.4 12/07/2017 [facility] Hgb 16.1 14.0 - 18.0 12/07/2017 [facility] RBC 5.24 4.70 - 6.10 12/07/2017 [facility] MPV 8.4 7.4 - 10.4 12/07/2017 [facility] RDW 14.9 11.5 - 14.5 12/07/2017 [facility] MCHC 33.1 32.0 - 36.0 12/07/2017 [facility] Platelet 221 133 - 450 12/07/2017 [facility] CARDIAC ENZYMES CK MB Index 3.0 0.0 - 2.5 12/07/2017 [facility] CARDIAC ENZYMES Total CK 77 12 - 191 12/07/2017 [facility] CARDIAC ENZYMES BNP 25 <=100 pg/mL 12/07/2017 [facility] CARDIAC ENZYMES CK MB 2.3 0.5 - 3.6 12/07/2017 [facility] CARDIAC ENZYMES Troponin-I <0.02 0.00 - 0.40 12/07/2017 [facility] CHEM PANEL eGFR 101 12/07/2017 Result Comment: [...] should be multiplied by the estimated BMI. [facility] CHEM PANEL A/G Ratio 0.7 0.7 - 1.6 12/07/2017 [facility] CHEM PANEL B/C Ratio 11 6 - 25 12/07/2017 [facility] CHEM PANEL Globulin 4.1 2.7 - 4.2 12/07/2017 [facility] CHEM PANEL Bili Total 0.3 0.2 - 1.3 12/07/2017 [facility] CHEM PANEL AGAP 7.7 10.0 - 20.0 12/07/2017 [facility] CHEM PANEL Alk Phos 55 39 - 136 12/07/2017 [facility] CHEM PANEL ALT 26 0 - 65 12/07/2017 [facility] CHEM PANEL AST 19 0 - 37 12/07/2017 [facility] CHEM PANEL Calcium Lvl 8.8 8.5 - 10.5 12/07/2017 [facility] CHEM PANEL Total Protein 7.1 6.4 - 8.4 12/07/2017 [facility] CHEM PANEL Albumin Lvl 3.0 3.5 - 5.0 12/07/2017 [facility] CHEM PANEL Chloride Lvl 103 95 - 109 12/07/2017 [facility] CHEM PANEL CO2 32 24 - 32 12/07/2017 [facility] CHEM PANEL Potassium Lvl 3.7 3.5 - 5.1 12/07/2017 [facility] CHEM PANEL Sodium Lvl 139 135 - 145 12/07/2017 [facility] CHEM PANEL Creatinine Lvl 0.85 0.50 - 1.40 12/07/2017 [facility] CHEM PANEL BUN 9 7 - 22 12/07/2017 [facility] CHEM PANEL Glucose Lvl 91 70 - 99 12/07/2017 [facility] HEMATOLOGY Segs 62.3 45.0 - 75.0 12/07/2017 [facility] HEMATOLOGY Eosinophils 1.2 0.0 - 4.0 12/07/2017 [facility] HEMATOLOGY Monocytes 9.9 2.0 - 12.0 12/07/2017 [facility] HEMATOLOGY Segs-Bands # 8.1 1.5 - 8.1 12/07/2017 [facility] HEMATOLOGY Lymphocytes # 3.3 1.0 - 5.5 12/07/2017 [facility] HEMATOLOGY Basophils 1.4 0.0 - 1.0 12/07/2017 [facility] HEMATOLOGY Monocytes # 1.3 0.0 - 0.8 12/07/2017 [facility] HEMATOLOGY Eosinophils # 0.2 0.0 - 0.5 12/07/2017 [facility] HEMATOLOGY Basophils # 0.2 0.0 - 0.2 12/07/2017 [facility] HEMATOLOGY Lymphocytes 25.2 20.0 - 40.0 12/07/2017 [facility] HEMATOLOGY INR 0.97 0.85 - 1.17 12/07/2017 [facility] HEMATOLOGY PT 12.9 12.0 - 14.7 12/07/2017 [facility] PTT 30.5 22.9 - 35.8 12/07/2017 [facility] MPV 8.7 7.4 - 10.4 12/07/2017 [facility] Hgb 15.6 14.0 - 18.0 12/07/2017 [facility] RBC 5.13 4.70 - 6.10 12/07/2017 [facility] Hct 46.9 42.0 - 54.0 12/07/2017 [facility] MCV 91.5 80.0 - 94.0 12/07/2017 [facility] MCH 30.4 27.0 - 31.0 12/07/2017 [facility] MCHC 33.2 32.0 - 36.0 12/07/2017 [facility] RDW 14.6 11.5 - 14.5 12/07/2017 [facility] Platelet 223 133 - 450 12/07/2017 [facility] WBC 13.0 3.7 - 10.4 12/07/2017 [facility] VIRAL - SEROLOGY Influ A Negative (12/06/17 2:43 PM) Negative 12/06/2017 [facility] VIRAL - SEROLOGY Influ B Negative (12/06/17 2:43 PM) Negative 12/06/2017 [facility] CHEM PANEL Lactic Acid Lvl 0.7 0.5 - 2.2 10/16/2017 [facility] CARDIAC ENZYMES Total CK 64 12 - 191 10/16/2017 [facility] CARDIAC ENZYMES BNP 20 <=100 pg/mL 10/16/2017 [facility] CARDIAC ENZYMES Troponin-I <0.02 0.00 - 0.40 10/16/2017 [facility] CARDIAC ENZYMES CK MB 2.5 0.5 - 3.6 10/16/2017 [facility] CARDIAC ENZYMES CK MB Index 3.9 0.0 - 2.5 10/16/2017 [facility] CHEM PANEL eGFR 89 10/16/2017 Result Comment: [...] should be multiplied by the estimated BMI. [facility] CHEM PANEL AGAP 11.0 10.0 - 20.0 10/16/2017 [facility] CHEM PANEL Calcium Lvl 8.5 8.5 - 10.5 10/16/2017 [facility] CHEM PANEL CO2 27 24 - 32 10/16/2017 [facility] CHEM PANEL BUN 10 7 - 22 10/16/2017 [facility] CHEM PANEL Glucose Lvl 216 70 - 99 10/16/2017 [facility] CHEM PANEL Chloride Lvl 104 95 - 109 10/16/2017 [facility] CHEM PANEL Potassium Lvl 4.0 3.5 - 5.1 10/16/2017 [facility] CHEM PANEL Sodium Lvl 138 135 - 145 10/16/2017 [facility] CHEM PANEL Creatinine Lvl 0.98 0.50 - 1.40 10/16/2017 [facility] HEMATOLOGY PTT 31.3 22.9 - 35.8 10/16/2017 [facility] HEMATOLOGY MPV 8.9 7.4 - 10.4 10/16/2017 [facility] HEMATOLOGY Platelet 230 133 - 450 10/16/2017 [facility] HEMATOLOGY MCHC 33.3 32.0 - 36.0 10/16/2017 [facility] HEMATOLOGY RDW 14.0 11.5 - 14.5 10/16/2017 [facility] MCH 31.0 27.0 - 31.0 10/16/2017 [facility] HEMATOLOGY MCV 93.1 80.0 - 94.0 10/16/2017 [facility] Hct 46.7 42.0 - 54.0 10/16/2017 [facility] RBC 5.02 4.70 - 6.10 10/16/2017 [facility] Hgb 15.6 14.0 - 18.0 10/16/2017 [facility] WBC 14.4 3.7 - 10.4 10/16/2017 [facility] HEMATOLOGY PT 13.8 12.0 - 14.7 10/16/2017 [facility] INR 1.06 0.85 - 1.17 10/16/2017 [facility] Segs-Bands # 11.9 1.5 - 8.1 10/16/2017 [facility] Lymphocytes # 1.6 1.0 - 5.5 10/16/2017 [facility] Basophils 0.9 0.0 - 1.0 10/16/2017 [facility] Monocytes # 0.7 0.0 - 0.8 10/16/2017 [facility] Basophils # 0.1 0.0 - 0.2 10/16/2017 [facility] Monocytes 5.2 2.0 - 12.0 10/16/2017 [facility] Lymphocytes 11.0 20.0 - 40.0 10/16/2017 [facility] HEMATOLOGY Segs 82.9 45.0 - 75.0 10/16/2017 [facility] ELECTROLYTES AGAP 12.4 10.0 - 20.0 07/04/2016 [facility] ELECTROLYTES eGFR 88 07/04/2016 Result Comment: The [...] should be multiplied by the estimated BMI. [facility] ELECTROLYTES Chloride Lvl 106 95 - 109 07/04/2016 [facility] ELECTROLYTES CO2 26 24 - 32 07/04/2016 [facility] ELECTROLYTES Calcium Lvl 8.5 8.5 - 10.5 07/04/2016 [facility] ELECTROLYTES Potassium Lvl 4.4 3.5 - 5.1 07/04/2016 [facility] ELECTROLYTES Sodium Lvl 140 135 - 145 07/04/2016 [facility] ELECTROLYTES Glucose Lvl 129 70 - 99 07/04/2016 [facility] ELECTROLYTES Creatinine Lvl 1.00 0.50 - 1.40 07/04/2016 [facility] ELECTROLYTES BUN 17 7 - 22 07/04/2016 [facility] HEMATOLOGY Platelet 181 133 - 450 07/04/2016 [facility] HEMATOLOGY MCHC 32.8 32.0 - 36.0 07/04/2016 [facility] HEMATOLOGY RDW 14.3 11.5 - 14.5 07/04/2016 [facility] HEMATOLOGY MCH 29.5 27.0 - 31.0 07/04/2016 [facility] HEMATOLOGY Hgb 14.4 14.0 - 18.0 07/04/2016 [facility] HEMATOLOGY WBC 26.0 3.7 - 10.4 07/04/2016 [facility] HEMATOLOGY RBC 4.89 4.70 - 6.10 07/04/2016 [facility] HEMATOLOGY MPV 8.1 7.4 - 10.4 07/04/2016 [facility] HEMATOLOGY Hct 44.0 42.0 - 54.0 07/04/2016 [facility] HEMATOLOGY MCV 89.9 80.0 - 94.0 07/04/2016 [facility] CHEM PANEL Lactic Acid Lvl 1.1 0.5 - 2.2 07/02/2016 [facility] CARDIAC ENZYMES CK MB Index 1.6 0.0 - 2.5 07/02/2016 [facility] CARDIAC ENZYMES CK MB 2.8 0.5 - 3.6 07/02/2016 [facility] CARDIAC ENZYMES Troponin-I <0.02 0.00 - 0.40 07/02/2016 [facility] CARDIAC ENZYMES Total CK 172 12 - 191 07/02/2016 [facility] CARDIAC ENZYMES BNP 14 <=100 pg/mL 07/02/2016 [facility] CHEM PANEL AST 32 0 - 37 07/02/2016 [facility] CHEM PANEL Alk Phos 83 39 - [...] should be multiplied by the estimated BMI. [facility] CHEM PANEL Total Protein 8.1 6.4 - 8.4 07/02/2016 [facility] CHEM PANEL Albumin Lvl 3.1 3.5 - 5.0 07/02/2016 [facility] CHEM PANEL Globulin 5.0 2.7 - 4.2 07/02/2016 [facility] CHEM PANEL A/G Ratio 0.6 0.7 - 1.6 07/02/2016 [facility] CHEM PANEL Calcium Lvl 8.9 8.5 - 10.5 07/02/2016 [facility] CHEM PANEL B/C Ratio 10 6 - 25 07/02/2016 [facility] CHEM PANEL AGAP 12.1 10.0 - 20.0 07/02/2016 [facility] CHEM PANEL Creatinine Lvl 0.79 0.50 - [...] 5.1 07/02/2016 Result Comment: Slight hemolysis present. [facility] HEMATOLOGY Segs-Bands # 10.5 1.5 - 8.1 [...] Lymphocytes # 1.7 1.0 - 5.5 07/02/2016 [facility] HEMATOLOGY Segs 75.7 45.0 - 75.0 07/02/2016 [facility] HEMATOLOGY MCHC 33.7 32.0 - 36.0 07/02/2016 [facility] HEMATOLOGY RDW 13.9 11.5 - 14.5 07/02/2016 [facility] HEMATOLOGY Platelet 194 133 - 450 07/02/2016 [facility] HEMATOLOGY Hct 48.0 42.0 - 54.0 07/02/2016 [facility] HEMATOLOGY Hgb 16.2 14.0 - 18.0 07/02/2016 [facility] HEMATOLOGY RBC 5.40 4.70 - 6.10 07/02/2016 [facility] HEMATOLOGY MCH 30.0 27.0 - 31.0 07/02/2016 [facility] HEMATOLOGY MCV 88.9 80.0 - 94.0 07/02/2016 [facility] HEMATOLOGY MPV 8.1 7.4 - 10.4 07/02/2016 [facility] HEMATOLOGY WBC 13.9 3.7 - 10.4 07/02/2016 [facility] CARDIAC ENZYMES CK MB 2.2 0.5 - 3.6 04/11/2016 [facility] CARDIAC ENZYMES Total CK 69 12 - 191 04/11/2016 [facility] CARDIAC ENZYMES BNP 18 <=100 pg/mL 04/11/2016 [facility] CARDIAC ENZYMES Troponin-I <0.02 0.00 - 0.40 04/11/2016 [facility] CARDIAC ENZYMES CK MB Index 3.2 0.0 [...] Chloride Lvl 102 95 - 109 04/11/2016 [facility] CHEM PANEL Glucose Lvl 116 70 - 99 04/11/2016 [facility] CHEM PANEL AGAP 9.6 10.0 - 20.0 04/11/2016 [facility] CHEM PANEL B/C Ratio 9 6 - 25 04/11/2016 [facility] CHEM PANEL Bili Total 0.4 0.2 - 1.3 04/11/2016 [facility] CHEM PANEL Alk Phos 79 39 - 136 04/11/2016 [facility] CHEM PANEL ALT 16 0 - 65 04/11/2016 [facility] CHEM PANEL AST 14 0 - 37 04/11/2016 [facility] CHEM PANEL Albumin Lvl 2.8 3.5 - 5.0 04/11/2016 [facility] CHEM PANEL CO2 29 24 - 32 04/11/2016 [facility] CHEM PANEL Total Protein 7.0 6.4 - 8.4 04/11/2016 [facility] CHEM PANEL Calcium Lvl 8.4 8.5 - 10.5 04/11/2016 [facility] CHEM PANEL Creatinine Lvl 0.89 0.50 - 1.40 04/11/2016 [facility] CHEM PANEL BUN 8 7 - 22 04/11/2016 [facility] CHEM PANEL Potassium Lvl 3.6 3.5 - 5.1 04/11/2016 [facility] CHEM PANEL Sodium Lvl 137 135 - 145 04/11/2016 [facility] CHEM PANEL A/G Ratio 0.7 0.7 - 1.6 04/11/2016 [facility] CHEM PANEL Globulin 4.2 2.7 - 4.2 04/11/2016 [facility] HEMATOLOGY RDW 14.4 11.5 - 14.5 04/11/2016 [facility] HEMATOLOGY Platelet 214 133 - 450 04/11/2016 [facility] MPV 7.7 7.4 - 10.4 04/11/2016 [facility] MCH 29.1 27.0 - 31.0 04/11/2016 [facility] MCHC 32.4 32.0 - 36.0 04/11/2016 [facility] Hgb 14.9 14.0 - 18.0 04/11/2016 [facility] HEMATOLOGY Hct 45.9 42.0 - 54.0 04/11/2016 [facility] HEMATOLOGY MCV 89.8 80.0 - 94.0 04/11/2016 [facility] HEMATOLOGY WBC 15.5 3.7 - 10.4 04/11/2016 [facility] RBC 5.12 4.70 - 6.10 04/11/2016 [facility] Monocytes 10.4 2.0 - 12.0 04/11/2016 [facility] RBC Morph Normal (04/11/16 12:54 PM) 04/11/2016 [facility] Lymphocytes 14.5 20.0 - 40.0 04/11/2016 [facility] Segs 72.8 45.0 - 75.0 04/11/2016 [facility] Plt Morph Normal (04/11/16 12:54 PM) 04/11/2016 [facility] Eosinophils 1.0 0.0 - 4.0 04/11/2016 [facility] Basophils # 0.2 0.0 - 0.2 04/11/2016 [facility] Basophils 1.3 0.0 - 1.0 04/11/2016 [facility] Lymphocytes # 2.2 1.0 - 5.5 04/11/2016 [facility] Segs-Bands # 11.3 1.5 - 8.1 04/11/2016 [facility] Eosinophils # 0.2 0.0 - 0.5 04/11/2016 [facility] Monocytes # 1.6 0.0 - 0.8 04/11/2016 [facility] CHEM PANEL eGFR 105 03/21/2016 Result Comment: [...] should be multiplied by the estimated BMI. [facility] CHEM PANEL A/G Ratio 0.5 0.7 - 1.6 03/21/2016 [facility] CHEM PANEL ALT 17 0 - 65 03/21/2016 [facility] CHEM PANEL AST 18 0 - 37 03/21/2016 [facility] CHEM PANEL Alk Phos 60 39 - 136 03/21/2016 [facility] CHEM PANEL Sodium Lvl 139 135 - 145 03/21/2016 [facility] CHEM PANEL Potassium Lvl 4.7 3.5 - 5.1 03/21/2016 [facility] CHEM PANEL Chloride Lvl 106 95 - 109 03/21/2016 [facility] CHEM PANEL CO2 26 24 - 32 03/21/2016 [facility] CHEM PANEL AGAP 11.7 10.0 - 20.0 03/21/2016 [facility] CHEM PANEL Bili Total 0.7 0.2 - 1.3 03/21/2016 [facility] CHEM PANEL B/C Ratio 8 6 - 25 03/21/2016 [facility] CHEM PANEL Total Protein 7.1 6.4 - 8.4 03/21/2016 [facility] CHEM PANEL Albumin Lvl 2.5 3.5 - 5.0 03/21/2016 [facility] CHEM PANEL Globulin 4.6 2.7 - 4.2 03/21/2016 [facility] CHEM PANEL Calcium Lvl 8.3 8.5 - 10.5 03/21/2016 [facility] CHEM PANEL Glucose Lvl 149 70 - 99 03/21/2016 [facility] CHEM PANEL BUN 6 7 - 22 03/21/2016 [facility] CHEM PANEL Creatinine Lvl 0.80 0.50 - 1.40 03/21/2016 [facility] CHEM PANEL Creatinine Lvl 0.82 0.50 - 1.40 03/21/2016 [facility] CHEM PANEL eGFR 104 03/21/2016 Result Comment: [...] should be multiplied by the estimated BMI. [facility] Sed Rate 59 0 - 15 03/21/2016 [facility] MPV 7.6 7.4 - 10.4 03/21/2016 [facility] Platelet 284 133 - 450 03/21/2016 [facility] MCHC 33.2 32.0 - 36.0 03/21/2016 [facility] RDW 14.0 11.5 - 14.5 03/21/2016 [facility] MCH 29.7 27.0 - 31.0 03/21/2016 [facility] Hct 42.8 42.0 - 54.0 03/21/2016 [facility] RBC 4.78 4.70 - 6.10 03/21/2016 [facility] WBC 14.4 3.7 - 10.4 03/21/2016 [facility] MCV 89.5 80.0 - 94.0 03/21/2016 [facility] Hgb 14.2 14.0 - 18.0 03/21/2016 [facility] Monocytes # 0.4 0.0 - 0.8 03/21/2016 [facility] Basophils # 0.1 0.0 - 0.2 03/21/2016 [facility] Basophils 0.5 0.0 - 1.0 03/21/2016 [facility] Segs-Bands # 13.0 1.5 - 8.1 03/21/2016 [facility] Monocytes 2.5 2.0 - 12.0 03/21/2016 [facility] HEMATOLOGY Eosinophils 0.2 0.0 - 4.0 03/21/2016 [facility] HEMATOLOGY Lymphocytes # 0.9 1.0 - 5.5 03/21/2016 [facility] HEMATOLOGY Segs 90.7 45.0 - 75.0 03/21/2016 [facility] HEMATOLOGY Lymphocytes 6.1 20.0 - 40.0 03/21/2016 [facility] IMMUNOLOGY T-Spot.TB Negative (03/21/16 3:42 AM) Negative 03/21/2016 [facility] CHEM PANEL eGFR 102 03/20/2016 Result Comment: [...] should be multiplied by the estimated BMI. [facility] CHEM PANEL Bili Total 0.1 0.2 - 1.3 03/20/2016 [facility] CHEM PANEL Alk Phos 65 39 - 136 03/20/2016 [facility] CHEM PANEL AST 13 0 - 37 03/20/2016 [facility] CHEM PANEL Chloride Lvl 103 95 - 109 03/20/2016 [facility] CHEM PANEL Potassium Lvl 3.4 3.5 - 5.1 03/20/2016 [facility] CHEM PANEL Sodium Lvl 136 135 - 145 03/20/2016 [facility] CHEM PANEL CO2 28 24 - 32 03/20/2016 [facility] CHEM PANEL Total Protein 7.2 6.4 - 8.4 03/20/2016 [facility] CHEM PANEL Calcium Lvl 8.3 8.5 - 10.5 03/20/2016 [facility] CHEM PANEL Creatinine Lvl 0.85 0.50 - 1.40 03/20/2016 [facility] CHEM PANEL BUN 7 7 - 22 03/20/2016 [facility] CHEM PANEL ALT 16 0 - 65 03/20/2016 [facility] CHEM PANEL Albumin Lvl 2.6 3.5 - 5.0 03/20/2016 [facility] CHEM PANEL Glucose Lvl 85 70 - 99 03/20/2016 [facility] CHEM PANEL B/C Ratio 8 6 - 25 03/20/2016 [facility] CHEM PANEL AGAP 8.4 10.0 - 20.0 [...] HEMATOLOGY MCH 30.1 27.0 - 31.0 03/20/2016 [facility] HEMATOLOGY MCHC 33.5 32.0 - 36.0 03/20/2016 [facility] HEMATOLOGY RDW 14.1 11.5 - 14.5 03/20/2016 [facility] HEMATOLOGY Platelet 278 133 - 450 03/20/2016 [facility] HEMATOLOGY WBC 13.6 3.7 - 10.4 03/20/2016 [facility] HEMATOLOGY RBC 4.97 4.70 - 6.10 03/20/2016 [facility] URINE AND STOOL UA RBC <1 0 - 2 03/20/2016 [facility] URINE AND STOOL UA Mucus Few /LPF None Seen /LPF 03/20/2016 [facility] URINE AND STOOL UA WBC 1 0 - 5 03/20/2016 [facility] URINE AND STOOL UA Urobilinogen <=1.0 mg/dL 0.1 - 1.0 03/20/2016 [facility] URINE AND STOOL UA Leuk Est Negative (03/20/16 2:05 PM) Negative 03/20/2016 [facility] URINE AND STOOL UA Nitrite Negative (03/20/16 2:05 PM) Negative 03/20/2016 [facility] URINE AND STOOL UA Blood Negative (03/20/16 2:05 PM) Negative 03/20/2016 [facility] URINE AND STOOL UA Bili Negative *NA* (03/20/16 2:05 PM) Negative 03/20/2016 [facility] URINE AND STOOL UA Sq Epi Occasional /LPF Few /LPF 03/20/2016 [facility] URINE AND STOOL UA Ketones Negative mg/dL Negative mg/dL 03/20/2016 [facility] URINE AND STOOL UA Glucose Negative mg/dL Negative mg/dL 03/20/2016 [facility] URINE AND STOOL UA Protein Negative mg/dL Negative mg/dL 03/20/2016 [facility] URINE AND STOOL UA pH 7.0 5.0 - 8.0 03/20/2016 [facility] URINE AND STOOL UA Spec Grav 1.018 <=1.030 03/20/2016 [facility] URINE AND STOOL UA Turbidity Clear (03/20/16 2:05 PM) Clear 03/20/2016 [facility] URINE AND STOOL UA Color Yellow *NA* (03/20/16 2:05 PM) Yellow 03/20/2016 [facility] BODY FLUIDS LDH BF Type Pleural (03/08/16 1:05 PM) 03/08/2016 [facility] BODY FLUIDS LDH BF >6000 03/08/2016 [facility] BODY FLUIDS Alb BF Type Pleural *NA* (03/08/16 1:05 PM) 03/08/2016 [facility] BODY FLUIDS Albumin BF 1.8 03/08/2016 [facility] BODY FLUIDS Gluc BF Type Pleural (03/08/16 1:05 PM) 03/08/2016 [facility] BODY FLUIDS Glucose BF <1 03/08/2016 [facility] [facility] eGFR 106 02/07/2016 Result Comment: [...] should be multiplied by the estimated BMI. [facility] CHEM PANEL B/C Ratio 8 6 - 25 02/07/2016 [facility] CHEM PANEL A/G Ratio 0.5 0.7 - 1.6 02/07/2016 [facility] CHEM PANEL Globulin 4.9 2.7 - 4.2 02/07/2016 [facility] CHEM PANEL Bili Total 0.6 0.2 - 1.3 02/07/2016 [facility] CHEM PANEL AGAP 11.9 10.0 - 20.0 02/07/2016 [facility] CHEM PANEL Alk Phos 50 39 - 136 02/07/2016 [facility] CHEM PANEL Albumin Lvl 2.4 3.5 - 5.0 02/07/2016 [facility] CHEM PANEL AST 18 0 - 37 02/07/2016 [facility] CHEM PANEL ALT 20 0 - 65 02/07/2016 [facility] CHEM PANEL Total Protein 7.3 6.4 - 8.4 02/07/2016 [facility] CHEM PANEL BUN 6 7 - 22 02/07/2016 [facility] CHEM PANEL Creatinine Lvl 0.78 0.50 - [...] Total Protein 6.9 6.4 - 8.4 02/06/2016 [facility] CHEM PANEL Albumin Lvl 2.4 3.5 - [...] PANEL AGAP 11.9 10.0 - 20.0 02/06/2016 [facility] CHEM PANEL Bili Total 0.8 0.2 - [...] PANEL LDH 650 98 - 192 02/05/2016 [facility] CHEM PANEL Total Protein 6.3 6.4 - 8.4 02/05/2016 [facility] BODY FLUIDS Meso BF Occasional (02/05/16 3:30 PM) 02/05/2016 [facility] BODY FLUIDS Color BF Light Yellow (02/05/16 3:30 PM) Colorless 02/05/2016 [facility] BODY FLUIDS CellCnt BF Type Pleural (02/05/16 3:30 PM) 02/05/2016 [facility] BODY FLUIDS Macrophage BF 11 02/05/2016 [facility] BODY FLUIDS Segs BF 71 02/05/2016 [facility] BODY FLUIDS Lymph BF 18 02/05/2016 [facility] BODY FLUIDS WBC BF 1675 02/05/2016 [facility] BODY FLUIDS Clarity BF Slight Cloudy (02/05/16 3:30 PM) Clear 02/05/2016 [facility] BODY FLUIDS RBC BF 175 02/05/2016 [facility] BODY FLUIDS Gluc BF Type Pleural (02/05/16 [...] [facility] FLU[facility] LDH BF 5224 02/05/2016 [facility] BODY FLUIDS LDH BF Type Pleural (02/05/16 3:30 PM) 02/05/2016 [facility] BODY FLUIDS Trig BF Type Pleural *NA* (02/05/16 3:30 PM) 02/05/2016 [facility] BODY FLUIDS Trig BF 16 02/05/2016 [facility] BODY FLUIDS Prot BF Type Pleural *NA* (02/05/16 3:30 PM) 02/05/2016 [facility] BODY FLUIDS Protein BF 4.4 02/05/2016 [facility] BODY FLUIDS Lipase BF Type Pleural *NA* (02/05/16 3:30 PM) 02/05/2016 [facility] BODY FLUIDS Lipase BF 48 02/05/2016 [facility] CHEM PANEL eGFR 105 02/05/2016 Result Comment: [...] should be multiplied by the estimated BMI. [facility] CHEM PANEL BUN 6 7 - 22 02/05/2016 [facility] CHEM PANEL Creatinine Lvl 0.80 0.50 - 1.40 02/05/2016 [facility] CHEM PANEL Sodium Lvl 138 135 - 145 02/05/2016 [facility] CHEM PANEL Potassium Lvl 3.9 3.5 - 5.1 02/05/2016 [facility] CHEM PANEL Chloride Lvl 103 95 - 109 02/05/2016 [facility] CHEM PANEL CO2 26 24 - 32 02/05/2016 [facility] CHEM PANEL AGAP 12.9 10.0 - 20.0 02/05/2016 [facility] CHEM PANEL B/C Ratio 8 6 - 25 02/05/2016 [facility] CHEM PANEL Calcium Lvl 8.2 8.5 - 10.5 02/05/2016 [facility] CHEM PANEL Albumin Lvl 2.6 3.5 - 5.0 02/05/2016 [facility] CHEM PANEL Globulin 4.5 2.7 - 4.2 02/05/2016 [facility] CHEM PANEL ALT 24 0 - 65 02/05/2016 [facility] CHEM PANEL A/G Ratio 0.6 0.7 - 1.6 02/05/2016 [facility] CHEM PANEL AST 23 0 - 37 02/05/2016 [facility] CHEM PANEL Alk Phos 56 39 - 136 02/05/2016 [facility] CHEM PANEL Bili Total 0.8 0.2 - 1.3 02/05/2016 [facility] HEMATOLOGY Platelet 238 133 - 450 02/05/2016 [facility] HEMATOLOGY MPV 8.3 7.4 - 10.4 02/05/2016 [facility] HEMATOLOGY MCHC 33.0 32.0 - 36.0 02/05/2016 [facility] HEMATOLOGY MCH 30.4 27.0 - 31.0 02/05/2016 [facility] HEMATOLOGY RDW 13.8 11.5 - 14.5 02/05/2016 [facility] HEMATOLOGY Hgb 14.7 14.0 - 18.0 02/05/2016 [facility] HEMATOLOGY WBC 11.8 3.7 - 10.4 02/05/2016 [facility] HEMATOLOGY RBC 4.84 4.70 - 6.10 02/05/2016 [facility] HEMATOLOGY Hct 44.6 42.0 - 54.0 02/05/2016 [facility] HEMATOLOGY MCV 92.0 80.0 - 94.0 02/05/2016 [facility] HEMATOLOGY Lymphocytes # 1.3 1.0 - 5.5 02/05/2016 [facility] HEMATOLOGY Basophils # 0.1 0.0 - 0.2 02/05/2016 [facility] HEMATOLOGY Basophils 1.2 0.0 - 1.0 02/05/2016 [facility] HEMATOLOGY Eosinophils # 0.4 0.0 - 0.5 02/05/2016 [facility] HEMATOLOGY Monocytes # 1.5 0.0 - 0.8 02/05/2016 [facility] HEMATOLOGY Segs-Bands # 8.5 1.5 - 8.1 02/05/2016 [facility] HEMATOLOGY Monocytes 12.7 2.0 - 12.0 02/05/2016 [facility] HEMATOLOGY Segs 71.5 45.0 - 75.0 02/05/2016 [facility] HEMATOLOGY Eosinophils 3.7 0.0 - 4.0 02/05/2016 [facility] HEMATOLOGY Lymphocytes 10.9 20.0 - 40.0 02/05/2016 [facility] HEMATOLOGY Sed Rate 72 0 - 15 02/04/2016 [facility] BODY FLUIDS Prot BF Type Pleural *NA* (02/04/16 11:00 AM) 02/04/2016 [facility] Protein BF 6.0 02/04/2016 [facility] LDH BF >6000 02/04/2016 [facility] LDH BF Type Pleural (02/04/16 11:00 AM) 02/04/2016 [facility] FLUIDS Lymph BF See Note 3 (02/04/16 11:00 AM) 02/04/2016 Result Comment: Cell diff not performed. No viable cells. All necrotic. per Dr. Klein 02/04/2016 14:14 [facility] FLUIDS Segs BF See Note 2 (02/04/16 11:00 AM) 02/04/2016 Result Comment: Cell diff not performed. No viable cells. All necrotic. per Dr. Klein 02/04/2016 14:14 [facility] [place] [address] 02/04/2016 [facility] Meso BF See Note 6 (02/04/16 11:00 AM) 02/04/2016 Result Comment: Cell diff not performed. No viable cells. All necrotic. per Dr. Klein 02/04/2016 14:14 [facility] FLUIDS Eos BF See Note 4 (02/04/16 11:00 AM) 02/04/2016 Result Comment: Cell diff not performed. No viable cells. All necrotic. per Dr. Klein 02/04/2016 14:14 [facility] BODY FLUIDS Comment BF Cell diff not performed. No viable cells. All necrotic. per Dr. Klein 02/04/2016 14:14 [facility] [place] 02/04/2016 Result Comment: Cell diff not performed. No viable cells. All necrotic. per Dr. Klein 02/04/2016 14:14 [facility] FLUIDS Macrophage BF See Note 5 (02/04/16 11:00 AM) 02/04/2016 Result Comment: Cell diff not performed. No viable cells. All necrotic. per Dr. Klein 02/04/2016 14:14 [facility] [place] [address] 02/04/2016 [facility] BODY FLUIDS Supernat BF Brown *ABN* (02/04/16 11:00 AM) Colorless 02/04/2016 [facility] BODY FLUIDS CellCnt BF Type Pleural (02/04/16 11:00 AM) 02/04/2016 [facility] BODY FLUIDS Color BF Brown *ABN* (02/04/16 11:00 AM) Colorless 02/04/2016 [facility] BODY FLUIDS Clarity BF See Note 1 (02/04/16 11:00 AM) Clear 02/04/2016 Result Comment: Turbid [facility] BODY FLUIDS Gluc BF Type Pleural *NA* (02/04/16 11:00 AM) 02/04/2016 [facility] BODY FLUIDS Glucose BF 4 02/04/2016 [facility] BODY FLUIDS Alb BF Type Pleural *NA* (02/04/16 11:00 AM) 02/04/2016 [facility] BODY FLUIDS Albumin BF 1.9 02/04/2016 [facility] CHEM PANEL Lactic Acid Lvl 1.1 0.5 - 2.2 02/04/2016 [facility] RF Qnt >600 IU/mL 0 - 20 02/04/2016 [facility] SANDY Positive *ABN* (02/04/16 7:30 AM) Negative 02/04/2016 [facility] C-REACTIVE PROTEIN 34.1 <=2.9 mg/L 02/04/2016 [facility] SS-A (Ro) Ab <0.2 <=0.9 AI 02/04/2016 [facility] SS-B (La) Ab <0.2 <=0.9 AI 02/04/2016 [facility] DNA Ab (DS) Negative (02/04/16 7:30 AM) Negative 02/04/2016 [facility] Sm Ab <0.2 <=0.9 AI 02/04/2016 [facility] SAFETY ATTENDANT Ab 0.5 <=0.9 AI 02/04/2016 [facility] SANDY Interp Pattern appears Speckled, Chromosome Positive 02/04/2016 [facility] SANDY Titer 1:80 *ABN* (02/04/16 7:30 AM) Negative 02/04/2016 [facility] URINE AND STOOL UA Mucus Many /LPF None Seen /LPF 02/04/2016 [facility] URINE AND STOOL UA CaOx Caryn Occasional /HPF None Seen /HPF 02/04/2016 [facility] URINE AND STOOL UA Hyal Cast 10 [...] UA RBC 1 0 - 2 02/04/2016 [facility] URINE AND STOOL UA Urobilinogen 2.0 0.1 - 1.0 02/04/2016 [facility] URINE AND STOOL UA Nitrite Negative (02/03/16 11:41 PM) Negative 02/04/2016 [facility] URINE AND STOOL UA Blood Negative (02/03/16 11:41 PM) Negative 02/04/2016 [facility] CARDIAC ENZYMES CK MB Index 1.4 0.0 - 2.5 02/04/2016 [facility] CARDIAC ENZYMES CK MB 3.2 0.5 - 3.6 02/04/2016 [facility] CARDIAC ENZYMES Total CK 225 12 - 191 02/04/2016 [facility] CARDIAC ENZYMES Troponin-I <0.02 0.00 - 0.40 02/04/2016 [facility] CARDIAC ENZYMES BNP 14 <=100 pg/mL 02/04/2016 [facility] CHEM PANEL Lipase Lvl 77 73 - 393 02/04/2016 [facility] CHEM PANEL Amylase Lvl 52 25 - 115 02/04/2016 [facility] HEMATOLOGY Lymphocytes # 1.6 1.0 - 5.5 02/04/2016 [facility] HEMATOLOGY Segs-Bands # 7.6 1.5 - 8.1 02/04/2016 [facility] HEMATOLOGY Monocytes # 1.2 0.0 - 0.8 02/04/2016 [facility] HEMATOLOGY Basophils 1.2 0.0 - 1.0 02/04/2016 [facility] HEMATOLOGY Eosinophils 6.7 0.0 - 4.0 02/04/2016 [facility] HEMATOLOGY Basophils # 0.1 0.0 - 0.2 02/04/2016 [facility] HEMATOLOGY Eosinophils # 0.8 0.0 - 0.5 02/04/2016 [facility] HEMATOLOGY Segs 67.6 45.0 - 75.0 02/04/2016 [facility] HEMATOLOGY Monocytes 10.5 2.0 - 12.0 02/04/2016 [facility] HEMATOLOGY Lymphocytes 14.0 20.0 - 40.0 02/04/2016 [facility] HEMATOLOGY INR 1.00 0.85 - 1.17 02/04/2016 [facility] HEMATOLOGY PT 13.5 12.0 - 14.7 02/04/2016 [facility] HEMATOLOGY PTT 42.1 22.9 - 35.8 02/04/2016 [facility] HEMATOLOGY Hct 43.2 42.0 - 54.0 02/04/2016 [facility] HEMATOLOGY Hgb 14.4 14.0 - 18.0 02/04/2016 [facility] HEMATOLOGY RBC 4.74 4.70 - 6.10 02/04/2016 [facility] HEMATOLOGY WBC 11.3 3.7 - 10.4 02/04/2016 [facility] HEMATOLOGY Platelet 255 133 - 450 02/04/2016 [facility] HEMATOLOGY MCH 30.2 27.0 - 31.0 02/04/2016 [facility] MCV 91.0 80.0 - 94.0 02/04/2016 [facility] HEMATOLOGY RDW 13.6 11.5 - 14.5 02/04/2016 [facility] HEMATOLOGY MCHC 33.2 32.0 - 36.0 02/04/2016 [facility] HEMATOLOGY MPV 8.4 7.4 - 10.4 02/04/2016 [facility] URINALYSIS UA Blood Trace *ABN* (05/15/2011 16:35:00) ?? >Negative 05/15/2011 ABN [facility] URINALYSIS UA Bili Negative *NA* (05/15/2011 16:35:00) ?? >Negative 05/15/2011 NA [facility] URINALYSIS UA Urobilinogen 0.2 0.1 - 1.0 05/15/2011 Normal [facility] URINALYSIS UA Glucose Negative (05/15/2011 16:35:00) ?? >Negative 05/15/2011 Normal [facility] URINALYSIS UA Bacteria Moderate /HPF (05/15/2011 16:35:00) ?? >None Seen 05/15/2011 Normal [facility] URINALYSIS UA Trichomonas Moderate /HPF *ABN* (05/15/2011 16:35:00) ?? >None Seen 05/15/2011 ABN [facility] URINALYSIS UA RBC 0-2 /HPF (05/15/2011 16:35:00) ?? >0 - 2 05/15/2011 Normal [facility] URINALYSIS UA Nitrite Negative (05/15/2011 16:35:00) ?? >Negative 05/15/2011 Normal [facility] URINALYSIS UA Leuk Est Small *ABN* (05/15/2011 16:35:00) ?? >Negative 05/15/2011 ABN [facility] URINALYSIS Micro? Performed (05/15/2011 16:35:00) ?? 05/15/2011 Normal [facility] URINALYSIS UA Sq Epi Few /LPF (05/15/2011 16:35:00) ?? >Few 05/15/2011 Normal [facility] URINALYSIS UA WBC 6-10 /HPF *ABN* (05/15/2011 16:35:00) ?? >None Seen 05/15/2011 ABN [facility] URINALYSIS UA Ketones Negative *NA* (05/15/2011 16:35:00) ?? >Negative 05/15/2011 NA [facility] URINALYSIS UA Spec Grav 1.025 <<=1.030 05/15/2011 Normal [facility] URINALYSIS UA pH 6.0 5.0 - 8.0 05/15/2011 Normal [facility] URINALYSIS UA Protein Negative (05/15/2011 16:35:00) ?? >Negative 05/15/2011 Normal [facility] URINALYSIS UA Turbidity Clear (05/15/2011 16:35:00) ?? >Clear 05/15/2011 Normal [facility] URINALYSIS UA Color Yellow *NA* (05/15/2011 16:35:00) ?? >Yellow 05/15/2011 NA [facility] Pathology Reports No Data Provided for This [...] Gera Monaco MD, 11/02/2018 12:46 PM 11/02/2018 [facility] XRAY HAND 2 VIEWS IMPRESSION: Periarticular osseous [...] Gera Monaco MD, 11/01/2018 3:08 PM 11/01/2018 [facility] Chest 1view DX Study: Chest 1view DX portable 01/20/2018 0718 hours Clinical Indication: -Pneumonia, tracheostomy tube Comparison: Chest 01/14/2018 FINDINGS: Tracheostomy tube is in satisfactory position. Cardiac size is normal. The lungs are moderately inflated and demonstrate diffuse interstitial opacities consistent with scarring. Extensive pleural opacity in the right hemithorax is stable. No vascular congestion is seen. Feeding tube has been removed. SL: [id number] 01/20/2018 [facility] Esophagus BA swallow function video DX Patient Name: SANDY RIOJAS : 1965; Age: 52 years y/o Male MR: [id number] * MODIFIED BARIUM SWALLOW HISTORY: Dysphagia, COMMENT: A modified barium swallow was performed in conjunction with the speech pathologist in the usual manner. It is noted that the patient had a Pass[place]-Con[place] speaking valve in place during this study. The fluoroscopy time was: 1.19 minutes. Radiation dose: 7.08 mGy. IMPRESSION: Thin barium from a spoon x2: No aspiration or penetration. Thin barium from a cup x2: Flash penetration was noted on the initial swallow. The 2nd swallow, no aspiration or penetration. Thin barium from a straw with consecutive sips: No aspiration or penetration. [place] consistent barium from a spoon x2: No aspiration or penetration. [place] consistency barium from a cup x2: No aspiration or penetration. Barium of pudding consistency: Normal swallowing mechanism, no aspiration or penetration. A cracker impregnated with barium: Normal swallowing mechanism, no aspiration or penetration. Please refer to the speech pathologist report. SL: [id number] 01/16/2018 [facility] Ext Lower Venous Doppler Bilat US Exam: [...] of bilateral lower extremities. SL: [id number] 01/14/2018 [facility] 1view DX Portable chest: The [...] congestion. There are no other new findings. [id number] 01/14/2018 [facility] Abdomen AP DX PROCEDURE: Portable supine abdomen [...] within the stomach, midline upper abdomen. SL: [id number] 01/10/2018 [facility] 1view DX Chest 1view DX [...] in bibasilar effusions and vascular congestion. SL: [id number] 01/08/2018 [facility] 1view DX 1 VIEW CXR. [...] and NG tube. END OF IMPRESSION SL: [id number] 01/07/2018 [facility] Chest 1view DX CHEST RADIOGRAPH SINGLE VIEW INDICATION: Shortness of breath, wheezing COMPARISON: Chest radiograph 12/11/2017 IMPRESSION: The previously seen partially loculated right pleural effusion appears mildly increased in size. Mild pleural effusion at the left lung base is grossly unchanged. There is mild pulmonary vascular congestion. There is stable atelectasis of the right upper lobe. SL:[id number] 01/07/2018 [facility] Brain w/wo contrast MRI Clinical Indication: - [...] mass lesion or hydrocephalus. SL: [id number] 12/13/2017 [facility] Neck soft tissue w contrast CT Clinical [...] thickening versus loculated effusion SL: ANNEL 12/11/2017 [facility] 1view DX Clinical Indication: Chest [...] small left pleural effusions. SL: [id number] 12/11/2017 [facility] wo contrast CT Clinical Indication: - loculated effusion Comparison: None TECHNIQUE: Sequential trans-axial images were obtained thru the chest and upper abdomen without iodinated contrast. Oral contrast has been administered. Coronal and sagittal reconstructions were obtained. Dose: ANM=426.96 mGy-cm FINDINGS: LUNG PARENCHYMA AND PLEURA: There [...] 3. Bilateral old healed rib fractures. SL: [id number] 12/07/2017 [facility] Chest 2 views DX CHEST TWO VIEW [...] September of this year. END IMPRESSION SL: [id number] 12/06/2017 [facility] Ext Lower Venous Doppler Unilat Patient Name: SANDY RIOJAS : 1965; Age: 52 years Male MR: [id number] Study: Ext Lower Venous Doppler Unilat US [...] thrombosis within the right lower extremity. SL: [id number] 10/16/2017 [facility] Chest 1view DX Patient Name: BJ ALONZO : 1965; Age: 52 years Male MR: [id number] Study: Chest 1view DX Order Time: 10/16/2017 [...] opacities may represent atelectasis or pneumonia. SL: [id number] 10/16/2017 [facility] Chest 2 views DX Study: Chest 2 [...] appearance of small bilateral pleural effusions. SL: [id number] 07/01/2016 [facility] Chest 2 views DX Chest 2 views [...] pleural effusion. 3. Pulmonary emphysematous changes.. SL: [id number] 04/11/2016 [facility] CTA CTA PULMONARY ARTERIES: HISTORY: [...] bilateral pleural effusions and compressive lung atelectasis. [id number] 03/20/2016 [facility] Chest 2 views DX Chest 2 views [...] wires project over the patient's chest. : [id number] 03/20/2016 [facility] Chest 2 views DX PA and lateral [...] normal. There is no other significant change. [id number] 03/09/2016 [facility] Thoracentesis with catheter VR RIGHT THORACENTESIS: HISTORY: [...] technique, local anesthetic and ultrasound guidance, a 5-[place] Yueh catheter was placed into the right [...] is most likely organized at this point. [id number] 03/09/2016 [facility] Chest 2 views DX PA and lateral [...] noted. There is no other significant change. [id number] 03/08/2016 [facility] Thoracentesis with catheter VR LEFT THORACENTESIS: HISTORY: Recurrent left pleural effusion.. PROCEDURE: Using sterile technique, local anesthetic and ultrasound guidance, a 5-[place] Yueh catheter was placed into the left [...] Procedures in stable condition. MANUEL 13 03/08/2016 [facility] Chest wo contrast CT EXAM: Chest wo [...] wires project over the patient's chest. SL: [id number] 02/08/2016 [facility] Ext Lower Venous Doppler Unilat US EXAM: [...] seen in the right lower extremity. SL: [id number] 02/05/2016 [facility] Thoracentesis with catheter VR Clinical Indication: Other- [...] sterile fashion. Using ultrasound guidance, a 5 [place] sheathed needle was placed in the largest [...] aspiration of 260 mL of fluid. SL: [id number] 02/05/2016 [facility] Chest 1view DX Clinical Indication:50 years Male [...] changes since the last chest x-ray. 02/05/2016 [facility] wo contrast CT Clinical Indication: [...] effusion and minimal right basilar atelectasis. SL: [id number] 02/05/2016 [facility] 1view DX Portable chest: Loculated right pleural effusion is stable compared to 02/03/2016. There is less pleural opacity at the left base. Mild pulmonary venous congestion is again noted. The lungs are other erwin clear. There is no other significant change. [id number] 02/04/2016 [facility] Thoracentesis with catheter VR Clinical Indication: Left pleural effusion; Comparison: Chest x-ray 02/03/2016 CONSENT: Prior to the procedure, the procedure, risks including pneumothorax, benefits and alternatives were discussed with the patient. Written informed consent was obtained. PROCEDURE: The patient was prepped and draped in the usual sterile fashion. Using ultrasound guidance, a 5 [place] sheathed needle was placed in the left [...] 1350 cc of yellow, thick fluid. SL: [id number] 02/04/2016 [facility] Chest w contrast CT PROCEDURE: CT CHEST [...] resolution. 2. Mild atherosclerosis. SL: [id number] 02/04/2016 [facility] Chest 2 views DX Study: CHEST, PA AND LATERAL Clinical Indication: Cough and fever; Comparison: Chest 04/03/2006 FINDINGS: Moderate-sized bilateral loculated pleural effusions have developed. Cardiac size is grossly normal. Mediastinum is not remarkable. No vascular congestion is seen. Chest CT with contrast is recommended for further evaluation. SL: [id number] 02/03/2016 [facility] Consultation Notes No Data Provided for This Section Discharge Summaries No Data Provided for This Section History and Physicals No Data Provided for This Section Vital Signs Vital Sign Value Date Comments Source Systolic (mm Hg) 141 12/26/2018 [facility] Diastolic (mm Hg) 66 12/26/2018 [facility] Heart Rate 82 12/26/2018 [facility] Temperature Oral (F) 36.72 [place] 12/26/2018 [facility] Respitory Rate 18 12/26/2018 [facility] Height 175.3 cm 12/26/2018 [facility] Weight 125.193 12/26/2018 [facility] Systolic (mm Hg) 152 11/23/2018 [facility] Diastolic (mm Hg) 91 11/23/2018 [facility] [...] Health Temperature Oral (F) 98.1 F 03/24/2018 [facility] Systolic (mm Hg) 137 03/24/2018 [facility] Diastolic (mm Hg) 93 03/24/2018 [facility] Systolic (mm Hg) 148 03/24/2018 [facility] Diastolic (mm Hg) 89 03/24/2018 [facility] Respitory Rate 14 03/24/2018 [facility] Systolic (mm Hg) 131 03/24/2018 [facility] Diastolic (mm Hg) 92 03/24/2018 [facility] Weight 112.727 03/24/2018 [facility] BMI Calculated 36.7 03/24/2018 [facility] Height 175.26 cm 03/24/2018 [facility] Respitory Rate 20 03/24/2018 [facility] Heart Rate 54 03/24/2018 [facility] Temperature Oral (F) 97.9 F 03/24/2018 [facility] Systolic (mm Hg) 110 01/22/2018 [facility] Diastolic (mm Hg) 66 01/22/2018 [facility] Heart Rate 86 01/22/2018 [facility] Respitory Rate 18 01/22/2018 [facility] Temperature Oral (F) 98.7 F 01/22/2018 [facility] Systolic (mm Hg) 95 01/22/2018 [facility] Diastolic (mm Hg) 67 01/22/2018 [facility] Heart Rate 82 01/22/2018 [facility] Temperature Oral (F) 99.3 F 01/22/2018 [facility] Respitory Rate 18 01/22/2018 [facility] Respitory Rate 12 01/22/2018 [facility] Systolic (mm Hg) 107 01/22/2018 [facility] Diastolic (mm Hg) 65 01/22/2018 [facility] Heart Rate 69 01/22/2018 [facility] Temperature Oral (F) 98.3 F 01/22/2018 [facility] Height 182.88 cm 01/11/2018 [facility] Height 182.88 cm 01/11/2018 [facility] Height 182.88 cm 01/11/2018 [facility] BMI Calculated 32.2 01/07/2018 [facility] Weight 107.7 01/07/2018 [facility] Weight 107.7 01/07/2018 [facility] Temperature Oral (F) 98.1 F 12/15/2017 [facility] Heart Rate 83 12/15/2017 [facility] Respitory Rate 18 12/15/2017 [facility] Systolic (mm Hg) 90 12/15/2017 [facility] Diastolic (mm Hg) 53 12/15/2017 [facility] Respitory Rate 18 12/15/2017 [facility] Systolic (mm Hg) 100 12/15/2017 [facility] Diastolic (mm Hg) 58 12/15/2017 [facility] Heart Rate 61 12/15/2017 [facility] Temperature Oral (F) 97.8 F 12/15/2017 [facility] Systolic (mm Hg) 94 12/15/2017 [facility] Diastolic (mm Hg) 50 12/15/2017 [facility] Respitory Rate 18 12/15/2017 [facility] Temperature Oral (F) 98.4 F 12/15/2017 [facility] Heart Rate 72 12/15/2017 [facility] Weight 107.2 12/12/2017 [facility] Weight 113.636 12/12/2017 [facility] BMI Calculated 37 12/12/2017 [facility] Height 175.26 cm 12/12/2017 [facility] Temperature Oral (F) 97.9 F 12/07/2017 [facility] Heart Rate 62 12/07/2017 [facility] Respitory Rate 19 12/07/2017 [facility] Systolic (mm Hg) 121 12/07/2017 [facility] Diastolic (mm Hg) 70 12/07/2017 [facility] Systolic (mm Hg) 113 12/07/2017 [facility] Diastolic (mm Hg) 72 12/07/2017 [facility] Respitory Rate 20 12/07/2017 [facility] Heart Rate 58 12/07/2017 [facility] Temperature Oral (F) 97.8 F 12/07/2017 [facility] Weight 109.09 12/07/2017 [facility] Systolic (mm Hg) 119 12/07/2017 [facility] Diastolic (mm Hg) 74 12/07/2017 [facility] Respitory Rate 19 12/07/2017 [facility] Heart Rate 57 12/07/2017 [facility] Temperature Oral (F) 98 F 12/07/2017 [facility] Height 175.26 cm 12/07/2017 [facility] Weight 109.091 12/07/2017 [facility] BMI Calculated 35.52 12/07/2017 [facility] Weight 113.636 12/06/2017 [facility] BMI Calculated 37 12/06/2017 [facility] Height 175.26 cm 12/06/2017 [facility] Respitory Rate 20 10/16/2017 [facility] Systolic (mm Hg) 116 10/16/2017 [facility] Diastolic (mm Hg) 65 10/16/2017 [facility] Respitory Rate 13 10/16/2017 [facility] Temperature Oral (F) 98.2 F 10/16/2017 [facility] Respitory Rate 27 10/16/2017 [facility] Systolic (mm Hg) 116 10/16/2017 [facility] Diastolic (mm Hg) 64 10/16/2017 [facility] Systolic (mm Hg) 123 10/16/2017 [facility] Diastolic (mm Hg) 68 10/16/2017 [facility] Temperature Oral (F) 97.7 F 10/16/2017 [facility] Heart Rate 62 10/16/2017 [facility] Heart Rate 76 10/16/2017 [facility] Temperature Oral (F) 98.9 F 10/16/2017 [facility] Heart Rate 78 10/16/2017 [facility] Weight 113.636 [...] 78 07/03/2016 [facility] Heart Rate 110 07/03/2016 [facility] Temperature Oral (F) 98.0 F 07/03/2016 [facility] Weight 115 07/02/2016 [facility] Height 175.26 cm 07/02/2016 [facility] BMI Calculated 37.44 07/02/2016 [facility] Height 175.26 cm 07/02/2016 [facility] Weight 109.091 07/02/2016 [facility] BMI Calculated 35.52 07/02/2016 [facility] Respitory Rate 18 04/11/2016 [facility] Heart Rate 89 04/11/2016 [facility] Systolic (mm Hg) 124 04/11/2016 [facility] Diastolic (mm Hg) 74 04/11/2016 [facility] Temperature Oral (F) 98.1 F 04/11/2016 [facility] Respitory Rate 20 04/11/2016 [facility] Heart Rate 96 04/11/2016 [facility] Systolic (mm Hg) 133 04/11/2016 [facility] Diastolic (mm Hg) 82 04/11/2016 [facility] Temperature Oral (F) 97.7 F 04/11/2016 [facility] [...] 70 02/08/2016 [facility] Heart Rate 72 02/08/2016 [facility] Temperature Oral (F) 97.8 F 02/08/2016 [facility] [...] 07/28/2012 [facility] Height 175.26 cm 07/28/2012 [facility] Systolic (mm Hg) 155.0 05/16/2011 [facility] Diastolic (mm Hg) 97.0 05/16/2011 [facility] Heart Rate 85.0 05/16/2011 [facility] Temperature Oral (F) 97.9 F 05/16/2011 [facility] Respitory Rate 18.0 05/16/2011 [facility] Height 175.26 cm 05/15/2011 [facility] Weight 118.182 05/15/2011 [facility] Respitory Rate 18.0 05/15/2011 [facility] Heart Rate 89.0 05/15/2011 [facility] Systolic (mm Hg) 140.0 05/15/2011 [facility] Diastolic (mm Hg) 83.0 05/15/2011 [facility] Temperature Oral (F) 98.4 F 05/15/2011 [facility] Encounters Location Location Details Encounter Type Encounter Number Reason For Visit Attending Provider ADM Date DC Date Status Source [facility] Emergency [id number] ROSANNA SCALES 05/15/2011 05/15/2011 Discharged [facility] Emergency [id number] VLADIMIR TELLO 07/28/2012 07/29/2012 Discharged [facility] Inpatient [id number] Mike Enrique 02/04/2016 02/08/2016 [facility] [id number] Nadia Amanda 03/03/2016 [facility] [id number] Nadia Arellano 03/08/2016 03/09/2016 [facility] Outpatient [id number] Nadia Arellano 03/09/2016 03/10/2016 [facility] Observation [id number] Maxx Donis 03/20/2016 03/21/2016 [facility] Emergency [id number] Sus[place] Woods 04/11/2016 04/11/2016 [facility] Inpatient [id number] Nadia Mooneyqui 07/02/2016 07/04/2016 [facility] Emergency [id number] Licha Reillyanter 10/16/2017 10/16/2017 [facility] Observation [id number] Alex Coto 12/06/2017 12/07/2017 [facility] Inpatient [id number] Jesus Rangel 12/12/2017 12/15/2017 [facility] Inpatient [id number] Jose Angel Hogue 01/07/2018 01/22/2018 [facility] Primary Care [facility] Ambulatory Pre-Reg [id number] Daiana Almonte 01/30/2018 01/30/2018 [facility] Emergency [id number] Jese Wolfe 03/24/2018 03/24/2018 [facility] Travel [id number] 07/04/2018 [facility] Office Visit [id number] Rhonda Crooks MD 07/04/2018 07/04/2018 [facility]ORY [facility] Encounter [id number] Rhonda Crooks MD 07/04/2018 07/05/2018 [facility] E-Consult [id number] Zac CarrMN 07/10/2018 [facility] Orders Only [id number] Rhonda Crooks MD 07/11/2018 [facility] Orders Only [id number] Rhonda Crooks MD 07/20/2018 [facility] Oral Surgery Clinic Telephone [id number] Frida Andres 08/08/2018 [facility] CUSTOMER RELATIONS SERVICES Telephone [id number] Reba Grullon 08/08/2018 [facility] Travel [id number] 08/08/2018 [facility] Office Visit [id number] Neptali Hearn CLASSIFIER TENDER 08/08/2018 08/08/2018 [facility] CLINICAL CASE MGMT Clinical Case Mgt [id number] Rosangela Ramos 08/27/2018 [facility] Travel [id number] 09/05/2018 [facility] Office Visit [id number] Neptali Hearn CLASSIFIER TENDER 09/05/2018 09/05/2018 [facility] Travel [id number] 11/01/2018 [facility] CUSTOMER RELATIONS SERVICES Telephone [id number] Carissa Garcia 11/01/2018 [facility]ology [facility] [place] Orders Only [id number] Junior Arreola() 11/01/2018 [facility] Office Visit [id number] Maxx Mohr MD 11/01/2018 11/01/2018 [facility] Diagnostic Radiology [place] Ancillary Procedure [id number] 11/01/2018 11/01/2018 [facility] Diagnostic [facility]iology [place] Ancillary Procedure [id number] 11/01/2018 11/01/2018 [facility] Office Visit [id number] Rhonda Crooks MD 11/23/2018 11/23/2018 [facility] Travel [id number] 12/03/2018 [facility] Travel [id number] 12/26/2018 [facility] Office Visit [id number] Bettye Ferreira MD 12/26/2018 12/26/2018 [facility] Procedures Procedure Code Date Perfomer Comments Source CBC/DIFF 78461 12/03/2018 [facility] COMPREHENSIVE METABOLIC PANEL 47263 12/03/2018 [facility] CBC 735315 12/03/2018 [facility] DIFFERENTIAL, MANUAL 91552 12/03/2018 [facility] XRAY HAND 2 VIEWS 74788 11/01/2018 [facility] XRAY FOOT 2 VIEWS MIN 16339 11/01/2018 [facility] [place] [address] 11/01/2018 [facility] CBC/DIFF 83548 11/01/2018 [facility] COMPREHENSIVE METABOLIC PANEL(DBIL NOT INCLUDED) 50835 11/01/2018 [facility] SANDY 37890 11/01/2018 [facility] COMPLEMENT C3 84201 11/01/2018 [facility] COMPLEMENT C4 36517 11/01/2018 [facility] HEPATITIS PANEL 61698 11/01/2018 [facility] QUANTIFERON TB GOLD 367526 11/01/2018 [facility] QUANTIFERON TB GOLD 305070 11/01/2018 [facility] COMPREHENSIVE METABOLIC PANEL 78770 11/01/2018 [facility] UA CHEMISTRIES 96128 11/01/2018 [facility] T PROT/CREA RATIO,UR 76053 11/01/2018 [facility] URINALYSIS 08348 11/01/2018 [facility] TOTAL PROTEIN/CREATININE RATIO, URINE 52114 11/01/2018 [facility] RA FACTOR 19591 07/05/2018 [facility] CRP, HIGH SENS 79656 07/05/2018 [facility] SED RATE 22042 07/05/2018 [facility] CBC/DIFF 68930 07/05/2018 [facility] COMPREHENSIVE METABOLIC PANEL(DBIL NOT INCLUDED) 99498 07/05/2018 [facility] CCP IGG ABS 85941 07/05/2018 [facility] C-REACTIVE PROTEIN HIGH SENSITIVITY (CRP-HS) 84633 07/05/2018 [facility] COMPREHENSIVE METABOLIC PANEL 57918 07/05/2018 [facility] Closed reduction of dislocation of shoulder [id number] [facility] Closed reduction of dislocation of shoulder [id number] Medical Group Assessment and Plan Assessment and Plan Date Source Extracted from:Title: Clinical Document Author: Tomás Hart MD Date: 01/22/18 Progress Note Cardiology [facility] Impression: New onset [...] Bedtime 01/20/18 levofloxacin (Levaquin) 750 mg PO [id number] 01/16/18 pantoprazole (Protonix) 40 mg PO BID-Before [...] : 1965 Associated Diagnoses: None Author: Jesus Rnagel MD Results Review General results Labs (Last [...] 21) 4.8 (VARGAS 20) 4.5 (VARGAS 19) CO2 H 34 (VARGAS 22) 31 [...] Histories Past Medical History: Resolved Rheumatoid arthritis ([id number]): Resolved. Pleural effusion ([id number]): Resolved. Family History: Hypertension Mother Heart disease Father Procedure history: Closed reduction of dislocation of shoulder ([id number]). Social History Social and Psychosocial Habits Alcohol [...] (VARGAS 18) Cl 103 (VARGAS 21) 101 (VAGRAS 20) 107 (VARGAS 18) Cr 0.60 (VARGAS 21) 0.60 (VARGAS 20) 0.74 (VARGAS 18) BUN 15 (VARGAS 21) 13 (VARGAS [...] NP Date: 12/14/17 Progress Note - Daily [facility] Completed: Nov, 15:24 by Cherise Rodriguez CLASSIFIER TENDER RM: 137 - 2W, SE C1A RIOJAS, [...] Gastrointestinal: Soft, Non-tender, Non-distended. Integumentary: Warm, Dry, Maynard. Neurologic: Alert, Oriented x 3 Psychiatric: Cooperative, [...] be replaced per 12/15/2017 Jazmyn Extracted from:Title: [facility]ist [facility] Discharge Summary Author: Alex Paz MD Date: 12/07/17 [facility] Discharge Summary PATIENT [...] Lovenox DISPO: expect 1 mn stay 12/07/2017 [facility] Extracted from:Title: Clinical Document Author: Mike Enrique DO Date: 02/08/16 Progress Daily [facility] Completed: Jan, 10:54 by Mike Enrique DO [...] Meds (3): 02/04/16 enoxaparin 40 mg SUB-Q [id number] 02/04/16 piperacillin-tazobactam + sodium chloride 0.9% 100 ml ADV 100 mL (Zosyn + sodium chloride 0.9% 100 ml ADV 100 mL) 3.375 gm IVPB [id number] 25 ml/hr 02/04/16 vancomycin + sodium chloride 0.9% INJ 250 mL 1,000 mg IVPB [id number] 250 ml/hr Unscheduled Meds: None PRN Meds [...] Time Meds: None Continuous Infusions: None 02/08/2016 [facility] Plan of Care Plan of Care Date Source IMM Influenza Seasonal Mar to August (>/=19 yrs) 03/26/2019 [facility] Upcoming EncountersDateTypeSpecialtyCare TeamDescription 01/25/2019 Office Visit Rheumatology Ashley Schumacher, Fellow()[address] [place], [place] [phone] [facility] Health MaintenanceDue DateLast DoneComments Colorectal Cancer Scrn Annual (FIT/FOBT) Age 50 to 75 2016 IMM Influenza Seasonal Mar to August (>/=19 yrs) 03/26/2019 12/26/2018 [facility] Upcoming EncountersDateTypeSpecialtyCare TeamDescription 12/26/2018 Office Visit Ent-Otolaryngology Bettye Ferreira III, MD[address] [place], [place] [phone] 01/25/2019 Office Visit Rheumatology Ashley Schumacher, Fellow()[address] [place] [address] [phone] [facility] DateLast DoneComments Colorectal Cancer Scrn Annual (FIT/FOBT) Age 50 to 75 2016 IMM Influenza Seasonal Mar to August (>/=19 yrs) 03/26/2019 12/21/2018 [facility] Upcoming EncountersDateTypeSpecialtyCare TeamDescription 11/23/2018 Office Visit Ent-Otolaryngology TO SEE DR CROOKS 12/03/2018 Lab Appointment Lab 01/25/2019 Office Visit Rheumatology Ashley Schumacher, Fellow()[address] [phone] [facility] DateLast DoneComments Colorectal Cancer Scrn Annual (FIT/FOBT) Age 50 to 75 2016 IMM Influenza Seasonal Mar to August (>/=19 yrs) 03/26/2019 11/23/2018 [facility] Upcoming EncountersDateTypeSpecialtyCare TeamDescription 11/23/2018 Office Visit Ent-Otolaryngology TO SEE DR CROOKS [facility] DateLast DoneComments Colorectal Cancer Scrn Annual (FIT/FOBT) Age 50 to 75 2016 IMM Influenza Seasonal Mar to August (>/=19 yrs) 03/26/2019 11/01/2018 [facility] Upcoming EncountersDateTypeSpecialtyCare TeamDescription 11/01/2018 Office Visit Rheumatology Junior Haddad, Fellow()[address] [place] [address] [phone] Ref#[id number] [facility] DateLast DoneComments Colorectal Cancer Scrn Annual (FIT/FOBT) Age 50 to 75 2016 IMM Influenza Seasonal Oct to August (>/=19 yrs) 03/26/2018 09/05/2018 [facility] Upcoming EncountersDateTypeSpecialtyCare TeamDescription 09/05/2018 Office Visit Ent-Otolaryngology Neptali Hearn, NPLBJ [place] [facility] [address] [place] [address] [phone]) 11/01/2018 Office Visit Rheumatology Junior Haddad, Fellow()[address] [place], [place] [phone] Ref#[id number] [facility] DateLast DoneComforsyth [facility] Colorectal Cancer Scrn Annual (FIT/FOBT) Age 50 to 75 2016 IMM Influenza Seasonal Mar to August (>/=19 yrs) 03/26/2018 08/27/2018 [facility] Upcoming EncountersDateTypeSpecialtyCare TeamDescription 11/01/2018 Office Visit Rheumatology Junior Haddad, Fellow()[address] [place], [place] [phone] Ref#[id number] [facility] DateLast DoneComforsyth [facility] Colorectal Cancer Scrn Annual (FIT/FOBT) Age 50 to 75 2016 IMM Influenza Seasonal Mar to August (>/=19 yrs) 03/26/2018 08/22/2018 [facility] Upcoming EncountersDateTypeSpecialtyCare TeamDescription 08/08/2018 Office Visit Ent-Otolaryngology Neptali Hearn, DEVINLBJ [place] [facility] [address] [place] [address] [phone] (Fax) Rhonda Crooks MD[address] [place] [address] [phone] (Fax) To See Dr. Crooks [facility] DoneComharlan Colorectal Cancer Scrn Annual (FIT/FOBT) Age 50 to 75 2016 IMM Influenza Seasonal Mar to August (>/=19 yrs) 03/26/2018 08/07/2018 [facility] Upcoming EncountersDateTypeSpecialtyCare TeamDescription 08/08/2018 Office Visit Ent-Otolaryngology Neptali Hearn, NPLBJ [place] [facility] Clinical [address] [place] [address] [phone] (Fax) Rhonda Crooks MD[address] [place], [place] [phone] (Fax) To [facility] Dr. Crooks [facility] Abdullahi DoneComharlan Colorectal Cancer Scrn Annual (FIT/FOBT) Age 50 to 75 2016 IMM Influenza Seasonal Oct to August (>/=19 yrs) 03/26/2018 07/26/2018 [facility] Upcoming EncountersDateTypeSpecialtyCare TeamDescription 08/08/2018 Office Visit Ent-Otolaryngology Neptali Hearn, NPLBJ [place] [facility] [address] [place] [address] [phone] (Fax) Rhonda Crooks MD[address] [place] [address] [phone] (Fax) To See Dr. Crooks [facility] Centerharl[facility] Colorectal Cancer Scrn Annual (FIT/FOBT) Age 50 to 75 2016 IMM Influenza Seasonal Mar to August (>/=19 yrs) 03/26/2018 07/25/2018 [facility] IMM Influenza Seasonal Mar to August (>/=19 yrs) 03/26/2018 [facility] Colorectal Cancer Scrn Annual (FIT/FOBT) Age 50 to 75 2016 [facility] Social History Social History Date Source Tobacco [...] End No recent travel history available. 12/26/2018 [facility] Social History TypeResponse Substance Abuse Use: None. Alcohol Past, Type Beer, Liquor. Smoking Status Former smoker; Type: Cigarettes; Exposure to Tobacco Smoke None; Cigarette Smoking Last 365 Days No; Reg Smoking Cessation Counseling No entered on: 03/24/18 12/07/2017 [facility] Social History TypeResponse Substance Abuse Use: None. [...]
--- NOTE | 2019-01-06 11:45 | NUR ---
DR. SIGALA AND JEANA Melchor AT BEDSIDE EVALUATING PATIENTS WOUND. DR. SIGALA WILL CONTACT DR. SILVESTRE THAT DID THE SURGERY
[2019-01-06] MEDS ORDERED: IBUPROFEN 200 MG TAB PO STA (12:13)
[2019-01-06] MEDS ORDERED: ONDANSETRON HCL 4 MG ORAL DISINTEGRATING TAB PO ONE (12:15)
[2019-01-06] MEDS ORDERED: MUPIROCIN 2% OINT 22 GM TUBE TOP ONE (12:15)
[2019-01-06] MEDS ORDERED: HYDROCODONE/APAP 7.5MG-325MG 1 EA TAB PO ONE (12:30)
[2019-01-06] MEDS ORDERED: IBUPROFEN 400 MG TAB PO ONE (12:30)
--- NOTE | 2019-01-06 12:54 | NUR ---
PATIENT CALLED DAUGHTER FOR OUTSIDE RESIDENTIAL SALES PROFESSIONAL. HE VERBALIZED UNDERSTANDING THAT HE NEEDS TO FOLLOW UP WITH DR. SILVESTRE IN 1-2 DAYS. HE STATED HE WILL BE GOING TOMORROW
== END 2019-01-06 12:56 | disposition home or self-care (01) ==
LOC: ER 11:28
DX: T81.32XA Disruption of internal operation (surgical) wound, not elsewhere classified, initial encounter (principal)
CPT/HCPCS: 99282; Q0162